=== PATIENT | female | born 1945 | race Caucasian/White ===

== ENCOUNTER → 2018-01-21 08:53 | Outpatient (CLI) | payer MEDICARE, SELFPAY ==
[2018-01-21 10:24] LABS: Hemoglobin A1c 6.3 % (4.2-6.3)
[2018-01-21 11:03] LABS: ALB/GLOB Ratio 1.1 RATIO (0.9-2.4); AST(SGOT) 18 U/L (15-37); Alanine Aminotransfer ALT/SGPT 25 U/L (13-56); Albumin, Serum 3.9 g/dL (3.2-5.0); Alkaline Phosphatase 88 U/L (45-117); Anion Gap 8 (5-15); BUN 13 mg/dL (7-18); Calcium,Total 9.2 mg/dL (8.5-10.1); Chloride 106 mmol/L (98-107); Cholesterol 186 mg/dL (200); Creatinine, Serum 0.68 mg/dL (0.55-1.02); EST Glomerular Filtration Rate 90 mL/min (>60); Est Glom Filt Rate - Afr Amer 109 mL/min (>60); Globulin 3.7 g/dL (2.2-4.2); Glucose 111 mg/dL (74-106); High Density Lipoprotein 71 mg/dL; Potassium 3.8 mmol/L (3.5-5.1); Protein, Total 7.6 g/dL (6.4-8.2); Sodium Level 139 mmol/L (136-145); Triglycerides 128 mg/dL; Very Low Density Lipoprotein 26 mg/dL (5-40)
== END ==
PROVIDERS: Family Provider Family Medicine; PCP Family Medicine; Visit Provider Family Medicine
DX: E78.2 Mixed hyperlipidemia (principal); R73.09 Other abnormal glucose
CPT/HCPCS: 36415; 80053; 80061; 83036

== ENCOUNTER → 2018-12-18 09:20 | Outpatient (CLI) | payer MEDICARE, SELFPAY ==
[2018-12-18 11:52] LABS: Hematocrit 39.6 % (37-47); Hemoglobin 12.8 g/dl (12.0-15.0); Mean Corp Hgb Conc 32.3 g/gl (32-36); Mean Corpuscular Hgb 29.6 pg (27.0-32.0); Mean Corpuscular Volume 91.5 fL (81-99); Mean Platelet Vol. 10.4 fl (6.2-12.0); Platelet Count 327 K/mm3 (150-450); RBC Distribution Width CV 14.1 % (11.6-14.6); RBC Distribution Width SD 47.5 fl (35.1-43.9); Red Blood Count 4.33 M/mm3 (4.2-5.4); Scan Indicated on CBC? Y/N NO; White Blood Count 6.2 K/mm3 (4.4-11.0)
[2018-12-18 12:55] LABS: AST(SGOT) 21 U/L (15-37); Alanine Aminotransfer ALT/SGPT 29 U/L (13-56); Albumin, Serum 3.8 g/dL (3.2-5.0); Alkaline Phosphatase 65 U/L (45-117); Anion Gap 8 (5-15); BUN 10 mg/dL (7-18); BUN/Creat Ratio 13.9 RATIO (10-20); Calcium,Total 8.9 mg/dL (8.5-10.1); Chloride 106 mmol/L (98-107); Cholesterol 157 mg/dL (200); Creatinine, Serum 0.72 mg/dL (0.55-1.02); EST Glomerular Filtration Rate 84 mL/min (>60); Est Glom Filt Rate - Afr Amer 102 mL/min (>60); Globulin 3.7 g/dL (2.2-4.2); Glucose 82 mg/dL (74-106); High Density Lipoprotein 63 mg/dL; Potassium 4.1 mmol/L (3.5-5.1); Protein, Total 7.5 g/dL (6.4-8.2); Sodium Level 140 mmol/L (136-145); Thyroid Stim Hormone (TSH) 2.06 uIU/mL (0.358-3.74); Triglycerides 110 mg/dL; Very Low Density Lipoprotein 22 mg/dL (5-40)
== END ==
PROVIDERS: Family Provider Family Medicine; PCP Family Medicine; Referring Provider Family Medicine; Visit Provider Family Medicine
DX: R73.09 Other abnormal glucose (principal); E78.2 Mixed hyperlipidemia; R53.1 Weakness; R42 Dizziness and giddiness
CPT/HCPCS: 36415; 80053; 80061; 83036; 84443; 85027

== ENCOUNTER → 2020-12-21 10:15 | Outpatient (CLI) | payer MEDICARE, SELFPAY ==
[2020-12-21 11:32] LABS: AST(SGOT) 14 U/L (15-37); Alanine Aminotransfer ALT/SGPT 23 U/L (13-56); Albumin, Serum 3.8 g/dL (3.2-5.0); Alkaline Phosphatase 78 U/L (45-117); Anion Gap 6 (5-15); BUN 15 mg/dL (7-18); Calcium,Total 9.2 mg/dL (8.5-10.1); Chloride 107 mmol/L (98-107); Creatinine, Serum 0.72 mg/dL (0.55-1.02); EST Glomerular Filtration Rate 85 mL/min (>60); Est Glom Filt Rate - Afr Amer 102 mL/min (>60); Globulin 3.8 g/dL (2.2-4.2); Glucose 122 mg/dL (74-106); Potassium 3.8 mmol/L (3.5-5.1); Protein, Total 7.6 g/dL (6.4-8.2); Sodium Level 139 mmol/L (136-145)
== END ==
PROVIDERS: PCP Family Medicine; Referring Provider Family Medicine; Visit Provider Family Medicine
DX: E78.2 Mixed hyperlipidemia (principal)
CPT/HCPCS: 36415; 80053

== ENCOUNTER 2021-10-16 23:53 | Emergency (ER) | payer MEDICARE, SELFPAY ==
[2021-10-16 23:54] VITALS: BP 201/153; PULSE 71; RESP 17; TEMP 36.6; O2SAT 97; BMI 28.8
--- NOTE | 2021-10-17 00:43 | RAD_ITS ---
STUDY: X-RAY - LUMBAR SPINE REASON FOR EXAM: Female, 76 years old. Back pain TECHNIQUE: 3-6 view(s) of the lumbar spine were obtained. COMPARISON: None FINDINGS: Mild exaggerated lordosis. No focal listhesis. There is no substantial scoliosis. No vertebral body fracture. Moderate degenerative change of the intervertebral disc spaces at L2-L3 with similar change, to a lesser degree, seen throughout remainder the lumbar spine of moderate degenerative change of the facet joints from L3 through S1. No paraspinal soft tissue density. RAD/Lumbar Spine 2 or 3 Views IMPRESSION: 1. No acute abnormality of the lumbar spine. 2. Mild to moderate multilevel degenerative disc and joint disease of the lumbar spine Electronically Signed: Sander Renae MD at 3:32 EST ,
[2021-10-17] MEDS: Ketorolac 15 MG/ML Vial IM (00:49)
[2021-10-17] MEDS: Lidocaine 5% Patch 1 PATCH TOPICAL (00:49)
--- NOTE | 2021-10-17 00:52 | ED.VIS.BACK ---
HPI History of Present Illness Chief Complaint: Back Narrative Narrative: 76-year-old female presenting with her out of concern for back pain. She states that she and her have been moving from [place] to [place] and have been lifting and carrying things. She denies any direct trauma. She states that her back has been hurting her for the last couple of days. She states she is able to ambulate. When she is cooking and cleaning and working it seems to improve, however when she tries to lay flat her back aches. She has been taking ibuprofen with some relief of this but it has not gone away. She has been using a heating pad. Patient denies any loss of bladder bowel control. She denies urinary retention. 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 She admits to one loose stool today. She is not had any other GI complaints. She is not nauseous. PFSH PFSH Home Medications aspirin [Aspir-81] 81 mg PO DAILY 10/17/21 [History Last Taken Unknown] fluoxetine 40 mg DAILY 10/17/21 [History Last Taken Unknown] lidocaine [Lidoderm] See Rx Instructions .ROUTE .COMPLEX #1 ea 10/17/21 [Rx Last Taken Unknown] loratadine [Claritin] 10 mg PO DAILY 10/17/21 [History Last Taken Unknown] multivitamin [Multi-Vitamin] 1 tab PO DAILY 10/17/21 [History Last Taken Unknown] naproxen [Naprosyn] 500 mg PO BID PRN #20 tab 10/17/21 [Rx Last Taken Unknown] Allergy/AdvReac Type Severity Reaction Status Date / Time No Known Allergies Allergy Verified 10/16/21 23:57 Social History Smoking Status: Never smoker ROS ROS ED Constitutional Constitutional ED: Denies chills or fever(s) Eyes Eyes: Denies blurry vision or diplopia ENT ENT ED: Denies rhinorrhea or sore throat Cardiovascular Cardiovascular: Denies chest pain or palpitations Respiratory/Chest Respiratory/Chest: Denies dyspnea or sputum Gastrointestinal Gastrointestinal: Reports diarrhea; Denies abdominal pain, constipation, nausea or vomiting Genitourinary Genitourinary ED: Denies dysuria or hematuria Musculoskeletal Musculoskeletal: Reports back pain Integumentary Denies rash Neurologic Neurologic: Denies headache(s) or paresthesias Psychiatric Psychiatric: Denies anxiety or depression EXAM Physical Exam Const Vital Signs: 10/16/21 23:54 Temperature 97.8 F Temperature Source Temporal Pulse Rate 71 Respiratory Rate 17 Blood Pressure 201/153 H Blood Pressure Mean 169 Pulse Ox 97 Oxygen Delivery Method Room Air Positive well nourished General Appearance ED: NAD; Negative for pallor HEENT Reports moist mucous membranes Negative for trauma Eyes PERRL and EOMs intact bilaterally Resp normal respiratory effort and clear to auscultation bilaterally Cardio regular rate and regular rhythm GI normal to inspection, nondistended, normoactive bowel sounds Back/Spine Back/Spine Narrative: Tenderness to palpation to the bilateral lumbar paraspinal musculature. There is no midline spinal deformity or step-off. Patient able to come from a lying position to sitting and standing without difficulty. Extremity normal to inspection Neuro oriented x3 and no sensory deficits noted Sensorium / Orientation: alert Psych mental status grossly normal Skin no rashes or lesions noted General Skin Exam: Negative for jaundice or pallor MDM MDM MDM Narrative Medical decision making narrative: Patient presenting with lumbar back pain. She has no direct trauma. She states it hurts across her back. She is been lifting and pulling things as she has been moving from [place]. No symptoms of cauda equina syndrome. Patient given Toradol and a Lidoderm patch. She has some improvement with this. X-ray of the lumbar spine on my interpretation shows no acute abnormality although there is some degenerative change. The radiologist agree. She will be given a prescription Naprosyn and follow-up with her primary care physician. Impression: 1. Lumbar strain Lab Data Attestation: I reviewed the patient's lab results. Radiography Diagnostic Testing: Clinical Impression(s) from Imaging Studies Lumbar Spine X-Ray 10/17/21 00:43 IMPRESSION: 1. No acute abnormality of the lumbar spine. 2. Mild to moderate multilevel degenerative disc and joint disease of the lumbar spine Electronically Signed: Sander Renae MD at 3:32 EST , Discharge Plan Triage Chief Complaint: Back ED Provider: Felice Diaz Dx/Rx/DC Orders Instructions: ED Back Sprain/Strain Prescriptions: New naproxen [Naprosyn] 500 mg tablet 500 mg PO BID PRN (Reason: pain) Qty: 20 RF: 0 lidocaine [Lidoderm] 5 % adhesive patch,medicated See Rx Instructions .ROUTE .COMPLEX Qty: 1 RF: 0 No Action fluoxetine 40 mg capsule 40 mg DAILY RF: 0 multivitamin [Multi-Vitamin] Tablet 1 tab PO DAILY RF: 0 aspirin [Aspir-81] 81 mg Tablet,Delayed Release (Dr/Ec) 81 mg PO DAILY RF: 0 loratadine [Claritin] 10 mg Tablet 10 mg PO DAILY RF: 0 Primary Care Provider: Kerwin العراقي Referrals: Kerwin العراقي MD [Primary Care Provider] - Disposition Disposition: Home, Self Care
== END 2021-10-17 03:48 | disposition home or self-care (01) ==
PROVIDERS: Emergency Provider Student in an Organized Health Care Education/Training Program; PCP Family Medicine; Visit Provider Student in an Organized Health Care Education/Training Program
DX: S39.012A Strain of muscle, fascia and tendon of lower back, initial encounter (principal); Y99.0 Civilian activity done for income or pay; X50.0XXA Overexertion from strenuous movement or load, initial encounter; Z79.82 Long term (current) use of aspirin
CPT/HCPCS: 72100; 99282

== ENCOUNTER 2021-10-31 06:50 | Emergency (ER) | payer MEDICARE, SELFPAY ==
[2021-10-31 06:53] VITALS: BP 198/58; PULSE 61; RESP 18; TEMP 36.1; O2SAT 100; BMI 32.9
--- NOTE | 2021-10-31 07:12 | ED.VIS.BACK ---
HPI History of Present Illness Chief Complaint: Back Informant: patient Onset/Context/Timing Onset: Weeks Context: Gradual Onset Timing: Waxes and wanes Quality: Aching and Throbbing Location: Lumbar Current Severity: Moderate Maximum Severity: Severe Narrative Narrative: Patient returns to the ER secondary to continued back pain. She was seen in the emergency room on the eighth after developing back pain. She is in the process of moving and has been lifting and carrying heavy boxes. Patient had an x-ray in the emergency room that showed degenerative changes only. She was treated with naproxen and Lidoderm patches. She followed up with her primary care physician who started her on tizanidine. She was seen by her PCP again yesterday for continued pain and switch to Celebrex instead of naproxen or ibuprofen. She presents back to the emergency room this morning with continued pain and unable to sleep secondary to pain. She does report some pain over the suprapubic area of her abdomen as well. She does note recently having a pessary placed. She states has been urinating without difficulty. Pain does not radiate down her legs. She states when she first stands her legs feel weak for just a few moments, but otherwise no loss of strength. She denies fever or chills. [facility] Medical History Anxiety Depression Inflammatory bowel disease Medical History no medical history Home Medications aspirin [Aspir-81] 81 mg PO DAILY 10/17/21 [History Last Taken Unknown] fluoxetine 40 mg DAILY 10/17/21 [History Last Taken Unknown] lidocaine [Lidoderm] See Rx Instructions .ROUTE .COMPLEX #1 ea 10/17/21 [Rx Last Taken Unknown] loratadine [Claritin] 10 mg PO DAILY 10/17/21 [History Last Taken Unknown] multivitamin [Multi-Vitamin] 1 tab PO DAILY 10/17/21 [History Last Taken Unknown] celecoxib 100 mg PO BID 10/31/21 [History Last Taken Unknown] hydrocodone-acetaminophen 1 tab PO Q6H PRN 3 Days #10 tab 10/31/21 [Rx Last Taken Unknown] tizanidine 4 mg PO TID 10/31/21 [History Last Taken Unknown] Allergy/AdvReac Type Severity Reaction Status Date / Time No Known Allergies Allergy Verified 10/31/21 06:57 Social History Smoking Status: Never smoker ROS ROS ED Constitutional Constitutional ED: Denies chills or fever(s) Eyes Eyes: Denies change in vision ENT ENT ED: Denies sore throat Cardiovascular Cardiovascular: Denies chest pain Respiratory/Chest Respiratory/Chest: Denies cough or dyspnea Gastrointestinal Gastrointestinal: Reports abdominal pain; Denies diarrhea, nausea or vomiting Genitourinary Genitourinary ED: Reports urinary frequency; Denies dysuria Musculoskeletal Musculoskeletal: Reports back pain Integumentary Denies rash Neurologic Neurologic: Denies headache(s), paresthesias or weakness Allergic/Immunologic Allergic/Immunologic ED: Denies urticaria EXAM Physical Exam Const Vital Signs: 10/31/21 06:53 Temperature 96.9 F L Temperature Source Temporal Pulse Rate 61 Respiratory Rate 18 Blood Pressure 198/58 H Blood Pressure Mean 104 Pulse Ox 100 Oxygen Delivery Method Room Air Positive well nourished and well developed General Appearance ED: well developed HEENT Reports moist mucous membranes Eyes PERRL and EOMs intact bilaterally Neck supple Resp normal respiratory effort and clear to auscultation bilaterally Cardio regular rate and regular rhythm GI normal to inspection, nondistended, normoactive bowel sounds and soft to palpation Palpation: tender suprapubic Back/Spine normal to inspection Back/Spine Narrative: Tenderness diffusely over the lumbar spine and lumbar paraspinals. No erythema or overlying skin changes. Extremity normal to inspection Neuro oriented x3 and no sensory deficits noted Sensorium / Orientation: alert Motor Exam: strength 5/5 throughout Skin no rashes or lesions noted MDM MDM MDM Narrative Medical decision making narrative: Patient was given a dose of [place] for pain. Urinalysis and CT flank obtained. Lab Data Attestation: I reviewed the patient's lab results. Labs: Laboratory Results - last 24 hr 10/31/21 07:25 Urine Color Yellow Urine Clarity Clear Urine pH 6.5 Ur Specific [place] 1.010 Urine Protein Negative Urine Glucose (UA) Normal Urine Ketones Negative Urine Occult Blood Negative Urine Nitrite Negative Urine Bilirubin Negative Urine Urobilinogen Normal Ur Leukocyte Esterase 500 H Urine RBC 0 SEEN Urine WBC 0-5 SEEN Ur Squamous Epith Cells 0 SEEN Urine Bacteria 0 SEEN Urine Mucus 0 SEEN Radiography Diagnostic Testing: Clinical Impression(s) from Imaging Studies Abdomen/Pelvis CT 10/31/21 07:45 IMPRESSION: 1. Mildly prominent gastric hernia in the posterior mediastinum. 2. The appendix is not visualized or at least difficult to find but no secondary changes of acute appendicitis. 3. Pronounced old anterior wedge compression fracture of the L1 vertebral body. 4. Mild cardiomegaly. 5. COPD. 6. No suspicious acute abnormality in the abdomen and pelvis. Electronically Signed: Gus Negron MD at 8:30 EDT , Treatment and Re-Evaluation Narrative: Patient has no evidence of acute UTI. CT scan abdomen pelvis reveals an old compression fracture of L1 but no acute findings noted. No evidence of aneurysm. Test results discussed with the patient. She will be started on [place] for pain control. She was made aware of the constipating side effects and will drink prune juice. Return instructions provided. Discharge Plan Triage Chief Complaint: Back ED Provider: Robyn Bose Dx/Rx/DC Orders Clinical Impression: Back pain Instructions: ED Back Pain (Acute or Chronic) Prescriptions: New hydrocodone-acetaminophen 5-325 mg tablet 1 tab PO Q6H PRN (Reason: pain) 3 Days Qty: 10 RF: 0 No Action fluoxetine 40 mg capsule 40 mg DAILY RF: 0 multivitamin [Multi-Vitamin] Tablet 1 tab PO DAILY RF: 0 aspirin [Aspir-81] 81 mg Tablet,Delayed Release (Dr/Ec) 81 mg PO DAILY RF: 0 loratadine [Claritin] 10 mg Tablet 10 mg PO DAILY RF: 0 lidocaine [Lidoderm] 5 % adhesive patch,medicated See Rx Instructions .ROUTE .COMPLEX Qty: 1 RF: 0 tizanidine 4 mg tablet 4 mg PO TID RF: 0 celecoxib 100 mg capsule 100 mg PO BID RF: 0 Primary Care Provider: Kerwin العراقي Referrals: Kerwin العراقي MD [Primary Care Provider] - 1 Week Disposition Disposition: Home, Self Care
[2021-10-31] MEDS: HYDROcodone Bitartrate/Apap 5/325 Tablet PO (07:20)
[2021-10-31 07:39] LABS: Bacteria 0 SEEN /hpf (None Seen); Mucous, Urine 0 SEEN /hpf (<or=2+); Red Blood Cells-Urine 0 SEEN /hpf (0-5); Squamous Epithelial Cells - UA 0 SEEN /hpf (5-10)
[2021-10-31 07:40] LABS: Color, Urine Yellow (Yellow); Glucose, Dipstick Normal (Normal); Ketone-Dipstick Negative (Negative); Leukocyte Esterase-Dipstick 500 /ul (Negative); Nitrite-Dipstick Negative (Negative); Occult Blood-Urine Negative /ul (Negative); Protein-Dipstick Negative (Negative); Urine Bilirubin Dipstick Negative (Negative); Urine Clarity Clear (Clear); Urine Urobilinogen Normal (Normal); Urine pH 6.5 (5.0 - 8.0)
--- NOTE | 2021-10-31 07:45 | CT_ITS ---
EXAM: CT ABDOMEN AND PELVIS WITHOUT INTRAVENOUS CONTRAST CLINICAL INDICATION: Back pain and abdominal pain. TECHNIQUE: Helically acquired images were obtained of the abdomen and pelvis without intravenous contrast. This CT exam was performed using one or more of the following dose reduction techniques: automated exposure control, adjustment of the mA and/or kV according to patient size, and/or use of iterative reconstruction technique. This report was created using [employer] report generation technology. COMPARISON: None. FINDINGS: LOWER THORAX: Mild cardiomegaly. Pulmonary hyperinflation suggestive of COPD. No significant pericardial effusion. ABDOMEN: LIVER: Unremarkable. Homogeneous. GALLBLADDER AND BILE DUCTS: Unremarkable. No calcified gallstones. No gallbladder distention or wall edema. No intra- or extrahepatic biliary ductal dilation. PANCREAS: Unremarkable. No focal cystic mass. SPLEEN: Unremarkable. Normal size without focal cystic or solid mass. ADRENALS: Unremarkable. No nodules. KIDNEYS AND URETERS: Unremarkable. Normal renal size and position. No hydronephrosis. STOMACH AND BOWEL: Unremarkable. No stomach or bowel distention. No focal inflammatory change. PELVIS: APPENDIX: The appendix is not visualized or difficult to find. There are no secondary changes of acute appendicitis. BLADDER: Unremarkable. REPRODUCTIVE: Unremarkable as visualized. No mass. ABDOMEN and PELVIS: INTRAPERITONEAL SPACE: Unremarkable. No ascites or other fluid collection. No free air. BONES/JOINTS: Pronounced old anterior wedge compression fracture of the L1 vertebral body with minimal retropulsion of the posterior superior corner. No suspicious lytic or blastic abnormality. SOFT TISSUES: Chronic prominent gastric hernia in the posterior mediastinum. VASCULATURE: Unremarkable. Abdominal aorta is non-dilated. LYMPH NODES: Unremarkable. No enlarged lymph nodes. CT/Abdomen/Pelvis without Cont IMPRESSION: 1. Mildly prominent gastric hernia in the posterior mediastinum. 2. The appendix is not visualized or at least difficult to find but no secondary changes of acute appendicitis. 3. Pronounced old anterior wedge compression fracture of the L1 vertebral body. 4. Mild cardiomegaly. 5. COPD. 6. No suspicious acute abnormality in the abdomen and pelvis. Electronically Signed: Gus Negron MD at 8:30 EDT ,
[2021-10-31 07:51] LABS: White Blood Cells 0-5 SEEN /hpf (0-5)
[2021-10-31 09:17] VITALS: RESP 16
== END 2021-10-31 09:18 | disposition home or self-care (01) ==
PROVIDERS: Emergency Provider Emergency Medicine; PCP Family Medicine; Visit Provider Emergency Medicine
DX: M54.9 Dorsalgia, unspecified (principal); R10.2 Pelvic and perineal pain
CPT/HCPCS: 74176; 81001; 99283; A4216

== ENCOUNTER 2021-11-15 15:24 | Outpatient (CLI) | payer MEDICARE, SELFPAY ==
[2021-11-15 16:17] LABS: Absolute Neutrophil Count 6.7 X10^3/uL (2.0-7.7); Basophil# 0.07 X10^3/uL; Basophil% 0.7 % (0-1); Eosinophil# 0.17 X10^3/uL; Eosinophils% 1.8 % (0-5); Hematocrit 35.4 % (37-47); Hemoglobin 11.7 g/dL (12.0-15.0); Lymphocyte % 19.6 % (19-41); Mean Corp Hgb Conc 33.1 g/dL (32-36); Mean Corpuscular Hgb 30.4 pg (27.0-32.0); Mean Corpuscular Volume 91.9 fL (81-99); Mean Platelet Vol. 10.5 fl (6.2-12.0); Monocyte# 0.85 X10^3/uL; Monocyte% 8.8 % (0-10); NRBC Flagged by Analyzer 0 % (0-5); Neutrophil # 6.65 X10^3/uL (2.7-7.7); Neutrophil % 68.8 % (47-70); Platelet Count 405 K/mm3 (150-450); RBC Distribution Width CV 13.5 % (11.6-14.6); RBC Distribution Width SD 45.7 fl (35.1-43.9); Red Blood Count 3.85 M/mm3 (4.2-5.4); White Blood Count 9.7 K/mm3 (4.4-11.0)
== END 2021-11-15 23:59 | disposition home or self-care (01) ==
LOC: LAB 15:27
PROVIDERS: PCP Family Medicine; Visit Provider Family Medicine
DX: R10.30 Lower abdominal pain, unspecified (principal); R19.5 Other fecal abnormalities; R11.2 Nausea with vomiting, unspecified; R53.83 Other fatigue
CPT/HCPCS: 36415; 85025

== ENCOUNTER 2024-02-28 03:34 | Emergency (ER) | payer MEDICARE, SELFPAY ==
[2024-02-28 03:35] VITALS: BP 207/104; PULSE 90; RESP 9; TEMP 36.4; O2SAT 98; BMI 32.1
--- NOTE | 2024-02-28 03:54 | ED.VIS.FALL ---
HPI HPI - Fall History of Present Illness Chief Complaint: Back Informant: patient and spouse/S.O. Occured/Mechanism Occurred: Days Mechanism/Context: Yes same level fall Usually ambulates: Without assistance Pain/Injury Pain Location: back and lower extremity Quality of Pain: Dull and Aching Current Severity: Mild Maximum Severity: Mild Associated Symptoms Associated Symptoms: Negative for Parasthesias, Weakness, Loss of function, Inability to ambulate, Loss of consciousness or Amnesia Narrative Narrative: 78-year-old female history of dementia and prior L1 compression fracture. Per her , he states that on Friday she fell at home he believes injuring her mid back area. And landing on her right knee. He said initially he did not think she wanted to get evaluated and they brought her up for several times but she did not want to come in. But he says she is complaining of midthoracic back pain since the fall. No bowel or bladder incontinence. No fever. No recent illness. 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 Depression Inflammatory bowel disease Anxiety Home Medications ?Medication ?Instructions ?Recorded ?Last Taken ?Type aspirin 81 mg tablet,delayed 81 mg PO DAILY 10/17/21 Unknown History release fluoxetine 40 mg capsule 40 mg PO DAILY 10/17/21 Unknown History loratadine 10 mg tablet (Claritin) 10 mg PO DAILY 10/17/21 Unknown History multivitamin 1 tab PO DAILY 10/17/21 Unknown History buspirone 10 mg tablet 10 mg PO TID 02/28/24 Unknown History donepezil 5 mg tablet 5 mg PO QHS 02/28/24 Unknown History melatonin 10 mg capsule 10 mg PO QHS 02/28/24 Unknown History memantine 10 mg tablet 10 mg PO BID 02/28/24 Unknown History naproxen 500 mg tablet 500 mg PO BID 02/28/24 Unknown History Allergy/AdvReac Type Severity Reaction Status Date / Time No Known Allergies Allergy Verified 02/28/24 03:44 Family History no significant family his Surgical History no surgical history Social History Smoking Status: Never smoker ROS ROS ED ROS Narrative They both deny recent illness. Review of Systems ROS Unobtainable: Denies due to encephalopathy Constitutional Constitutional ED: Denies chills or fever(s) ENT ENT ED: Denies ear pain, rhinorrhea or sore throat Cardiovascular Cardiovascular: Denies chest pain Respiratory/Chest Respiratory/Chest: Denies cough Gastrointestinal Gastrointestinal: Denies abdominal pain, diarrhea, nausea or vomiting Genitourinary Genitourinary ED: Denies dysuria Musculoskeletal Musculoskeletal: Reports back pain; Denies arthralgias or neck pain Integumentary Denies abscess or Abrasions Neurologic Neurologic: Denies headache(s) Psychiatric Psychiatric: Denies anxiety Endocrine Endocrinology: Denies polydipsia Hematologic/Lymphatic Hematologic/Lymphatic: Denies easy bleeding Allergic/Immunologic Allergic/Immunologic ED: Denies mouth swelling, tongue swelling or urticaria EXAM Physical Exam Narrative Exam Narrative: 78-year-old female vital signs stable afebrile. Initial blood pressure 207/104. She does not look septic or toxic in any distress. at bedside. H EENT exam pupils round react to light. No signs of trauma to her face or scalp. Nontender no hematomas or lacerations. C-spine and neck nontender. Lungs clear. Heart regular rhythm rate about 90 no murmur. Chest wall and ribs nontender. Abdomen soft nontender. Pelvic girdle intact. No shortening or rotation either hip. She has normal fresh foods clerk strength. Normal range of motion to her arms without deformity or tenderness. Hips are nontender. Right knee has bruising but she is able to flex and extend the right knee. There is minimal swelling. Dorsi and plantarflexion is intact. Left lower extremity is nontender. Neurologically she is awake. She does answer questions follow commands. She does have some dementia. Back there is some redness paraspinal soft tissue from a heating pad on her mid back. She is kyphotic. There is no significant bony tenderness. Const Vital Signs: 02/28/24 03:35 Temperature 97.6 F L Temperature Source Temporal Pulse Rate 90 Respiratory Rate 9 L Blood Pressure 207/104 H Blood Pressure Mean 138 Pulse Ox 98 Oxygen Delivery Method Room Air Positive well nourished and well developed; Negative for cachectic, contractures or unkempt General Appearance ED: well developed and NAD; Negative for unkempt, cachectic or contractures Nutritional Appearance: Negative for cachectic HEENT Reports normocephalic atraumatic; Negative for trauma, contusion, hematoma or tenderness Eyes PERRL and EOMs intact bilaterally General Eye ED: Negative for pale conjunctiva or scleral icterus Neck full ROM, no lymphadenopathy and supple General: Negative for tenderness Chest Wall inspection of chest normal and palpation of chest normal Resp normal respiratory effort, no retractions and clear to auscultation bilaterally Effort and Inspection: Negative for pain with movement Auscultation: Negative for rales, rhonchi, wheezes, diminished lung sounds or other Cardio regular rate, regular rhythm, S1 normal heart sound, S2 normal heart sound and no murmurs Rate: Negative for bradycardia or tachycardic Rhythm: Negative for abnormal rhythm Bruits: Negative for other GI non-tender, non-distended and no masses Inspection: Negative for abdominal distention Auscultation: normoactive bowel sounds Palpation: soft; Negative for guarding or rebound tenderness present Back/Spine no CVA tenderness Back/Spine Narrative: (Thoracic spinal tenderness. In the soft tissue. No bruising. General Back: Negative for CVA tenderness Cervical Spine: Negative for cervical spine tenderness Lumbar Spine / Lower Back: Negative for lumbar spinal tenderness Neuro oriented x3, moves all extremities and no focal motor deficits [place] Coma Scale: document GCS findings Spontaneous Obeys Commands Oriented 15 Sensorium / Orientation: alert, oriented to person, oriented to place and orientation impaired; Negative for oriented to time, confused, lethargic or stuporous Motor Exam: strength 5/5 throughout Psych mental status grossly normal and thought process normal Appearance: Negative for unkempt Attitude: No agitated Mood & Affect: Negative for depressed, anxious or tearful Skin Lesions: no lesions Rashes: no rashes Trauma: Negative for abrasion, laceration or puncture MDM MDM MDM Narrative Medical decision making narrative: 78-year-old female that fell has bruising around her right knee but can flex and extend it. X-ray will be obtained of the knee. And also her thoracic spine. History & Record Review Discussion w/independent historian: Patient and Family Additional record(s) reviewed:: Prior inpatient record, Prior outpatient record, Prior ED visit, Prior labs and No prior records Radiography Diagnostic Testing: Thoracic spine x-ray, interpreted by myself Right knee x-ray, 4 views, interpreted by myself shows Discharge Plan Triage Chief Complaint: Back ED Provider: Riley Warner Dx/Rx/DC Orders Prescriptions: No Action fluoxetine 40 mg capsule 40 mg PO DAILY Patient Comments: TAKE 1 CAPSULE BY MOUTH ONCE DAILY multivitamin [Multi-Vitamin] Tablet 1 tab PO DAILY aspirin [Aspir-81] 81 mg Tablet,Delayed Release (Dr/Ec) 81 mg PO DAILY loratadine [Claritin] 10 mg Tablet 10 mg PO DAILY donepezil 5 mg tablet 5 mg PO QHS buspirone 10 mg tablet 10 mg PO TID memantine 10 mg tablet 10 mg PO BID melatonin 10 mg capsule 10 mg PO QHS naproxen 500 mg tablet 500 mg PO BID Primary Care Provider: Kerwin العراقي Referrals: Kerwin العراقي MD [Primary Care Provider] - Print Language: Croatian
--- NOTE | 2024-02-28 04:15 | RAD_ITS ---
EXAM: XR THORACIC SPINE, 2 VIEWS CLINICAL INDICATION: fall and pain TECHNIQUE: Frontal and lateral views of the thoracic spine. COMPARISON: No relevant prior studies available. FINDINGS: VERTEBRAE: Mild levoscoliosis. Approximately 20% loss of height of T8 that appears old. Marked compression fracture of L1 only seen on the AP view. Also appears old. No spondylolisthesis. No significant facet arthropathy. DISC SPACES: Unremarkable. Disc spaces are maintained. RAD/Thoracic Spine 2 Views IMPRESSION: 1. Mild levoscoliosis. 2. Approximately 20% loss of height of T8 that appears old. Consider CT if clinically indicated. 3. Marked compression fracture of L1 only seen on the AP view. Also appears old. Consider CT if clinically indicated. Electronically Signed: Vivek Brand MD at 5:16 EDT ,
--- NOTE | 2024-02-28 04:15 | RAD_ITS ---
EXAM: XR RIGHT KNEE COMPLETE, 4 OR MORE VIEWS CLINICAL INDICATION: fall TECHNIQUE: Four or more views of the right knee. COMPARISON: No relevant prior studies available. FINDINGS: BONES/JOINTS: Unremarkable. No acute fracture. No subluxation. Normal alignment. Preservation of the joint space. No sclerotic or destructive changes observed. SOFT TISSUES: Unremarkable. No soft tissue swelling or gas. No radiopaque foreign body. RAD/Knee 4 or More Views IMPRESSION: Negative right knee x-rays. Electronically Signed: Vivek Brand MD at 5:13 EDT ,
[2024-02-28] MEDS: HYDROcodone Bitartrate/Apap 5/325 Tablet PO (04:32)
[2024-02-28 04:34] VITALS: BP 199/84; PULSE 74; RESP 18; O2SAT 95
[2024-02-28 05:14] VITALS: BP 164/110; PULSE 79; RESP 18; TEMP 36.6; O2SAT 95
[2024-02-28] MEDS: Electrolyte Solution/Peg's 4000 ML 2000 ML PO (05:16)
== END 2024-02-28 05:24 | disposition home or self-care (01) ==
PROVIDERS: Emergency Provider Emergency Medicine; PCP Family Medicine; Visit Provider Emergency Medicine
DX: M54.6 Pain in thoracic spine (principal); F03.90 Unspecified dementia, unspecified severity, without behavioral disturbance, psychotic disturbance, mood disturbance, and anxiety; S80.01XA Contusion of right knee, initial encounter; W19.XXXA Unspecified fall, initial encounter; Y92.009 Unspecified place in unspecified non-institutional (private) residence as the place of occurrence of the external cause
CPT/HCPCS: 72070; 73564; 99283

== ENCOUNTER 2024-03-08 05:49 | Emergency (ER) | payer MEDICARE, SELFPAY ==
[2024-03-08 05:50] VITALS: BP 134/68; PULSE 89; RESP 18; TEMP 36.5; O2SAT 97; BMI 27.1
--- NOTE | 2024-03-08 06:12 | CT_ITS ---
INDICATION: GI bleed EXAMINATION: CTA abdomen and pelvis - TECHNIQUE: Routine abdominal CT angiogram protocol was performed with IV contrast. MIP images provided. The protocol utilizes one or more of the following dose reduction techniques: automated exposure control, adjustment of mA and/or kV according to patient size,and/or use of iterative reconstruction technique. IV Contrast: IV 100mL Isovue-370 . RADIATION DOSAGE (If Supplied By Facility): CTDIvol = ( 19.10 ) mGy, DLP = ( 801.29 ) mGycm COMPARISON: CT abdomen and pelvis 10/31/2021 FINDINGS: AORTA: Normal caliber. No dissection. Atherosclerotic calcifications and at the origins of the major branches. CELIAC ARTERY: Patent. SMA: Patent. RENAL ARTERIES: Patent. MARICARMEN: Patent. ILIAC ARTERIES: Patent. RETROPERITONEUM: Unremarkable. Other vascular: No definite contrast blush or extravasation to suggest site of active GI bleeding. Detail is suboptimal due to patient motion. LOWER CHEST: Minimal dependent atelectasis in the lung bases. LIVER: Unremarkable. GALLBLADDER/BILE DUCTS: Unremarkable. PANCREAS: Unremarkable. SPLEEN: Unremarkable. ADRENAL GLANDS: Unremarkable. KIDNEYS/URETERS: Unremarkable. BOWEL/MESENTERY: Moderate-sized hiatal hernia increased size compared to prior study. Suggestion of wall thickening of the ascending through transverse colon is likely exaggerated by suboptimal distention. Scattered diverticula throughout the colon. No bowel obstruction. APPENDIX: Identified and normal. PERITONEUM: No free air. No free fluid. REPRODUCTIVE ORGANS: Unremarkable. Pessary noted. BLADDER: Unremarkable. BONES/SOFT TISSUES: No acute abnormality. Marked compression abnormality of L1 vertebral body with increased vertebral body height loss and kyphosis increased compared to the prior study, uncertain age most likely nonacute OTHER: None. CT/CTA Abd/Pelvis W/WO Contrast IMPRESSION: No definite site of active GI bleeding identified. Suggestion of wall thickening ascending through transverse colon is likely nondistention, colitis less likely. Colonic diverticulosis without evidence of acute diverticulitis. Moderate size hiatal hernia, increased compared to prior study. Marked L1 vertebral body compression fracture with increased vertebral body height loss and kyphosis compared to prior study, uncertain age. Electronically Signed: Bertha Sapp MD at 7:52 EDT ,
[2024-03-08] MEDS: 0.9% Normal Saline (1000mL) 1,000 ML 999 ML IV (06:15)
[2024-03-08 06:23] LABS: Absolute Lymphocyte Count 2.76 X10^3/uL (0.83-4.51); Absolute Neutrophil Count 10.4 X10^3/uL (2.0-7.7); Basophil# 0.08 X10^3/uL; Basophil% 0.6 % (0-1); Eosinophil# 0.11 X10^3/uL; Eosinophils% 0.8 % (0-5); Hematocrit 28.7 % (37-47); Hemoglobin 9.3 g/dL (12.0-15.0); Lymphocyte # 2.76 X10^3/ul (0.83-4.51); Mean Corp Hgb Conc 32.4 g/dL (32-36); Mean Corpuscular Volume 92.6 fL (81-99); Mean Platelet Vol. 10.3 fl (6.2-12.0); Monocyte% 7.6 % (0-10); NRBC Flagged by Analyzer 0 % (0-5); Neutrophil # 10.37 X10^3/uL (2.7-7.7); Neutrophil % 71.3 % (47-70); Platelet Count 443 K/mm3 (150-450); RBC Distribution Width CV 14.6 % (11.6-14.6); White Blood Count 14.5 K/mm3 (4.4-11.0)
--- NOTE | 2024-03-08 06:27 | EDS_ITS ---
HPI History of Present Illness Chief Complaint: Nausea/Vomiting Informant: patient, spouse/S.O., family and EMS Narrative Narrative: Patient is a 78-year-old female from home with past medical history of anxiety and depression and as well as IBS and dementia. She was seen in the ER on February 27 secondary to mechanical fall and was found to have a thoracic and lumbar compression fracture. She was placed on Percocet and discharged home with family. Family states that she was recently placed on Celebrex by the family physician secondary to persistent pain. Patient went to bed normally and then awoke this morning covered in emesis that appeared dark/coffee-ground in nature. also states he noticed some dark stools recently. Family reports that patient does appear paler in color than her baseline. 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 Depression Inflammatory bowel disease Anxiety Home Medications ?Medication ?Instructions ?Recorded ?Last Taken ?Type fluoxetine 40 mg capsule 60 mg PO DAILY 10/17/21 Unknown History multivitamin 1 tab PO DAILY 10/17/21 Unknown History buspirone 10 mg tablet 10 mg PO TID 02/28/24 Unknown History melatonin 10 mg capsule 10 mg PO QHS PRN sleep 02/28/24 Unknown History memantine 10 mg tablet 10 mg PO BID 02/28/24 Unknown History oxycodone-acetaminophen 5 mg-325 1 tab PO Q6H PRN pain 7 days #14 02/28/24 Unknown Rx mg tablet (Percocet) tabs celecoxib 100 mg capsule 100 mg PO BID PRN PRN pain 03/08/24 Unknown History polyethylene glycol 3350 17 17 g PO DAILY 03/08/24 Unknown History gram/dose oral powder (ClearLax) sennosides 8.6 mg tablet 17.2 mg PO BID 03/08/24 Unknown History (Evac-U-Gen (sennosides)) Allergy/AdvReac Type Severity Reaction Status Date / Time No Known Allergies Allergy Verified 03/08/24 05:55 Family History no significant family his Surgical History no surgical history Social History Smoking Status: Never smoker ROS ROS ED ROS Narrative Please note review of systems may be unreliable secondary to patient's history of dementia Constitutional Constitutional ED: Denies chills or fever(s) Eyes Eyes: Denies blurry vision or change in vision ENT ENT ED: Denies sore throat Cardiovascular Cardiovascular: Denies chest pain, palpitations or racing heartbeat Respiratory/Chest Respiratory/Chest: Denies cough or dyspnea Gastrointestinal Gastrointestinal: Reports nausea and vomiting; Denies abdominal pain or diarrhea Genitourinary Genitourinary ED: Denies dysuria or hematuria Musculoskeletal Musculoskeletal: Reports back pain Integumentary Denies rash Neurologic Neurologic: Denies headache(s) Hematologic/Lymphatic Hematologic/Lymphatic: Denies easy bleeding or easy bruising EXAM Physical Exam Const Vital Signs: 03/08/24 05:50 Temperature 97.7 F L Temperature Source Oral Pulse Rate 89 Respiratory Rate 18 Blood Pressure 134/68 H Blood Pressure Mean 90 Pulse Ox 97 Oxygen Delivery Method Room Air Positive well nourished and well developed General Appearance ED: well developed and pallor HEENT Reports moist mucous membranes HEENT Narrative: No tongue or lip swelling. No airway edema or compromise No secondary findings in the posterior pharynx to suggest infection No tongue or lip biting noted There is dried dark emesis on the patient's lips consistent with history of coffee-ground emesis Eyes PERRL and EOMs intact bilaterally General Eye ED: Yes pale conjunctiva; Negative for scleral icterus Neck supple Neck Narrative: No nuchal rigidity or meningeal signs Resp normal respiratory effort and clear to auscultation bilaterally Resp Narrative: No nasal flaring retractions tachypnea or accessory muscle use Cardio regular rate and regular rhythm GI normal to inspection, nondistended, normoactive bowel sounds, non-tender, non- distended and no masses GI Narrative: No voluntary guarding or rigidity or pulsatile mass Auscultation: normoactive bowel sounds Palpation: soft Narrative: Rectal tone is normal. Stool is brown in color. No obvious external hemorrhoid noted no obvious internal hemorrhoid palpated Extremity normal to inspection Neuro CN's II-XII intact bilaterally and no sensory deficits noted Neuro Narrative: Patient is at her baseline mental status without focal neurologic deficit Sensorium / Orientation: alert Psych mental status grossly normal Skin no rashes or lesions noted Skin Narrative: Skin is pale in color and capillary refill is at 3 seconds General Skin Exam: pallor; Negative for jaundice MDM MDM MDM Narrative Medical decision making narrative: Patient arrived to the ER hemodynamically stable but family reported coffee- ground emesis. She was recently placed on Celebrex which could be the cause of this. Family states that there is no remote history of alcohol abuse or gastritis. With concern for internal bleeding basic labs were obtained and her hemoglobin is low at 9.3 which is down from a few years ago at 12 but this is well above a transfusion value of 7. The patient's BUN is elevated at 55 which also correlates with upper GI bleed. Stool however is not melanotic. Secondary to concern for GI bleed patient was given IV fluids as well as a Protonix bolus and drip. She is hemodynamically stable and does not need vasopressors or airway protection but with concern for active internal bleeding a CTA will be obtained. Plan of care will be to potentially admit to the hospital for further workup after laboratory studies and CT report are resulted. CTA is still pending and therefore patient will be signed out to the day physician Dr. Jaramillo. History & Record Review Discussion w/independent historian: Patient and Family Lab Data Attestation: I reviewed the patient's lab results. Labs: Laboratory Results - last 24 hr 03/08/24 05:37 WBC 14.5 H RBC 3.10 L Hgb 9.3 L Hct 28.7 L MCV 92.6 MCH 30.0 MCHC 32.4 RDW Std Deviation 49.0 H RDW Coeff of Shon 14.6 Plt Count 443 MPV 10.3 Immature Gran % (Auto) 0.700 Neut % (Auto) 71.3 H Lymph % (Auto) 19.0 Bell % (Auto) 7.6 Eos % (Auto) 0.8 Baso % (Auto) 0.6 Absolute Neuts (auto) 10.4 H Absolute Lymphs (auto) 2.76 Nucleated RBC % 0 Sodium 140 Potassium 3.9 Chloride 109 H Carbon Dioxide 23.0 Anion Gap 8 BUN 55 H Creatinine 0.79 Estim Creat Clear Calc 58.30 Est GFR (MDRD) Af Amer 91 Est GFR (MDRD) Non-Af 75 BUN/Creatinine Ratio 69.7 H Glucose 189 H Calcium 9.0 Total Bilirubin 0.40 Direct Bilirubin 0.09 AST 13 L ALT 22 Alkaline Phosphatase 81 Total Protein 6.5 Albumin 3.1 L Globulin 3.4 Discharge Plan Triage Chief Complaint: Nausea/Vomiting ED Provider: Andes,Regino Dx/Rx/DC Orders Clinical Impression: GI (gastrointestinal bleed), Dementia, Acute blood loss anemia Prescriptions: No Action fluoxetine 40 mg capsule 60 mg PO DAILY Patient Comments: TAKE 1 CAPSULE BY MOUTH ONCE DAILY multivitamin [Multi-Vitamin] Tablet 1 tab PO DAILY buspirone 10 mg tablet 10 mg PO TID memantine 10 mg tablet 10 mg PO BID melatonin 10 mg capsule 10 mg PO QHS PRN (Reason: sleep) oxycodone-acetaminophen [Percocet] 5-325 mg tablet 1 tab PO Q6H PRN (Reason: pain) 7 Days Qty: 14 0RF sennosides [Evac-U-Gen (sennosides)] 8.6 mg tablet 17.2 mg PO BID polyethylene glycol 3350 [ClearLax] 17 gram/dose powder 17 g PO DAILY celecoxib 100 mg capsule 100 mg PO BID PRN PRN (Reason: pain) Primary Care Provider: Kerwin العراقي Referrals: Kerwin العراقي MD [Primary Care Provider] - Print Language: Armenian Disposition Disposition: Acute Care Hospital [facility]
[2024-03-08 06:47] LABS: AST(SGOT) 13 U/L (15-37); Alanine Aminotransfer ALT/SGPT 22 U/L (13-56); Albumin, Serum 3.1 g/dL (3.2-5.0); Alkaline Phosphatase 81 U/L (45-117); Anion Gap 8 (5-15); BUN 55 mg/dL (7-18); BUN/Creat Ratio 69.7 RATIO (10-20); Bilirubin, Direct 0.09 mg/dL (0.00-0.30); Chloride 109 mmol/L (98-107); Creatinine, Serum 0.79 mg/dL (0.55-1.02); EST Glomerular Filtration Rate 75 mL/min (>60); Est Glom Filt Rate - Afr Amer 91 mL/min (>60); Globulin 3.4 g/dL (2.2-4.2); Glucose 189 mg/dL (74-106); Potassium 3.9 mmol/L (3.5-5.1); Protein, Total 6.5 g/dL (6.4-8.2); Sodium Level 140 mmol/L (136-145)
[2024-03-08] MEDS: Pantoprazole Sodium 80 MG in 0.9% Normal Saline (50mL Bag) 15 ML 420 MG IV BOLUS (06:49)
[2024-03-08 06:58] LABS: Prothrombin Time (Protime)PT. 13.4 SECONDS (11.7-14.9)
[2024-03-08] MEDS: Pantoprazole Sodium 80 MG in 0.9% Normal Saline (100mL Bag) 80 ML 10 MG CONT INF (07:30)
[2024-03-08 07:48] VITALS: BP 141/72; PULSE 78; RESP 17; O2SAT 98
[2024-03-08 07:50] LABS: Partial Thromboplast Time 27.8 Seconds (24.1-36.2)
[2024-03-08 08:09] LABS: Bacteria 0 SEEN /hpf (None Seen); Mucous, Urine 0 SEEN /hpf (<or=2+); Red Blood Cells-Urine 0 SEEN /hpf (0-5); Squamous Epithelial Cells - UA 0 SEEN /hpf (5-10); White Blood Cells 0 SEEN /hpf (0-5)
[2024-03-08 08:11] LABS: Color, Urine Straw (Yellow); Glucose, Dipstick Normal (Normal); Ketone-Dipstick 15 mg/dl (Negative); Leukocyte Esterase-Dipstick Negative /ul (Negative); Nitrite-Dipstick Negative (Negative); Occult Blood-Urine Negative /ul (Negative); Protein-Dipstick Negative (Negative); Urine Bilirubin Dipstick Negative (Negative); Urine Clarity Clear (Clear); Urine Urobilinogen Normal (Normal)
[2024-03-08 09:00] VITALS: BP 125/72; PULSE 76; RESP 18; O2SAT 97
[2024-03-08 10:24] LABS: Reflex Lactate? Y
[2024-03-08 10:58] VITALS: BP 135/66; PULSE 78; RESP 18; O2SAT 97
[2024-03-08 11:06] VITALS: BP 135/66; PULSE 78; RESP 18; TEMP 36.6; O2SAT 99
== END 2024-03-08 11:19 | disposition home or self-care (01) ==
PROVIDERS: Emergency Medicine; Emergency Provider Emergency Medicine; PCP Family Medicine; Visit Provider Emergency Medicine
DX: K92.2 Gastrointestinal hemorrhage, unspecified (principal); F03.90 Unspecified dementia, unspecified severity, without behavioral disturbance, psychotic disturbance, mood disturbance, and anxiety; D62 Acute posthemorrhagic anemia; K57.90 Diverticulosis of intestine, part unspecified, without perforation or abscess without bleeding; K58.9 Irritable bowel syndrome, unspecified; I65.29 Occlusion and stenosis of unspecified carotid artery; F41.9 Anxiety disorder, unspecified; E78.5 Hyperlipidemia, unspecified; F32.A Depression, unspecified; K44.9 Diaphragmatic hernia without obstruction or gangrene; M81.0 Age-related osteoporosis without current pathological fracture; Z79.899 Other long term (current) drug therapy
CPT/HCPCS: 74174; 80048; 80076; 81001; 82274; 83605; 85025; 85610; 85730; 86850; 86900; 86901; 96360; 99285; P9612; Q9967; A4216; J3490

== ENCOUNTER 2024-12-18 19:28 | Emergency (ER) | payer MEDICARE, SELFPAY ==
[2024-12-18] VITALS (15 sets, daily range): BP systolic 103–186; BP diastolic 66–93; PULSE 64–79; RESP 16–23; TEMP 36.1–36.8; O2SAT 94–98; BMI 22.7
--- NOTE | 2024-12-18 19:31 | EKG12_ITS ---
Test Reason : STROKE Blood Pressure : */* mmHG Vent. Rate : 77 BPM Atrial Rate : 77 BPM P-R Int : 164 ms QRS Dur : 88 ms QT Int : 436 ms P-R-T Axes : 57 47 82 degrees QTcB Int : 493 ms Sinus rhythm with occasional Premature ventricular complexes Nonspecific ST and T wave abnormality Prolonged QT Abnormal ECG Confirmed by Vivek Ordoñez ([id number]), photo editor GUILLERMINA MELÉNDEZ ([id number]) on 12/20/2024 9:14:39 AM Referred By: TL Confirmed By: Vivek Ordoñez
--- NOTE | 2024-12-18 19:31 | CT_ITS ---
PROCEDURE: STROKE BRAIN/HEAD WITHOUT CONT 12/18/2024 REASON FOR EXAM: NEURO DEFICIT, ACUTE, STROKE SUSPECTED TECHNIQUE: Head CT without intravenous contrast. Coronal and Sagittal reconstruction series were provided. One or more dose reduction techniques were used (e.g., Automated exposure control, adjustment of the mA and/or kV according to patient size, use of iterative reconstruction technique. COMPARISON: None FINDINGS: No acute intracranial hemorrhage, mass, mass effect, midline shift or pathologic extra-axial fluid collection. Mild parenchymal atrophy with commensurate increase in CSF containing spaces. Patchy white matter hypodensities, patient demographics favor chronic microvascular ischemic changes. Paranasal sinuses and mastoid air cells are clear. The calvarium is grossly intact. CT/STROKE Brain/Head without Cont IMPRESSION: No acute intracranial abnormality; no acute infarct, intracranial hemorrhage or extra-axial collection. Chronic microvascular ischemia and involutional changes. Reading Location: [facility]
--- NOTE | 2024-12-18 19:32 | CT_ITS ---
PROCEDURE: STROKE CTA HEAD AND NECK W/CON 12/18/2024 REASON FOR EXAM: NEURO DEFICIT, ACUTE, STROKE SUSPECTED TECHNIQUE: CTA imaging of the head and neck from the aortic arch to the skull vertex with out contrast and with intravenous contrast. Multiplanar and multisequence images were obtained. CONTRAST: Omnipaque 350 VOLUME: 100 mL Not Provided Gauge IV One or more dose reduction techniques were used (e.g., Automated exposure control, adjustment of the mA and/or kV according to patient size, use of iterative reconstruction technique). COMPARISON: None FINDINGS: Aortic Arch: Three-vessel arch branch anatomy. Atherosclerotic calcification without hemodynamically significant stenosis Brachiocephalic and Subclavians: Mild atherosclerotic plaque without significant stenosis. RIGHT Carotid: Right CCA: Mild calcified and soft plaque. Right ICA: Mild calcified and soft plaque. Maximum stenosis (NASCET): 10 % Right ECA: Unremarkable. LEFT Carotid: Left CCA: Unremarkable. Left ICA: Unremarkable. Maximum stenosis (NASCET): 0 % Left ECA: Unremarkable. Vertebrals: Codominant. Arise from the subclavians. Both vertebrals form the basilar. RIGHT Vertebral: Unremarkable. LEFT Vertebral: Unremarkable. Anatomy: [place] anatomy is normal. Aneurysm or avm: No intracranial aneurysms or large vascular malformations are identified. Anterior cerebral arteries: Unremarkable: Middle cerebral arteries: There is abrupt cutoff of the right M1 MCA branch (series 2 image 299), with a short-segment occlusion. There is reconstitution of the distal right M1, with mild-moderate stenosis, likely secondary to noncalcified plaque. Remainder of the M2 and M3 branches appear within normal limits although slightly attenuated in caliber. The left MCA demonstrates normal caliber and perfusion. Basilar artery: Unremarkable. Posterior cerebral arteries: Unremarkable. Other major branches of the posterior circulation: Unremarkable. Major venous structures: Unremarkable. Other findings: Neck: No lymphadenopathy. Lungs: Lung apices are clear. Bones: Degenerative changes of the cervical spine. 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 Scattered atherosclerotic calcification otherwise, without hemodynamically sign ificant stenosis. Red Alert: Findings communicated with on 12/18/2024 at 9 p.m. Reading Location: [facility]
--- NOTE | 2024-12-18 19:32 | EDS_ITS ---
HPI History of Present Illness Chief Complaint: Stroke Alert Informant: spouse/S.O. and family Narrative Narrative: Brought in by EMS prehospital stroke call. On arrival symptoms noted an hour ago upon awakening by significant other. They states she has not herself noted facial droop and left arm weakness. Reported last normal when they went to take a nap at 5:30 PM 2 hours ago. She does have history of dementia denies stroke history denies any blood thinners. Daughter reports she works in a neurology department stating this is a stroke. There was a noted blood pressure medicine started which was losartan stating 6 months ago. Patient reported daughter stating she is a DNR CCA however would want TNK. Per daughter with dementia baseline to self. Does not know place or time. She does not ambulate any assistance however does shuffle her gait. 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 Depression Inflammatory bowel disease Anxiety Home Medications ?Medication ?Instructions ?Recorded ?Last Taken ?Type fluoxetine 40 mg capsule 60 mg PO DAILY 10/17/21 Unkn own History multivitamin 1 tab PO DAILY 10/17/21 Unkn own History buspirone 10 mg tablet 10 mg PO TID 02/28/24 Unknow n History melatonin 10 mg capsule 10 mg PO QHS PRN sleep 02/27 Unknown History memantine 10 mg tablet 10 mg PO BID 02/28/24 Unknow n History polyethylene glycol 3350 17 17 g PO DAILY 03/08/24 Unk nown History gram/dose oral powder (ClearLax) sennosides 8.6 mg tablet 17.2 mg PO BID 03/08/24 Unkn own History (Evac-U-Gen (sennosides)) gabapentin 100 mg capsule 100 mg PO TID PRN PRN for pa in 12/18/24 Unknown History losartan 25 mg tablet 25 mg PO DAILY 12/18/24 Unkn own History trazodone 50 mg tablet 50 mg PO QHS 12/18/24 Unknow n History Allergy/AdvReac Type Severity Reaction Status Date / Time No Known Allergies Allergy Verified 12/18/24 19:34 Social History Smoking Status: Never smoker ROS ROS ED Review of Systems ROS Unobtainable: other Details: dementia EXAM Physical Exam Const Vital Signs: 12/18/24 19:41 12/18/24 19:48 12/18/24 20:00 Temperature 98.0 F 97.6 F L Temperature Source Temporal Temporal Pulse Rate 79 71 Respiratory Rate 23 H 18 Blood Pressure 103/85 H 169/72 H Blood Pressure Mean 91 104 Blood Pressure Source Blood Pressure Position Blood Pressure Location Pulse Ox 97 94 Oxygen Delivery Method Room Air Room Air Room Air 12/18/24 20:07 12/18/24 20:08 12/18/24 20:15 Temperature 97.8 F 97.6 F L Temperature Source Oral Temporal Pulse Rate 73 71 Respiratory Rate 19 H 18 Blood Pressure 169/71 H 169/75 H 186/68 H Blood Pressure Mean 106 107 Blood Pressure Source Monitor Blood Pressure Position Supine Blood Pressure Location Left Arm Pulse Ox 95 95 Oxygen Delivery Method Room Air Room Air 12/18/24 20:15 12/18/24 20:30 12/18/24 20:42 Temperature 97.6 F L 98.0 F Temperature Source Temporal Temporal Pulse Rate 71 68 77 Respiratory Rate 18 16 20 H Blood Pressure 186/68 H 177/77 H 103/85 H Blood Pressure Mean 107 110 91 Blood Pressure Source Monitor Monitor Blood Pressure Position Supine Supine Blood Pressure Location Left Arm Left Arm Pulse Ox 95 97 97 Oxygen Delivery Method Room Air Room Air 12/18/24 20:45 12/18/24 21:00 12/18/24 21:00 Temperature 97.3 F L 97.9 F Temperature Source Temporal Temporal Pulse Rate 64 64 Respiratory Rate 16 Blood Pressure 173/66 H 183/93 H 183/93 H Blood Pressure Mean 101 123 123 Blood Pressure Source Monitor Monitor Blood Pressure Position Supine Supine Blood Pressure Location Left Arm Left Arm Pulse Ox 94 96 Oxygen Delivery Method Room Air Room Air 12/18/24 21:15 12/18/24 21:26 12/18/24 21:30 Temperature 98.3 F 97.6 F L Temperature Source Temporal Temporal Pulse Rate 65 66 67 Respiratory Rate 20 H 20 H 16 Blood Pressure 186/75 H 186/75 H 181/69 H Blood Pressure Mean 112 112 106 Blood Pressure Source Monitor Monitor Monitor Blood Pressure Position Supine Supine Supine Blood Pressure Location Left Arm Left Arm Left Arm Pulse Ox 96 98 95 Oxygen Delivery Method Room Air Room Air 12/18/24 21:30 12/18/24 21:45 12/18/24 21:45 Temperature 97.0 F L 97.0 F L Temperature Source Temporal Temporal Pulse Rate 68 72 72 Respiratory Rate 17 20 H 16 Blood Pressure 181/69 H 144/85 H Blood Pressure Mean 106 104 Blood Pressure Source Monitor Blood Pressure Position Supine Supine Supine Blood Pressure Location Left Arm Left Arm Left Arm Pulse Ox 98 96 96 Oxygen Delivery Method Room Air 12/18/24 22:00 12/18/24 22:28 Temperature 97.0 F L 97.0 F L Temperature Source Temporal Pulse Rate 76 79 Respiratory Rate 18 18 Blood Pressure 157/73 H 157/67 H Blood Pressure Mean 101 97 Blood Pressure Source Monitor Blood Pressure Position Supine Blood Pressure Location Left Arm Pulse Ox 96 98 Oxygen Delivery Method Room Air Positive well nourished HEENT Reports moist mucous membranes normocephalic and atraumatic Nose: other Other Details: left lip droop Eyes General Eye ED: Yes normal appearance of both eyes Neck full ROM Chest Wall Chest: Negative for tenderness Resp normal respiratory effort and normal air movement Effort and Inspection: symmetric chest movement; Negative for respiratory distress Cardio regular rate, regular rhythm and no murmurs Peripheral Pulses: pulses 2+ throughout GI normal to inspection, nondistended, normoactive bowel sounds and non-tender Palpation: Negative for guarding or rebound tenderness present Extremity normal to inspection General Extremety ED: Negative for edema or tenderness General Extremity: Negative for edema Neuro Neuro Narrative: left arm drop to bed Sensorium / Orientation: awake MDM MDM MDM Narrative Medical decision making narrative: Interventions / MDM: Differential diagnosis: Acute CVA, left-sided neglect, large vessel occlusion Diagnosis considered but do not suspect: Intracranial hemorrhage however CT negative. My EKG interpretation: Sinus rate of 77, no ST or T wave changes PVCs noted. Imaging independently reviewed and interpreted by myself: CT brain: No acute process. CT angiogram head and neck: Acute right M1 proximal occlusion in discussion with radiologist. External documents reviewed: N/A Test considered but not ordered:N/A ED course: Patient evaluated on the gurney coming in, left lip droop of 1, left arm with dropped to the bed where he had 3, there was some dysarthria. Left- sided neglect. She is able to tell me her age of 79. Stroke team continued. Daughter present along with spouse. He is DNR CCA however they state they would be amenable to TNK if stroke concerns. Spouse stating ex- had stroke and this is similar. 1951: CT brain interpreted per myself read by radiology no acute process. 1955: Telestroke neurologist on the monitor evaluated patient does agree with stroke symptoms. She is in the window for TNK. Daughter who is present and works in neurosurgery understands all the risk and would like TNK. Risk benefits and alternatives discussed. TNK ordered. Awaiting results of CT angiogram head and neck. 2006: TNK was given. 2099: Clinically improving she is not neglecting her left side currently left leg is moving better slight drift of left arm. Discussed with radiology CT angiogram she has an acute right M1 proximal occlusion. Secondary to this she will need transfer to tertiary center. Daughter would like her transferred to [facility]. I will request through transfer line for transport. 2124: Patient continues to improve, however blood pressure 195/73 in the room. Per protocol Cardene drip will be started. 2129: [facility] currently 1 for month. I spoke with [facility] Transfer with neuro ICU Dr. Donald. Patient accepted under service Dr. Mckeon. Will await critical care transport flight. 2199: Called back to the room, patient now having left-sided deficits again. Left lip droop there is weakness left arm left leg. She is sent back to CT to rescan her brain. 2211: Review of CT brain myself no intracranial hemorrhage. [facility] crew was here and updated them on change. Awaiting final read. Images will be pushed up to [facility]. 2214: I also did call daughter Lindsey who was in the department, she was on her way up to [facility]. Discussed patient's recurrent and no clear bleed seen on my CT. Re-evaluation: stable Disposition discussed with patient/family/significant other: Patient and family Case discussed with consulting clinician: Telestroke neurologist, neuro ICU- [facility] This note was generated with [employer] dictation software. It may contain incorrect words, spelling, and punctuation that were not noted in checking the note before signing. Lab Data Attestation: I reviewed the patient's lab results. Labs: Laboratory Results - last 24 hr 12/18/24 19:25 WBC 7.7 RBC 3.65 L Hgb 10.9 L Hct 32.6 L MCV 89.3 MCH 29.9 MCHC 33.4 RDW Std Deviation 48.8 H RDW Coeff of Shon 14.8 H Plt Count 381 MPV 10.3 Immature Gran % (Auto) 0.400 Neut % (Auto) 65.2 Lymph % (Auto) 22.9 [place] % (Auto) 10.1 H Eos % (Auto) 1.0 Baso % (Auto) 0.4 Absolute Neuts (auto) 5.0 Absolute Lymphs (auto) 1.77 Nucleated RBC % 0 PT 12.5 INR 0.9 APTT 27.1 Sodium 142 Potassium 3.6 Chloride 107 Carbon Dioxide 23.5 Anion Gap 12 BUN 19 Creatinine 0.92 Estim Creat Clear Calc 10.65 L Est GFR (MDRD) Non-Af 63 BUN/Creatinine Ratio 21.0 H Glucose 147 H Calcium 9.1 Troponin T High Sens 15 H Radiography Diagnostic Testing: Clinical Impression(s) from Imaging Studies Brain CT 12/18/24 19:31 IMPRESSION: No acute intracranial abnormality; no acute infarct, intracranial hemorrhage or extra-axial collection. Chronic microvascular ischemia and involutional changes. [facility] 12/18/24 19:32 IMPRESSION: Abrupt cutoff with resultant occlusion of a short segmental right M1 MCA branch with distal reconstitution proximal to the M2. Scattered atherosclerotic calcification otherwise, without hemodynamically significant stenosis. Red Alert: Findings communicated with on 12/18/2024 at 9 p.m. Reading [facility] Brain CT 12/18/24 22:00 IMPRESSION: No acute intracranial abnormality. Chronic microvascular ischemia and involutional changes. Reading Location[facility] Critical Care Time Critical Care Time: Yes Critical care time (excluding procedures): 30-74 minutes, Discussing w/Patient &/or Family/Attending Radiologist, Discussing w/Consultants, Arranging Admission or Transfer, Performing Direct Patient Care at Bedside and - (40 minutes) Discharge Plan Triage Chief Complaint: Stroke Alert ED Provider: Lopez Benton Dx/Rx/DC Orders Clinical Impression: Acute cerebrovascular accident (CVA), Left-sided neglect, Cerebral artery occlusion, Dementia Prescriptions: No Action fluoxetine 40 mg capsule 60 mg PO DAILY Patient Comments: TAKE 1 CAPSULE BY MOUTH ONCE DAILY multivitamin [Multi-Vitamin] Tablet 1 tab PO DAILY buspirone 10 mg tablet 10 mg PO TID memantine 10 mg tablet 10 mg PO BID melatonin 10 mg capsule 10 mg PO QHS PRN (Reason: sleep) sennosides [Evac-U-Gen (sennosides)] 8.6 mg tablet 17.2 mg PO BID polyethylene glycol 3350 [ClearLax] 17 gram/dose powder 17 g PO DAILY trazodone 50 mg tablet 50 mg PO QHS gabapentin 100 mg capsule 100 mg PO TID PRN PRN (Reason: for pain) losartan 25 mg tablet 25 mg PO DAILY Primary Care Provider: Kerwin العراقي Referrals: Kerwin العراقي MD [Primary Care Provider] - Print Language: Azeri Disposition Disposition: DC/Tx to Another Type of HCF Discharge Location: [facility] Discharge Date/Time: 12/18/24 22:10 NIHSS NIHSS 1a. Level of Consciousness: 1 - Not alert; Arousable by minor stimuli to obey, answer & respond 1b. LOC Questions: 1 - Answers ONE question correctly 1c. LOC Commands: 0 - Performs BOTH tasks correctly 2. Best Gaze: 1 - Partial gaze palsy; 3. Visual: 0 - No visual loss 4. Facial Palsy: 1 - Minor paralysis (flattened nasolabial fold, asymmetry on smiling) 5a. Left Arm: 3 - No effort against gravity; arm falls 5b. Right Arm: 0 - No drift; arm holds 90 (or 45) degrees for full 10 seconds 6a. Left Le - No effort against gravity; leg falls to bed immediately 6b. Right Le - No drift; leg holds 30-degree position for full 5 seconds 7. Limb Ataxia: 0 - Absent 10. Dysarthria: 1 = [id number] dysarthria; 11. Extinction and Inattention: 0 - No abnormality Total: 11 Stroke Questions Stroke Team Activated: Yes Reviewed Inclusion/Exclusion criteria: Yes IV Thrombolytic Administered: Yes (at 2006) No contraindications from thrombolytic administration: Yes Informed the patient and/or family of all associated risks, benefits, & alternatives to IV Thrombolytic Therapy. Patient and/or family voluntarily consent to the administration of IV Thrombolytic Therapy: Yes
[2024-12-18 19:39] LABS: Absolute Lymphocyte Count 1.77 X10^3/uL (0.83-4.51); Basophil# 0.03 X10^3/uL; Basophil% 0.4 % (0-1); Eosinophil# 0.08 X10^3/uL; Hematocrit 32.6 % (37-47); Hemoglobin 10.9 g/dL (12.0-15.0); Lymphocyte # 1.77 X10^3/ul (0.83-4.51); Lymphocyte % 22.9 % (19-41); Mean Corp Hgb Conc 33.4 g/dL (32-36); Mean Corpuscular Hgb 29.9 pg (27.0-32.0); Mean Corpuscular Volume 89.3 fL (81-99); Mean Platelet Vol. 10.3 fl (6.2-12.0); Monocyte# 0.78 X10^3/uL; Monocyte% 10.1 % (0-10); NRBC Flagged by Analyzer 0 % (0-5); Neutrophil # 5.04 X10^3/uL (2.7-7.7); Neutrophil % 65.2 % (47-70); Platelet Count 381 K/mm3 (150-450); RBC Distribution Width CV 14.8 % (11.6-14.6); RBC Distribution Width SD 48.8 fl (35.1-43.9); Red Blood Count 3.65 M/mm3 (4.2-5.4); White Blood Count 7.7 K/mm3 (4.4-11.0)
[2024-12-18 19:51] LABS: International Normalized Ratio 0.9; Prothrombin Time (Protime)PT. 12.5 SECONDS (11.7-14.9)
[2024-12-18 19:52] LABS: Partial Thromboplast Time 27.1 Seconds (24.1-36.2)
[2024-12-18 20:07] LABS: Anion Gap 12 (5-15); BUN 19 mg/dL (4-19); Calcium,Total 9.1 mg/dL (7.6-11.0); Carbon Dioxide 23.5 mmol/L (21.0-32.0); Chloride 107 mmol/L (98-108); Creatinine, Serum 0.92 mg/dL (0.70-1.20); EST Glomerular Filtration Rate 63 (>60); Estimated Creatinine Clearance 10.65 ml/min (50-250); Glucose 147 mg/dL (70-99); Potassium 3.6 mmol/L (3.3-5.1); Sodium Level 142 mmol/L (133-145); Troponin T High Sensitivity 15 ng/L (<=14)
[2024-12-18] MEDS: TENECTEPLASE 2304 MG IV (20:07)
--- NOTE | 2024-12-18 20:52 | ED.RN ---
1944 [facility] made aware of pt being back from CT Scan. daughter and at the bedside.
[2024-12-18] MEDS: 0.9% Normal Saline (1000mL) 1,000 ML 100 ML IV (21:00)
[2024-12-18] MEDS: Nicardipine HCl-0.9% Sod Chlor 20 MG/200 ML IV.SOLN 50 MG CONT INF (21:26)
--- NOTE | 2024-12-18 22:00 | CT_ITS ---
PROCEDURE: BRAIN/HEAD WITHOUT CONTRAST 12/18/2024 REASON FOR EXAM: LEFT SIDE WEAKNESS TECHNIQUE: Head CT without intravenous contrast. Coronal and Sagittal reconstruction series were provided. One or more dose reduction techniques were used (e.g., Automated exposure control, adjustment of the mA and/or kV according to patient size, use of iterative reconstruction technique. COMPARISON: CT brain 12/18/2024 FINDINGS: No acute intracranial hemorrhage, mass, mass effect, midline shift or pathologic extra-axial fluid collection. Mild parenchymal atrophy with commensurate increase in CSF containing spaces. Patchy white matter hypodensities, patient demographics favor chronic microvascular ischemic changes. Paranasal sinuses and mastoid air cells are clear. The calvarium is grossly intact. CT/Brain/Head without Contrast IMPRESSION: No acute intracranial abnormality. Chronic microvascular ischemia and involutional changes. [facility]
--- NOTE | 2024-12-18 22:18 | ED.RN ---
pt remained Npo because of possible clot removal.
--- NOTE | 2024-12-18 22:30 | ED.RN ---
2210 report given at [facility].
== END 2024-12-18 22:10 | disposition other institution (70) ==
PROVIDERS: Emergency Provider Emergency Medicine; PCP Family Medicine; Visit Provider Emergency Medicine
DX: I63.50 Cerebral infarction due to unspecified occlusion or stenosis of unspecified cerebral artery (principal); F03.90 Unspecified dementia, unspecified severity, without behavioral disturbance, psychotic disturbance, mood disturbance, and anxiety; E78.5 Hyperlipidemia, unspecified
CPT/HCPCS: 70450; 70496; 70498; 80048; 84484; 85025; 85610; 85730; 93005; 99285; J3101; Q9967; A4216

== ENCOUNTER 2025-01-24 16:01 | Emergency (ER) | payer MEDICARE, SELFPAY ==
[2025-01-24] VITALS (8 sets, daily range): BP systolic 160–188; BP diastolic 71–89; PULSE 71–128; RESP 16–18; TEMP 36.8–37; O2SAT 94–98; BMI 22.0
--- NOTE | 2025-01-24 16:03 | EKG12_ITS ---
Test Reason : STROKE TEAM Blood Pressure : */* mmHG Vent. Rate : 63 BPM Atrial Rate : 63 BPM P-R Int : 164 ms QRS Dur : 84 ms QT Int : 462 ms P-R-T Axes : 50 16 101 degrees QTcB Int : 472 ms Normal sinus rhythm Nonspecific ST and T wave abnormality Abnormal ECG Confirmed by ITALIA RICH, LI ([id number]), medical transcription editor PREETHI RINALDI ([id number]) on 01/25/2025 10:52:33 AM Referred By: Confirmed By: LI ECHAVARRIA MD
--- NOTE | 2025-01-24 16:04 | EDS_ITS ---
HPI History of Present Illness Chief Complaint: Stroke Alert Informant: patient, family and EMS Onset/Context/Timing Onset: Today Context: Sudden Onset Quality and Location: Positive for Left Facial Droop, Left Arm Weakness and Left Leg Weakness Onset: Last known well was approximately 3 PM today. Worsened by: Nothing Relieved by: Nothing Associated Symptoms Associated Symptoms: Negative for Headache, Nausea, Vomiting or Chest Pain Narrative Narrative: Patient presents with left-sided weakness that began today. Family states last known well was approximately 3 PM today. EMS reports patient was having difficulty moving her left side. Patient is confused on the year. Patient states it is 2021. Patient denies any difficulty breathing or difficulty swallowing. Patient denies any chest pain or shortness of breath. Patient denies any nausea or vomiting. Patient denies any headaches. Patient had a prior stroke in December of this year and received thrombolytic therapy at that time. Patient is supposed to be on aspirin but has not been taking it. 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 Depression Inflammatory bowel disease Anxiety Home Medications ?Medication ?Instructions ?Recorded ?Last Taken ?Type fluoxetine 40 mg capsule 60 mg PO DAILY 10/17/21 Unkn own History multivitamin 1 tab PO DAILY 10/17/21 Unkn own History buspirone 10 mg tablet 10 mg PO TID 02/28/24 Unknow n History melatonin 10 mg capsule 10 mg PO QHS PRN sleep 02/27 Unknown History memantine 10 mg tablet 10 mg PO BID 02/28/24 Unknow n History polyethylene glycol 3350 17 17 g PO DAILY 03/08/24 Unk nown History gram/dose oral powder (ClearLax) sennosides 8.6 mg tablet 17.2 mg PO BID 03/08/24 Unkn own History (Evac-U-Gen (sennosides)) gabapentin 100 mg capsule 100 mg PO TID PRN PRN for pa in 12/18/24 Unknown History losartan 25 mg tablet 25 mg PO DAILY 12/18/24 Unkn own History trazodone 50 mg tablet 50 mg PO QHS 12/18/24 Unknow n History Allergy/AdvReac Type Severity Reaction Status Date / Time No Known Allergies Allergy Verified 12/18/24 19:34 Social History household members: spouse housing: house Smoking Status: Never smoker ROS ROS ED Constitutional Constitutional ED: Denies chills or fever(s) Eyes Eyes: Denies blurry vision or change in vision Cardiovascular Cardiovascular: Denies chest pain or palpitations Respiratory/Chest Respiratory/Chest: Denies cough or dyspnea Gastrointestinal Gastrointestinal: Denies nausea or vomiting Neurologic Neurologic: Reports weakness; Denies headache(s) EXAM Physical Exam Const Vital Signs: 01/24/25 16:02 01/24/25 16:15 01/24/25 16:15 Temperature 98.3 F Temperature Source Oral Pulse Rate 74 128 H Respiratory Rate 16 16 Blood Pressure 162/80 H 170/74 H Blood Pressure Mean 107 106 Pulse Ox 94 98 98 Oxygen Delivery Method Room Air Room Air Room Air 01/24/25 17:02 01/24/25 17:12 01/24/25 17:30 Temperature 98.6 F Temperature Source Pulse Rate 80 80 77 Respiratory Rate 16 16 18 Blood Pressure 165/89 H 165/89 H 160/80 H Blood Pressure Mean 114 114 106 Pulse Ox 96 96 98 Oxygen Delivery Method 01/24/25 18:00 01/24/25 19:00 01/24/25 19:27 Temperature 98.2 F Temperature Source Pulse Rate 77 71 72 Respiratory Rate 18 18 18 Blood Pressure 184/80 H 176/73 H 188/71 H Blood Pressure Mean 114 107 110 Pulse Ox 98 95 96 Oxygen Delivery Method Room Air Positive well nourished and well developed General Appearance ED: well developed and NAD HEENT Reports moist mucous membranes Neck supple and no JVD Resp normal respiratory effort and clear to auscultation bilaterally GI soft to palpation, non-tender and non-distended Neuro oriented x3, CN's II-XII intact bilaterally and no sensory deficits noted Sondheimer Coma Scale: document GCS findings Spontaneous Obeys Commands Oriented 15 Sensorium / Orientation: alert Speech: speech normal Motor Exam: strength 5/5 throughout Psych mental status grossly normal MDM MDM MDM Narrative Medical decision making narrative: Prehospital stroke alert was called. Stroke alert order set was used. Stat CT scan of the brain will be obtained to assess for intracranial bleeding and stroke. CTA of the head and neck will be obtained to assess for large vessel occlusion and carotid stenosis. Chest x-ray will be obtained to assess for pneumonia and bronchitis. EKG will be obtained to assess for cardiac dysrhythmia and cardiac ischemia. CBC will be obtained to assess for leukocytosis and anemia. Basic metabolic profile will be obtained to assess for electrolyte abnormality and renal function. PT with INR PTT will be obtained to assess for coagulopathy. High-sensitivity troponin will be obtained cardiac ischemia. 2-hour repeat high-sensitivity troponin will be obtained to assess for ongoing cardiac ischemia. History & Record Review Additional record(s) reviewed:: Prior ED visit and Prior labs Lab Data Attestation: I reviewed the patient's lab results. Lab results narrative: CBC was reviewed. There is anemia with a hemoglobin of 9.2 and hematocrit of 28.6. This is slightly decreased from previous result. Basic metabolic profile was reviewed and was essentially within normal limits. PT with INR and PTT were reviewed and were within normal limits. Initial high-sensitivity troponin was reviewed and was normal at 11. 2-hour repeat high-sensitivity troponin was reviewed and was 16. Labs: Laboratory Results - last 24 hr 01/24/25 01/24/25 01/24/25 16:15 16:46 18:19 WBC 6.7 RBC 3.13 L Hgb 9.2 L Hct 28.6 L MCV 91.4 MCH 29.4 MCHC 32.2 RDW Std Deviation 51.6 H RDW Coeff of Shon 15.4 H Plt Count 405 MPV 9.8 Immature Gran % (Auto) 0.300 Neut % (Auto) 64.8 Lymph % (Auto) 21.6 [place] % (Auto) 8.6 Eos % (Auto) 3.6 Baso % (Auto) 1.1 H Absolute Neuts (auto) 4.3 Absolute Lymphs (auto) 1.44 Nucleated RBC % 0 PT Cancelled 13.1 INR Cancelled 1.0 APTT Cancelled 29.8 Sodium 136 Potassium 3.8 Chloride 100 Carbon Dioxide 27.4 Anion Gap 8 BUN 13 Creatinine 0.68 L Estim Creat Clear Calc 53.38 Est GFR (MDRD) Non-Af 89 BUN/Creatinine Ratio 18.6 Glucose 118 H Calcium 8.5 Troponin T High Sens 11 D Troponin T Hi Sens 2 Hr 16 H Radiography Diagnostic Testing: Clinical Impression(s) from Imaging Studies Head/Neck CTA 01/24/25 16:04 IMPRESSION: No acute arterial abnormality of the head or neck. Reading Location: [id number] Brain [address] 01/24/25 16:06 IMPRESSION: 1. No evidence of acute intracranial pathology. 2. Cerebral atrophy. 3. Other findings as noted. Reading Location: [facility] Chest X-Ray 01/24/25 16:35 IMPRESSION: No focal consolidations. Mild pulmonary vascular congestion. No pleural effusion or pneumothorax. Small hiatal hernia. Reading Location: [facility] CT scan of the brain was obtained. There is no acute intracranial abnormality. There is some cerebral atrophy. This was interpreted by the radiologist and was also independently reviewed by myself. CTA of the head and neck was obtained. There is no acute abnormality noted. There is no large vessel occlusion or carotid stenosis. This was interpreted by the radiologist and was also independently reviewed by myself. Portable 1 view chest x-ray was obtained. On my independent interpretation, lung boyer show mild pulmonary vascular congestion. There is normal cardiac silhouette. Bony thorax is normal. There is no acute process noted. Radiologist also interpreted the x-ray and agrees. EKG Initial EKG: Attestation: I personally reviewed and interpreted this EKG as follows: Interpretation: Sinus Rhythm (63) and Non-Specific ST Changes Comments: EKG was obtained. On my independent interpretation, it showed a normal sinus rhythm with a rate of 63. OH interval, QRS interval, and QTc intervals were all normal. [place] was normal. There are nonspecific ST-T wave changes. Prior EKG tracings: available for review Prior: Unchanged (12/18/2024) Management Discussion w/another healthcare provider: Hospitalist and Handmade Tile Artist Treatment and Re-Evaluation Narrative: Stroke alert was called prehospital. Upon arrival, patient had a NIH stroke scale of 2 because of confusion on the year and slight left facial weakness. However, on further evaluation, patient was noted to have dementia and this confusion is chronic. Further NIH stroke scales have been 0. Patient and family were advised that this is most likely TIA. The reports that the patient supposed to be on aspirin but he thought that the patient's prescription for aspirin ran out and she has not been taking it. I talked to the daughter on the phone who states that the patient was not started on dual antiplatelet therapy because she falls frequently. Because of the rapidly improving symptoms and low NIH stroke scale, patient is not a candidate for tenecteplase. Case was discussed with [facility] stroke neurologist. He felt the patient could stay here and have further stroke workup. He recommends starting the patient back on aspirin. This was ordered. Case was discussed with the hospitalist. Hospitalist evaluated patient. He does not feel the patient necessarily needs to be admitte d to the hospital since patient had a full stroke workup 1 month ago after the patient received tenecteplase for an acute stroke. Patient and spouse are agreeable with this. They would prefer to go home. Patient is followed for instructed to restart taking aspirin daily. Patient and spouse were instructed to follow-up with the patient's primary care physician in 3 to 5 days. Patient and spouse understood and were agreeable with the plan. All questions were answered. Discharge Plan Triage Chief Complaint: Stroke Alert ED Provider: Mir Galindo Dx/Rx/DC Orders Clinical Impression: TIA (transient ischemic attack), History of stroke, Dementia Instructions: ED TIA: Transient Ischemic Attack Prescriptions: No Action fluoxetine 40 mg capsule 60 mg PO DAILY Patient Comments: TAKE 1 CAPSULE BY MOUTH ONCE DAILY multivitamin [Multi-Vitamin] Tablet 1 tab PO DAILY buspirone 10 mg tablet 10 mg PO TID memantine 10 mg tablet 10 mg PO BID melatonin 10 mg capsule 10 mg PO QHS PRN (Reason: sleep) sennosides [Evac-U-Gen (sennosides)] 8.6 mg tablet 17.2 mg PO BID polyethylene glycol 3350 [ClearLax] 17 gram/dose powder 17 g PO DAILY trazodone 50 mg tablet 50 mg PO QHS gabapentin 100 mg capsule 100 mg PO TID PRN PRN (Reason: for pain) losartan 25 mg tablet 25 mg PO DAILY Primary Care Provider: Kerwin العراقي Referrals: Kerwin العراقي MD [Primary Care Provider] - 3-5 Days Print Language: [place] Disposition Disposition: Home, Self Care NIHSS NIHSS 1a. Level of Consciousness: 0 - Alert; keenly responsive 1b. LOC Questions: 1 - Answers ONE question correctly 2. Best Gaze: 0 - Normal 4. Facial Palsy: 1 - Minor paralysis (flattened nasolabial fold, asymmetry on smiling) 5a. Left Arm: 0 - No drift; arm holds 90 (or 45) degrees for full 10 seconds 5b. Right Arm: 0 - No drift; arm holds 90 (or 45) degrees for full 10 seconds 6a. Left Le - No drift; leg holds 30-degree position for full 5 seconds 6b. Right Le - No drift; leg holds 30-degree position for full 5 seconds 8. Sensory: 0 - Normal; no sensory loss 9. Best Language: 0 - No aphasia; normal 10. Dysarthria: 0 - Normal 11. Extinction and Inattention: 0 - No abnormality Total: 2 Stroke Questions Stroke Team Activated: Yes Reviewed Inclusion/Exclusion criteria: Yes Was Patient considered for Endovascular Intervention?: No IV Thrombolytic Administered: No
--- NOTE | 2025-01-24 16:04 | CT_ITS ---
PROCEDURE: STROKE CTA HEAD AND NECK W/CON 01/24/2025 REASON FOR EXAM: NEURO DEFICIT, ACUTE, STROKE SUSPECTED TECHNIQUE: STROKE CTA HEAD AND NECK W/CON Multiplanar Sagittal and Coronal images were obtained. CONTRAST: Isovue 370 VOLUME: 75 mL One or more dose reduction techniques were used (e.g., Automated exposure control, adjustment of the mA and/or kV according to patient size, use of iterative reconstruction technique). RADIATION DOSE SUMMARY: CTDlvol: 16.61+ 15.59 mGy DLP: 514.38 mGycm COMPARISON: 12/18/2024 CTA. FINDINGS: Atherosclerosis of the aortic arch without significant stenosis. The common carotid arteries are patent without evidence of stenosis or injury. Atherosclerosis of the bilateral proximal internal carotid arteries without hemodynamically significant stenosis. The left cervical vertebral artery is slightly dominant when compared to the right. The bilateral cervical vertebral arteries are patent without evidence of stenosis or injury. Atherosclerosis of the carotid siphons without hemodynamically significant stenosis. The anterior cerebral, anterior communicating, middle cerebral, and posterior cerebral arteries are patent without evidence of stenosis or injury. The [id number] is intact. No significant aneurysm. The vertebrobasilar system is patent. Improved circulation of the M1 segment of the right MCA. The lung apices are clear. CT/STROKE CTA Head AND Neck W/Con IMPRESSION: No acute arterial abnormality of the head or neck. Reading Location: [place] [id number]
--- NOTE | 2025-01-24 16:06 | CT_ITS ---
PROCEDURE: STROKE BRAIN/HEAD WITHOUT CONT 01/24/2025 REASON FOR EXAM: NEURO DEFICIT, ACUTE, STROKE SUSPECTED TECHNIQUE: STROKE BRAIN/HEAD WITHOUT CONT Coronal and Sagittal reconstruction series were provided. One or more dose reduction techniques were used (e.g., Automated exposure control, adjustment of the mA and/or kV according to patient size, use of iterative reconstruction technique. RADIATION DOSE SUMMARY: CTDlvol: 44.99 mGy DLP: 745.49 mGycm COMPARISON: CT head without contrast, 12/18/2024. FINDINGS: There is moderate diffuse cerebral atrophy with concomitant ventriculomegaly. There are chronic cortical infarctions in both basal ganglia and in the periventricular white matter of both frontal lobes. There is no evidence of acute intracranial hemorrhage or infarction. There are no abnormal intracranial masses or mass effects. The ventricular system and basilar cisterns are unremarkable. There is calcific vascular disease of the intracranial portion of both internal carotid arteries in the left vertebral artery. The skull base and calvarium are normal. There is right carlos eduardo bullosa with mild nasal septal deviation to the left. The paranasal sinuses and mastoid air cells are unremarkable. There are bilateral scleral lu. The intraorbital contents are otherwise unremarkable. The visualized extracranial soft tissues are normal. CT/STROKE Brain/Head without Cont IMPRESSION: 1. No evidence of acute intracranial pathology. 2. Cerebral atrophy. 3. Other findings as noted. Reading Location: [id number]
--- NOTE | 2025-01-24 16:35 | RAD_ITS ---
PROCEDURE: CHEST 1 VIEW 01/24/2025 REASON FOR EXAM: NEURO DEFICIT, ACUTE, STROKE SUSPECTED TECHNIQUE: Frontal view of the chest. COMPARISON: None FINDINGS: No focal consolidations. Mild pulmonary vascular congestion. No pleural effusion or pneumothorax. Heart is borderline enlarged in size. Calcified aortic arch. Small hiatal hernia. RAD/Chest 1 View IMPRESSION: No focal consolidations. Mild pulmonary vascular congestion. No pleural effusi on or pneumothorax. Small hiatal hernia. Reading Location: [id number]
[2025-01-24 16:48] LABS: Absolute Lymphocyte Count 1.44 X10^3/uL (0.83-4.51); Absolute Neutrophil Count 4.3 X10^3/uL (2.0-7.7); Basophil# 0.07 X10^3/uL; Basophil% 1.1 % (0-1); Eosinophil# 0.24 X10^3/uL; Eosinophils% 3.6 % (0-5); Hematocrit 28.6 % (37-47); Hemoglobin 9.2 g/dL (12.0-15.0); Lymphocyte # 1.44 X10^3/ul (0.83-4.51); Lymphocyte % 21.6 % (19-41); Mean Corp Hgb Conc 32.2 g/dL (32-36); Mean Corpuscular Hgb 29.4 pg (27.0-32.0); Mean Corpuscular Volume 91.4 fL (81-99); Mean Platelet Vol. 9.8 fl (6.2-12.0); Monocyte# 0.57 X10^3/uL; Monocyte% 8.6 % (0-10); NRBC Flagged by Analyzer 0 % (0-5); Neutrophil # 4.32 X10^3/uL (2.7-7.7); Neutrophil % 64.8 % (47-70); Platelet Count 405 K/mm3 (150-450); RBC Distribution Width CV 15.4 % (11.6-14.6); RBC Distribution Width SD 51.6 fl (35.1-43.9); Red Blood Count 3.13 M/mm3 (4.2-5.4); White Blood Count 6.7 K/mm3 (4.4-11.0)
[2025-01-24 16:55] LABS: Anion Gap 8 (5-15); BUN 13 mg/dL (4-19); BUN/Creat Ratio 18.6 RATIO (10-20); Calcium,Total 8.5 mg/dL (7.6-11.0); Carbon Dioxide 27.4 mmol/L (21.0-32.0); Chloride 100 mmol/L (98-108); Creatinine, Serum 0.68 mg/dL (0.70-1.20); EST Glomerular Filtration Rate 89 (>60); Estimated Creatinine Clearance 53.38 ml/min (50-250); Glucose 118 mg/dL (70-99); Potassium 3.8 mmol/L (3.3-5.1); Sodium Level 136 mmol/L (133-145)
[2025-01-24] MEDS: Aspirin 325 MG Tablet PO (17:04)
[2025-01-24 17:06] LABS: Troponin T High Sensitivity 11 ng/L (<=14)
[2025-01-24 17:16] LABS: Prothrombin Time (Protime)PT. 13.1 SECONDS (11.7-14.9)
[2025-01-24 17:17] LABS: Partial Thromboplast Time 29.8 Seconds (24.1-36.2)
[2025-01-24 19:12] LABS: Troponin T High Sens 2 HR 16 ng/L (<=14)
--- NOTE | 2025-01-24 20:44 | CM.ED ---
Social Work Reason for visit: Stroke Alert SW met with patients while patient was getting testing completed. Patients stated they had been through this before and he was trying not to worry too much. Emotional support provided. No further needs at this time. Tonya Booker, FELT HAT POUNCING OPERATOR HAND, DROPHAMMER OPERATOR
== END 2025-01-24 19:31 | disposition home or self-care (01) ==
PROVIDERS: Emergency Provider Emergency Medicine; PCP Family Medicine; Visit Provider Emergency Medicine
DX: G45.9 Transient cerebral ischemic attack, unspecified (principal); F03.90 Unspecified dementia, unspecified severity, without behavioral disturbance, psychotic disturbance, mood disturbance, and anxiety; R29.6 Repeated falls; Z86.73 Personal history of transient ischemic attack (TIA), and cerebral infarction without residual deficits; Z79.82 Long term (current) use of aspirin; Z79.899 Other long term (current) drug therapy
CPT/HCPCS: 70450; 70496; 70498; 71045; 80048; 84484; 85025; 85610; 85730; 93005; 99285; Q9967; A4216

== ENCOUNTER 2025-02-24 09:27 | Inpatient (IN) | payer MEDICARE, SELFPAY ==
[2025-02-24] VITALS (10 sets, daily range): BP systolic 152–197; BP diastolic 76–92; PULSE 73–85; RESP 14–22; TEMP 36.3–37; O2SAT 94–98; BMI 20.5
--- NOTE | 2025-02-24 09:45 | EX.ED.DYSGE1 ---
HPI History of Present Illness Chief Complaint: Neuro S/Sx Narrative Narrative: Patient is a 79-year-old female with past medical history of dementia, hyperlipidemia, anxiety, IBS, depression who presented to the emergency department with concern for left-sided facial droop, left arm weakness. According to the who provides history of present illness secondary to her dementia he states that few days ago he noted that she had some left-sided facial droop. He states that yesterday she had blood work obtained around 9:00 in the morning and noted that she had some weakness in her left arm as well that had progressively worsened into today therefore they had her sent here for further evaluation and management. They deny blood thinning medications denies any falls. was also inquiring about likely placement into a facility as he states that he cannot care for her anymore at home. 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 Depression Inflammatory bowel disease Anxiety Home Medications ?Medication ?Instructions ?Recorded ?Last Taken ?Type fluoxetine 40 mg capsule 60 mg PO DAILY 10/17/21 Unknown History multivitamin 1 tab PO DAILY 10/17/21 Unknown History buspirone 10 mg tablet 10 mg PO TID 02/28/24 Unknown History melatonin 10 mg capsule 10 mg PO QHS PRN sleep 02/28/24 Unknown History memantine 10 mg tablet 10 mg PO BID 02/28/24 Unknown History polyethylene glycol 3350 17 17 g PO DAILY 03/08/24 Unknown History gram/dose oral powder (ClearLax) sennosides 8.6 mg tablet 17.2 mg PO BID 03/08/24 Unknown History (Evac-U-Gen (sennosides)) gabapentin 100 mg capsule 100 mg PO TID PRN PRN for pain 12/18/24 Unknown History losartan 25 mg tablet 25 mg PO DAILY 12/18/24 Unknown History trazodone 50 mg tablet 50 mg PO QHS 12/18/24 Unknown History Allergy/AdvReac Type Severity Reaction Status Date / Time No Known Allergies Allergy Verified 02/24/25 09:29 Social History household members: spouse housing: house Smoking Status: Never smoker ROS ROS ED ROS Narrative Constitutional: Denies headache Eyes: Denies double vision blurry vision Cardiovascular: Denies chest pain Respiratory: Denies shortness of breath Abdomen: Denies nausea vomit diarrhea Neurological: Complains of left-sided facial droop left arm weakness as noted above Musculoskeletal: Denies back pain Skin: Denies any rashes or lesions EXAM Physical Exam Narrative Exam Narrative: General: Patient lying in bed rest comfortably did not appear to be in acute distress Head: Atraumatic, normocephalic Eyes: PERRL bilaterally, EOMI bilaterally, no conjunctival injection noted Neck: Soft, supple, trachea midline Cardiovascular: Regular rate and rhythm Respiratory: Clear to auscultation bilaterally Extremities: +2/5 strength noted in the left upper extremity and the left lower extremity, +4/5 strength noted in the right upper and lower extremity Neurological: Patient is following commands knew that she was at a hospital she knew that it was 2024 she was confused and thought it was spring. She was able to tell me there was a clock on the wall. Patient does have significant left arm weakness as well as left-sided facial droop. Patient has left lower extremity weakness more on the left when compared to the right although both are weak Skin: Warm, dry, intact no rashes or lesions noted Const Vital Signs: 02/24/25 09:29 02/24/25 09:44 02/24/25 09:44 Temperature 98.0 F Temperature Source Oral Pulse Rate 85 78 Respiratory Rate 22 H 21 H Blood Pressure 152/85 H 154/77 H Blood Pressure Mean 107 102 Pulse Ox 95 95 Oxygen Delivery Method Room Air Room Air Room Air 02/24/25 10:08 02/24/25 11:27 Temperature Temperature Source Pulse Rate 77 73 Respiratory Rate 16 18 Blood Pressure 165/80 H 152/92 H Blood Pressure Mean 108 112 Pulse Ox 97 98 Oxygen Delivery Method Room Air MDM MDM MDM Narrative Medical decision making narrative: Patient is a 79-year-old female who presented to the emergency department for concern for left-sided facial droop and left arm weakness. On the differential diagnosis includes but limited to intracranial hemorrhage, ischemic stroke, hypoglycemia, electrolyte abnormality. Once workup is obtained and reviewed she will be reevaluated. Patient is not a tenecteplase candidate as her symptoms started a few days ago. Patient is also not an LVO candidate as once again her symptoms started more than 24 hours ago. Patient's CBC was reviewed and showed no evidence leukocytosis white blood count 10.1, hemoglobin 1.4, plate count of 406. Patient INR normal at 1, PT of 12.8. Patient sodium was 140, potassium was noted to be normal at 3.4, creatinine 0.63. Patient's troponin was 20 EKG reviewed showed sinus rhythm with a rate of [address] changes noted in V2 and V3. When compared to EKG from January 24, 2025 this was largely unchanged. Patient's aihsb-tz-axzk glucose was 113. Patient CT head and brain without contrast showed small vessel ischemic/degenerative changes no acute intracranial hemorrhage midline shift or mass effect recommending MRI if symptoms persist. Patient CTA head and neck reviewed and showed high-grade stenosis in the proximal M1 horizontal component of the right middle cerebral measuring 0.5 cm in length. I reached out to [facility] teleneurology to discuss this given her symptoms have progressively worsened despite them starting in a few days ago to see if they would suggest intervention or not. I originally spoke with Dr. Sinclair after she was done evaluating my other patient and she is requesting I go through the transfer line so she could see the image to further evaluate. During this time Dr. Lemos called back and I had further discussion with him and he states that he would recommend transfer down to [facility] for further evaluation given that she has progressively worsened despite her symptoms starting a few days ago and unclear last known well. He was recommending aspirin loaded with Plavix as well. Dr. Sinclair also called back again and I discussed with her the case again as well and she also would recommend transfer down in case she needs emergent stenting if she still continues to progressively worsen I notified her that the family at bedside is still refusing transfer. She told me that they will not plan on seeing the patient tomorrow then unless the hospitalist put a formal consult in we will notify the hospitalist of this as well. I went back in to update the family/significant other and the daughter had arrived who is a nurse practitioner and the neurology unit and I notified them that the recommendation was transfer to [facility] and she is refusing this she states that she does not want intervention at this point in time she states that she does not want Plavix load either. She states that she wants the patient placed into a nursing facility. At this point time will discuss case with hospitalist for admission. Discussed case with hospitalist Dr. Whitfield who accept patient for admission. Patient notified as well as for members all question concerns answered. Lab Data Labs: Laboratory Results - last 24 hr 02/24/25 02/24/25 09:35 09:39 WBC 10.1 RBC 3.92 L Hgb 11.4 L Hct 34.4 L MCV 87.8 MCH 29.1 MCHC 33.1 RDW Std Deviation 46.4 H RDW Coeff of Shon 14.4 Plt Count 406 MPV 10.2 Immature Gran % (Auto) 0.300 Neut % (Auto) 77.1 H Lymph % (Auto) 14.0 L Ransom % (Auto) 7.6 Eos % (Auto) 0.4 Baso % (Auto) 0.6 Absolute Neuts (auto) 7.8 H Absolute Lymphs (auto) 1.42 Nucleated RBC % 0 PT 12.8 INR 1.0 APTT 28.7 Sodium 140 Potassium 3.4 Chloride 103 Carbon Dioxide 22.6 Anion Gap 14 BUN 9 Creatinine 0.63 L Estim Creat Clear Calc 51.76 Est GFR (MDRD) Non-Af 90 BUN/Creatinine Ratio 14.9 Glucose 116 H Calcium 9.5 Troponin T High Sens 20 H D POC Glucose 113 H Radiography Diagnostic Testing: Clinical Impression(s) from Imaging Studies Brain CT 02/24/25 10:15 IMPRESSION: 1. Small vessel ischemic/degenerative changes. 2. No acute intracranial hemorrhage, midline shift or mass effect. If symptoms persist, further evaluation with MRI is recommended. Red Alert: No acute intracranial hemorrhage. The critical information above was relayed directly by me by telephone to Jared Jaramillo on 02/24/2025 at 10:37 am with readback verification. Reading Location: [facility] Head/Neck CTA 02/24/25 10:15 IMPRESSION: There is a high-grade stenosis in the proximal M1 horizontal component of the right middle cerebral, measuring 0.5 cm in length, axial image [id number]. Critical results were discussed with Dr. Jaramillo by Dr. Reddy at the time of dictation. Reading Location: [facility] Discharge Plan Triage Chief Complaint: Neuro S/Sx ED Provider: Jared Jaramillo Dx/Rx/DC Orders Clinical Impression: Stroke, Left leg weakness, Left arm weakness, Facial droop, History of dementia Prescriptions: No Action fluoxetine 40 mg capsule 60 mg PO DAILY Patient Comments: TAKE 1 CAPSULE BY MOUTH ONCE DAILY multivitamin [Multi-Vitamin] Tablet 1 tab PO DAILY buspirone 10 mg tablet 10 mg PO TID memantine 10 mg tablet 10 mg PO BID melatonin 10 mg capsule 10 mg PO QHS PRN (Reason: sleep) sennosides [Evac-U-Gen (sennosides)] 8.6 mg tablet 17.2 mg PO BID polyethylene glycol 3350 [ClearLax] 17 gram/dose powder 17 g PO DAILY trazodone 50 mg tablet 50 mg PO QHS gabapentin 100 mg capsule 100 mg PO TID PRN PRN (Reason: for pain) losartan 25 mg tablet 25 mg PO DAILY Primary Care Provider: Kerwin العراقي Referrals: Kerwin العراقي MD [Primary Care Provider] - Print Language: Wallisian Disposition Disposition: Acute Care Hospital [facility]
--- NOTE | 2025-02-24 10:15 | CT_ITS ---
EXAM: CT Head Without Intravenous Contrast CLINICAL INDICATION: NEURO DEFICIT, ACUTE, STROKE SUSPECTED TECHNIQUE: Axial computed tomography images of the head/brain without intravenous contrast. This CT exam was performed using one or more of the following dose reduction techniques: automated exposure control, adjustment of the mA and/or kV according to patient size, and/or use of iterative reconstruction technique. 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 Areas of decreased attenuation in the deep cerebral white matter are consistent with small vessel ischemic/degenerative changes. No acute intracranial hemorrhage, midline shift or mass effect. If symptoms persist, further evaluation with MRI is recommended. BONES/JOINTS: Unremarkable. No acute fracture. SOFT TISSUES: Unremarkable. SINUSES: Unremarkable as visualized. No acute sinusitis. MASTOID AIR CELLS: Unremarkable as visualized. No mastoid effusion. CT/STROKE Brain/Head without Cont IMPRESSION: 1. Small vessel ischemic/degenerative changes. 2. No acute intracranial hemorrhage, midline shift or mass effect. If symptoms persist, further evaluation with MRI is recommended. Red Alert: No acute intracranial hemorrhage. The critical information above was relayed directly by me by telephone to Jared York on 02/24/2025 at 10:37 am with readback verification. Reading Location: [facility]
--- NOTE | 2025-02-24 10:15 | CT_ITS ---
PROCEDURE: STROKE CTA HEAD AND NECK W/CON 02/24/2025 REASON FOR EXAM: NEURO DEFICIT, ACUTE, STROKE SUSPECTED TECHNIQUE: STROKE CTA HEAD AND NECK W/CON Multiplanar Sagittal and Coronal images were obtained. CONTRAST: 100 cc Isovue 370 One or more dose reduction techniques were used (e.g., Automated exposure control, adjustment of the mA and/or kV according to patient size, use of iterative reconstruction technique). RADIATION DOSE SUMMARY: DLP: 1199 mGycm COMPARISON: None FINDINGS: Aortic Arch: Patent Brachiocephalic and Subclavians: Patent RIGHT Carotid: Right CCA: Patent, plaque is noted Right ICA: Patent Maximum stenosis (NASCET): 0 % Right ECA: Patent LEFT Carotid: Left CCA: Patent, plaque is noted Left ICA: Patent Maximum stenosis (NASCET): 0 % Left ECA: Patent Vertebrals: Patent RIGHT Vertebral: Patent LEFT Vertebral: Patent Anatomy: Patent, plaque is noted in the carotid siphons Aneurysm or avm: None Anterior cerebral arteries: Patent Middle cerebral arteries: The left middle cerebral is widely patent. There is a high-grade stenosis in the proximal M1 horizontal component of the right middle cerebral, measuring 0.5 cm in length, axial image [id number]. Basilar artery: Patent Posterior cerebral arteries: Patent Other major branches of the posterior circulation: Patent Major venous structures: Patent Other findings: Neck: Unremarkable lungs: Clear bones: There is no acute bony abnormality. CT/STROKE CTA Head AND Neck W/Con IMPRESSION: There is a high-grade stenosis in the proximal M1 horizontal component of the r ight middle cerebral, measuring 0.5 cm in length, axial image [id number]. Critical results were discussed with Dr. Jaramillo by Dr. Reddy at the time o f dictation. Reading Location: [facility]
[2025-02-24 10:19] LABS: Hematocrit 34.4 % (37-47); Hemoglobin 11.4 g/dL (12.0-15.0); Immature Granulocytes Count 0.030 X10^3/uL (0.0-0.0); Mean Corp Hgb Conc 33.1 g/dL (32-36); Mean Corpuscular Volume 87.8 fL (81-99); Mean Platelet Vol. 10.2 fl (6.2-12.0); NRBC Flagged by Analyzer 0 % (0-5); Platelet Count 406 K/mm3 (150-450); RBC Distribution Width CV 14.4 % (11.6-14.6); RBC Distribution Width SD 46.4 fl (35.1-43.9); Red Blood Count 3.92 M/mm3 (4.2-5.4); White Blood Count 10.1 K/mm3 (4.4-11.0)
[2025-02-24 10:24] LABS: Prothrombin Time (Protime)PT. 12.8 SECONDS (11.7-14.9)
[2025-02-24 10:25] LABS: Partial Thromboplast Time 28.7 Seconds (24.1-36.2)
[2025-02-24 10:30] LABS: Anion Gap 14 (5-15); BUN 9 mg/dL (4-19); BUN/Creat Ratio 14.9 RATIO (10-20); Calcium,Total 9.5 mg/dL (7.6-11.0); Carbon Dioxide 22.6 mmol/L (21.0-32.0); Chloride 103 mmol/L (98-108); Estimated Creatinine Clearance 51.76 ml/min (50-250); Glucose 116 mg/dL (70-99); Potassium 3.4 mmol/L (3.3-5.1); Troponin T High Sensitivity 20 ng/L (<=14)
[2025-02-24] MEDS: 0.9% Normal Saline (1000mL) 1,000 ML 999 ML IV (11:27)
--- NOTE | 2025-02-24 11:53 | PCA ---
CALLED [facility] AND CANCELLED THE TRANSFER
--- NOTE | 2025-02-24 12:25 | ECHOD_ITS ---
Reason For Study Reason For Study: TIA/STROKE Procedure This was a 2D Doppler, Color Flow transthoracic echocardiogram. Exam performed portable in patient room. Left Ventricle Normal LV size. Mild concentric left ventricular hypertrophy. Mild inferior hypokinesis. Septal wall motion consistent with left bundle branch block. Estimated LVEF 55%. Stage I diastolic dysfunction. Right Ventricle Normal right ventricle. Atria The left and right atria are normal. Mitral Valve Trivial mitral valve insufficiency. Tricuspid Valve Trivial tricuspid valve insufficiency. Unable to estimate RV systolic pressure due to insufficient tricuspid regurgitant envelope. Aortic Valve Trisinus/trileaflet aortic valve. Mild (1+) aortic valve insufficiency. Pulmonic Valve The pulmonic valve is not well visualized. Trivial pulmonic valve insufficiency. Great Vessels Normal sized aortic root. Pericardium/Pleural No pericardial effusion. MMode/2D Measurements & Calculations LVIDd: 3.7 cm IVSd: 1.3 cm Ao root diam: 3.2 cm LVIDs: 2.6 cm LVPWd: 1.4 cm RVDd: 3.2 cm FS: 29.6 % LAV(MOD-bp): 49.9 ml LVAd ap2: 23.3 cm2 SV(MOD-sp2): 32.2 ml LAV(MOD-bp) Indexed: 30.2 ml/m2 LVLd ap2: 8.0 cm SI(MOD-sp2): 19.5 ml/m2 LAV(MOD-sp2): 46.4 ml EDV(MOD-sp2): 56.3 ml LAV(MOD-sp4): 47.0 ml EDV(sp2-el): 57.8 ml LVAs ap2: 14.1 cm2 LVLs ap2: 7.0 cm ESV(MOD-sp2): 24.1 ml ESV(sp2-el): 23.9 ml EF(MOD-sp2): 57.2 % LA A4 area: 18.2 cm2 LA dimension(2D): 3.3 cm RA A4 area: 14.2 cm2 TAPSE: 2.3 cm Time Measurements MV dec time: 0.25 sec Doppler Measurements & Calculations MV A max marcel: 84.9 cm/sec Lat Peak E' Marcel: 7.3 cm/sec Med Peak E' Marcel: 4.8 cm/sec Ao V2 max: 138.1 cm/sec LV V1 max: 98.0 cm/sec PA V2 max: 111.6 cm/sec Ao max P.6 mmHg LV V1 max P.8 mmHg TR max marcel: 267.7 cm/sec TR max P.7 mmHg ECHO/Echo Complete Interpretation Summary Mild concentric left ventricular hypertrophy. Mild inferior hypokinesis. Septal wall motion consistent with left bundle branc h block. Estimated LVEF 55%. Stage I diastolic dysfunction. Mild (1+) aortic valve insufficiency. Ordering Physician: Kobi Whitfield Referring Physician: CITLALY BARRON Performed By: Ivana Ramos RDCS
--- NOTE | 2025-02-24 12:27 | PCM.HP.STD ---
HPI - General General Date of Admission: 02/24/25 HPI Narrative WILLEM EVANS, is a 79 F who presents left-sided weakness and facial droop. Patient has history of CVA in December 2024, did receive TNK and was transferred to a [facility]. 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 Patient's daughter had noticed patient with a slight left facial droop 2 days prior to patient's admission. This was followed by subjective weakness involving the left lower extremity the following day. She did check up on her mom and found patient to have flaccid paralysis involving the left upper extremity necessitating patient being brought to the emergency department. Imaging studies obtained demonstrated a high-grade stenosis in the proximal M1 horizontal component of the right middle cerebral, measuring 0.5 cm in length. Call was placed for patient to have been transferred to [facility]. Patient's daughter however requested further transfer not to take place. Patient family wanted patient placed placed in the facility instead. 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 Depression Inflammatory bowel disease Anxiety Home Medications ?Medication ?Instructions ?Recorded ?Last Taken ?Type fluoxetine 40 mg capsule 60 mg PO DAILY 10/17/21 Unknown History multivitamin 1 tab PO DAILY 10/17/21 Unknown History buspirone 10 mg tablet 10 mg PO TID 02/28/24 Unknown History melatonin 10 mg capsule 10 mg PO QHS PRN sleep 02/28/24 Unknown History memantine 10 mg tablet 10 mg PO BID 02/28/24 Unknown History polyethylene glycol 3350 17 17 g PO DAILY 03/08/24 Unknown History gram/dose oral powder (ClearLax) sennosides 8.6 mg tablet 17.2 mg PO BID 03/08/24 Unknown History (Evac-U-Gen (sennosides)) gabapentin 100 mg capsule 100 mg PO TID PRN PRN for pain 12/18/24 Unknown History losartan 25 mg tablet 25 mg PO DAILY 12/18/24 Unknown History trazodone 50 mg tablet 50 mg PO QHS 12/18/24 Unknown History Allergy/AdvReac Type Severity Reaction Status Date / Time No Known Allergies Allergy Verified 02/24/25 09:29 Social History household members: spouse housing: house Smoking Status: Never smoker ROS ROS Narrative Difficult to elicit with patient being dysarthric Vital Signs Vital Signs Vital Signs: 02/24/25 09:29 02/24/25 09:44 02/24/25 09:44 Temperature 98.0 F Temperature Source Oral Pulse Rate 85 78 Respiratory Rate 22 H 21 H Blood Pressure 152/85 H 154/77 H Blood Pressure Mean 107 102 Pulse Ox 95 95 Oxygen Delivery Method Room Air Room Air Room Air 02/24/25 10:08 02/24/25 11:27 Temperature Temperature Source Pulse Rate 77 73 Respiratory Rate 16 18 Blood Pressure 165/80 H 152/92 H Blood Pressure Mean 108 112 Pulse Ox 97 98 Oxygen Delivery Method Room Air Weight Weight: 57.5 kg Body Mass Index (BMI) 20.5 Physical Exam Narrative GENERAL: Dysarthric HEENT: Atraumatic; normocephalic EYES; Anicteric, Normal Conjunctiva NECK; supple, normal thyroid, RESPIRATORY: Diminished to auscultation CARDIOVASCULAR: Regular S1 S2, GI: soft, normoactive bowel sounds, : No Renal angle tenderness; EXTREMITIES: No edema, no clubbing, MUSCULOSKELETAL: no muscle wasting NEURO: Awake; left facial droop with flaccid paralysis involving the left upper extremity SKIN: No Rash PSYCH; Flat affect Results Lab / Micro Data 02/24/25 09:35 02/24/25 09:35 Labs: Laboratory Results - last 24 hr 02/24/25 09:35: WBC 10.1, RBC 3.92 L, Hgb 11.4 L, Hct 34.4 L, MCV 87.8, MCH 29.1, MCHC 33.1, RDW Std Deviation 46.4 H, RDW Coeff of Shon 14.4, Plt Count 406, MPV 10.2, Immature Gran % (Auto) 0.300, Neut % (Auto) 77.1 H, Lymph % (Auto) 14.0 L, [place] % (Auto) 7.6, Eos % (Auto) 0.4, Baso % (Auto) 0.6, Absolute Neuts (auto) 7.8 H, Absolute Lymphs (auto) 1.42, Nucleated RBC % 0, PT 12.8, INR 1.0, APTT 28.7, Sodium 140, Potassium 3.4, Chloride 103, Carbon Dioxide 22.6, Anion Gap 14, BUN 9, Creatinine 0.63 L, Estim Creat Clear Calc 51.76, Est GFR (MDRD) Non-Af 90, BUN/Creatinine Ratio 14.9, Glucose 116 H, Calcium 9.5, Troponin T High Sens 20 H D 02/24/25 09:39: POC Glucose 113 H Imaging Radiology Impression Brain CT 02/24/25 10:15 IMPRESSION: 1. Small vessel ischemic/degenerative changes. 2. No acute intracranial hemorrhage, midline shift or mass effect. If symptoms persist, further evaluation with MRI is recommended. Red Alert: No acute intracranial hemorrhage. The critical information above was relayed directly by me by telephone to Jared Jaramillo on 02/24/2025 at 10:37 am with readback verification. Reading Location: [facility] Head/Neck CTA 02/24/25 10:15 IMPRESSION: There is a high-grade stenosis in the proximal M1 horizontal component of the right middle cerebral, measuring 0.5 cm in length, axial image [id number]. Critical results were discussed with Dr. Jaramillo by Dr. Reddy at the time of dictation. Reading Location: [facility] Assessment & Plan Assessment/Plan (1) Acute right MCA stroke: PLAN: Plan Patient is a 79-year-old female presenting with left-sided weakness 1. Acute CVA ? Patient presented with left facial droop with left-sided weakness. Imaging studies obtained in the ED did show a high-grade stenosis in the proximal M1 horizontal component of the right middle cerebral, measuring 0.5 cm in length. Patient was accepted for transfer to [facility] regarding her large vessel occlusion for intervention patient family however declined for patient to be transferred. Patient admitted to a monitored bed requested for PT/OT/ST evaluation. Patient started on antiplatelet therapy with aspirin as well as atorvastatin. 2D echo and an MRI ordered as part of patient's evaluation. Consult placed to [facility] telescuro. Patient was not a candidate for TNK given the fact that her last known well is unknown #2. Previous CVA ? Patient did receive TNK and transferred to a [facility] [place] where no intervention was done regarding her high-grade stenosis in the proximal M1?right MCA 3. Essential hypertension ? Will proceed permissive hypertension protocol 4. Depression with anxiety ? Patient is on fluoxetine as well as buspirone 5. Dementia ? Patient is on memantine 10 mg twice daily will resume once home meds have been reconciled 6. Anemia ? Secondary to chronic disorder monitoring H&H and transfuse if patient becomes symptomatic or hemoglobin falls below 7 7. DVT prophylaxis ? Subcu Lovenox Time spent in the patient's overall evaluation,decision-making process, review of diagnostic data, adjustment of management, discussion with other providers, nursing nursing and ancillary staff involved in patient's care documentation, 75 Minutes Advance planning; did discuss with the patient and family (patient's daughter) regarding advanced directives as well as CODE STATUS. Did explain the various scenarios involved ( FULL CODE, DNR CCA, DNR CCA with no intubation, and DNR CC and what each meant) patient elected to be DNR CCA no intubation. Order was placed. Time spent on discussion 16 minutes. Charges/Coding Multi Select Codes Visit Charges Visit Charges: 84057 Init Hosp Hospitalists' Procedures Procedures: 69494 Advncd Care Plan 30 Min
--- NOTE | 2025-02-24 12:35 | CM.ED ---
Social Work SW met with patients daughter and . Family stated that they were no longer able to care for patient at home and they would like patient admitted to SNF for jail care. All questions answered regarding insurance authorization and jail payer options. No further needs identified at this time. Tonya Booker, SUPERVISOR [employer], [employer]
[2025-02-24 13:33] LABS: Troponin T High Sens 2 HR 16 ng/L (<=14)
[2025-02-24] MEDS: 0.9% Normal Saline (1000mL) 1,000 ML 125 ML IV ×2 (15:41→23:10)
[2025-02-24 16:36] LABS: Troponin T High Sens 4 HR 19 ng/L (<=14)
[2025-02-25] VITALS (11 sets, daily range): BP systolic 139–188; BP diastolic 68–94; PULSE 83–89; RESP 14–16; TEMP 36.1–36.8; O2SAT 93–96
[2025-02-25] MEDS: 0.9% Normal Saline (1000mL) 1,000 ML 125 ML IV ×3 (06:14→22:50)
[2025-02-25 06:50] LABS: Hematocrit 33.4 % (37-47); Hemoglobin 11.2 g/dL (12.0-15.0); Immature Granulocytes Count 0.030 X10^3/uL (0.0-0.0); Mean Corp Hgb Conc 33.5 g/dL (32-36); Mean Corpuscular Volume 86.1 fL (81-99); Mean Platelet Vol. 11.3 fl (6.2-12.0); NRBC Flagged by Analyzer 0 % (0-5); POSITIVE COUNT YES; RBC Distribution Width CV 14.4 % (11.6-14.6); RBC Distribution Width SD 45.6 fl (35.1-43.9); Red Blood Count 3.88 M/mm3 (4.2-5.4); White Blood Count 10.0 K/mm3 (4.4-11.0)
[2025-02-25 07:00] LABS: Cholesterol 142 mg/dL (<=200); Low Density Lipoprotein Calc. 66 mg/dL; Magnesium 1.8 mg/dL (1.5-2.2); Triglycerides 84 mg/dL; Very Low Density Lipoprotein 17 mg/dL (5-40); cholesterol:hdl ratio screen 2.40
[2025-02-25 07:03] LABS: Anion Gap 17 (5-15); BUN 5 mg/dL (4-19); BUN/Creat Ratio 8.7 RATIO (10-20); Calcium,Total 9.2 mg/dL (7.6-11.0); Carbon Dioxide 17.5 mmol/L (21.0-32.0); Chloride 103 mmol/L (98-108); Estimated Creatinine Clearance 50.95 ml/min (50-250); Glucose 87 mg/dL (70-99); Potassium 3.5 mmol/L (3.3-5.1)
[2025-02-25 07:43] LABS: Differential Indicated SCAN CRITERIA MET
--- NOTE | 2025-02-25 09:34 | CASEMGMT ---
Addendum entered by Cristela Becerril 02/25/25 09:36: *correction, list provided to RN MARISA. Cristela Becerril DC Planning Asst. Original Note: Discharge Planning A list of SNF providers including quality and resource use data and consistent with the patient's preferred geographic region, medical needs, and insurance network was created in [employer] Guide.? This list was provided to the . Cristela Becerril, Discharge Planning Asst.
--- NOTE | 2025-02-25 10:04 | CASEMGMT ---
Addendum entered by Thomas Rivas 02/25/25 11:04: Pt also reports that he is interested in admission to the SNF that the pt gets accepted at. Pt states that he has enough funding to cover the costs initially. PCU SW and RN MARISA updated. Original Note: RN MARISA Assessment Face to Face with patient for initial transition planning/care coordination assessment. Pt has a hx of dementia and is A&Ox1 currently. Pt's at bedside and willing to help answer this [facility] questions for assessment. Care providers, pharmacy, and demographics verified. Admitting dx: Left Facial Droop PCP: Kerwin العراقي Specialists: Declines Preferred Pharmacy: [facility] Insurance: [employer] Prescription Benefit: Yes LNOK: Kiet (H), Lindsey Bell (Daughter). Kiet states that Lindsey is an [employer]CHITECT Living Arrangements: Pt lives with her in a ground level apartment with one step to enter ADLs/IADLs: has to assist the pt and does not feel as if he can care for the pt in her current state Transportation: DME: Access to a rollator, cane, FWW, W/C, and BP Machine HHC/SNF: Denies hx Plan: Anticipate SNF at the time of DC, as this is what family is wanting. Per chart review, pt's family has declined transfer to a tertiary facility. Current 6-Click score is 17 and PT is pending. Pt's was provided with the SNF list printed by the DPA (see note). At this time, the pt's states that he prefers [facility] and wishes to continue reviewing the list for further options. Pt declines further questions at this time. Report given to [facility]AL[facility] ASSURANCE CONSULTANT CM. Jocelin Rivas RN, CM
--- NOTE | 2025-02-25 10:19 | CASEMGMT ---
Family prefers [facility] for SNF at discharge per RN CM assessment. Discharge manager planning to send referral. CM will continue to follow this patient and plan for a safe dishcarge.
--- NOTE | 2025-02-25 10:21 | PN.HOSP_ITS ---
Reason for Visit Chief Complaint: Left-sided weakness Subjective Subjective Patient is a 79-year-old female presenting with left-sided weakness. An assessment of acute CVA admitted admitted to a monitored bed where patient is currently undergoing evaluation. Patient is scheduled to undergo cookie swallow as well as MRI Objective Data Objective Data Vital Signs: Vital Signs Temp Pulse Resp BP Pulse Ox O2 Del Method 97.8 F 84 14 139/77 H 94 Room Air 02/25/25 07:28 02/25/25 07:28 02/25/25 07:28 02/25/25 07:28 02/25/25 07:32 02/25/25 07:32 Oxygen Delivery Method Room Air Weight: 56.6 kg Body Mass Index (BMI) 20.0 Intake & Output: Intake and Output for Last 24 Hours 02/23/25 02/24/25 02/25/25 23:59 23:59 23:59 Intake Total 1933.33 / 1933.33 881.25 / 881.25 Output Total 600 / 600 Balance 1333.33 / 1333.33 881.25 / 881.25 Lab / Micro Data 02/25/25 05:23 02/25/25 05:23 Labs: Laboratory Results - last 24 hr 02/24/25 09:35: PT 12.8, INR 1.0, APTT 28.7, Sodium 140, Potassium 3.4, Chloride 103, Carbon Dioxide 22.6, Anion Gap 14, BUN 9, Creatinine 0.63 L, Estim Creat Clear Calc 51.76, Est GFR (MDRD) Non-Af 90, BUN/Creatinine Ratio 14.9, Glucose 116 H, Calcium 9.5, Troponin T High Sens 20 H D 02/24/25 12:50: Troponin T Hi Sens 2 Hr 16 H 02/24/25 14:50: Troponin T Hi Sens 4Hr 19 H 02/25/25 05:23: WBC 10.0, RBC 3.88 L, Hgb 11.2 L, Hct 33.4 L, MCV 86.1, MCH 28.9, MCHC 33.5, RDW Std Deviation 45.6 H, RDW Coeff of Shon 14.4, Plt Count TNP, MPV 11.3, Immature Gran % (Auto) 0.300, Neut % (Auto) 75.8 H, Lymph % (Auto) 15.2 L, Braxton % (Auto) 7.6, Eos % (Auto) 0.6, Baso % (Auto) 0.5, Absolute Neuts (auto) 7.5, Absolute Lymphs (auto) 1.51, Nucleated RBC % 0, Platelet Estimate ADEQUATE, Sodium 137, Potassium 3.5, Chloride 103, Carbon Dioxide 17.5 L, Anion Gap 17 H, BUN 5, Creatinine 0.53 L, Estim Creat Clear Calc 50.95, Est GFR (MDRD) Non-Af 94, BUN/Creatinine Ratio 8.7 L, Glucose 87, Calcium 9.2, Phosphorus 2.8, Magnesium 1.8, Triglycerides 84, Cholesterol 142, LDL Cholesterol, Calc 66, VLDL Cholesterol 17, HDL Cholesterol 59, Cholesterol/HDL Ratio 2.40 Radiography Diagnostic Testing: Radiology Impression Brain CT 02/24/25 10:15 IMPRESSION: 1. Small vessel ischemic/degenerative changes. 2. No acute intracranial hemorrhage, midline shift or mass effect. If symptoms persist, further evaluation with MRI is recommended. Red Alert: No acute intracranial hemorrhage. The critical information above was relayed directly by me by telephone to Jared Jaramillo on 02/24/2025 at 10:37 am with readback verification. Reading Location: [facility] Head/Neck CTA 02/24/25 10:15 IMPRESSION: There is a high-grade stenosis in the proximal M1 horizontal component of the right middle cerebral, measuring 0.5 cm in length, axial image [id number]. Critical results were discussed with Dr. Jaramillo by Dr. Reddy at the time of dictation. Reading Location: [facility] Physical Exam Narrative GENERAL: Dysarthric HEENT: Atraumatic; normocephalic EYES; Anicteric, Normal Conjunctiva NECK; supple, normal thyroid, RESPIRATORY: Diminished to auscultation CARDIOVASCULAR: Regular S1 S2, GI: soft, normoactive bowel sounds, : No Renal angle tenderness; EXTREMITIES: No edema, no clubbing, MUSCULOSKELETAL: no muscle wasting NEURO: Awake; left facial droop with flaccid paralysis involving the left upper extremity SKIN: No Rash PSYCH; Flat affect Assessment & Plan Assessment/Plan (1) Acute right MCA stroke: PLAN: Plan Patient is a 79-year-old female presenting with left-sided weakness 1. Acute CVA ? Patient presented with left facial droop with left-sided weakness. Imaging studies obtained in the ED did show a high-grade stenosis in the proximal M1 horizontal component of the right middle cerebral, measuring 0.5 cm in length. Patient was accepted for transfer to [facility] regarding her large vessel occlusion for intervention patient family however declined for patient to be transferred. Patient admitted to a monitored bed requested for PT/OT/ST evaluation. Patient started on antiplatelet therapy with aspirin as well as atorvastatin. 2D echo and an MRI ordered as part of patient's evaluation. Consult placed to [facility]. Patient was not a candidate for TNK given the fact that her last known well is unknown ? 02/25/2025; patient scheduled to undergo cookie swallow and MRI #2. Previous CVA ? Patient did receive TNK and transferred to a [facility] where no intervention was done regarding her high-grade stenosis in the proximal M1?right MCA 3. Essential hypertension ? Will proceed permissive hypertension protocol 4. Depression with anxiety ? Patient is on fluoxetine as well as buspirone 5. Dementia ? Patient is on memantine 10 mg twice daily will resume once home meds have been reconciled 6. Anemia ? Secondary to chronic disorder monitoring H&H and transfuse if patient becomes symptomatic or hemoglobin falls below 7 7. DVT prophylaxis ? Subcu Lovenox Time spent in the patient's overall evaluation,decision-making process, review of diagnostic data, adjustment of management, discussion with other providers, nursing nursing and ancillary staff involved in patient's care documentation, 38 Minutes Charges/Coding Visit Charges Inpatient E&M: 19197 Subs Hosp L2 NIHSS NIHSS Nursing Documentation NIHSS Nursing Documentation: NIHSS: Ischemic Stroke/TIA Start: 02/24/25 13:56 Text: For PCU Patients: NIH and Neuro Check every 4 Status: Active hours, PRN and with change in RN caregiver. Freq: [id number] Protocol: Activity Type Activity Date Activity User E-sign Co-sign Detail Recorded Client Recorded Date Recorded By Document 02/25/25 07:33 DS [id number] 02/25/25 07:55 DS 02/25/25 07:33 NIH Stroke Scale [NIHSS] A score of 0 is normal or asymptomatic . Total possible score is 42. Inpatient: RN or Physician to activate a stroke alert for onset of new stroke symptoms or with NIHSS increase >/= 3 points. Following change in neurological status, NIHSS will be performed per physician order or more frequently PRN. -1a. Level of Consciousness 0 - Alert; keenly responsive -1b. LOC Questions 0 - Answers BOTH questions correctly -1c. LOC Commands 0 - Performs BOTH tasks correctly -2. Best Gaze 0 - Normal -3. Visual 1 - Partial hemianopia -4. Facial Palsy 2 - Partial paralysis ( total or near- total paralysis of lower face) -5a. Left Arm 1 - Drift; arm drifts downward but doesn?t hit the bed -5b. Right Arm 0 - No drift; arm holds 90 ( or 45) degrees for full 10 seconds -6a. Left Leg 0 - No drift; leg holds 30- degree position for full 5 seconds -6b. Right Leg 0 - No drift; leg holds 30- degree position for full 5 seconds -7. Limb Ataxia 1 - Present in 1 limb -8. Sensory 1 - Mild-to- moderate sensory loss; -9. Best Language 1 - Mild-to- moderate aphasia; -10. Dysarthria 1 = Mild-to- moderate dysarthria; -11. Extinction and Inattention 0 - No abnormality -Total 8 Query Text:A score of 0 is normal or asymptomatic. Total possible score is 42 . ED: Notify Physician for NIHSS increase by > / = 3 points. Inpatient: RN or Physician to activate a stroke alert for NIHSS increase of > / = 3 points. Coma Scale [Assess] -Eye Opening Spontaneous -Motor Obeys Commands -Verbal Confused [Total] -Coma Scale Total 14
[2025-02-25] MEDS: Lorazepam 2 MG/ML WCH Syringe 0.5 MG IV (10:26)
[2025-02-25] MEDS: 0.9% Saline Lock 10 ML Syringe IV (10:26)
--- NOTE | 2025-02-25 10:26 | CON.PCM.NE_ITS ---
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 IVF until able to take po - DVT prophylaxis with SCDs and heparin SQ - Vascular risk factor modification. The following are the recommended guidelines: LDL Goal < 70 Smoking Cessation Diabetes Management snf blood pressure control should achieve <130/80 mmHg. BP management should aim to achieve ad terminal makeup operator contorl in a reasonable amount of time, taking into consideration the individual patient's requirements and characteristics. Weight Management: Goal for BMI is 18.5 -24.9 kg/m2 Alcohol: No more than 2 drinks/day for men or 1 drink/day for non- women - Promote lifestyle modification: weight control, physical activity, moderation of alcohol intake, moderate sodium intake. Followup with PCP in 1-2 weeks, and in Neurology clinic in 6-12 weeks HPI Consult Data Date of Consult: 02/25/25 HPI Narrative HPI Narrative: WILLEM EVANS, is a 79 F who presents left-sided weakness and facial droop. Patient has history of CVA in December 2024, did receive TNK and was transferred to a [facility]. 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 Patient's daughter had noticed patient with a slight left facial droop 2 days prior to patient's admission. This was followed by subjective weakness involving the left lower extremity the following day. She did check up on her mom and found patient to have flaccid paralysis involving the left upper extremity necessitating patient being brought to the emergency department. Imaging studies obtained demonstrated a high-grade stenosis in the proximal M1 horizontal component of the right middle cerebral, measuring 0.5 cm in length. Call was placed for patient to have been transferred to [facility]. Patient's daughter however requested further transfer not to take place. Patient family wanted patient placed placed in the facility instead. Neurologic History Patient at baseline only is aware of person and some family members. The day before she was having progressive weakness that worsened and could no longer walk. She had weakness in December and had facial droop then. Patient did not recover completely after the December stroke. They notice most of the weakness at baseline on the L arm. Can no longer walk on her own, someone always has to walk with her from now on even though she does not use assistive devices. She has baseline dementia, did not worsen in December -? General: Laying comfortably in bed; in no acute distress. -? HENT: Normal oropharynx and mucosa. Normal external appearance of ears and nose. Exophthalmos. -? Neck: Supple, no pain or tenderness -? CV:? No peripheral edema. -? Pulmonary:? Normal respiratory effort. -? Ext: No cyanosis, edema, or deformity -? Skin: No rash. Normal palpation of skin.? -? Musculoskeletal: full range of motion; no joint tenderness. Normal digits and nails by inspection. No clubbing. -? NEURO: -? Mental Status: The patient was alert and oriented to time, place, and person. Normal recent/remote memory, concentration, and general fund of knowledge. -? Language: speech is clear.? Naming, repetition, fluency, and comprehension intact. -? Cranial Nerves: PERRL 4 mm/brisk. EOMI, visual boyer full, R facial droop facial sensation intact, hearing intact Sternocleidomastoid and trapezius were equally strong. Soft palate raises equally, no uvular deviations -? Motor: minimal movement in plane of bed with the LUE, antigravity in the RUE strongly b./l LE antigravity with no drift -? Tone: low tone in the LUE -? Sensation- difficult to assess, appears to have some extinction on the L -? Coordination: No dysmetria on [id number], finger follow finger or [id number]. -? Gait- Gait initiation was normal. Narrow base with good heel strike and stride length was observed during ambulation. Turns were in stride. Patient was able to walk normally in tandem. Romberg was normal. 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 Depression Inflammatory bowel disease Anxiety Home Medications ?Medication ?Instructions ?Recorded ?Last Taken ?Type fluoxetine 40 mg capsule 60 mg PO DAILY anxiety 10/17 Unknown History multivitamin 1 tab PO DAILY suppliment Unknown History buspirone 10 mg tablet 10 mg PO TID mood 02/28/24 U nknown History melatonin 10 mg capsule 10 mg PO QHS PRN sleep 02/27 Unknown History memantine 10 mg tablet 10 mg PO BID memory 02/28/24 Unknown History polyethylene glycol 3350 17 17 g PO DAILY PRN constipa tion 03/08/24 Unknown History gram/dose oral powder (ClearLax) sennosides 8.6 mg tablet 17.2 mg PO BID PRN constipat ion 03/08/24 Unknown History (Evac-U-Gen (sennosides)) gabapentin 100 mg capsule 100 mg PO TID PRN PRN for pa in 12/18/24 Unknown History losartan 25 mg tablet 25 mg PO DAILY bp 12/18/24 U nknown History trazodone 50 mg tablet 50 mg PO QHS sleep 12/18/24 Unknown History aspirin 81 mg chewable tablet 1 tab PO DAILY supplimen t 02/24/25 Unknown History atorvastatin 40 mg tablet 40 mg PO QHS cholesterol Unknown History fluoxetine 20 mg capsule 60 mg PO DAILY depression Unknown History primidone 50 mg tablet (Mysoline) 25 mg PO QHS sleep/t remmors 02/24/25 Unknown History Allergy/AdvReac Type Severity Reaction Status Date / Time No Known Allergies Allergy Verified 02/24/25 09:29 Social History (Updated 02/24/25 @ 14:20 by Kera Vigil)
--- NOTE | 2025-02-25 10:26 | STROKE.CONS ---
Assessment and Plan: Stroke Assessment/Plan WILLEM EVANS is a 79 F with a history of CVA in December 2024, did receive TNK, known RM1 stenosis who presents for evaluation of new L sided weakness. Concern for new RMCA stroke and MRI bRain with new watershed looking stroke. Etiology likely 2/2 ICAD - Anti-platelet medication: recommend Plavix load 300mg and then doing Plavix 75mg+ASA 81mg x 90 days for her ICAD - for next 2 weeks, keep SBP 130-160/80-90, then BP goal should be <140/80 - LDL 66, A1c 6.0 - Occupational/ Physical therapy consults - NPO until swallow evaluation. IVF until able to take po - DVT prophylaxis with SCDs and heparin SQ - Vascular risk factor modification. The following are the recommended guidelines: LDL Goal < 70 Smoking Cessation Diabetes Management supervisor intermediates blood pressure control should achieve <130/80 mmHg. BP management should aim to achieve long-term contorl in a reasonable amount of time, taking into consideration the individual patient's requirements and characteristics. Weight Management: Goal for BMI is 18.5 -24.9 kg/m2 Alcohol: No more than 2 drinks/day for men or 1 drink/day for non- women - Promote lifestyle modification: weight control, physical activity, moderation of alcohol intake, moderate sodium intake. Followup with PCP in 1-2 weeks, and in Neurology clinic in 6-12 weeks HPI Consult Data Date of Consult: 02/25/25 HPI Narrative HPI Narrative: WILLEM EVANS, is a 79 F who presents left-sided weakness and facial droop. Patient has history of CVA in December 2024, did receive TNK and was [place] [facility] 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 Patient's daughter had noticed patient with a slight left facial droop 2 days prior to patient's admission. This was followed by subjective weakness involving the left lower extremity the following day. She did check up on her mom and found patient to have flaccid paralysis involving the left upper extremity necessitating patient being brought to the emergency department. Imaging studies obtained demonstrated a high-grade stenosis in the proximal M1 horizontal component of the right middle cerebral, measuring 0.5 cm in length. Call was placed for patient to have been transferred to [facility]. Patient's daughter however requested further transfer not to take place. Patient family wanted patient placed placed in the facility instead. Neurologic History Patient at baseline only is aware of person and some family members. The day before she was having progressive weakness that worsened and could no longer walk. She had weakness in December and had facial droop then. Patient did not recover completely after the December stroke. They notice most of the weakness at baseline on the L arm. Can no longer walk on her own, someone always has to walk with her from now on even though she does not use assistive devices. She has baseline dementia, did not worsen in December -? General: Laying comfortably in bed; in no acute distress. -? HENT: Normal oropharynx and mucosa. Normal external appearance of ears and nose. Exophthalmos. -? Neck: Supple, no pain or tenderness -? CV:? No peripheral edema. -? Pulmonary:? Normal respiratory effort. -? Ext: No cyanosis, edema, or deformity -? Skin: No rash. Normal palpation of skin.? -? Musculoskeletal: full range of motion; no joint tenderness. Normal digits and nails by inspection. No clubbing. -? NEURO: -? Mental Status: The patient was alert and oriented to time, place, and person. Normal recent/remote memory, concentration, and general fund of knowledge. -? Language: speech is clear.? Naming, repetition, fluency, and comprehension intact. -? Cranial Nerves: PERRL 4 mm/brisk. EOMI, visual boyer full, R facial droop facial sensation intact, hearing intact Sternocleidomastoid and trapezius were equally strong. Soft palate raises equally, no uvular deviations -? Motor: minimal movement in plane of bed with the LUE, antigravity in the RUE strongly b./l LE antigravity with no drift -? Tone: low tone in the LUE -? Sensation- difficult to assess, appears to have some extinction on the L -? Coordination: No dysmetria on [id number], finger follow finger or [id number]. -? 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 Depression Inflammatory bowel disease Anxiety Home Medications ?Medication ?Instructions ?Recorded ?Last Taken ?Type fluoxetine 40 mg capsule 60 mg PO DAILY anxiety 10/17/21 Unknown History multivitamin 1 tab PO DAILY suppliment 10/17/21 Unknown History buspirone 10 mg tablet 10 mg PO TID mood 02/28/24 Unknown History melatonin 10 mg capsule 10 mg PO QHS PRN sleep 02/28/24 Unknown History memantine 10 mg tablet 10 mg PO BID memory 02/28/24 Unknown History polyethylene glycol 3350 17 17 g PO DAILY PRN constipation 03/08/24 Unknown History gram/dose oral powder (ClearLax) sennosides 8.6 mg tablet 17.2 mg PO BID PRN constipation 03/08/24 Unknown History (Evac-U-Gen (sennosides)) gabapentin 100 mg capsule 100 mg PO TID PRN PRN for pain 12/18/24 Unknown History losartan 25 mg tablet 25 mg PO DAILY bp 12/18/24 Unknown History trazodone 50 mg tablet 50 mg PO QHS sleep 12/18/24 Unknown History aspirin 81 mg chewable tablet 1 tab PO DAILY suppliment 02/24/25 Unknown History atorvastatin 40 mg tablet 40 mg PO QHS cholesterol 02/24/25 Unknown History fluoxetine 20 mg capsule 60 mg PO DAILY depression 02/24/25 Unknown History primidone 50 mg tablet (Mysoline) 25 mg PO QHS sleep/tremmors 02/24/25 Unknown History Allergy/AdvReac Type Severity Reaction Status Date / Time No Known Allergies Allergy Verified 02/24/25 09:29 Social History (Updated 02/24/25 @ 14:20 by Kera Vigil) household members: spouse housing: house Smoking Status: Never smoker Vital Signs Vital Signs Vital Signs: 02/24/25 11:27 02/24/25 13:00 02/24/25 13:44 Temperature 97.4 F L Temperature Source Pulse Rate 73 78 78 Respiratory Rate 18 18 16 Respiratory Effort Respiratory Depth Respiratory Pattern Blood Pressure 152/92 H 196/91 H 196/91 H Blood Pressure Mean 112 126 126 Blood Pressure Source Blood Pressure Position Blood Pressure Location Pulse Ox 98 96 94 Oxygen Delivery Method Room Air 02/24/25 13:55 02/24/25 14:00 02/24/25 14:22 Temperature 97.9 F Temperature Source Oral Pulse Rate 74 Respiratory Rate 16 Respiratory Effort Normal Non-Labored Respiratory Depth Normal Respiratory Pattern Normal Blood Pressure 197/76 H Blood Pressure Mean 116 Blood Pressure Source Monitor Blood Pressure Position Semi-Fowlers Blood Pressure Location Right Arm Pulse Ox 94 97 Oxygen Delivery Method Room Air Room Air Room Air 02/24/25 17:57 02/24/25 20:40 02/24/25 20:48 Temperature 98.6 F 97.4 F L Temperature Source Oral Temporal Pulse Rate 84 81 Respiratory Rate 14 16 Respiratory Effort Normal Non-Labored Respiratory Depth Normal Respiratory Pattern Normal Blood Pressure 164/84 H 184/77 H Blood Pressure Mean 110 112 Blood Pressure Source Monitor Monitor Blood Pressure Position Semi-Fowlers Semi-Fowlers Blood Pressure Location Right Arm Right Arm Pulse Ox 95 95 Oxygen Delivery Method Room Air Room Air Room Air 02/25/25 00:40 02/25/25 02:41 02/25/25 04:40 Temperature 97.5 F L 97.0 F L Temperature Source Temporal Temporal Pulse Rate 84 85 Respiratory Rate 15 16 Respiratory Effort Normal Non-Labored Respiratory Depth Normal Respiratory Pattern Normal Blood Pressure 177/85 H 174/82 H Blood Pressure Mean 115 112 Blood Pressure Source Monitor Monitor Blood Pressure Position Semi-Fowlers Semi-Fowlers Blood Pressure Location Right Arm Right Arm Pulse Ox 94 94 Oxygen Delivery Method Room Air Room Air Room Air 02/25/25 07:28 02/25/25 07:30 02/25/25 07:32 Temperature 97.8 F Temperature Source Oral Pulse Rate 84 Respiratory Rate 14 Respiratory Effort Normal Non-Labored Respiratory Depth Normal Respiratory Pattern Normal Blood Pressure 139/77 H Blood Pressure Mean 97 Blood Pressure Source Monitor Blood Pressure Position Semi-Fowlers Blood Pressure Location Right Arm Pulse Ox 95 94 Oxygen Delivery Method Room Air Room Air Room Air Weight Weight: 56.6 kg Body Mass Index (BMI) 20.0 EEG Results Procedure Details EEG Procedure Details: WILLEM EVANS is a 79 year old F with a past medical history of , who presents for evaluation of Electroencephalogram on DATE at TIME Lab / Micro Data 02/25/25 05:23 02/25/25 05:23 Labs: Laboratory Results - last 24 hr 02/24/25 09:35: PT 12.8, INR 1.0, APTT 28.7, Sodium 140, Potassium 3.4, Chloride 103, Carbon Dioxide 22.6, Anion Gap 14, BUN 9, Creatinine 0.63 L, Estim Creat Clear Calc 51.76, Est GFR (MDRD) Non-Af 90, BUN/Creatinine Ratio 14.9, Glucose 116 H, Calcium 9.5, Troponin T High Sens 20 H D 02/24/25 12:50: Troponin T Hi Sens 2 Hr 16 H 02/24/25 14:50: Troponin T Hi Sens 4Hr 19 H 02/25/25 05:23: WBC 10.0, RBC 3.88 L, Hgb 11.2 L, Hct 33.4 L, MCV 86.1, MCH 28.9, MCHC 33.5, RDW Std Deviation 45.6 H, RDW Coeff of Shon 14.4, Plt Count TNP, MPV 11.3, Immature Gran % (Auto) 0.300, Neut % (Auto) 75.8 H, Lymph % (Auto) 15.2 L, [place] % (Auto) 7.6, Eos % (Auto) 0.6, Baso % (Auto) 0.5, Absolute Neuts (auto) 7.5, Absolute Lymphs (auto) 1.51, Nucleated RBC % 0, Platelet Estimate ADEQUATE, Sodium 137, Potassium 3.5, Chloride 103, Carbon Dioxide 17.5 L, Anion Gap 17 H, BUN 5, Creatinine 0.53 L, Estim Creat Clear Calc 50.95, Est GFR (MDRD) Non-Af 94, BUN/Creatinine Ratio 8.7 L, Glucose 87, Calcium 9.2, Phosphorus 2.8, Magnesium 1.8, Triglycerides 84, Cholesterol 142, LDL Cholesterol, Calc 66, VLDL Cholesterol 17, HDL Cholesterol 59, Cholesterol/HDL Ratio 2.40 Imaging Radiology Impression Brain CT 02/24/25 10:15 IMPRESSION: 1. Small vessel ischemic/degenerative changes. 2. No acute intracranial hemorrhage, midline shift or mass effect. If symptoms persist, further evaluation with MRI is recommended. Red Alert: No acute intracranial hemorrhage. The critical information above was relayed directly by me by telephone to Jared Jaramillo on 02/24/2025 at 10:37 am with readback verification. Reading Location: [facility] Head/Neck CTA 02/24/25 10:15 IMPRESSION: There is a high-grade stenosis in the proximal M1 horizontal component of the right middle cerebral, measuring 0.5 cm in length, axial image 360364/[id number]. Critical results were discussed with Dr. Jaramillo by Dr. Reddy at the time of dictation. Reading Location: [facility] Active Medications Active Medications Active Medications: Current Medications Generic Name Dose Route Start Last Admin Trade Name Freq PRN Reason Stop Dose Admin Acetaminophen 650 mg 02/24/25 13:56 Acetaminophen 325 Mg Tablet PO Q6H PRN PRN Pain 1-10 Or Fever>100.7 Al Hydroxide/Mg Hydroxide 30 ml 02/24/25 13:56 Mag Hydrox/Al Hydrox/Simeth 30 Ml Udc PO Q6H PRN PRN Gastric Burning Aspirin 81 mg 02/25/25 08:00 02/25/25 10:12 Aspirin 81 Mg Tab.Chew PO 81 mg DAILYCM BAUTISTA Administration Atorvastatin Calcium 40 mg 02/24/25 22:00 02/24/25 21:35 Atorvastatin Calcium 40 Mg Tablet PO Not Given QHS BAUTISTA Buspirone HCl 10 mg 02/25/25 14:00 Buspirone 5 Mg Tablet PO TID BAUTISTA Enoxaparin Sodium 40 mg 02/25/25 10:00 02/25/25 10:12 Enoxaparin 40 Mg/0.4 Ml Syringe SC 40 mg DAILY BAUTISTA Administration Famotidine 20 mg 02/24/25 22:00 02/25/25 10:12 Famotidine 20 Mg Tablet PO 20 mg BID BAUTISTA Administration Fluoxetine HCl 60 mg 02/25/25 10:30 Fluoxetine 20 Mg Capsule PO DAILY BAUTISTA Gabapentin 100 mg 02/25/25 10:16 Gabapentin 100 Mg Capsule PO TID PRN PRN for pain Hydralazine HCl 5 mg 02/24/25 13:56 Hydralazine 20 Mg/Ml Vial IV 02/25/25 13:56 Q30M PRN maintain BP parameters with HR <60 Sodium Chloride 1,000 mls @ 125 mls/hr 02/24/25 13:56 02/25/25 06:14 IV 125 mls/hr .Q8H BAUTISTA Administration Sodium Chloride 250 mls @ 15 mls/hr 02/24/25 14:20 IV .[id number] PRN Saline Flush Sodium Chloride 250 mls @ 15 mls/hr 02/24/25 14:20 IV .[id number] PRN Additional IVPB Infusion Labetalol HCl 10 - 20 mg 02/24/25 13:56 Labetalol 20 Mg/4 Ml Vial IV 02/25/25 13:56 Q10M PRN PRN maintain BP parameters with HR >/=60 Losartan Potassium 25 mg 02/25/25 10:30 Losartan Potassium 25 Mg Tablet PO DAILY [facility] Protocol Melatonin 3 mg 02/24/25 13:56 Melatonin 3 Mg Tablet PO QHS PRN PRN INSOMNIA Memantine 10 mg 02/25/25 10:30 Memantine Hydrochloride 10 Mg Tablet PO BID [facility] Nitroglycerin 0.4 mg 02/24/25 13:56 Nitroglycerin (Inpatient Use) 0.4 Mg Tab.Subl SL Q5M PRN CARDIAC/CHEST PAIN Non-Formulary Medication 17 gm 02/25/25 10:16 Polyethylene Glycol 3350 [Clearlax] PO DAILY PRN constipation Ondansetron HCl 4 mg 02/24/25 13:56 Ondansetron 4 Mg/2 Ml Vial IV Q8H PRN PRN NAUSEA/VOMITING Primidone 25 mg 02/25/25 22:00 Primidone 50 Mg Tablet PO QHS [facility] Senna tablet 02/25/25 10:16 Senna Tablet PO BID PRN constipation Senna/Docusate Sodium 2 tablet 02/24/25 13:56 Senna/Docusate Sodium 1 Tablet PO BID PRN PRN Constipation Sodium Chloride 10 - 40 ml 02/24/25 14:20 0.9% Saline Lock 10 Ml Syringe IV UD PRN SALINE FLUSH Trazodone HCl 50 mg 02/25/25 22:00 Trazodone 50 Mg Tablet PO QHS [facility] NIHSS NIHSS Nursing Documentation NIHSS Nursing Documentation: NIHSS: Ischemic Stroke/TIA Start: 02/24/25 13:56 Text: For PCU Patients: NIH and Neuro Check every 4 Status: Active hours, PRN and with change in RN caregiver. Freq: [id number] Protocol: Activity Type Activity Date Activity User E-sign Co-sign Detail Recorded Client Recorded Date Recorded By Document 02/25/25 07:33 DS [id number] 02/25/25 07:55 DS 02/25/25 07:33 NIH Stroke Scale [NIHSS] A score of 0 is normal or asymptomatic . Total possible score is 42. Inpatient: RN or Physician to activate a stroke alert for onset of new stroke symptoms or with NIHSS increase >/= 3 points. Following change in neurological status, NIHSS will be performed per physician order or more frequently PRN. -1a. Level of Consciousness 0 - Alert; keenly responsive -1b. LOC Questions 0 - Answers BOTH questions correctly -1c. LOC Commands 0 - Performs BOTH tasks correctly -2. Best Gaze 0 - Normal -3. Visual 1 - Partial hemianopia -4. Facial Palsy 2 - Partial paralysis ( total or near- total paralysis of lower face) -5a. Left Arm 1 - Drift; arm drifts downward but doesn?t hit the bed -5b. Right Arm 0 - No drift; arm holds 90 ( or 45) degrees for full 10 seconds -6a. Left Leg 0 - No drift; leg holds 30- degree position for full 5 seconds -6b. Right Leg 0 - No drift; leg holds 30- degree position for full 5 seconds -7. Limb Ataxia 1 - Present in 1 limb -8. Sensory 1 - Mild-to- moderate sensory loss; -9. Best Language 1 - Mild-to- moderate aphasia; -10. Dysarthria 1 = Mild-to- moderate dysarthria; -11. Extinction and Inattention 0 - No abnormality -Total 8 Query Text:A score of 0 is normal or asymptomatic. Total possible score is 42 . ED: Notify Physician for NIHSS increase by > / = 3 points. Inpatient: RN or Physician to activate a stroke alert for NIHSS increase of > / = 3 points. Coma Scale [Assess] -Eye Opening Spontaneous -Motor Obeys Commands -Verbal Confused [Total] -Coma Scale Total 14 NIHSS 1a. Level of Consciousness: 0 - Alert; keenly responsive 1b. LOC Questions: 2 - Answers NEITHER question correctly 1c. LOC Commands: 0 - Performs BOTH tasks correctly 2. Best Gaze: 0 - Normal 3. Visual: 0 - No visual loss 4. Facial Palsy: 2 - Partial paralysis (total or near-total paralysis of lower face) 5a. Left Arm: 3 - No effort against gravity; arm falls 5b. Right Arm: 0 - No drift; arm holds 90 (or 45) degrees for full 10 seconds 6a. Left Le - No drift; leg holds 30-degree position for full 5 seconds 6b. Right Le - No drift; leg holds 30-degree position for full 5 seconds 7. Limb Ataxia: 0 - Absent 8. Sensory: 1 - [id number] sensory loss; 9. Best Language: 0 - No aphasia; normal 10. Dysarthria: 0 - Normal 11. Extinction and Inattention: 1 - Visual, tactile, auditory, spatial, or personal inattention; Total: 9
--- NOTE | 2025-02-25 10:51 | CASEMGMT ---
Addendum entered by Cristela Becerril 02/25/25 11:45: [facility] has rec'd. RN CM updated and asked to submit for precert when therapy eval's are available. Cristela Becerril DC Planning Asst. Original Note: Discharge Planning Referral sent to [facility]. Cristela Becerril DC Planning Asst.
--- NOTE | 2025-02-25 10:55 | MRI_ITS ---
PROCEDURE: BRAIN WITHOUT CONTRAST 02/25/2025 REASON FOR EXAM: CVA TECHNIQUE: BRAIN WITHOUT CONTRAST Multiplanar and multisequence images were obtained. COMPARISON: CT head without contrast, 02/24/2025. FINDINGS: There are multiple foci of restricted diffusion in the periventricular and subcortical white matter of the right frontal, parietal and temporal lobes, consistent with acute embolic infarctions. There are superimposed areas of chronic infarction in the right temporal lobe, posteriorly and in the periventricular white matter of the right frontal and parietal lobes. Additionally there are chronic lacunar infarctions in both basal ganglia. There are multiple punctate foci of abnormal periventricular and subcortical white matter signal, in both cerebral hemispheres and in the ambrose, consistent with chronic ischemic white matter disease. There is moderate diffuse cerebral atrophy with appropriate ventriculomegaly. There is a normal sulcal pattern and gyral configuration. There is no evidence of acute intracranial hemorrhage. The hackett-white differentiation is well preserved. The basilar cisterns are normal. There are normal flow voids demonstrated in the recognized intracranial vessels. The cerebellum and brainstem are unremarkable. The cerebellar pontine angles are normal. The craniovertebral junction is normal. The sella and suprasellar regions are normal. The orbits and retro-orbital regions are unremarkable. There is right carlos eduardo bullosa with mild nasal septal deviation to the left. The paranasal sinuses are clear. The mastoid air cells are clear. There is normal bone marrow signal in the skull base and calvarium. MRI/Brain without Contrast IMPRESSION: 1. Multiple foci of restricted diffusion in the right cerebral hemisphere cons istent with acute embolic infarctions. 2. Multiple chronic cortical and lacunar infarctions as described. 3. Cerebral atrophy. Reading Location: [place] [id number]
--- NOTE | 2025-02-25 11:24 | CASEMGMT ---
Update received by [facility] that they only have 1 Mcfp bed for a female currently. ADALBERTO CUNNINGHAM in to update . RN MARISA explained that WVM could take patient under her skilled level of care through her [facility] and then transitions her to LTC if needed and that could work with WVM to transition him as well if needed while his was receiving care and WVM could discuss options with . voiced understanding and states that [facility]VM is FOC and to proceed with skilled level of care at discharge. had ADALBERTO CUNNINGHAM speak with patient's daughter Lindsey to update regarding discharge plan, Lindsey agreeable to plan as well. and Lindsey had no further questions or concerns. ADALBERTO CUNNINGHAM updated Discharge Director Hospice Operations to update WVM that they are FOC and will have patient come under skilled LOC. CM will continue to follow this patient and plan for a safe discharge.
--- NOTE | 2025-02-25 12:57 | SP.MBSS_ITS ---
Modified Barium Swallow Patient Information Study Date: 02/25/25 Study Time: 12:30 Direct Billable Minutes: 108 Total Minutes procedure & reportin Diagnosis: Acute R MCA stroke I63.511 Referring Physician: Kobi Whitfield Reason for Referral: Assess swallow function, assess risk for aspiration, and determine recommendations for least restrictive diet textures and compensatory strategies to improve safety of swallow. 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 See EMR for full PMH. The patient presented w/ left-sided weakness and facial droop. Patient had history of CVA in December 2024, did receive TNK and was transferred to a [facility]. 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 Patient's daughter had noticed patient with a slight left facial droop 2 days prior to patient's admission. This was followed by subjective weakness involving the left lower extremity the following day. She did check up on her mom and found patient to have flaccid paralysis involving the left upper extremity necessitating patient being brought to the emergency department. Imaging studies obtained demonstrated a high-grade stenosis in the proximal M1 horizontal component of the right middle cerebral, measuring 0.5 cm in length. Call was placed for patient to have been transferred to [facility]. Patient's daughter however requested further transfer not to take place. Patient family wanted patient admitted at [facility]. ST consulted as part of CVA work up. BSE 02/25/2025 recommended NPO w/ plan for MBSS prior to diet advancement to further assess swallow function and aspiration risk. Brain MRI 02/25/2025 revealed, 1. Multiple foci of restricted diffusion in the right cerebral hemisphere consistent with acute embolic infarctions. 2. Multiple chronic cortical and lacunar infarctions as described. 3. Cerebral atrophy. Penetration-Aspiration Scale Penetration-Aspiration Scale: OBJECTIVE ASSESSMENT OF SWALLOW FUNCTION (QUANTITATIVE ? PER TRIAL): PENETRATION / ASPIRATION SCALE (EDGAR): 1 = does not enter airway 2 = enters airway/above vocal folds/ejected 3 = enters airway/above vocal folds/not ejected 4 = enters airway/contacts vocal folds/ejected 5 = enters airway/contacts vocal folds/not ejected 6 = enters airway/below vocal folds/ejected 7 = enters airway/below vocal folds/not ejected despite effort 8 = enters airway/below vocal folds/no effort VIDEOFLOROSCOPIC SCALE SCORE (EDGAR): Grade I = aspiration of material that has penetrated into the laryngeal vestibule, intact cough reflex Grade II = aspiration < 10 % of the bolus, intact cough reflex Grade III = aspiration of < 10 % of the bolus, reduced cough reflex or aspiration of > 10 % of the bolus, intact cough reflex Grade IV = aspiration of > 10 % of the bolus, reduced cough reflex Penetration-Aspiration Scale Score Thin Liquid via teaspoon: Result: 2= enter airway/above vocal folds/ejected Thin Liquid via teaspoon Trial 2: Result: 2= enter airway/above vocal folds/ejected Thin Liquid via small single sip: cup: Result: 1= does not enter airway Comment: Very small sip, <1 tsp. Thin Liquid via single sip: straw: Result: 7= enters airways/below vocal folds/not ejected despite effort Comment: Initially, pt scored PAS of 1; however, coughing occurred after fluoroscopy was turned off. Prior to next trial trace barium was in the trachea, likely aspiration of pharyngeal residues of previous trial. Thin Liquid via single sip: straw Trial 2: Result: 1= does not enter airway [place] Thick Liquid via small single sip: cup: Result: 5= enters airways/contacts vocal folds/not ejected [place] Thick Liquid via teaspoon: Result: 2= enter airway/above vocal folds/ejected [place] Thick Liquid via teaspoon Trial 2: Result: 2= enter airway/above vocal folds/ejected Pudding via teaspoon: Result: 1= does not enter airway Comment: Esophageal screen - Esophageal screen - Retention in the middle and lower esophagus. [place] Thick Liquid via teaspoon Trial 3: Result: 2= enter airway/above vocal folds/ejected Comment: Esophageal screen - Liquid wash had cleared majority of pudding from the middles esophagus. Some barium retention in the lower esophagus. Discontinued study due to poor attention to task Oral Phase Labial Seal: Escape beyond mid-chin Tongue Control During Bolus Hold: Posterior escape of greater than half of bolus Bolus Transport/Lingual Motion: Repetitive/disorganized tongue motion Oral Residue: Residue collection on oral structures Pharyngeal Phase Initiation of Pharyngeal Swallow: Bolus head in valleculae Soft Palate Elevation: Trace column of contrast/air between soft palate and pharyngeal wall Laryngeal Elevation: Partial superior movement thyroid cart/partial apprx aryt- epig petiole Anterior Hyoid Excursion: Partial anterior movement Epiglottic Movement: Partial inversion Laryngeal Vestibule Closure at Height of Swallow: Incomplete; narrow column of air/contrast in laryngeal vestibule Pharyngeal Stripping Wave: Present - diminished Pharyngoesophageal Segment Opening: Complete distension and complete duration; no obstruction of flow Tongue Base Retraction: Narrow column of contrast between tongue base & post. pharyngeal wall Pharyngeal Residue: Collection of residue within or on pharyngeal structures Esophageal Phase Esophageal Clearance: Esophageal retention Diagnosis/Impression Diagnosis: Moderate oropharyngeal dysphagia R13.12; Esophageal dysphagia R13.14 Impression: The oral phase is primarily marked by... -Unilaterally weak labial seal w/ anterior loss of liquids. -Lingual pumping for A-P transport. -Pt's attention to task worsened as the evaluation progressed, so MOTOR VEHICLE LICENCE EXAMINER held solid trials. At bedside earlier today, pt consumed ~1/4 cookie w/ MOTOR VEHICLE LICENCE EXAMINER present w/ verbal cues required to attend to the trial and verbal cues required to chew and swallow. Pt had anterior loss of portion of cookie at bedside, as well. Of note, during the MBSS, the MOTOR VEHICLE LICENCE EXAMINER provided the patient a foam pad to hold in attempt to reduce fidgeting; however, pt attempted to bite into foam pad. MOTOR VEHICLE LICENCE EXAMINER removed the pad from the pt's mouth w/o pt biting a piece off. The pharyngeal phase is primarily marked by... -Decreased pharyngeal motility w/ decreased TB retraction and pharyngeal stripping wave w/ resulting mild pharyngeal residues. -Decreased airway closure due to decrease anterior hyoid excursion, laryngeal elevation, and inconsistent epiglottic inversion. -Aspiration of thin liquids after the swallow w/ reflexive coughing that did not fully expel aspirated contrast. Deep laryngeal penetration of mildly/nectar thick liquids by cup to the vocal folds w/o complete ejection. The esophageal phase is primarily marked by... -Retention of pudding in the middle and lower esophagus. Liquid wash mostly cleared barium from the middle esophagus. Continued retention of barium in the lower esophagus. Recommendations Diet: Puree Textures and Mildly Thick Liquids Compensatory Strategies: Small Bites, Liquid by Teaspoon Only, Slow Rate, Alternate bites/solids and sips/liquids and Sitting upright (During and 60min after po intake) Recommend Repeat Modified Barium Swallow: Yes (Repeat MBSS in 1-3 weeks to re- assess swallow function and aspiration risk to consider diet advancement.) Need for Skilled Speech Therapy Services: Yes Comment: -Train staff and family in use of strategies to decrease risk for aspiration and reflux aspiration. -Ongoing assessment of diet tolerance of recommended textures. Ok to trial minced and moist (IDDSI Level 5) or soft and bite size (IDDSI Level 6) solids w/ MOTOR VEHICLE LICENCE EXAMINER in upcoming sessions to consider diet advancement, especially if improved attention to task. -If pt is able to follow commands, train the patient in oropharyngeal exercise program (effortful swallow, lingual resistance, Chanel). Recommended Referrals: GI Consult (No immediate GI consult required as liquid wash appeared to clear much of the pudding retention in the esophagus; however, would consider the patient for OP GI consult) Education Completed: 1. Described result of evaluation., 4. Family/caregivers understand evaluation & agree w/ goals & tx plan. and 7. Pt requires further education on strategies & risks. Status Active ST Patient: Active Contact Information [facility] Speech Therapy:: Promise Craft M.A. CCC-MOTOR VEHICLE LICENCE EXAMINER? Speech-Language Pathologist?? [facility] [address] [place] [address]? [email or web address]?? [phone]
--- NOTE | 2025-02-25 13:15 | CASEMGMT ---
Social Work Pt positive for stroke, however, due to dementia and A&Ox1, PHQ9 not completed. KECIA Phan
--- NOTE | 2025-02-25 14:11 | CASEMGMT ---
Addendum entered by Missy Mckeon 02/25/25 15:54: ADALBERTO CUNNINGHAM updated hospitalist regarding auth for [facility], discharge planned for tomorrow. ADALBERTO CUNNINGHAM udpated WVM, GREEN SHEET ON CHART. ADALBERTO CUNNINGHAM updated regarding acceptanc and auth to [facility]. voiced appreciation and had no further questions or concerns. Addendum entered by Missy Mckeon 02/25/25 14:58: ADALBERTO CUNNINGHAM received call back from Gloria at [facility] with auth for Precert to [facility]. Auth#[id number], valid 02/25-02/27/25. ADALBERTO CUNNINGHAM updated WVM and hospitalist. Original Note: ADALBERTO CUNNINGHAM called and faxed [facility] requesting precert for SNF [facility] at discharge. ADALBERTO CUNNINGHAM spoke with Cris and requested precert be expedited as patient is medically ready for discharge. ADALBERTO CUNNINGHAM provided called back information. CM jelena continue to follow this patient and plan for a safe discharge.
[2025-02-25] MEDS: Memantine Hydrochloride 10 MG Tablet PO ×2 (14:25→22:49)
--- NOTE | 2025-02-25 16:34 | CASEMGMT ---
Social Work PASRR completed in [facility] for SNF placement. KECIA Fowler
[2025-02-26] VITALS (14 sets, daily range): BP systolic 154–195; BP diastolic 61–87; PULSE 75–97; RESP 15–18; TEMP 36.3–37.1; O2SAT 95–98
[2025-02-26] MEDS: 0.9% Saline Lock 10 ML Syringe IV (00:23)
[2025-02-26] MEDS: 0.9% Normal Saline (1000mL) 1,000 ML 125 ML IV ×2 (05:18→13:23)
[2025-02-26 05:36] LABS: Hematocrit 31.1 % (37-47); Hemoglobin 10.5 g/dL (12.0-15.0); Immature Granulocytes Count 0.060 X10^3/uL (0.0-0.0); Mean Corp Hgb Conc 33.8 g/dL (32-36); Mean Corpuscular Volume 86.1 fL (81-99); Mean Platelet Vol. 10.4 fl (6.2-12.0); NRBC Flagged by Analyzer 0 % (0-5); Platelet Count 375 K/mm3 (150-450); RBC Distribution Width CV 14.3 % (11.6-14.6); RBC Distribution Width SD 45.4 fl (35.1-43.9); Red Blood Count 3.61 M/mm3 (4.2-5.4); White Blood Count 15.0 K/mm3 (4.4-11.0)
[2025-02-26 06:26] LABS: Anion Gap 15 (5-15); BUN 4 mg/dL (4-19); BUN/Creat Ratio 9.0 RATIO (10-20); Calcium,Total 8.9 mg/dL (7.6-11.0); Carbon Dioxide 18.5 mmol/L (21.0-32.0); Chloride 101 mmol/L (98-108); Estimated Creatinine Clearance 50.95 ml/min (50-250); Glucose 120 mg/dL (70-99); Potassium 2.8 mmol/L (3.3-5.1)
--- NOTE | 2025-02-26 07:38 | CASEMGMT ---
Social Work PHQ-9 not completed on this date as pt is not alert and oriented at this time. JADE Rose
[2025-02-26] MEDS: Potassium Chloride Oral Soln 20 MEQ/15 ML UDC 40 MEQ PO (09:58)
[2025-02-26] MEDS: Memantine Hydrochloride 10 MG Tablet PO (09:58)
[2025-02-26] MEDS: Potassium Chloride 10mEq/100mL 10 MEQ/100 ML IV.SOLN. 100 MEQ IV BOLUS ×4 (10:06→13:22)
--- NOTE | 2025-02-26 10:45 | DS.PCM_ITS ---
Providers Date of Admission: 02/24/25 Primary Care Physician: Dr. Citlaly Barron MD Consultations 02/24/25 13:56 Consult: Tele-Neurology Routine Consulting Provider: [facility] Reason for Consult: Acute Ischemic Stroke/TIA EMERGENT Consult: No MD Notified: Yes Date Notified: 02/24/25 Time Notified: 14:14 Method of Notification: Answering Service Nursing Unit Staff Notify [facility] of Tele-Neurology Consult: Yes Reason For Visit: LEFT FACIAL DROOP Diagnosis Discharge Diagnosis (1) Acute right MCA stroke: Status: Acute Code(s): I63.511 - Cerebral infarction due to unspecified occlusion or stenosis of right middle cerebral artery Plan Patient is a 79-year-old female presenting with left-sided weakness 1. Acute CVA ? Patient presented with left facial droop with left-sided weakness. Imaging studies obtained in the ED did show a high-grade stenosis in the proximal M1 horizontal component of the right middle cerebral, measuring 0.5 cm in length. Patient was accepted for transfer to [facility] regarding her large vessel occlusion for intervention patient family however declined for patient to be transferred. Patient admitted to a monitored bed requested for PT/OT/ST evaluation. Patient started on antiplatelet therapy with aspirin as well as atorvastatin. 2D echo and an MRI ordered as part of patient's evaluation. Consult placed to [facility]. Patient was not a candidate for TNK given the fact that her last known well is unknown ? 02/25/2025; patient scheduled to undergo cookie swallow and MRI 02/26/2025; MRI 1. Multiple foci of restricted diffusion in the right cerebral hemisphere consistent with acute embolic infarctions. 2. Multiple chronic cortical and lacunar infarctions as described. 3. Cerebral atrophy. [facility] for patient to be discharged on high-dose statin therapy aspirin as well as Plavix (patient daughter initially was against her mom receiving Plavix however patient's did agree for Plavix to be given after discussion with [facility]) 2D echo ?Mild concentric left ventricular hypertrophy. Mild inferior hypokinesis. Septal wall motion consistent with left bundle branch block. Estimated LVEF 55%. Stage I diastolic dysfunction. Mild (1+) aortic valve insufficiency. #2. Previous CVA ? Patient did receive TNK and transferred to [facility] where no intervention was done regarding her high-grade stenosis in the proximal M1?right MCA 3. Essential hypertension ? Will proceed permissive hypertension protocol 4. Depression with anxiety ? Patient is on fluoxetine as well as buspirone 5. Dementia ? Patient is on memantine 10 mg twice daily will resume once home meds have been reconciled 6. Anemia ? Secondary to chronic disorder monitoring H&H and transfuse if patient becomes symptomatic or hemoglobin falls below 7 7. DVT prophylaxis ? Subcu Lovenox Time spent in the patient's overall evaluation,decision-making process, review of diagnostic data, adjustment of management, discussion with other providers, nursing nursing and ancillary staff involved in patient's care documentation, 38 Minutes Medications at Discharge Home Medications fluoxetine 40 mg capsule 60 mg PO DAILY anxiety 10/17/21 multivitamin 1 tab PO DAILY suppliment 10/17/21 buspirone 10 mg tablet 10 mg PO TID mood 02/28/24 melatonin 10 mg capsule 10 mg PO QHS PRN sleep 02/28/24 memantine 10 mg tablet 10 mg PO BID memory 02/28/24 polyethylene glycol 3350 17 gram/dose oral powder (ClearLax) 17 g PO DAILY PRN constipation 03/08/24 sennosides 8.6 mg tablet (Evac-U-Gen (sennosides)) 17.2 mg PO BID PRN constipation 03/08/24 gabapentin 100 mg capsule 100 mg PO TID PRN PRN for pain 12/18/24 losartan 25 mg tablet 25 mg PO DAILY bp 12/18/24 trazodone 50 mg tablet 50 mg PO QHS sleep 12/18/24 aspirin 81 mg chewable tablet 1 tab PO DAILY suppliment 02/24/25 atorvastatin 40 mg tablet 40 mg PO QHS cholesterol 02/24/25 fluoxetine 20 mg capsule 60 mg PO DAILY depression 02/24/25 primidone 50 mg tablet (Mysoline) 25 mg PO QHS sleep/tremmors 02/24/25 clopidogrel 75 mg tablet (Plavix) 75 mg PO DAILY #90 tabs 02/26/25 potassium chloride 20 mEq tablet,extended release(part/cryst) 20 meq PO DAILY #30 tabs 02/26/25 Hospital Course Summary of Care Provided Minutes Spent on Discharge: 35 Physical Exam Narrative GENERAL: Dysarthric HEENT: Atraumatic; normocephalic EYES; Anicteric, Normal Conjunctiva NECK; supple, normal thyroid, RESPIRATORY: Diminished to auscultation CARDIOVASCULAR: Regular S1 S2, GI: soft, normoactive bowel sounds, : No Renal angle tenderness; EXTREMITIES: No edema, no clubbing, MUSCULOSKELETAL: no muscle wasting NEURO: Awake; left facial droop with flaccid paralysis involving the left upper extremity SKIN: No Rash PSYCH; Flat affect Weight / BMI Weight Weight: 56.6 kg Body Mass Index (BMI) 20.0 ABG / Lab / Microbiology Data 02/26/25 04:51 02/26/25 04:51 Laboratory: Laboratory Results - last 24 hr 02/26/25 04:51: WBC 15.0 H, RBC 3.61 L, Hgb 10.5 L, Hct 31.1 L, MCV 86.1, MCH 29.1, MCHC 33.8, RDW Std Deviation 45.4 H, RDW Coeff of Shon 14.3, Plt Count 375, MPV 10.4, Immature Gran % (Auto) 0.400, Neut % (Auto) 80.5 H, Lymph % (Auto) 10.1 L, [place] % (Auto) 8.5, Eos % (Auto) 0.1, Baso % (Auto) 0.4, Absolute Neuts (auto) 12.1 H, Absolute Lymphs (auto) 1.52, Nucleated RBC % 0, Sodium 135, P otassium 2.8 L, Chloride 101, Carbon Dioxide 18.5 L, Anion Gap 15, BUN 4, C reatinine 0.50 L, Estim Creat Clear Calc 50.95, Est GFR (MDRD) Non-Af 96, B UN/Creatinine Ratio 9.0 L, Glucose 120 H, Calcium 8.9 Radiography Diagnostic Testing: Radiology Impression Echocardiogram 02/24/25 12:25 Interpretation Summary Mild concentric left ventricular hypertrophy. Mild inferior hypokinesis. Septal wall motion consistent with left bundle branch block. Estimated LVEF 55%. Stage I diastolic dysfunction. Mild (1+) aortic valve insufficiency. Ordering Physician: Kobi Whitfield Referring Physician: CITLALY BARRON Performed By: Ivana Ramos RDCS Brain MRI 02/25/25 10:55 IMPRESSION: 1. Multiple foci of restricted diffusion in the right cerebral hemisphere consistent with acute embolic infarctions. 2. Multiple chronic cortical and lacunar infarctions as described. 3. Cerebral atrophy. Reading Location: [place] [address] D/C Instructions DC O2, CPAP, BIPAP Needs Home O2 Discharge instructions: No Meaningful Use Info Meaningful Use Meaningful Use Diagnoses (Choose all that apply): Ischemic CVA CVA Therapy Assessed for PT,OT and/or ST?: Yes Ischemic Stroke Antithrombotic order at d/c?: Yes Dx of Atrial fib/flutter?: No Statins at discharge?: Yes Primary Dx Acute Ischemic CVA?: Yes IV thrombolytic ordered during stay?: No Reason IV thrombolytic not ordered: Treatment not Indicated Discharge Plan Admission Admit Date/Time: 02/24/25 12:15 Attending Provider: Kobi Whitfield Primary Care Provider: Citlaly Barron Consulting Providers: Fabrice Trevizo; Le Noble; Sandy Eugene; Marva Mattson; Salud Sinclair; Richard Lemos; Mary Kay Patel; Zac Mares; Derrell Bahena; Donny Cowan; Teresa Marcelino; Krzysztof Mauro; Marga Lam; Nathanael Walker; Steff Peñaloza; Damon Andres; Lesia Montague; Billy Alexander; Anila Tejada; Ramon Doyle Discharge Orders/Prescriptions Prescriptions: New potassium chloride 20 mEq tablet,ER particles/crystals 20 meq PO DAILY Qty: 30 0RF clopidogrel [Plavix] 75 mg tablet 75 mg PO DAILY Qty: 90 0RF Continued fluoxetine 40 mg capsule 60 mg PO DAILY Patient Comments: TAKE 1 CAPSULE BY MOUTH ONCE DAILY multivitamin Tablet 1 tab PO DAILY aspirin 81 mg tablet,chewable 1 tab PO DAILY atorvastatin 40 mg tablet 40 mg PO QHS fluoxetine 20 mg capsule 60 mg PO DAILY primidone [Mysoline] 50 mg tablet 25 mg PO QHS buspirone 10 mg tablet 10 mg PO TID memantine 10 mg tablet 10 mg PO BID melatonin 10 mg capsule 10 mg PO QHS PRN (Reason: sleep) sennosides [Evac-U-Gen (sennosides)] 8.6 mg tablet 17.2 mg PO BID PRN (Reason: constipation) polyethylene glycol 3350 [ClearLax] 17 gram/dose powder 17 g PO DAILY PRN (Reason: constipation) trazodone 50 mg tablet 50 mg PO QHS gabapentin 100 mg capsule 100 mg PO TID PRN PRN (Reason: for pain) losartan 25 mg tablet 25 mg PO DAILY Referrals / Follow Up: Citlaly Barron MD [Primary Care Provider] - Disposition Disposition (needs filled in before D/C Order can be placed): [facility] Charges/Coding Visit Charges Inpatient E&M: 84536 Disch Hosp >30min
--- NOTE | 2025-02-26 10:58 | TREXTCAR_ITS ---
Diet Diet Order/Speech Therapy: INPATIENT Hospital Diet / Speech Therapy Order(s) 02/25/25 13:17 Diet: Regular - General Food consistency:: Pureed Liquid Consistency:: [place]/Mildly Thick Speech Therapy Comments: TOTAL FEED, Liquid by tsp only, Meds crushed in DC O2, CPAP, BIPAP needs Home O2 Discharge instructions: No Problem/Diagnosis (1) Acute right MCA stroke: Status: Acute Code(s): I63.511 - Cerebral infarction due to unspecified occlusion or stenosis of right middle cerebral artery Plan Patient is a 79-year-old female presenting with left-sided weakness 1. Acute CVA ? Patient presented with left facial droop with left-sided weakness. Imaging studies obtained in the ED did show a high-grade stenosis in the proximal M1 horizontal component of the right middle cerebral, measuring 0.5 cm in length. Patient was accepted for transfer to [facility] regarding her large vessel occlusion for intervention patient family however declined for patient to be transferred. Patient admitted to a monitored bed requested for PT/OT/ST evaluation. Patient started on antiplatelet therapy with aspirin as well as atorvastatin. 2D echo and an MRI ordered as part of patient's evaluation. Consult placed to [facility]. Patient was not a candidate for TNK given the fact that her last known well is unknown ? 02/25/2025; patient scheduled to undergo cookie swallow and MRI 02/26/2025; MRI 1. Multiple foci of restricted diffusion in the right cerebral hemisphere co nsistent with acute embolic infarctions. 2. Multiple chronic cortical and lacunar infarctions as described. 3. Cerebral atrophy. [facility] for patient to be discharged on high-dose statin therapy aspirin as well as Plavix (patient daughter initially was against her mom receiving Plavix however patient's did agree for Plavix to be given after discussion with [facility]) 2D echo ?Mild concentric left ventricular hypertrophy. Mild inferior hypokinesis. Septal wall motion consistent with left bundle branch block. Estimated LVEF 55%. Stage I diastolic dysfunction. Mild (1+) aortic valve insufficiency. #2. Previous CVA ? Patient did receive TNK and transferred to [facility] where no intervention was done regarding her high-grade stenosis in the proximal M1?right MCA 3. Essential hypertension ? Will proceed permissive hypertension protocol 4. Depression with anxiety ? Patient is on fluoxetine as well as buspirone 5. Dementia ? Patient is on memantine 10 mg twice daily will resume once home meds have been reconciled 6. Anemia ? Secondary to chronic disorder monitoring H&H and transfuse if patient becomes symptomatic or hemoglobin falls below 7 7. DVT prophylaxis ? Subcu Lovenox Time spent in the patient's overall evaluation,decision-making process, review of diagnostic data, adjustment of management, discussion with other providers, nursing nursing and ancillary staff involved in patient's care documentation, 38 Minutes Allergies/Procedures Done in Hospital Allergies No Known Allergies Allergy (Verified 02/24/25 09:29) Type of Care/Length of Stay Estimated LOS: Convalescent Care Less Than 30 days Type of Care Needed: Skilled Rehab Potential: Good Prognosis: Good Additional Orders/Day of Discharge Day of Discharge: 02/26/25 Dietary and Speech Recommendations Dietitian Recommendations/Changes: Recommend advanced diet as tolerate to cardiac per PRECISION ASSEMBLY INSPECTOR recommendations. PO needs to be established. Will monitor weight trends. Discharge Plan Admission Admit Date/Time: 02/24/25 12:15 Attending Provider: Kobi Whitfield Primary Care Provider: Kerwin العراقي Consulting Providers: Fabrice Trevizo; Le Noble; Sandy Eugene; Marva Mattson; Salud Sinclair; Richard Lemos; Mary Kay Patel; Zac Mares; Derrell Bahena; Donny Cowan; Teresa Marcelino; Krzysztof Mauro; Marga Lam; Nathanael Walker; Steff Peñaloza; Damon Andres; Lesia Montague; Blily Alexander; Anila Tejada; Ramon Doyle Discharge Orders/Prescriptions Prescriptions: New potassium chloride 20 mEq tablet,ER particles/crystals 20 meq PO DAILY Qty: 30 0RF clopidogrel [Plavix] 75 mg tablet 75 mg PO DAILY Qty: 90 0RF Continued fluoxetine 40 mg capsule 60 mg PO DAILY Patient Comments: TAKE 1 CAPSULE BY MOUTH ONCE DAILY multivitamin Tablet 1 tab PO DAILY aspirin 81 mg tablet,chewable 1 tab PO DAILY atorvastatin 40 mg tablet 40 mg PO QHS fluoxetine 20 mg capsule 60 mg PO DAILY primidone [Mysoline] 50 mg tablet 25 mg PO QHS buspirone 10 mg tablet 10 mg PO TID memantine 10 mg tablet 10 mg PO BID melatonin 10 mg capsule 10 mg PO QHS PRN (Reason: sleep) sennosides [Evac-U-Gen (sennosides)] 8.6 mg tablet 17.2 mg PO BID PRN (Reason: constipation) polyethylene glycol 3350 [ClearLax] 17 gram/dose powder 17 g PO DAILY PRN (Reason: constipation) trazodone 50 mg tablet 50 mg PO QHS gabapentin 100 mg capsule 100 mg PO TID PRN PRN (Reason: for pain) losartan 25 mg tablet 25 mg PO DAILY Referrals / Follow Up: Kerwin العراقي MD [Primary Care Provider] - Disposition Disposition (needs filled in before D/C Order can be placed): [facility]
--- NOTE | 2025-02-26 16:56 | NURSING ---
Report given to Aristeo Sylvester nurse, all questions and concerns answered
== END 2025-02-26 18:28 | disposition skilled nursing facility (03) | DRG 65 ==
LOC: ED 12:24 → PCU 12:30
PROVIDERS: Admitting Provider Internal Medicine; Emergency Provider Emergency Medicine; PCP Family Medicine; Visit Provider Internal Medicine
DX: I63.511 Cerebral infarction due to unspecified occlusion or stenosis of right middle cerebral artery (principal); G81.04 Flaccid hemiplegia affecting left nondominant side; Z66 Do not resuscitate; F03.90 Unspecified dementia, unspecified severity, without behavioral disturbance, psychotic disturbance, mood disturbance, and anxiety; I10 Essential (primary) hypertension; F32.A Depression, unspecified; D63.8 Anemia in other chronic diseases classified elsewhere; E78.5 Hyperlipidemia, unspecified; F41.9 Anxiety disorder, unspecified; R29.810 Facial weakness; R29.708 NIHSS score 8; R29.709 NIHSS score 9; Z79.02 Long term (current) use of antithrombotics/antiplatelets; Z79.82 Long term (current) use of aspirin; Z79.899 Other long term (current) drug therapy; Z86.73 Personal history of transient ischemic attack (TIA), and cerebral infarction without residual deficits
CPT/HCPCS: 36415; 70450; 70496; 70498; 70551; 74230; 80048; 80061; 82962; 83735; 84100; 84484; 85025; 85610; 85730; 90471; 92507; 92610; 92611; 93005; 93306; 94762; 97162; 97166; 97530; 97535; 99285; Q9967; A4216

== ENCOUNTER 2025-05-29 20:44 | Emergency (ER) | payer MEDICARE, SELFPAY ==
[2025-05-29 20:48] VITALS: BP 131/79; PULSE 80; RESP 15; TEMP 36.8; O2SAT 97; BMI 18.8
--- OUTSIDE RECORDS SUMMARY | 2025-05-29 21:22 | XMS RPT_ITS | CCD ---
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 Citlaly العراقي MD Primary Care Provider [phone] Dr. Lopez Alejandra DO Emergency Provider Provider Tejas RICH Unavailable Unavailable ANALI RICKS Referring Unavailable CITLALY العراقي Primary Care Unavailable CITLALY العراقي Primary Care Unavailable SAJI RIVERA Attending Unavailable LOPEZ ALEJANDRA Referring Unavailable ANJALI MCKEON Admitting Unavailable Dr. Lopez Alejandra DO Attending Provider Dr. Mir Galindo DO Emergency Provider [phone] Dr. Mir Galindo DO Attending Provider Dr. Jared James DO Emergency Provider Dr. Tabitha Whitfield MD Admit Provider Unavailable Dr. Tabitha Whitfield MD Attending Provider UnavailDr. Tabitha Lofton MD Other Provider Unavailable Fabrice Trevizo MD Other Provider Unavailable Dr. Le Noble MD Other Provider [phone] Sandy Eugene MD Other Provider Unavailable Dr. Marva Mattson DO Other Provider Dr. Salud Sinclair MD Other Provider [phone] Richard Lemos MD Other Provider Jorge RICH, Dr. Muñiz Other Provider Suzan RICH, Dr. Frank Other Provider [phone] Josef RICH, Dr. Dove Other Provider Chapo RICH, Dr. Hines Other Provider Ryland RICH, Teresa Other Provider Nj RICH, Dr. Blankenship Other Provider Genaro RICH, Dr. Gresham Other Provider [phone] Aaron RICH, Dr. Huffman Other Provider [phone] Jh RICH, Dr. Steff Callahan Other Provider [phone] Dmirty RICH, Dr. Jose Other Provider Eddi RICH, Dr. rGaf Other Provider [phone] Catherine RICH, Dr. Cervantes Other Provider [phone] Terrell RICH, Dr. High Other Provider Unavailable Yanira RICH, Ramon Other Provider Unavailable Markie RICH, Dr. Gorman Attending Provider JARED JAMES Referring Unavailable LOPEZ ALEJANDRA Referring Unavailable YUN JACKSON Attending Unavailabl e ELDERBROCK, CITLALY D Primary Care Unavailable NEYBRITTANYT HERMAN RICHARDS Attending Unavail able ELDERBROCK, CITLALY D Primary Care Unavailable ROSEMARIE SPEARS Attending Unavailable ELDERBROCK, CITLALY D Referring Unavailable ELDERBROCK, CITLALY D Primary Care Unavailable ELDERBROCK, CITLALY D Attending Unavailable ELDERBROCK, CITLALY D Primary Care Unavailable ELDERBROCK, CITLALY D Attending Unavailable ELDERBROCK, CITLALY D Primary Care Unavailable ELDERBROCK, CITLALY D Referring Unavailable ELDERBROCK, CITLALY D Primary Care Unavailable NEYHART RICHARDSHERMAN DUMAS Attending Unavail able ELDERBROCK, CITLALY D Primary Care Unavailable ELDERBROCK, CITLALY D Attending Unavailable ELDERBROCK, CITLALY D Primary Care Unavailable ELDERBROCK, CITLALY D Referring Unavailable ELDERBROCK, CITLALY D Primary Care Unavailable ELDERBROCK, CITLALY D Attending Unavailable ELDERBROCK, CITLALY D Primary Care Unavailable NEYHART RICHARDS, HERMAN Attending Unavail able CITLALY العراقي Primary Care Unavailable ROSEMARIE SPEARS Attending Unavailable CITLALY العراقي Primary Care Unavailable Dionicio Fong MD Attending Provider Unavaildago Fong MD, Dionicio Referring Provider UnavailDr. Citlaly Aguirre MD Referring Provider [phone] Yobany WHEELAGE CLERK-C, Cathy Attending Provider [phone] Bibi WHEELAGE CLERK-CJulia Attending Provider Hetal RICH, Dr. Greenberg Attending Provider Fabrice Trevizo Consulting Unavailable Tabitha Whitfield Attending Unavailable Malcom, Citlaly Primary Care Unavailable Tabitha Whitfield Admitting Unavailable Adeli, Amir Consulting Unavailable Hinduja, Sandy Consulting Unavailable Srinivasan, Marva Consulting Unavailable Zha, Salud Consulting Unavailable Aminta, Richard Consulting Unavailable Jorge, Mary Kay Consulting Unavailable Zac Mares Consulting Unavailable Derrell Bahena Consulting Unavailable Donny Cowan Consulting Unavailable Teresa Marcelino Consulting Unavailable Krzysztof Mauro Consulting Unavailable Marga Lam Consulting Unavailable RidNathanael wood Consulting Unavailable Jh, Mhd [place] Consulting UnavailDamon Neal Consulting Unavailable Lesia Montague Consulting Unavailable Billy Alexander Consulting Unavailable Anila Tejada Consulting Unavailable Ramon Doyle Consulting Unavailable Tabitha Whitfield Consulting Unavailable Cathy Haywood Attending Unavailable Citlaly العراقي Referring Unavailable Elderbro[place], Citlaly Primary Care Unavailable Elderleandra, Citlaly Primary Care Unavailable Mir Galindo Attending Unavailable Oleghe OLS, Efewongbe Attending Unavailabl e Elderbrock, Citlaly Primary Care Unavailable Oleghe OLS, Efewongbe Attending Unavailabl e Elder[place], Citlaly Primary Care Unavailable Olejelanie OLS Efgoldongbe Attending Unavailabl e Oleghe OLS Efewongbe Referring Unavailabl e [place], Citlaly Primary Care Unavailable Oleghe OLS Efparrisbe Attending Unavailabl e [place], Citlaly Primary Care Unavailable Oleghe OLS Efparrisbe Attending Unavailabl e [place], Citlaly Primary Care Unavailable Julia Mtz NP Attending Unavailable Elderbropedro, Citlaly Primary Care Unavailable [place], Citlaly Primary Care Unavailable Vita Aden Attending Unavailable Bibi WHEELAGE CLERK, Julia Attending Unavailable [facility], Citlaly Primary Care Unavailable [place]oston WHEELAGE CLERK, Julia Attending Unavailable [facility], Citlaly Primary Care Unavailable [facility], Citlaly Primary Care Unavailable Oleghe, Efewongbe Attending Unavailable [place] WHEELAGE CLERK, Julia Attending Unavailable [place], Citlaly Primary Care Unavailable Oleghe, Efewongbe Attending Unavailable [facility], [facility]aly Primary Care Unavailable [place], Citlaly Primary Care Unavailable [place] WHEELAGE CLERK, Julia Attending Unavailable Oleghe OLS, Efewongbe Attending Unavailabl e [place], Citlaly Primary Care Unavailable Oleghe OLS, Efewongbe Attending Unavailabl e Oleghe OLS, Efewongbe Referring Unavailabl e [place], Citlaly Primary Care Unavailable Oleghe OLS, Efewongbe Attending Unavailabl e [place], Citlaly Primary Care Unavailable [place], Citlaly Primary Care Unavailable Oleghe OLS, Efewongbe Attending Unavailabl e [place], Citlaly Primary Care Unavailable Lopez Alejandra Attending Unavailable Tabitha Whitfield Attending Unavailable Tabitha Whitfield Admitting Unavailable [facility], Citlaly Primary Care Unavailable Fabrice Trevizo Consulting Unavailable Adeli, Amir Consulting Unavailable Hinduja, Sandy Consulting Unavailable Srinivasan, Marva Consulting Unavailable Zha, Salud Consulting Unavailable AmintaRichard burton Consulting Unavailable JorgeMary Kay cerda Consulting Unavailable Zac Mares Consulting Unavailable Derrell Bahena Consulting Unavailable Donny Cowan Consulting Unavailable Teresa Marcelino Consulting Unavailable Krzysztof Mauro Consulting Unavailable Marga Lam Consulting Unavailable Nathanael Walker Consulting Unavailable Jh, Steff Callahan Consulting UnavailDamon Neal Consulting Unavailable Lesia Montague Consulting Unavailable Billy Alexander Consulting Unavailable Anila Tejada Consulting Unavailable Ramon Doyle Consulting Unavailable Bibi WHEELAGE CLERK, Julia Attending Unavailable [facility], [place] [facility] Unavailable Medications Current Medications Medication Drug Class(es) Dates Sig (Normalized) Sig (Original) acetaminophen 500 mg oral tablet (20 sources) Start: 12-24-2021 take 2 tablets by mouth every six hours as needed for pain acetaminophen (TYLENOL EXTRA STRENGTH) 500 mg tablet Indications: Acute midline low back pain without sciatica Take 2 tablets by mouth every 6 hours as needed for pain. 12/24/2021 Active End: 11-15-2021 acetaminophen (TYLENOL) 325 mg cap Take by mouth. 11/15/2021 Discontinued Comment on above: Take by mouth. Take 2 tablets by [facility] every 6 hours as needed for pain. aspirin 81 mg chewable tablet (20 sources) Platelet Aggregation Inhibitor, Nonsteroidal Anti-inflammatory Drug Start: 02-24-2025 Aspirin 81 mg tablet,chewable Active 1 {tbl} PO DAILY February 24, 2025 12:00am suppliment Start: 12-22-2024 End: 01-21-2025 take 1 tablet by mouth once daily aspirin 81 mg chewable tablet 1 tablet by ORAL/FEEDING TUBE route once daily. 30 tablet 12/22/2024 Active Start: 10-17-2021 End: 03-08-2024 take 1 tablet by mouth once daily Aspirin (Aspir-81) 81 mg Tablet,Delayed Release (Dr/Ec) Discontinued 81 mg PO DAILY October 17, 2021 1:00am March 08, 2024 5:57am Start: 09-01-2006 End: 02-09-2024 ASPIRIN 81 MG TAB Take one(1 ) tablet daily. 0 09/01/2006 02/09/2024 Discontinued (Course of therapy completed) Comment on above: Take one(1) tablet d aily. atorvastatin 40 mg oral tablet (17 sources) HMG-CoA Reductase Inhibitor Start: take 1 tablet by mouth at bedtime Atorvastatin 40 mg tablet Active 40 mg PO AT BEDTIME February 24, 2025 12:00am cholesterol Start: 12-21-2024 End: 01-20-2025 take 1 tablet by mouth once daily at bedtime atorvastatin (LIPITOR) 40 mg tablet 1 tablet by ORAL/FEEDING TUBE route daily at bedtime. 30 tablet 12/21/2024 Active busPIRone hydrochloride 10 mg oral tablet (20 sources) Start: 10-31-2023 End: 06-08-2025 take 1 tablet by mouth three times daily Buspirone 10 mg tablet Active 10 mg PO THREE TIMES A DAY February 28, 2024 12:00am mood Start: 08-01-2023 End: 10-31-2023 take 1 tablet by mouth twice daily busPIRone (BUSPAR) 10 mg tablet Indications: Major depressive disorder, recurrent, in full remission (HCC) , Generalized anxiety disorder Take 1 tablet by mouth two times a day. 60 tablet 5 08/01/2023 10/31/2023 Discontinued Start: 12-30-2022 take 1 tablet by raisa th twice daily busPIRone (BUSPAR) 10 mg tablet Indications: Major depressive disorder, recurrent, in full remission (HCC) , Generalized anxiety disorder Take 1 tablet by mouth twice daily. 60 tablet 5 12/30/2022 Active Comment on above: Take 1 tablet by raisa th twice daily. Take 1 tablet by raisa th two times a day. Take 1 tablet by raisa th three times a day. cephalexin 500 mg oral capsule (3 sources) Cephalosporin Antibacterial Start: 06-25-20 End: 07-02-20 take 1 capsule by mouth twice daily cephALEXin (KEFLEX) 500 mg capsule Indications: Acute cystitis with hematuria Take 1 capsule by mouth two times a day for 7 days. 14 capsule 0 06/25/2023 07/02/2023 Active Comment on above: Take [address] [facility] two times a day for 7 days. clopidogrel 75 mg oral tablet (7 sources) P2Y12 Platelet Inhibitor Start: 02-27-20 take 1 tablet by mouth once daily Clopidogrel (Plavix) 75 mg tablet Active 75 mg PO DAILY 90 0 February 26, 2025 12:00am DAILY MULTIVITAMIN TAB (20 sources) Start: 09-01-19 DAILY MULTIVITAMIN TAB Take one(1) tablet daily. 0 09/01/2006 Suspended Start: 09-01-2006 DAILY MULTIVIT JUÁREZ TAB Take one(1) tablet daily. 0 09/01/2006 Active Comment on above: Take one(1) tablet d aily. estrogens, conjugated (assisted) 0.625 mg/ml vaginal cream (20 sources) Estrogen Start: 01-21-2022 End: 03-01-2024 conjugated estrogens (PREMARIN) vaginal cream Indications: Cystocele with prolapse Use 1 g vaginally two times a week. 42.5 g 1 07/22/2023 Active Start: 12-20-2020 End: 11-15-2021 conjugated estrogens (PREMAR IN) vaginal cream Indications: Cystocele with prolapse Use 1 g vaginally two times a week. 42.5 g 1 08/30/2021 11/15/2021 Discontinued Comment on above: Use 1 g vaginally tw o times a week. USE 1 GRAM VAGINALLY TWICE WEEKLY. FLUoxetine 20 mg oral capsule (20 sources) Serotonin Reuptake Inhibitor Start: 02-24-2025 take 3 capsules by mouth once daily Fluoxetine 20 mg capsule Active 60 mg PO DAILY February 24, 2025 12:00am depression Start: 08-01-2023 End: 06-04-2024 take 1 capsule by mouth once daily FLUoxetine (PROZAC) 20 mg capsule Indications: Major depressive disorder, recurrent, in full remission Take 1 capsule by mouth once daily. Take along with 40 mg pill for a total of 60 mg daily 90 capsule 3 06/04/2024 Active Start: 08-01-2023 End: 06-04-2024 take 1 capsule by mouth once daily FLUoxetine (PROZAC) 40 mg capsule Indications: Generalized anxiety disorder Take 1 capsule by mouth once daily. 90 capsule 3 06/04/2024 Active Start: 11-13-2021 End: 06-28-2022 take 1 capsule by mouth once daily FLUoxetine (PROZAC) 20 mg capsule Indications: Major depressive disorder, recurrent, in full remission (HCC) Take 1 capsule by mouth once daily. Take along with 40 mg pill for a total of 60 mg daily 90 capsule 3 06/28/2022 Active Start: 10-17-2021 Fluoxetine 40 mg capsule Active 60 mg PO DAILY October 17, 2021 1:00am anxiety Start: 10-25-2020 End: 06-22-2021 take 1 capsule by mouth once daily FLUoxetine (PROZAC) 20 mg capsule Indications: Major depressive disorder, recurrent, in full remission (HCC) Take 1 capsule by mouth once daily. Take along with 40 mg pill for a total of 60 mg daily 30 capsule 5 10/25/2020 06/22/2021 Discontinued Start: 10-11-2020 End: 06-28-2022 take 1 capsule by mouth once daily FLUoxetine (PROZAC) 40 mg capsule Indications: Generalized anxiety disorder Take 1 capsule by mouth once daily. 90 capsule 3 06/28/2022 Active Comment on above: Take 1 capsule by mo uth once daily. Take 1 capsule by mo uth once daily. Take along with 40 mg pill for a total of 60 mg daily gabapentin 100 mg oral capsule (20 sources) Anti-epileptic Agent Start: 08-12-2024 End: 04-04-2025 take 1 capsule by mouth three times daily as needed for pain Gabapentin 100 mg capsule Active 100 mg PO 3 TIMES DAILY NEEDED as needed for for pain December 18, 2024 12:00am lidocaine 0.05 mg/mg medicated patch (11 sources) Antiarrhythmic, Amide Local Anesthetic Start: 10-17-2021 Lidocaine (Lidoderm) 5 % adhesive patch,medicated Active 0 TOPICAL .COMPLEX 1 October 17, 2021 4:27am leave on most painful area for up to 12 hrs Start: 10-17-2021 End: 02-28-2024 Lidocaine (Lidoderm) 5 % adh esive patch,medicated Discontinued 0 TOPICAL .COMPLEX 1 0 October 17, 2021 1:00am February 28, 2024 3:45am leave on most painful area for up to 12 hrs losartan potassium 25 mg oral tablet (20 sources) Angiotensin 2 Receptor Jace Start: 07-16-2024 take 1 tablet by mouth once daily Losartan 25 mg tablet Active 25 mg PO DAILY December 18, 2024 12:00am bp melatonin 10 mg oral capsule (20 sources) Start: 02-28-2024 take 1 capsule by mouth at bedtime as needed for sleep Melatonin 10 mg capsule Active 10 mg PO AT BEDTIME as needed for sleep February 28, 2024 12:00am take 6 mg by mouth once daily at bedtime MELATONIN ORAL Take 6 mg by mouth daily at bedtime. Suspended take 6 mg by mouth once daily at bedtime MELATONIN ORAL Take 6 mg by mouth daily at bedtime. Active take 6 mg by mouth once daily at bedtime MELATONIN ORAL Take 6 mg by mouth daily at bedtime. 0 Active Comment on above: Take 6 mg by mouth d aily at bedtime. meloxicam 15 mg oral tablet (5 sources) Nonsteroidal Anti-inflammatory Drug Start: 2 End: 2 take 1 tablet by mouth once daily at mealtime meloxicam (MOBIC) 15 mg tablet Indications: Acute midline low back pain without sciatica Take 1 tablet by mouth once daily. With food. 30 tablet 2 12/24/2021 03/24/2022 Active Comment on above: Take 1 tablet by raisa th once daily. With food. memantine hydrochloride 10 mg oral tablet (20 sources) O-kufqmx-J-aspartate Receptor Antagonist Start: 4 End: 5 take 1 tablet by mouth twice daily Memantine 10 mg tablet Active 10 mg PO TWICE A DAY February 28, 2024 12:00am memory Start: 12-10-2023 End: 12-10-2023 take 1 tablet by mouth once daily memantine (NAMENDA) 10 mg tablet Take 1 tablet by mouth once daily. 60 tablet 2 12/10/2023 12/10/2023 Discontinued Start: 11-19-2023 End: 12-10-2023 memantine (NAMENDA) 5 mg tab let 1 tablet twice daily 180 tablet 1 11/19/2023 12/10/2023 Discontinued Start: 08-19-2023 End: 11-19-2023 memantine (NAMENDA) 5 mg tab let Take 1 tablet daily x1 week, then increase to 1 tablet twice daily 60 tablet 2 08/19/2023 11/19/2023 Discontinued Comment on above: Take 1 tablet daily x1 week, then increase to 1 tablet twice daily 1 tablet twice daily methocarbamol 500 mg oral tablet (18 sources) Muscle Relaxant Start: 5 take 1 tablet by mouth three times daily as needed methocarbamol (ROBAXIN) 500 mg tablet Indications: Chronic midline low back pain without sciatica Take 1 tablet by mouth three times a day as needed. 60 tablet 1 08/12/2024 Active Multivitamin (Multi-Vitamin) Tablet (4 sources) Start: 2 take 1 tablet by mouth once daily Multivitamin (Multi-Vitamin) Tablet Active 1 TABLET PO DAILY October 17, 2021 1:02am Start: 10-17-2021 Multivitamin ( Multi-Vitamin) Tablet Active 1 {tbl} PO DAILY October 17, 2021 1:00am multivitamin (MULTIPLE VITAM INS) tablet (20 sources) Start: 10-17-2021 multivitamin ( MULTIPLE VITAMINS) tablet Take by mouth. 10/17/2021 Suspended Start: 10-17-2021 multivitamin ( MULTIPLE VITAMINS) tablet Take by mouth. 10/17/2021 Active Start: 10-17-2021 End: 03-01-2024 multivitamin (MULTIPLE VITAM INS) tablet DAILY 0 10/17/2021 03/01/2024 Discontinued Start: 10-17-2021 multivitamin ( MULTIPLE VITAMINS) tablet Take by mouth. 0 10/17/2021 Active Start: 10-17-2021 multivitamin ( MULTIPLE VITAMINS) tablet DAILY 0 10/17/2021 Active Comment on above: Take by mouth. DAILY Multivitamin Tablet (7 sources) Start: 2 Multivitamin Tablet Active 1 {tbl} PO DAILY October 17, 2021 1:00am suppliment nirmatrelvir tablet 300 mg (150 mg x 2) and ritonavir tablet 100 mg in a dose pack (PAXLOVID) (2 sources) Start: 3 End: 3 nirmatrelvir tablet 300 mg (150 mg x 2) and ritonavir tablet 100 mg in a dose pack (PAXLOVID) Administer TWO pink nirmatrelvir 150 mg tablets and ONE white ritonavir 100 mg tablet for a total of three tablets twice daily. 30 tablet 0 06/26/2023 07/01/2023 Active Comment on above: Administer TWO pink nirmatrelvir 150 mg tablets and ONE white ritonavir 100 mg tablet for a total of three tablets twice daily. ondansetron 4 mg oral tablet (20 sources) Serotonin-3 Receptor Antagonist Start: 5 take 1 tablet by mouth every eight hours Ondansetron Hcl 4 mg tablet Active 4 mg PO Q8H March 21, 2025 12:00am Start: 03-11-2024 take 1 tablet by raisa th every eight hours as needed ondansetron (ZOFRAN) 4 mg tablet Take 4 mg by mouth every 8 hours as needed for nausea/vomiting. 03/11/2024 Active pantoprazole 40 mg delayed release oral tablet (20 sources) Proton Pump Inhibitor Start: 03-21-2025 take 1 tablet by mouth once daily Pantoprazole 40 mg tablet,delayed release (DR/EC) Active 40 mg PO daily March 21, 2025 12:00am Start: 03-08-2024 take 1 tablet by raisa th every twelve hours [address]op[address] (PROTONIX) 40 mg tablet Take 40 mg by mouth every 12 hours. 03/08/2024 Active polyethylene glycol 3350 15988 mg powder for oral solution (10 sources) Osmotic Laxative Start: 03-08-2024 Polyethylene Glycol 3350 (Clearlax) 17 gram/dose powder Active 17 g PO DAILY as needed for constipation March 08, 2024 12:00am microencapsulated potassium chloride 20 meq extended release oral tablet (7 sources) Start: 02-26-2025 take 1 tablet by mouth once daily Potassium Chloride 20 mEq tablet,ER particles/crystals Active 20 meq PO DAILY 30 0 February 26, 2025 12:00am primidone 50 mg oral tablet (17 sources) Anti-epileptic Agent Start: 02-24-2025 take 1 tablet by mouth at bedtime Primidone (Mysoline) 50 mg tablet Active 25 mg PO AT BEDTIME February 24, 2025 12:00am sleep/tremmors Start: 12-21-2024 End: 01-20-2025 take 0.5 tablet by mouth once daily at bedtime primidone (MYSOLINE) 50 mg tablet 0.5 tablets by ORAL/FEEDING TUBE route daily at bedtime. 15 tablet 12/21/2024 Active Sennosides (Evac-U-Gen (Sennosides)) 8.6 mg tablet (10 sources) Start: 03-08-2024 Sennosides (Ev ac-U-Gen (Sennosides)) 8.6 mg tablet Active 17.2 mg PO TWICE A DAY as needed for constipation March 08, 2024 12:00am Start: 03-08-2024 Sennosides (Ev ac-U-Gen (Sennosides)) 8.6 mg tablet Active 17.2 mg PO TWICE A DAY March 08, 2024 12:00am traMADol hydrochloride 50 mg oral tablet (12 sources) Opioid Agonist Start: 02-03-2025 End: 02-18-2025 take 1 tablet by mouth four times daily as needed for pain traMADol (ULTRAM) 50 mg tablet Indications: Chronic midline low back pain without sciatica Take 1 tablet by mouth four times a day as needed for pain for up to 15 days. 30 tablet 1 02/03/2025 02/18/2025 Active Start: 12-10-2024 End: 12-25-2024 take 1 tablet by mouth four times daily as needed for pain traMADol (ULTRAM) 50 mg tablet Indications: Chronic midline low back pain without sciatica Take 1 tablet by mouth four times a day as needed for pain for up to 15 days. 30 tablet 1 12/10/2024 12/25/2024 Active Start: 08-12-2024 End: 08-27-2024 take 1 tablet by mouth four times daily as needed for pain traMADol (ULTRAM) 50 mg tablet Indications: Chronic midline low back pain without sciatica Take 1 tablet by mouth four times a day as needed for pain for up to 15 days. 30 tablet 1 08/12/2024 08/27/2024 Active Start: 07-27-2024 End: 07-30-2024 take 1 tablet by mouth four times daily as needed for pain traMADol (ULTRAM) 50 mg tablet Indications: Fall, initial encounter Take 1 tablet by mouth four times a day as needed for pain for up to 3 days. 12 tablet 07/27/2024 07/30/2024 Active Start: 03-12-2024 End: 03-17-2024 take 1 tablet by mouth every six hours as needed for pain traMADol (ULTRAM) 50 mg tablet Indications: Compression fracture of L1 vertebra with routine healing, subsequent encounter Take 1 tablet by mouth every 6 hours as needed for pain for up to 5 days. 20 tablet 0 03/12/2024 03/17/2024 Active traZODone hydrochloride 50 mg oral tablet (20 sources) Serotonin Reuptake Inhibitor Start: 12-18-2024 take 1 tablet by mouth at bedtime Trazodone 50 mg tablet Active 50 mg PO AT BEDTIME December 18, 2024 12:00am sleep Start: 03-12-2024 End: 08-12-2024 take 1 tablet by mouth once daily at bedtime traZODone (DESYREL) 50 mg tablet Indications: Chronic insomnia Take 1 tablet by mouth daily at bedtime. 30 tablet 5 08/12/2024 Active Completed/Discontinued Medications Medication Drug Class(es) Dates Sig (Normalized) Sig (Original) acetaminophen 325 mg / HYDROcodone bitartrate 5 mg oral tablet (11 sources) Opioid Agonist Start: 10-31-2021 End: 02-28-2024 Hydrocodone-Acetami nophen 5-325 mg tablet Discontinued 1 {tbl} PO EVERY 6 HOURS as needed for pain 10 3 October 31, 2021February 28, 2024 3:45am Back pain Dorsalgia, unspecified Start: 10-31-2021 take 1 tablet by raisa th every six hours Hydrocodone-Acetaminophen Active 1 TABLE T PO EVERY 6 HOURS 10 3 March 23rd, 2022 8:50am acetaminophen 325 mg / oxyCODONE hydrochloride 5 mg oral tablet (10 sources) Opioid Agonist Start: 02-28-2024 End: 12-18-2024 Oxycodone-Acetaminophen (Percocet) 5-325 mg tablet Discontinued 1 {tbl} PO EVERY 6 HOURS as needed for pain 14 7 0 February 28, 2024 December 18, 2024 9:07pm Closed compression fracture of thoracic vertebra black cohosh extract 20 mg oral tablet (20 sources) Start: 07-08-2014 End: 12-30-2022 Black Cohosh 20 mg tab Take 1 tablet by mouth. 0 07/08/2014 12/30/2022 Discontinued Start: 07-08-2014 Black Cohosh 2 0 mg tab Take 1 tablet by mouth. 0 07/08/2014 Active Comment on above: Take 1 tablet by raisa . celecoxib 100 mg oral capsule (20 sources) Nonsteroidal Anti-inflammatory Drug Start: 4 End: take 1 capsule by mouth twice daily as needed for pain Celecoxib 100 mg capsule Discontinued 100 mg PO TWICE DAILY NEEDED as needed for pain March 08, 2024 12:00am December 18, 2024 9:06pm Start: 10-30-2021 End: 02-28-2024 take 1 capsule by mouth twice daily Celecoxib 100 mg capsule Discontinued 100 mg PO TWICE A DAY October 31, 2021 12:00am February 28, 2024 3:45am Comment on above: Take [address] [facility] twice daily. cetirizine hydrochloride 10 mg oral tablet (14 sources) Histamine-1 Receptor Antagonist Start: 2 End: 3 take 1 tablet by mouth once daily cetirizine (ZYRTEC) 10 mg tablet Take 1 tablet by mouth once daily. 0 12/24/2021 12/30/2022 Discontinued Comment on above: Take 1 tablet by raisa once daily. donepezil hydrochloride 5 mg oral tablet (20 sources) Start: 4 End: 4 take 1 tablet by mouth at bedtime Donepezil 5 mg tablet Discontinued 5 mg PO AT BEDTIME February 28, 2024 12:00am March 08, 2024 5:58am Start: 08-01-2023 End: 02-09-2024 take 1 tablet by mouth once daily at bedtime donepezil (ARICEPT) 5 mg tablet Take 1 tablet by mouth daily at bedtime. 30 tablet 5 08/01/2023 02/09/2024 Discontinued (Course of therapy completed) Start: 06-17-2023 take 1 tablet by raisa th once daily at bedtime donepezil (ARICEPT) 5 mg tablet Take 1 tablet by mouth daily at bedtime. 30 tablet 2 06/17/2023 Active Comment on above: Take 1 tablet by raisa th daily at bedtime. loratadine 10 mg oral tablet (20 sources) Start: 10-18-19 End: 03-08-20 take 1 tablet by mouth once daily Loratadine (Claritin) 10 mg Tablet Discontinued 10 mg PO DAILY October 17, 2021 1:00am March 08, 2024 5:58am Comment on above: Take by mouth. LORazepam 0.5 mg oral tablet (6 sources) Benzodiazepine Start: 02-18-20 End: 03-19-20 take 1 tablet by mouth every 30 days at bedtime as needed for anxiety LORazepam (ATIVAN) 0.5 mg Indications: Agitation , Dementia without behavioral disturbance (HCC) Take 1 tablet by mouth at bedtime as needed (Anxiety) for up to 30 days. 30 tablet 0 02/18/2024 03/12/2024 Discontinued (Discontinued by Patient) Start: 02-09-2024 End: 02-19-2024 take 1 tablet by mouth at bedtime as needed for anxiety LORazepam (ATIVAN) 0.5 mg Indications: Agitation Take 1 tablet by mouth at bedtime as needed (Anxiety) for up to 10 days. 10 tablet 0 02/09/2024 02/18/2024 Discontinued naproxen 500 mg oral tablet (20 sources) Nonsteroidal Anti-inflammatory Drug Start: 10-17-2021 End: 03-08-2024 take 1 tablet by mouth twice daily Naproxen 500 mg tablet Discontinued 500 mg PO TWICE A DAY February 28, 2024 12:00am March 08, 2024 5:59am Comment on above: TWICE A DAY omeprazole 20 mg delayed release oral capsule (18 sources) Proton Pump Inhibitor Start: 11-15-2021 End: 12-30-2022 take 1 capsule by mouth once daily before breakfast omeprazole (PRILOSEC) 20 mg capsule Indications: Lower abdominal pain , Nausea and vomiting, unspecified vomiting type Take 1 capsule by mouth daily before breakfast. 1/2 hr before meal. 30 capsule 1 11/15/2021 12/30/2022 Discontinued Comment on above: Take 1 capsule by mouth daily before [place] akfast. 1/2 hr before meal. tiZANidine 4 mg oral tablet (20 sources) Central alpha-2 Adrenergic Agonist Start: 10-23-2021 End: 02-28-2024 take 1 tablet by mouth three times daily Tizanidine 4 mg tablet Discontinued 4 mg PO THREE TIMES A DAY October 31, 2021 12:00am February 28, 2024 3:46am Comment on above: Take 1 tablet by mouth three times daily as needed (muscle spasms). Problems Active Problems Problem Classification Problem Date Documented Da te Episodic/Chronic Abdominal pain (1 source) Lower abdominal pain; Translations: [Lower abdominal pain, unspecified] Episodic Acute cerebrovascular disease (20 sources) Lacunar infarction; Translations: [Other cerebral infarction due to occlusion or stenosis of small artery] Onset: 4 06-17-2023 Chronic Acute posthemorrhagic anemia (10 sources) Acute posthemorrhagic anemia; Translations: [Acute posthemorrhagic anemia] 03-16-2024 Episodic Anxiety disorders (20 sources) Generalized anxiety disorder; Translations: [Generalized anxiety disorder] Onset: 7 09-01-2006 Chronic Complication of device; implant or graft (2 sources) Vaginitis; Translations: [Infection and inflammatory reaction due to other prosthetic device, implant and graft in genital tract, initial encounter] Episodic Delirium, dementia, and amnestic and other cognitive disorders (20 sources) Dementia; Translations: [Unspecified dementia without behavioral disturbance] Onset: 4 06-17-2023 Chronic Disorders of lipid metabolism (20 sources) Mixed hyperlipidemia; Translations: [Mixed hyperlipidemia] Onset: 8 10-05-2007 Chronic E Codes: Fall (12 sources) Fall; Translations: [Unspecified fall, initial encounter] 07-27-2024 Episodic Essential hypertension (3 sources) Hypertensive disorder; Translations: [Essential (primary) hypertension] Onset: 5 07-16-2024 Chronic Fluid and electrolyte disorders (12 sources) Hypokalemia; Translations: [Hypokalemia] Onset: 5 12-20-2024 Episodic Gastrointestinal hemorrhage (13 sources) Gastrointestinal hemorrhage; Translations: [Gastrointestinal hemorrhage, unspecified] Onset: 4 03-12-2024 Episodic Genitourinary symptoms and ill-defined conditions (3 sources) Vaginal pessary in situ; Translations: [Presence of urogenital implants] Onset: 5 10-27-2023 Chronic Late effects of cerebrovascular disease (6 sources) 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; Translations: [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] 03-21-2025 Chronic Malaise and fatigue (2 sources) Fatigue; Translations: [Other fatigue] Episodic Menopausal disorders (2 sources) Postmenopausal bleeding; Translations: [Postmenopausal bleeding] 04-18-2023 Chronic Miscellaneous mental health disorders (5 sources) Chronic insomnia; Translations: [Psychophysiologic insomnia] Onset: 4 03-12-2024 Chronic Mood disorders (20 sources) Recurrent major depression in full remission; Translations: [Major depressive disorder, recurrent, in full remission] Onset: 7 08-23-2015 Chronic Nausea and vomiting (14 sources) Nausea and vomiting; Translations: [Nausea with vomiting, unspecified] Onset: 5 Episodic Noninfectious gastroenteritis (11 sources) Inflammatory bowel disease; Translations: [Noninfective gastroenteritis and colitis, unspecified] 10-31-2021 Episodic Occlusion or stenosis of precerebral arteries (20 sources) Carotid artery occlusion; Translations: [Occlusion and stenosis of unspecified carotid artery] Onset: 9 11-29-2008 Chronic Osteoporosis (20 sources) Osteoporosis; Translations: [Age-related osteoporosis without current pathological fracture] Onset: 7 09-01-2006 Chronic Other aftercare (1 source) Post-discharge follow-up; Translations: [Encounter for follow-up examination after completed treatment for conditions other than malignant neoplasm] 01-04-2025 Episodic Other aftercare (1 source) Encounter for follow-up examination after completed treatment for conditions other than malignant neoplasm; Translations: [Hospital discharge follow-up] Onset: 05-27-202 5 Episodic Other circulatory disease (1 source) Elevated blood-pressure reading without diagnosis of hypertension; Translations: [Elevated blood-pressure reading, without diagnosis of hypertension] 04-14-2024 Episodic Other circulatory disease (9 sources) History of cerebrovascular accident; Translations: [Personal history of transient ischemic attack (TIA), and cerebral infarction without residual deficits] 01-24-2025 Episodic Other connective tissue disease (1 source) Pain in right heel; Translations: [Pain in right foot] 05-21-2021 Episodic Other connective tissue disease (16 sources) Monoparesis - leg; Translations: [Other symptoms and signs involving the musculoskeletal system] 02-24-2025 Episodic Other connective tissue disease (16 sources) Weakness of face muscles; Translations: [Facial weakness] 02-24-2025 Episodic Other connective tissue disease (16 sources) Muscle weakness of upper limb; Translations: [Other symptoms and signs involving the musculoskeletal system] 02-24-2025 Episodic Other ear and sense organ disorders (1 source) Hearing loss; Translations: [Unspecified hearing loss, unspecified ear] 04-22-2023 Chronic Other fractures (1 source) Compression fracture of lumbar spine; Translations: [Wedge compression fracture of first lumbar vertebra, subsequent encounter for fracture with routine healing] 03-12-2024 Episodic Other fractures (10 sources) Compression fracture of thoracic spine; Translations: [Wedge compression fracture of unspecified thoracic vertebra, initial encounter for closed fracture] 03-07-2024 Episodic Other gastrointestinal disorders (20 sources) Irritable bowel syndrome; Translations: [Irritable bowel syndrome without diarrhea] 09-01-2006 Chronic Other gastrointestinal disorders (1 source) Loose stool; Translations: [Other fecal abnormalities] Episodic Other hereditary and degenerative nervous system conditions (2 sources) Impaired cognition; Translations: [Mild cognitive impairment, so stated] Chronic Other hereditary and degenerative nervous system conditions (20 sources) Essential tremor; Translations: [Essential tremor] Onset: 5 12-20-2024 Chronic Other hereditary and degenerative nervous system conditions (1 source) Essential tremor; Translations: [Essential tremor] Onset: Chronic Other liver diseases (12 sources) Alkaline phosphatase raised; Translations: [Abnormal levels of other serum enzymes] 03-21-2025 Episodic Other liver diseases (1 source) Abnormal levels of other serum enzymes; Translations: [Abnormal levels of other serum enzymes] Onset: 5 Episodic Other nervous system disorders (10 sources) Cerebral edema; Translations: [Cerebral edema] Onset: 5 12-20-2024 Chronic Other nervous system disorders (1 source) Other chronic pain; Translations: [Chronic midline low back pain without sciatica] Onset: 5 Chronic Other nervous system disorders (10 sources) Neglect of left side of body; Translations: [Neurologic neglect syndrome] 12-18-2024 Episodic Other nutritional; endocrine; and metabolic disorders (20 sources) Obesity; Translations: [Obesity, unspecified] Onset: 8 10-05-2007 Chronic Other nutritional; endocrine; and metabolic disorders (1 source) Decrease in appetite; Translations: [Anorexia] Episodic Other nutritional; endocrine; and metabolic disorders (1 source) Weight loss; Translations: [Abnormal weight loss] Episodic Other upper respiratory disease (20 sources) Allergic rhinitis; Translations: [Allergic rhinitis, unspecified] 09-01-2006 Chronic Prolapse of female genital organs (20 sources) Cystocele; Translations: [Uterovaginal prolapse, unspecified] Onset: 5 Chronic Rehabilitation care; fitting of prostheses; and adjustment of devices (13 sources) Patient encounter status; Translations: [Encounter for fitting and adjustment of other specified devices] Chronic Residual codes; unclassified (3 sources) Restlessness and agitation; Translations: [Restlessness and agitation] 02-09-2024 Chronic Residual codes; unclassified (1 source) Restlessness and agitation; Translations: [Agitation] Onset: 4 Chronic Residual codes; unclassified (5 sources) Memory impairment; Translations: [Other amnesia] Episodic Residual codes; unclassified (4 sources) Amnesia; Translations: [Other amnesia] 04-22-2023 Episodic Residual codes; unclassified (1 source) Chill; Translations: [Chills (without fever)] 06-25-2023 Episodic Screening and history of mental health and substance abuse codes (20 sources) H/O: dementia; Translations: [Personal history of other mental and behavioral disorders] Onset: 5 12-20-2024 Episodic Spondylosis; intervertebral disc disorders; other back problems (20 sources) Acute low back pain; Translations: [Acute midline low back pain without sciatica] Onset: 2 Resolved: 2 Episodic Superficial injury; contusion (10 sources) Contusion of right knee; Translations: [Contusion of right knee, initial encounter] 03-07-2024 Episodic Transient cerebral ischemia (9 sources) Transient cerebral ischemia; Translations: [Transient cerebral ischemic attack, unspecified] 01-24-2025 Chronic Unclassified (1 source) Chronic midline low back pain without sciatica; Translations: [Chronic midline low back pain without sciatica] Onset: 5 Urinary tract infections (1 source) Acute cystitis; Translations: [Acute cystitis with hematuria] 06-25-2023 Episodic Past or Other Problems Problem Classification Problem Date Documented Da te Episodic/Chronic Diabetes mellitus without complication (4 sources) Prediabetes; Translations: [Prediabetes] Onset: 04-14-2024 10-31-2023 Episodic Immunizations and screening for infectious disease (3 sources) Needs influenza immunization; Translations: [Encounter for immunization] Onset: 04-14-2024 Episodic Other circulatory disease (1 source) Elevated blood-pressure reading, without diagnosis of hypertension; Translations: [Elevated blood pressure reading without diagnosis of hypertension] Onset: 04-14-2024 Episodic Other connective tissue disease (1 source) Facial weakness; Translations: [Facial weakness] Onset: 01-29-2025 Episodic Other non-traumatic joint disorders (20 sources) Shoulder joint pain; Translations: [Pain in unspecified shoulder] Onset: 09-01-2006 09-01-2006 Episodic Residual codes; unclassified (2 sources) Other amnesia; Translations: [Memory loss] Onset: 04-14-2024 Episodic Results Test Name Value Interpretation Reference Range Facility Absolute lymphocyte countOrd ered By: Dionicio Fong on 04-05-2025 Lymphocytes Auto (Unsp spec) [#/Vol] 1.22 10*3/uL 0.83-4.51 [facility] Absolute neutrophil countOrd ered By: Dionicio Fong on 04-05-2025 Neutrophils (Bld) [#/Vol] 5.1 10*3/uL 2.0-7.7 [facility] Anion gap in Serum or Plasma Ordered By: Dionicio Fong on 04-05-2025 Anion gap [Moles/Vol] 9 mmol/L 5-15 [facility] Automated lymphocyte count a s percentage of total leukocytesOrdered By: Dionicio Fong on 04-05-2025 Lymphocytes/100 WBC Auto (Unsp spec) 16.6 % Low 19-41 [facility] BUN/creatinine ratioOrdered By: Nataleeauroraamerica Fong on 04-05-2025 Urea nitrogen/Creatinine [Mass ratio] 16.5 mg/mg 10-20 [facility] Basophil percentageOrdered B y: Dionicio Fong on 04-05-2025 Basophils/100 WBC (Bld) 1.0 % 0-1 [facility] Carbon dioxide, total [Moles /volume] in Central venous bloodOrdered By: Dionicio Fong on 04-05-2025 CO2 [Moles/Vol] 25.3 mmol/L 21.0-32.0 [facility] Chloride assayOrdered By: Gunjan goldbaldemar Fong on 04-05-2025 Chloride [Moles/Vol] 106 mmol/L 98-108 [facility] Eosinophil percentageOrdered By: goldauroraamerica Fong on 04-05-2025 Eosinophils/100 WBC (Bld) 4.0 % 0-5 [facility] Erythrocyte distribution wid th ratioOrdered By: Dionicio Fong on 04-05-2025 Erythrocyte distribution width (RBC) [Ratio] 15.1 % High 11.6-14.6 [facility] Erythrocyte distribution wid th standard deviationOrdered By: dania Fong on 04-05-2025 Erythrocyte distribution width (RBC) [Ratio] 48.3 fl High 35.1-43.9 [facility] Glomerular filtration rate ( GFR) estimation/1.73 sq m using serum, plasma, or whole bOrdered By: Dionicio Fong on 04-05-2025 GFR/1.73 sq M.predicted among non-blacks MDRD (S/P/Bld) [Vol rate/Area] 89 mL/min/{1.73_m2} >60 [facility] Comment on above: mL/min/1.73m2 CKD-EP I Creatinine Equation (2020) Hematocrit Auto (Bld) [Volum e fraction]Ordered By: Dionicio Fong on 04-05-2025 Hematocrit (Bld) [Volume fraction] 32.1 % Low 37-47 [facility] Hemoglobin measurementOrdere d By: Dionicio Fong on 04-05-2025 Hemoglobin (Bld) [Mass/Vol] 10.3 g/dL Low 12.0-15.0 [facility] Immature granulocytes/100 WB C Auto (Bld)Ordered By: Dionicio Fong on 04-05-2025 Immature granulocytes/100 WBC (Bld) 0.400 % 0.0-0.9 [facility] Comment on above: IG% - Immature Granu locytes (promyelocytes, myelocytes and metamyelocytes) > 1% indicates that a LEFT SHIFT is Present. MCV (mean corpuscular volume ) determinationOrdered By: Dionicio Fong on 04-05-2025 MCV (RBC) [Entitic vol] 87.5 fL 81-99 [facility] Mean corpuscular hemoglobin (MCH) determinationOrdered By: goldauroraamerica Fong on 04-05-2025 MCH (RBC) [Entitic mass] 28.1 pg 27.0-32.0 [facility] Mean corpuscular hemoglobin concentration (MCHC) determinationOrdered By: Dionicio Fong on 04-05-2025 MCHC (RBC) [Mass/Vol] 32.1 g/dL 32-36 [facility] Mean platelet volume determi nationOrdered By: Dionicio Fong on 04-05-2025 Platelet mean volume (Bld) [Entitic vol] 11.3 fL 6.2-12.0 [facility] Monocyte percentageOrdered B y: Dionicio Fong on 04-05-2025 Monocytes/100 WBC (Bld) 9.1 % 0-10 [facility] Neutrophil percentageOrdered By: Dionicio Fong on 04-05-2025 Neutrophils/100 WBC (Bld) 68.9 % 47-70 [facility] Nucleated red blood cell per centageOrdered By: Dionicio Fong on 04-05-2025 Nucleated RBC/100 WBC (Bld) [Ratio] 0 % 0-5 [facility] Platelet countOrdered By: Gunjan dania Fong on 04-05-2025 Platelets (Bld) [#/Vol] 359 10*3/uL 150-450 [facility] Potassium measurement (mass/ volume)Ordered By: Dionicio Nahidzahida on 04-05-2025 Potassium (Unsp spec) [Mass/Vol] 4.2 mmol/L 3.3-5.1 [facility] RBC Auto (Bld) [#/Vol]Ordere d By: Dionicio Nahidzahida on 04-05-2025 RBC (Bld) [#/Vol] 3.67 10*6/uL Low 4.2-5.4 [facility] Serum creatinine measurement (mass/volume)Ordered By: Dionicio Nahidzahida on 04-05-2025 Creatinine [Mass/Vol] 0.68 mg/dL Low 0.70-1.20 [facility] Serum glucose measurement (m ass/volume)Ordered By: Gunjangoldakhilamerica Whitfieldjelaniche on 04-05-2025 Glucose [Mass/Vol] 100 mg/dL High 70-99 [facility] Serum or plasma calcium maycol urement (mass/volume)Ordered By: Dionicio Nahidzahida on 04-05-2025 Calcium [Mass/Vol] 9.1 mg/dL 7.6-11.0 [facility] Serum or plasma urea nitroge n measurement (mass/volume)Ordered By: Lucaamerica Whitfieldjelaniche on 04-05-2025 Urea nitrogen [Mass/Vol] 11 mg/dL 4-19 [facility] Sodium levelOrdered By: Natalee Fong on 04-05-2025 Sodium [Moles/Vol] 140 mmol/L 133-145 [facility] White blood cell (WBC) count Ordered By: Gunjangoldbaldemar Nahidzahida on 04-05-2025 WBC (Bld) [#/Vol] 7.3 10*3/uL 4.4-11.0 [facility] Absolute lymphocyte countOrd ered By: Dionicio Nahidjelaniche on 03-28-2025 Lymphocytes Auto (Unsp spec) [#/Vol] 1.72 10*3/uL 0.83-4.51 [facility] Absolute neutrophil countOrd ered By: Dionicio Fong on 03-28-2025 Neutrophils (Bld) [#/Vol] 5.7 10*3/uL 2.0-7.7 [facility] Anion gap in Serum or Plasma Ordered By: Dionicio Fong on 03-28-2025 Anion gap [Moles/Vol] 10 mmol/L 5-15 [facility] Automated lymphocyte count a s percentage of total leukocytesOrdered By: Dionicio Fong on 03-28-2025 Lymphocytes/100 WBC Auto (Unsp spec) 20.3 % 19-41 [facility] BUN/creatinine ratioOrdered By: Nataleeauroraamerica Fong on 03-28-2025 Urea nitrogen/Creatinine [Mass ratio] 19.4 mg/mg 10-20 [facility] Basophil percentageOrdered B y: Dionicio Fong on 03-28-2025 Basophils/100 WBC (Bld) 0.7 % 0-1 [facility] Carbon dioxide, total [Moles /volume] in Central venous bloodOrdered By: dania Fong on 03-28-2025 CO2 [Moles/Vol] 26.0 mmol/L 21.0-32.0 [facility] Chloride assayOrdered By: Gunjan Fong on 03-28-2025 Chloride [Moles/Vol] 106 mmol/L 98-108 [facility] Eosinophil percentageOrdered By: Dionicio Fong on 03-28-2025 Eosinophils/100 WBC (Bld) 3.3 % 0-5 [facility] Erythrocyte distribution wid th ratioOrdered By: dania Fong on 03-28-2025 Erythrocyte distribution width (RBC) [Ratio] 14.6 % 11.6-14.6 [facility] Erythrocyte distribution wid th standard deviationOrdered By: dania Fong on 03-28-2025 Erythrocyte distribution width (RBC) [Ratio] 46.9 fl High 35.1-43.9 [facility] Glomerular filtration rate ( GFR) estimation/1.73 sq m using serum, plasma, or whole bOrdered By: Dionicio Fong on 03-28-2025 GFR/1.73 sq M.predicted among non-blacks MDRD (S/P/Bld) [Vol rate/Area] 84 mL/min/{1.73_m2} >60 [facility] Comment on above: mL/min/1.73m2 CKD-EP I Creatinine Equation (2020) Hematocrit Auto (Bld) [Volum e fraction]Ordered By: Dionicio Whitfieldjelaniche on 03-28-2025 Hematocrit (Bld) [Volume fraction] 30.3 % Low 37-47 [facility] Hemoglobin measurementOrdere d By: parrisamerica Whitfieldjelaniche on 03-28-2025 Hemoglobin (Bld) [Mass/Vol] 9.6 g/dL Low 12.0-15.0 [facility] Immature granulocytes/100 WB C Auto (Bld)Ordered By: dania Whitfieldjelaniche on 03-28-2025 Immature granulocytes/100 WBC (Bld) 0.400 % 0.0-0.9 [facility] Comment on above: IG% - Immature Granu locytes (promyelocytes, myelocytes and metamyelocytes) > 1% indicates that a LEFT SHIFT is Present. MCV (mean corpuscular volume ) determinationOrdered By: Dionicio Fong on 03-28-2025 MCV (RBC) [Entitic vol] 87.6 fL 81-99 [facility] Mean corpuscular hemoglobin (MCH) determinationOrdered By: Dionicio Fong on 03-28-2025 MCH (RBC) [Entitic mass] 27.7 pg 27.0-32.0 [facility] Mean corpuscular hemoglobin concentration (MCHC) determinationOrdered By: Gunjandania Whitfieldjleaniche on 03-28-2025 MCHC (RBC) [Mass/Vol] 31.7 g/dL Low 32-36 [facility] Mean platelet volume determi nationOrdered By: Gunjangoldakhilamerica Whitfieldjelaniche on 03-28-2025 Platelet mean volume (Bld) [Entitic vol] 11.3 fL 6.2-12.0 [facility] Monocyte percentageOrdered B y: Dionicio Whitfieldjelaniche on 03-28-2025 Monocytes/100 WBC (Bld) 8.0 % 0-10 [facility] Neutrophil percentageOrdered By: Dionicio Fong on 03-28-2025 Neutrophils/100 WBC (Bld) 67.3 % 47-70 [facility] Nucleated red blood cell per centageOrdered By: Dionicio Fong on 03-28-2025 Nucleated RBC/100 WBC (Bld) [Ratio] 0 % 0-5 [facility] Platelet countOrdered By: Gunjan Fong on 03-28-2025 Platelets (Bld) [#/Vol] 335 10*3/uL 150-450 [facility] Potassium measurement (mass/ volume)Ordered By: Dionicio Fong on 03-28-2025 Potassium (Unsp spec) [Mass/Vol] 3.9 mmol/L 3.3-5.1 [facility] RBC Auto (Bld) [#/Vol]Ordere d By: Dionicio Fong on 03-28-2025 RBC (Bld) [#/Vol] 3.46 10*6/uL Low 4.2-5.4 [facility] Serum creatinine measurement (mass/volume)Ordered By: Dionicio Fong on 03-28-2025 Creatinine [Mass/Vol] 0.73 mg/dL 0.70-1.20 [facility] Serum glucose measurement (m ass/volume)Ordered By: Dionicio Fong on 03-28-2025 Glucose [Mass/Vol] 80 mg/dL 70-99 [facility] Serum or plasma calcium maycol urement (mass/volume)Ordered By: Dionicio Fong on 03-28-2025 Calcium [Mass/Vol] 9.2 mg/dL 7.6-11.0 [facility] Serum or plasma urea nitroge n measurement (mass/volume)Ordered By: Dionicio Fong on 03-28-2025 Urea nitrogen [Mass/Vol] 14 mg/dL 4-19 [facility] Sodium levelOrdered By: Natalee Fong on 03-28-2025 Sodium [Moles/Vol] 142 mmol/L 133-145 [facility] White blood cell (WBC) count Ordered By: Dionicio Fong on 03-28-2025 WBC (Bld) [#/Vol] 8.5 10*3/uL 4.4-11.0 [facility] Absolute lymphocyte countOrd ered By: Dionicio Fong on 03-22-2025 Lymphocytes Auto (Unsp spec) [#/Vol] 1.28 10*3/uL 0.83-4.51 [facility] Absolute neutrophil countOrd ered By: Dionicio Fong on 03-22-2025 Neutrophils (Bld) [#/Vol] 6.1 10*3/uL 2.0-7.7 [facility] Anion gap in Serum or Plasma Ordered By: Nataleeakhilamerica Whitfieldzahida on 03-22-2025 Anion gap [Moles/Vol] 11 mmol/L 5-15 [facility] Automated lymphocyte count a s percentage of total leukocytesOrdered By: Gunjangoldbaldemar Fong on 03-22-2025 Lymphocytes/100 WBC Auto (Unsp spec) 14.5 % Low 19-41 [facility] BUN/creatinine ratioOrdered By: Dionicio Fong on 03-22-2025 Urea nitrogen/Creatinine [Mass ratio] 19.9 mg/mg 10-20 [facility] Basophil percentageOrdered B y: Dionicio Fong on 03-22-2025 Basophils/100 WBC (Bld) 0.9 % 0-1 [facility] Bilirubin, totalOrdered By: Dionicio Fong on 03-22-2025 Bilirubin [Mass/Vol] 0.42 mg/dL 0.00-1.30 [facility] Carbon dioxide, total [Moles /volume] in Central venous bloodOrdered By: Dionicio Briscoeche on 03-22-2025 CO2 [Moles/Vol] 24.0 mmol/L 21.0-32.0 [facility] Chloride assayOrdered By: Ef dania Briscoeche on 03-22-2025 Chloride [Moles/Vol] 104 mmol/L 98-108 [facility] Eosinophil percentageOrdered By: Dionicio Fong on 03-22-2025 Eosinophils/100 WBC (Bld) 4.3 % 0-5 [facility] Erythrocyte distribution wid th ratioOrdered By: Dionicio Fong on 03-22-2025 Erythrocyte distribution width (RBC) [Ratio] 14.4 % 11.6-14.6 [facility] Erythrocyte distribution wid th standard deviationOrdered By: Dionicio Fong on 03-22-2025 Erythrocyte distribution width (RBC) [Ratio] 46.5 fl High 35.1-43.9 [facility] Glomerular filtration rate ( GFR) estimation/1.73 sq m using serum, plasma, or whole bOrdered By: Dionicio Fong on 03-22-2025 GFR/1.73 sq M.predicted among non-blacks MDRD (S/P/Bld) [Vol rate/Area] 72 mL/min/{1.73_m2} >60 [facility] Comment on above: mL/min/1.73m2 CKD-EP I Creatinine Equation (2020) Hematocrit Auto (Bld) [Volum e fraction]Ordered By: Dionicio Fong on 03-22-2025 Hematocrit (Bld) [Volume fraction] 31.4 % Low 37-47 [facility] Hemoglobin measurementOrdere d By: Dionicio Fong on 03-22-2025 Hemoglobin (Bld) [Mass/Vol] 9.9 g/dL Low 12.0-15.0 [facility] Immature granulocytes/100 WB C Auto (Bld)Ordered By: Dionicio Fong 03-22-2025 Immature granulocytes/100 WBC (Bld) 0.600 % 0.0-0.9 [facility] Comment on above: IG% - Immature Granu locytes (promyelocytes, myelocytes and metamyelocytes) > 1% indicates that a LEFT SHIFT is Present. Laboratory - Chemistry and C hemistry - challengeOrdered By: Dionicio Fong on 03-22-2025 AST [Catalytic activity/Vol] 71 U/L High <32 [facility] MCV (mean corpuscular volume ) determinationOrdered By: Dionicio Fong 03-22-2025 MCV (RBC) [Entitic vol] 88.5 fL 81-99 [facility] Mean corpuscular hemoglobin (MCH) determinationOrdered By: Dionicio Fong on 03-22-2025 MCH (RBC) [Entitic mass] 27.9 pg 27.0-32.0 [facility] Mean corpuscular hemoglobin concentration (MCHC) determinationOrdered By: Gunjandania Whitfieldjelaniche on 03-22-2025 MCHC (RBC) [Mass/Vol] 31.5 g/dL Low 32-36 [facility] Mean platelet volume determi nationOrdered By: Gunjandania Whitfieldjelaniche on 03-22-2025 Platelet mean volume (Bld) [Entitic vol] 11.7 fL 6.2-12.0 [facility] Monocyte percentageOrdered B y: Lucaamerica Whitfieldjelaniche on 03-22-2025 Monocytes/100 WBC (Bld) 10.2 % High 0-10 [facility] Neutrophil percentageOrdered By: Dionicio Whitfieldjelaniche on 03-22-2025 Neutrophils/100 WBC (Bld) 69.5 % 47-70 [facility] Nucleated red blood cell per centageOrdered By: Dionicio Whitfieldjelaniche on 03-22-2025 Nucleated RBC/100 WBC (Bld) [Ratio] 0 % 0-5 [facility] Platelet countOrdered By: Gunjan dania Nahidjelaniche on 03-22-2025 Platelets (Bld) [#/Vol] 332 10*3/uL 150-450 [facility] Potassium measurement (mass/ volume)Ordered By: Dionicio Fong on 03-22-2025 Potassium (Unsp spec) [Mass/Vol] 4.1 mmol/L 3.3-5.1 [facility] RBC Auto (Bld) [#/Vol]Ordere d By: Dionicio Whitfieldjelaniche on 03-22-2025 RBC (Bld) [#/Vol] 3.55 10*6/uL Low 4.2-5.4 [facility] Serum creatinine measurement (mass/volume)Ordered By: Dionicio Fong on 03-22-2025 Creatinine [Mass/Vol] 0.83 mg/dL 0.70-1.20 [facility] Serum globulin measurementOr dered By: Dionicio Fong on 03-22-2025 Globulin (S) [Mass/Vol] 2.9 g/dL 2.2-4.2 [facility] Serum glucose measurement (m ass/volume)Ordered By: Dionicio Fong on 03-22-2025 Glucose [Mass/Vol] 82 mg/dL 70-99 [facility] Serum or plasma alanine juárez otransferase (ALT) measurementOrdered By: Dionicio Fong on 03-22-2025 ALT [Catalytic activity/Vol] 82 U/L High <35 [facility] Serum or plasma albumin maycol urement (mass/volume)Ordered By: Dionicio Fong on 03-22-2025 Albumin [Mass/Vol] 3.4 g/dL 3.4-4.8 [facility] Serum or plasma albumin/glob ulin mass ratioOrdered By: Dionicio Fong 03-22-2025 Albumin/Globulin [Mass ratio] 1.1 {ratio} 0.9-2.4 [facility] Serum or plasma alkaline michael sphatase measurementOrdered By: Dionicio Fong 03-22-2025 ALP [Catalytic activity/Vol] 112 U/L High 35-104 [facility] Serum or plasma calcium maycol urement (mass/volume)Ordered By: Dionicio Fong 03-22-2025 Calcium [Mass/Vol] 9.5 mg/dL 7.6-11.0 [facility] Serum or plasma urea nitroge n measurement (mass/volume)Ordered By: Dionicio Fong 03-22-2025 Urea nitrogen [Mass/Vol] 17 mg/dL 4-19 [facility] Sodium levelOrdered By: Natalee uribeche Hetal on 03-22-2025 Sodium [Moles/Vol] 139 mmol/L 133-145 [facility] Total proteinOrdered By: Sidney Fong 03-22-2025 Protein [Mass/Vol] 6.3 g/dL 5.9-8.4 [facility] White blood cell (WBC) count Ordered By: Dionicio Fong 03-22-2025 WBC (Bld) [#/Vol] 8.8 10*3/uL 4.4-11.0 [facility] Gastroenterology Visit Repor ton 03-21-2025 Gastroenterology Visit Report [facility]enter[facility] [address] [place] [address] OFFICE VISIT Date of Service: 03/21/25 MR#: [id number] Acct: [id number] Name: WILLEM EVANS Rep #: [id number] : 1945 Provider: MACK martinez Age/Sex: 79/F [place] [facility] [place]: [place] Intake Vital Signs 02/24/25 15:26 03/16/25 12:13 Height 5 ft 6.14 in 5 ft 6.14 in Intake Visit Reasons: VOMITING NAUSEA Allergies No Known Allergies Allergy (Verified 02/24/25 09:29) Medications ???Medication ???Instructions ???Recorded ???Confirmed ???Type fluoxetine 40 mg capsule 60 mg PO DAILY anxiety 10/17/21 History multivitamin 1 tab PO DAILY suppliment 10/17/21 03/21/25 History buspirone 10 mg tablet 10 mg PO TID mood 02/28/24 5 History melatonin 10 mg capsule 10 mg PO QHS PRN sleep 02/28/24 History memantine 10 mg tablet 10 mg PO BID memory 02/28/2403/21 History polyethylene glycol 3350 17 17 g PO DAILY PRN constipation 03/21/25 History gram/dose oral powder (ClearLax) sennosides 8.6 mg tablet 17.2 mg PO BID PRN constipation 03/21/25 History (Evac-U-Gen (sennosides)) gabapentin 100 mg capsule 100 mg PO TID PRN PRN for pain 06/0403/21/25 History losartan 25 mg tablet 25 mg PO DAILY bp 12/18/24 5 History trazodone 50 mg tablet 50 mg PO QHS sleep 12/18/24 History aspirin 81 mg chewable tablet 1 tab PO DAILY suppliment 02/24/25 03/21/25 History atorvastatin 40 mg tablet 40 mg PO QHS cholesterol 02/24/25 02/24/25 History fluoxetine 20 mg capsule 60 mg PO DAILY depression 02/24/25 03/21/25 History primidone 50 mg tablet (Mysoline) 25 mg PO QHS sleep/tremmors 02/2403/21/25 History clopidogrel 75 mg tablet (Plavix) 75 mg PO DAILY #90 tabs 02/26/25 03/21/25 Rx potassium chloride 20 mEq 20 meq PO DAILY #30 tabs 02/26/25 03/21/25 Rx tablet,extended release(part/cryst) ondansetron HCl 4 mg tablet 4 mg PO Q8H 03/21/25 03/21/25 Hist ory pantoprazole 40 mg tablet,delayed 40 mg PO QDAY 03/21/25 03/21/25 H istory release Have you fallen in the past year?: No PFSH Medical History Dementia Hyperlipidemia Osteoporosis 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 She presents with her , due to her history of strokes and selective communication, he is communicating concerns on her behalf. He states that after every meal, sometimes even before finishing the meal, she will spit up her food. He states that it's not vomiting as there is no heaving. She had a recent [facility] admission for an acute right MCA stroke, 7.-19.. She is currently on pantoprazole 40 mg daily. Her expresses specific concerns regarding a problem with her gallbladder because I spit up a lot when I had my problems.She does not complain of any abdominal discomfort, does not exhibit any guarding. He states that he cannot remember if she has ever had an upper endoscopy or dilation of her esophagus. 7.18.25 MBS Moderate oropharyngeal dysphagia; Esophageal dysphagia. Recommended pureed texture and nectar liquids with repeat testing prior to advancement of diet. Notable retention of pudding in the middle and lower esophagus. Liquid wash mostly cleared barium from the middle esophagus. Continued retention of barium in the lower esophagus. ROS Const Constitutional: No fatigue, fever(s) or weight change ENT ENT: Positive for difficulty swallowing Gastro GI: Positive for difficulty swallowing and nausea/dyspepsia; No abdominal pain, belching, bloating, change in bowel habits, change in stool character, coffee ground emesis, constipation, cramping, diarrhea, heartburn, feeling full early, excessive flatus, incontinent of stools, Vomiting blood/hematemesis, Blood in stool, loose stools, Black,tarry stools, pain with swallowing, vomiting or other Musc Musculoskeletal: No joint pain Skin Skin: No yellowing of the eye or itchy eyes Psych Psychiatric: No anxiety and No depression Endo Endocrine: No fatigue or weight change Aller/Imm Allergy/Immunologic: No itchy eyes Rupert/Lymp Hematologic/Lymphatic : No easy bleeding or easy bruising Exam Const General: cooperative, healthy appearing, comfortable and no acute distress Nutritional Appearance: average body habitus Orientation: alert HENMT Head: normal to inspection Ears: hearing grossly normal bilaterally Eyes (more content not included)... Normal [facility] Absolute lymphocyte countOrd ered By: Dionicio Fong on 03-14-2025 Lymphocytes Auto (Unsp spec) [#/Vol] 1.06 10*3/uL 0.83-4.51 [facility] Absolute neutrophil countOrd ered By: Dionicio Fong on 03-14-2025 Neutrophils (Bld) [#/Vol] 6.0 10*3/uL 2.0-7.7 [facility] Anion gap in Serum or Plasma Ordered By: Dionicio Fong on 03-14-2025 Anion gap [Moles/Vol] 12 mmol/L 5-15 [facility] Automated lymphocyte count a s percentage of total leukocytesOrdered By: Dionicio Fong on 03-14-2025 Lymphocytes/100 WBC Auto (Unsp spec) 12.5 % Low 19-41 [facility] BUN/creatinine ratioOrdered By: Dionicio Fong on 03-14-2025 Urea nitrogen/Creatinine [Mass ratio] 22.3 mg/mg High 10-20 [facility] Basophil percentageOrdered B y: Dionicio Fong on 03-14-2025 Basophils/100 WBC (Bld) 1.2 % High 0-1 [facility] Bilirubin Test strip Ql (U)O rdered By: Dionicio Fong on 03-14-2025 Bilirubin Ql (U) 1 mg/dL High Negative [facility] Comment on above: COLOR OF URINE MAY A FFECT DIPSTICK RESULTS. Carbon dioxide, total [Moles /volume] in Central venous bloodOrdered By: Dionicio Fong on 03-14-2025 CO2 [Moles/Vol] 24.7 mmol/L 21.0-32.0 [facility] Chloride assayOrdered By: Gunjan Fong on 03-14-2025 Chloride [Moles/Vol] 104 mmol/L 98-108 [facility] Eosinophil percentageOrdered By: Dionicio Fong on 03-14-2025 Eosinophils/100 WBC (Bld) 4.7 % 0-5 [facility] Erythrocyte distribution wid th ratioOrdered By: dania Fong on 03-14-2025 Erythrocyte distribution width (RBC) [Ratio] 14.6 % 11.6-14.6 [facility] Erythrocyte distribution wid th standard deviationOrdered By: Dionicio Fong on 03-14-2025 Erythrocyte distribution width (RBC) [Ratio] 47.2 fl High 35.1-43.9 [facility] Glomerular filtration rate ( GFR) estimation/1.73 sq m using serum, plasma, or whole bOrdered By: Dionicio Fong on 03-14-2025 GFR/1.73 sq M.predicted among non-blacks MDRD (S/P/Bld) [Vol rate/Area] 57 mL/min/{1.73_m2} Low >60 [facility] Comment on above: mL/min/1.73m2 CKD-EP I Creatinine Equation (2020) Hematocrit Auto (Bld) [Volum e fraction]Ordered By: Dionicio Fong on 03-14-2025 Hematocrit (Bld) [Volume fraction] 36.4 % Low 37-47 [facility] Hemoglobin measurementOrdere d By: Dionicio Fong on 03-14-2025 Hemoglobin (Bld) [Mass/Vol] 11.5 g/dL Low 12.0-15.0 [facility] Immature granulocytes/100 WB C Auto (Bld)Ordered By: Dionicio oFng on 03-14-2025 Immature granulocytes/100 WBC (Bld) 0.600 % 0.0-0.9 [facility] Comment on above: IG% - Immature Granu locytes (promyelocytes, myelocytes and metamyelocytes) > 1% indicates that a LEFT SHIFT is Present. Ketones Test strip Ql (U)Ord ered By: Dionicio Fong on 03-14-2025 Ketones Ql (U) 5 mg/dl High Negative [facility] MCV (mean corpuscular volume ) determinationOrdered By: Dionicio Fong on 03-14-2025 MCV (RBC) [Entitic vol] 89.0 fL 81-99 [facility] Mean corpuscular hemoglobin (MCH) determinationOrdered By: Dionicio Fong on 03-14-2025 MCH (RBC) [Entitic mass] 28.1 pg 27.0-32.0 [facility] Mean corpuscular hemoglobin concentration (MCHC) determinationOrdered By: Dionicio Fong on 03-14-2025 MCHC (RBC) [Mass/Vol] 31.6 g/dL Low 32-36 [facility] Mean platelet volume determi nationOrdered By: Dionicio Fong on 03-14-2025 Platelet mean volume (Bld) [Entitic vol] 11.0 fL 6.2-12.0 [facility] Monocyte percentageOrdered B y: Dionicio Fong on 03-14-2025 Monocytes/100 WBC (Bld) 10.0 % 0-10 [facility] Neutrophil percentageOrdered By: Dionicio Fong on 03-14-2025 Neutrophils/100 WBC (Bld) 71.0 % High 47-70 [facility] Nitrite Test strip Ql (U)Ord ered By: Dionicio Fong on 03-14-2025 Nitrite Ql (U) Negative Negative [facility] Nucleated red blood cell per centageOrdered By: Dionicio Fong on 03-14-2025 Nucleated RBC/100 WBC (Bld) [Ratio] 0 % 0-5 [facility] Platelet countOrdered By: Gunjan Fong on 03-14-2025 Platelets (Bld) [#/Vol] 423 10*3/uL 150-450 [facility] Potassium measurement (mass/ volume)Ordered By: Dionicio Fong on 03-14-2025 Potassium (Unsp spec) [Mass/Vol] 4.9 mmol/L 3.3-5.1 [facility] Comment on above: Hemolysis present, R esults could be affected. Protein Test strip Ql (U)Ord ered By: Dionicio Fong on 03-14-2025 Protein Ql (U) 30 mg/dl High Negative [facility] RBC Auto (Bld) [#/Vol]Ordere d By: Dionicio Fong on 03-14-2025 RBC (Bld) [#/Vol] 4.09 10*6/uL Low 4.2-5.4 [facility] Serum creatinine measurement (mass/volume)Ordered By: Dionicio Fong on 03-14-2025 Creatinine [Mass/Vol] 1.00 mg/dL 0.70-1.20 [facility] Serum glucose measurement (m ass/volume)Ordered By: Dionicio Fong on 03-14-2025 Glucose [Mass/Vol] 102 mg/dL High 70-99 [facility] Serum or plasma calcium maycol urement (mass/volume)Ordered By: Dionicio Fong on 03-14-2025 Calcium [Mass/Vol] 10.0 mg/dL 7.6-11.0 [facility] Serum or plasma urea nitroge n measurement (mass/volume)Ordered By: Dionicio Fong on 03-14-2025 Urea nitrogen [Mass/Vol] 22 mg/dL High 4-19 [facility] Sodium levelOrdered By: Natalee Fong on 03-14-2025 Sodium [Moles/Vol] 140 mmol/L 133-145 [facility] Urine clarityOrdered By: Sidney Fong on 03-14-2025 Clarity (U) Cloudy Clear [facility] Urine color determinationOrd ered By: Dionicio Fong on 03-14-2025 Color (U) Yellow Yellow [facility] Urine cultureOrdered By: Sidney Fong on 03-14-2025 Bacteria identified Cx Nom (U) Mixed Gram Pos & Gram Neg Org Abnormal [facility] Urine glucose detectionOrder ed By: Dionicio Fong on 03-14-2025 Glucose Ql (U) Normal mg/dl Normal [facility] Urine leukocyte esterase det ection by dipstickOrdered By: Dionicio Fong on 03-14-2025 Leukocyte esterase Test strip Ql (U) 500 /ul High Negative [facility] Urine pHOrdered By: Trista Fong on 03-14-2025 pH (U) 5.0 [pH] 5.0 - 8.0 [facility] Urine specific gravity measu rementOrdered By: Dionicio Fong on 03-14-2025 Specific gravity (U) [Rel density] 1.025 1.002-1.030 [facility] Urine urobilinogen measureme ntOrdered By: Dionicio Fong on 03-14-2025 Urobilinogen Ql (U) Normal mg/dl Normal [facility] White blood cell (WBC) count Ordered By: Dionicio Fong on 03-14-2025 WBC (Bld) [#/Vol] 8.5 10*3/uL 4.4-11.0 [facility] Absolute lymphocyte countOrd ered By: Dionicio Fong on 03-07-2025 Lymphocytes Auto (Unsp spec) [#/Vol] 1.74 10*3/uL 0.83-4.51 [facility] Absolute neutrophil countOrd ered By: Dionicio Fong on 03-07-2025 Neutrophils (Bld) [#/Vol] 4.7 10*3/uL 2.0-7.7 [facility] Anion gap in Serum or Plasma Ordered By: Dionicio Fong on 03-07-2025 Anion gap [Moles/Vol] 12 mmol/L 5-15 [facility] Automated lymphocyte count a s percentage of total leukocytesOrdered By: Dionicio Fong on 03-07-2025 Lymphocytes/100 WBC Auto (Unsp spec) 23.4 % 19-41 [facility] BUN/creatinine ratioOrdered By: Dionicio Fong on 03-07-2025 Urea nitrogen/Creatinine [Mass ratio] 11.2 mg/mg 10-20 [facility] Basophil percentageOrdered B y: Dionicio Fong on 03-07-2025 Basophils/100 WBC (Bld) 1.1 % High 0-1 [facility] Bilirubin directOrdered By: Dionicio Fong on 03-07-2025 Bilirubin.direct [Mass/Vol] 0.20 mg/dL 0.00-0.30 [facility] Bilirubin, totalOrdered By: Dionicio Fong on 03-07-2025 Bilirubin [Mass/Vol] 0.38 mg/dL 0.00-1.30 [facility] Carbon dioxide, total [Moles /volume] in Central venous bloodOrdered By: Dionicio Fong on 03-07-2025 CO2 [Moles/Vol] 25.9 mmol/L 21.0-32.0 [facility] Chloride assayOrdered By: Gunjan Fong on 03-07-2025 Chloride [Moles/Vol] 100 mmol/L 98-108 [facility] Eosinophil percentageOrdered By: Dionicio Fong on 03-07-2025 Eosinophils/100 WBC (Bld) 1.6 % 0-5 [facility] Erythrocyte distribution wid th ratioOrdered By: Dionicio Fong on 03-07-2025 Erythrocyte distribution width (RBC) [Ratio] 14.2 % 11.6-14.6 [facility] Erythrocyte distribution wid th standard deviationOrdered By: Dionicio Fong on 03-07-2025 Erythrocyte distribution width (RBC) [Ratio] 46.6 fl High 35.1-43.9 [facility] Glomerular filtration rate ( GFR) estimation/1.73 sq m using serum, plasma, or whole bOrdered By: Dionicio Fong on 03-07-2025 GFR/1.73 sq M.predicted among non-blacks MDRD (S/P/Bld) [Vol rate/Area] 85 mL/min/{1.73_m2} >60 [facility] Comment on above: mL/min/1.73m2 CKD-EP I Creatinine Equation (2020) Hematocrit Auto (Bld) [Volum e fraction]Ordered By: Dionicio Fong on 03-07-2025 Hematocrit (Bld) [Volume fraction] 33.4 % Low 37-47 [facility] Hemoglobin measurementOrdere d By: Dionicio Fong on 03-07-2025 Hemoglobin (Bld) [Mass/Vol] 10.7 g/dL Low 12.0-15.0 [facility] Immature granulocytes/100 WB C Auto (Bld)Ordered By: Dionicio Fong on 03-07-2025 Immature granulocytes/100 WBC (Bld) 0.500 % 0.0-0.9 [facility] Comment on above: IG% - Immature Granu locytes (promyelocytes, myelocytes and metamyelocytes) > 1% indicates that a LEFT SHIFT is Present. Laboratory - Chemistry and C hemistry - challengeOrdered By: Dionicio Fong on 03-07-2025 AST [Catalytic activity/Vol] 56 U/L High <32 [facility] MCV (mean corpuscular volume ) determinationOrdered By: Dionicio Fong on 03-07-2025 MCV (RBC) [Entitic vol] 88.6 fL 81-99 [facility] Mean corpuscular hemoglobin (MCH) determinationOrdered By: Dionicio Fong on 03-07-2025 MCH (RBC) [Entitic mass] 28.4 pg 27.0-32.0 [facility] Mean corpuscular hemoglobin concentration (MCHC) determinationOrdered By: Dionicio Fong on 03-07-2025 MCHC (RBC) [Mass/Vol] 32.0 g/dL 32-36 [facility] Mean platelet volume determi nationOrdered By: Dionicio Fong on 03-07-2025 Platelet mean volume (Bld) [Entitic vol] 10.5 fL 6.2-12.0 [facility] Monocyte percentageOrdered B y: Dionicio Fong on 03-07-2025 Monocytes/100 WBC (Bld) 10.7 % High 0-10 [facility] Neutrophil percentageOrdered By: Dionicio Fong on 03-07-2025 Neutrophils/100 WBC (Bld) 62.7 % 47-70 [facility] Nucleated red blood cell per centageOrdered By: Dionicio Fong on 03-07-2025 Nucleated RBC/100 WBC (Bld) [Ratio] 0 % 0-5 [facility] Platelet countOrdered By: Gunjan Fong on 03-07-2025 Platelets (Bld) [#/Vol] 530 10*3/uL High 150-450 [facility] Potassium measurement (mass/ volume)Ordered By: Dionicio Fong on 03-07-2025 Potassium (Unsp spec) [Mass/Vol] 4.1 mmol/L 3.3-5.1 [facility] RBC Auto (Bld) [#/Vol]Ordere d By: Dionicio Fong on 03-07-2025 RBC (Bld) [#/Vol] 3.77 10*6/uL Low 4.2-5.4 [facility] Serum creatinine measurement (mass/volume)Ordered By: Dionicio Fong on 03-07-2025 Creatinine [Mass/Vol] 0.72 mg/dL 0.70-1.20 [facility] Serum globulin measurementOr dered By: Dionicio Fong on 03-07-2025 Globulin (S) [Mass/Vol] 3.1 g/dL 2.2-4.2 [facility] Serum glucose measurement (m ass/volume)Ordered By: Dionicio Fong on 03-07-2025 Glucose [Mass/Vol] 91 mg/dL 70-99 [facility] Serum or plasma alanine juárez otransferase (ALT) measurementOrdered By: Dionicio Fong 03-07-2025 ALT [Catalytic activity/Vol] 64 U/L High <35 [facility] Serum or plasma albumin maycol urement (mass/volume)Ordered By: Dionicio Fong on 03-07-2025 Albumin [Mass/Vol] 3.7 g/dL 3.4-4.8 [facility] Serum or plasma alkaline michael sphatase measurementOrdered By: Dionicio Fong on 03-07-2025 ALP [Catalytic activity/Vol] 158 U/L High 35-104 [facility] Serum or plasma calcium maycol urement (mass/volume)Ordered By: Dionicio Fong on 03-07-2025 Calcium [Mass/Vol] 9.7 mg/dL 7.6-11.0 [facility] Serum or plasma urea nitroge n measurement (mass/volume)Ordered By: Dionicio Fong on 03-07-2025 Urea nitrogen [Mass/Vol] 8 mg/dL 4-19 [facility] Sodium levelOrdered By: Natalee Fong on 03-07-2025 Sodium [Moles/Vol] 139 mmol/L 133-145 [facility] Total proteinOrdered By: Sidney Fong on 03-07-2025 Protein [Mass/Vol] 6.7 g/dL 5.9-8.4 [facility] White blood cell (WBC) count Ordered By: Dionicio Fong on 03-07-2025 WBC (Bld) [#/Vol] 7.5 10*3/uL 4.4-11.0 [facility] Potassium measurement (mass/ volume)Ordered By: Dionicio Fong on 03-02-2025 Potassium (Unsp spec) [Mass/Vol] 3.4 mmol/L 3.3-5.1 [facility] Comment on above: Hemolysis present, R esults could be affected. Absolute lymphocyte countOrd ered By: Dionicio Fong on 02-28-2025 Lymphocytes Auto (Unsp spec) [#/Vol] 0.56 10*3/uL Low 0.83-4.51 [facility] Absolute neutrophil countOrd ered By: Dionicio Fong on 02-28-2025 Neutrophils (Bld) [#/Vol] 8.4 10*3/uL High 2.0-7.7 [facility] Anion gap in Serum or Plasma Ordered By: Dionicio Fong on 02-28-2025 Anion gap [Moles/Vol] 13 mmol/L 5-15 [facility] Automated lymphocyte count a s percentage of total leukocytesOrdered By: Dionicio Fong on 02-28-2025 Lymphocytes/100 WBC Auto (Unsp spec) 5.5 % Low 19-41 [facility] BUN/creatinine ratioOrdered By: Dionicio Fong on 02-28-2025 Urea nitrogen/Creatinine [Mass ratio] 15.7 mg/mg 10-20 [facility] Basic Metabolic Profile (BMP )on 02-28-2025 BUN Normal 4-19 [facility] Comment on above: Result Comment: Canc elled via OM: Order cancelled - Patient discharged Performed By: #### L 501.4021, L300.3900, L100.0100, L500.2500, L300.4310 #### [facility] [address] [place], [address] BUN/CRE Normal 10-20 [facility] Comment on above: Result Comment: Canc elled via OM: Order cancelled - Patient discharged Performed By: #### L 501.4021, L300.3900, L100.0100, L500.2500, L300.4310 #### [facility] [address] [place], [address] Calcium Normal 7.6-11.0 [facility] Comment on above: Result Comment: Canc elled via OM: Order cancelled - Patient discharged Performed By: #### L 501.4021, L300.3900, L100.0100, L500.2500, L300.4310 #### [facility] [address] [place], [address] CL Normal 98-108 [facility] Comment on above: Result Comment: Canc elled via OM: Order cancelled - Patient discharged Performed By: #### L 501.4021, L300.3900, L100.0100, L500.2500, L300.4310 #### [facility] [address] [place], [address] CO2 Normal 21.0-32.0 [facility] Comment on above: Result Comment: Canc elled via OM: Order cancelled - Patient discharged Performed By: #### L 501.4021, L300.3900, L100.0100, L500.2500, L300.4310 #### [facility] [address] [place], [address] CREAT,SERUM Normal 0.70-1.20 [facility] Comment on above: Result Comment: Canc elled via OM: Order cancelled - Patient discharged Performed By: #### L 501.4021, L300.3900, L100.0100, L500.2500, L300.4310 #### [facility] [address] [place], [address] eGFR Normal >60 [facility] Comment on above: Result Comment: Canc elled via OM: Order cancelled - Patient discharged Performed By: #### L 501.4021, L300.3900, L100.0100, L500.2500, L300.4310 #### [facility] [address] [place], [address] GAP Normal 5-15 [facility] Comment on above: Result Comment: Canc elled via OM: Order cancelled - Patient discharged Performed By: #### L 501.4021, L300.3900, L100.0100, L500.2500, L300.4310 #### [facility] [address] [place], [address] GLU Normal 70-99 [facility] Comment on above: Result Comment: Canc elled via OM: Order cancelled - Patient discharged Performed By: #### L 501.4021, L300.3900, L100.0100, L500.2500, L300.4310 #### [facility] [address] [place], [address] Potassium Normal 3.3-5.1 [facility] Comment on above: Result Comment: Canc elled via OM: Order cancelled - Patient discharged Performed By: #### L 501.4021, L300.3900, L100.0100, L500.2500, L300.4310 #### [facility] [address] [place], [place], [id number] Basic Metabolic Profile (BMP) Normal 133-145 [facility] Comment on above: Result Comment: Canc elled via OM: Order cancelled - Patient discharged Performed By: #### L 501.4021, L300.3900, L100.0100, L500.2500, L300.4310 #### [facility] [address] [place], [place], [address] Basophil percentageOrdered B y: Dionicio Fong on 02-28-2025 Basophils/100 WBC (Bld) 0.6 % 0-1 [facility] Bilirubin, totalOrdered By: Dionicio Fong on 02-28-2025 Bilirubin [Mass/Vol] 0.68 mg/dL 0.00-1.30 [facility] CBC W/Diff, Automatedon 02-09 Absolute Neut Normal 2.0-7.7 [facility] Comment on above: Result Comment: Canc elled via OM: Order cancelled - Patient discharged Performed By: #### L 501.4021, L300.3900, L100.0100, L500.2500, L300.4310 #### [facility] [address] [place], [place], [id number] HCT Normal 37-47 [facility] Comment on above: Result Comment: Canc elled via OM: Order cancelled - Patient discharged Performed By: #### L 501.4021, L300.3900, L100.0100, L500.2500, L300.4310 #### [facility] [address] [place], [address] HGB Normal 12.0-15.0 [facility] Comment on above: Result Comment: Canc elled via OM: Order cancelled - Patient discharged Performed By: #### L 501.4021, L300.3900, L100.0100, L500.2500, L300.4310 #### [facility] [address] [place], [address] MCH Normal 27.0-32.0 [facility] Comment on above: Result Comment: Canc elled via OM: Order cancelled - Patient discharged Performed By: #### L 501.4021, L300.3900, L100.0100, L500.2500, L300.4310 #### [facility] [address] [place], [address] MCHC Normal 32-36 [facility] Comment on above: Result Comment: Canc elled via OM: Order cancelled - Patient discharged Performed By: #### L 501.4021, L300.3900, L100.0100, L500.2500, L300.4310 #### [facility] [address] [place], [address] MCV Normal 81-99 [facility] Comment on above: Result Comment: Canc elled via OM: Order cancelled - Patient discharged Performed By: #### L 501.4021, L300.3900, L100.0100, L500.2500, L300.4310 #### [facility] [address] [place], [address] NEUT% Normal 47-70 [facility] Comment on above: Result Comment: Canc elled via OM: Order cancelled - Patient discharged Performed By: #### L 501.4021, L300.3900, L100.0100, L500.2500, L300.4310 #### [facility] [address] [place], [address] PLT Normal 150-450 [facility] Comment on above: Result Comment: Canc elled via OM: Order cancelled - Patient discharged Performed By: #### L 501.4021, L300.3900, L100.0100, L500.2500, L300.4310 #### [facility] [address] [place], [address] RBC Normal 4.2-5.4 [facility] Comment on above: Result Comment: Canc elled via OM: Order cancelled - Patient discharged Performed By: #### L 501.4021, L300.3900, L100.0100, L500.2500, L300.4310 #### [facility] [address] [place], [address] RDW CV Normal 11.6-14.6 [facility] Comment on above: Result Comment: Canc elled via OM: Order cancelled - Patient discharged Performed By: #### L 501.4021, L300.3900, L100.0100, L500.2500, L300.4310 #### [facility] [address] [place], [address] RDW SD Normal 35.1-43.9 [facility] Comment on above: Result Comment: Canc elled via OM: Order cancelled - Patient discharged Performed By: #### L 501.4021, L300.3900, L100.0100, L500.2500, L300.4310 #### [facility] [address] [place], [address] WBC Normal 4.4-11.0 [facility] Comment on above: Result Comment: Canc elled via OM: Order cancelled - Patient discharged Performed By: #### L 501.4021, L300.3900, L100.0100, L500.2500, L300.4310 #### [facility] [address] [place], [address] CNPNon [facility]20[facility] WILLEM EVANS ([id number]) 1945 F Date Time Provider Department 02/28/25 CITLALY العراقي During your visit today, we recorded the following information about you: Guillermina Montiel RN 02/28/2025 9:50 AM Signed Julia Mtz NP [facility] called in and reports Pt was in [facility] for a stroke, and now she is with them for therapy. She called in asking if the Pt ever had elevated LFTs. I told her I didn't see LFTs, Hep panel, or a liver US done on the Pt. I let her know the Pt just had labs done on 02/23/25 and her AST was 26 and ALT was 19. She states that is much different than what they are now. I faxed over the lab work from 02/23/25 to fax # [phone]. Guillermina Montiel RN Allergies As of Date: 02/28/2025 (No Known Allergies) Date Reviewed: 01/04/2025 Reviewed by: Ani Núñez MA - Fully Assessed Reason for Visit: Patient Question [6307] Prescriptions as of 02/28/2025 - losartan (COZAAR) 25 mg tablet Take 1 tablet by mouth once daily. - gabapentin (NEURONTIN) 100 mg capsule Take 1 capsule by mouth three times a day as needed for up to 90 days. - aspirin 81 mg chewable tablet 1 tablet by ORAL/FEEDING TUBE route once daily. - atorvastatin (LIPITOR) 40 mg tablet 1 tablet by ORAL/FEEDING TUBE route daily at bedtime. - primidone (MYSOLINE) 50 mg tablet 0.5 tablets by ORAL/FEEDING TUBE route daily at bedtime. - busPIRone (BUSPAR) 10 mg tablet Take 1 tablet by mouth three times a day. - memantine (NAMENDA) 10 mg tablet Take 1 tablet by mouth two times a day. - traZODone (DESYREL) 50 mg tablet Take 1 tablet by mouth daily at bedtime. - methocarbamol (ROBAXIN) 500 mg tablet Take 1 tablet by mouth three times a day as needed. - FLUoxetine (PROZAC) 40 mg capsule Take 1 capsule by mouth once daily. - FLUoxetine (PROZAC) 20 mg capsule Take 1 capsule by mouth once daily. Take along with 40 mg pill for a total of 60 mg daily - ondansetron (ZOFRAN) 4 mg tablet Take 4 mg by mouth every 8 hours as needed for nausea/vomiting. - pantoprazole DR (PROTONIX) 40 mg tablet Take 40 mg by mouth every 12 hours. - conjugated estrogens (PREMARIN) vaginal cream Use 1 g vaginally two times a week. - multivitamin (MULTIPLE VITAMINS) tablet Take by mouth. - loratadine (CLARITIN) 10 mg tablet Take by mouth. - acetaminophen (TYLENOL EXTRA STRENGTH) 500 mg tablet Take 2 tablets by mouth every 6 hours as needed for pain. - MELATONIN ORAL Take 6 mg by mouth daily at bedtime. - DAILY MULTIVITAMIN TAB Take one(1) tablet daily. 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] 11/29/2008 Acute midline low back pain without sciatica [M*11/07/2021 03/14/2022 Dementia without behavioral disturbance (HCC) [*10/31/2023 Acute ischemic cerebrovascular accident (CVA) i*12/18/2024 Essential tremor [G25.0] 12/20/2024 Hypokalemia [E87.6] 12/20/2024 Cerebral edema (HCC) [G93.6] 12/20/2024 Benign essential tremor [G25.0] 12/20/2024 History of dementia [Z86.59] 12/20/2024 Cerebral infarction (HCC) [I63.9] 12/21/2024 Encounter Status:Closed by GUILLERMINA MONTIEL on 02/28/25 Normal [facility] Carbon dioxide, total [Moles /volume] in Central venous bloodOrdered By: Dionicio Fong on 02-28-2025 CO2 [Moles/Vol] 22.9 mmol/L 21.0-32.0 [facility] Chloride assayOrdered By: Gunjan Fong on 02-28-2025 Chloride [Moles/Vol] 104 mmol/L 98-108 [facility] Eosinophil percentageOrdered By: Dionicio Fong on 02-28-2025 Eosinophils/100 WBC (Bld) 3.5 % 0-5 [facility] Erythrocyte distribution wid th ratioOrdered By: Dionicio Fong on 02-28-2025 Erythrocyte distribution width (RBC) [Ratio] 14.6 % 11.6-14.6 [facility] Erythrocyte distribution wid th standard deviationOrdered By: Dionicio Fong on 02-28-2025 Erythrocyte distribution width (RBC) [Ratio] 48.7 fl High 35.1-43.9 [facility] Glomerular filtration rate ( GFR) estimation/1.73 sq m using serum, plasma, or whole bOrdered By: Dionicio Fong on 02-28-2025 GFR/1.73 sq M.predicted among non-blacks MDRD (S/P/Bld) [Vol rate/Area] 92 mL/min/{1.73_m2} >60 [facility] Comment on above: mL/min/1.73m2 CKD-EP I Creatinine Equation (2020) Hematocrit Auto (Bld) [Volum e fraction]Ordered By: Dionicio Fong on 02-28-2025 Hematocrit (Bld) [Volume fraction] 30.8 % Low 37-47 [facility] Hemoglobin measurementOrdere d By: Dionicio Fong on 02-28-2025 Hemoglobin (Bld) [Mass/Vol] 9.8 g/dL Low 12.0-15.0 [facility] Immature granulocytes/100 WB C Auto (Bld)Ordered By: Dionicio Fong on 02-28-2025 Immature granulocytes/100 WBC (Bld) 0.500 % 0.0-0.9 [facility] Comment on above: IG% - Immature Granu locytes (promyelocytes, myelocytes and metamyelocytes) > 1% indicates that a LEFT SHIFT is Present. Laboratory - Chemistry and C hemistry - challengeOrdered By: Dionicio Fong on 02-28-2025 AST [Catalytic activity/Vol] 81 U/L High <32 [facility] MCV (mean corpuscular volume ) determinationOrdered By: Dionicio Fong on 02-28-2025 MCV (RBC) [Entitic vol] 90.6 fL 81-99 [facility] Comment on above: Delta: 86.1 on 02/26 Mean corpuscular hemoglobin (MCH) determinationOrdered By: Dionicio Fong on 02-28-2025 MCH (RBC) [Entitic mass] 28.8 pg 27.0-32.0 [facility] Mean corpuscular hemoglobin concentration (MCHC) determinationOrdered By: Dionicio Fong on 02-28-2025 MCHC (RBC) [Mass/Vol] 31.8 g/dL Low 32-36 [facility] Comment on above: Delta: 33.8 on 02/26 Mean platelet volume determi nationOrdered By: Dionicio Fong on 02-28-2025 Platelet mean volume (Bld) [Entitic vol] 11.3 fL 6.2-12.0 [facility] Monocyte percentageOrdered B y: Dionicio Fong on 02-28-2025 Monocytes/100 WBC (Bld) 7.3 % 0-10 [facility] Neutrophil percentageOrdered By: Dionicio Fong on 02-28-2025 Neutrophils/100 WBC (Bld) 82.6 % High 47-70 [facility] Nucleated red blood cell per centageOrdered By: Dionicio Fong on 02-28-2025 Nucleated RBC/100 WBC (Bld) [Ratio] 0 % 0-5 [facility] Platelet countOrdered By: Gunjan Fong on 02-28-2025 Platelets (Bld) [#/Vol] 367 10*3/uL 150-450 [facility] Potassium measurement (mass/ volume)Ordered By: Dionicio Fong on 02-28-2025 Potassium (Unsp spec) [Mass/Vol] 3.1 mmol/L Low 3.3-5.1 [facility] RBC Auto (Bld) [#/Vol]Ordere d By: Dionicio Fong on 02-28-2025 RBC (Bld) [#/Vol] 3.40 10*6/uL Low 4.2-5.4 [facility] Serum creatinine measurement (mass/volume)Ordered By: Dionicio Fong on 02-28-2025 Creatinine [Mass/Vol] 0.58 mg/dL Low 0.70-1.20 [facility] Serum globulin measurementOr dered By: Dionicio Fong on 02-28-2025 Globulin (S) [Mass/Vol] 3.0 g/dL 2.2-4.2 [facility] Serum glucose measurement (m ass/volume)Ordered By: Dionicio Fong on 02-28-2025 Glucose [Mass/Vol] 108 mg/dL High 70-99 [facility] Serum or plasma alanine juárez otransferase (ALT) measurementOrdered By: Dionicio Fong on 02-28-2025 ALT [Catalytic activity/Vol] 52 U/L High <35 [facility] Serum or plasma albumin maycol urement (mass/volume)Ordered By: Dionicio Fong on 02-28-2025 Albumin [Mass/Vol] 3.7 g/dL 3.4-4.8 [facility] Serum or plasma albumin/glob ulin mass ratioOrdered By: Dionicio Fong on 02-28-2025 Albumin/Globulin [Mass ratio] 1.2 {ratio} 0.9-2.4 [facility] Serum or plasma alkaline michael sphatase measurementOrdered By: Dionicio Fong 02-28-2025 ALP [Catalytic activity/Vol] 127 U/L High 35-104 [facility] Serum or plasma calcium maycol urement (mass/volume)Ordered By: Dionicio Fong on 02-28-2025 Calcium [Mass/Vol] 9.6 mg/dL 7.6-11.0 [facility] Serum or plasma urea nitroge n measurement (mass/volume)Ordered By: Dionicio Fong on 02-28-2025 Urea nitrogen [Mass/Vol] 9 mg/dL 11-27 [facility] Sodium levelOrdered By: Natalee Fong on 02-28-2025 Sodium [Moles/Vol] 140 mmol/L 133-145 [facility] Total proteinOrdered By: Sidney Fong on 02-28-2025 Protein [Mass/Vol] 6.7 g/dL 5.9-8.4 [facility] White blood cell (WBC) count Ordered By: Dionicio Fong on 02-28-2025 WBC (Bld) [#/Vol] 10.1 10*3/uL 4.4-11.0 [facility] Basic Metabolic Profile (BMP )on 02-27-2025 BUN Normal 11-27 [facility] Comment on above: Result Comment: Canc elled via OM: Order cancelled - Patient discharged Performed By: #### L 499.0043 #### [facility] [address] [place], [address] BUN/CRE Normal - [facility] Comment on above: Result Comment: Canc elled via OM: Order cancelled - Patient discharged Performed By: #### L 499.0043 #### [facility] [address] [place], [address] Calcium Normal 7.6-11.0 [facility] Comment on above: Result Comment: Canc elled via OM: Order cancelled - Patient discharged Performed By: #### L 499.0043 #### [facility] [address] [place], [address] CL Normal 98-108 [facility] Comment on above: Result Comment: Canc elled via OM: Order cancelled - Patient discharged Performed By: #### L 499.0043 #### [facility] [address] [place], [address] CO2 Normal 21.0-32.0 [facility] Comment on above: Result Comment: Canc elled via OM: Order cancelled - Patient discharged Performed By: #### L 499.0043 #### [facility] [address] [place], [address] CREAT,SERUM Normal 0.70-1.20 [facility] Comment on above: Result Comment: Canc elled via OM: Order cancelled - Patient discharged Performed By: #### L 499.0043 #### [facility] [address] [place], [address] eGFR Normal >60 [facility] Comment on above: Result Comment: Canc elled via OM: Order cancelled - Patient discharged Performed By: #### L 499.0043 #### [facility] [address] [place], [address] GAP Normal 5-15 [facility] Comment on above: Result Comment: Canc elled via OM: Order cancelled - Patient discharged Performed By: #### L 499.0043 #### [facility] [address] [place], [address] GLU Normal 70-99 [facility] Comment on above: Result Comment: Canc elled via OM: Order cancelled - Patient discharged Performed By: #### L 499.0043 #### [facility] [address] [place], [address] Potassium Normal 3.3-5.1 [facility] Comment on above: Result Comment: Canc elled via OM: Order cancelled - Patient discharged Performed By: #### L 499.0043 #### [facility] [address] [place], [address] Basic Metabolic Profile (BMP) Normal 133-145 [facility] Comment on above: Result Comment: Canc elled via OM: Order cancelled - Patient discharged Performed By: #### L 499.0043 #### [facility] [address] [place], [address] CBC W/Diff, Automatedon 07-2 0-2024 Absolute Neut Normal 2.0-7.7 [facility] Comment on above: Result Comment: Canc elled via OM: Order cancelled - Patient discharged Performed By: #### L 499.0043 #### [facility] [address] [place], [address] HCT Normal 37-47 [facility] Comment on above: Result Comment: Canc elled via OM: Order cancelled - Patient discharged Performed By: #### L 499.0043 #### [facility] [address] [place], [address] HGB Normal 12.0-15.0 [facility] Comment on above: Result Comment: Canc elled via OM: Order cancelled - Patient discharged Performed By: #### L 499.0043 #### [facility] [address] [place], [address] MCH Normal 27.0-32.0 [facility] Comment on above: Result Comment: Canc elled via OM: Order cancelled - Patient discharged Performed By: #### L 499.0043 #### [facility] [address] [place], [address] MCHC Normal 32-36 [facility] Comment on above: Result Comment: Canc elled via OM: Order cancelled - Patient discharged Performed By: #### L 499.0043 #### [facility] [address] [place], [address] MCV Normal 81-99 [facility] Comment on above: Result Comment: Canc elled via OM: Order cancelled - Patient discharged Performed By: #### L 499.0043 #### [facility] [address] [place], [address] NEUT% Normal 47-70 [facility] Comment on above: Result Comment: Canc elled via OM: Order cancelled - Patient discharged Performed By: #### L 499.0043 #### [facility] [address] [place], [address] PLT Normal 150-450 [facility] Comment on above: Result Comment: Canc elled via OM: Order cancelled - Patient discharged Performed By: #### L 499.0043 #### [facility] [address] [place], [address] RBC Normal 4.2-5.4 [facility] Comment on above: Result Comment: Canc elled via OM: Order cancelled - Patient discharged Performed By: #### L 499.0043 #### [facility] [address] [place], [address] RDW CV Normal 11.6-14.6 [facility] Comment on above: Result Comment: Canc elled via OM: Order cancelled - Patient discharged Performed By: #### L 499.0043 #### [facility] [address] [place], [address] RDW SD Normal 35.1-43.9 [facility] Comment on above: Result Comment: Canc elled via OM: Order cancelled - Patient discharged Performed By: #### L 499.0043 #### [facility] [address] [place], [address] WBC Normal 4.4-11.0 [facility] Comment on above: Result Comment: Canc elled via OM: Order cancelled - Patient discharged Performed By: #### L 499.0043 #### [facility] [address] [place], [address] Absolute lymphocyte countOrd ered By: Tabitha Whitfield on 02-26-2025 Lymphocytes Auto (Unsp spec) [#/Vol] 1.52 10*3/uL 0.83-4.51 [facility] Absolute neutrophil countOrd ered By: Tabitha Whitfield on 02-26-2025 Neutrophils (Bld) [#/Vol] 12.1 10*3/uL High 2.0-7.7 [facility] Anion gap in Serum or Plasma Ordered By: Tabitha Whitfield on 02-26-2025 Anion gap [Moles/Vol] 15 mmol/L 5- [facility] Automated lymphocyte count a s percentage of total leukocytesOrdered By: Tabitha Whitfield on 02-26-2025 Lymphocytes/100 WBC Auto (Unsp spec) 10.1 % Low [facility] BUN/creatinine ratioOrdered By: Tabitha Whitfield on 02-26-2025 Urea nitrogen/Creatinine [Mass ratio] 9.0 mg/mg Low 05-30 [facility] Basic Metabolic Profile (BMP )on 02-26-2025 BUN/CRE 9.0 RATIO Low 05-30 [facility] Comment on above: Performed By: #### L 501.4021, L300.3900, L100.0100, L500.2500, L300.4310 #### [facility] [address] [place], [address] Calcium [Mass/Vol] 8.9 mg/dL Normal 7.6-11.0 [facility] Comment on above: Performed By: #### L 501.4021, L300.3900, L100.0100, L500.2500, L300.4310 #### [facility] [address] [place], [address] Chloride [Moles/Vol] 101 mmol/L Normal 98-108 [facility] Comment on above: Performed By: #### L 501.4021, L300.3900, L100.0100, L500.2500, L300.4310 #### [facility] [address] [place], [address] CO2 [Moles/Vol] 18.5 mmol/L Low 21.0-32.0 [facility] Comment on above: Performed By: #### L 501.4021, L300.3900, L100.0100, L500.2500, L300.4310 #### [facility] [address] [place], [address] Creatinine [Mass/Vol] 0.50 mg/dL Low 0.70-1.20 [facility] Comment on above: Performed By: #### L 501.4021, L300.3900, L100.0100, L500.2500, L300.4310 #### [facility] [address] [place], [address] ECRCL 50.95 ml/min Normal 50-250 [facility] Comment on above: Performed By: #### L 501.4021, L300.3900, L100.0100, L500.2500, L300.4310 #### [facility] [address] [place], [address] GAP 15 Normal 5-15 [facility] Comment on above: Performed By: #### L 501.4021, L300.3900, L100.0100, L500.2500, L300.4310 #### [facility] [address] [place], [address] GFR/1.73 sq M.predicted among non-blacks MDRD (S/P/Bld) [Vol rate/Area] 96 mL/min/{1.73_m2} Normal >60 [facility] Comment on above: Result Comment: mL/m in/1.73m2 CKD-EPI Creatinine Equation (2020) Performed By: #### L 501.4021, L300.3900, L100.0100, L500.2500, L300.4310 #### [facility] [address] [place], [address] Glucose [Mass/Vol] 120 mg/dL High 70-99 [facility] Comment on above: Performed By: #### L 501.4021, L300.3900, L100.0100, L500.2500, L300.4310 #### [facility] [address] [place], [address] Potassium [Moles/Vol] 2.8 mmol/L Low 3.3-5.1 [facility] Comment on above: Performed By: #### L 501.4021, L300.3900, L100.0100, L500.2500, L300.4310 #### [facility] [address] [place], [address] Sodium [Moles/Vol] 135 mmol/L Normal 133-145 [facility] Comment on above: Performed By: #### L 501.4021, L300.3900, L100.0100, L500.2500, L300.4310 #### [facility] [address] [place], [address] Urea nitrogen [Mass/Vol] 4 mg/dL Normal 4-19 [facility] [facility] Comment on above: Performed By: #### L 501.4021, L300.3900, L100.0100, L500.2500, L300.4310 #### [facility] [address] [place], [address] Basophil percentageOrdered B y: Tabitha Changmary on 02-26-2025 Basophils/100 WBC (Bld) 0.4 % 0-1 [facility] CBC W/Diff, Automatedon 02-08 Absolute Lymph 1.52 X10 3/uL Normal 0.83-4.51 [facility] Comment on above: Performed By: #### L 501.4021, L300.3900, L100.0100, L500.2500, L300.4310 #### [facility] [address] [place], [address] Absolute Neut 12.1 X10 3/uL High 2.0-7.7 [facility] Comment on above: Performed By: #### L 501.4021, L300.3900, L100.0100, L500.2500, L300.4310 #### [facility] [address] [place], [address] Basophils/100 WBC (Bld) 0.4 % Normal 0-1 [facility] Comment on above: Performed By: #### L 501.4021, L300.3900, L100.0100, L500.2500, L300.4310 #### [facility] [address] [place], [address] Eosinophils/100 WBC (Bld) 0.1 % Normal 0-5 [facility] Comment on above: Performed By: #### L 501.4021, L300.3900, L100.0100, L500.2500, L300.4310 #### [facility] [address] [place], [address] Erythrocyte distribution width (RBC) [Ratio] 14.3 % Normal 11.6-14.6 [facility] Comment on above: Performed By: #### L 501.4021, L300.3900, L100.0100, L500.2500, L300.4310 #### [facility] [address] [place], [address] Hematocrit (Bld) [Volume fraction] 31.1 % Low 37-47 [facility] Comment on above: Performed By: #### L 501.4021, L300.3900, L100.0100, L500.2500, L300.4310 #### [facility] [address] [place], [address] Hemoglobin (Bld) [Mass/Vol] 10.5 g/dL Low 12.0-15.0 [facility] Comment on above: Performed By: #### L 501.4021, L300.3900, L100.0100, L500.2500, L300.4310 #### [facility] [address] [place], [address] IG% 0.400 Normal 0.0-0.9 [facility] Comment on above: Result Comment: IG% - Immature Granulocytes (promyelocytes, myelocytes and metamyelocytes) > 1% indicates that a LEFT SHIFT is Present. Performed By: #### L 501.4021, L300.3900, L100.0100, L500.2500, L300.4310 #### [facility] [address] [place], [address] Lymphocytes/100 WBC (Bld) 10.1 % Low 19-41 [facility] Comment on above: Performed By: #### L 501.4021, L300.3900, L100.0100, L500.2500, L300.4310 #### [facility] [address] [place], [address] MCH (RBC) [Entitic mass] 29.1 pg Normal 27.0-32.0 [facility] Comment on above: Performed By: #### L 501.4021, L300.3900, L100.0100, L500.2500, L300.4310 #### [facility] [address] [place], [address] MCHC (RBC) [Mass/Vol] 33.8 g/dL Normal 32-36 [facility] Comment on above: Performed By: #### L 501.4021, L300.3900, L100.0100, L500.2500, L300.4310 #### [facility] [address] [place], [address] MCV (RBC) [Entitic vol] 86.1 fL Normal 81-99 [facility] Comment on above: Performed By: #### L 501.4021, L300.3900, L100.0100, L500.2500, L300.4310 #### [facility] [address] [place], [address] Monocytes/100 WBC (Bld) 8.5 % Normal 0-10 [facility] Comment on above: Performed By: #### L 501.4021, L300.3900, L100.0100, L500.2500, L300.4310 #### [facility] [address] [place], [address] Neutrophils/100 WBC (Bld) 80.5 % High 47-70 [facility] Comment on above: Performed By: #### L 501.4021, L300.3900, L100.0100, L500.2500, L300.4310 #### [facility] [address] [place], [address] Nucleated RBC (Bld) [#/Vol] 0 10*3/uL Normal 0-5 [facility] Comment on above: Performed By: #### L 501.4021, L300.3900, L100.0100, L500.2500, L300.4310 #### [facility] [address] [place], [address] Platelet mean volume (Bld) [Entitic vol] 10.4 fL Normal 6.2-12.0 [facility] Comment on above: Performed By: #### L 501.4021, L300.3900, L100.0100, L500.2500, L300.4310 #### [facility] [address] [place], [address] Platelets (Bld) [#/Vol] 375 10*3/uL Normal 150-450 [facility] Comment on above: Performed By: #### L 501.4021, L300.3900, L100.0100, L500.2500, L300.4310 #### [facility] [address] [place], [address] RBC (Bld) [#/Vol] 3.61 10*6/uL Low 4.2-5.4 [facility] Comment on above: Performed By: #### L 501.4021, L300.3900, L100.0100, L500.2500, L300.4310 #### [facility] [address] [place], [address] RDW SD 45.4 fl High 35.1-43.9 [facility] Comment on above: Performed By: #### L 501.4021, L300.3900, L100.0100, L500.2500, L300.4310 #### [facility] [address] [place], [address] WBC (Bld) [#/Vol] 15.0 10*3/uL High 4.4-11.0 [facility] Comment on above: Performed By: #### L 501.4021, L300.3900, L100.0100, L500.2500, L300.4310 #### [facility] [address] [place], [address] Carbon dioxide, total [Moles /volume] in Central venous bloodOrdered By: Tabitha Whitfield on 02-26-2025 CO2 [Moles/Vol] 18.5 mmol/L Low 21.0-32.0 [facility] Chloride assayOrdered By: Aleksander Whitfield on 02-26-2025 Chloride [Moles/Vol] 101 mmol/L 98-108 [facility] Eosinophil percentageOrdered By: Tabitha Whitfield on 02-26-2025 Eosinophils/100 WBC (Bld) 0.1 % 0-5 [facility] Erythrocyte distribution wid th ratioOrdered By: Tabitha Whitfield on 02-26-2025 Erythrocyte distribution width (RBC) [Ratio] 14.3 % 11.6-14.6 [facility] Erythrocyte distribution wid th standard deviationOrdered By: Tabitha Whitfield on 02-26-2025 Erythrocyte distribution width (RBC) [Ratio] 45.4 fl High 35.1-43.9 [facility] Glomerular filtration rate ( GFR) estimation/1.73 sq m using serum, plasma, or whole bOrdered By: Tabitha Whitfield on 02-26-2025 GFR/1.73 sq M.predicted among non-blacks MDRD (S/P/Bld) [Vol rate/Area] 96 mL/min/{1.73_m2} >60 [facility] Comment on above: mL/min/1.73m2 CKD-EP I Creatinine Equation (2020) Hematocrit Auto (Bld) [Volum e fraction]Ordered By: Tabitha Whitfield on 02-26-2025 Hematocrit (Bld) [Volume fraction] 31.1 % Low 37-47 [facility] Hemoglobin measurementOrdere d By: Tabitha Whitfield on 02-26-2025 Hemoglobin (Bld) [Mass/Vol] 10.5 g/dL Low 12.0-15.0 [facility] Immature granulocytes/100 WB C Auto (Bld)Ordered By: Tabitha Whitfield on 02-26-2025 Immature granulocytes/100 WBC (Bld) 0.400 % 0.0-0.9 [facility] Comment on above: IG% - Immature Granu locytes (promyelocytes, myelocytes and metamyelocytes) > 1% indicates that a LEFT SHIFT is Present. MCV (mean corpuscular volume ) determinationOrdered By: Tabitha Whitfield on 02-26-2025 MCV (RBC) [Entitic vol] 86.1 fL 81-99 [facility] Mean corpuscular hemoglobin (MCH) determinationOrdered By: Tabitha Whitfield on 02-26-2025 MCH (RBC) [Entitic mass] 29.1 pg 27.0-32.0 [facility] Mean corpuscular hemoglobin concentration (MCHC) determinationOrdered By: Tabitha Whitfield on 02-26-2025 MCHC (RBC) [Mass/Vol] 33.8 g/dL 32-36 [facility] Mean platelet volume determi nationOrdered By: Tabitha Whitfield on 02-26-2025 Platelet mean volume (Bld) [Entitic vol] 10.4 fL 6.2-12.0 [facility] Monocyte percentageOrdered B y: Tabitha Whitfield on 02-26-2025 Monocytes/100 WBC (Bld) 8.5 % 0-10 [facility] Neutrophil percentageOrdered By: Tabitha Whitfield on 02-26-2025 Neutrophils/100 WBC (Bld) 80.5 % High 47-70 [facility] Nucleated red blood cell per centageOrdered By: Tabitha Whitfield on 02-26-2025 Nucleated RBC/100 WBC (Bld) [Ratio] 0 % 0-5 [facility] Platelet countOrdered By: Aleksander Whitfield on 02-26-2025 Platelets (Bld) [#/Vol] 375 10*3/uL 150-450 [facility] Potassium measurement (mass/ volume)Ordered By: Tabitha Whitfield on 02-26-2025 Potassium (Unsp spec) [Mass/Vol] 2.8 mmol/L Low 3.3-5.1 [facility] RBC Auto (Bld) [#/Vol]Ordere d By: Tabitha Whitfield on 02-26-2025 RBC (Bld) [#/Vol] 3.61 10*6/uL Low 4.2-5.4 [facility] Serum creatinine measurement (mass/volume)Ordered By: Tabitha Whitfield on 02-26-2025 Creatinine [Mass/Vol] 0.50 mg/dL Low 0.70-1.20 [facility] Serum glucose measurement (m ass/volume)Ordered By: Tabitha Whitfield on 02-26-2025 Glucose [Mass/Vol] 120 mg/dL High 70-99 [facility] Serum or plasma calcium maycol urement (mass/volume)Ordered By: Tabitha Whitfield on 02-26-2025 Calcium [Mass/Vol] 8.9 mg/dL 7.6-11.0 [facility] Serum or plasma urea nitroge n measurement (mass/volume)Ordered By: Tabitha Whitfield on 02-26-2025 Urea nitrogen [Mass/Vol] 4 mg/dL 4-19 [facility] Sodium levelOrdered By: Girish Whitfield on 02-26-2025 Sodium [Moles/Vol] 135 mmol/L 133-145 [facility] White blood cell (WBC) count Ordered By: Tabitha Whitfield on 02-26-2025 WBC (Bld) [#/Vol] 15.0 10*3/uL High 4.4-11.0 [facility] Basic Metabolic Profile (BMP )on 02-25-2025 BUN/CRE 8.7 RATIO Low 10-20 [facility] Comment on above: Order Comment: Comme nts: NPO at [place] prior to lipid panel Performed By: #### L 501.4021, L300.3900, L100.0100, L500.2500, L300.4310 #### [facility] [address] [place], [address] Calcium [Mass/Vol] 9.2 mg/dL Normal 7.6-11.0 [facility] Comment on above: Order Comment: Comme nts: NPO at [place] prior to lipid panel Performed By: #### L 501.4021, L300.3900, L100.0100, L500.2500, L300.4310 #### [facility] [address] [place], [address] Chloride [Moles/Vol] 103 mmol/L Normal 98-108 [facility] Comment on above: Order Comment: Comme nts: NPO at [place] prior to lipid panel Performed By: #### L 501.4021, L300.3900, L100.0100, L500.2500, L300.4310 #### [facility] [address] [place], [address] CO2 [Moles/Vol] 17.5 mmol/L Low 21.0-32.0 [facility] Comment on above: Order Comment: Comme nts: NPO at [place] prior to lipid panel Performed By: #### L 501.4021, L300.3900, L100.0100, L500.2500, L300.4310 #### [facility] [address] [place], [address] Creatinine [Mass/Vol] 0.53 mg/dL Low 0.70-1.20 [facility] Comment on above: Order Comment: Comme nts: NPO at [place] prior to lipid panel Performed By: #### L 501.4021, L300.3900, L100.0100, L500.2500, L300.4310 #### [facility] [address] [place], [address] ECRCL 50.95 ml/min Normal 50-250 [facility] Comment on above: Order Comment: Comme nts: NPO at [place] prior to lipid panel Performed By: #### L 501.4021, L300.3900, L100.0100, L500.2500, L300.4310 #### [facility] [address] [place], [address] GAP 17 High 5-15 [facility] Comment on above: Order Comment: Comme nts: NPO at [place] prior to lipid panel Performed By: #### L 501.4021, L300.3900, L100.0100, L500.2500, L300.4310 #### [facility] [address] [place], [address] GFR/1.73 sq M.predicted among non-blacks MDRD (S/P/Bld) [Vol rate/Area] 94 mL/min/{1.73_m2} Normal >60 [facility] Comment on above: Order Comment: Comme nts: NPO at [place] prior to lipid panel Result Comment: mL/m in/1.73m2 CKD-EPI Creatinine Equation (2020) Performed By: #### L 501.4021, L300.3900, L100.0100, L500.2500, L300.4310 #### [facility] [address] [place], [address] Glucose [Mass/Vol] 87 mg/dL Normal 70-99 [facility] Comment on above: Order Comment: Comme nts: NPO at [place] prior to lipid panel Performed By: #### L 501.4021, L300.3900, L100.0100, L500.2500, L300.4310 #### [facility] [address] [place], [address] Potassium [Moles/Vol] 3.5 mmol/L Normal 3.3-5.1 [facility] Comment on above: Order Comment: Comme nts: NPO at [place] prior to lipid panel Result Comment: Hemo lysis present, Results??could be affected. ?? Performed By: #### L 501.4021, L300.3900, L100.0100, L500.2500, L300.4310 #### [facility] [address] [place], [address] Sodium [Moles/Vol] 137 mmol/L Normal 133-145 [facility] Comment on above: Order Comment: Comme nts: NPO at [place] prior to lipid panel Performed By: #### L 501.4021, L300.3900, L100.0100, L500.2500, L300.4310 #### [facility] [address] [place], [address] Urea nitrogen [Mass/Vol] 5 mg/dL Normal 4-19 [facility] Comment on above: Order Comment: Comme nts: NPO at [place] prior to lipid panel Performed By: #### L 501.4021, L300.3900, L100.0100, L500.2500, L300.4310 #### [facility] [address] [place], [address] Brain without Contraston Brain without Contrast [facility] Imaging Services [address] [place] [address] Brain without Contrast MR#: [id number] Acct: [id number] Name: WILLEM EVANS Rep #: [id number] : 1945 F 79 From: Lauro Harman MD PCP: Dr. Citlaly العراقي MD Status: ADM IN Study: Brain without Contrast Date of Exam: 02/25/25 Exam# [id number] Ordering Dr: Tabitha Whitfield MD PROCEDURE: BRAIN WITHOUT CONTRAST 02/25/2025 REASON FOR EXAM: CVA TECHNIQUE: BRAIN WITHOUT CONTRAST Multiplanar and multisequence images were obtained. COMPARISON: CT head without contrast, 02/24/2025. FINDINGS: There are multiple foci of restricted diffusion in the periventricular and subcortical white matter of the right frontal, parietal and temporal lobes, consistent with acute embolic infarctions. There are superimposed areas of chronic infarction in the right temporal lobe, posteriorly and in the periventricular white matter of the right frontal and parietal lobes. Additionally there are chronic lacunar infarctions in both basal ganglia. There are multiple punctate foci of abnormal periventricular and subcortical white matter signal, in both cerebral hemispheres and in the ambrose, consistent with chronic ischemic white matter disease. There is moderate diffuse cerebral atrophy with appropriate ventriculomegaly. There is a normal sulcal pattern and gyral configuration. There is no evidence of acute intracranial hemorrhage. The hackett-white differentiation is well preserved. The basilar cisterns are normal. There are normal flow voids demonstrated in the recognized intracranial vessels. The cerebellum and brainstem are unremarkable. The cerebellar pontine angles are normal. The craniovertebral junction is normal. The sella and suprasellar regions are normal. The orbits and retro-orbital regions are unremarkable. There is right carlos eduardo bullosa with mild nasal septal deviation to the left. The paranasal sinuses are clear. The mastoid air cells are clear. There is normal bone marrow signal in the skull base and calvarium. MRI/Brain without Contrast IMPRESSION: 1. Multiple foci of restricted diffusion in the right cerebral hemisphere consistent with acute embolic infarctions. 2. Multiple chronic cortical and lacunar infarctions as described. 3. Cerebral atrophy. Reading Location: [place] [address] CC: Dr. Tabitha Whitfield MD; Dr. Citlaly العراقي MD Nut Tapper: Signed Normal [facility] CBC W/Diff, Automatedon 02-08 PLT EST ADEQUATE Normal ADEQ [facility] Comment on above: Performed By: #### L 499.0043 #### [facility] [address] [place], [address] Calculated very low density lipoprotein (VLDL) cholesterol measurementOrdered By: Tabitha Whitfield on 02-25-2025 Calculated very low density lipoprotein (VLDL) cholesterol measurement 17 mg/dL 5-40 [facility] Echocardiogram study reportO rdered By: Vita Aden on 02-25-2025 Study report [facility] [place] [address] Echo Complete 02/25/25925 MR#: [id number] Acct: [id number] Name: WILLEM EVANS Rep #:[id number] : 1945 79 From: Vita Aden MD Attending Dr: Dr. Tabitha Whitfield MD Status: ADM IN Ordering Dr: Tabitha Whitfield MD Date: Location: [facility] Sex: F C Admitted: 02/24/25 Reason For Study Reason For Study: TIA/STROKE Procedure This was a 2D Doppler, Color Flow transthoracic echocardiogram. Exam performed portable in patient room. Left Ventricle Normal LV size. Mild concentric left ventricular hypertrophy. Mild inferior hypokinesis. Septal wall motion consistent with left bundle branch block. Estimated LVEF 55%. Stage I diastolic dysfunction. Right Ventricle Normal right ventricle. Atria The left and right atria are normal. Mitral Valve Trivial mitral valve insufficiency. Tricuspid Valve Trivial tricuspid valve insufficiency. Unable to estimate RV systolic pressure due to insufficient tricuspid regurgitant envelope. Aortic Valve Trisinus/trileaflet aortic valve. Mild (1+) aortic valve insufficiency. Pulmonic Valve The pulmonic valve is not well visualized. Trivial pulmonic valve insufficiency. Great Vessels Normal sized aortic root. Pericardium/Pleural No pericardial effusion. MMode/2D Measurements & Calculations LVIDd: 3.7 cm IVSd: 1.3 cm Ao root diam: 3.2 cm LVIDs: 2.6 cm LVPWd: 1.4 cm RVDd: 3.2 cm FS: 29.6 % LAV(MOD-bp): 49.9 ml LVAd ap2: 23.3 cm2 SV(MOD-sp2): 32.2 ml LAV(MOD-bp) Indexed: 30.2 ml/m2 LVLd ap2: 8.0 cm SI(MOD-sp2): 19.5 ml/m2 LAV(MOD-sp2): 46.4 ml EDV(MOD-sp2): 56.3 ml LAV(MOD-sp4): 47.0 ml EDV(sp2-el): 57.8 ml LVAs ap2: 14.1 cm2 LVLs ap2: 7.0 cm ESV(MOD-sp2): 24.1 ml ESV(sp2-el): 23.9 ml EF(MOD-sp2): 57.2 % LA A4 area: 18.2 cm2 LA dimension(2D): 3.3 cm RA A4 area: 14.2 cm2 TAPSE: 2.3 cm Time Measurements MV dec time: 0.25 sec Doppler Measurements & Calculations MV A max vanesa: 84.9 cm/sec Lat Peak E' Vanesa: 7.3 cm/sec Med Peak E' Vanesa: 4.8 cm/sec Ao V2 max: 138.1 cm/sec LV V1 max: 98.0 cm/sec PA V2 max: 111.6 cm/sec Ao max P.6 mmHg LV V1 max P.8 mmHg TR max vanesa: 267.7 cm/sec TR max P.7 mmHg ECHO/Echo Complete Interpretation Summary Mild concentric left ventricular hypertrophy. Mild inferior hypokinesis. Septal wall motion consistent with left bundle branchblock. Estimated LVEF 55%. Stage I diastolic dysfunction. Mild (1+) aortic valve insufficiency. Ordering Physician: Tabitha Whitfield Referring Physician: CITLALY العراقي Performed By: Ivana Ramos RDCS 02/25/251317 Date _ Vita Aden MD CC: Dr. Tabitha Whitfield MD; Dr. Citlaly العراقي MD ~ Date Dictated: 02/25/25925 Date Transcribed: 02/25/251317 Nut Tapper: Signed [facility] Work Phone: LDL calc ser/plasOrdered By: Tabitha Whitfield on 02-25-2025 Cholesterol in LDL [Mass/Vol] 66 mg/dL Normal [facility] Comment on above: Vkizsqgsqk=521-959 m g/dL & Higher Tsoj=224 mg/dL or greater Order Comment: Comme nts: NPO at [place] prior to lipid panel Result Comment: Bord tlwrnk=699-292 mg/dL Higher Jadz=985 mg/dL or greater Performed By: #### L 501.4021, L300.3900, L100.0100, L500.2500, L300.4310 #### [facility] [address] [place], [address] Lipid Profileon 02-25-2025 CHOL:HDL 2.40 Normal [facility] Comment on above: Order Comment: Comme nts: NPO at [place] prior to lipid panel Performed By: #### L 501.4021, L300.3900, L100.0100, L500.2500, L300.4310 #### [facility] [address] [place], [address] Cholesterol in VLDL [Mass/Vol] 17 mg/dL Normal 5-40 [facility] Comment on above: Order Comment: Comme nts: NPO at [place] prior to lipid panel Performed By: #### L 501.4021, L300.3900, L100.0100, L500.2500, L300.4310 #### [facility] [address] [place], [address] MR/CON.PCM.NEon 02-25-2025 MR/CON.PCM.NE [facility] Medical Records Department [address] [place] [address] Consultation - Neurology 02/25/25 1026 MR#: [id number] Acct: [id number] Name: WILLEM EVANS Rep #: [id number] : 1945 79 From: Salud Sinclair MD PCP: Dr. Citlaly العراقي MD Status:ADM IN Location: [place] [address] Assessment and Plan: Stroke Assessment/Plan WILLEM EVANS is a 79 F with a history of CVA in December 2024, did receive TNK, known RM1 stenosis who presents for evaluation of new L sided weakness. Concern for new RMCA stroke and MRI bRain with new watershed looking stroke. Etiology likely 2/2 ICAD - Anti-platelet medication: recommend Plavix load 300mg and then doing Plavix 75mg+ASA 81mg x 90 days for her ICAD - for next 2 weeks, keep SBP 130-160/80-90, then BP goal should be <140/80 - LDL 66, A1c 6.0 - Occupational/ Physical therapy consults - NPO until swallow evaluation. IVF until able to take po - DVT prophylaxis with SCDs and heparin SQ - Vascular risk factor modification. The following are the recommended guidelines: LDL Goal < 70 Smoking Cessation Diabetes Management group home blood pressure control should achieve <130/80 mmHg. BP management should aim to achieve skilled nursing contorl in a reasonable amount of time, taking into consideration the individual patient's requirements and characteristics. Weight Management: Goal for BMI is 18.5 -24.9 kg/m2 Alcohol: No more than 2 drinks/day for men or 1 drink/day for non- women - Promote lifestyle modification: weight control, physical activity, moderation of alcohol intake, moderate sodium intake. Followup with PCP in 1-2 weeks, and in Neurology clinic in 6-12 weeks HPI Consult Data Date of Consult: 02/25/25 HPI Narrative HPI Narrative: WILLEM EVANS, is a 79 F who presents left-sided weakness and facial droop. Patient has history of CVA in December 2024, did receive TNK and was transferred to a [facility]. 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 Patient's daughter had noticed patient with a slight left facial droop 2 days prior to patient's admission. This was followed by subjective weakness involving the left lower extremity the following day. She did check up on her mom and found patient to have flaccid paralysis involving the left upper extremity necessitating patient being brought to the emergency department. Imaging studies obtained demonstrated a high-grade stenosis in the proximal M1 horizontal component of the right middle cerebral, measuring 0.5 cm in length. Call was placed for patient to have been transferred to [facility]. Patient's daughter however requested further transfer not to take place. Patient family wanted patient placed placed in the facility instead. Neurologic History Patient at baseline only is aware of person and some family members. The day before she was having progressive weakness that worsened and could no longer walk. She had weakness in December and had facial droop then. Patient did not recover completely after the December stroke. They notice most of the weakness at baseline on the L arm. Can no longer walk on her own, someone always has to walk with her from now on even though she does not use assistive devices. She has baseline dementia, did not worsen in December -? General: Laying comfortably in bed; in no acute distress. -? HENT: Normal oropharynx and mucosa. Normal external appearance of ears and nose. Exophthalmos. -? Neck: Supple, no pain or tenderness -? CV:??? No peripheral edema. -? Pulmonary:??? Normal respiratory effort. -? Ext: No cyanosis, edema, or deformity -? Skin: No rash. Normal palpation of skin.??? -? Musculoskeletal: full range of motion; no joint tenderness. Normal digits and nails by inspection. No clubbing. -? NEURO: -? Mental Status: The patient was alert and oriented to time, place, and person. Normal recent/remote memory, concentration, and general fund of knowledge. -? Language: speech is clear.??? Naming, repetition, fluency, and comprehension intact. -? Cranial Nerves: PERRL 4 mm/brisk. EOMI, visual ho full, R facial droop facial sensation intact, hearing intact Sternocleidomastoid and trapezius were equally strong. Soft palate raises equally, no uvular deviations -? Motor: minimal movement in plane of bed with the LUE, antigravity in the RUE strongly b./l LE antigravity with no drift -? Tone: low tone in the LUE -? Sensation- (more content not included)... Normal [facility] Magnesiumon 02-25-2025 Magnesium [Mass/Vol] 1.8 mg/dL Normal 1.5-2.2 [facility] Comment on above: Order Comment: Comme nts: NPO at [place] prior to lipid panel Performed By: #### L 501.4021, L300.3900, L100.0100, L500.2500, L300.4310 #### [facility] [address] [place], [address] Magnesium measurement (mass/ volume)Ordered By: Tabitha Whitfield on 02-25-2025 Magnesium (Unsp spec) [Mass/Vol] 1.8 mg/dL 1.5-2.2 [facility] Magnetic resonance imaging r eportOrdered By: Lauro Harman on 02-25-2025 Study report [facility] Imaging Services [address] [place] [address] Brain without Contrast MR#: [id number] Acct: [id number] Name: WILLEM EVANS Rep #: [id number] : 1945 F 79 From: Zenon Harman MD PCP: Dr. Citlaly العراقي MD Status: AD M IN Study:Brain without Contrast Date of Exam: 02/25/25 Exam# [id number] Ordering Dr: Annabel Whitfield MD PROCEDURE: BRAIN WITHOUT CONTRAST 02/25/2025 REASON FOR EXAM: CVA TECHNIQUE: BRAIN WITHOUT CONTRAST Multiplanar and multisequence images were obtained. COMPARISON: CT head without contrast, 02/24/2025. FINDINGS: There are multiple foci of restricted diffusion in the periventricular and subcortical white matter of the right frontal, parietal and temporal lobes, consistent with acute embolic infarctions. There are superimposed areas of chronic infarction in the right temporal lobe, posteriorly and in the periventricular white matter of the right frontal and parietal lobes. Additionally there are chronic lacunar infarctions in both basal ganglia. Thereare multiple punctate foci of abnormal periventricular and subcortical white matter signal, in both cerebral hemispheres and in the ambrose, consistent with chronic ischemic white matter disease. There is moderate diffuse cerebral atrophy with appropriate ventriculomegaly. There is a normal sulcal pattern and gyral configuration. There is no evidence of acute intracranial hemorrhage. The hackett-white differentiation is well preserved. The basilar cisterns are normal. There are normal flow voids demonstrated in the recognized intracranial vessels. The cerebellum and brainstem are unremarkable. The cerebellar pontine angles arenormal. The craniovertebral junction is normal. The sella and suprasellar regions are normal. The orbits and retro-orbital regions are unremarkable. There is right carlos eduardo bullosa with mild nasal septal deviation to the left. The paranasal sinuses are clear. The mastoid air cells are clear. Thereis normal bone marrow signal in the skull base and calvarium. MRI/Brain without Contrast IMPRESSION: 1. Multiple foci of restricted diffusion in the right cerebral hemisphere consistent with acute embolic infarctions. 2. Multiple chronic cortical and lacunar infarctions as described. 3. Cerebral atrophy. Reading Location: [place] [address] CC: Dr. Tabitha Whitfield MD; Dr. Citlaly العراقي MD ~ Nut Tapper: Signed [facility] Work Phone: Modified Barium Swallow Stud [email or web address] 02-25-2025 Modified Barium Swallow Study [facility] Speech Pathology [address] [place] [address] Modified Barium Swallow Study MR#: [id number] Acct: [id number] Name: WILLEM EVANS Rep #: [id number] : 1945 79 From: Promise Craft M.A., [facility] Modified Barium Swallow Patient Information Study Date: 02/25/25 Study Time: 12:30 Direct Billable Minutes: 108 Total Minutes procedure reportin Diagnosis: Acute R MCA stroke I63.511 Referring Physician: Tabitha Whitfield Reason for Referral: Assess swallow function, assess risk for aspiration, and determine recommendations for least restrictive diet textures and compensatory strategies to improve safety of swallow. 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 See EMR for full PMH. The patient presented w/ left-sided weakness and facial droop. Patient had history of CVA in December 2024, did receive TNK and was transferred to a [facility]. 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 Patient's daughter had noticed patient with a slight left facial droop 2 days prior to patient's admission. This was followed by subjective weakness involving the left lower extremity the following day. She did check up on her mom and found patient to have flaccid paralysis involving the left upper extremity necessitating patient being brought to the emergency department. Imaging studies obtained demonstrated a high-grade stenosis in the proximal M1 horizontal component of the right middle cerebral, measuring 0.5 cm in length. Call was placed for patient to have been transferred to [facility]. Patient's daughter however requested further transfer not to take place. Patient family wanted patient admitted at [facility]. ST consulted as part of CVA work up. BSE 02/25/2025 recommended NPO w/ plan for MBSS prior to diet advancement to further assess swallow function and aspiration risk. Brain MRI 02/25/2025 revealed, 1. Multiple foci of restricted diffusion in the right cerebral hemisphere consistent with acute embolic infarctions. 2. Multiple chronic cortical and lacunar infarctions as described. 3. Cerebral atrophy. Penetration-Aspiratio n Scale Penetration-Aspiratio n Scale: OBJECTIVE ASSESSMENT OF SWALLOW FUNCTION (QUANTITATIVE ??? PER TRIAL): PENETRATION / ASPIRATION SCALE (EDGAR): 1 = does not enter airway 2 = enters airway/above vocal folds/ejected 3 = enters airway/above vocal folds/not ejected 4 = enters airway/contacts vocal folds/ejected 5 = enters airway/contacts vocal folds/not ejected 6 = enters airway/below vocal folds/ejected 7 = enters airway/below vocal folds/not ejected despite effort 8 = enters airway/below vocal folds/no effort VIDEOFLOROSCOPIC SCALE SCORE (EDGAR): Grade I = aspiration of material that has penetrated into the laryngeal vestibule, intact cough reflex Grade II = aspiration < 10 % of the bolus, intact cough reflex Grade III = aspiration of < 10 % of the bolus, reduced cough reflex or aspiration of > 10 % of the bolus, intact cough reflex Grade IV = aspiration of > 10 % of the bolus, reduced cough reflex Penetration-Aspiratio n Scale Score Thin Liquid via teaspoon: Result: 2= enter airway/above vocal folds/ejected Thin Liquid via teaspoon Trial 2: Result: 2= enter airway/above vocal folds/ejected Thin Liquid via small single sip: cup: Result: 1= does not enter airway Comment: Very small sip, <1 tsp. Thin Liquid via single sip: straw: Result: 7= enters airways/below vocal folds/not ejected despite effort Comment: Initially, pt scored PAS of 1; however, coughing occurred after fluoroscopy was turned off. Prior to next trial trace barium was in the trachea, likely aspiration of pharyngeal residues of previous trial. Thin Liquid via single sip: straw Trial 2: Result: 1= does not enter airway [place] Thick Liquid via small single sip: cup: Result: 5= enters airways/contacts vocal folds/not ejected [place] Thick Liquid via teaspoon: Result: 2= enter airway/above vocal folds/ejected [place] Thick Liquid via teaspoon Trial 2: Result: 2= enter airway/above vocal folds/ejected Pudding via teaspoon: Result: 1= does not enter airway Comment: Esophageal screen - Esophageal screen - Retention in the middle and lower esophagus. [place] Thick Liquid via teaspoon Trial 3: Result: 2= enter airway/above vocal folds/ejected Comment: Esophageal screen - Liquid wash had cleared majority of pudding from the middles esophagus. Some barium retention in the lower esophagus. Discontinued study due to poor attention to task Oral Phase Labial Seal: Escape beyond mid-chin Tongue Control During Bolus Hold: Posterior escape of greater than half of bolus Bolus Transport/Lingual Motion: Repetitive/disorganiz ed tongue motion Oral Residue: Residue collecti (more content not included)... Normal [facility] Phosphoruson 02-25-2025 Phosphate [Mass/Vol] 2.8 mg/dL Normal 2.7-4.5 [facility] Comment on above: Performed By: #### L 499.0043 #### [facility] [address] [place], [place], [id number] Platelet estimateOrdered By: Tabitha Whitfield on 02-25-2025 Platelets LM Ql (Bld) ADEQUATE ADEQ [facility] Screening total cholesterol/ high density lipoprotein (HDL) cholesterol ratioOrdered By: Tabitha Whitfield on 02-25-2025 Cholesterol.total/Choles terol in HDL [Mass ratio] 2.40 {ratio} [facility] Serum or plasma cholesterol in HDL measurement (mass/volume)Ordered By: Tabitha Whitfield on 02-25-2025 Cholesterol in HDL [Mass/Vol] 59 mg/dL Normal [facility] Comment on above: National Cholesterol Education Program (NCEP) guidelines:<40 mg/dL: Low HDL-cholesterol (major risk factor for CHD)>= 60 mg/dL: High HDL-cholesterol (negative risk factor for CHD)HDL-cholesterol is affected by a number of factors, e.g. smoking, exercise, hormones, sex and age. Order Comment: Comme nts: NPO at [place] prior to lipid panel Result Comment: Malini onal Cholesterol Education Program (NCEP) guidelines: <40 mg/dL: Low HDL-cholesterol (major risk factor for CHD) >= 60 mg/dL: High HDL-cholesterol (negative risk factor for CHD) HDL-cholesterol is affected by a number of factors, e.g. smoking, exercise, hormones, sex and age. Performed By: #### L 501.4021, L300.3900, L100.0100, L500.2500, L300.4310 #### [facility] [address] [place], [address] Serum or plasma cholesterol measurement (mass/volume)Ordered By: Tabitha Whitfield on 02-25-2025 Cholesterol [Mass/Vol] 142 mg/dL Normal <=200 [facility] Comment on above: Cholesterol level, D esirable <200 mg/dLBorderline high cholesterol 200-239 mg/dLHigh cholesterol >=240 mg/dLRecommendations of the NCEP Adult Treatment Panel for the following risk-cutoff thresholds for the [place] population. Order Comment: Comme nts: NPO at [place] prior to lipid panel Result Comment: Chol esterol level, Desirable <200 mg/dL Borderline high cholesterol 200-239 mg/dL High cholesterol >=240 mg/dL Recommendations of the NCEP Adult Treatment Panel for the following risk-cutoff thresholds for the [place] population. Performed By: #### L 501.4021, L300.3900, L100.0100, L500.2500, L300.4310 #### [facility] [address] [place], [address] Triglycerides measurementOrd ered By: Tabitha Whitfield on 02-25-2025 Triglyceride [Mass/Vol] 84 mg/dL Normal [facility] Comment on above: The drugs N-Acetylcy steine and Metamizole may falsely depress this assay. Normal range: <150 mg/dLBorderline High: 150-199 mg/dLHigh: 200-499 mg/dLVery High: >500 mg/dL Order Comment: Comme nts: NPO at [place] prior to lipid panel Result Comment: The drugs N-Acetylcysteine and Metamizole may falsely depress this assay. Normal range: <150 mg/dL Borderline High: 150-199 mg/dL High: 200-499 mg/dL Very High: >500 mg/dL Performed By: #### L 501.4021, L300.3900, L100.0100, L500.2500, L300.4310 #### [facility] [address] [place], [address] Absolute lymphocyte countOrd ered By: Jared James on 02-24-2025 Lymphocytes Auto (Unsp spec) [#/Vol] 1.42 10*3/uL 0.83-4.51 [facility] Absolute neutrophil countOrd ered By: Jared James on 02-24-2025 Neutrophils (Bld) [#/Vol] 7.8 10*3/uL High 2.0-7.7 [facility] Activated partial thrombopla stin time (aPTT) in platelet poor plasma by coagulation aOrdered By: Jared James on 02-24-2025 aPTT Coag (PPP) [Time] 28.7 s 24.1-36.2 [facility] Anion gap in Serum or Plasma Ordered By: Jared James on 02-24-2025 Anion gap [Moles/Vol] 14 mmol/L 5-15 [facility] Automated lymphocyte count a s percentage of total leukocytesOrdered By: Jared James on 02-24-2025 Lymphocytes/100 WBC Auto (Unsp spec) 14.0 % Low 19-41 [facility] BUN/creatinine ratioOrdered By: Jared James on 02-24-2025 Urea nitrogen/Creatinine [Mass ratio] 14.9 mg/mg 10-20 [facility] Basic Metabolic Profile (BMP )on 02-24-2025 BUN/CRE 14.9 RATIO Normal 10-20 [facility] Comment on above: Performed By: #### L 501.4021, L300.3900, L100.0100, L500.2500, L300.4310 #### [facility] [address] [place], [address] Calcium [Mass/Vol] 9.5 mg/dL Normal 7.6-11.0 [facility] Comment on above: Performed By: #### L 501.4021, L300.3900, L100.0100, L500.2500, L300.4310 #### [facility] [address] [place], [address] Chloride [Moles/Vol] 103 mmol/L Normal 98-108 [facility] Comment on above: Performed By: #### L 501.4021, L300.3900, L100.0100, L500.2500, L300.4310 #### [facility] [address] [place], [address] CO2 [Moles/Vol] 22.6 mmol/L Normal 21.0-32.0 [facility] Comment on above: Performed By: #### L 501.4021, L300.3900, L100.0100, L500.2500, L300.4310 #### [facility] [address] [place], [address] Creatinine [Mass/Vol] 0.63 mg/dL Low 0.70-1.20 [facility] Comment on above: Performed By: #### L 501.4021, L300.3900, L100.0100, L500.2500, L300.4310 #### [facility] [address] [place], [address] ECRCL 51.76 ml/min Normal 50-250 [facility] Comment on above: Performed By: #### L 501.4021, L300.3900, L100.0100, L500.2500, L300.4310 #### [facility] [address] [place], [address] GAP 14 Normal 5-15 [facility] Comment on above: Performed By: #### L 501.4021, L300.3900, L100.0100, L500.2500, L300.4310 #### [facility] [address] [place], [address] GFR/1.73 sq M.predicted among non-blacks MDRD (S/P/Bld) [Vol rate/Area] 90 mL/min/{1.73_m2} Normal >60 [facility] Comment on above: Result Comment: mL/m in/1.73m2 CKD-EPI Creatinine Equation (2020) Performed By: #### L 501.4021, L300.3900, L100.0100, L500.2500, L300.4310 #### [facility] [address] [place], [address] Glucose [Mass/Vol] 116 mg/dL High 70-99 [facility] Comment on above: Performed By: #### L 501.4021, L300.3900, L100.0100, L500.2500, L300.4310 #### [facility] [address] [place], [address] Potassium [Moles/Vol] 3.4 mmol/L Normal 3.3-5.1 [facility] Comment on above: Performed By: #### L 501.4021, L300.3900, L100.0100, L500.2500, L300.4310 #### [facility] [address] [place], [address] Sodium [Moles/Vol] 140 mmol/L Normal 133-145 [facility] Comment on above: Performed By: #### L 501.4021, L300.3900, L100.0100, L500.2500, L300.4310 #### [facility] [address] [place], [address] Urea nitrogen [Mass/Vol] 9 mg/dL Normal 4-19 [facility] Comment on above: Performed By: #### L 501.4021, L300.3900, L100.0100, L500.2500, L300.4310 #### [facility] [address] [place], [address] Basophil percentageOrdered B y: Jared James on 02-24-2025 Basophils/100 WBC (Bld) 0.6 % 0-1 [facility] Bedside Glucoseon 02-24-2025 FINGERSTICK GLU 113 mg/dL High 74-106 [facility] Comment on above: Result Comment: JOCELYN BUSTOS OF PATIENT CARE PER NURSING PROTOCOL Performed By: #### L 501.4021, L300.3900, L100.0100, L500.2500, L300.4310 #### [facility] [address] [place], [address] CBC W/Diff, Automatedon 02-08 Absolute Lymph 1.42 X10 3/uL Normal 0.83-4.51 [facility] Comment on above: Performed By: #### L 501.4021, L300.3900, L100.0100, L500.2500, L300.4310 #### [facility] [address] [place], [address] Absolute Neut 7.8 X10 3/uL High 2.0-7.7 [facility] Comment on above: Performed By: #### L 501.4021, L300.3900, L100.0100, L500.2500, L300.4310 #### [facility] [address] [place], [address] Basophils/100 WBC (Bld) 0.6 % Normal 0-1 [facility] Comment on above: Performed By: #### L 501.4021, L300.3900, L100.0100, L500.2500, L300.4310 #### [facility] [address] [place], [address] Eosinophils/100 WBC (Bld) 0.4 % Normal 0-5 [facility] Comment on above: Performed By: #### L 501.4021, L300.3900, L100.0100, L500.2500, L300.4310 #### [facility] [address] [place], [address] Erythrocyte distribution width (RBC) [Ratio] 14.4 % Normal 11.6-14.6 [facility] Comment on above: Performed By: #### L 501.4021, L300.3900, L100.0100, L500.2500, L300.4310 #### [facility] [address] [place], [address] Hematocrit (Bld) [Volume fraction] 34.4 % Low 37-47 [facility] Comment on above: Performed By: #### L 501.4021, L300.3900, L100.0100, L500.2500, L300.4310 #### [facility] [address] [place], [address] Hemoglobin (Bld) [Mass/Vol] 11.4 g/dL Low 12.0-15.0 [facility] Comment on above: Performed By: #### L 501.4021, L300.3900, L100.0100, L500.2500, L300.4310 #### [facility] [address] [place], [address] IG% 0.300 Normal 0.0-0.9 [facility] Comment on above: Result Comment: IG% - Immature Granulocytes (promyelocytes, myelocytes and metamyelocytes) > 1% indicates that a LEFT SHIFT is Present. Performed By: #### L 501.4021, L300.3900, L100.0100, L500.2500, L300.4310 #### [facility] [address] [place], [address] Lymphocytes/100 WBC (Bld) 14.0 % Low 19-41 [facility] Comment on above: Performed By: #### L 501.4021, L300.3900, L100.0100, L500.2500, L300.4310 #### [facility] [address] [place], [address] MCH (RBC) [Entitic mass] 29.1 pg Normal 27.0-32.0 [facility] Comment on above: Performed By: #### L 501.4021, L300.3900, L100.0100, L500.2500, L300.4310 #### [facility] [address] [place], [address] MCHC (RBC) [Mass/Vol] 33.1 g/dL Normal 32-36 [facility] Comment on above: Performed By: #### L 501.4021, L300.3900, L100.0100, L500.2500, L300.4310 #### [facility] [address] [place], [address] MCV (RBC) [Entitic vol] 87.8 fL Normal 81-99 [facility] Comment on above: Performed By: #### L 501.4021, L300.3900, L100.0100, L500.2500, L300.4310 #### [facility] [address] [place], [address] Monocytes/100 WBC (Bld) 7.6 % Normal 0-10 [facility] Comment on above: Performed By: #### L 501.4021, L300.3900, L100.0100, L500.2500, L300.4310 #### [facility] [address] [place], [address] Neutrophils/100 WBC (Bld) 77.1 % High 47-70 [facility] Comment on above: Performed By: #### L 501.4021, L300.3900, L100.0100, L500.2500, L300.4310 #### [facility] [address] [place], [address] Nucleated RBC (Bld) [#/Vol] 0 10*3/uL Normal 0-5 [facility] Comment on above: Performed By: #### L 501.4021, L300.3900, L100.0100, L500.2500, L300.4310 #### [facility] [address] [place], [address] Platelet mean volume (Bld) [Entitic vol] 10.2 fL Normal 6.2-12.0 [facility] Comment on above: Performed By: #### L 501.4021, L300.3900, L100.0100, L500.2500, L300.4310 #### [facility] [address] [place], [address] Platelets (Bld) [#/Vol] 406 10*3/uL Normal 150-450 [facility] Comment on above: Performed By: #### L 501.4021, L300.3900, L100.0100, L500.2500, L300.4310 #### [facility] [address] [place], [address] RBC (Bld) [#/Vol] 3.92 10*6/uL Low 4.2-5.4 [facility] Comment on above: Performed By: #### L 501.4021, L300.3900, L100.0100, L500.2500, L300.4310 #### [facility] [address] [place], [address] RDW SD 46.4 fl High 35.1-43.9 [facility] Comment on above: Performed By: #### L 501.4021, L300.3900, L100.0100, L500.2500, L300.4310 #### [facility] [address] [place], [address] WBC (Bld) [#/Vol] 10.1 10*3/uL Normal 4.4-11.0 [facility] Comment on above: Performed By: #### L 501.4021, L300.3900, L100.0100, L500.2500, L300.4310 #### [facility] [address] [place], [address] Carbon dioxide, total [Moles /volume] in Central venous bloodOrdered By: Jared James on 02-24-2025 CO2 [Moles/Vol] 22.6 mmol/L 21.0-32.0 [facility] Chloride assayOrdered By: Florin James on 02-24-2025 Chloride [Moles/Vol] 103 mmol/L 98-108 [facility] Echo Completeon 02-24-2025 Echo Complete [facility] [address] [place] [address] Echo Complete 02/25/25 0926 MR#: [id number] Acct: [id number] Name: WILLEM EVANS Rep #: [id number] : 1945 79 From: Vita Aden MD Attending Dr: Dr. Tabitha Whitfield MD Status: ADM IN Ordering Dr: Tabitha Whitfield MD Date: 02/24/25 Location: [facility] Sex: F C Admitted: 02/24/25 Reason For Study Reason For Study: TIA/STROKE Procedure This was a 2D Doppler, Color Flow transthoracic echocardiogram. Exam performed portable in patient room. Left Ventricle Normal LV size. Mild concentric left ventricular hypertrophy. Mild inferior hypokinesis. Septal wall motion consistent with left bundle branch block. Estimated LVEF 55%. Stage I diastolic dysfunction. Right Ventricle Normal right ventricle. Atria The left and right atria are normal. Mitral Valve Trivial mitral valve insufficiency. Tricuspid Valve Trivial tricuspid valve insufficiency. Unable to estimate RV systolic pressure due to insufficient tricuspid regurgitant envelope. Aortic Valve Trisinus/trileaflet aortic valve. Mild (1+) aortic valve insufficiency. Pulmonic Valve The pulmonic valve is not well visualized. Trivial pulmonic valve insufficiency. Great Vessels Normal sized aortic root. Pericardium/Pleural No pericardial effusion. MMode/2D Measurements Calculations LVIDd: 3.7 cm IVSd: 1.3 cm Ao root diam: 3.2 cm LVIDs: 2.6 cm LVPWd: 1.4 cm RVDd: 3.2 cm FS: 29.6 % LAV(MOD-bp): 49.9 ml LVAd ap2: 23.3 cm2 SV(MOD-sp2): 32.2 ml LAV(MOD-bp) Indexed: 30.2 ml/m2 LVLd ap2: 8.0 cm SI(MOD-sp2): 19.5 ml/m2 LAV(MOD-sp2): 46.4 ml EDV(MOD-sp2): 56.3 ml LAV(MOD-sp4): 47.0 ml EDV(sp2-el): 57.8 ml LVAs ap2: 14.1 cm2 LVLs ap2: 7.0 cm ESV(MOD-sp2): 24.1 ml ESV(sp2-el): 23.9 ml EF(MOD-sp2): 57.2 % LA A4 area: 18.2 cm2 LA dimension(2D): 3.3 cm RA A4 area: 14.2 cm2 TAPSE: 2.3 cm Time Measurements MV dec time: 0.25 sec Doppler Measurements Calculations MV A max vanesa: 84.9 cm/sec Lat Peak E' Vanesa: 7.3 cm/sec Med Peak E' Vanesa: 4.8 cm/sec Ao V2 max: 138.1 cm/sec LV V1 max: 98.0 cm/sec PA V2 max: 111.6 cm/sec Ao max P.6 mmHg LV V1 max P.8 mmHg TR max vanesa: 267.7 cm/sec TR max P.7 mmHg ECHO/Echo Complete Interpretation Summary Mild concentric left ventricular hypertrophy. Mild inferior hypokinesis. Septal wall motion consistent with left bundle branch block. Estimated LVEF 55%. Stage I diastolic dysfunction. Mild (1+) aortic valve insufficiency. Ordering Physician: Tabitha Whitfield Referring Physician: CITLALY العراقي Performed By: Ivana Ramos RDCS 02/25/25 1318 Date Vita Aden MD CC: Dr. Tabitha Whitfield MD; Dr. Citlaly العراقي MD Date Dictated: 02/25/25925 Date Transcribed: 02/25/25 1318 Nut Tapper: Signed Normal [facility] Emergency Department Summary on 02-24-2025 Emergency Department Summary [facility] Medical Records Department [address] [place] [address] Emergency Department Summary 02/24/25 MR#: [id number] Acct: [id number] Name: WILLEM EVANS Rep #: [id number] : 1945 79 From: Jared James DO PCP: Dr. Citlaly العراقي MD Status:REG ER Location: ED HPI History of Present Illness Chief Complaint: Neuro S/Sx Narrative Narrative: Patient is a 79-year-old female with past medical history of dementia, hyperlipidemia, anxiety, IBS, depression who presented to the emergency department with concern for left-sided facial droop, left arm weakness. According to the who provides history of present illness secondary to her dementia he states that few days ago he noted that she had some left-sided facial droop. He states that yesterday she had blood work obtained around 9:00 in the morning and noted that she had some weakness in her left arm as well that had progressively worsened into today therefore they had her sent here for further evaluation and management. They deny blood thinning medications denies any falls. was also inquiring about likely placement into a facility as he states that he cannot care for her anymore at home. 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 Depression Inflammatory bowel disease Anxiety Home Medications ???Medication ???Instructions ???Recorded ???Last Taken ???Type fluoxetine 40 mg capsule 60 mg PO DAILY 10/17/21 Unknown Hi story multivitamin 1 tab PO DAILY 10/17/21 Unknown Hi story buspirone 10 mg tablet 10 mg PO TID 02/28/24 Unknown Hist ory melatonin 10 mg capsule 10 mg PO QHS PRN sleep 02/28/24 Un known History memantine 10 mg tablet 10 mg PO BID 02/28/24 Unknown Hist ory polyethylene glycol 3350 17 17 g PO DAILY 03/08/24 Unknown His tory gram/dose oral powder (ClearLax) sennosides 8.6 mg tablet 17.2 mg PO BID 03/08/24 Unknown Hi story (Evac-U-Gen (sennosides)) gabapentin 100 mg capsule 100 mg PO TID PRN PRN for pain 06/04 Unknown History losartan 25 mg tablet 25 mg PO DAILY 12/18/24 Unknown Hi story trazodone 50 mg tablet 50 mg PO QHS 12/18/24 Unknown Hist ory Allergy/AdvReac Type Severity Reaction Status Date / Time No Known Allergies Allergy Verified 02/24/25 09:29 Social History household members: spouse housing: house Smoking Status: Never smoker ROS ROS ED ROS Narrative Constitutional: Denies headache Eyes: Denies double vision blurry vision Cardiovascular: Denies chest pain Respiratory: Denies shortness of breath Abdomen: Denies nausea vomit diarrhea Neurological: Complains of left-sided facial droop left arm weakness as noted above Musculoskeletal: Denies back pain Skin: Denies any rashes or lesions EXAM Physical Exam Narrative Exam Narrative: General: Patient lying in bed rest comfortably did not appear to be in acute distress Head: Atraumatic, normocephalic Eyes: PERRL bilaterally, EOMI bilaterally, no conjunctival injection noted Neck: Soft, supple, trachea midline Cardiovascular: Regular rate and rhythm Respiratory: Clear to auscultation bilaterally Extremities: +2/5 strength noted in the left upper extremity and the left lower extremity, +4/5 strength noted in the right upper and lower extremity Neurological: Patient is following commands knew that she was at a hospital she knew that it was 2024 she was confused and thought it was spring. She was able to tell me there was a clock on the wall. Patient does have significant left arm weakness as well as left-sided facial droop. Patient has left lower extremity weakness more on the left when compared to the right although both are weak Skin: Warm, dry, intact no rashes or lesions noted Const Vital Signs: 02/24/25 09:29 02/24/25 09:44 02/24/25 09:44 Temperature 98.0 F Temperature Source Oral Pulse Rate 85 78 Respiratory Rate 22 H 21 H Blood Pressure 152/85 H 154/77 H Blood Pressure Mean 107 102 Pulse Ox 95 95 Oxygen Delivery Method Room Air Room Air Room Air 02/24/25 10:08 02/24/25 11:27 Temperature Temperature Source Pulse Rate 77 73 Respiratory Rate 16 18 Blood Pressure 165/80 H 152/92 H Blood Pressure Mean 108 112 Pulse Ox 97 98 Oxygen Delivery Method Room Air MDM MDM MDM Narrative Medical decision making narrative: Patient is a 79-year-old female who presented to the emergency department for concern for left-sided facial droop and left arm weakness. On the differential diagnosis includes but limited to intracranial hemorrhage, ischemic stroke, hypoglycemia, electrolyte abnormality. Once workup is obtained and reviewed (more content not included)... Normal [facility] Eosinophil percentageOrdered By: Jared James on 02-24-2025 Eosinophils/100 WBC (Bld) 0.4 % 0-5 [facility] Erythrocyte distribution wid th ratioOrdered By: Jared James on 02-24-2025 Erythrocyte distribution width (RBC) [Ratio] 14.4 % 11.6-14.6 [facility] Erythrocyte distribution wid th standard deviationOrdered By: Jared James on 02-24-2025 Erythrocyte distribution width (RBC) [Ratio] 46.4 fl High 35.1-43.9 [facility] Glomerular filtration rate ( GFR) estimation/1.73 sq m using serum, plasma, or whole bOrdered By: Jared James on 02-24-2025 GFR/1.73 sq M.predicted among non-blacks MDRD (S/P/Bld) [Vol rate/Area] 90 mL/min/{1.73_m2} >60 [facility] Comment on above: mL/min/1.73m2 CKD-EP I Creatinine Equation (2020) [facility] deOrdered By: Jared James on 02-24-2025 Glucose [Mass/Vol] 113 mg/dL High 74-106 [facility] Comment on above: MANAGEMENT OF PATIEN T CARE PER NURSING PROTOCOL H AND P Exam - Hospitaliston 02-24-2025 H&P Exam - Hospitalist [facility] Medical Records Department [address] [place] [address] H P Exam - Hospitalist 02/24/25 1227 MR#: [id number] Acct: [id number] Name: WILLEM EVANS Rep #: [id number] : 1945 79 From: Tabitha Whitfield MD PCP: Dr. Citlaly العراقي MD Status:ADM IN Location: [facility] [id number] HPI - General General Date of Admission: 02/24/25 HPI Narrative WILLEM EVANS, is a 79 F who presents left-sided weakness and facial droop. Patient has history of CVA in December 2024, did receive TNK and was transferred to a [facility]. 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 Patient's daughter had noticed patient with a slight left facial droop 2 days prior to patient's admission. This was followed by subjective weakness involving the left lower extremity the following day. She did check up on her mom and found patient to have flaccid paralysis involving the left upper extremity necessitating patient being brought to the emergency department. Imaging studies obtained demonstrated a high-grade stenosis in the proximal M1 horizontal component of the right middle cerebral, measuring 0.5 cm in length. Call was placed for patient to have been transferred to [facility]. Patient's daughter however requested further transfer not to take place. Patient family wanted patient placed placed in the facility instead. 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 Depression Inflammatory bowel disease Anxiety Home Medications ???Medication ???Instructions ???Recorded ???Last Taken ???Type fluoxetine 40 mg capsule 60 mg PO DAILY 10/17/21 Unknown Hi story multivitamin 1 tab PO DAILY 10/17/21 Unknown Hi story buspirone 10 mg tablet 10 mg PO TID 02/28/24 Unknown Hist ory melatonin 10 mg capsule 10 mg PO QHS PRN sleep 02/28/24 Un known History memantine 10 mg tablet 10 mg PO BID 02/28/24 Unknown Hist ory polyethylene glycol 3350 17 17 g PO DAILY 03/08/24 Unknown His tory gram/dose oral powder (ClearLax) sennosides 8.6 mg tablet 17.2 mg PO BID 03/08/24 Unknown Hi story (Evac-U-Gen (sennosides)) gabapentin 100 mg capsule 100 mg PO TID PRN PRN for pain 06/04 Unknown History losartan 25 mg tablet 25 mg PO DAILY 12/18/24 Unknown Hi story trazodone 50 mg tablet 50 mg PO QHS 12/18/24 Unknown Hist ory Allergy/AdvReac Type Severity Reaction Status Date / Time No Known Allergies Allergy Verified 02/24/25 09:29 Social History household members: spouse housing: house Smoking Status: Never smoker ROS ROS Narrative Difficult to elicit with patient being dysarthric Vital Signs Vital Signs Vital Signs: 02/24/25 09:29 02/24/25 09:44 02/24/25 09:44 Temperature 98.0 F Temperature Source Oral Pulse Rate 85 78 Respiratory Rate 22 H 21 H Blood Pressure 152/85 H 154/77 H Blood Pressure Mean 107 102 Pulse Ox 95 95 Oxygen Delivery Method Room Air Room Air Room Air 02/24/25 10:08 02/24/25 11:27 Temperature Temperature Source Pulse Rate 77 73 Respiratory Rate 16 18 Blood Pressure 165/80 H 152/92 H Blood Pressure Mean 108 112 Pulse Ox 97 98 Oxygen Delivery Method Room Air Weight Weight: 57.5 kg Body Mass Index (BMI) 20.5 Physical Exam Narrative GENERAL: Dysarthric HEENT: Atraumatic; normocephalic EYES; Anicteric, Normal Conjunctiva NECK; supple, normal thyroid, RESPIRATORY: Diminished to auscultation CARDIOVASCULAR: Regular S1 S2, GI: soft, normoactive bowel sounds, : No Renal angle tenderness; EXTREMITIES: No edema, no clubbing, MUSCULOSKELETAL: no muscle wasting NEURO: Awake; left facial droop with flaccid paralysis involving the left upper extremity SKIN: No Rash PSYCH; Flat affect Results Lab / Micro Data 02/24/25 09:35 02/24/25 09:35 Labs: Laboratory Results - last 24 hr 02/24/25 09:35: WBC 10.1, RBC 3.92 L, Hgb 11.4 L, Hct 34.4 L, MCV 87.8, MCH 29.1, MCHC 33.1, RDW Std Deviation 46.4 H, RDW Coeff of Shon 14.4, Plt Count 406, MPV 10.2, Immature Gran % (Auto) 0.300, Neut % (Auto) 77.1 H, Lymph % (Auto) 14.0 L, Wilcox % (Auto) 7.6, Eos % (Auto) 0.4, Baso % (Auto) 0.6, A bsolute Neuts (auto) 7.8 H, Absolute Lymphs (auto) 1.42, Nucleated RBC % 0, PT 12.8, INR 1.0, APTT 28.7, Sodium 140, Potassium 3.4, Chloride 103, Carbon Dioxide 22.6, Anion Gap 14, BUN 9, Creatinine 0.63 L, Estim Creat Clear Calc 51.76, Est GFR (MDRD) Non-Af 90, BUN/Creatinine Ratio 14.9, Glucose 116 H, Calcium 9.5, Troponin T High Sens 20 H D 02/24/25 09:39: POC Glucose 113 H Imaging Radiology Impression Brain CT 02/24/25 10: (more content not included)... Normal [facility] Hematocrit Auto (Bld) [Volum e fraction]Ordered By: Jared James on 02-24-2025 Hematocrit (Bld) [Volume fraction] 34.4 % Low 37-47 [facility] Hemoglobin measurementOrdere d By: Jared James on 02-24-2025 Hemoglobin (Bld) [Mass/Vol] 11.4 g/dL Low 12.0-15.0 [facility] Immature granulocytes/100 WB C Auto (Bld)Ordered By: Jared James on 02-24-2025 Immature granulocytes/100 WBC (Bld) 0.300 % 0.0-0.9 [facility] Comment on above: IG% - Immature Granu locytes (promyelocytes, myelocytes and metamyelocytes) > 1% indicates that a LEFT SHIFT is Present. International normalized rat io (INR) calculationOrdered By: Jared James on 02-24-2025 INR Coag (Bld) [Relative time] 1.0 {INR} [facility] L499.0042on 02-24-2025 Trop T High Sen 16 ng/L High <=14 [facility] Comment on above: Result Comment: Hemo lysis present, Results??could be affected. ?? Performed By: #### L 501.4021, L300.3900, L100.0100, L500.2500, L300.4310 #### [facility] [address] [place], [address] L499.0043on 02-24-2025 Trop T High Sen 19 ng/L High <=14 [facility] Comment on above: Performed By: #### L 501.4021, L300.3900, L100.0100, L500.2500, L300.4310 #### [facility] [address] [place], [place], [id number] (299) L501.4021on 02-24-2025 Trop T High Sen 20 ng/L High <=14 [facility] Comment on above: Performed By: #### L 501.4021, L300.3900, L100.0100, L500.2500, L300.4310 #### [facility] [address] [place], [place], [id number] MCV (mean corpuscular volume ) determinationOrdered By: Jared James on 02-24-2025 MCV (RBC) [Entitic vol] 87.8 fL 81-99 [facility] Mean corpuscular hemoglobin (MCH) determinationOrdered By: Jared James on 02-24-2025 MCH (RBC) [Entitic mass] 29.1 pg 27.0-32.0 [facility] Mean corpuscular hemoglobin concentration (MCHC) determinationOrdered By: Jared James on 02-24-2025 MCHC (RBC) [Mass/Vol] 33.1 g/dL 32-36 [facility] Mean platelet volume determi nationOrdered By: Jared James on 02-24-2025 Platelet mean volume (Bld) [Entitic vol] 10.2 fL 6.2-12.0 [facility] Monocyte percentageOrdered B y: Jared James on 02-24-2025 Monocytes/100 WBC (Bld) 7.6 % 0-10 [facility] Neutrophil percentageOrdered By: Jared James on 02-24-2025 Neutrophils/100 WBC (Bld) 77.1 % High 47-70 [facility] Nucleated red blood cell per centageOrdered By: Jared James on 02-24-2025 Nucleated RBC/100 WBC (Bld) [Ratio] 0 % 0-5 [facility] Partial Thromboplast Timeon 02-24-2025 aPTT Coag (Bld) [Time] 28.7 s Normal 24.1-36.2 [facility] Comment on above: Performed By: #### L 501.4021, L300.3900, L100.0100, L500.2500, L300.4310 #### [facility] [address] [place], [address] Platelet countOrdered By: Florin James on 02-24-2025 Platelets (Bld) [#/Vol] 406 10*3/uL 150-450 [facility] Potassium measurement (mass/ volume)Ordered By: Jared James on 02-24-2025 Potassium (Unsp spec) [Mass/Vol] 3.4 mmol/L 3.3-5.1 [facility] Prothrombin Time w/INRon INR Coag (PPP) [Relative time] 1.0 {INR} Normal [facility] Comment on above: Performed By: #### L 501.4021, L300.3900, L100.0100, L500.2500, L300.4310 #### [facility] [address] [place], [address] PT Coag (PPP) [Time] 12.8 s Normal 11.7-14.9 [facility] Comment on above: Performed By: #### L 501.4021, L300.3900, L100.0100, L500.2500, L300.4310 #### [facility] [address] [place], [address] Prothrombin timeOrdered By: Jared James on 02-24-2025 PT Coag (PPP) [Time] 12.8 s 11.7-14.9 [facility] RBC Auto (Bld) [#/Vol]Ordere d By: Jared James on 02-24-2025 RBC (Bld) [#/Vol] 3.92 10*6/uL Low 4.2-5.4 [facility] STROKE Brain/Head without Co nton 02-24-2025 STROKE Brain/Head without Cont [facility] Imaging Services [address] [place], [place] [address] STROKE Brain/Head without Cont MR#: [id number] Acct: [id number] Name: WILLEM EVANS Rep #: [id number] : 1945 F 79 From: Citlaly Alejandra MD PCP: Dr. Citlaly العراقي MD Status: REG ER Study: STROKE Brain/Head without Cont Date of Exam: 0 02/24/25 Exam# [id number] Ordering Dr: Jared James DO EXAM: CT Head Without Intravenous Contrast CLINICAL INDICATION: NEURO DEFICIT, ACUTE, STROKE SUSPECTED TECHNIQUE: Axial computed tomography images of the head/brain without intravenous contrast. This CT exam was performed using one or more of the following dose reduction techniques: automated exposure control, adjustment of the mA and/or kV according to patient size, and/or use of iterative reconstruction technique. 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 Areas of decreased attenuation in the deep cerebral white matter are consistent with small vessel ischemic/degenerative changes. No acute intracranial hemorrhage, midline shift or mass effect. If symptoms persist, further evaluation with MRI is recommended. BONES/JOINTS: Unremarkable. No acute fracture. SOFT TISSUES: Unremarkable. SINUSES: Unremarkable as visualized. No acute sinusitis. MASTOID AIR CELLS: Unremarkable as visualized. No mastoid effusion. CT/STROKE Brain/Head without Cont IMPRESSION: 1. Small vessel ischemic/degenerative changes. 2. No acute intracranial hemorrhage, midline shift or mass effect. If symptoms persist, further evaluation with MRI is recommended. Red Alert: No acute intracranial hemorrhage. The critical information above was relayed directly by me by telephone to Jared James on 02/24/2025 at 10:37 am with readback verification. Reading Location: [facility] CC: Dr. Citlaly العراقي MD; Dr. Jared James DO Nut Tapper: Signed Normal [facility] STROKE CTA Head AND Neck W/C onon 02-24-2025 STROKE CTA Head AND Neck W/Con [facility] Imaging Services [address] [place], [place] [address] STROKE CTA Head AND Neck W/Con MR#: [id number] Acct: [id number] Name: WILLEM EVANS Rep #: [id number] : 1945 F 79 From: Daniel Reddy MD PCP: Dr. Citlaly العراقي MD Status: REG ER Study: STROKE CTA Head AND Neck W/Con Date of Exam: 0 02/24/25 Exam# [id number] Ordering Dr: Jared James DO PROCEDURE: STROKE CTA HEAD AND NECK W/CON 02/24/2025 REASON FOR EXAM: NEURO DEFICIT, ACUTE, STROKE SUSPECTED TECHNIQUE: STROKE CTA HEAD AND NECK W/CON Multiplanar Sagittal and Coronal images were obtained. CONTRAST: 100 cc Isovue 370 One or more dose reduction techniques were used (e.g., Automated exposure control, adjustment of the mA and/or kV according to patient size, use of iterative reconstruction technique). RADIATION DOSE SUMMARY: DLP: 1199 mGycm COMPARISON: None FINDINGS: Aortic Arch: Patent Brachiocephalic and Subclavians: Patent RIGHT Carotid: Right CCA: Patent, plaque is noted Right ICA: Patent Maximum stenosis (NASCET): 0 % Right ECA: Patent LEFT Carotid: Left CCA: Patent, plaque is noted Left ICA: Patent Maximum stenosis (NASCET): 0 % Left ECA: Patent Vertebrals: Patent RIGHT Vertebral: Patent LEFT Vertebral: Patent Anatomy: Patent, plaque is noted in the carotid siphons Aneurysm or avm: None Anterior cerebral arteries: Patent Middle cerebral arteries: The left middle cerebral is widely patent. There is a high-grade stenosis in the proximal M1 horizontal component of the right middle cerebral, measuring 0.5 cm in length, axial image 360- 364/522. Basilar artery: Patent Posterior cerebral arteries: Patent Other major branches of the posterior circulation: Patent Major venous structures: Patent Other findings: Neck: Unremarkable lungs: Clear bones: There is no acute bony abnormality. CT/STROKE CTA Head AND Neck W/Con IMPRESSION: There is a high-grade stenosis in the proximal M1 horizontal component of the right middle cerebral, measuring 0.5 cm in length, axial image 360-246/906. Critical results were discussed with Dr. James by Dr. Reddy at the time of dictation. Reading Location: [facility] CC: Dr. Citlaly العراقي MD; Dr. Jared James DO Nut Tapper: Signed Normal [facility] Serum creatinine measurement (mass/volume)Ordered By: Jared James on 02-24-2025 Creatinine [Mass/Vol] 0.63 mg/dL Low 0.70-1.20 [facility] Serum glucose measurement (m ass/volume)Ordered By: Jared James on 02-24-2025 Glucose [Mass/Vol] 116 mg/dL High 70-99 [facility] Serum or plasma calcium maycol urement (mass/volume)Ordered By: Jared James on 02-24-2025 Calcium [Mass/Vol] 9.5 mg/dL 7.6-11.0 [facility] Serum or plasma urea nitroge n measurement (mass/volume)Ordered By: Jared James on 02-24-2025 Urea nitrogen [Mass/Vol] 9 mg/dL 4-19 [facility] Sodium levelOrdered By: Prisca James on 02-24-2025 Sodium [Moles/Vol] 140 mmol/L 133-145 [facility] Troponin T.cardiac [Mass/vol ume] in Serum or Plasma by High sensitivity methodOrdered By: Jared James on 02-24-2025 Troponin T.cardiac High sensitivity method [Mass/Vol] 19 ng/L High <14 [facility] Troponin T.cardiac High sensitivity method [Mass/Vol] 16 ng/L High <14 [facility] Comment on above: Hemolysis present, R esults could be affected. Troponin T.cardiac High sensitivity method [Mass/Vol] 20 ng/L High <14 [facility] Comment on above: Delta: 11 on 5-1615 White blood cell (WBC) count Ordered By: Jared James on 02-24-2025 WBC (Bld) [#/Vol] 10.1 10*3/uL 4.4-11.0 [facility] CBC W Auto Differential pane l (Bld)on 02-23-2025 Basophils (Bld) [#/Vol] 0.08 10*3/uL Normal <0.11 [facility] Comment on above: Order Comment: Speci men Type: BLOOD SPECIMEN Ordering Facility: [facility] Address: [address] [place] [address] Performed By: #### 5 7021-8 #### [facility] CLIA [id number] [address] [place] [address] [place] Basophils/100 WBC (Bld) 1.1 % Normal [facility] Comment on above: Order Comment: Speci men Type: BLOOD SPECIMEN Ordering Facility: [facility] Address: [address] [place] [address] Performed By: #### 5 7021-8 #### [facility] CLIA [id number] [address] [place] [address] [place] Differential cell count method Nom (Bld) Auto Normal [facility] Comment on above: Order Comment: Speci men Type: BLOOD SPECIMEN Ordering Facility: [facility] Address: [address] [place] [address] Performed By: #### 5 7021-8 #### [facility] CLIA [id number] [address] [place] [address] [place] Eosinophils (Bld) [#/Vol] 0.05 10*3/uL Normal <0.46 [facility] Comment on above: Order Comment: Speci men Type: BLOOD SPECIMEN Ordering Facility: [facility] Address: [address] [place] [address] Performed By: #### 5 7021-8 #### [facility] CLIA [id number] [address] [place] [address] [place] Eosinophils/100 WBC (Bld) 0.7 % Normal [facility] Comment on above: Order Comment: Speci men Type: BLOOD SPECIMEN Ordering Facility: [facility] Address: [address] [place] [address] Performed By: #### 5 7021-8 #### [facility] CLIA [id number] [address] [place] [address] [place] Erythrocyte distribution width (RBC) [Ratio] 14.4 % Normal 11.5-15.0 [facility] Comment on above: Order Comment: Speci men Type: BLOOD SPECIMEN Ordering Facility: [facility] Address: [address] [place] [address] Performed By: #### 5 7021-8 #### [facility] CLIA [id number] [address] [place] [address] [place] Hematocrit (Bld) [Volume fraction] 35.8 % Low 36.0-46.0 [facility] Comment on above: Order Comment: Speci men Type: BLOOD SPECIMEN Ordering Facility: [facility] Address: [address] [place] [address] Performed By: #### 5 7021-8 #### [facility] CLIA [id number] [address] [place] [address] [place] Hemoglobin (Bld) [Mass/Vol] 11.5 g/dL Normal 11.5-15.5 [facility] Comment on above: Order Comment: Speci men Type: BLOOD SPECIMEN Ordering Facility: [facility] Address: [address] [place] [address] Performed By: #### 5 7021-8 #### [facility] CLIA [id number] [address] [place] [address] [place] Immature granulocytes (Bld) [#/Vol] 10*3/uL Normal <0.10 [facility] Comment on above: Order Comment: Speci men Type: BLOOD SPECIMEN Ordering Facility: [facility] Address: [address] [place] [address] Performed By: #### 5 7021-8 #### [facility] CLIA [id number] [address] [place] [address] [place] Immature granulocytes/100 WBC (Bld) 0.3 % Normal [facility] Comment on above: Order Comment: Speci men Type: BLOOD SPECIMEN Ordering Facility: [facility] Address: [address] [place] [address] Performed By: #### 5 7021-8 #### [facility] CLIA [id number] [address] [place] [address] [place] Lymphocytes (Bld) [#/Vol] 1.40 10*3/uL Normal 1.00-4.00 [facility] Comment on above: Order Comment: Speci men Type: BLOOD SPECIMEN Ordering Facility: [facility] Address: [address] [place] [address] Performed By: #### 5 7021-8 #### [facility] CLIA [id number] [address] [place] [address] [place] Lymphocytes/100 WBC (Bld) 18.5 % Normal [facility] Comment on above: Order Comment: Speci men Type: BLOOD SPECIMEN Ordering Facility: [facility] Address: [address] [place] [address] Performed By: #### 5 7021-8 #### [facility] CLIA [id number] [address] [place] [address] [place] MCH (RBC) [Entitic mass] 28.8 pg Normal 26.0-34.0 [facility] Comment on above: Order Comment: Speci men Type: BLOOD SPECIMEN Ordering Facility: [facility] Address: [address] [place] [address] Performed By: #### 5 7021-8 #### [facility] CLIA [id number] [address] [place] [address] [place] MCHC (RBC) [Mass/Vol] 32.1 g/dL Normal 30.5-36.0 [facility] Comment on above: Order Comment: Speci men Type: BLOOD SPECIMEN Ordering Facility: [facility] Address: [address] [place] [address] Performed By: #### 5 7021-8 #### [facility] CLIA [id number] [address] [place] [address] [place] MCV (RBC) [Entitic vol] 89.5 fL Normal 80.0-100.0 [facility] Comment on above: Order Comment: Speci men Type: BLOOD SPECIMEN Ordering Facility: [facility] Address: [address] [place] [address] Performed By: #### 5 7021-8 #### [facility] CLIA [id number] [address] [place] [address] [place] Monocytes (Bld) [#/Vol] 0.65 10*3/uL Normal <0.87 [facility] Comment on above: Order Comment: Speci men Type: BLOOD SPECIMEN Ordering Facility: [facility] Address: [address] [place] [address] Performed By: #### 5 7021-8 #### [facility] CLIA [id number] [address] [place] [address] [place] Monocytes/100 WBC (Bld) 8.6 % Normal [facility] Comment on above: Order Comment: Speci men Type: BLOOD SPECIMEN Ordering Facility: [facility] Address: [address] [place] [address] Performed By: #### 5 7021-8 #### [facility] CLIA [id number] [address] [place] [address] [place] Neutrophils (Bld) [#/Vol] 5.38 10*3/uL Normal 1.45-7.50 [facility] Comment on above: Order Comment: Speci men Type: BLOOD SPECIMEN Ordering Facility: [facility] Address: [address] [place] [address] Performed By: #### 5 7021-8 #### [facility] CLIA [id number] [address] [place] [address] [place] Neutrophils/100 WBC (Bld) 70.8 % Normal [facility] Comment on above: Order Comment: Speci men Type: BLOOD SPECIMEN Ordering Facility: [facility] Address: [address] [place] [address] Performed By: #### 5 7021-8 #### [facility] CLIA [id number] [address] [place] [address] [place] Nucleated RBC (Bld) [#/Vol] 10*3/uL Normal <0.01 [facility] Comment on above: Order Comment: Speci men Type: BLOOD SPECIMEN Ordering Facility: [facility] Address: [address] [place] [address] Performed By: #### 5 7021-8 #### [facility] CLIA [id number] [address] [place] [address] [place] Nucleated RBC/100 WBC (Bld) [Ratio] 0.0 /100 WBC Normal [facility] Comment on above: Order Comment: Speci men Type: BLOOD SPECIMEN Ordering Facility: [facility] Address: [address] [place] [address] Performed By: #### 5 7021-8 #### [facility] CLIA [id number] [address] [place] [address] [place] Platelet mean volume (Bld) [Entitic vol] 10.4 fL Normal 9.0-12.7 [facility] Comment on above: Order Comment: Speci men Type: BLOOD SPECIMEN Ordering Facility: [facility] Address: [address] [place] [address] Performed By: #### 5 7021-8 #### [facility] CLIA [id number] [address] [place] [address] [place] Platelets (Bld) [#/Vol] 447 10*3/uL High 150-400 [facility] Comment on above: Order Comment: Speci men Type: BLOOD SPECIMEN Ordering Facility: [facility] Address: [address] [place] [address] Performed By: #### 5 7021-8 #### [facility] CLIA [id number] [address] [place] [address] [place] RBC (Bld) [#/Vol] 4.00 10*6/uL Normal 3.90-5.20 [facility] Comment on above: Order Comment: Speci men Type: BLOOD SPECIMEN Ordering Facility: [facility] Address: [address] [place] [address] Performed By: #### 5 7021-8 #### [facility] CLIA [id number] [address] [place] [address] [place] WBC (Bld) [#/Vol] 7.58 10*3/uL Normal 3.70-11.00 [facility] Comment on above: Order Comment: Speci men Type: BLOOD SPECIMEN Ordering Facility: [facility] Address: [address] [place] [address] Performed By: #### 5 7021-8 #### [facility] CLIA [id number] [address] [place] [address] [place] Comprehensive metabolic 2000 panelon 02-23-2025 Albumin [Mass/Vol] 4.1 g/dL Normal 3.9-4.9 [facility] Comment on above: Order Comment: Speci men Type: BLOOD SPECIMENOrdering Facility: [facility] Address: [address] [place] [address] Performed By: #### 2 4323-8, 14629-1 ####[facility] [id number] [place] [address] [place] ALP [Catalytic activity/Vol] 114 U/L Normal 34-123 [facility] Comment on above: Order Comment: Speci men Type: BLOOD SPECIMENOrdering Facility: [facility] Address: [address] [id number] Performed By: #### 2 4323-8, 43404-4 ####[facility] [id number] [address] [address] [place] ALT [Catalytic activity/Vol] 19 U/L Normal 7-38 [facility] Comment on above: Order Comment: Speci men Type: BLOOD SPECIMENOrdering Facility: [facility] Address: [address] [place], [place] [address] Performed By: #### 2 4323-8, 27223-3 ####[facility] [id number] [place] [id number] [place] Anion gap [Moles/Vol] 14 mmol/L Normal 8-15 [facility] Comment on above: Order Comment: Speci men Type: BLOOD SPECIMENOrdering Facility: [facility] Address: [address] [place] [address] Performed By: #### 2 4323-8, 65328-8 ####[facility] [id number] [place] [id number] [place] AST [Catalytic activity/Vol] 26 U/L Normal 13-35 [facility] Comment on above: Order Comment: Speci men Type: BLOOD SPECIMENOrdering Facility: [facility] Address: [address] [place], [place] [address] Performed By: #### 2 4323-8, 38276-2 ####[facility] [id number] [address] [address] [place] Bilirubin [Mass/Vol] 0.4 mg/dL Normal 0.2-1.3 [facility] Comment on above: Order Comment: Speci men Type: BLOOD SPECIMENOrdering Facility: [facility] Address: [address] [place], [place] [address] Performed By: #### 2 4323-8, 16880-5 ####[facility] [id number] [address] [place] [address] [place] Calcium [Mass/Vol] 9.6 mg/dL Normal 8.5-10.2 [facility] Comment on above: Order Comment: Speci men Type: BLOOD SPECIMENOrdering Facility: [facility] Address: [address] [place] [address] Performed By: #### 2 4323-8, 00787-8 ####[facility] [id number] [address] [place] [address] [place] Chloride [Moles/Vol] 103 mmol/L Normal 98-107 [facility] Comment on above: Order Comment: Speci men Type: BLOOD SPECIMENOrdering Facility: [facility] Address: [address] [place] [address] Performed By: #### 2 4323-8, 70566-5 ####[facility] [id number] [address], [facility] [place] CO2 [Moles/Vol] 23 mmol/L Normal 22-30 [facility] Comment on above: Order Comment: Speci men Type: BLOOD SPECIMENOrdering Facility: [facility] Address: [address] [place] [address] Performed By: #### 2 4323-8, 46125-6 ####[facility] [id number] [place] [id number] [place] Creatinine [Mass/Vol] 0.72 mg/dL Normal 0.58-0.96 [facility] Comment on above: Order Comment: Speci men Type: BLOOD SPECIMENOrdering Facility: [facility] Address: [address] [place], [place] [address] Performed By: #### 2 4323-8, 76928-5 ####[facility] [id number] [address] [address] [place] eGFRcr SerPlBld CKD-EPI 2020 85 mL/min/1.73m??? Normal >=60 [facility] Comment on above: Order Comment: Marlene castañeda Type: BLOOD SPECIMENOrdering Facility: [facility] Address: [address] [place] [address] Result Comment: Hoda mated Glomerular Filtration Rate (eGFR) is calculated using the 2020 CKD-EPI creatinine equation. This equation utilizes serum creatinine, sex, and age as parameters. The creatinine assay has traceable calibration to isotope dilution-mass spectrometry. Refer to KDIGO guidelines for clinical interpretation. In patients with unstable renal function, e.g. those with acute kidney injury, the eGFR may not accurately reflect actual GFR. Performed By: #### 2 4323-8, 95822-2 ####[facility] [id number] [place] [address] [place] Glucose [Mass/Vol] 102 mg/dL High 74-99 [facility] Comment on above: Order Comment: Marlene castañeda Type: BLOOD SPECIMENOrdering Facility: [facility] Address: [address] [place] [address] Result Comment: The [place] Diabetes Association (ADA) provides guidance for cutoff values for fasting glucose and random glucose. The ADA defines fasting as no caloric intake for at least 8 hours. Fasting plasma glucose results between 100 to 125 mg/dL indicate increased risk for diabetes (prediabetes). Fasting plasma glucose results greater than or equal to 126 mg/dL meet the criteria for diagnosis of diabetes. In the absence of unequivocal hyperglycemia, results should be confirmed by repeat testing. In a patient with classic symptoms of hyperglycemia or hyperglycemic crisis, random plasma glucose results greater than or equal to 200 mg/dL meet the criteria for diagnosis of diabetes. Reference: Standards of Medical Care in Diabetes 2016, [place] [employer] Association. Diabetes Care. 2016.39(Suppl 1). Performed By: #### 2 4323-8, 96097-5 ####[facility] [id number] [place] [id number] [place] Potassium [Moles/Vol] 3.8 mmol/L Normal 3.7-5.1 [facility] Comment on above: Order Comment: Speci men Type: BLOOD SPECIMENOrdering Facility: [facility] Address: [address] [id number] Performed By: #### 2 4323-8, 56695-2 ####[facility] [id number] [address] [address] [place] Protein [Mass/Vol] 7.2 g/dL Normal 6.3-8.0 [facility] Comment on above: Order Comment: Speci men Type: BLOOD SPECIMENOrdering Facility: [facility] Address: [address] [place] [address] Performed By: #### 2 4323-8, 81914-5 ####[facility] [id number] [place] [id number] [place] Sodium [Moles/Vol] 140 mmol/L Normal 136-144 [facility] Comment on above: Order Comment: Speci men Type: BLOOD SPECIMENOrdering Facility: [facility] Address: [address] [place] [address] Performed By: #### 2 4323-8, 03494-4 ####[facility] [id number] [place] [address] [place] Urea nitrogen [Mass/Vol] 11 mg/dL Normal 7-21 [facility] Comment on above: Order Comment: Speci men Type: BLOOD SPECIMENOrdering Facility: [facility] Address: [address] [place], [place] [address] Performed By: #### 2 4323-8, 33370-3 ####[facility] [id number] [place] [id number] [place] Lipid 1996 panelon 5 Cholesterol [Mass/Vol] 155 mg/dL Normal <200 [facility] Comment on above: Order Comment: Speci men Type: BLOOD SPECIMENOrdering Facility: [facility] Address: [address] [place], [place] [address] Result Comment: <200 mg/dL, Desirable 200-239 mg/dL, Borderline high >239 mg/dL, High Performed By: #### 2 4323-8, 32898-8 ####[facility] [id number] [address] [address] [place] Cholesterol in HDL [Mass/Vol] 55 mg/dL Normal >39 [facility] Comment on above: Order Comment: Speci men Type: BLOOD SPECIMENOrdering Facility: [facility] Address: [address] [place] [address] Result Comment: 40-5 9 mg/dL, Acceptable >59 mg/dL, High: Negative risk factor for coronary heart disease <40 mg/dL, Low: Positive risk factor for coronary heart disease Performed By: #### 2 4323-8, ####[facility] [id number] [address] [place] Cholesterol in LDL [Mass/Vol] 82 mg/dL Normal <100 [facility] Comment on above: Order Comment: Marlene men Type: BLOOD SPECIMENOrdering Facility: [facility] Address: [address] [place] [address] Result Comment: <100 mg/dL, Optimal 100-129 mg/dL, Near optimal/above optimal 130-159 mg/dL, Borderline high 160-189 mg/dL, High >189 mg/dL, Very high Secondary prevention optimal LDL Cholesterol levels are recommended to be <70 mg/dL LDL cholesterol is calculated using the Castro-NIH equation. Performed By: #### 2 4323-8, ####[facility] [id number] [address] [address] [place] Cholesterol in LDL/Cholesterol in HDL [Mass ratio] 1.49 {ratio} Normal <2.54 [facility] Comment on above: Order Comment: Michellei men Type: BLOOD SPECIMENOrdering Facility: [facility] Address: [address] [place] [address] Result Comment: Refche baez: 1. National Cholesterol Education Program ATP III Guideline At-A-Glance Quick Desk Reference: National Heart, Lung, and Blood Baxter. National Institutes of Health. 2001: NIH Publication No. 01-3305. 2. An International Atherosclerosis Society position paper: global recommendations for the management of dyslipidemia: executive summary, Atherosclerosis. 2014: 232(2):410-413. Performed By: #### 2 4323-8, 86076-7 ####[facility] [id number] [address] [address] [place] Cholesterol in VLDL [Mass/Vol] 15 mg/dL Normal <30 [facility] Comment on above: Order Comment: Speci men Type: BLOOD SPECIMENOrdering Facility: [facility] Address: [address] [place] [address] Performed By: #### 2 4328, ####[facility] [id number] [place] [address] [place] Cholesterol non HDL [Mass/Vol] 100 mg/dL Normal <130 [facility] Comment on above: Order Comment: Marlene castañeda Type: BLOOD SPECIMENOrdering Facility: [facility] Address: [address] [place] [address] Result Comment: <130 mg/dL, Optimal 130-159 mg/dL, Near optimal/above optimal 160-189 mg/dL, Borderline high 190-219 mg/dL, High >219 mg/dL, Very high Secondary prevention optimal non HDL Cholesterol levels are recommended to be <100 mg/dL Performed By: #### 2 4328, 67950-7 ####[facility] [id number] [address] [address] [place] Cholesterol.total/Choles terol in HDL [Mass ratio] 2.82 {ratio} Normal <5.10 [facility] Comment on above: Order Comment: Speci men Type: BLOOD SPECIMENOrdering Facility: [facility] Address: [address] [place] [address] Performed By: #### 2 432-8, 24846-8 ####[facility] [id number] [place] [address] [place] FASTING TIME 12 hrs Normal [facility] Comment on above: Order Comment: Speci men Type: BLOOD SPECIMENOrdering Facility: [facility] Address: [address] [place] [address] Performed By: #### 2 4323-8, 10349-1 ####[facility] [id number] [place] [address] [place] Triglyceride [Mass/Vol] 95 mg/dL Normal <150 [facility] Comment on above: Order Comment: Speci men Type: BLOOD SPECIMENOrdering Facility: [facility] Address: [address] [place] [address] Result Comment: <150 mg/dL, Normal 150-199 mg/dL, Borderline high 200-499 mg/dL, High >499 mg/dL, Very high Performed By: #### 2 4323-8, 49079-3 ####[facility] [id number] [place] [address] [place] 12 Lead EKGon 01-24-2025 12 Lead EKG [facility] [address] [place] [address] 12 Lead EKG 01/24/25 1644 MR#: [id number] Acct: [id number] Name: WILLEM EVANS Rep #: [id number] : 1945 79 From: Everardo Gomez MD Attending Dr: Status: DEP ER Ordering Dr: Mir Galindo DO Date: 01/24/25 Location: ED Sex: F C Admitted: Test Reason : STROKE TEAM Blood Pressure : */* mmHG Vent. Rate : 63 BPM Atrial Rate : 63 BPM P-R Int : 164 ms QRS Dur : 84 ms QT Int : 462 ms P-R-T Axes : 50 16 101 degrees QTcB Int : 472 ms Normal sinus rhythm Nonspecific ST and T wave abnormality Abnormal ECG Confirmed by ITALIA RICH, EVERARDO ([id number]), technical writer and editor PREETHI RINALDI ([id number]) on 01/25/2025 10:52:33 AM Referred By: Confirmed By: EVERARDO GOMEZ MD 01/25/25 1052 Date Everardo Gomez MD CC: Dr. Mir Galindo, DO; Dr. Citlaly العراقي MD Signed Normal [facility] Absolute lymphocyte countOrd ered By: Mir Galindo on 01-24-2025 Lymphocytes Auto (Unsp spec) [#/Vol] 1.44 10*3/uL 0.83-4.51 [facility] Absolute neutrophil countOrd ered By: Mir Galindo on 01-24-2025 Neutrophils (Bld) [#/Vol] 4.3 10*3/uL 2.0-7.7 [facility] Activated partial thrombopla stin time (aPTT) in platelet poor plasma by coagulation aOrdered By: Mir Galindo on 01-24-2025 aPTT Coag (PPP) [Time] 29.8 s 24.1-36.2 [facility] Anion gap in Serum or Plasma Ordered By: Mir Galindo on 01-24-2025 Anion gap [Moles/Vol] 8 mmol/L 5-15 [facility] Automated lymphocyte count a s percentage of total leukocytesOrdered By: Mir Galindo on 01-24-2025 Lymphocytes/100 WBC Auto (Unsp spec) 21.6 % 19-41 [facility] BUN/creatinine ratioOrdered By: Mir Galindo on 01-24-2025 Urea nitrogen/Creatinine [Mass ratio] 18.6 mg/mg 10- [facility] Basic Metabolic Profile (BMP )on 01-24-2025 BUN/CRE 18.6 RATIO Normal - [facility] Comment on above: Order Comment: This specimen has been REJECTED due to Laboratory criteria:Quanity Not Sufficient.ASHLIE GUAMAN has been notified of need of recollection.01/24/25 1644 Promise Thorne Performed By: #### L 501.4021, L300.3900, L100.0100, L500.2500, L300.4310 #### [facility] [address] [place], [address] Calcium [Mass/Vol] 8.5 mg/dL Normal 7.6-11.0 [facility] Comment on above: Order Comment: This specimen has been REJECTED due to Laboratory criteria:Quanity Not Sufficient.ASHLIE GUAMAN has been notified of need of recollection.01/24/25 1644 Promise Lollo Performed By: #### L 501.4021, L300.3900, L100.0100, L500.2500, L300.4310 #### [facility] [address] [place], [address] Chloride [Moles/Vol] 100 mmol/L Normal 98-108 [facility] Comment on above: Order Comment: This specimen has been REJECTED due to Laboratory criteria:Quanity Not Sufficient.ASHLIE GUAMAN has been notified of need of recollection.01/24/25 1644 Promise Lollo Performed By: #### L 501.4021, L300.3900, L100.0100, L500.2500, L300.4310 #### [facility] [address] [place], [address] CO2 [Moles/Vol] 27.4 mmol/L Normal 21.0-32.0 [facility] Comment on above: Order Comment: This specimen has been REJECTED due to Laboratory criteria:Quanity Not Sufficient.ASHLIE GUAMAN has been notified of need of recollection.01/24/25 1644 Promise Lollo Performed By: #### L 501.4021, L300.3900, L100.0100, L500.2500, L300.4310 #### [facility] [address] [place], [address] Creatinine [Mass/Vol] 0.68 mg/dL Low 0.70-1.20 [facility] Comment on above: Order Comment: This specimen has been REJECTED due to Laboratory criteria:Quanity Not Sufficient.ASHLIE GUAMAN has been notified of need of recollection.01/24/25 1644 Promise Lollo Performed By: #### L 501.4021, L300.3900, L100.0100, L500.2500, L300.4310 #### [facility] [address] [place], [address] ECRCL 53.38 ml/min Normal 50-250 [facility] Comment on above: Order Comment: This specimen has been REJECTED due to Laboratory criteria:Quanity Not Sufficient.ASHLIE GUAMAN has been notified of need of recollection.01/24/25 1644 Promise Lollo Performed By: #### L 501.4021, L300.3900, L100.0100, L500.2500, L300.4310 #### [facility] [address] [place], [address] GAP 8 Normal 5-15 [facility] Comment on above: Order Comment: This specimen has been REJECTED due to Laboratory criteria:Quanity Not Sufficient.ASHLIE GUAMAN has been notified of need of recollection.01/24/254 Promise Lollo Performed By: #### L 501.4021, L300.3900, L100.0100, L500.2500, L300.4310 #### [facility] [address] [place], [address] GFR/1.73 sq M.predicted among non-blacks MDRD (S/P/Bld) [Vol rate/Area] 89 mL/min/{1.73_m2} Normal >60 [facility] Comment on above: Order Comment: This specimen has been REJECTED due to Laboratory criteria:Quanity Not Sufficient.ASHLIE GUAMAN has been notified of need of recollection.01/24/25 1644 Promise Lollo Result Comment: mL/m in/1.73m2 CKD-EPI Creatinine Equation (2020) Performed By: #### L 501.4021, L300.3900, L100.0100, L500.2500, L300.4310 #### [facility] [address] [place], [address] Glucose [Mass/Vol] 118 mg/dL High 70-99 [facility] Comment on above: Order Comment: This specimen has been REJECTED due to Laboratory criteria:Quanity Not Sufficient.ASHLIE GUAMAN has been notified of need of recollection.01/24/25 1644 Promise Lollo Performed By: #### L 501.4021, L300.3900, L100.0100, L500.2500, L300.4310 #### [facility] [address] [place], [address] Potassium [Moles/Vol] 3.8 mmol/L Normal 3.3-5.1 [facility] Comment on above: Order Comment: This specimen has been REJECTED due to Laboratory criteria:Quanity Not Sufficient.ASHLIE GUAMAN has been notified of need of recollection.01/24/25 1644 Promise Lollo Performed By: #### L 501.4021, L300.3900, L100.0100, L500.2500, L300.4310 #### [facility] [address] [place], [address] Sodium [Moles/Vol] 136 mmol/L Normal 133-145 [facility] [facility] Comment on above: Order Comment: This specimen has been REJECTED due to Laboratory criteria:Quanity Not Sufficient.ASHLIE GUAMAN has been notified of need of recollection.01/24/25 1644 Promise Lollo Performed By: #### L 501.4021, L300.3900, L100.0100, L500.2500, L300.4310 #### [facility] [address] [place], [address] Urea nitrogen [Mass/Vol] 13 mg/dL Normal 4-19 [facility] Comment on above: Order Comment: This specimen has been REJECTED due to Laboratory criteria:Quanity Not Sufficient.ASHLIE GUAMAN has been notified of need of recollection.01/24/25 1644 Promise Lollo Performed By: #### L 501.4021, L300.3900, L100.0100, L500.2500, L300.4310 #### [facility] [address] [place], [address] Basophil percentageOrdered B y: Mir Galindo on 01-24-2025 Basophils/100 WBC (Bld) 1.1 % High 0-1 [facility] CBC W/Diff, Automatedon 01-09 Absolute Lymph 1.44 X10 3/uL Normal 0.83-4.51 [facility] Comment on above: Performed By: #### L 501.4021, L300.3900, L100.0100, L500.2500, L300.4310 #### [facility] [address] [place], [address] Absolute Neut 4.3 X10 3/uL Normal 2.0-7.7 [facility] Comment on above: Performed By: #### L 501.4021, L300.3900, L100.0100, L500.2500, L300.4310 #### [facility] [address] [place], [address] Basophils/100 WBC (Bld) 1.1 % High 0-1 [facility] Comment on above: Performed By: #### L 501.4021, L300.3900, L100.0100, L500.2500, L300.4310 #### [facility] [address] [place], [address] Eosinophils/100 WBC (Bld) 3.6 % Normal 0-5 [facility] Comment on above: Performed By: #### L 501.4021, L300.3900, L100.0100, L500.2500, L300.4310 #### [facility] [address] [place], [address] Erythrocyte distribution width (RBC) [Ratio] 15.4 % High 11.6-14.6 [facility] Comment on above: Performed By: #### L 501.4021, L300.3900, L100.0100, L500.2500, L300.4310 #### [facility] [address] [place], [address] Hematocrit (Bld) [Volume fraction] 28.6 % Low 37-47 [facility] Comment on above: Performed By: #### L 501.4021, L300.3900, L100.0100, L500.2500, L300.4310 #### [facility] [address] [place], [address] Hemoglobin (Bld) [Mass/Vol] 9.2 g/dL Low 12.0-15.0 [facility] Comment on above: Performed By: #### L 501.4021, L300.3900, L100.0100, L500.2500, L300.4310 #### [facility] [address] [place], [address] IG% 0.300 Normal 0.0-0.9 [facility] Comment on above: Result Comment: IG% - Immature Granulocytes (promyelocytes, myelocytes and metamyelocytes) > 1% indicates that a LEFT SHIFT is Present. Performed By: #### L 501.4021, L300.3900, L100.0100, L500.2500, L300.4310 #### [facility] [address] [place], [address] Lymphocytes/100 WBC (Bld) 21.6 % Normal 19-41 [facility] Comment on above: Performed By: #### L 501.4021, L300.3900, L100.0100, L500.2500, L300.4310 #### [facility] [address] [place], [address] MCH (RBC) [Entitic mass] 29.4 pg Normal 27.0-32.0 [facility] Comment on above: Performed By: #### L 501.4021, L300.3900, L100.0100, L500.2500, L300.4310 #### [facility] [address] [place], [address] MCHC (RBC) [Mass/Vol] 32.2 g/dL Normal 32-36 [facility] Comment on above: Performed By: #### L 501.4021, L300.3900, L100.0100, L500.2500, L300.4310 #### [facility] [address] [place], [address] MCV (RBC) [Entitic vol] 91.4 fL Normal 81-99 [facility] Comment on above: Performed By: #### L 501.4021, L300.3900, L100.0100, L500.2500, L300.4310 #### [facility] [address] [place], [address] Monocytes/100 WBC (Bld) 8.6 % Normal 0-10 [facility] Comment on above: Performed By: #### L 501.4021, L300.3900, L100.0100, L500.2500, L300.4310 #### [facility] [address] [place], [address] Neutrophils/100 WBC (Bld) 64.8 % Normal 47-70 [facility] Comment on above: Performed By: #### L 501.4021, L300.3900, L100.0100, L500.2500, L300.4310 #### [facility] [address] [place], [address] Nucleated RBC (Bld) [#/Vol] 0 10*3/uL Normal 0-5 [facility] Comment on above: Performed By: #### L 501.4021, L300.3900, L100.0100, L500.2500, L300.4310 #### [facility] [address] [place], [address] Platelet mean volume (Bld) [Entitic vol] 9.8 fL Normal 6.2-12.0 [facility] Comment on above: Performed By: #### L 501.4021, L300.3900, L100.0100, L500.2500, L300.4310 #### [facility] [address] [place], [address] Platelets (Bld) [#/Vol] 405 10*3/uL Normal 150-450 [facility] Comment on above: Performed By: #### L 501.4021, L300.3900, L100.0100, L500.2500, L300.4310 #### [facility] [address] [place], [address] RBC (Bld) [#/Vol] 3.13 10*6/uL Low 4.2-5.4 [facility] Comment on above: Performed By: #### L 501.4021, L300.3900, L100.0100, L500.2500, L300.4310 #### [facility] [address] [place], [address] RDW SD 51.6 fl High 35.1-43.9 [facility] Comment on above: Performed By: #### L 501.4021, L300.3900, L100.0100, L500.2500, L300.4310 #### [facility] [address] [place], [address] WBC (Bld) [#/Vol] 6.7 10*3/uL Normal 4.4-11.0 [facility] Comment on above: Performed By: #### L 501.4021, L300.3900, L100.0100, L500.2500, L300.4310 #### [facility] [address] [place], [address] Carbon dioxide, total [Moles /volume] in Central venous bloodOrdered By: Mir Galindo on 01-24-2025 CO2 [Moles/Vol] 27.4 mmol/L 21.0-32.0 [facility] Chest 1 Viewon 01-24-2025 Chest 1 View [facility] Imaging Services [address] [place] [address] Chest 1 View MR#: [id number] Acct: [id number] Name: WILLEM EVANS Rep #: [id number] : 1945 F 79 From: Wm Jin PCP: Dr. Citlaly العراقي MD Status: [facility] ER Study: Chest 1 View Date of Exam: 01/24/25 Exam# [id number] Ordering Dr: Mir Galindo DO PROCEDURE: CHEST 1 VIEW 01/24/2025 REASON FOR EXAM: NEURO DEFICIT, ACUTE, STROKE SUSPECTED TECHNIQUE: Frontal view of the chest. COMPARISON: None FINDINGS: No focal consolidations. Mild pulmonary vascular congestion. No pleural effusion or pneumothorax. Heart is borderline enlarged in size. Calcified aortic arch. Small hiatal hernia. RAD/Chest 1 View IMPRESSION: No focal consolidations. Mild pulmonary vascular congestion. No pleural effusion or pneumothorax. Small hiatal hernia. Reading Location: [facility] CC: Dr. Mir Galindo DO; Dr. Citlaly العراقي MD Nut Tapper: Signed Normal [facility] Chloride assayOrdered By: Mark Galindo on 01-24-2025 Chloride [Moles/Vol] 100 mmol/L 98-108 [facility] Emergency Department Summary on 01-24-2025 Emergency Department Summary [facility] Medical Records Department [address] [place] [address] Emergency Department Summary 01/24/25 MR#: [id number] Acct: [id number] Name: WILLEM EVANS Rep #: [id number] : 1945 79 From: Mir Galindo DO PCP: Dr. Citlaly العراقي MD Status:DEP ER Location: ED HPI History of Present Illness Chief Complaint: Stroke Alert Informant: patient, family and EMS Onset/Context/Timing Onset: Today Context: Sudden Onset Quality and Location: Positive for Left Facial Droop, Left Arm Weakness and Left Leg Weakness Onset: Last known well was approximately 3 PM today. Worsened by: Nothing Relieved by: Nothing Associated Symptoms Associated Symptoms: Negative for Headache, Nausea, Vomiting or Chest Pain Narrative Narrative: Patient presents with left-sided weakness that began today. Family states last known well was approximately 3 PM today. EMS reports patient was having difficulty moving her left side. Patient is confused on the year. Patient states it is 2021. Patient denies any difficulty breathing or difficulty swallowing. Patient denies any chest pain or shortness of breath. Patient denies any nausea or vomiting. Patient denies any headaches. Patient had a prior stroke in December of this year and received thrombolytic therapy at that time. Patient is supposed to be on aspirin but has not been taking it. 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 Depression Inflammatory bowel disease Anxiety Home Medications ???Medication ???Instructions ???Recorded ???Last Taken ???Type fluoxetine 40 mg capsule 60 mg PO DAILY 10/17/21 Unknown Hi story multivitamin 1 tab PO DAILY 10/17/21 Unknown Hi story buspirone 10 mg tablet 10 mg PO TID 02/28/24 Unknown Hist ory melatonin 10 mg capsule 10 mg PO QHS PRN sleep 02/28/24 Un known History memantine 10 mg tablet 10 mg PO BID 02/28/24 Unknown Hist ory polyethylene glycol 3350 17 17 g PO DAILY 03/08/24 Unknown His tory gram/dose oral powder (ClearLax) sennosides 8.6 mg tablet 17.2 mg PO BID 03/08/24 Unknown Hi story (Evac-U-Gen (sennosides)) gabapentin 100 mg capsule 100 mg PO TID PRN PRN for pain 06/04 Unknown History losartan 25 mg tablet 25 mg PO DAILY 12/18/24 Unknown Hi story trazodone 50 mg tablet 50 mg PO QHS 12/18/24 Unknown Hist ory Allergy/AdvReac Type Severity Reaction Status Date / Time No Known Allergies Allergy Verified 12/18/24 19:34 Social History household members: spouse housing: house Smoking Status: Never smoker ROS ROS ED Constitutional Constitutional ED: Denies chills or fever(s) Eyes Eyes: Denies blurry vision or change in vision Cardiovascular Cardiovascular: Denies chest pain or palpitations Respiratory/Chest Respiratory/Chest: Denies cough or dyspnea Gastrointestinal Gastrointestinal: Denies nausea or vomiting Neurologic Neurologic: Reports weakness; Denies headache(s) EXAM Physical Exam Const Vital Signs: 01/24/25 16:02 01/24/25 16:15 01/24/25 16:15 Temperature 98.3 F Temperature Source Oral Pulse Rate 74 128 H Respiratory Rate 16 16 Blood Pressure 162/80 H 170/74 H Blood Pressure Mean 107 106 Pulse Ox 94 98 98 Oxygen Delivery Method Room Air Room Air Room Air 01/24/25 17:02 01/24/25 17:12 01/24/25 17:30 Temperature 98.6 F Temperature Source Pulse Rate 80 80 77 Respiratory Rate 16 16 18 Blood Pressure 165/89 H 165/89 H 160/80 H Blood Pressure Mean 114 114 106 Pulse Ox 96 96 98 Oxygen Delivery Method 01/24/25 18:00 01/24/25 19:00 01/24/25 19:27 Temperature 98.2 F Temperature Source Pulse Rate 77 71 72 Respiratory Rate 18 18 18 Blood Pressure 184/80 H 176/73 H 188/71 H Blood Pressure Mean 114 107 110 Pulse Ox 98 95 96 Oxygen Delivery Method Room Air Positive well nourished and well developed General Appearance ED: well developed and NAD HEENT Reports moist mucous membranes Neck supple and no JVD Resp normal respiratory effort and clear to auscultation bilaterally GI soft to palpation, non-tender and non-distended Neuro oriented x3, CN's II-XII intact bilaterally and no sensory deficits noted Jai Coma Scale: document GCS findings Spontaneous Obeys Commands Oriented 15 Sensorium / Orientation: alert Speech: speech normal Motor Exam: strength 5/5 throughout Psych mental status grossly normal MDM MDM MDM Narrative Medical decision making narrative: Prehospital stroke alert was called. Stroke alert order set was used. Stat CT scan of the brain will be obtained to assess for intracranial bleeding and stroke. CTA of (more content not included)... Normal [facility] Eosinophil percentageOrdered By: Mir Galindo on 01-24-2025 Eosinophils/100 WBC (Bld) 3.6 % 0-5 [facility] Erythrocyte distribution wid th ratioOrdered By: Mir Galindo on 01-24-2025 Erythrocyte distribution width (RBC) [Ratio] 15.4 % High 11.6-14.6 [facility] Erythrocyte distribution wid th standard deviationOrdered By: Mir Galindo on 01-24-2025 Erythrocyte distribution width (RBC) [Ratio] 51.6 fl High 35.1-43.9 [facility] Glomerular filtration rate ( GFR) estimation/1.73 sq m using serum, plasma, or whole bOrdered By: Mir Galindo on 01-24-2025 GFR/1.73 sq M.predicted among non-blacks MDRD (S/P/Bld) [Vol rate/Area] 89 mL/min/{1.73_m2} >60 [facility] Comment on above: mL/min/1.73m2 CKD-EP I Creatinine Equation (2020) Hematocrit Auto (Bld) [Volum e fraction]Ordered By: Mir Galindo on 01-24-2025 Hematocrit (Bld) [Volume fraction] 28.6 % Low 37-47 [facility] Hemoglobin measurementOrdere d By: Mir Galindo on 01-24-2025 Hemoglobin (Bld) [Mass/Vol] 9.2 g/dL Low 12.0-15.0 [facility] Immature granulocytes/100 WB C Auto (Bld)Ordered By: Mir Galindo on 01-24-2025 Immature granulocytes/100 WBC (Bld) 0.300 % 0.0-0.9 [facility] Comment on above: IG% - Immature Granu locytes (promyelocytes, myelocytes and metamyelocytes) > 1% indicates that a LEFT SHIFT is Present. International normalized rat io (INR) calculationOrdered By: Mir Galindo on 01-24-2025 INR Coag (Bld) [Relative time] 1.0 {INR} [facility] L499.0042on 01-24-2025 Trop T High Sen 16 ng/L High <=14 [facility] Comment on above: Performed By: #### L 501.4021, L300.3900, L100.0100, L500.2500, L300.4310 #### [facility] [address] [place], [address] L499.0043on 01-24-2025 Trop T High Sen Normal <=14 [facility] Comment on above: Result Comment: Canc elled via OM: Order cancelled - Patient discharged Performed By: #### L 499.0043 #### [facility] [address] [place], [address] L501.4021on 01-24-2025 Trop T High Sen 11 ng/L Normal <=14 [facility] Comment on above: Order Comment: This specimen has been REJECTED due to Laboratory criteria:Quanity Not Sufficient.ASHLIE GUAMAN has been notified of need of recollection.01/24/25 1644 Promise Lollo Performed By: #### L 501.4021, L300.3900, L100.0100, L500.2500, L300.4310 #### [facility] [address] [place], [address] MCV (mean corpuscular volume ) determinationOrdered By: Mir Galindo on 01-24-2025 MCV (RBC) [Entitic vol] 91.4 fL 81-99 [facility] Mean corpuscular hemoglobin (MCH) determinationOrdered By: Mir Galindo on 01-24-2025 MCH (RBC) [Entitic mass] 29.4 pg 27.0-32.0 [facility] Mean corpuscular hemoglobin concentration (MCHC) determinationOrdered By: Mir Galindo on 01-24-2025 MCHC (RBC) [Mass/Vol] 32.2 g/dL 32-36 [facility] Mean platelet volume determi nationOrdered By: Mir Galindo on 01-24-2025 Platelet mean volume (Bld) [Entitic vol] 9.8 fL 6.2-12.0 [facility] Monocyte percentageOrdered B y: Mir Galindo on 01-24-2025 Monocytes/100 WBC (Bld) 8.6 % 0-10 [facility] Neutrophil percentageOrdered By: Mir Galindo on 01-24-2025 Neutrophils/100 WBC (Bld) 64.8 % 47-70 [facility] Nucleated red blood cell per centageOrdered By: Mir Galindo on 01-24-2025 Nucleated RBC/100 WBC (Bld) [Ratio] 0 % 0-5 [facility] Partial Thromboplast Timeon 01-24-2025 aPTT Coag (Bld) [Time] 29.8 s Normal 24.1-36.2 [facility] Comment on above: Performed By: #### L 501.4021, L300.3900, L100.0100, L500.2500, L300.4310 #### [facility] [address] [place], [address] Platelet countOrdered By: Mark Galindo on 01-24-2025 Platelets (Bld) [#/Vol] 405 10*3/uL 150-450 [facility] Potassium measurement (mass/ volume)Ordered By: Mir Galindo on 01-24-2025 Potassium (Unsp spec) [Mass/Vol] 3.8 mmol/L 3.3-5.1 [facility] Prothrombin Time w/INRon INR Coag (PPP) [Relative time] 1.0 {INR} Normal [facility] Comment on above: Performed By: #### L 501.4021, L300.3900, L100.0100, L500.2500, L300.4310 #### [facility] [address] [place], [address] PT Coag (PPP) [Time] 13.1 s Normal 11.7-14.9 [facility] Comment on above: Performed By: #### L 501.4021, L300.3900, L100.0100, L500.2500, L300.4310 #### [facility] [address] [place], [address] INR Normal [facility] Comment on above: Result Comment: This specimen has been REJECTED due to Laboratory criteria: Quanity Not Sufficient. ASHLIE GUAMAN has been notified of need of recollection. 01/24/255 Promise Lollo Performed By: #### L 501.4021, L300.3900, L100.0100, L500.2500, L300.4310 #### [facility] [address] [place], [address] PROTIME Normal 11.7-14.9 [facility] Comment on above: Result Comment: This specimen has been REJECTED due to Laboratory criteria: Quanity Not Sufficient. ASHLIE GUAMAN has been notified of need of recollection. 01/24/25 1645 Promise Lollo Performed By: #### L 501.4021, L300.3900, L100.0100, L500.2500, L300.4310 #### [facility] [address] [place], [address] Prothrombin timeOrdered By: Mir Galindo on 01-24-2025 PT Coag (PPP) [Time] 13.1 s 11.7-14.9 [facility] RBC Auto (Bld) [#/Vol]Ordere d By: Mir Galindo on 01-24-2025 RBC (Bld) [#/Vol] 3.13 10*6/uL Low 4.2-5.4 [facility] STROKE Brain/Head without Co nton 01-24-2025 STROKE Brain/Head without Cont [facility] Imaging Services [address] [place] [address] STROKE Brain/Head without Cont MR#: [id number] Acct: [id number] Name: WILLEM EVANS Rep #: [id number] : 1945 F 79 From: Lauro Harman MD PCP: Dr. Citlaly العراقي MD Status: REG ER Study: STROKE Brain/Head without Cont Date of Exam: 0 01/24/25 Exam# [id number] Ordering Dr: Mir Galindo DO PROCEDURE: STROKE BRAIN/HEAD WITHOUT CONT 01/24/2025 REASON FOR EXAM: NEURO DEFICIT, ACUTE, STROKE SUSPECTED TECHNIQUE: STROKE BRAIN/HEAD WITHOUT CONT Coronal and Sagittal reconstruction series were provided. One or more dose reduction techniques were used (e.g., Automated exposure control, adjustment of the mA and/or kV according to patient size, use of iterative reconstruction technique. RADIATION DOSE SUMMARY: CTDlvol: 44.99 mGy DLP: 745.49 mGycm COMPARISON: CT head without contrast, 12/18/2024. FINDINGS: There is moderate diffuse cerebral atrophy with concomitant ventriculomegaly. There are chronic cortical infarctions in both basal ganglia and in the periventricular white matter of both frontal lobes. There is no evidence of acute intracranial hemorrhage or infarction. There are no abnormal intracranial masses or mass effects. The ventricular system and basilar cisterns are unremarkable. There is calcific vascular disease of the intracranial portion of both internal carotid arteries in the left vertebral artery. The skull base and calvarium are normal. There is right carlos eduardo bullosa with mild nasal septal deviation to the left. The paranasal sinuses and mastoid air cells are unremarkable. There are bilateral scleral lu. The intraorbital contents are otherwise unremarkable. The visualized extracranial soft tissues are normal. CT/STROKE Brain/Head without Cont IMPRESSION: 1. No evidence of acute intracranial pathology. 2. Cerebral atrophy. 3. Other findings as noted. Reading Location: [facility] CC: Dr. Mir Galindo DO; Dr. Citlaly العراقي MD Nut Tapper: Signed Normal [facility] STROKE CTA Head AND Neck W/C onon 01-24-2025 STROKE CTA Head AND Neck W/Con [facility] Imaging Services [address] [place] [address] STROKE CTA Head AND Neck W/Con MR#: [id number] Acct: [id number] Name: WILLEM EVANS Rep #: [id number] : 1945 F 79 From: Krzysztof Brower MD PCP: Dr. Citlaly العراقي MD Status: [facility] ER Study: STROKE CTA Head AND Neck W/Con Date of Exam: 0 01/24/25 Exam# [id number] Ordering Dr: Mir Galindo DO PROCEDURE: STROKE CTA HEAD AND NECK W/CON 01/24/2025 REASON FOR EXAM: NEURO DEFICIT, ACUTE, STROKE SUSPECTED TECHNIQUE: STROKE CTA HEAD AND NECK W/CON Multiplanar Sagittal and Coronal images were obtained. CONTRAST: Isovue 370 VOLUME: 75 mL One or more dose reduction techniques were used (e.g., Automated exposure control, adjustment of the mA and/or kV according to patient size, use of iterative reconstruction technique). RADIATION DOSE SUMMARY: CTDlvol: 16.61+ 15.59 mGy DLP: 514.38 mGycm COMPARISON: 12/18/2024 CTA. FINDINGS: Atherosclerosis of the aortic arch without significant stenosis. The common carotid arteries are patent without evidence of stenosis or injury. Atherosclerosis of the bilateral proximal internal carotid arteries without hemodynamically significant stenosis. The left cervical vertebral artery is slightly dominant when compared to the right. The bilateral cervical vertebral arteries are patent without evidence of stenosis or injury. Atherosclerosis of the carotid siphons without hemodynamically significant stenosis. The anterior cerebral, anterior communicating, middle cerebral, and posterior cerebral arteries are patent without evidence of stenosis or injury. The [id number] is intact. No significant aneurysm. The vertebrobasilar system is patent. Improved circulation of the M1 segment of the right MCA. The lung apices are clear. CT/STROKE CTA Head AND Neck W/Con IMPRESSION: No acute arterial abnormality of the head or neck. Reading Location: [place] [address] CC: Dr. Mir Galindo DO; Dr. Citlaly العراقي MD Nut Tapper: Signed Normal [facility] Serum creatinine measurement (mass/volume)Ordered By: Mir Galindo on 01-24-2025 Creatinine [Mass/Vol] 0.68 mg/dL Low 0.70-1.20 [facility] Serum glucose measurement (m ass/volume)Ordered By: Mir Galindo on 01-24-2025 Glucose [Mass/Vol] 118 mg/dL High 70-99 [facility] Serum or plasma calcium maycol urement (mass/volume)Ordered By: Mir Galindo on 01-24-2025 Calcium [Mass/Vol] 8.5 mg/dL 7.6-11.0 [facility] Serum or plasma urea nitroge n measurement (mass/volume)Ordered By: Mir Galindo on 01-24-2025 Urea nitrogen [Mass/Vol] 13 mg/dL 4-19 [facility] Sodium levelOrdered By: Mir Galindo on 01-24-2025 Sodium [Moles/Vol] 136 mmol/L 133-145 [facility] Troponin T.cardiac [Mass/vol ume] in Serum or Plasma by High sensitivity methodOrdered By: Mir Galindo on 01-24-2025 Troponin T.cardiac High sensitivity method [Mass/Vol] 16 ng/L High <14 [facility] Troponin T.cardiac High sensitivity method [Mass/Vol] 11 ng/L <14 [facility] Comment on above: Delta: 15 on White blood cell (WBC) count Ordered By: Mir Galindo on 01-24-2025 WBC (Bld) [#/Vol] 6.7 10*3/uL 4.4-11.0 [facility] 01-07-2025 CNPN Telephone (PODCCP) WILLEM EVANS ([id number]) 1945 F Date Time Provider Department 01/07/25 CITLALY العراقي PODCCP During your visit today, we recorded the following information about you: Ofelia Linda 01/07/2025 11:01 AM Signed Transitional Care Management (TCM) [facility] Provider Action / FYI: N/A SUMMARY: Outreach type: INITIAL OUTREACH Discharge Network Status: In-Network Discharge Source of Patient: [facility] TCM Discharge Report Patient discharged from [place] on 12/21/24. 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 Contact made with patient: No - 2nd unsuccessful attempt - end outreach and close encounter. Ofelia Linda January 07, 2025 11:01 AM Allergies As of Date: 01/07/2025 (No Known Allergies) Date Reviewed: 01/04/2025 Reviewed by: Ani Núñez MA - Fully Assessed Reason for Visit: Transition Of Care [4074] Prescriptions as of 01/07/2025 - losartan (COZAAR) 25 mg tablet Take 1 tablet by mouth once daily. - gabapentin (NEURONTIN) 100 mg capsule Take 1 capsule by mouth three times a day as needed for up to 90 days. - aspirin 81 mg chewable tablet 1 tablet by ORAL/FEEDING TUBE route once daily. - atorvastatin (LIPITOR) 40 mg tablet 1 tablet by ORAL/FEEDING TUBE route daily at bedtime. - primidone (MYSOLINE) 50 mg tablet 0.5 tablets by ORAL/FEEDING TUBE route daily at bedtime. - busPIRone (BUSPAR) 10 mg tablet Take 1 tablet by mouth three times a day. - memantine (NAMENDA) 10 mg tablet Take 1 tablet by mouth two times a day. - traZODone (DESYREL) 50 mg tablet Take 1 tablet by mouth daily at bedtime. - methocarbamol (ROBAXIN) 500 mg tablet Take 1 tablet by mouth three times a day as needed. - FLUoxetine (PROZAC) 40 mg capsule Take 1 capsule by mouth once daily. - FLUoxetine (PROZAC) 20 mg capsule Take 1 capsule by mouth once daily. Take along with 40 mg pill for a total of 60 mg daily - ondansetron (ZOFRAN) 4 mg tablet Take 4 mg by mouth every 8 hours as needed for nausea/vomiting. - pantoprazole DR (PROTONIX) 40 mg tablet Take 40 mg by mouth every 12 hours. - conjugated estrogens (PREMARIN) vaginal cream Use 1 g vaginally two times a week. - multivitamin (MULTIPLE VITAMINS) tablet Take by mouth. - loratadine (CLARITIN) 10 mg tablet Take by mouth. - acetaminophen (TYLENOL EXTRA STRENGTH) 500 mg tablet Take 2 tablets by mouth every 6 hours as needed for pain. - MELATONIN ORAL Take 6 mg by mouth daily at bedtime. - DAILY MULTIVITAMIN TAB Take one(1) tablet daily. Meds Comments as of 06/22/2019: 3 mg Melatonin at bedtime Imodium prn Problem List As Of Date 01/07/2025 Noted Resolved Major depressive disorder, recurrent, in full r*09/01/2006 OSTEOPOROSIS NOS [M81.0] 09/01/2006 GENERALIZED ANXIETY DIS [F41.1] 09/01/2006 JOINT PAIN-SHLDER [M25.519] 09/01/2006 IRRITABLE COLON [K58.9] ALLERGIC RHINITIS NOS [J30.9] Mixed hyperlipidemia [E78.2] 10/05/2007 OBESITY NOS [E66.9] 10/05/2007 CAROTID ART OCCL-NO INFARCT [I65.29] 11/29/2008 Acute midline low back pain without sciatica [M*11/07/2021 03/14/2022 Dementia without behavioral disturbance (HCC) [*10/31/2023 Acute ischemic cerebrovascular accident (CVA) i*12/18/2024 Essential tremor [G25.0] 12/20/2024 Hypokalemia [E87.6] 12/20/2024 Cerebral edema (HCC) [G93.6] 12/20/2024 Benign essential tremor [G25.0] 12/20/2024 History of dementia [Z86.59] 12/20/2024 Cerebral infarction (HCC) [I63.9] 12/21/2024 Encounter Status:Closed by OFELIA LINDA on 01/07/25 [facility] CNOVon 01-04-2025 CNOV Office Visit (FAMPWS ) WILLEM EVANS ([id number]) 1945 F Date Time Provider Department 01/04/25 2:20 PM CITLALY العراقي FAMPWS During your visit today, we recorded the following information about you: Pulse Respiration Blood pressure Weight 66/minute 16/minute 142/80 60.6 kg Citlaly العراقي MD 01/04/2025 3:01 PM Signed Transitional Care Management TCM Eligibility Documentation The following information was gathered during patient outreach 12/23/2024 Date of Outreach: Outreach Attempt 1: Contact Made Date of Discharge 12/21/2024 Provider Documentation Willem Evans is a 79 year old female here today for a follow up from recent hospitalization. I have reviewed the patient's hospital course including discharge summary, discharge medications , and follow up needs with the patient and any family members present at today's visit. HPI Here with daughter, Lindsey who works in Neuro ICU. Here with her daughter and , pt has been urinating and having normal BM fine. She is following with Neuro Rosemarie Spears for tremors and dementia. Was started on Mysoline 50 mg half pill at bedtime due to her tremors. states that the dementia is not improving, has sundowners. Is taking Namenda 10 mg BID. She is able to dress herself, just needs prompting when she is in the shower. Daughter comes over on her days off to help. helps her a lot. They were scheduled to follow up with a Neurosurgeon but cancelled as it was too far for her to travel, don't feel they are going to proceed with that. Suggested to take both Plavix and ASA but due to risk of bleeding with her falling they didn't want to add the Plavix. They opted to just take the ASA for 3 months. She is walking well, did use wheelchair to get back to the office today. Is walking about 100 ft. Left side was affected but she has improvement and full use. No chest pains,dizziness, or SOB. BP checked occ at home when they can get the wrist cuff to work. She is taking Losartan 25 mg daily. Hospital d/c this when she was discharged home but pt has been taking it. BP when she was admitted was up to 170 systolic. She has sundowners so at night it was going up to 180 systolic. She does take Trazodone 50 mg at bedtime. Continues to have back pain. Was on gabapentin 100 mg 1 pill TID prn but had not been giving it to her. She has been complaining of back pain again. felt it works well for her. HOSPITAL COURSE: Per ICU transfer note 12/20 79 F with advanced dementia, HTN (more so in last 6 months) admitted with acute L weakness to [place] ED. iNIHSS 12 for which she received IV TNK, CTH neg, CTA w/ RM1 occlusion, transferred to [facility] for further management and potential EVT. Symptomatically improved after arrival without need for thrombectomy. Patient remains confused (baseline AOX1), but able to move L side this morning. MRI + RMCA stroke. Pt has improved during hospital stay and now planning home vs home health. Daughter is nurse in neurology. Recommendation is DAPT but family prefers monotherapy. Echo and dvt study obtained benign. Plan for zio patch x 30 days. Follow up pcp 1 week and neuro as outpatient. Started on primidone for essential tremor- will continue Visit notes: This is a 79yo f, pmh of dementia and HTN, brought in by EMS to [place] ED for LFD and left sided weakness. Per report, patient's LKW was approximately 1730, prior to arriving to ED. iNIHSS 12 LFD, left sided weakness, left neglect, and slurred speech. Telestroke was consulted and recommend TNK. TNK was given at 2006. Symptoms improved to NIHSS 1 for mild left facial droop. She was briefly started on cardene infusion for SBP 190s. NIL at [facility] was consulted and recommends transferring patient to NSICU for closer neurological monitoring and possible emergent mechanical thrombectomy ASSESSMENT 79 year old female w/ PMHx significant for HTN and dementia who presented 12/18 with concern for left-sided weakness and slurred speech. TNK given at 2006. Post-TNK improved to NIH of 1, therefore thrombectomy was deferred. MRA completed yesterday noted persistent R M1 occlusion vs high-grade stenosis. No indication for neuroendovascular intervention at this time given low NIH score. Recommend continued close neuro monitoring for any exam worsening. Persistent R M1 occlusion versus high-grade stenosis noted on MRA, as well as stenoses of the bilateral psychiatric arnp, is suggestive of ICAD. Recommend DAPT for 3 months, however patient's daughter is hesitant due to somewhat frequent falls putting patient at higher risk of bleeding, may prefer single agent antiplatelet. Discussed reasoning for our recommendation with daughter who verbalized understanding. RECOMMENDATIONS - No neuroendovascular intervention indicated given low NIH - Recommend DAPT with Aspirin 81mg (more content not included)... [facility] Aaron 12-27-2024 NAEL Telephone (PODCCP) EVANSWILLEM ([id number]) 1945 F Date Time Provider Department 12/27/24 CITLALY العراقي During your visit today, we recorded the following information about you: Charo Price 12/27/2024 11:32 AM Signed Transitional Care Management (TCM) [facility] Monitoring [facility] Provider Action / FYI: N/a SUMMARY: Outreach type: INITIAL OUTREACH Discharge Network Status: In-Network Discharge Source of Patient: [facility] TCM Discharge Report Patient discharged from [place] on 12/21/2024. 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 Contact made with patient: No, for Follow-up - end outreach and close encounter. Charo Price December 27, 2024 11:32 AM Allergies As of Date: 12/27/2024 (No Known Allergies) Date Reviewed: 12/21/2024 Reviewed by: Jaun Estrada RN - Fully Assessed Reason for Visit: Transition Of Care [4074] Prescriptions as of 12/27/2024 - aspirin 81 mg chewable tablet 1 tablet by ORAL/FEEDING TUBE route once daily. - atorvastatin (LIPITOR) 40 mg tablet 1 tablet by ORAL/FEEDING TUBE route daily at bedtime. - primidone (MYSOLINE) 50 mg tablet 0.5 tablets by ORAL/FEEDING TUBE route daily at bedtime. - busPIRone (BUSPAR) 10 mg tablet Take 1 tablet by mouth three times a day. - memantine (NAMENDA) 10 mg tablet Take 1 tablet by mouth two times a day. - traZODone (DESYREL) 50 mg tablet Take 1 tablet by mouth daily at bedtime. - methocarbamol (ROBAXIN) 500 mg tablet Take 1 tablet by mouth three times a day as needed. - gabapentin (NEURONTIN) 100 mg capsule Take 1 capsule by mouth three times a day as needed for up to 90 days. - FLUoxetine (PROZAC) 40 mg capsule Take 1 capsule by mouth once daily. - FLUoxetine (PROZAC) 20 mg capsule Take 1 capsule by mouth once daily. Take along with 40 mg pill for a total of 60 mg daily - ondansetron (ZOFRAN) 4 mg tablet Take 4 mg by mouth every 8 hours as needed for nausea/vomiting. - pantoprazole DR (PROTONIX) 40 mg tablet Take 40 mg by mouth every 12 hours. - conjugated estrogens (PREMARIN) vaginal cream Use 1 g vaginally two times a week. - multivitamin (MULTIPLE VITAMINS) tablet Take by mouth. - loratadine (CLARITIN) 10 mg tablet Take by mouth. - acetaminophen (TYLENOL EXTRA STRENGTH) 500 mg tablet Take 2 tablets by mouth every 6 hours as needed for pain. - MELATONIN ORAL Take 6 mg by mouth daily at bedtime. - DAILY MULTIVITAMIN TAB Take one(1) tablet daily. Meds Comments as of 06/22/2019: 3 mg Melatonin at bedtime Imodium prn Problem List As Of Date 12/27/2024 Noted Resolved Major depressive disorder, recurrent, in full r*09/01/2006 OSTEOPOROSIS NOS [M81.0] 09/01/2006 GENERALIZED ANXIETY DIS [F41.1] 09/01/2006 JOINT PAIN-SHLDER [M25.519] 09/01/2006 IRRITABLE COLON [K58.9] ALLERGIC RHINITIS NOS [J30.9] Mixed hyperlipidemia [E78.2] 10/05/2007 OBESITY NOS [E66.9] 10/05/2007 CAROTID ART OCCL-NO INFARCT [I65.29] 11/29/2008 Acute midline low back pain without sciatica [M*11/07/2021 03/14/2022 Dementia without behavioral disturbance (HCC) [*10/31/2023 Acute ischemic cerebrovascular accident (CVA) i*12/18/2024 Essential tremor [G25.0] 12/20/2024 Hypokalemia [E87.6] 12/20/2024 Cerebral edema (HCC) [G93.6] 12/20/2024 Benign essential tremor [G25.0] 12/20/2024 History of dementia [Z86.59] 12/20/2024 Cerebral infarction (HCC) [I63.9] 12/21/2024 Encounter Status:Closed by CHARO PRICE on 12/27/24 [facility] CNDSon 12-21-2024 CNDS HNO ID: [id number] Author: SAJI RIVERA DO Service: Hospital Medicine Author Type: Physician Type: Discharge Summary Filed: 12/21/2024 12:28 Note Text: DISCHARGE SUMMARY PATIENT NAME: Willem Evans ADMISSION DATE: 12/18/2024 DISCHARGE DATE: 12/21/2024 ATTENDING PHYSICIAN: Saji Rivera DO Code Status: DNR-CCA, DNI Highest Readmission Risk Score: 9 The 30 day readmissions risk score is derived from an internally validated risk model which evaluates patient level characteristics, utilization history, medication orders and lab results up until the day of discharge. Patients with a score of 39 or above are considered highest risk for readmission. Specific patient level drivers will be listed at the bottom of the summary. CONSULTING TEAMS DURING HOSPITALIZATION: Hospital Medicine: [facility] Neurology: Dr Colindres Treatment Team: Attending Provider: Saji Rivera DO Primary Service: DEIDRE PICKETT REASON FOR HOSPITALIZATION: stroke FINAL DIAGNOSIS: R MCA Stroke Active Hospital Problems Diagnosis POA Acute ischemic stroke (HCC) Yes Essential tremor Yes Hypokalemia Yes Cerebral edema (HCC) Yes Benign essential tremor Yes History of dementia Yes Mixed hyperlipidemia Yes Resolved Hospital Problems No resolved problems to display. OPERATIONS DURING HOSPITALIZATION: None PROCEDURES DURING HOSPITALIZATION: MRI HOSPITAL COURSE: Per ICU transfer note 12/20 79 F with advanced dementia, HTN (more so in last 6 months) admitted with acute L weakness to [place] ED. iNIHSS 12 for which she received IV TNK, CTH neg, CTA w/ RM1 occlusion, transferred to [facility] for further management and potential EVT. Symptomatically improved after arrival without need for thrombectomy. Patient remains confused (baseline AOX1), but able to move L side this morning. MRI + RMCA stroke. Pt has improved during hospital stay and now planning home vs home health. Daughter is nurse in neurology. Recommendation is DAPT but family prefers monotherapy. Echo and dvt study obtained benign. Plan for zio patch x 30 days. Follow up pcp 1 week and neuro as outpatient. Started on primidone for essential tremor- will continue This is a 79yo f, pmh of dementia and HTN, brought in by EMS to [place] ED for LFD and left sided weakness. Per report, patient's LKW was approximately 1730, prior to arriving to ED. iNIHSS 12 LFD, left sided weakness, left neglect, and slurred speech. Telestroke was consulted and recommend TNK. TNK was given at 2006. Symptoms improved to NIHSS 1 for mild left facial droop. She was briefly started on cardene infusion for SBP 190s. NIL at [facility] was consulted and recommends transferring patient to NSICU for closer neurological monitoring and possible emergent mechanical thrombectomy. Neurology Essential tremor- (present on admission) Primidone 25mg HS started - Monitor for drowsiness Acute ischemic stroke (HCC)- (present on admission) P/W LFD, left sided weakness and drift, neglect and slurred speech. CTH showed no acute process. CTA noted R M1 occlusion. TNK given at 2006 on 12/18 MRI/MRA Brain, Neck (12/19) - Patchy areas of restricted diffusion in the right MCA territory consistent with acute infarct. - High-grade stenosis or occlusion of the proximal right M1 segment, with attenuated flow in the distal right M1 and M2 branches. This appears similar to the CTA performed 12/18/2024. - Probable proximal right P2 stenosis and mild to moderate left P2 narrowing. - No evidence of carotid or vertebral artery stenosis. Plan: - Q4h neuros - tele -stroke care path place -stroke education -SBP<180 -PRN Labetalol - ASA 81mg monotherapy Per request of family, no DAPT d/t falls -Echo with bubble study -24hr Post TNK CTH - stable -PT/OT/GEOLOGICAL DRAFTER -DVT ppx: SCDs, SQ Lovenox -Lipitor 40mg -Senna for bowel regimen Cardiovascular Mixed hyperlipidemia- (present on admission) LDL 64, goal <70 Lipitor 40mg HS Medication and Non-Pharmacologic VTE Prophylaxis/Anticoagu lants Anticoagulant AND Antiplatelet Medications (From admission, onward) Start Dose Route Frequency Last Action Ordered Stop 12/20/24 1200 enoxaparin 40 mg injection (LOVENOX) (enoxaparin injection (LOVENOX)) 40 mg SUBCUTANEOUS EVERY 24 HOURS Ordered 12/20/24 1046 -- 12/20/24 0900 aspirin 81 mg chewable tab(s) 81 mg PO/FT DAILY Given, 12/20 0857 12/19/24 2240 -- 12/19/24 0600 activity - mobilize patient (nh,ri) VTE Prophylaxis: VTE prophylaxis appropriate Plan of care discussed with: Provider, RN, Patient SIGNATURE: Rima Barragan APRN.KARLEE PATIENT NAME: Willem Evans DATE: December 20, 2024 TIME: 10:52 AM 1005 Part of my note may have been copied from previous documentation. It has been reviewed and is accurate. ASSESSMENT 79 year old female w/ PMHx significant for HTN and dementia who presented 12/18 with concern for left-sided weakness and slurred speech. TNK given at 20 (more content not included)... [facility] CONSULT PROGon 12-21-2024 CONSULT PROG HNO ID: [id number] Author: JOAQUIM MARTINEZ APRN.KARLEE Service: Neurology General Author Type: Nurse Practitioner Type: Consult Progress Note Filed: 12/21/2024 12:34 Note Text: NEURO STROKE CONSULT PROGRESS NOTE SERVICE DATE: 12/21/2024 SERVICE TIME: 909 Subjective INTERVAL HISTORY: Willem is doing well and is accompanied by her family. Updated family on plan of care and imaging results, all questions answered to their satisfaction. MEDICATIONS Current Facility-Administered Medications Medication Dose Route Frequency traMADol 50 mg tab(s) (ULTRAM) 50 mg ORAL QID PRN busPIRone 10 mg tab(s) (BUSPAR) 10 mg ORAL/FEEDING TUBE TID memantine 10 mg tab(s) (NAMENDA) 10 mg ORAL/FEEDING TUBE BID methocarbamol 500 mg tab(s) (ROBAXIN) 500 mg ORAL/FEEDING TUBE TID PRN NaCl 0.9% iv flush bag 20 mL INTRAVENOUS PRN atorvastatin 40 mg tab(s) (LIPITOR) 40 mg ORAL/FEEDING TUBE AT BEDTIME acetaminophen 650 mg tab(s) (TYLENOL) 650 mg ORAL/FEEDING TUBE q 4 H PRN senna-docusate 8.6-50 mg 1 tablet (SENNA-S) 1 tablet ORAL/FEEDING TUBE BID ondansetron (PF) 4 mg injection (ZOFRAN) 4 mg INTRAVENOUS q 6 H PRN sodium chloride 0.9 % (flush) 2-10 mL (BD POSIFLUSH) 2-10 mL INTRAVENOUS DIRECTED PRN And perflutren lipid microspheres 1.1 mg/mL 1.3 mL injection (DEFINITY) 1.3 mL INTRAVENOUS DIRECTED PRN traZODone 50 mg tab(s) (DESYREL) 50 mg ORAL/FEEDING TUBE AT BEDTIME gabapentin 100 mg cap(s) (NEURONTIN) 100 mg ORAL/FEEDING TUBE TID aspirin 81 mg chewable tab(s) 81 mg ORAL/FEEDING TUBE DAILY FLUoxetine 60 mg cap(s) (PROzac) 60 mg ORAL/FEEDING TUBE DAILY primidone 25 mg tab(s) (MYSOLINE) 25 mg ORAL/FEEDING TUBE AT BEDTIME enoxaparin 40 mg injection (LOVENOX) 40 mg SUBCUTANEOUS q 24 HR Objective PHYSICAL EXAM Vital Signs: BP 128/61 Pulse 77 Temp 37.2 ?C (99 ?F) (Oral) Resp 16 Wt 66.2 kg (145 lb 15.1 oz) SpO2 95% NEUROLOGICAL: AAOx2 (baseline disoriented to time per family) Face symmetric Gaze midline with EOMI Visual ho seemingly intact BUE 4/5 BLE 4/5 Intact sensation to light touch LOC: 0 - alert and responsive 0 LOC Questions: 1 - one correct 1 LOC Commands: 0 - both correct 0 Best Gaze: 0 - normal gaze 0 Visual Ho: 0 - no visual loss 0 Facial Palsy: 0 - normal 0 Motor Left Arm: 0 - no drift 0 Motor Right Arm: 0 - no drift 0 Motor Left Le - no drift 0 Motor Right Le - no drift 0 Limb Ataxia: 0 - no ataxia (or aphasic, hemiplegic) 0 Sensory: 0 - normal 0 Best Language: 0 - normal 0 Dysarthria: 0 - normal 0 Extinction and Inattention: 0 - normal, none detected (or visual loss alone) 0 Daily NIHSS Score: 1 (12/21/24 1227 : Joaquim Martinez APRN.ANALYST COMP[employer]ITIVE INTELLIGENCE) 1 DATA: Diagnostic tests reviewed for today's visit: Lipids, HbA1c, Recent Labs 12/19/24 0511 CHOL 141 HDL 60 LDL 64 TG 88 HBA1C 5.5 Most recent labs and imaging results. Most recent labs Most recent imaging MEDICAL EVENTS: No medical events have been recorded. STROKE 9 CARE AND PREVENTION CHECKLIST 1. Is the patient currently on an ANTITHROMBOTIC medication (Antiplatelet or Anticoagulant): Aspirin 2. Does the patient have known AFIB/FLUTTER: No 3. Is the patient on a STATIN: Atorvastatin 40 mg 4. Is the patient on VTE prophylaxis: Mechanical prophylaxis, Pharmacological prophylaxis Pharmacological intervention type: Heparin SQ Mechanical intervention type: Intermittent compression stocking(s) 5. GLYCEMIC Control Medications: BG well controlled 6. Stroke BP Goals: Post-IV tPA <180/105 Stroke BP Control: BP well controlled 7. Stroke IVF/Nutrition: Diet 8. TEMPERATURE Control: Normothermic 9. Does the patient need THERAPY: Yes Therapy Service Involvement: PT, OT, ST Stroke Care and Prevention (personally reviewed by Joaquim Martinez APRN.ANALYST COMP[employer]IVE INTELLIGENCE): Daily Rounding Date: 12/21/24 Daily Rounding Time: 1228 PROBLEM LIST: Principal Problem: Acute ischemic stroke (HCC) (POA: Yes) Active Problems: Mixed hyperlipidemia (POA: Yes) Essential tremor (POA: Yes) Hypokalemia (POA: Yes) Cerebral edema (HCC) (POA: Yes) Benign essential tremor (POA: Yes) History of dementia (POA: Yes) Resolved Problems: * No resolved hospital problems. * Impression/Recommenda tions IMPRESSION Willem Evans is a 79 F with advanced dementia, HTN (more so in last 6 months) admitted with acute L weakness to [place] ED. iNIHSS 12 for which she received IV TNK, CTH neg, CTA w/ RM1 occlusion, transferred to [facility] for further management and potential EVT. Symptomatically improved after arrival without need for thrombectomy. Patient remains confused (baseline AOX1), but able to move L side this morning. CT Brain 12/19: Expected evolution of areas of infarct at the right MCA territory. No hemorrhagic conversion. MRI Brain 12/19: Patchy areas of restricted diffusion in the right MCA territory consistent with acute infarct. MRA Brain/ Neck 12/19: High-grade stenosis or occlusion of t (more content not included)... [facility] NURSING PROGon 12-21-2024 NURSING PROG HNO ID: [id number] Author: ZOE COLLAZO RN Service: Nursing Author Type: Registered Nurse Type: Nursing Progress Note Filed: 12/21/2024 05:30 Note Text: Attempted to draw labs from line, no blood return from either line, per family since previous lab values were stable they did not want pt to be stuck for lab draw [facility] THERAPY NTon 12-21-2024 THERAPY NT HNO ID: [id number] Author: ELLIOT PENNY, PT Service: Physical Therapy Author Type: Physical Therapist Type: Therapy (PT/OT/Speech/Resp) Filed: 12/21/2024 16:27 Note Text: Physical Therapy Evaluation Summary SERVICE DATE: 12/21/2024 SERVICE TIME: 919 to 944 ROOM: [id number] PT 6 Clicks Score: 18 DISCHARGE RECOMMENDATIONS Home PT Recommended Discharge Disposition Comments: Patient to home due to the patient's current function, support at home, and has needed equipment. May do better in familiar home environment with familiar caregivers given hx dementia. Anticipated Discharge Needs: Physical Assist at Home Physical Assist at Home for: Ambulation, Cleaning, Laundry, Meals, Shopping, Transportation, Medication Management ASSESSMENT Response to Therapy Interventions: Requires Additional Time to Complete Activities, Multiple Ongoing Medical Issues Patient presented slightly below functional baseline. Patient was able to complete sit to stand, stand to sit, and mobility training with [place]. Patient tolerated PT session; however, needed a good amount of cueing due to patient hearing and cognitive impairments. Patient requires ongoing skilled PT to address functional deficits and to improve to baseline. PRECAUTIONS Fall Risk CURRENT HOSPITAL COURSE Patient presented to the emergency room in [place] for stroke-like symptoms. Patient was flighted and then driven to . Patient presented with left facial droop, left sided weakness, left sided sensory deficits, and left neglect. At , the patient was given TNK and this helped improved symptoms. Patient had negative DVT imaging bilaterally and imaging showed right MCA area infarct. Relevant Past Medical History: OA, HTN, Dementia, and Anxiety HOME LIVING Patient Lives With: Spouse Assistance Available: 24-Hour Entry To Home: No Stairs Number Of Stairs To Bed/Bath: 0 Stairs to Bed/Bath with: No Rail Tub/Shower Type: has to step into Laundry: Patient does not complete. Equipment Owned: Cane, Grab Bars- Shower, Rollator, Walker- Wheeled PRIOR FUNCTIONAL LEVEL Required Assistance Assistance Required With: Ambulation, Cleaning, Laundry, Meals, Shopping, Transportation Patient was independent with self-care tasks but needed assistance for IADLs. SUBJECTIVE Patient reports feeling tired but ready to-do exercise. Patient states she is comfortable in the chair. THERAPY DIAGNOSIS Reduced mobility-other, Muscle Weakness (generalized) TREATMENT INTERVENTIONS Evaluation, Gait Training (92632) $ Evaluation-Moderate (19044) Billed Units: 1 unit Gait Training (08034) Treatment Minutes: 9 $ Gait Training (93161) Billed Units: 1 unit Gait Training: Patient was educated on the importance of safety during gait training, and was cued to stay in the walker, pick-up feet, and increase step length during gait. Timed Code Treatment (minutes): 9 Skilled Treatment Time (minutes): 25 TRAINING AND EDUCATION PROVIDED Role of Physical Therapy, Gait Pattern, Reduction of Deviations, Falls Prevention, Discharge Planning, Assistive Device Use THERAPEUTIC SKILLS USED Cuing Tactile, Cuing Verbal, Cues for Sequencing/Proper Technique for Activity, Movement Facilitation, Physical Assist FUNCTIONAL STATUS Bed Mobility Transfers Sit To Stand: Minimal Assistance Stand To Sit: Minimal Assistance Bed to Chair Gait Minimal Assistance Patient needed cued to stay in the walker for saftey during mobility, cued to increase step length, and needed cued to pick feet up off the ground. Gait Device: Wheeled Walker General Deviations/Observatio ns: Antalgic gait, Wendy decreased, Flexed trunk posture, Step length decreased Gait Distance (feet): 40x2 and 100x2 Stairs RANGE OF MOTION ROM Limitation Comments ROM Limitation Comments: Decreased left knee extension AROM to 75% of the right. STRENGTH Right Hip Flexion Strength: 4-/5 Right Knee Flexion Strength: 4-/5 Right Knee Extension Strength: 4-/5 Right Ankle Dorsiflexion Strength: 4/5 Left Hip Flexion Strength: 3+/5 Left Knee Flexion Strength: 3+/5 Left Knee Extension Strength: 3+/5 Left Ankle Dorsiflexion Strength: 4-/5 BALANCE Static Sitting Balance: Good Dynamic Sitting Balance: Fair Static Standing Balance: Fair Dynamic Standing Balance: Fair GOALS Transfer Sit to/from Stand with: Stand By Assistance Ambulate with: Contact Guard Assistance Distance: 100 ft Device: Wheeled Walker ROM: Patient will improve left knee extension ROM to 90% of right knee from 75%. Rehab Potential: Fair Fair Rehab Potential Due To: Multiple co- morbidities, Learning impairments/ poor understanding of deficits, Advanced age, Memory deficits PLAN PT Frequency: 3 Times Per Week (1-3) Treatment Interventions: Education, Self Care / Home Management, Joint Mobility, Strengthening, Functional Mobility Training, Balance Training SIGNATURE: Brian Sommers, SPT PATIENT (more content not included)... Normal [facility] Basic metabolic 2000 panelon 12-20-2024 Anion gap [Moles/Vol] 12 mmol/L Normal 8-15 [facility] Comment on above: Order Comment: Speci men Type: BLOOD SPECIMEN Ordering Facility: [facility] Address: [address] [place], [place] [address] Performed By: #### 2 4321-2, 2776-, #### [facility] CLIA [id number] 1 [place] [address] [place] Calcium [Mass/Vol] 9.1 mg/dL Normal 8.5-10.2 [facility] Comment on above: Order Comment: Speci men Type: BLOOD SPECIMEN Ordering Facility: [facility] Address: [address] [place] [address] Performed By: #### 2 4321-2, 2776-08, #### [facility] CLIA [id number] 1 [place] [address] [place] Chloride [Moles/Vol] 106 mmol/L Normal 98-107 [facility] Comment on above: Order Comment: Speci men Type: BLOOD SPECIMEN Ordering Facility: [facility] Address: [address] [place] [address] Performed By: #### 2 4321-2, 2776-08, #### [facility] CLIA [id number] 1 [place] [address] [place] CO2 [Moles/Vol] 23 mmol/L Normal 22-30 [facility] Comment on above: Order Comment: Speci men Type: BLOOD SPECIMEN Ordering Facility: [facility] Address: [address] [place] [address] Performed By: #### 2 4321-2, 2776-08, #### [facility] CLIA [id number] 1 [place] [address] [place] Creatinine [Mass/Vol] 0.54 mg/dL Low 0.58-0.96 [facility] Comment on above: Order Comment: Speci men Type: BLOOD SPECIMEN Ordering Facility: [facility] Address: [address] [place] [address] Performed By: #### 2 4321-2, 2776-08, #### [facility] CLIA [id number] [address] [place] Creatinine and Glomerular filtration rate.predicted panel (S/P/Bld) 94 mL/min/1.73m??? Normal >=60 [facility] Comment on above: Order Comment: Marlene castañeda Type: BLOOD SPECIMEN Ordering Facility: [facility] Address: [address] [place] [address] Result Comment: Hoda mated Glomerular Filtration Rate (eGFR) is calculated using the 2020 CKD-EPI creatinine equation. This equation utilizes serum creatinine, sex, and age as parameters. The creatinine assay has traceable calibration to isotope dilution-mass spectrometry. Refer to KDIGO guidelines for clinical interpretation. In patients with unstable renal function, e.g. those with acute kidney injury, the eGFR may not accurately reflect actual GFR. Performed By: #### 2 4321-2, 2777-, #### [facility] CLIA [id number] 1 [place] [address] [place] Glucose [Mass/Vol] 95 mg/dL Normal 74-99 [facility] Comment on above: Order Comment: Marlene castañeda Type: BLOOD SPECIMEN Ordering Facility: [facility] Address: [address] [place] [address] Result Comment: The [place] [employer] (ADA) provides guidance for cutoff values for fasting glucose and random glucose. The ADA defines fasting as no caloric intake for at least 8 hours. Fasting plasma glucose results between 100 to 125 mg/dL indicate increased risk for diabetes (prediabetes). Fasting plasma glucose results greater than or equal to 126 mg/dL meet the criteria for diagnosis of diabetes. In the absence of unequivocal hyperglycemia, results should be confirmed by repeat testing. In a patient with classic symptoms of hyperglycemia or hyperglycemic crisis, random plasma glucose results greater than or equal to 200 mg/dL meet the criteria for diagnosis of diabetes. Reference: Standards of Medical Care in Diabetes 2016, [place] [employer] Association. Diabetes Care. 2016.39(Suppl 1). Performed By: #### 2 4321-2, 2777-, #### [facility] CLIA [id number] 1 [place] [address] [place] Potassium [Moles/Vol] 3.9 mmol/L Normal 3.7-5.1 [facility] Comment on above: Order Comment: Speci men Type: BLOOD SPECIMEN Ordering Facility: [facility] Address: [address] [place] [address] Performed By: #### 2 4321-2, 2776-08, #### [facility] CLIA [id number] [address] STATES OF [facility] Sodium [Moles/Vol] 141 mmol/L Normal 136-144 [facility] Comment on above: Order Comment: Speci men Type: BLOOD SPECIMEN Ordering Facility: [facility] Address: [address] [place] [address] Performed By: #### 2 4321-2, 2776-08, #### [facility] CLIA [id number] [address] [place] Urea nitrogen [Mass/Vol] 8 mg/dL Normal 7-21 [facility] Comment on above: Order Comment: Speci men Type: BLOOD SPECIMEN Ordering Facility: [facility] Address: [address] [place] [address] Performed By: #### 2 4321-2, 2776-08, #### [facility] CLIA [id number] [address] [place] CBC panel Auto (Bld)on 12-20 Erythrocyte distribution width (RBC) [Ratio] 15.2 % High 11.5-15.0 [facility] Comment on above: Order Comment: Speci men Type: BLOOD SPECIMEN Ordering Facility: [facility] Address: [address] [place] [address] Performed By: #### 2 4321-2, 2776-08, #### [facility] CLIA [id number] [address] [place] Hematocrit (Bld) [Volume fraction] 32.5 % Low 36.0-46.0 [facility] Comment on above: Order Comment: Speci men Type: BLOOD SPECIMEN Ordering Facility: [facility] Address: [address] [place] [address] Performed By: #### 2 4321-2, 27702-08, #### [facility] CLIA [id number] [address] OF [facility] Hemoglobin (Bld) [Mass/Vol] 10.5 g/dL Low 11.5-15.5 [facility] Comment on above: Order Comment: Speci men Type: BLOOD SPECIMEN Ordering Facility: [facility] Address: [address] [place] [address] Performed By: #### 2 4321-2, 2776-08, #### [facility] CLIA [id number] [address] MCH (RBC) [Entitic mass] 29.7 pg Normal 26.0-34.0 [facility] Comment on above: Order Comment: Speci men Type: BLOOD SPECIMEN Ordering Facility: [facility] Address: [address] [place] [address] Performed By: #### 2 4321-2, 2776-08, #### [facility] CLIA [id number] [address] OF [facility] MCHC (RBC) [Mass/Vol] 32.3 g/dL Normal 30.5-36.0 [facility] Comment on above: Order Comment: Speci men Type: BLOOD SPECIMEN Ordering Facility: [facility] Address: [address] [place] [address] Performed By: #### 2 4321-2, 2776-08, #### [facility] CLIA [id number] [address] [place] MCV (RBC) [Entitic vol] 92.1 fL Normal 80.0-100.0 [facility] Comment on above: Order Comment: Speci men Type: BLOOD SPECIMEN Ordering Facility: [facility] Address: [address] [place] [address] Performed By: #### 2 4321-2, 27702-08, #### [facility] CLIA [id number] [address] [place] Nucleated RBC (Bld) [#/Vol] 10*3/uL Normal <0.01 [facility] Comment on above: Order Comment: Speci men Type: BLOOD SPECIMEN Ordering Facility: [facility] Address: [address] [place] [address] Performed By: #### 2 4321-2, 2777-1, #### [facility] CLIA [id number] [address] [place] Platelet mean volume (Bld) [Entitic vol] 10.5 fL Normal 9.0-12.7 [facility] Comment on above: Order Comment: Speci men Type: BLOOD SPECIMEN Ordering Facility: [facility] Address: [address] [place] [address] Performed By: #### 2 4321-2, 277-, #### [facility] CLIA [id number] [address] Platelets (Bld) [#/Vol] 367 10*3/uL Normal 150-400 [facility] Comment on above: Order Comment: Speci men Type: BLOOD SPECIMEN Ordering Facility: [facility] Address: [address] [place] [address] Performed By: #### 2 4321-2, 2776-1, #### [facility] CLIA [id number] [address] [place] RBC (Bld) [#/Vol] 3.53 10*6/uL Low 3.90-5.20 [facility] Comment on above: Order Comment: Speci men Type: BLOOD SPECIMEN Ordering Facility: [facility] Address: [address] [place] [address] Performed By: #### 2 4321-2, 277-1, #### [facility] CLIA [id number] [address] [place] WBC (Bld) [#/Vol] 10.12 10*3/uL Normal 3.70-11.00 [facility] Comment on above: Order Comment: Speci men Type: BLOOD SPECIMEN Ordering Facility: [facility] Address: [facility] [place] [address] Performed By: #### 2 4321-2, 2777-1, 16287-6 #### [facility] CLIA [id number] [address] [place] CONSULTon 12-20-2024 CONSULT HNO ID: [id number] Author: JUANY GUERRERO PA-C Service: Neuroendovascular Intervention Author Type: Physician Engineer/Conductor Type: Consults Filed: 12/20/2024 09:52 Note Text: NEUROENDOVASCULAR CONSULT Patient Name: Willem Evans CONSULTED BY: Neurology CONSULTED FOR: R M1 occlusion vs stenosis CHIEF COMPLAINT: Stroke HPI: Willem Evans is a 79 year old female w/ PMHx significant for HTN and dementia who presented 12/18 with concern for left-sided weakness and slurred speech. TNK given at 2006. Post-TNK improved to NIH of 1, therefore thrombectomy was deferred. MRA completed yesterday noted persistent R M1 occlusion vs high-grade stenosis. Recent use of any anti-plts or anti-coagulants: No PAST MEDICAL HISTORY: PAST MEDICAL HISTORY Diagnosis Date Allergic rhinitis, cause unspecified Generalized anxiety disorder with social component Irritable bowel syndrome mainly constipation Osteoporosis, unspecified per prior DEXA times 2 Overweight(278.02) PAST SURGICAL HISTORY: PAST SURGICAL HISTORY Procedure Laterality Date COLONOSCOPY [address] [facility], NORMAL LIG/TRNSXJ FLP TUBE ABDL/VAG APPR UNI/BI Tubal ligation she was 36 years old FAMILY HISTORY: FAMILY HISTORY Problem Relation Age of Onset Stroke Father at 85, healthy til then Breast Cancer Maternal Aunt roughly 40 Colon Cancer Other none Coronary Artery Disease Other none Diabetes Other none SOCIAL HISTORY: Social History Tobacco Use Smoking status: Never Smokeless tobacco: Never Tobacco comments: Goes by Willem Vaping Use Vaping status: Never Used Substance Use Topics Alcohol use: No Drug use: No MEDICATIONS: traMADol (ULTRAM) 50 mg tabletTake 1 tablet by mouth four times a day as needed for pain for up to 15 days.Disp: 30 tabletRfl: 1 busPIRone (BUSPAR) 10 mg tabletTake 1 tablet by mouth three times a day.Disp: 90 tabletRfl: 5 memantine (NAMENDA) 10 mg tabletTake 1 tablet by mouth two times a day.Disp: 180 tabletRfl: 1 traZODone (DESYREL) 50 mg tabletTake 1 tablet by mouth daily at bedtime.Disp: 30 tabletRfl: 5 methocarbamol (ROBAXIN) 500 mg tabletTake 1 tablet by mouth three times a day as needed.Disp: 60 tabletRfl: 1 gabapentin (NEURONTIN) 100 mg capsuleTake 1 capsule by mouth three times a day as needed for up to 90 days.Disp: 90 capsuleRfl: 2 losartan (COZAAR) 25 mg tabletTake 1 tablet by mouth once daily.Disp: 30 tabletRfl: 5 FLUoxetine (PROZAC) 40 mg capsuleTake 1 capsule by mouth once daily.Disp: 90 capsuleRfl: 3 FLUoxetine (PROZAC) 20 mg capsuleTake 1 capsule by mouth once daily. Take along with 40 mg pill for a total of 60 mg dailyDisp: 90 capsuleRfl: 3 ondansetron (ZOFRAN) 4 mg tabletTake 4 mg by mouth every 8 hours as needed for nausea/vomiting.Disp: Rfl: pantoprazole DR (PROTONIX) 40 mg tabletTake 40 mg by mouth every 12 hours.Disp: Rfl: (Patient not taking: Reported on 10/25/2024) conjugated estrogens (PREMARIN) vaginal creamUse 1 g vaginally two times a week.Disp: 42.5 gRfl: 1 multivitamin (MULTIPLE VITAMINS) tabletTake by mouth.Disp: Rfl: loratadine (CLARITIN) 10 mg tabletTake by mouth.Disp: Rfl: acetaminophen (TYLENOL EXTRA STRENGTH) 500 mg tabletTake 2 tablets by mouth every 6 hours as needed for pain.Disp: Rfl: MELATONIN ORALTake 6 mg by mouth daily at bedtime.Disp: Rfl: DAILY MULTIVITAMIN TABTake one(1) tablet daily.Disp: Rfl: 0 Current Facility-Administered Medications Medication Dose Route Frequency traMADol 50 mg tab(s) (ULTRAM) 50 mg ORAL QID PRN busPIRone 10 mg tab(s) (BUSPAR) 10 mg ORAL/FEEDING TUBE TID FLUoxetine 20 mg cap(s) (PROzac) 20 mg ORAL/FEEDING TUBE DAILY FLUoxetine 40 mg cap(s) (PROzac) 40 mg ORAL/FEEDING TUBE DAILY memantine 10 mg tab(s) (NAMENDA) 10 mg ORAL/FEEDING TUBE BID methocarbamol 500 mg tab(s) (ROBAXIN) 500 mg ORAL/FEEDING TUBE TID PRN NaCl 0.9% iv flush bag 20 mL INTRAVENOUS PRN atorvastatin 40 mg tab(s) (LIPITOR) 40 mg ORAL/FEEDING TUBE AT BEDTIME labetalol 10 mg injection syringe (NORMODYNE) 10 mg INTRAVENOUS q 10 MIN PRN acetaminophen 650 mg tab(s) (TYLENOL) 650 mg ORAL/FEEDING TUBE q 4 H PRN senna-docusate 8.6-50 mg 1 tablet (SENNA-S) 1 tablet ORAL/FEEDING TUBE BID ondansetron (PF) 4 mg injection (ZOFRAN) 4 mg INTRAVENOUS q 6 H PRN sodium chloride 0.9 % (flush) 2-10 mL (BD POSIFLUSH) 2-10 mL INTRAVENOUS DIRECTED PRN And perflutren lipid microspheres 1.1 mg/mL 1.3 mL injection (DEFINITY) 1.3 mL INTRAVENOUS DIRECTED PRN traZODone 50 mg tab(s) (DESYREL) 50 mg ORAL/FEEDING TUBE AT BEDTIME gabapentin 100 mg cap(s) (NEURONTIN) 100 mg ORAL/FEEDING TUBE TID potassium chloride ER 20-40 mEq tab(s) (KLOR-CON) 20-40 mEq ORAL/FEEDING TUBE PRN Or potassium chloride iv piggyback 20 mEq/100 mL 20 mEq INTRAVENOUS PRN magnesium sulfate iv piggyback in sterile water 2 g 50 mL 2 g INTRAVENOUS PRN phosphorus 500 mg tab(s) (K PHOS NEUTRAL) 500 mg ORAL/FEEDING TUBE PRN(NO DISPENSE) (more content not included)... Normal [facility] Calcium.ionized [Moles/Vol]o n 12-20-2024 Calcium.ionized (BldV) [Mass/Vol] 1.20 mmol/L Normal 1.08-1.30 [facility] Comment on above: Order Comment: Speci men Type: BLOOD SPECIMEN Ordering Facility: [facility] Address: [address] [place], [place] [address] Performed By: #### 1 995-0 #### [facility] CLIA [id number] [address] [place] Calcium.ionized adjusted to pH 7.4 (Bld) [Moles/Vol] 1.24 mmol/L Normal 1.08-1.30 [facility] Comment on above: Order Comment: Speci men Type: BLOOD SPECIMEN Ordering Facility: [facility] Address: [address] [place] [address] Performed By: #### 1 995-0 #### [facility] CLIA [id number] [address] STATES OF [facility] ECHO WITH AGITATED SALINE CO NTRASTon 12-20-2024 ECHO WITH AGITATED SALINE CONTRAST Echocardiography Report: Transthoracic Echo [facility] Date of service: 12/20/2024 1:52[facility] Ordering physician: TABITHA CHAUHAN Indication: Stroke Technologist: Sander Kent [facility] Interpreting physician: Jay Rapp MD PATIENT: Name: MRS. WILLEM EVANS : 1945 Age: 79 years Gender: F History of hypertension. Primary rhythm: sinus. Height: 162.60 cm BSA: 1.68 m Weight: 62.60 kg BMI: 23.7 kg/m Heart rate 77 bpm Blood pressure 110/87 mmHg Technically difficult exam due to suboptimal positioning. Color Doppler was utilized to interrogate the cardiac valves assessed and spectral Doppler was utilized to determine the flow velocities and pressure gradients reported in this exam. MEASUREMENTS: Value Indexed Normal Max aortic dimension 3.3 cm Ao < 3.8 LV ID (diastole) 3.6 cm (2D) 2.15 cm/m LV ID (systole) 2.5 cm (2D) 1.49 cm/m IVS, leaflet tips 1.2 cm (2D) Posterior wall thickness 1.3 cm (2D) Left ventricular mass 155 g (2D) 92 g/m LV end diastolic volume 66 ml (2D 4-ch.) 39.2 ml/m 29<=EDVi<62 Ejection Fraction 55 % (visual est.) EF > 54 FINDINGS: LEFT VENTRICLE The left ventricle is normal in size. There is mild concentric left ventricular hypertrophy. Left ventricular systolic function is normal regionally. Normal left ventricular diastolic function. Mitral annular lateral E/e': 11.6. Mitral annular septal E/e': 18.4. Wall Motion: The basal inferior segment and basal inferoseptal segment are mildly hypokinetic. All remaining scored segments are normal. RIGHT VENTRICLE The right ventricle is unseen or not interrogated. Estimated right atrial pressure is not included as the IVC was not seen. LEFT ATRIUM The left atrium is unseen or not interrogated. RIGHT ATRIUM The right atrium is unseen or not interrogated. MITRAL VALVE There is trace mitral valve regurgitation. There is mild thickening. The pressure half time is 76 msec. The peak mitral E/A ratio is 0.83. The mitral flow deceleration time is 261 msec. TRICUSPID VALVE The tricuspid valve leaflets are structurally normal. There is trace tricuspid valve regurgitation. AORTIC VALVE The aortic valve cusps are structurally normal. There is no aortic valve stenosis. There is trace aortic valve regurgitation. Tricuspid aortic valve. PULMONIC VALVE The pulmonic valve cusps are grossly normal. Doppler assessment not performed. AORTA The visualized aorta is normal in size. Measurements - Mid ascending aorta 3.3 cm. PULMONARY ARTERIES The pulmonary arteries are unseen or not interrogated. PERICARDIUM There is no pericardial effusion. CONCLUSIONS: - Technically difficult exam due to suboptimal positioning. - Exam indication: Stroke - The left ventricle is normal in size. There is mild concentric left ventricular hypertrophy. Left ventricular systolic function is normal. EF = 55 5% (visual est.) Normal left ventricular diastolic function. - The right ventricle is not well visualized. - No gross valve abnormality noted on limited evaluation. - Agitate saline contrast study not performed due to patient's advanced age. - The patient has not had a prior CC echocardiographic exam for comparison. * * * Final * * * [facility] : [id number] amicsSISUID Normal [facility] Magnesium SerPl-mCncon 12-20 Magnesium [Mass/Vol] 2.0 mg/dL Normal 1.7-2.3 [facility] Comment on above: Order Comment: Speci men Type: BLOOD SPECIMEN Ordering Facility: [facility] Address: [address] [place] [address] Performed By: #### 2 4321-2, 2777-1, #### [facility] CLIA [id number] [address] [place] Phosphate SerPl-mCncon 12-20 Phosphate [Mass/Vol] 3.0 mg/dL Normal 2.7-4.8 [facility] Comment on above: Order Comment: Speci men Type: BLOOD SPECIMEN Ordering Facility: [facility] Address: [address] [place] [address] Performed By: #### 2 4321-2, 2777-1, #### [facility] CLIA [id number] [address] THERAPY NTon 12-20-2024 THERAPY NT HNO ID: [id number] Author: ARTIE MOORE CCC-GEOLOGICAL DRAFTER Service: Speech/Swallow Author Type: Speech Language Pathologist Type: Therapy (PT/OT/Speech/Resp) Filed: 12/20/2024 15:53 Note Text: Speech Therapy Speech Evaluation SERVICE DATE: 12/20/2024 SERVICE TIME: 1310 to 1330 ROOM: [place] [id number] ([facility]) IMPRESSION Communication deficits identified: Expressive aphasia, Receptive aphasia, Cognitive-Linguistic deficits Speech Rehab Potential: Good RECOMMENDATIONS Diet Recommendations Swallow Strategy Recommendations Nursing Recommendations Simplify commands to 1 step, Offer patient Yes/No questions as able, Reinforce use of taught communication strategies, Re-orienting frequently throughout the day, Reinforce use of cognitive strategies Instrumental Swallow Study Recommendations Recommended Consults Response to Therapy Interventions: Good participation in activities, Confusion interferes with education Rehabilitation Precautions: Cognitive Linguistics Deficits DISCHARGE RECOMMENDATIONS Recommended Discharge Disposition: Continued Skilled Speech Therapy CURRENT HOSPITAL COURSE Admitted 12/18/24 with acute ischemic stroke. 12/19 Brain MRI: 1. Patchy areas of restricted diffusion in the right MCA territory consistent with acute infarct. 2. No evidence of intracranial hemorrhage. 3. Chronic microvascular ischemic changes and volume loss, most pronounced in the mesial temporal region. Reason for Speech Therapy Consult: Concerns for cognitive-linguistic skill changes Relevant Past Medical History: Dementia, HTN HOME ENVIRONMENT / PRIOR FUNCTIONAL LEVEL Prior Functional Level: Required Assistance Patient Lives With: Spouse Assistance Available: multimedia designer Prior Swallowing Function/Diet Textures: Regular Consistency, Thin Liquids IDDSI Level 0 SUBJECTIVE Patient agreeable to evaluation. THERAPY DIAGNOSIS Cognitive-Communicati on Deficits TREATMENT INTERVENTIONS Speech Language Jose Luis ([id number]) Skilled Treatment Time (minutes): 20 TRAINING AND EDUCATION PROVIDED IN Cognitive Linguistic Strategies, Memory Recall Techniques THERAPEUTIC SKILLS USED Education on role of discipline / importance of activity OBJECTIVE Current Status Oral Hygiene: Clear, moist oral cavity Dentition: Retains Natural Dentition Current Feeding Method: Oral Current Diet Textures: Regular Consistency, Thin Liquids IDDSI Level 0 Current Level Of Communication: Verbal Current Management Of Secretions: Able to self-manage Oral Motor Exam: Within Functional Limits COGNITION Cognitive Status: Within Functional Limits For Current Session Except Cognitive Deficits: Orientation Deficits, Responsiveness, Attention Deficit, Memory Deficits, Executive Function Deficit Orientation Deficits: Place, Time, Situation, Confused Responsiveness: Alert Attention Deficit: Selective, Sustained Memory Deficits: Functional, Short Term, Immediate, Domestic Housekeeper Executive Function Deficits: Problem Solving, Sequencing, Safety Awareness, Reasoning/Inferences, Organization, Convergent Naming, Divergent Naming The Cognitive Log (Cog-Log) is designed to be a quick quantitative measure of cognition status for use at the bedside with rehabilitation inpatients. It is intended for individuals who have achieved consistent accurate orientation, such as measured by the Orientation Log (O-Log). The Cog-Log can be used to document cognitive progress on a daily basis. All items are scored from 0 to 3 for a total possible score of 30. 3 = correct spontaneous response 2 = correct upon logical cueing (e.g., That was yesterday, so today must be...) 1 = correct upon multiple choice or phonemic cueing 0 = incorrect despite cueing, inappropriate response, or unable to respond Stimulus Response/Score Date 08/13 Time 0 Name of [facility] 0 Repeat Address 09/13 20-1 3 Months Reversed 0 30 Seconds 10/11 [facility] 08/13 Go/No-Go 08/13 Address Recall 08/13 Total 08/09 SPEECH/VOICE/LANGUAGE Speech Production: Within Functional Limits Voice Assessment: No Vocal Quality: Reduced Vocal Intensity Expressive and Receptive Language: Within Functional Limits Except Auditory Comprehension Deficits: 1-Step Commands, 2-Step Commands, Personal Yes/No Questions, Simple Yes/No Questions, Complex Yes/No Questions, Understanding 'Wh' Questions 1-Step Commands - (%): 80 1-Step Commands Cues Provided: Without Cues 2-Step Commands - (%): 33 2-Step Commands Cues Provided: Without Cues Personal Yes/No Questions - (%): 75 Personal Yes/No Questions Cues Provided: Without Cues Simple Yes/No Questions - (%): 70 Simple Yes/No Questions Cues Provided: Without Cues Complex Yes/No Questions - (%): 0 Complex Yes/No Questions Cues Provided: Without Cues Understanding 'Wh' Questions - (%): 50 % Understanding 'Wh' Questions Cues Provided: Without Cues Verbal Expression Deficits: Convergent Naming, Div (more content not included)... Normal [facility] THERAPY NT HNO ID: [id number] Author: LOS ST PT Service: Physical Therapy Author Type: Physical Therapist Type: Therapy (PT/OT/Speech/Resp) Filed: 12/20/2024 14:18 Note Text: PHYSICAL THERAPY MISSED VISIT SERVICE DATE: 12/20/2024 SERVICE TIME: 0903 ROOM: [place] [address] (RADIO MRI [facility]) Patient not seen due to Clinical Appropriateness (venous duplex pending). Will follow as appropriate. SIGNATURE: Los St PT PATIENT NAME: Willem Evans DATE: December 20, 2024 TIME: 2:18 PM [facility] THERAPY NT HNO ID: [id number] Author: ANI RAUSCH OTR/L Service: Occupational Therapy Author Type: Occupational Therapist Type: Therapy (PT/OT/Speech/Resp) Filed: 12/20/2024 11:18 Note Text: OCCUPATIONAL THERAPY MISSED VISIT SERVICE DATE: 12/20/2024 SERVICE TIME: 1117 ROOM: [place] [address] (RADIO MRI [place] [facility]) Patient not seen due to Clinical Appropriateness (bilateral lower extremity venous duplex results pending). SIGNATURE: BRENDA Nieves/Ned PATIENT NAME: Willem Evans DATE: December 20, 2024 TIME: 11:18 AM [facility] ALLIED HEALTH 12-19-2024 ALLIED HEALTH HNO ID: [id number] Author: MARINA SUAZO RT(R) Service: Radiology Author Type: Technologist Type: Allied Health Filed: 12/21/2024 07:29 Note Text: Radiology Service Progress Note PATIENT NAME: Willem Evans DATE OF SERVICE: December 19, 2024 TIME: 6:17 PM PATIENT IDENTITY VERIFICATION COMPLETED USING TWO (2) IDENTIFIERS: Name and Date of confirmed by identification band. FALL SCREENING: Has the patient had 2 falls in the last year or 1 fall with injury or currently using an Ambulatory Assistive Device (Walker, Cane, Wheelchair, Crutches, etc.)? Inpatient: Screened on floor PATIENT GENDER DATA: Assigned female at . status: : No status: NO. RADIOLOGY DEPARTMENT: Ultrasound PERIPHERAL IV DATA: Inpatient: see LDA documentation SIGNED BY: RT Yuliya(R) [facility] RVT December 19, 2024 6:17 PM Normal [facility] ALLIED HEALTH HNO ID: [id number] Author: ANDREWS ANDRE RT(Veronica) Service: Radiology Author Type: Technologist Type: Allied Health Filed: 12/19/2024 16:54 Note Text: Radiology Service Progress Note PATIENT NAME: Willem Evans DATE OF SERVICE: December 19, 2024 TIME: 4:53 PM PATIENT IDENTITY VERIFICATION COMPLETED USING TWO (2) IDENTIFIERS: Name and Date of confirmed by patient verbally and Name and Date of confirmed by identification band. FALL SCREENING: Has the patient had 2 falls in the last year or 1 fall with injury or currently using an Ambulatory Assistive Device (Walker, Cane, Wheelchair, Crutches, etc.)? Inpatient: Screened on floor PATIENT GENDER DATA: Assigned female at . status: : No status: NO. PATIENT RELEVANT IMPLANT DATA REVIEWED: Yes PATIENT PRESENTS WITH AN IMPLANTABLE OR ATTACHED OB GYN: No RADIOLOGY DEPARTMENT: MR; Exam(s) Completed: Head: Routine Brain Freeman of [place] MRA Neck: Carotids MRA, bilateral. Lavender Administered: No PERIPHERAL IV DATA: Not applicable SIGNED BY: RT Anh(R) December 19, 2024 4:53 PM Normal [facility] Basic metabolic 2000 panelon 12-19-2024 Anion gap [Moles/Vol] 12 mmol/L Normal 8-15 [facility] Comment on above: Order Comment: Speci men Type: BLOOD SPECIMEN Ordering Facility: [facility] Address: [address] [place] [address] Performed By: #### 2 4331-1, 86514-2, , 2776-08 #### [facility] CLIA [id number] 1 [place] [address] [place] Calcium [Mass/Vol] 8.8 mg/dL Normal 8.5-10.2 [facility] Comment on above: Order Comment: Speci men Type: BLOOD SPECIMEN Ordering Facility: [facility] Address: [address] [place] [address] Performed By: #### 2 4331-1, 06033-4, , 2776-08 #### [facility] CLIA [id number] 1 [place] [address] [place] Chloride [Moles/Vol] 106 mmol/L Normal 98-107 [facility] Comment on above: Order Comment: Speci men Type: BLOOD SPECIMEN Ordering Facility: [facility] Address: [address] [place] [address] Performed By: #### 2 4331-1, 00564-9, , 2776-08 #### [facility] CLIA [id number] [address] [place] [address] [place] CO2 [Moles/Vol] 22 mmol/L Normal 22-30 [facility] Comment on above: Order Comment: Speci men Type: BLOOD SPECIMEN Ordering Facility: [facility] Address: [address] [place] [address] Performed By: #### 2 4331-1, 61989-1, , 2776-08 #### [facility] CLIA [id number] [address] [place] [address] [place] Creatinine [Mass/Vol] 0.58 mg/dL Normal 0.58-0.96 [facility] Comment on above: Order Comment: Speci men Type: BLOOD SPECIMEN Ordering Facility: [facility] Address: [address] [place] [address] Performed By: #### 2 4331-1, 16329-1, , 2776-08 #### [facility] CLIA [id number] [address] [place] Creatinine and Glomerular filtration rate.predicted panel (S/P/Bld) 92 mL/min/1.73m??? Normal >=60 [facility] Comment on above: Order Comment: Marlene castañeda Type: BLOOD SPECIMEN Ordering Facility: [facility] Address: [address] [place] [address] Result Comment: Hoda mated Glomerular Filtration Rate (eGFR) is calculated using the 2020 CKD-EPI creatinine equation. This equation utilizes serum creatinine, sex, and age as parameters. The creatinine assay has traceable calibration to isotope dilution-mass spectrometry. Refer to KDIGO guidelines for clinical interpretation. In patients with unstable renal function, e.g. those with acute kidney injury, the eGFR may not accurately reflect actual GFR. Performed By: #### 2 4331-1, 93201-8, , 2776-08 #### [facility] CLIA [id number] [address] [place] [address] [place] Glucose [Mass/Vol] 111 mg/dL High 74-99 [facility] Comment on above: Order Comment: Marlene castañeda Type: BLOOD SPECIMEN Ordering Facility: [facility] Address: [address] [place] [address] Result Comment: The [place] Diabetes [employer] (ADA) provides guidance for cutoff values for fasting glucose and random glucose. The ADA defines fasting as no caloric intake for at least 8 hours. Fasting plasma glucose results between 100 to 125 mg/dL indicate increased risk for diabetes (prediabetes). Fasting plasma glucose results greater than or equal to 126 mg/dL meet the criteria for diagnosis of diabetes. In the absence of unequivocal hyperglycemia, results should be confirmed by repeat testing. In a patient with classic symptoms of hyperglycemia or hyperglycemic crisis, random plasma glucose results greater than or equal to 200 mg/dL meet the criteria for diagnosis of diabetes. Reference: Standards of Medical Care in Diabetes 2016, [place] [employer] Association. Diabetes Care. 2016.39(Suppl 1). Performed By: #### 2 4331-1, 75719-7, , 2776-08 #### [facility] CLIA [id number] [address] [place] [address] [place] Potassium [Moles/Vol] 3.1 mmol/L Low 3.7-5.1 [facility] Comment on above: Order Comment: Speci men Type: BLOOD SPECIMEN Ordering Facility: [facility] Address: [address] [place] [address] Performed By: #### 2 4331-1, 04726-9, 50331-8, 2776-1 #### [facility] CLIA [id number] [address] [place] Sodium [Moles/Vol] 140 mmol/L Normal 136-144 [facility] Comment on above: Order Comment: Speci men Type: BLOOD SPECIMEN Ordering Facility: [facility] Address: [address] [place] [address] Performed By: #### 2 4331-1, 87056-4, , 2776- #### [facility] CLIA [id number] [address] Urea nitrogen [Mass/Vol] 10 mg/dL Normal 7-21 [facility] Comment on above: Order Comment: Speci men Type: BLOOD SPECIMEN Ordering Facility: [facility] Address: [address] [place] [address] Performed By: #### 2 4331-1, 09666-6, 22787-7, 2776-1 #### [facility] CLIA [id number] [address] [place] CBC panel Auto (Bld)on 12-19 Erythrocyte distribution width (RBC) [Ratio] 15.1 % High 11.5-15.0 [facility] Comment on above: Order Comment: Speci men Type: BLOOD SPECIMEN Ordering Facility: [facility] Address: [address] [place] [address] Performed By: #### 2 4321-2, 2777-1, 58282-5 #### [facility] CLIA [id number] [address] [place] [address] [place] Hematocrit (Bld) [Volume fraction] 31.3 % Low 36.0-46.0 [facility] Comment on above: Order Comment: Speci men Type: BLOOD SPECIMEN Ordering Facility: [facility] Address: [address] [place] [address] Performed By: #### 2 4321-2, 2776-08, #### [facility] CLIA [id number] [address] [place] Hemoglobin (Bld) [Mass/Vol] 10.1 g/dL Low 11.5-15.5 [facility] Comment on above: Order Comment: Speci men Type: BLOOD SPECIMEN Ordering Facility: [facility] Address: [address] [place] [address] Performed By: #### 2 4321-2, 2776-08, #### [facility] CLIA [id number] [address] [place] [address] MCH (RBC) [Entitic mass] 29.3 pg Normal 26.0-34.0 [facility] Comment on above: Order Comment: Speci men Type: BLOOD SPECIMEN Ordering Facility: [facility] Address: [address] [place] [address] Performed By: #### 2 4321-2, 2776-08, #### [facility] CLIA [id number] [address] [place] [address] [place] [facility] MCHC (RBC) [Mass/Vol] 32.3 g/dL Normal 30.5-36.0 [facility] Comment on above: Order Comment: Speci men Type: BLOOD SPECIMEN Ordering Facility: [facility] Address: [address] [place] [address] Performed By: #### 2 4321-2, 2776-08, #### [facility] CLIA [id number] [address] OF [facility] MCV (RBC) [Entitic vol] 90.7 fL Normal 80.0-100.0 [facility] Comment on above: Order Comment: Speci men Type: BLOOD SPECIMEN Ordering Facility: [facility] Address: [address] [place] [address] Performed By: #### 2 4321-2, 2776-08, #### [facility] CLIA [id number] [address] [place] [address] [place] Nucleated RBC (Bld) [#/Vol] 10*3/uL Normal <0.01 [facility] Comment on above: Order Comment: Speci men Type: BLOOD SPECIMEN Ordering Facility: [facility] Address: [address] [place] [address] Performed By: #### 2 4321-2, 2776-08, #### [facility] CLIA [id number] [address] [place] [address] [place] Platelet mean volume (Bld) [Entitic vol] 10.1 fL Normal 9.0-12.7 [facility] Comment on above: Order Comment: Speci men Type: BLOOD SPECIMEN Ordering Facility: [facility] Address: [address] [place] [address] Performed By: #### 2 4321-2, 2776-08, #### [facility] CLIA [id number] [address] [place] Platelets (Bld) [#/Vol] 327 10*3/uL Normal 150-400 [facility] Comment on above: Order Comment: Speci men Type: BLOOD SPECIMEN Ordering Facility: [facility] Address: [address] [place] [address] Performed By: #### 2 4321-2, 2776-08, #### [facility] CLIA [id number] [address] [place] [address] [place] RBC (Bld) [#/Vol] 3.45 10*6/uL Low 3.90-5.20 [facility] Comment on above: Order Comment: Speci men Type: BLOOD SPECIMEN Ordering Facility: [facility] Address: [address] [place] [address] Performed By: #### 2 4321-2, 2777-1, #### [facility] CLIA [id number] 1 [place] [address] [place] WBC (Bld) [#/Vol] 10.51 10*3/uL Normal 3.70-11.00 [facility] Comment on above: Order Comment: Speci men Type: BLOOD SPECIMEN Ordering Facility: [facility] Address: [facility] [place] [address] Performed By: #### 2 4321-2, 2777-1, #### [facility] CLIA [id number] [address] [place] [id number] [facility] CONSULTon 12-19-2024 CONSULT HNO ID: [id number] Author: DENNIS COLINDRES MD Service: Neurology General Author Type: Physician Type: Consults Filed: 12/19/2024 14:16 Note Text: NEURO STROKE INITIAL CONSULT SERVICE DATE: 12/19/2024 SERVICE TIME: 1130 REQUESTING PHYSICIAN: Dr Mckeon PCP: Citlaly العراقي MD 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 iNIHSS 12 for which she received IV TNK, CTH neg, CTA w/ RM1 occlusion, transferred to [facility] for further management and potential EVT. Symptomatically improved after arrival without need for thrombectomy. Patient remains confused (baseline AOX1), but able to move L side this morning. Pre-admission Was patient on antithrombotic agent prior to admission: No Was patient on lipid lowering agent prior to admission: No Pre-morbid mRS: Premorbid Modified [place] Score: 4 - Moderately severe disability - unable to walk without assistance and unable to attend to own bodily needs without assistance PAST MEDICAL HISTORY Diagnosis Date Allergic rhinitis, cause unspecified Generalized anxiety disorder with social component Irritable bowel syndrome mainly constipation Osteoporosis, unspecified per prior DEXA times 2 Overweight(278.02) PAST SURGICAL HISTORY Procedure Laterality Date COLONOSCOPY [address] ABEL [facility], NORMAL LIG/TRNSXJ FLP TUBE ABDL/VAG APPR UNI/BI Tubal ligation she was 36 years old Social History Tobacco Use Smoking status: Never Smokeless tobacco: Never Tobacco comments: Goes by Willem Vaping Use Vaping status: Never Used Substance Use Topics Alcohol use: No Drug use: No FAMILY HISTORY Problem Relation Age of Onset Stroke Father at 85, healthy til then Breast Cancer Maternal Aunt roughly 40 Colon Cancer Other none Coronary Artery Disease Other none Diabetes Other none ALLERGIES No Known Allergies MEDICATION Pre-admission traMADol (ULTRAM) 50 mg tablet, Take 1 tablet by mouth four times a day as needed for pain for up to 15 days., Disp: 30 tablet, Rfl: 1 busPIRone (BUSPAR) 10 mg tablet, Take 1 tablet by mouth three times a day., Disp: 90 tablet, Rfl: 5 memantine (NAMENDA) 10 mg tablet, Take 1 tablet by mouth two times a day., Disp: 180 tablet, Rfl: 1 traZODone (DESYREL) 50 mg tablet, Take 1 tablet by mouth daily at bedtime., Disp: 30 tablet, Rfl: 5 methocarbamol (ROBAXIN) 500 mg tablet, Take 1 tablet by mouth three times a day as needed., Disp: 60 tablet, Rfl: 1 gabapentin (NEURONTIN) 100 mg capsule, Take 1 capsule by mouth three times a day as needed for up to 90 days., Disp: 90 capsule, Rfl: 2 losartan (COZAAR) 25 mg tablet, Take 1 tablet by mouth once daily., Disp: 30 tablet, Rfl: 5 FLUoxetine (PROZAC) 40 mg capsule, Take 1 capsule by mouth once daily., Disp: 90 capsule, Rfl: 3 FLUoxetine (PROZAC) 20 mg capsule, Take 1 capsule by mouth once daily. Take along with 40 mg pill for a total of 60 mg daily, Disp: 90 capsule, Rfl: 3 ondansetron (ZOFRAN) 4 mg tablet, Take 4 mg by mouth every 8 hours as needed for nausea/vomiting., Disp: , Rfl: pantoprazole DR (PROTONIX) 40 mg tablet, Take 40 mg by mouth every 12 hours. (Patient not taking: Reported on 10/25/2024), Disp: , Rfl: conjugated estrogens (PREMARIN) vaginal cream, Use 1 g vaginally two times a week., Disp: 42.5 g, Rfl: 1 multivitamin (MULTIPLE VITAMINS) tablet, Take by mouth., Disp: , Rfl: loratadine (CLARITIN) 10 mg tablet, Take by mouth., Disp: , Rfl: acetaminophen (TYLENOL EXTRA STRENGTH) 500 mg tablet, Take 2 tablets by mouth every 6 hours as needed for pain., Disp: , Rfl: MELATONIN ORAL, Take 6 mg by mouth daily at bedtime., Disp: , Rfl: DAILY MULTIVITAMIN TAB, Take one(1) tablet daily., Disp: , Rfl: 0 Current traMADol (ULTRAM) 50 mg tabletTake 1 tablet by mouth four times a day as needed for pain for up to 15 days.Disp: 30 tabletRfl: 1 busPIRone (BUSPAR) 10 mg tabletTake 1 tablet by mouth three times a day.Disp: 90 tabletRfl: 5 memantine (NAMENDA) 10 mg tabletTake 1 tablet by mouth two times a day.Disp: 180 tabletRfl: 1 traZODone (DESYREL) 50 mg tabletTake 1 tablet by mouth daily at bedtime.Disp: 30 tabletRfl: 5 methocarbamol (ROBAXIN) 500 mg tabletTake 1 tablet by mouth three times a day as needed.Disp: 60 tabletRfl: 1 gabapentin (NEURONTIN) 100 mg capsuleTake 1 capsule by mouth three times a day as needed for up to 90 days.Disp: 90 capsuleRfl: 2 losartan (COZAAR) 25 mg tabletTake 1 tablet by mouth once daily.Disp: 30 tabletRfl: 5 FLUoxetine (PROZAC) 40 mg capsuleTake 1 capsule by mouth once daily.Disp: 90 capsuleRfl: 3 FLUoxetine (PROZAC) 20 mg capsuleTake 1 capsule by mouth once daily. Take along with 40 mg pill for a total of 60 mg dailyDisp: 90 capsuleRfl: 3 ondansetron (ZOFRAN) 4 mg tabletTake 4 mg by mouth every 8 hours as needed for nausea/vomiting.Disp: Rfl: pantopra (more content not included)... Normal [facility] CT BRAIN WO IVCONon 12-20-19 CT BRAIN WO IVCON * * *Final Report* * * DATE OF EXAM: Dec 19 2024 9:13PM [facility] 0504 - CT BRAIN WO IVCON / PROCEDURE REASON: Stroke, follow up * * * * Physician Interpretation * * * * EXAMINATION: CT BRAIN WO IVCON CLINICAL HISTORY: Stroke, follow-up. TECHNIQUE: Serial axial images without IV contrast were obtained from the vertex to the foramen magnum. MQ: CTBWO_3 CT Radiation dose: Integrated Dose-Length Product (DLP) for this visit = 1447 mGy*cm CT Dose Reduction Employed: Automated exposure control(AEC) and iterative recon COMPARISON: MRI brain 12/19/2024. RESULT: Localizer images: No significant findings. Post-operative change: None. Acute change: Expected evolution of areas of infarct at the right MCA territory. Hemorrhage: No evidence of acute intracranial hemorrhage. ECASS hemorrhagic transformation score: Not Applicable Mass Lesion / Mass Effect: There is no evidence of an intracranial mass or extraaxial fluid collection. No significant mass effect. Chronic change: Scattered patchy foci of low attenuation are present within the supratentorial white matter, a nonspecific finding that most commonly represents mild small vessel disease. Parenchyma: There is mild generalized volume loss. The brain parenchyma is otherwise within normal limits for age. Ventricles: Ventricular enlargement concordant with the degree of parenchymal volume loss. Paranasal sinuses and skull base: Small volume aerated fluid within the left maxillary sinus. The skull base and imaged soft tissues are unremarkable. IMPRESSION: Expected evolution of areas of infarct at the right MCA territory. No hemorrhagic conversion. Nut Tapper: PSCB Transcribe Date/Time: Dec 19 2024 10:17P Dictated by : KEATON ARELLANO MD This examination was interpreted and the report reviewed and electronically signed by: KEATON ARELLANO MD on Dec 19 2024 10:21PM EST [id number] Normal [facility] Calcium.ionized [Moles/Vol]o n 12-19-2024 Calcium.ionized (BldV) [Mass/Vol] 1.21 mmol/L Normal 1.08-1.30 [facility] Comment on above: Order Comment: Speci men Type: BLOOD SPECIMEN Ordering Facility: [facility] Address: [address] [place] [address] Performed By: #### 2 4321-2, 2777-1, 97059-2 #### [facility] CLIA [id number] [address] [place] [address] [place] Calcium.ionized adjusted to pH 7.4 (Bld) [Moles/Vol] 1.22 mmol/L Normal 1.08-1.30 [facility] Comment on above: Order Comment: Marlene men Type: BLOOD SPECIMEN Ordering Facility: [facility] Address: [address], [place] [address] Performed By: #### 2 4321-2, 2777-1, 51166-5 #### [facility] CLIA [id number] [address] [place] [address] [place] HISTORY PHYSICALon HISTORY PHYSICAL HNO ID: [id number] Author: ANJALI MCKEON MD Service: Neurology ICU Author Type: Nurse Practitioner Type: H&P Filed: 12/19/2024 10:23 Note Text: Attestation signed by Anjali Mckeon MD at 12/19/2024 10:23 AM Reviewed and agree with. Duplex ECHO Follow exam Updated family SERVICE DATE: 12/19/2024 SERVICE TIME: 12:10 AM NEUROLOGICAL INTENSIVE CARE UNIT HISTORY AND PHYSICAL REASON FOR ADMISSION: R M1 occlusion s/p TNK Subjective HPI: This is a 79yo f, pmh of dementia and HTN, brought in by EMS to [place] ED for LFD and left sided weakness. Per report, patient's LKW was approximately 1730, prior to arriving to ED. iNIHSS 12 LFD, left sided weakness, left neglect, and slurred speech. Telestroke was consulted and recommend TNK. TNK was given at 2006. Symptoms improved to NIHSS 1 for mild left facial droop. She was briefly started on cardene infusion for SBP 190s. NIL at [facility] was consulted and recommends transferring patient to NSICU for closer neurological monitoring and possible emergent mechanical thrombectomy. PAST MEDICAL HISTORY Diagnosis Date Allergic rhinitis, cause unspecified Generalized anxiety disorder with social component Irritable bowel syndrome mainly constipation Osteoporosis, unspecified per prior DEXA times 2 Overweight(278.02) PAST SURGICAL HISTORY Procedure Laterality Date COLONOSCOPY [address] ABEL [facility], NORMAL LIG/TRNSXJ FLP TUBE ABDL/VAG APPR UNI/BI Tubal ligation she was 36 years old FAMILY HISTORY Problem Relation Age of Onset Stroke Father at 85, healthy til then Breast Cancer Maternal Aunt roughly 40 Colon Cancer Other none Coronary Artery Disease Other none Diabetes Other none ALLERGIES No Known Allergies PRIOR TO ADMISSION MEDICATIONS: traMADol (ULTRAM) 50 mg tablet, Take 1 tablet by mouth four times a day as needed for pain for up to 15 days., Disp: 30 tablet, Rfl: 1 busPIRone (BUSPAR) 10 mg tablet, Take 1 tablet by mouth three times a day., Disp: 90 tablet, Rfl: 5 memantine (NAMENDA) 10 mg tablet, Take 1 tablet by mouth two times a day., Disp: 180 tablet, Rfl: 1 traZODone (DESYREL) 50 mg tablet, Take 1 tablet by mouth daily at bedtime., Disp: 30 tablet, Rfl: 5 methocarbamol (ROBAXIN) 500 mg tablet, Take 1 tablet by mouth three times a day as needed., Disp: 60 tablet, Rfl: 1 gabapentin (NEURONTIN) 100 mg capsule, Take 1 capsule by mouth three times a day as needed for up to 90 days., Disp: 90 capsule, Rfl: 2 losartan (COZAAR) 25 mg tablet, Take 1 tablet by mouth once daily., Disp: 30 tablet, Rfl: 5 FLUoxetine (PROZAC) 40 mg capsule, Take 1 capsule by mouth once daily., Disp: 90 capsule, Rfl: 3 FLUoxetine (PROZAC) 20 mg capsule, Take 1 capsule by mouth once daily. Take along with 40 mg pill for a total of 60 mg daily, Disp: 90 capsule, Rfl: 3 ondansetron (ZOFRAN) 4 mg tablet, Take 4 mg by mouth every 8 hours as needed for nausea/vomiting., Disp: , Rfl: pantoprazole DR (PROTONIX) 40 mg tablet, Take 40 mg by mouth every 12 hours. (Patient not taking: Reported on 10/25/2024), Disp: , Rfl: conjugated estrogens (PREMARIN) vaginal cream, Use 1 g vaginally two times a week., Disp: 42.5 g, Rfl: 1 multivitamin (MULTIPLE VITAMINS) tablet, Take by mouth., Disp: , Rfl: loratadine (CLARITIN) 10 mg tablet, Take by mouth., Disp: , Rfl: acetaminophen (TYLENOL EXTRA STRENGTH) 500 mg tablet, Take 2 tablets by mouth every 6 hours as needed for pain., Disp: , Rfl: MELATONIN ORAL, Take 6 mg by mouth daily at bedtime., Disp: , Rfl: DAILY MULTIVITAMIN TAB, Take one(1) tablet daily., Disp: , Rfl: 0 Social History Tobacco Use Smoking status: Never Smokeless tobacco: Never Tobacco comments: Goes by [employer] Use Vaping status: Never Used Substance Use Topics Alcohol use: No Drug use: No Employer And Job Title: None on file Years Of Education Completed: Not specified Marital Status: REVIEW OF SYSTEMS: The following systems were reviewed with the patient, and are unremarkable other than as described below. SYSTEMIC: No fever, chills, or change in weight or appetite HEENT: No recent change in vision or hearing. GI: No recent nausea, vomiting or diarrhea. : No recent hematuria or dysuria. SKIN: No recent itching or eruption. PSYCH: No recent active anxiety or depression. HEMATOLOGY/ONCOLOGY: No recent diagnosis of bleeding or cancer. ENDOCRINE: No recent diagnosis of DM or thyroid disease. RHEUMATOLOGY: No recent active connective tissue disease. Objective Vital Signs (Last 24hrs min/max): BP 174/70 Pulse 76 Resp 21 SpO2 96% PHYSICAL EXAM: NEUROLOGICAL: Awake and oriented to self and place, follow commands, LFD, PERRL, EOMI, 5mm brisk, NASH x4, no drift, 5/5 strength GCS: Eyes: 4. Spontaneous (more content not included)... Normal [facility] HbA1c (Bld)on 12-19-2024 Average glucose Estimated from glycated hemoglobin (Bld) [Mass/Vol] 111 mg/dL Normal [facility] Comment on above: Order Comment: Speci men Type: BLOOD SPECIMEN Ordering Facility: [facility] Address: [address] [place] [id number] Result Comment: eAG: (Estimated average glucose) is a calculated value from HgbA1c and is patient support representative of the average blood glucose level in the last 2-3 month period. Performed By: #### 2 4321-2, 2776-08, #### [facility] CLIA [id number] [address] STATES OF [facility] HbA1c (Bld) [Mass fraction] 5.5 % Normal 4.3-5.6 [facility] Comment on above: Order Comment: Marlene castañeda Type: BLOOD SPECIMEN Ordering Facility: [facility] Address: [address] [place] [address] Result Comment: Amer ican Diabetes Association guidelines indicate that patients with HgbA1c in the range 5.7-6.4% are at increased risk for development of diabetes, and intervention by lifestyle modification may be beneficial. HgbA1c greater or equal to 6.5% is considered diagnostic of diabetes. Performed By: #### 2 4321-2, 2776-08, #### [facility] CLIA [id number] [address] OF [facility] Lipid 1996 panelon 5 Cholesterol [Mass/Vol] 141 mg/dL Normal <200 [facility] Comment on above: Order Comment: Marlene castañeda Type: BLOOD SPECIMEN Ordering Facility: [facility] Address: [address] [place] [address] Result Comment: <200 mg/dL, Desirable 200-239 mg/dL, Borderline high >239 mg/dL, High Performed By: #### 2 4331-1, 38223-8, , 2776-08 #### [facility] CLIA [id number] [address] STATES OF [place] Cholesterol in HDL [Mass/Vol] 60 mg/dL Normal >39 [facility] Comment on above: Order Comment: Marlene castañeda Type: BLOOD SPECIMEN Ordering Facility: [facility] Address: [address] [place] [address] Result Comment: 40-5 9 mg/dL, Acceptable >59 mg/dL, High: Negative risk factor for coronary heart disease <40 mg/dL, Low: Positive risk factor for coronary heart disease Performed By: #### 2 4331-1, 15743-3, , 2776-08 #### [facility] CLIA [id number] [address] Cholesterol in LDL [Mass/Vol] 64 mg/dL Normal <100 [facility] Comment on above: Order Comment: Marlene maddy Type: BLOOD SPECIMEN Ordering Facility: [facility] Address: [address] [place] [address] Result Comment: <100 mg/dL, Optimal 100-129 mg/dL, Near optimal/above optimal 130-159 mg/dL, Borderline high 160-189 mg/dL, High >189 mg/dL, Very high Secondary prevention optimal LDL Cholesterol levels are recommended to be <70 mg/dL LDL cholesterol is calculated using the Castro-NIH equation. Performed By: #### 2 4331-1, 35760-1, , 2776-08 #### [facility] CLIA [id number] [address] Cholesterol in LDL/Cholesterol in HDL [Mass ratio] 1.07 {ratio} Normal <2.54 [facility] Comment on above: Order Comment: Marlene maddy Type: BLOOD SPECIMEN Ordering Facility: [facility] Address: [address] [place] [address] Result Comment: Refe rence: 1. National Cholesterol Education Program ATP III Guideline At-A-Glance Quick Desk Reference: National Heart, Lung, and Blood Baxter. National Institutes of Health. 2001: NIH Publication No. 01-3305. 2. An International Atherosclerosis Society position paper: global recommendations for the management of dyslipidemia: executive summary, Atherosclerosis. 2014: 232(2):410-413. Performed By: #### 2 4331-1, 27069-8, , 2776-08 #### [facility] CLIA [id number] [address] OF [facility] Cholesterol in VLDL [Mass/Vol] 13 mg/dL Normal <30 [facility] Comment on above: Order Comment: Marlene castañeda Type: BLOOD SPECIMEN Ordering Facility: [facility] Address: [facility] [place] [address] Performed By: #### 2 4331-1, 18130-6, , 2776-08 #### [facility] CLIA [id number] [address] OF [place] Cholesterol non HDL [Mass/Vol] 81 mg/dL Normal <130 [facility] Comment on above: Order Comment: Speci men Type: BLOOD SPECIMEN Ordering Facility: [facility] Address: [address] [place] [address] Result Comment: <130 mg/dL, Optimal 130-159 mg/dL, Near optimal/above optimal 160-189 mg/dL, Borderline high 190-219 mg/dL, High >219 mg/dL, Very high Secondary prevention optimal non HDL Cholesterol levels are recommended to be <100 mg/dL Performed By: #### 2 4331-1, 16868-1, , 2776-08 #### [facility] CLIA [id number] [address] Cholesterol.total/Choles terol in HDL [Mass ratio] 2.35 {ratio} Normal <5.10 [facility] Comment on above: Order Comment: Speci men Type: BLOOD SPECIMEN Ordering Facility: [facility] Address: [address] [place] [address] Performed By: #### 2 4331-1, 10587-8, , 2776-08 #### [facility] CLIA [id number] [address] STATES OF [facility] FASTING TIME 10 hrs Normal [facility] Comment on above: Order Comment: Speci men Type: BLOOD SPECIMEN Ordering Facility: [facility] Address: [address] [place] [address] Performed By: #### 2 4331-1, 00856-9, , 2776-08 #### [facility] CLIA [id number] [address] OF [place] Triglyceride [Mass/Vol] 88 mg/dL Normal <150 [facility] Comment on above: Order Comment: Speci men Type: BLOOD SPECIMEN Ordering Facility: [facility] Address: [address], [place] [address] Result Comment: <150 mg/dL, Normal 150-199 mg/dL, Borderline high 200-499 mg/dL, High >499 mg/dL, Very high Performed By: #### 2 4331-1, 87813-5, 92660-3, 2777-1 #### [facility] CLIA [id number] 1 [place] [address] [facility] OF [facility] MRA BRAIN WO IVCONon 025 MRA BRAIN WO IVCON * * *Final Report* * * DATE OF EXAM: Dec 19 2024 5:16PM [facility] 0272 - MRA BRAIN WO IVCON / PROCEDURE REASON: Stroke, follow up * * * * Physician Interpretation * * * * EXAMINATION: MRI BRAIN WO IVCON, MRA CAROTID WO IVCON, MRA BRAIN WO IVCON CLINICAL HISTORY: Stroke follow-up TECHNIQUE: Routine noncontrast MRI protocol including diffusion and gradient echo images. Intracranial and extracranial 3D [id number] MRA with post-processing performed at the modality and 2D multiplanar and 3D maximum intensity projections were created, reviewed and archived. MQ: MRBBWO_3 COMPARISON: CT performed 12/18/2024 and MRI performed 05/22/2023 RESULT: BRAIN: Acute Change: There is patchy restricted diffusion in the right MCA territory involving the subinsular region and basal ganglia, as well as the posterior right temporal and occipital lobe, with patchy areas in the frontal and parietal lobe, consistent with acute infarct. Hemorrhage: No evidence of focal parenchymal hematoma. Several punctate foci of susceptibility artifact noted in the right basal ganglia and deep white matter of the left parietal lobe, unchanged. Mass Lesion/ Mass Effect: No evidence of an intracranial mass or extra-axial fluid collection. No significant mass effect. Chronic Change: Scattered patchy and confluent areas of increased T2 and FLAIR signal are present in the supratentorial white matter which is nonspecific but likely represents chronic microvascular ischemia. Chronic lacunar infarct in the left putamen. Parenchyma: Moderate generalized brain parenchymal volume loss with fairly severe volume loss in the mesial temporal lobes bilaterally. The brain parenchyma is otherwise within normal limits of signal intensity and morphology. Ventricles: Ventriculomegaly corresponds to the degree of parenchymal volume loss. Skull Base: Hypothalamic and pituitary region are grossly normal. Craniocervical junction is normal. No significant marrow replacement process. Vasculature: Attenuation of the right MCA flow void. Other: There is mild mucosal thickening in the left maxillary sinus. INTRACRANIAL MRA: The study is somewhat limited by motion artifact. The internal carotid arteries are patent. Again noted is high-grade stenosis or occlusion of the proximal right M1 segment, with attenuated flow in the distal right M1 and M2 branches. The left MCA appears patent, with vessel detail limited more distally due to motion artifact. Both anterior cerebral arteries are patent. Both vertebral arteries and the basilar artery are patent. The proximal posterior cerebral arteries appear patent, with some limited evaluation due to motion. Probable proximal right P2 stenosis and mild to moderate left P2 narrowing. EXTRACRANIAL MRA: Carotid Stenosis: Right Common: No significant stenosis. Right Internal Plaque: No significant plaque formation. Right Internal Carotid Stenosis (% by NASCET Criteria): 0 Left Common: No significant stenosis. Left Internal Carotid Plaque: No significant plaque formation. Left Internal Carotid Stenosis (% by NASCET Criteria): 0 Cervical Vertebral Arteries: Patency: Bilateral Dominance: Left IMPRESSION: MRI BRAIN: 1. Patchy areas of restricted diffusion in the right MCA territory consistent with acute infarct. 2. No evidence of intracranial hemorrhage. 3. Chronic microvascular ischemic changes and volume loss, most pronounced in the mesial temporal region. MRA BRAIN: 1. High-grade stenosis or occlusion of the proximal right M1 segment, with attenuated flow in the distal right M1 and M2 branches. This appears similar to the CTA performed 12/18/2024. 2. Probable proximal right P2 stenosis and mild to moderate left P2 narrowing. MRA NECK: No evidence of carotid or vertebral artery stenosis. Nut Tapper: FORTINO Transcribe Date/Time: Dec 19 2024 5:31P Dictated by : LAURYN JONES MD This examination was interpreted and the report reviewed and electronically signed by: LAURYN JONES MD on Dec 19 2024 5:45PM EST [id number] N Normal [facility] MRA CAROTID WO IVCONon 12-19 MRA CAROTID WO IVCON * * *Final Report* * * DATE OF EXAM: Dec 19 2024 5:16PM [facility] 0275 - MRA CAROTID WO IVCON / PROCEDURE REASON: Stroke, follow up * * * * Physician Interpretation * * * * EXAMINATION: MRI BRAIN WO IVCON, MRA CAROTID WO IVCON, MRA BRAIN WO IVCON CLINICAL HISTORY: Stroke follow-up TECHNIQUE: Routine noncontrast MRI protocol including diffusion and gradient echo images. Intracranial and extracranial 3D [id number]-dk-hbbsye MRA with post-processing performed at the modality and 2D multiplanar and 3D maximum intensity projections were created, reviewed and archived. MQ: MRBBWO_3 COMPARISON: CT performed 12/18/2024 and MRI performed 05/22/2023 RESULT: BRAIN: Acute Change: There is patchy restricted diffusion in the right MCA territory involving the subinsular region and basal ganglia, as well as the posterior right temporal and occipital lobe, with patchy areas in the frontal and parietal lobe, consistent with acute infarct. Hemorrhage: No evidence of focal parenchymal hematoma. Several punctate foci of susceptibility artifact noted in the right basal ganglia and deep white matter of the left parietal lobe, unchanged. Mass Lesion/ Mass Effect: No evidence of an intracranial mass or extra-axial fluid collection. No significant mass effect. Chronic Change: Scattered patchy and confluent areas of increased T2 and FLAIR signal are present in the supratentorial white matter which is nonspecific but likely represents chronic microvascular ischemia. Chronic lacunar infarct in the left putamen. Parenchyma: Moderate generalized brain parenchymal volume loss with fairly severe volume loss in the mesial temporal lobes bilaterally. The brain parenchyma is otherwise within normal limits of signal intensity and morphology. Ventricles: Ventriculomegaly corresponds to the degree of parenchymal volume loss. Skull Base: Hypothalamic and pituitary region are grossly normal. Craniocervical junction is normal. No significant marrow replacement process. Vasculature: Attenuation of the right MCA flow void. Other: There is mild mucosal thickening in the left maxillary sinus. INTRACRANIAL MRA: The study is somewhat limited by motion artifact. The internal carotid arteries are patent. Again noted is high-grade stenosis or occlusion of the proximal right M1 segment, with attenuated flow in the distal right M1 and M2 branches. The left MCA appears patent, with vessel detail limited more distally due to motion artifact. Both anterior cerebral arteries are patent. Both vertebral arteries and the basilar artery are patent. The proximal posterior cerebral arteries appear patent, with some limited evaluation due to motion. Probable proximal right P2 stenosis and mild to moderate left P2 narrowing. EXTRACRANIAL MRA: Carotid Stenosis: Right Common: No significant stenosis. Right Internal Plaque: No significant plaque formation. Right Internal Carotid Stenosis (% by NASCET Criteria): 0 Left Common: No significant stenosis. Left Internal Carotid Plaque: No significant plaque formation. Left Internal Carotid Stenosis (% by NASCET Criteria): 0 Cervical Vertebral Arteries: Patency: Bilateral Dominance: Left IMPRESSION: MRI BRAIN: 1. Patchy areas of restricted diffusion in the right MCA territory consistent with acute infarct. 2. No evidence of intracranial hemorrhage. 3. Chronic microvascular ischemic changes and volume loss, most pronounced in the mesial temporal region. MRA BRAIN: 1. High-grade stenosis or occlusion of the proximal right M1 segment, with attenuated flow in the distal right M1 and M2 branches. This appears similar to the CTA performed 12/18/2024. 2. Probable proximal right P2 stenosis and mild to moderate left P2 narrowing. MRA NECK: No evidence of carotid or vertebral artery stenosis. Nut Tapper: FORTINO Transcribe Date/Time: Dec 19 2024 5:31P Dictated by : LAURYN JONES MD This examination was interpreted and the report reviewed and electronically signed by: LAURYN JONES MD on Dec 19 2024 5:45PM EST [id number] Normal [facility] MRI BRAIN WO IVCONon 025 MRI BRAIN WO IVCON * * *Final Report* * * DATE OF EXAM: Dec 19 2024 5:16PM [facility] 0294 - MRI BRAIN WO IVCON / PROCEDURE REASON: Stroke, follow up * * * * Physician Interpretation * * * * EXAMINATION: MRI BRAIN WO IVCON, MRA CAROTID WO IVCON, MRA BRAIN WO IVCON CLINICAL HISTORY: Stroke follow-up TECHNIQUE: Routine noncontrast MRI protocol including diffusion and gradient echo images. Intracranial and extracranial 3D cilp-ks-fdpjyy MRA with post-processing performed at the modality and 2D multiplanar and 3D maximum intensity projections were created, reviewed and archived. MQ: MRBBWO_3 COMPARISON: CT performed 12/18/2024 and MRI performed 05/22/2023 RESULT: BRAIN: Acute Change: There is patchy restricted diffusion in the right MCA territory involving the subinsular region and basal ganglia, as well as the posterior right temporal and occipital lobe, with patchy areas in the frontal and parietal lobe, consistent with acute infarct. Hemorrhage: No evidence of focal parenchymal hematoma. Several punctate foci of susceptibility artifact noted in the right basal ganglia and deep white matter of the left parietal lobe, unchanged. Mass Lesion/ Mass Effect: No evidence of an intracranial mass or extra-axial fluid collection. No significant mass effect. Chronic Change: Scattered patchy and confluent areas of increased T2 and FLAIR signal are present in the supratentorial white matter which is nonspecific but likely represents chronic microvascular ischemia. Chronic lacunar infarct in the left putamen. Parenchyma: Moderate generalized brain parenchymal volume loss with fairly severe volume loss in the mesial temporal lobes bilaterally. The brain parenchyma is otherwise within normal limits of signal intensity and morphology. Ventricles: Ventriculomegaly corresponds to the degree of parenchymal volume loss. Skull Base: Hypothalamic and pituitary region are grossly normal. Craniocervical junction is normal. No significant marrow replacement process. Vasculature: Attenuation of the right MCA flow void. Other: There is mild mucosal thickening in the left maxillary sinus. INTRACRANIAL MRA: The study is somewhat limited by motion artifact. The internal carotid arteries are patent. Again noted is high-grade stenosis or occlusion of the proximal right M1 segment, with attenuated flow in the distal right M1 and M2 branches. The left MCA appears patent, with vessel detail limited more distally due to motion artifact. Both anterior cerebral arteries are patent. Both vertebral arteries and the basilar artery are patent. The proximal posterior cerebral arteries appear patent, with some limited evaluation due to motion. Probable proximal right P2 stenosis and mild to moderate left P2 narrowing. EXTRACRANIAL MRA: Carotid Stenosis: Right Common: No significant stenosis. Right Internal Plaque: No significant plaque formation. Right Internal Carotid Stenosis (% by NASCET Criteria): 0 Left Common: No significant stenosis. Left Internal Carotid Plaque: No significant plaque formation. Left Internal Carotid Stenosis (% by NASCET Criteria): 0 Cervical Vertebral Arteries: Patency: Bilateral Dominance: Left IMPRESSION: MRI BRAIN: 1. Patchy areas of restricted diffusion in the right MCA territory consistent with acute infarct. 2. No evidence of intracranial hemorrhage. 3. Chronic microvascular ischemic changes and volume loss, most pronounced in the mesial temporal region. MRA BRAIN: 1. High-grade stenosis or occlusion of the proximal right M1 segment, with attenuated flow in the distal right M1 and M2 branches. This appears similar to the CTA performed 12/18/2024. 2. Probable proximal right P2 stenosis and mild to moderate left P2 narrowing. MRA NECK: No evidence of carotid or vertebral artery stenosis. Nut Tapper: FORTINO Transcribe Date/Time: Dec 19 2024 5:31P Dictated by : LAURYN JONES MD This examination was interpreted and the report reviewed and electronically signed by: LAURYN JONES MD on Dec 19 2024 5:45PM EST [id number] N Normal [facility] Magnesium SerPl-mCncon 12-19 Magnesium [Mass/Vol] 1.8 mg/dL Normal 1.7-2.3 [facility] Comment on above: Order Comment: Speci men Type: BLOOD SPECIMEN Ordering Facility: [facility] Address: [address] [place] [address] Performed By: #### 2 4331-1, 25827-7, 21939-4, 2776- #### [facility] CLIA [id number] [address] OF [facility] Phosphate SerPl-mCncon 12-19 Phosphate [Mass/Vol] 2.7 mg/dL Normal 2.7-4.8 [facility] Comment on above: Order Comment: Speci men Type: BLOOD SPECIMEN Ordering Facility: [facility] Address: [address] [place] [address] Performed By: #### 2 4331-1, 27453-5, , 2776-08 #### [facility] CLIA [id number] [address] [place] STAPHYLOCOCCUS AUREUS AND MR SA SCREEN, PCR, NASALon 12-19-2024 S. aureus and MRSA panel EMILIANA+probe (Nose) Not detected Normal Not Detected [facility] Comment on above: Order Comment: Speci men Type: SWABOrdering Facility: [facility] Address: [address] [place] [address] Performed By: #### S APCR ####[facility] [id number] [place] [address] [place] US DVT LOWER BILon US DVT LOWER NAIMA * * *Final Report* * * DATE OF EXAM: Dec 19 2024 6:26PM [facility] 100 - DVT LOWER NAIMA / PROCEDURE REASON: Leg deep vein thrombosis (DVT), new symptoms * * * * Physician Interpretation * * * * EXAMINATION: RIGHT AND LEFT LOWER EXTREMITY DEEP VENOUS ULTRASOUND WITH DOPPLER IMAGING CLINICAL HISTORY: Immobilization / High risk for DVT TECHNIQUE: Grayscale with compression maneuvers, color Doppler and spectral Doppler imaging of the right and left proximal deep veins was performed. Grayscale with compression maneuvers of the right and left peroneal and posterior tibial veins was performed. The right and left great and small saphenous veins were evaluated at their insertion to the deep system. Images were obtained and stored in a permanent archive. MQ: USLEB_1 COMPARISON: None RESULT: RIGHT LOWER EXTREMITY PROXIMAL DEEP VEINS Distal External Iliac, Common Femoral and Proximal Profunda Veins: Compression: Normal Doppler: Normal, spontaneous respirophasic flow. Normal response to augmentation. Femoral vein: Compression: Normal Doppler: Normal, spontaneous respirophasic flow. Normal response to augmentation. Popliteal vein: Compression: Normal Doppler: Normal, spontaneous respirophasic flow. Normal response to augmentation. CALF DEEP VEINS Peroneal veins: Normal compression. Posterior tibial veins: Normal compression. Gastrocnemius and Soleal veins: Not imaged. SUPERFICIAL VEINS Great saphenous: Patent and compressible at insertion into common femoral vein; not otherwise assessed. Small Saphenous: Patent and compressible in the proximal calf, not otherwise assessed. LEFT LOWER EXTREMITY PROXIMAL DEEP VEINS Distal External Iliac, Common Femoral and Proximal Profunda Veins: Compression: Normal Doppler: Normal, spontaneous respirophasic flow. Normal response to augmentation. Femoral vein: Compression: Normal Doppler: Normal, spontaneous respirophasic flow. Normal response to augmentation. Popliteal vein: Compression: Normal Doppler: Normal, spontaneous respirophasic flow. Normal response to augmentation. CALF DEEP VEINS Peroneal veins: Normal compression. Posterior tibial veins: Normal compression. Gastrocnemius and Soleal veins: Not imaged. SUPERFICIAL VEINS Great saphenous: Patent and compressible at insertion into common femoral vein; not otherwise assessed. Small Saphenous: Patent and compressible in the proximal calf, not otherwise assessed. IMPRESSION: Negative study for proximal DVT in the left and right lower extremities. Negative study for calf DVT in the left and right lower extremities. Negative study for superficial thrombophlebitis in the imaged segments of the left and right lower extremities. Nut Tapper: FORTINO Transcribe Date/Time: Dec 21 2024 8:47A Dictated by : MILLIE ULLOA MD This examination was interpreted and the report reviewed and electronically signed by: MILLIE ULLOA MD on Dec 21 2024 8:49AM EST [id number] N Normal [facility] Urinalysis complete panel (U )on 12-19-2024 Bilirubin Ql (U) Negative Normal Negative [facility] Comment on above: Order Comment: Speci men Type: BLOOD SPECIMEN Ordering Facility: [facility] Address: [address] [place] [address] Performed By: #### 2 4321-2, 2776-08, #### [facility] CLIA [id number] [address] Clarity (Unsp spec) Clear Normal Clear [facility] Comment on above: Order Comment: Speci men Type: BLOOD SPECIMEN Ordering Facility: [facility] Address: [address] [place] [address] Performed By: #### 2 4321-2, 2776-08, #### [facility] CLIA [id number] [address] [place] Color (U) Light Yellow Normal yellow [facility] Comment on above: Order Comment: Speci men Type: BLOOD SPECIMEN Ordering Facility: [facility] Address: [address] [place] [address] Performed By: #### 2 4321-2, 2776-08, #### [facility] CLIA [id number] [address] [place] Glucose Test strip (U) [Mass/Vol] Negative Normal Trace, Negative [facility] Comment on above: Order Comment: Speci men Type: BLOOD SPECIMEN Ordering Facility: [facility] Address: [address] [place] [address] Performed By: #### 2 4321-2, 2776-08, #### [facility] CLIA [id number] [address] [place] Hemoglobin Ql (U) 1+ Abnormal Negative, Trace [facility] Comment on above: Order Comment: Speci men Type: BLOOD SPECIMEN Ordering Facility: [facility] Address: [address] [place] [address] Performed By: #### 2 4321-2, 2776-08, #### [facility] CLIA [id number] [address] Ketones Ql (U) Negative Normal Negative, Trace [facility] Comment on above: Order Comment: Speci men Type: BLOOD SPECIMEN Ordering Facility: [facility] Address: [address] [place] [address] Performed By: #### 2 4321-2, 2776-08, #### [facility] CLIA [id number] [address] Leukocyte esterase Test strip Ql (U) 250 Espinoza/uL Abnormal Negative, 25 Espinoza/uL [facility] Comment on above: Order Comment: Speci men Type: BLOOD SPECIMEN Ordering Facility: [facility] Address: [address] [place] [address] Performed By: #### 2 1-2, 2776-08, #### [facility] CLIA [id number] [address] STATES OF [facility] Nitrite Ql (U) Negative Normal Negative [facility] Comment on above: Order Comment: Speci men Type: BLOOD SPECIMEN Ordering Facility: [facility] Address: [address] [place] [address] Performed By: #### 2 4321-2, 2776-08, #### [facility] CLIA [id number] [address] [place] pH (U) 6.0 [pH] Normal 5.0-8.0 [facility] Comment on above: Order Comment: Speci men Type: BLOOD SPECIMEN Ordering Facility: [facility] Address: [address] [place] [address] Performed By: #### 2 4321-2, 2776-08, #### [facility] CLIA [id number] [address] [place] Protein (U) [Mass/Vol] Trace Normal Trace , Negative [facility] Comment on above: Order Comment: Speci men Type: BLOOD SPECIMEN Ordering Facility: [facility] Address: [address] [place] [address] Performed By: #### 2 4321-2, 2776-, #### [facility] CLIA [id number] [address] RBC LM.HPF (Urine sed) [#/Area] /[HPF] Abnormal 0-3 /HPF [facility] Comment on above: Order Comment: Speci men Type: BLOOD SPECIMEN Ordering Facility: [facility] Address: [address] [place] [address] Performed By: #### 2 4321-2, 2776-08, #### [facility] CLIA [id number] [address] [place] [address] Specific gravity (U) [Rel density] 1.026 Normal 1.005-1.030 [facility] Comment on above: Order Comment: Speci men Type: BLOOD SPECIMEN Ordering Facility: [facility] Address: [address] [place] [address] Performed By: #### 2 4321-2, 2776-08, #### [facility] CLIA [id number] [address] Urobilinogen Ql (U) Normal Normal Normal [facility] Comment on above: Order Comment: Speci men Type: BLOOD SPECIMEN Ordering Facility: [facility] Address: [address] [place] [address] Performed By: #### 2 4321-2, 2776-08, #### [facility] CLIA [id number] [address] [place] WBC LM.HPF (Urine sed) [#/Area] 0-5 /HPF Normal 0-5 /HPF [facility] Comment on above: Order Comment: Speci men Type: BLOOD SPECIMEN Ordering Facility: [facility] Address: [facility] [place] [address] Performed By: #### 2 4321-2, 2777-1, 24314-7 #### [facility] CLIA [id number] [address] [place] [facility] 12 Lead EKGon 12-18-2024 12 Lead EKG [facility] Cardiovascular Services [address] [place] [address] 12 Lead EKG 12/18/241946 MR#: [id number] Acct: [id number] Name: WILLEM EVANS Rep #: [id number] : 1945 79 From: Howie Ordoñez MD Attending Dr: Status: DEP ER Ordering Dr: Lopez Alejandra DO Date: 12/18/24 Location: ED Sex: F C Admitted: Test Reason : STROKE Blood Pressure : */* mmHG Vent. Rate : 77 BPM Atrial Rate : 77 BPM P-R Int : 164 ms QRS Dur : 88 ms QT Int : 436 ms P-R-T Axes : 57 47 82 degrees QTcB Int : 493 ms Sinus rhythm with occasional Premature ventricular complexes Nonspecific ST and T wave abnormality Prolonged QT Abnormal ECG Confirmed by Howie Ordoñez ([id number]), technical writer and editor GUILLERMINA MELÉNDEZ ([id number]) on 12/20/2024 9:14:39 AM Referred By: TL Confirmed By: Howie Ordoñez 12/20/24 0914 Date Howie Ordoñez MD CC: Dr. Citlaly العراقي MD; Dr. Lopez Alejandra DO Signed Normal [facility] Absolute lymphocyte countOrd ered By: Lopez Alejandra on 12-18-2024 Lymphocytes Auto (Unsp spec) [#/Vol] 1.77 10*3/uL 0.83-4.51 [facility] Absolute neutrophil countOrd ered By: Lopez Alejandra on 12-18-2024 Neutrophils (Bld) [#/Vol] 5.0 10*3/uL 2.0-7.7 [facility] Activated partial thrombopla stin time (aPTT) in platelet poor plasma by coagulation aOrdered By: Lopez Alejandra on 12-18-2024 aPTT Coag (PPP) [Time] 27.1 s 24.1-36.2 [facility] Anion gap in Serum or Plasma Ordered By: Lopez Alejandra on 12-18-2024 Anion gap [Moles/Vol] 12 mmol/L 5-15 [facility] Automated lymphocyte count a s percentage of total leukocytesOrdered By: Lopez Alejandra on 12-18-2024 Lymphocytes/100 WBC Auto (Unsp spec) 22.9 % - [facility] BUN/creatinine ratioOrdered By: Lopez Alejandra on 12-18-2024 Urea nitrogen/Creatinine [Mass ratio] 21.0 mg/mg High 05-30 [facility] Basic Metabolic Profile (BMP )on 12-18-2024 BUN/CRE 21.0 RATIO High 05-30 [facility] Comment on above: Performed By: #### L 300.4310, L300.3900, L501.4021, L500.2500, L100.0100 #### [facility] [address] [place], [address] Calcium [Mass/Vol] 9.1 mg/dL Normal 7.6-11.0 [facility] Comment on above: Performed By: #### L 300.4310, L300.3900, L501.4021, L500.2500, L100.0100 #### [facility] [address] [place], [address] Chloride [Moles/Vol] 107 mmol/L Normal 98-108 [facility] Comment on above: Performed By: #### L 300.4310, L300.3900, L501.4021, L500.2500, L100.0100 #### [facility] [address] [place], [address] CO2 [Moles/Vol] 23.5 mmol/L Normal 21.0-32.0 [facility] Comment on above: Performed By: #### L 300.4310, L300.3900, L501.4021, L500.2500, L100.0100 #### [facility] [address] [place], [address] Creatinine [Mass/Vol] 0.92 mg/dL Normal 0.70-1.20 [facility] Comment on above: Performed By: #### L 300.4310, L300.3900, L501.4021, L500.2500, L100.0100 #### [facility] [address] [place], [address] ECRCL 10.65 ml/min Low 50-250 [facility] Comment on above: Performed By: #### L 300.4310, L300.3900, L501.4021, L500.2500, L100.0100 #### [facility] [address] [place], [place], [facility] GAP 12 Normal 5-15 [facility] Comment on above: Performed By: #### L 300.4310, L300.3900, L501.4021, L500.2500, L100.0100 #### [facility] [address] [place], [address] GFR/1.73 sq M.predicted among non-blacks MDRD (S/P/Bld) [Vol rate/Area] 63 mL/min/{1.73_m2} Normal >60 [facility] Comment on above: Result Comment: mL/m in/1.73m2 CKD-EPI Creatinine Equation (2020) Performed By: #### L 300.4310, L300.3900, L501.4021, L500.2500, L100.0100 #### [facility] [address] [place], [address] Glucose [Mass/Vol] 147 mg/dL High 70-99 [facility] Comment on above: Performed By: #### L 300.4310, L300.3900, L501.4021, L500.2500, L100.0100 #### [facility] [address] [place], [address] Potassium [Moles/Vol] 3.6 mmol/L Normal 3.3-5.1 [facility] Comment on above: Performed By: #### L 300.4310, L300.3900, L501.4021, L500.2500, L100.0100 #### [facility] [address] [place], [address] Sodium [Moles/Vol] 142 mmol/L Normal 133-145 [facility] Comment on above: Performed By: #### L 300.4310, L300.3900, L501.4021, L500.2500, L100.0100 #### [facility] [address] [place], [address] Urea nitrogen [Mass/Vol] 19 mg/dL Normal 4-19 [facility] Comment on above: Performed By: #### L 300.4310, L300.3900, L501.4021, L500.2500, L100.0100 #### [facility] [address] [place], [address] Basophil percentageOrdered B y: Lopez Alejandra on 12-18-2024 Basophils/100 WBC (Bld) 0.4 % 0-1 [facility] Brain/Head without Contrasto n 12-18-2024 Brain/Head without Contrast [facility] Imaging Services [address] [place] [address] Brain/Head without Contrast MR#: [id number] Acct: [id number] Name: WILLEM EVANS Rep #: [id number] : 1945 F 79 From: Jerry bolton MD PCP: Dr. Citlaly العراقي MD Status: REG ER Study: Brain/Head without Contrast Date of Exam: 12/09 Exam# [id number] Ordering Dr: Lopez Alejandra DO PROCEDURE: BRAIN/HEAD WITHOUT CONTRAST 12/18/2024 REASON FOR EXAM: LEFT SIDE WEAKNESS TECHNIQUE: Head CT without intravenous contrast. Coronal and Sagittal reconstruction series were provided. One or more dose reduction techniques were used (e.g., Automated exposure control, adjustment of the mA and/or kV according to patient size, use of iterative reconstruction technique. COMPARISON: CT brain 12/18/2024 FINDINGS: No acute intracranial hemorrhage, mass, mass effect, midline shift or pathologic extra-axial fluid collection. Mild parenchymal atrophy with commensurate increase in CSF containing spaces. Patchy white matter hypodensities, patient demographics favor chronic microvascular ischemic changes. Paranasal sinuses and mastoid air cells are clear. The calvarium is grossly intact. CT/Brain/Head without Contrast IMPRESSION: No acute intracranial abnormality. Chronic microvascular ischemia and involutional changes. Reading Location: [facility] CC: Dr. Citlaly العراقي MD; Dr. Lopez Alejandra DO Nut Tapper: Signed Normal [facility] CBC W/Diff, Automatedon 05 Absolute Lymph 1.77 X10 3/uL Normal 0.83-4.51 [facility] Comment on above: Performed By: #### L 300.4310, L300.3900, L501.4021, L500.2500, L100.0100 #### [facility] [address] [place], [address] Absolute Neut 5.0 X10 3/uL Normal 2.0-7.7 [facility] Comment on above: Performed By: #### L 300.4310, L300.3900, L501.4021, L500.2500, L100.0100 #### [facility] [address] [place], [address] Basophils/100 WBC (Bld) 0.4 % Normal 0-1 [facility] Comment on above: Performed By: #### L 300.4310, L300.3900, L501.4021, L500.2500, L100.0100 #### [facility] [address] [place], [address] Eosinophils/100 WBC (Bld) 1.0 % Normal 0-5 [facility] Comment on above: Performed By: #### L 300.4310, L300.3900, L501.4021, L500.2500, L100.0100 #### [facility] [address] [place], [address] Erythrocyte distribution width (RBC) [Ratio] 14.8 % High 11.6-14.6 [facility] Comment on above: Performed By: #### L 300.4310, L300.3900, L501.4021, L500.2500, L100.0100 #### [facility] [address] [place], [address] Hematocrit (Bld) [Volume fraction] 32.6 % Low 37-47 [facility] Comment on above: Performed By: #### L 300.4310, L300.3900, L501.4021, L500.2500, L100.0100 #### [facility] [address] [place], [address] Hemoglobin (Bld) [Mass/Vol] 10.9 g/dL Low 12.0-15.0 [facility] Comment on above: Performed By: #### L 300.4310, L300.3900, L501.4021, L500.2500, L100.0100 #### [facility] [address] [place], [address] IG% 0.400 Normal 0.0-0.9 [facility] Comment on above: Result Comment: IG% - Immature Granulocytes (promyelocytes, myelocytes and metamyelocytes) > 1% indicates that a LEFT SHIFT is Present. Performed By: #### L 300.4310, L300.3900, L501.4021, L500.2500, L100.0100 #### [facility] [address] [place], [address] Lymphocytes/100 WBC (Bld) 22.9 % Normal 19-41 [facility] Comment on above: Performed By: #### L 300.4310, L300.3900, L501.4021, L500.2500, L100.0100 #### [facility] [address] [place], [address] MCH (RBC) [Entitic mass] 29.9 pg Normal 27.0-32.0 [facility] Comment on above: Performed By: #### L 300.4310, L300.3900, L501.4021, L500.2500, L100.0100 #### [facility] [address] [place], [address] MCHC (RBC) [Mass/Vol] 33.4 g/dL Normal 32-36 [facility] Comment on above: Performed By: #### L 300.4310, L300.3900, L501.4021, L500.2500, L100.0100 #### [facility] [address] [place], [address] MCV (RBC) [Entitic vol] 89.3 fL Normal 81-99 [facility] Comment on above: Performed By: #### L 300.4310, L300.3900, L501.4021, L500.2500, L100.0100 #### [facility] [address] [place], [address] Monocytes/100 WBC (Bld) 10.1 % High 0-10 [facility] Comment on above: Performed By: #### L 300.4310, L300.3900, L501.4021, L500.2500, L100.0100 #### [facility] [address] [place], [address] Neutrophils/100 WBC (Bld) 65.2 % Normal 47-70 [facility] Comment on above: Performed By: #### L 300.4310, L300.3900, L501.4021, L500.2500, L100.0100 #### [facility] [address] [place], [address] Nucleated RBC (Bld) [#/Vol] 0 10*3/uL Normal 0-5 [facility] Comment on above: Performed By: #### L 300.4310, L300.3900, L501.4021, L500.2500, L100.0100 #### [facility] [address] [place], [address] Platelet mean volume (Bld) [Entitic vol] 10.3 fL Normal 6.2-12.0 [facility] Comment on above: Performed By: #### L 300.4310, L300.3900, L501.4021, L500.2500, L100.0100 #### [facility] [address] [place], [address] Platelets (Bld) [#/Vol] 381 10*3/uL Normal 150-450 [facility] Comment on above: Performed By: #### L 300.4310, L300.3900, L501.4021, L500.2500, L100.0100 #### [facility] [address] [place], [address] RBC (Bld) [#/Vol] 3.65 10*6/uL Low 4.2-5.4 [facility] Comment on above: Performed By: #### L 300.4310, L300.3900, L501.4021, L500.2500, L100.0100 #### [facility] [address] [place], [address] RDW SD 48.8 fl High 35.1-43.9 [facility] Comment on above: Performed By: #### L 300.4310, L300.3900, L501.4021, L500.2500, L100.0100 #### [facility] [address] [place], [address] WBC (Bld) [#/Vol] 7.7 10*3/uL Normal 4.4-11.0 [facility] Comment on above: Performed By: #### L 300.4310, L300.3900, L501.4021, L500.2500, L100.0100 #### [facility] [address] [place], [address] [facility]ATCSanje[facility] WILLEM EVANS ([id number]) 1945 F Date Time Provider Department 12/18/24 HOWIE LEONARDO During your visit today, we recorded the following information about you: Howie Leonardo APRN.CNP 12/19/2024 1:16 AM Signed Critical Care Transport Note Patient Name: Willem Evans Service Date: 12/18/24 Referring Facility: [facility] ED [place] [facility] [facility] SUBJECTIVE/CHIEF COMPLAINT: Stroke REASON FOR TRANSPORT: LVO requiring interventional neurology services not available at the referring facility History of Present Illness: The following history is what was known to CCT team at time of given care and summarized through: review of available medical records, referring provider report, and referring nursing report Willem Evans is a 79 year old female with a past medical history significant for dementia (baseline to self), OA and anxiety. She presented to [facility] this evening for evaluation of acute neurological deficits. Patient was noted to be LKW @ 1730 prior to taking a nap. Patient was than noted to develop acute onset of L facial droop and L arm weakness. Patient was brought to the ER where he was noted to have L neglect, L sided weakness and facial droop. Initial NIHSS score of 12. Patient was taken for CT of the brain which revealed no acute abnormalities. Brain CTA noted acute LVO of R M1 MCA. At that time it was decided to administer TNK 16mg. Patient's SBP increased to 190s and was treated with labetalol and Cardene IV gtt. At 2200, pt was assessed to have significant improvement in symptoms with NIHSS 1 for continued L facial droop. Shortly after that she again had an NIHSS of 12 with similar symptoms to presentation necessitating a repeat Head CT. At this time, the physician managing the patient requested transfer to [facility] for tertiary and/or quaternary services unavailable at the referring facility. Patient condition at time of exam was: Acutely ill. Due to the unique circumstances of the patient, it was determined that this was the closest, most appropriate facility by referring physician. The physician managing the patient requested the [facility] Critical Care Transport Team transport and treat the patient for the purpose of tertiary care, evaluation, and management of her acute neurological condition(s). Air medical transport was requested to reduce the [id number] time, 20 minutes by air vs. approximately 55 minutes by ground, with the potential for increased ground transport time secondary to: facility or provider reports delayed or no ground transport available, distance between facilities and the patient's condition requiring an emergent procedure or evaluation not available at the referring facility, and distance between facilities and ground round transport time would be excessive and detrimental to patient given current clinical status. ROS: Could not obtain due to patient's mental status/critical illness PAST MEDICAL HISTORY: PAST MEDICAL HISTORY Diagnosis Date Allergic rhinitis, cause unspecified Generalized anxiety disorder with social component Irritable bowel syndrome mainly constipation Osteoporosis, unspecified per prior DEXA times 2 Overweight(278.02) PAST SURGICAL HISTORY: PAST SURGICAL HISTORY Procedure Laterality Date COLONOSCOPY [address] ABEL [facility], NORMAL LIG/TRNSXJ FLP TUBE ABDL/VAG APPR UNI/BI Tubal ligation she was 36 years old ALLERGIES: ALLERGIES No Known Allergies SOCIAL HISTORY: Social History Tobacco Use Smoking status: Never Smokeless tobacco: Never Tobacco comments: Goes by Willem Vaping Use Vaping status: Never Used Substance Use Topics Alcohol use: No Drug use: No FAMILY HISTORY: FAMILY HISTORY Problem Relation Age of Onset Stroke Father at 85, healthy til then Breast Cancer Maternal Aunt roughly 40 Colon Cancer Other none Coronary Artery Disease Other none Diabetes Other none HOME MEDICATIONS: Current Outpatient Medications Medication Instructions acetaminophen (TYLENOL EXTRA STRENGTH) 1,000 mg, ORAL, EVERY 6 HOURS NEEDED busPIRone (BUSPAR) 10 mg, ORAL, 3 TIMES DAILY conjugated estrogens (PREMARIN) vaginal cream 0.5 applicators, VAGINAL, 2 TIMES WEEKLY DAILY MULTIVITAMIN TAB Take one(1) tablet daily. FLUoxetine (PROZAC) 40 mg, ORAL, DAILY FLUoxetine (PROZAC) 20 mg, ORAL, DAILY, Take along with 40 mg pill for a total of 60 mg daily gabapentin (NEURONTIN) 100 mg, ORAL, 3 TIMES DAILY NEEDED loratadine (CLARITIN) 10 mg tablet Take by mouth. losartan (COZAAR) 25 mg, ORAL, DAILY MELATONIN ORAL 6 mg, AT BEDTIME memantine (NAMENDA) 10 mg, ORAL, 2 TIMES DAILY methocarbamol (ROBAXIN) 500 mg, ORAL, 3 TIMES DAILY NEEDED mul (more content not included)... Normal [facility] Carbon dioxide, total [Moles /volume] in Central venous bloodOrdered By: Lopez Alejandra on 12-18-2024 CO2 [Moles/Vol] 23.5 mmol/L 21.0-32.0 [facility] Chloride assayOrdered By: Sterling Alejandra on 12-18-2024 Chloride [Moles/Vol] 107 mmol/L 98-108 [facility] Emergency Department Summary on 12-18-2024 Emergency Department Summary [facility] Medical Records Department [address] [place] [address] Emergency Department Summary 12/18/24 MR#: [id number] Acct: [id number] Name: WILLEM EVANS Rep #: [id number] : 1945 79 From: Lopez Staples PCP: Dr. Citlaly العراقي MD Status:DEP ER Location: ED HPI History of Present Illness Chief Complaint: Stroke Alert Informant: spouse/S.O. and family Narrative Narrative: Brought in by EMS prehospital stroke call. On arrival symptoms noted an hour ago upon awakening by significant other. They states she has not herself noted facial droop and left arm weakness. Reported last normal when they went to take a nap at 5:30 PM 2 hours ago. She does have history of dementia denies stroke history denies any blood thinners. Daughter reports she works in a neurology department stating this is a stroke. There was a noted blood pressure medicine started which was losartan stating 6 months ago. Patient reported daughter stating she is a DNR CCA however would want TNK. Per daughter with dementia baseline to self. Does not know place or time. She does not ambulate any assistance however does shuffle her gait. 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 Depression Inflammatory bowel disease Anxiety Home Medications ???Medication ???Instructions ???Recorded ???Last Taken ???Type fluoxetine 40 mg capsule 60 mg PO DAILY 10/17/21 Unknown Hi story multivitamin 1 tab PO DAILY 10/17/21 Unknown Hi story buspirone 10 mg tablet 10 mg PO TID 02/28/24 Unknown Hist ory melatonin 10 mg capsule 10 mg PO QHS PRN sleep 02/28/24 Un known History memantine 10 mg tablet 10 mg PO BID 02/28/24 Unknown Hist ory polyethylene glycol 3350 17 17 g PO DAILY 03/08/24 Unknown His tory gram/dose oral powder (ClearLax) sennosides 8.6 mg tablet 17.2 mg PO BID 03/08/24 Unknown Hi story (Evac-U-Gen (sennosides)) gabapentin 100 mg capsule 100 mg PO TID PRN PRN for pain 06/04 Unknown History losartan 25 mg tablet 25 mg PO DAILY 12/18/24 Unknown Hi story trazodone 50 mg tablet 50 mg PO QHS 12/18/24 Unknown Hist ory Allergy/AdvReac Type Severity Reaction Status Date / Time No Known Allergies Allergy Verified 12/18/24 19:34 Social History Smoking Status: Never smoker ROS ROS ED Review of Systems ROS Unobtainable: other Details: dementia EXAM Physical Exam Const Vital Signs: 12/18/24 19:41 12/18/24 19:48 12/18/24 20:00 Temperature 98.0 F 97.6 F L Temperature Source Temporal Temporal Pulse Rate 79 71 Respiratory Rate 23 H 18 Blood Pressure 103/85 H 169/72 H Blood Pressure Mean 91 104 Blood Pressure Source Blood Pressure Position Blood Pressure Location Pulse Ox 97 94 Oxygen Delivery Method Room Air Room Air Room Air 12/18/24 20:07 12/18/24 20:08 12/18/24 20:15 Temperature 97.8 F 97.6 F L Temperature Source Oral Temporal Pulse Rate 73 71 Respiratory Rate 19 H 18 Blood Pressure 169/71 H 169/75 H 186/68 H Blood Pressure Mean 106 107 Blood Pressure Source Monitor Blood Pressure Position Supine Blood Pressure Location Left Arm Pulse Ox 95 95 Oxygen Delivery Method Room Air Room Air 12/18/24 20:15 12/18/24 20:30 12/18/24 20:42 Temperature 97.6 F L 98.0 F Temperature Source Temporal Temporal Pulse Rate 71 68 77 Respiratory Rate 18 16 20 H Blood Pressure 186/68 H 177/77 H 103/85 H Blood Pressure Mean 107 110 91 Blood Pressure Source Monitor Monitor Blood Pressure Position Supine Supine Blood Pressure Location Left Arm Left Arm Pulse Ox 95 97 97 Oxygen Delivery Method Room Air Room Air 12/18/24 20:45 12/18/24 21:00 12/18/24 21:00 Temperature 97.3 F L 97.9 F Temperature Source Temporal Temporal Pulse Rate 64 64 Respiratory Rate 16 Blood Pressure 173/66 H 183/93 H 183/93 H Blood Pressure Mean 101 123 123 Blood Pressure Source Monitor Monitor Blood Pressure Position Supine Supine Blood Pressure Location Left Arm Left Arm Pulse Ox 94 96 Oxygen Delivery Method Room Air Room Air 12/18/24 21:15 12/18/24 21:26 12/18/24 21:30 Temperature 98.3 F 97.6 F L Temperature Source Temporal Temporal Pulse Rate 65 66 67 Respiratory Rate 20 H 20 H 16 Blood Pressure 186/75 H 186/75 H 181/69 H Blood Pressure Mean 112 112 106 Blood Pressure Source Monitor Monitor Monitor Blood Pressure Position Supine Supine Supine Blood Pressure Location Left Arm Left Arm Left Arm Pulse Ox 96 98 95 Oxygen Delivery Method Room Air Room Air 12/18/24 21:30 12/18/24 21:45 12/18/24 (more content not included)... Normal [facility] Eosinophil percentageOrdered By: Lopez Alejandra on 12-18-2024 Eosinophils/100 WBC (Bld) 1.0 % 0-5 [facility] Erythrocyte distribution wid th ratioOrdered By: Lopez Alejandra on 12-18-2024 Erythrocyte distribution width (RBC) [Ratio] 14.8 % High 11.6-14.6 [facility] Erythrocyte distribution wid th standard deviationOrdered By: Lopez Alejandra on 12-18-2024 Erythrocyte distribution width (RBC) [Ratio] 48.8 fl High 35.1-43.9 [facility] Glomerular filtration rate ( GFR) estimation/1.73 sq m using serum, plasma, or whole bOrdered By: Lopez Alejandra on 12-18-2024 GFR/1.73 sq M.predicted among non-blacks MDRD (S/P/Bld) [Vol rate/Area] 63 mL/min/{1.73_m2} >60 [facility] Comment on above: mL/min/1.73m2 CKD-EP I Creatinine Equation (2020) Hematocrit Auto (Bld) [Volum e fraction]Ordered By: Lopez Alejandra on 12-18-2024 Hematocrit (Bld) [Volume fraction] 32.6 % Low 37-47 [facility] Hemoglobin measurementOrdere d By: Lopez Alejandra on 12-18-2024 Hemoglobin (Bld) [Mass/Vol] 10.9 g/dL Low 12.0-15.0 [facility] Immature granulocytes/100 WB C Auto (Bld)Ordered By: Lopez Alejandra on 12-18-2024 Immature granulocytes/100 WBC (Bld) 0.400 % 0.0-0.9 [facility] Comment on above: IG% - Immature Granu locytes (promyelocytes, myelocytes and metamyelocytes) > 1% indicates that a LEFT SHIFT is Present. International normalized rat io (INR) calculationOrdered By: Lopez Alejandra on 12-18-2024 INR Coag (Bld) [Relative time] 0.9 {INR} [facility] L499.0042on 12-18-2024 Trop T High Sen Normal <=14 [facility] Comment on above: Result Comment: NO S PECIMEN COLLECTED. PATIENT LIFE FLIGHTED OUT Performed By: #### L 501.4021, L300.3900, L100.0100, L500.2500, L300.4310 #### [facility] [address] [place], [address] L499.0043on 12-18-2024 Trop T High Sen Normal <=14 [facility] Comment on above: Result Comment: Canc elled via OM: Order cancelled - Patient discharged Performed By: #### L 501.4021, L300.3900, L100.0100, L500.2500, L300.4310 #### [facility] [address] [place], [address] L501.4021on 12-18-2024 Trop T High Sen 15 ng/L High <=14 [facility] Comment on above: Performed By: #### L 501.4021, L300.3900, L100.0100, L500.2500, L300.4310 #### [facility] [address] [place], [place], [id number] MCV (mean corpuscular volume ) determinationOrdered By: Lopez Alejandra on 12-18-2024 MCV (RBC) [Entitic vol] 89.3 fL 81-99 [facility] Mean corpuscular hemoglobin (MCH) determinationOrdered By: Lopez Alejandra on 12-18-2024 MCH (RBC) [Entitic mass] 29.9 pg 27.0-32.0 [facility] Mean corpuscular hemoglobin concentration (MCHC) determinationOrdered By: Lopez Alejandra on 12-18-2024 MCHC (RBC) [Mass/Vol] 33.4 g/dL 32-36 [facility] Mean platelet volume determi nationOrdered By: Lopez Alejandra on 12-18-2024 Platelet mean volume (Bld) [Entitic vol] 10.3 fL 6.2-12.0 [facility] Monocyte percentageOrdered B y: Lopez Alejandra on 12-18-2024 Monocytes/100 WBC (Bld) 10.1 % High 0-10 [facility] Neutrophil percentageOrdered By: Lopez Alejandra on 12-18-2024 Neutrophils/100 WBC (Bld) 65.2 % 47-70 [facility] Nucleated red blood cell per centageOrdered By: Lopez Alejandra on 12-18-2024 Nucleated RBC/100 WBC (Bld) [Ratio] 0 % 0-5 [facility] Partial Thromboplast Timeon 12-18-2024 aPTT Coag (Bld) [Time] 27.1 s Normal 24.1-36.2 [facility] Comment on above: Performed By: #### L 300.4310, L300.3900, L501.4021, L500.2500, L100.0100 #### [facility] [address] [place], [address] Platelet countOrdered By: Sterling Alejandra on 12-18-2024 Platelets (Bld) [#/Vol] 381 10*3/uL 150-450 [facility] Potassium measurement (mass/ volume)Ordered By: Lopez Le on 12-18-2024 Potassium (Unsp spec) [Mass/Vol] 3.6 mmol/L 3.3-5.1 [facility] Prothrombin Time w/INRon INR Coag (PPP) [Relative time] 0.9 {INR} Normal [facility] Comment on above: Performed By: #### L 300.4310, L300.3900, L501.4021, L500.2500, L100.0100 #### [facility] [address] [place], [address] PT Coag (PPP) [Time] 12.5 s Normal 11.7-14.9 [facility] Comment on above: Performed By: #### L 300.4310, L300.3900, L501.4021, L500.2500, L100.0100 #### [facility] [address] [place], [address] Prothrombin timeOrdered By: Lopez Alejandra on 12-18-2024 PT Coag (PPP) [Time] 12.5 s 11.7-14.9 [facility] RBC Auto (Bld) [#/Vol]Ordere d By: Lopez Alejandra on 12-18-2024 RBC (Bld) [#/Vol] 3.65 10*6/uL Low 4.2-5.4 [facility]Head without Co nton 12-18-2024 STROKE Brain/Head without Cont [facility] Services [address] [place] [address] STROKE Brain/Head without Cont MR#: [id number] Acct: [id number] Name: WILLEM EVANS Rep #: [id number] : 1945 F 79 From: Jerry bolton MD PCP: Dr. Citlaly العراقي MD Status: REG ER Study: STROKE Brain/Head without Cont Date of Exam: 0 12/18/24 Exam# [id number] Ordering Dr: Lopez Alejandra DO PROCEDURE: STROKE BRAIN/HEAD WITHOUT CONT 12/18/2024 REASON FOR EXAM: NEURO DEFICIT, ACUTE, STROKE SUSPECTED TECHNIQUE: Head CT without intravenous contrast. Coronal and Sagittal reconstruction series were provided. One or more dose reduction techniques were used (e.g., Automated exposure control, adjustment of the mA and/or kV according to patient size, use of iterative reconstruction technique. COMPARISON: None FINDINGS: No acute intracranial hemorrhage, mass, mass effect, midline shift or pathologic extra-axial fluid collection. Mild parenchymal atrophy with commensurate increase in CSF containing spaces. Patchy white matter hypodensities, patient demographics favor chronic microvascular ischemic changes. Paranasal sinuses and mastoid air cells are clear. The calvarium is grossly intact. CT/STROKE Brain/Head without Cont IMPRESSION: No acute intracranial abnormality; no acute infarct, intracranial hemorrhage or extra-axial collection. Chronic microvascular ischemia and involutional changes. Reading Location: [facility] CC: Dr. Citlaly العراقي MD; Dr. Lopez Alejandra DO Nut Tapper: Signed Normal [facility] STROKE CTA Head AND Neck W/C onon 12-18-2024 STROKE CTA Head AND Neck W/Con [facility] Imaging Services [address] [place] [id number] STROKE CTA Head AND Neck W/Con MR#: [id number] Acct: [id number] Name: WILLEM EVANS Rep #: [id number] : 1945 F 79 From: Jerry bolton MD PCP: Dr. Citlaly العراقي MD Status: REG ER Study: STROKE CTA Head AND Neck W/Con Date of Exam: 0 12/18/24 Exam# [id number] Ordering Dr: Lopez Alejandra DO PROCEDURE: STROKE CTA HEAD AND NECK W/CON 12/18/2024 REASON FOR EXAM: NEURO DEFICIT, ACUTE, STROKE SUSPECTED TECHNIQUE: CTA imaging of the head and neck from the aortic arch to the skull vertex with out contrast and with intravenous contrast. Multiplanar and multisequence images were obtained. CONTRAST: Omnipaque 350 VOLUME: 100 mL Not Provided Gauge IV One or more dose reduction techniques were used (e.g., Automated exposure control, adjustment of the mA and/or kV according to patient size, use of iterative reconstruction technique). COMPARISON: None FINDINGS: Aortic Arch: Three-vessel arch branch anatomy. Atherosclerotic calcification without hemodynamically significant stenosis Brachiocephalic and Subclavians: Mild atherosclerotic plaque without significant stenosis. RIGHT Carotid: Right CCA: Mild calcified and soft plaque. Right ICA: Mild calcified and soft plaque. Maximum stenosis (NASCET): 10 % Right ECA: Unremarkable. LEFT Carotid: Left CCA: Unremarkable. Left ICA: Unremarkable. Maximum stenosis (NASCET): 0 % Left ECA: Unremarkable. Vertebrals: Codominant. Arise from the subclavians. Both vertebrals form the basilar. RIGHT Vertebral: Unremarkable. LEFT Vertebral: Unremarkable. Anatomy: [place] of [place] anatomy is normal. Aneurysm or avm: No intracranial aneurysms or large vascular malformations are identified. Anterior cerebral arteries: Unremarkable: Middle cerebral arteries: There is abrupt cutoff of the right M1 MCA branch (series 2 image 299), with a short-segment occlusion. There is reconstitution of the distal right M1, with mild-moderate stenosis, likely secondary to noncalcified plaque. Remainder of the M2 and M3 branches appear within normal limits although slightly attenuated in caliber. The left MCA demonstrates normal caliber and perfusion. Basilar artery: Unremarkable. Posterior cerebral arteries: Unremarkable. Other major branches of the posterior circulation: Unremarkable. Major venous structures: Unremarkable. Other findings: Neck: No lymphadenopathy. Lungs: Lung apices are clear. Bones: Degenerative changes of the cervical spine. 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 Scattered atherosclerotic calcification otherwise, without hemodynamically significant stenosis. Red Alert: Findings communicated with on 12/18/2024 at 9 p.m. Reading [facility] CC: Dr. Citlaly العراقي MD; Dr. Lopez Alejandra, Nut Tapper: Signed Normal [facility] Serum creatinine measurement (mass/volume)Ordered By: Lopez Alejandra on 12-18-2024 Creatinine [Mass/Vol] 0.92 mg/dL 0.70-1.20 [facility] Serum glucose measurement (m ass/volume)Ordered By: Lopez Alejandra on 12-18-2024 Glucose [Mass/Vol] 147 mg/dL High 70-99 [facility] Serum or plasma calcium maycol urement (mass/volume)Ordered By: Lopez Alejandra on 12-18-2024 Calcium [Mass/Vol] 9.1 mg/dL 7.6-11.0 [facility] Serum or plasma urea nitroge n measurement (mass/volume)Ordered By: Lopez Alejandra on 12-18-2024 Urea nitrogen [Mass/Vol] 19 mg/dL 4-19 [facility] Sodium levelOrdered By: Lopez Alejandra on 12-18-2024 Sodium [Moles/Vol] 142 mmol/L 133-145 [facility] Troponin T.cardiac [Mass/vol ume] in Serum or Plasma by High sensitivity methodOrdered By: Lopez Alejandra on 12-18-2024 Troponin T.cardiac High sensitivity method [Mass/Vol] 15 ng/L High <14 [facility] White blood cell (WBC) count Ordered By: Lopez Alejandra on 12-18-2024 WBC (Bld) [#/Vol] 7.7 10*3/uL 4.4-11.0 [facility] CNOVon 10-25-2024 CNOV Office Visit (OBGYWM ) WILLEM EVANS ([id number]) 1945 F Date Time Provider Department 10/25/24 3:20 PM HERMAN PALUMBO OBGYWM During your visit today, we recorded the following information about you: Blood pressure Weight 158/90 62.6 kg Herman Palumbo MD 10/25/2024 3:56 PM Signed Acid Wash Operator offered: Patient declines. Willem Evans is a 79 year old female who presents for pessary maintenance. Patient is suffering from memory loss. Patient's states that patient did fall multiple times and with one of her falls the pessary fell out. Patient since that time has not had any issues with urinating. Patient reports has not had any pelvic pressure or any issues with prolapse. patient offers no other complaints at this time. OB History No obstetric history on file. [place] History LMP: Postmenopausal Age at Menarche: Age at First : Age at Menopause: [place] Roofer History Comments: Sexual Activity: Yes; Male; 1983, monogamous since; no history of STDs Contraception: No contraception data on record PAST MEDICAL HISTORY Diagnosis Date Allergic rhinitis, cause unspecified Generalized anxiety disorder with social component Irritable bowel syndrome mainly constipation Osteoporosis, unspecified per prior DEXA times 2 Overweight(278.02) PAST SURGICAL HISTORY Procedure Laterality Date COLONOSCOPY [address] [facility], NORMAL LIG/TRNSXJ FLP TUBE ABDL/VAG APPR UNI/BI Tubal ligation she was 36 years old FAMILY HISTORY Problem Relation Age of Onset Stroke Father at 85, healthy til then Breast Cancer Maternal Aunt roughly 40 Colon Cancer Other none Coronary Artery Disease Other none Diabetes Other none Social History Tobacco Use Smoking status: Never Smokeless tobacco: Never Tobacco comments: Goes by Willem Vaping Use Vaping status: Never Used Substance Use Topics Alcohol use: No Drug use: No Current Outpatient Medications Medication Sig traZODone (DESYREL) 50 mg tablet Take 1 tablet by mouth daily at bedtime. methocarbamol (ROBAXIN) 500 mg tablet Take 1 tablet by mouth three times a day as needed. gabapentin (NEURONTIN) 100 mg capsule Take 1 capsule by mouth three times a day as needed for up to 90 days. losartan (COZAAR) 25 mg tablet Take 1 tablet by mouth once daily. memantine (NAMENDA) 10 mg tablet Take 1 tablet by mouth two times a day. FLUoxetine (PROZAC) 40 mg capsule Take 1 capsule by mouth once daily. FLUoxetine (PROZAC) 20 mg capsule Take 1 capsule by mouth once daily. Take along with 40 mg pill for a total of 60 mg daily busPIRone (BUSPAR) 10 mg tablet Take 1 tablet by mouth three times a day. ondansetron (ZOFRAN) 4 mg tablet Take 4 mg by mouth every 8 hours as needed for nausea/vomiting. pantoprazole DR (PROTONIX) 40 mg tablet Take 40 mg by mouth every 12 hours. (Patient not taking: Reported on 10/25/2024) conjugated estrogens (PREMARIN) vaginal cream Use 1 g vaginally two times a week. multivitamin (MULTIPLE VITAMINS) tablet Take by mouth. loratadine (CLARITIN) 10 mg tablet Take by mouth. acetaminophen (TYLENOL EXTRA STRENGTH) 500 mg tablet Take 2 tablets by mouth every 6 hours as needed for pain. MELATONIN ORAL Take 6 mg by mouth daily at bedtime. DAILY MULTIVITAMIN TAB Take one(1) tablet daily. No current facility-administered medications for this visit. Allergies As of Date: 10/25/2024 (No Known Allergies) Fully Assessed 10/25/2024 REVIEW OF SYSTEMS SENSITIVE EXAM: The sensitive examination was discussed with the Patient or Patient's Authorized Liaison Inspection Laboratory Assistant. As applicable, any other physician, advance practice provider, medical student, or other health professional student that will be observing or involved in the sensitive examination for educational or training purposes was discussed with the Patient or Authorized Liaison Inspection Laboratory Assistant. The Patient or Authorized Liaison Inspection Laboratory Assistant has agreed to proceed with the sensitive examination. (Sensitive examination includes inspection and/or palpation of the breasts, pelvis, prostate and anorectal regions). EXAM: BP 158/90 Wt 138 lb (62.6kg) GENERAL: pleasant, female in no apparent distress HEENT: Normocephalic and atraumatic ABDOMEN: soft, non-tender, and no masses PELVIC: external genitalia normal, normal Bartholin's glands, urethra, [place]'s glands, no vulvar lesions, no cervical lesions, physiologic discharge present, normal appearing perineal body and perianal region, cystocele grade 1 BIMANUAL: uterus normal size, shape and consistency, no adnexal masses, and non-tender EXTREMITIES: normal ASSESSMENT AND PLAN: Assessment AND Plan Cystocele with prolapse Discussed with the patient if she is asymptomatic able to urinate not having any pelvic pressure can leave the pessary out at this time. If she experiences any of the sympto (more content not included)... Normal [facility] CNPNon 09-30-2024 CNPN Telephone (OBGYWM) CRISTINAYOVANY ([id number]) 1945 F Date Time Provider Department 09/30/24 HERMAN PALUMBO OBGYWM During your visit today, we recorded the following information about you: Robyn Phipps RN 09/30/2024 11:09 AM Signed Patient's called to r/s her pessary f/u appointment today. Today is not a good day with her dementia, he said. She fell 3 times in a day several weeks ago on a Friday and by that her pessary came out. Patient is voiding without issue. R/S for 10/25 per 's request. Advised to call if would like seen sooner. FYI only Robyn Phipps RN Allergies As of Date: 09/30/2024 (No Known Allergies) Date Reviewed: 08/12/2024 Reviewed by: Ani Núñez MA - Fully Assessed Reason for Visit: Patient Update [1234] Prescriptions as of 10/04/2024 - traZODone (DESYREL) 50 mg tablet Take 1 tablet by mouth daily at bedtime. - methocarbamol (ROBAXIN) 500 mg tablet Take 1 tablet by mouth three times a day as needed. - gabapentin (NEURONTIN) 100 mg capsule Take 1 capsule by mouth three times a day as needed for up to 90 days. - losartan (COZAAR) 25 mg tablet Take 1 tablet by mouth once daily. - memantine (NAMENDA) 10 mg tablet Take 1 tablet by mouth two times a day. - FLUoxetine (PROZAC) 40 mg capsule Take 1 capsule by mouth once daily. - FLUoxetine (PROZAC) 20 mg capsule Take 1 capsule by mouth once daily. Take along with 40 mg pill for a total of 60 mg daily - busPIRone (BUSPAR) 10 mg tablet Take 1 tablet by mouth three times a day. - ondansetron (ZOFRAN) 4 mg tablet Take 4 mg by mouth every 8 hours as needed for nausea/vomiting. - pantoprazole DR (PROTONIX) 40 mg tablet Take 40 mg by mouth every 12 hours. - conjugated estrogens (PREMARIN) vaginal cream Use 1 g vaginally two times a week. - multivitamin (MULTIPLE VITAMINS) tablet Take by mouth. - loratadine (CLARITIN) 10 mg tablet Take by mouth. - acetaminophen (TYLENOL EXTRA STRENGTH) 500 mg tablet Take 2 tablets by mouth every 6 hours as needed for pain. - MELATONIN ORAL Take 6 mg by mouth daily at bedtime. - DAILY MULTIVITAMIN TAB Take one(1) tablet daily. Meds Comments as of 06/22/2019: 3 mg Melatonin at bedtime Imodium prn Problem List As Of Date 09/30/2024 Noted Resolved Major depressive disorder, recurrent, in full r*09/01/2006 OSTEOPOROSIS NOS [M81.0] 09/01/2006 GENERALIZED ANXIETY DIS [F41.1] 09/01/2006 JOINT PAIN-SHLDER [M25.519] 09/01/2006 IRRITABLE COLON [K58.9] ALLERGIC RHINITIS NOS [J30.9] MIXED HYPERLIPIDEMIA [E78.2] 10/05/2007 OBESITY NOS [E66.9] 10/05/2007 CAROTID ART OCCL-NO INFARCT [I65.29] 11/29/2008 Acute midline low back pain without sciatica [M*11/07/2021 03/14/2022 Dementia without behavioral disturbance (HCC) [*10/31/2023 Encounter Status:Closed by ROBYN PHIPPS on 10/04/24 Normal [facility]20[facility] WILLEM EVANS ([id number]) 1945 F Date Time Provider Department 08/17/24 CITLALY العراقي FAMPWS During your visit today, we recorded the following information about you: Citlaly العراقي MD 08/17/2024 4:50 PM Signed Please notify patient that her urine looks OK; does not look like infection MD Rigo Chisholm Rilee, MA 08/17/2024 4:58 PM Signed Call to pt's spouse, [place]. Notified him of results below, verbalized understanding. Gustavo Marin MA Allergies As of Date: 08/17/2024 (No Known Allergies) Date Reviewed: 08/12/2024 Reviewed by: Ani Núñez MA - Fully Assessed Reason for Visit: Results [95] Prescriptions as of 08/17/2024 - traZODone (DESYREL) 50 mg tablet Take 1 tablet by mouth daily at bedtime. - methocarbamol (ROBAXIN) 500 mg tablet Take 1 tablet by mouth three times a day as needed. - traMADol (ULTRAM) 50 mg tablet Take 1 tablet by mouth four times a day as needed for pain for up to 15 days. - gabapentin (NEURONTIN) 100 mg capsule Take 1 capsule by mouth three times a day as needed for up to 90 days. - losartan (COZAAR) 25 mg tablet Take 1 tablet by mouth once daily. - memantine (NAMENDA) 10 mg tablet Take 1 tablet by mouth two times a day. - FLUoxetine (PROZAC) 40 mg capsule Take 1 capsule by mouth once daily. - FLUoxetine (PROZAC) 20 mg capsule Take 1 capsule by mouth once daily. Take along with 40 mg pill for a total of 60 mg daily - busPIRone (BUSPAR) 10 mg tablet Take 1 tablet by mouth three times a day. - ondansetron (ZOFRAN) 4 mg tablet Take 4 mg by mouth every 8 hours as needed for nausea/vomiting. - pantoprazole DR (PROTONIX) 40 mg tablet Take 40 mg by mouth every 12 hours. - conjugated estrogens (PREMARIN) vaginal cream Use 1 g vaginally two times a week. - multivitamin (MULTIPLE VITAMINS) tablet Take by mouth. - loratadine (CLARITIN) 10 mg tablet Take by mouth. - acetaminophen (TYLENOL EXTRA STRENGTH) 500 mg tablet Take 2 tablets by mouth every 6 hours as needed for pain. - MELATONIN ORAL Take 6 mg by mouth daily at bedtime. - DAILY MULTIVITAMIN TAB Take one(1) tablet daily. Meds Comments as of 06/22/2019: 3 mg Melatonin at bedtime Imodium prn Problem List As Of Date 08/17/2024 Noted Resolved Major depressive disorder, recurrent, in full r*09/01/2006 OSTEOPOROSIS NOS [M81.0] 09/01/2006 GENERALIZED ANXIETY DIS [F41.1] 09/01/2006 JOINT PAIN-SHLDER [M25.519] 09/01/2006 IRRITABLE COLON [K58.9] ALLERGIC RHINITIS NOS [J30.9] MIXED HYPERLIPIDEMIA [E78.2] 10/05/2007 OBESITY NOS [E66.9] 10/05/2007 CAROTID ART OCCL-NO INFARCT [I65.29] 11/29/2008 Acute midline low back pain without sciatica [M*11/07/2021 03/14/2022 Dementia without behavioral disturbance (HCC) [*10/31/2023 Encounter Status:Closed by GUSTAVO MARIN on 08/17/24 Normal [facility] Urinalysis complete panel (U )on 08-13-2024 Bacteria LM.HPF (Urine sed) [#/Area] Negative Normal Negative [facility] Comment on above: Order Comment: Speci men Type: URINE SPECIMEN Ordering Facility: [facility] Address: [address] [place] [address] Performed By: #### 2 4356-8 #### [facility] CLIA [id number] [address] [place] [address] [place] Bilirubin Ql (U) Negative Normal Negative [facility] Comment on above: Order Comment: Speci men Type: URINE SPECIMEN Ordering Facility: [facility] Address: [address] [place] [address] Performed By: #### 2 4356-8 #### [facility] CLIA [id number] [address] [place] [address] [place] CALCIUM OXALATE CRYSTALS (UA) Few Abnormal None Seen [facility] Comment on above: Order Comment: Speci men Type: URINE SPECIMEN Ordering Facility: [facility] Address: [address] [place] [address] Performed By: #### 2 4356-8 #### [facility] CLIA [id number] [address] [place] [address] [place] Clarity (Unsp spec) Clear Normal Clear [facility] Comment on above: Order Comment: Speci men Type: URINE SPECIMEN Ordering Facility: [facility] Address: [address] [place] [address] Performed By: #### 2 4356-8 #### [facility] CLIA [id number] [address] [place] [address] [place] Color (U) Yellow Normal Yellow [facility] Comment on above: Order Comment: Speci men Type: URINE SPECIMEN Ordering Facility: [facility] Address: [address] [place] [address] Performed By: #### 2 4356-8 #### [facility] CLIA [id number] [address] [place] [address] [place] Epithelial cells LM.HPF (Urine sed) [#/Area] Few Normal [facility] Comment on above: Order Comment: Speci men Type: URINE SPECIMEN Ordering Facility: [facility] Address: [address] [place], [place] [id number] Performed By: #### 2 4356-8 #### [facility] CLIA [id number] [address] [place] [address] [place] Glucose Test strip (U) [Mass/Vol] Negative Normal Negative [facility] Comment on above: Order Comment: Speci men Type: URINE SPECIMEN Ordering Facility: [facility] Address: [address] [place] [address] Performed By: #### 2 4356-8 #### [facility] CLIA [id number] [address] [place] [address] [place] Hemoglobin Ql (U) Negative Normal Negative [facility] Comment on above: Order Comment: Speci men Type: URINE SPECIMEN Ordering Facility: [facility] Address: [address] [place] [address] Performed By: #### 2 4356-8 #### [facility] CLIA [id number] [address] [place] [address] [place] Hyaline casts (Urine sed) [#/Area] 0 /[LPF] Normal 0 /LPF [facility] Comment on above: Order Comment: Speci men Type: URINE SPECIMEN Ordering Facility: [facility] Address: [address] [place] [address] Performed By: #### 2 4356-8 #### [facility] CLIA [id number] [address] [place] [address] [place] Ketones Ql (U) Trace Abnormal Negative [facility] Comment on above: Order Comment: Speci men Type: URINE SPECIMEN Ordering Facility: [facility] Address: [address] [place] [address] Performed By: #### 2 4356-8 #### [facility] CLIA [id number] [address] [place] [address] [place] Leukocyte esterase Test strip Ql (U) Trace Abnormal Negative [facility] Comment on above: Order Comment: Speci men Type: URINE SPECIMEN Ordering Facility: [facility] Address: [address] [place] [address] Performed By: #### 2 4356-8 #### [facility] CLIA [id number] [address] [place] [address] [place] Nitrite Ql (U) Negative Normal Negative [facility] Comment on above: Order Comment: Speci men Type: URINE SPECIMEN Ordering Facility: [facility] Address: [address] [place] [address] Performed By: #### 2 4356-8 #### [facility] CLIA [id number] [address] [place] [address] [place] pH (U) 6.0 [pH] Normal <8.5 [facility] Comment on above: Order Comment: Speci men Type: URINE SPECIMEN Ordering Facility: [facility] Address: [address] [place] [address] Performed By: #### 2 4356-8 #### [facility] CLIA [id number] [address] [place] [address] [place] Protein (U) [Mass/Vol] Trace Abnormal Negative [facility] Comment on above: Order Comment: Speci men Type: URINE SPECIMEN Ordering Facility: [facility] Address: [address] [place] [address] Performed By: #### 2 4356-8 #### [facility] CLIA [id number] [address] [place] [address] [place] RBC LM.HPF (Urine sed) [#/Area] 0-2 /HPF Normal 0-2 /HPF [facility] Comment on above: Order Comment: Speci men Type: URINE SPECIMEN Ordering Facility: [facility] Address: [address] [place] [address] Performed By: #### 2 4356-8 #### [facility] CLIA [id number] [address] [place] [address] [place] Specific gravity (U) [Rel density] 1.027 Normal 1.005-1.030 [facility] Comment on above: Order Comment: Speci men Type: URINE SPECIMEN Ordering Facility: [facility] Address: [address] [place] [address] Performed By: #### 2 4356-8 #### [facility] CLIA [id number] [address] [place] [address] [place] Urobilinogen Ql (U) 0.2 EU/dL Normal 0.2-1.0 EU/dL Cl [facility] Comment on above: Order Comment: Speci men Type: URINE SPECIMEN Ordering Facility: [facility] Address: [address] [place] [address] Performed By: #### 2 4356-8 #### [facility] CLIA [id number] [address] [place] [address] [place] WBC LM.HPF (Urine sed) [#/Area] 0-5 /HPF Normal 0-5 /HPF [facility] Comment on above: Order Comment: Speci men Type: URINE SPECIMEN Ordering Facility: [facility] Address: [address] [place] [address] Performed By: #### 2 4356-8 #### [facility] CLIA [id number] [address] [place] [address] [place] CNOVon 08-12-2024 CNOV Office Visit (FAMPWS ) WILLEM EVANS ([id number]) 1945 F Date Time Provider Department 08/12/24 4:20 PM CITLALY العراقي FAMPWS During your visit today, we recorded the following information about you: Pulse Respiration Blood pressure Weight 64/minute 16/minute 122/74 68.5 kg Citlaly العراقي MD 08/12/2024 4:52 PM Signed Chief Complaint Patient presents with: Follow Up Back Pain HPI Willem Evans is a 78 year old female who presents here today for a 4 month follow up. Daughter here with patient and pt . Daughter states that they are considering moving both pt and pt into an assisted living facility. Pt here today with her spouse for a 4 month follow up. Was originally scheduled with Yun Jackson CNP on 08/25/23. Is supposed to have blood work completed, labs placed for her appt. Fall risk. Has a hard time maneuvering around, getting up and down. She uses a walker at home. Has a shuffle gait. Hx of IBS. Takes Protonix 40 mg but pt has not been taking it, seems to be doing ok without it. Has chronic constipation issues, doesn't use the miralax or Senna regularly. She has been having urinary incontinence.pt has never had any urinary incontinence before. No urinary pain, no increased confusion. Has seen GI. HTN: Seen in office on 07/16/24 for elevated BP and started on Losartan 25 mg once daily at that visit. Pt over the past several months and visits has had several elevated BP readings. Pt denies any chest pain, sob or dizziness. Has wrist monitor at home, but doesn't really work well on patient. YEIMI/Depression/Insomn ia: Chronic but stable on current regimen of Prozac 40 mg + 20 mg once daily and Buspar 10 mg 1 tab po TID. Takes Trazodone 50 mg 1 tab at bedtime for sleep. Dementia: Follows with Neurology for dementia. Overall stable at present time, but does have occasional bad days which has 2-3 day segments of increased agitation and worsened memory. Does a lot of cognitive activities at home such as puzzles and word searches. Pt on current regimen of Namenda 10 mg twice daily. Pain: Chronic ongoing back pain. Has had intermittent issues with her back, requiring courses of opiate medication. Was seen in March for a compression fx. Pt has had several falls over the past year. Recently Spouse contacted the office on 07/27/24, updating office that pt fell 2 days prior and has since had back pain. Was requesting something to help the ease the pain. Pt was given Tramadol. Nothing seems to help much with the pain. She uses Flexeril today but that hasn't helped. Has a lot of pain on palpation so no massaging. She denies any pain going into the legs. This episode has worsened in the last few weeks. She has had 3 falls in the last few weeks. Has never been evaluated by pain management. Rated pain 10/10, ache when sitting, sharp pains with movement, she gets some spasms and muscle tightness. Percocet really caused her constipation to worsen. Pre-DM: Monitoring A1c through routine labs. Pt currently on no medication at this time. Past medical history, appointments, medications, allergies reviewed. Previous Medical History PAST MEDICAL HISTORY Diagnosis Date Allergic rhinitis, cause unspecified Generalized anxiety disorder with social component Irritable bowel syndrome mainly constipation Osteoporosis, unspecified per prior DEXA times 2 Overweight(278.02) Previous Surgical History PAST SURGICAL HISTORY Procedure Laterality Date COLONOSCOPY [address] ABEL [facility], NORMAL LIG/TRNSXJ FLP TUBE ABDL/VAG APPR UNI/BI Tubal ligation she was 36 years old Family History FAMILY HISTORY Problem Relation Age of Onset Stroke Father at 85, healthy til then Breast Cancer Maternal Aunt roughly 40 Colon Cancer Other none Coronary Artery Disease Other none Diabetes Other none Patient Allergies ALLERGIES No Known Allergies Current Medications Current Outpatient Medications on File Prior to Visit Medication Sig losartan (COZAAR) 25 mg tablet Take 1 tablet by mouth once daily. memantine (NAMENDA) 10 mg tablet Take 1 tablet by mouth two times a day. FLUoxetine (PROZAC) 40 mg capsule Take 1 capsule by mouth once daily. FLUoxetine (PROZAC) 20 mg capsule Take 1 capsule by mouth once daily. Take along with 40 mg pill for a total of 60 mg daily busPIRone (BUSPAR) 10 mg tablet Take 1 tablet by mouth three times a day. traZODone (DESYREL) 50 mg tablet Take 1 tablet by mouth daily at bedtime. ondansetron (ZOFRAN) 4 mg tablet Take 4 mg by mouth every 8 hours as needed for nausea/vomiting. pantoprazole DR (PROTONIX) 40 mg tablet Take 40 mg by mouth every 12 hours. conjugated estrogens (PREMARIN) vaginal cream Use 1 g vaginally two times a week. multivitamin (MULTIPLE VITAMINS) tablet Take by mouth. loratadine (CLARITIN) 10 mg tablet Take by mouth (more content not included)... Normal [facility] Aaron 07-27-2024 NAEL Telephone (FAMPTW) WILLEM EVANS ([id number]) 1945 F Date Time Provider Department 07/27/24 CITLALY العراقي During your visit today, we recorded the following information about you: Nathalie YefriSarah 07/27/2024 8:49 AM Signed Willem has her spouse Virginia is calling Citlaly العراقي MD today with concern regarding patient took a fall this past Friday evening 07/25/[address] to bed. Patient fell on the right side and bruised up her right arm. At this time the middle of the back is hurting and sore from that fall, also bruised her chin. Spouse is requesting Tramadol if provider agrees. The [facility] Please call spouse Virginia to discuss at [phone] Patient has been identified by name and birthdate. Duration of symptoms: 3 days Person calling: spouse: [place] Call patient spouse at: [phone] Was an appointment scheduled: No Closing statement: Symptom Call: Thank you for calling [facility], your call is very important. A nurse will call in approximately 2-4 hours during business hours. If this is an emergency, please contact 911. Sarah Zelaya [facility] Citlaly العراقي MD 07/27/2024 11:26 AM Signed Ok for a few tramadol as ordered MD Rigo Chisholm Rilee, MA 07/27/2024 12:42 PM Signed Call to pt's spouse, Virginia and notified him that Rx has been sent in as requested. Virginia verbalized understanding. Gustavo Marin MA Allergies As of Date: 07/27/2024 (No Known Allergies) Date Reviewed: 07/16/2024 Reviewed by: Gustavo Marin MA - Fully Assessed Reason for Visit: Fall [218] Primary Visit Diagnosis:Fall, initial encounter [W19.XXXA] Order(s):traMADol (ULTRAM) 50 mg tabletTake 1 tablet by mouth four times a day as needed for pain for up to 3 days.Disp: 12 tabletRfl: 0 Prescriptions as of 07/27/2024 - traMADol (ULTRAM) 50 mg tablet Take 1 tablet by mouth four times a day as needed for pain for up to 3 days. - losartan (COZAAR) 25 mg tablet Take 1 tablet by mouth once daily. - memantine (NAMENDA) 10 mg tablet Take 1 tablet by mouth two times a day. - FLUoxetine (PROZAC) 40 mg capsule Take 1 capsule by mouth once daily. - FLUoxetine (PROZAC) 20 mg capsule Take 1 capsule by mouth once daily. Take along with 40 mg pill for a total of 60 mg daily - busPIRone (BUSPAR) 10 mg tablet Take 1 tablet by mouth three times a day. - traZODone (DESYREL) 50 mg tablet Take 1 tablet by mouth daily at bedtime. - ondansetron (ZOFRAN) 4 mg tablet Take 4 mg by mouth every 8 hours as needed for nausea/vomiting. - pantoprazole DR (PROTONIX) 40 mg tablet Take 40 mg by mouth every 12 hours. - conjugated estrogens (PREMARIN) vaginal cream Use 1 g vaginally two times a week. - multivitamin (MULTIPLE VITAMINS) tablet Take by mouth. - loratadine (CLARITIN) 10 mg tablet Take by mouth. - acetaminophen (TYLENOL EXTRA STRENGTH) 500 mg tablet Take 2 tablets by mouth every 6 hours as needed for pain. - MELATONIN ORAL Take 6 mg by mouth daily at bedtime. - DAILY MULTIVITAMIN TAB Take one(1) tablet daily. 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 Encounter Status:Closed by GUSTAVO MARIN on 07/27/24 [facility] CNOVon 07-16-2024 CNOV Office Visit (FAMPWS ) WILLEM EVANS ([id number]) 1945 F Date Time Provider Department 07/16/24 2:00 PM [facility] During your visit today, we recorded the following information about you: Pulse Respiration Blood pressure Weight 82/minute 18/minute 148/72 68.8 kg Citlaly العراقي MD 07/16/2024 2:21 PM Signed Chief Complaint Patient presents with: Follow Up: BP HPI Willem Evans is a 78 year old female who presents here today for blood pressure follow up. Here today with spouse, Virginia. Pt saw Yun Jackson in Apr for elevated BP. She was not started on any medications at that time. Blood pressure at that visit was 142/78. Today patient denies any chest pains, dizziness, or shortness of breath. They do have a wrist cuff at home, but doesn't seem to work well on patient, so have not been able to really check. Spouse notes that she's had several elevated readings over her last few visits. Currently on no blood pressure medications. Spouse asking if she needs to take a low dose Aspirin. Following with neuro for dementia. At this time she has stablized. Was recently seen by Neuro on 07/14/24 and pt's BP was 176/90 during OV. They recommended pt follow up with Primary Care and scheduled visit today. Spouse states that patient has suffered from 3 falls, which has taken time to recover from over the past two years. Has suffered ongoing back issues causing weakness. At this time, she's overall recovered per patient spouse. Past medical history, appointments, medications, allergies reviewed. Previous Medical History PAST MEDICAL HISTORY Diagnosis Date Allergic rhinitis, cause unspecified Generalized anxiety disorder with social component Irritable bowel syndrome mainly constipation Osteoporosis, unspecified per prior DEXA times 2 Overweight(278.02) Previous Surgical History PAST SURGICAL HISTORY Procedure Laterality Date COLONOSCOPY [address] ABEL [facility], NORMAL LIG/TRNSXJ FLP TUBE ABDL/VAG APPR UNI/BI Tubal ligation she was 36 years old Family History FAMILY HISTORY Problem Relation Age of Onset Stroke Father at 85, healthy til then Breast Cancer Maternal Aunt roughly 40 Colon Cancer Other none Coronary Artery Disease Other none Diabetes Other none Patient Allergies ALLERGIES No Known Allergies Current Medications Current Outpatient Medications on File Prior to Visit Medication Sig memantine (NAMENDA) 10 mg tablet Take 1 tablet by mouth two times a day. FLUoxetine (PROZAC) 40 mg capsule Take 1 capsule by mouth once daily. FLUoxetine (PROZAC) 20 mg capsule Take 1 capsule by mouth once daily. Take along with 40 mg pill for a total of 60 mg daily busPIRone (BUSPAR) 10 mg tablet Take 1 tablet by mouth three times a day. traZODone (DESYREL) 50 mg tablet Take 1 tablet by mouth daily at bedtime. ondansetron (ZOFRAN) 4 mg tablet Take 4 mg by mouth every 8 hours as needed for nausea/vomiting. pantoprazole DR (PROTONIX) 40 mg tablet Take 40 mg by mouth every 12 hours. conjugated estrogens (PREMARIN) vaginal cream Use 1 g vaginally two times a week. multivitamin (MULTIPLE VITAMINS) tablet Take by mouth. loratadine (CLARITIN) 10 mg tablet Take by mouth. acetaminophen (TYLENOL EXTRA STRENGTH) 500 mg tablet Take 2 tablets by mouth every 6 hours as needed for pain. MELATONIN ORAL Take 6 mg by mouth daily at bedtime. DAILY MULTIVITAMIN TAB Take one(1) tablet daily. No current facility-administered medications on file prior to visit. Social History Social History Tobacco Use Smoking status: Never Smokeless tobacco: Never Tobacco comments: Goes by Willem [employer] Use Vaping status: Never Used Substance Use Topics Alcohol use: No Drug use: No EXAM: BP 148/72 Pulse 82 Resp 18 Wt 68.8 kg (151 lb 10.8 oz) General Appearance: Well appearing, alert, in no acute distress, well-hydrated, well nourished.. Lungs: Lungs clear to auscultation. No wheezing, rhonchi, rales.. Heart: RRR without murmur, gallop, or rubs. No ectopy. Health Maintenance List Bone Density Screening due on 11/24/2010 Covid-19 Vaccine( - 2023- season) due on 04/11/2024 DTaP,Tdap,Td Vaccine(1 - Tdap) due on 10/30/2024 RSV Vaccine(1 - 1-dose 75+ series) due on 10/30/2024 Shingrix Vaccine(1 of 2) due on 10/30/2024 Diabetes Screening due on 02/01/2027 Influenza Vaccine Completed Advance Directive Discussion Completed Hepatitis C Screening Completed Pneumococcal Vaccine: 65+ Completed Mammogram Screening Discontinued Colorectal Cancer Screening Discontinued Data reviewed None ASSESSMENT/PLAN: 1. Hypertension, unspecified type - ICD9: 401.9, ICD10: I10 - Newly dx. - Elevated in office today - Start Losartan 25 mg once daily - Recommend home blood pressure monitoring, to bring results to next visit - Encouraged sodium restriction, (more content not included)... Normal [facility] CNOVon 07-14-2024 CNOV Office Visit (NEMOWS ) CRISTINAWILLEM Bolton ([id number]) 1945 F Date Time Provider Department 07/14/24 1:30 PM ROSEMARIE SPEARS During your visit today, we recorded the following information about you: Pulse Respiration Blood pressure Weight 74/minute 14/minute 176/90 68 kg Rosemarie Spears PA-C 07/14/2024 2:10 PM Signed [facility] Name: Willem Evans Age: [age] year old Gender: female Primary Care Provider: Citlaly العراقي MD 07/14/2024 - General Neurology, Rosemarie Spears PA-C ASSESSMENT ASSESSMENT/PLAN: 1. Dementia without behavioral disturbance, psychotic disturbance, mood disturbance, or anxiety, unspecified dementia severity, unspecified dementia type (HCC) - ICD9: 294.20, ICD10: F03.90 (primary diagnosis) 2. Memory change - ICD9: 780.93, ICD10: R41.3 Patient presents with her today for memory loss, dementia follow-up. Previous MRI with hippocampal volumes in 1st percentile, noted gradual memory loss likely concerning for neurodegenerative process like Alzheimer's disease. Did try Aricept in the past but noted bradycardia with this. Is currently on Namenda 10 mg twice daily and doing well, no side effects. is primary history provider and notes her memory has been stable, she does have occasional bad days which usually occur in 2 to 3 days segments, but then she will have many good days. During these times she is bit more agitated and has worsened memory, no etiology for when these days occur. Otherwise, no behavioral changes, no wandering, sleep has been stable, appetite and weight are stable. Patient did have 1 slip and fall in the bathroom, states that she was able to slowly bring herself down by holding onto the door with no injuries. got rid of the rug in the bathroom. Patient is not very physically active, discussed this with patient and family about increasing physical activity around the house. Patient does do a lot of cognitive activities at home including puzzles and word searches. No new symptoms today that would warrant additional workup at this time. Will continue with Namenda 10 mg twice daily and encouraged conservative therapy noted above. Patient has been agreeable to treatment plan of care at this time, questions were answered. Patient to follow-up in 5 to 6 months. Rosemarie Spears PA-C This is a 78 year old female followed for dementia Current medication treatment: Namenda 10 mg twice daily Indication for repeat cognitive testing: No Encounter Diagnosis ICD-10-CM 1. Dementia without behavioral disturbance, psychotic disturbance, mood disturbance, or anxiety, unspecified dementia severity, unspecified dementia type (HCC) F03.90 2. Memory change R41.3 Return in about 5 months (around 12/12/2024). Chart, labs,and relevant images reviewed. Chief Complaint:Patient presents with: Recheck: 3 months dementia Chart Review: Last Filed Values Date of Most Recent Assessment and Plan 04/14/24 Specialty General Neurology Assessment ASSESSMENT/PLAN: 1. Dementia without behavioral disturbance, psychotic disturbance, mood disturbance, or anxiety, unspecified dementia severity, unspecified dementia type (HCC) - ICD9: 294.20, ICD10: F03.90 (primary diagnosis) 2. Lacunar infarction (HCC) - ICD9: 434.91, ICD10: I63.81 3. Memory loss - ICD9: 780.93, ICD10: R41.3 4. Memory change - ICD9: 780.93, ICD10: R41.3 Patient with worsening memory since last visit, history primarily provided by . Notes she has been having good and bad days, today is a bad day. Angelina was , previous was . However, original moca ws . Patient with significant hippocampal atrophy on MRI brain concerning for neurodegenerative process, however, also has depression which may be contributing. No new concerns today, she did have a mechanical fall in February sustaining two compression fractures in her back, recovered well from this but notes she was agitated and confused during recovery, attributing this to pain meds. Has since improved. No further falls, walking around the house but not often, very cognitively active. Will continue with namenda 10mg bid and encouraged conservative therapy. Discussed help at home as patient lives solely with her , he notes no signs of burnout, doing well and deferred social work consult. No new symptoms that would warrant additional work up at this time, patient to follow up in 3 months for repeat moca. Patient and agreeable to treatment and plan. Rosemarie Spears PA-C HPI: Last seen on 04/14/24 for dementia. Some worsening memory, concerning for alzheimers. Had mechanical fall, on namenda 10mg bid. Deferred social work. Patient presents with her for follow-up appointment. Has been provides majority of information and history. Notes that patient did have 1 fa (more content not included)... Normal [facility] CNOVon 07-07-2024 CNOV Office Visit (OBGYWM ) WILLEM EVANS ([id number]) 1945 F Date Time Provider Department 07/07/24 11:40 AM HERMAN PALUMBO OBGYWM During your visit today, we recorded the following information about you: Blood pressure Weight 152/82 68.9 kg Herman Palumbo MD 07/07/2024 12:07 PM Signed Acid Wash Operator offered: Patient declines. Willem Evans is a 78 year old No obstetric history on file. who presents today for pessary insertion/cleaning. She wears a size 2 short stem Gellhorn pessary. She returns today with no complaints. She has not had problems with the pessary. She has not had vaginal discharge. She has not had vaginal bleeding. EXAM: pleasant, well developed, well nourished, in no apparent distress Pelvic: Bartholin's, urethra and [place]'s glands were normal. The Gellhorn pessary was removed. Vaginal exam indicated no erythema, no ulcerations, and no vaginal discharge. The pessary was cleaned a size 2 Gellhorn was inserted without difficulty The pessary was inserted, patient tolerated the procedure well and the device is comfortable. (N81.4) Cystocele with prolapse (primary encounter diagnosis) (Z46.89) Pessary maintenance Pessary check in 3 months I spent a total of 20 minutes on the date of the service which included preparing to see the patient, [id number] patient care, completing clinical documentation, obtaining and/or reviewing separately obtained history, performing a medically appropriate examination, and counseling and educating the patient/family/[facility] hellen. Herman Almanzar MD Allergies As of Date: 07/07/2024 (No Known Allergies) Date Reviewed: 07/07/2024 Reviewed by: Jolie Harrell MA - Fully Assessed Primary Visit Diagnosis:Cystocele with prolapse [N81.4] Other Visit Diagnosis:Pessary maintenance [Z46.89] Prescriptions as of 07/07/2024 - FLUoxetine (PROZAC) 40 mg capsule Take 1 capsule by mouth once daily. - FLUoxetine (PROZAC) 20 mg capsule Take 1 capsule by mouth once daily. Take along with 40 mg pill for a total of 60 mg daily - busPIRone (BUSPAR) 10 mg tablet Take 1 tablet by mouth three times a day. - memantine (NAMENDA) 10 mg tablet Take 1 tablet by mouth two times a day. - traZODone (DESYREL) 50 mg tablet Take 1 tablet by mouth daily at bedtime. - ondansetron (ZOFRAN) 4 mg tablet Take 4 mg by mouth every 8 hours as needed for nausea/vomiting. - pantoprazole DR (PROTONIX) 40 mg tablet Take 40 mg by mouth every 12 hours. - conjugated estrogens (PREMARIN) vaginal cream Use 1 g vaginally two times a week. - multivitamin (MULTIPLE VITAMINS) tablet Take by mouth. - loratadine (CLARITIN) 10 mg tablet Take by mouth. - acetaminophen (TYLENOL EXTRA STRENGTH) 500 mg tablet Take 2 tablets by mouth every 6 hours as needed for pain. - MELATONIN ORAL Take 6 mg by mouth daily at bedtime. - DAILY MULTIVITAMIN TAB Take one(1) tablet daily. 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 Follow-up and Disposition History for Encounter Date Provider Department Center 07/07/2024 [id number] MCINTOSH,BRITTNEY Salguero Encounter Status:Closed by HERMAN RICHARDS on 07/07/24 [facility] CNOVon 04-14-2024 CNOV Office Visit (FAMPWS ) WILLEM EVANS ([id number]) 1945 F Date Time Provider Department 04/14/24 2:20 PM YUN JACKSON [facility] During your visit today, we recorded the following information about you: Pulse Respiration Blood pressure Weight 73/minute 16/minute 142/78 69.3 kg Yun Jackson APRN.[employer] 04/14/2024 3:23 PM Signed This is a 78 year old female who presents today with: Patient presents with: Follow Up: 3 month follow up HISTORY OF PRESENT ILLNESS: Willem Evans is a 78 year old female. Patient presents with: Follow Up: 3 month follow up Prediabetes: A1C went from 6.1 to 5.9, refers that they have been watching diet. No hypoglycemic episodes. Denies increased thirst or urination. No difficulty with vision. Repeat labs due in August. Anxiety/depression: Taking Prozac 40 mg plus an additional 20 mg. Taking BuSpar 10 mg three times daily. refers that some days she seems more anxious, usually in the evening after dinner. Sleeping well. No Si/Hi. Using Trazodone 50 mg at bedtime which has been very helpful. Memory: Some worsening symptoms in the evening. Following with Neurology, Seen today prior to todays appt. Taking Namenda. Still some agitation at night time, seems to come and go. Refers she feels well. Gi Bleed: Taking protonix 40 mg BID. No abdominal pain, nausea, or vomiting. Vaccines: Would like flu vaccine today. PAST MEDICAL HISTORY: PAST MEDICAL HISTORY No date: Allergic rhinitis, cause unspecified No date: Generalized anxiety disorder Comment: with social component No date: Irritable bowel syndrome Comment: mainly constipation No date: Osteoporosis, unspecified Comment: per prior DEXA times 2 No date: Overweight(278.02) PAST SURGICAL HISTORY 2001 +/-: COLONOSCOPY Comment: DR. ABEL, [facility], NORMAL No date: LIG/TRNSXJ FLP TUBE ABDL/VAG APPR UNI/BI Comment: Tubal ligation she was 36 years old ALLERGIES Patient has no known allergies. MEDICATIONS Current Outpatient Medications Medication Sig ondansetron (ZOFRAN) 4 mg tablet Take 4 mg by mouth every 8 hours as needed for nausea/vomiting. pantoprazole DR (PROTONIX) 40 mg tablet Take 40 mg by mouth every 12 hours. traZODone (DESYREL) 50 mg tablet Take 1 tablet by mouth daily at bedtime. memantine (NAMENDA) 10 mg tablet Take 1 tablet by mouth two times a day. busPIRone (BUSPAR) 10 mg tablet Take 1 tablet by mouth three times a day. FLUoxetine (PROZAC) 20 mg capsule Take 1 capsule by mouth once daily. Take along with 40 mg pill for a total of 60 mg daily FLUoxetine (PROZAC) 40 mg capsule Take 1 capsule by mouth once daily. conjugated estrogens (PREMARIN) vaginal cream Use 1 g vaginally two times a week. multivitamin (MULTIPLE VITAMINS) tablet Take by mouth. loratadine (CLARITIN) 10 mg tablet Take by mouth. acetaminophen (TYLENOL EXTRA STRENGTH) 500 mg tablet Take 2 tablets by mouth every 6 hours as needed for pain. MELATONIN ORAL Take 6 mg by mouth daily at bedtime. DAILY MULTIVITAMIN TAB Take one(1) tablet daily. No current facility-administered medications for this visit. FAMILY HISTORY Problem Relation Age of Onset Stroke Father at 85, healthy til then Breast Cancer Maternal Aunt roughly 40 Colon Cancer Other none Coronary Artery Disease Other none Diabetes Other none Social History Tobacco Use Smoking status: Never Smokeless tobacco: Never Tobacco comments: Goes by Willem [employer] Use Vaping status: Never Used Substance Use Topics Alcohol use: No Drug use: No REVIEW OF SYSTEMS GENERAL: No weight loss, malaise or fevers/chills HEENT: Negative for frequent or significant headaches, No changes in hearing or vision. NECK: Negative for lumps, goiter, pain and significant neck swelling RESPIRATORY: Negative for cough, hemoptysis, wheezing, dyspnea or shortness of breath CARDIOVASCULAR: Negative for chest pain, leg swelling, orthopnea, or palpitations GI: No nausea, vomiting, or diarrhea/constipation . No hematochezia/melena. No heartburn or reflux symptoms. : No history of dysuria, frequency or incontinence MUSCULOSKELETAL: Negative for joint pain or swelling. SKIN: Negative for lesions, rash, and itching ENDOCRINE: Negative for cold or heat intolerance, polyuria, polydipsia and goiter NEURO: No history of headaches, syncope, paralysis, seizures or tremors MOOD: Negative for depression, anxiety, or suicidal ideation. EXAM: BP 142/78 Pulse 73 Resp 16 Wt 69.3 kg (152 lb 12.5 oz) SpO2 98% PHYSICAL EXAM: General Appearance: Well appearing, alert, in no acute distress, well-hydrated, well nourished. Skin: Skin color, texture, turgor normal, no suspicious rashes or lesions. Head: Normocephalic, no masses, lesions, tenderness or abnormalities. Eyes: Anicteric sclera. Extraocular movements are intact. Lungs: Lungs clear to auscultation. No wh (more content not included)... Normal [facility] CN Office Visit (NEMVANE ) WILLEM EVANS ([id number]) 1945 F Date Time Provider Department 04/14/24 1:30 PM ROSEMARIE SPEARS During your visit today, we recorded the following information about you: Pulse Respiration Blood pressure Weight 66/minute 16/minute 174/76 69.2 kg Rosemarie Spears PA-C 04/14/2024 2:39 PM Signed [facility] Name: Willem Evans Age: [age] year old Gender: female Primary Care Provider: Citlaly العراقي MD 04/14/2024 - General Neurology, Rosemarie Spears PA-C ASSESSMENT ASSESSMENT/PLAN: 1. Dementia without behavioral disturbance, psychotic disturbance, mood disturbance, or anxiety, unspecified dementia severity, unspecified dementia type (HCC) - ICD9: 294.20, ICD10: F03.90 (primary diagnosis) 2. Lacunar infarction (HCC) - ICD9: 434.91, ICD10: I63.81 3. Memory loss - ICD9: 780.93, ICD10: R41.3 4. Memory change - ICD9: 780.93, ICD10: R41.3 Patient with worsening memory since last visit, history primarily provided by . Notes she has been having good and bad days, today is a bad day. Angelina was , previous was . However, original moca ws . Patient with significant hippocampal atrophy on MRI brain concerning for neurodegenerative process, however, also has depression which may be contributing. No new concerns today, she did have a mechanical fall in February sustaining two compression fractures in her back, recovered well from this but notes she was agitated and confused during recovery, attributing this to pain meds. Has since improved. No further falls, walking around the house but not often, very cognitively active. Will continue with namenda 10mg bid and encouraged conservative therapy. Discussed help at home as patient lives solely with her , he notes no signs of burnout, doing well and deferred social work consult. No new symptoms that would warrant additional work up at this time, patient to follow up in 3 months for repeat moca. Patient and agreeable to treatment and plan. Rosemarie Spears PA-C This is a 78 year old female followed for memory loss. Current medication treatment: Namenda 10mg bid Indication for repeat cognitive testing: No Encounter Diagnosis ICD-10-CM 1. Dementia without behavioral disturbance, psychotic disturbance, mood disturbance, or anxiety, unspecified dementia severity, unspecified dementia type (HCC) F03.90 2. Lacunar infarction (HCC) I63.81 3. Memory loss R41.3 4. Memory change R41.3 Return in about 3 months (around 07/14/2024). Chart, labs,and relevant images reviewed. Chief Complaint:Patient presents with: Follow Up Chart Review: 12/10/23 ASSESSMENT/PLAN: 1. Dementia without behavioral disturbance, psychotic disturbance, mood disturbance, or anxiety, unspecified dementia severity, unspecified dementia type (HCC) - ICD9: 294.20, ICD10: F03.90 (primary diagnosis) Patient with significant improvement in her MoCA today, previous was and today was . Did significant treatment in her mood as well, patient does suffer from depression and is on Prozac and BuSpar, likely impacting her memory. However, MRI of the brain was hippocampus in the 1st percentile, neuro psychological testing concerning for dementia process like Alzheimer's disease as well as 0/5 on MoCA for delayed recall concerning for neurodegenerative process like Alzheimer's disease. Discussed this at length with patient and her and they understand. Previously did not tolerate Aricept due to bradycardia so this was stopped. She started Namenda at last appointment and had some benefit with this, no side effects. Would like to increase if tolerated. Will increase Namenda to 10 mg twice daily, discussed common side effects and patient is amenable. Weight is stable, patient is not driving, able to perform ADLs at home where she lives with her . Encouraged conservative therapy as well including increasing physical activity, cognitive activity. 2. Lacunar infarction (HCC) - ICD9: 434.91, ICD10: I63.81 No new neurologic symptoms, patient compliant with aspirin daily. Encouraged monitoring and maintaining risk factors with primary care. Patient has been agreeable to treatment plan of care at this time, questions were answered. Patient to follow-up in 3 months or sooner should any symptoms change or worsen. Rosemarie Spears PA-C HPI: Last seen on 12/10/23 for memory loss, neuropsych testing supports dementia. Reports being stable on aricpet 10mg, moca , increased namenda to 10mg bid. Patient presents with her for follow up. Notes she had a fall in February after she was bending over to put clothes in the washer. Sustained two compression fractures, has been doing well. Was very confused for a while due to the trauma as well as the pain medication but since she has (more content not included)... Normal [facility] CNOVon 04-07-2024 CNOV Office Visit (OBGYWM ) WILLEM EVANS ([id number]) 1945 F Date Time Provider Department 04/07/24 11:40 AM HERMAN PALUMBO OBGYWM During your visit today, we recorded the following information about you: Blood pressure Weight 142/70 69.4 kg Herman Palumbo MD 04/07/2024 12:11 PM Signed Acid Wash Operator offered: Patient declines. Willem Evans is a 78 year old No obstetric history on file. who presents today for pessary insertion She wears a size 2 short-stem Gellhorn pessary. She returns today with no complaints. The Pessary fell out a few days ago- otherwise before that no problems- like bleeding or discharge, no pain. EXAM: BP 142/70 Wt 69.4 kg (153 lb) pleasant, well developed, well nourished, in no apparent distress Pelvic: Bartholin's, urethra and [place]'s glands were normal. no erythema, no ulcerations, and no vaginal discharge. The pessary was cleaned a new size 2 short-stem Gellhorn was inserted without difficulty The pessary was inserted, patient tolerated the procedure well and the device is comfortable. (N81.2) Cervical prolapse (primary encounter diagnosis) (N81.4) Cystocele with prolapse (Z46.89) Pessary maintenance RTO 3 mo for pessary maintenance I spent a total of 20 minutes on the date of the service which included preparing to see the patient, [id number] patient care, completing clinical documentation, obtaining and/or reviewing separately obtained history, performing a medically appropriate examination, and counseling and educating the patient/family/caregi hellen Herman Almanzar MD . Allergies As of Date: 04/07/2024 (No Known Allergies) Date Reviewed: 04/07/2024 Reviewed by: Jolie Harrell MA - Fully Assessed Reason for Visit: Pessary [345] Primary Visit Diagnosis:Cervical prolapse [N81.2] Other Visit Diagnoses:Cystocele with prolapse [N81.4] Pessary maintenance [Z46.89] Prescriptions as of 04/07/2024 - ondansetron (ZOFRAN) 4 mg tablet Take 4 mg by mouth every 8 hours as needed for nausea/vomiting. - pantoprazole DR (PROTONIX) 40 mg tablet Take 40 mg by mouth every 12 hours. - traZODone (DESYREL) 50 mg tablet Take 1 tablet by mouth daily at bedtime. - memantine (NAMENDA) 10 mg tablet Take 1 tablet by mouth two times a day. - busPIRone (BUSPAR) 10 mg tablet Take 1 tablet by mouth three times a day. - FLUoxetine (PROZAC) 20 mg capsule Take 1 capsule by mouth once daily. Take along with 40 mg pill for a total of 60 mg daily - FLUoxetine (PROZAC) 40 mg capsule Take 1 capsule by mouth once daily. - conjugated estrogens (PREMARIN) vaginal cream Use 1 g vaginally two times a week. - multivitamin (MULTIPLE VITAMINS) tablet Take by mouth. - loratadine (CLARITIN) 10 mg tablet Take by mouth. - acetaminophen (TYLENOL EXTRA STRENGTH) 500 mg tablet Take 2 tablets by mouth every 6 hours as needed for pain. - MELATONIN ORAL Take 6 mg by mouth daily at bedtime. - DAILY MULTIVITAMIN TAB Take one(1) tablet daily. 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 Follow-up and Disposition History for Encounter Date Provider Department Center 04/07/2024 [id number] RICHARDS*KEYON Salguero Encounter Status:Closed by HERMAN RICHARDS on 04/07/24 [facility] 04-02-2024 NAEL Telephone (KEYON) WILLEM EVANS ([id number]) 1945 F Date Time Provider Department 04/02/24 ROBYN ABRAHAM During your visit today, we recorded the following information about you: Julita Bermudez RN 04/02/2024 12:34 PM Signed Pt's calls stating her pessary has fallen out and he wants to know what he should do. States he is able to bring her in the office today if possible. He states she is having memory problems and asks that we call his cell phone [phone]. Please advise.ADALBERTO Morgan Jennifer, MD 04/02/2024 12:37 PM Signed Is she having any problems with emptying her bladder? Otherwise she does need to be seen today. A routine appointment can be made. Ashlie Lovett APRN.KARLEE 04/02/2024 12:42 PM Signed If memory problems are new/acute, needs to be evaluated in ER. Ashlie Lovett APRN.Julita Sales RN 04/02/2024 1:04 PM Signed Pt's states Pt does not have any issues with emptying her bladder. Appt made for 04/07 with DM for pessary placement. Memory issues are not new-Has been seeing neurology since 08/19/23. Julita Bermudez RN Allergies As of Date: 04/02/2024 (No Known Allergies) Date Reviewed: 03/12/2024 Reviewed by: Gustavo Marin MA - Fully Assessed Reason for Visit: Pessary fell out [Other] Primary Visit Diagnosis:Encounter for fitting and adjustment of pessary [Z46.89] Other Visit Diagnoses:Cervical prolapse [N81.2] Vaginal atrophy [N95.2] Prescriptions as of 04/02/2024 - ondansetron (ZOFRAN) 4 mg tablet Take 4 mg by mouth every 8 hours as needed for nausea/vomiting. - pantoprazole DR (PROTONIX) 40 mg tablet Take 40 mg by mouth every 12 hours. - traZODone (DESYREL) 50 mg tablet Take 1 tablet by mouth daily at bedtime. - memantine (NAMENDA) 10 mg tablet Take 1 tablet by mouth two times a day. - busPIRone (BUSPAR) 10 mg tablet Take 1 tablet by mouth three times a day. - FLUoxetine (PROZAC) 20 mg capsule Take 1 capsule by mouth once daily. Take along with 40 mg pill for a total of 60 mg daily - FLUoxetine (PROZAC) 40 mg capsule Take 1 capsule by mouth once daily. - conjugated estrogens (PREMARIN) vaginal cream Use 1 g vaginally two times a week. - multivitamin (MULTIPLE VITAMINS) tablet Take by mouth. - loratadine (CLARITIN) 10 mg tablet Take by mouth. - acetaminophen (TYLENOL EXTRA STRENGTH) 500 mg tablet Take 2 tablets by mouth every 6 hours as needed for pain. - MELATONIN ORAL Take 6 mg by mouth daily at bedtime. - DAILY MULTIVITAMIN TAB Take one(1) tablet daily. 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] 11/29/2008 Acute midline low back pain without sciatica [M*11/07/2021 03/14/2022 Dementia without behavioral disturbance (HCC) [*10/31/2023 Encounter Status:Closed by JULITA BERMUDEZ on 04/02/24 [facility] CNOVon 03-12-2024 CNOV Office Visit (FAMPWS ) WILLEM EVANS ([id number]) 1945 F Date Time Provider Department 03/12/24 2:20 PM CITLALY العراقي During your visit today, we recorded the following information about you: Citlaly العراقي MD 03/12/2024 4:29 PM Signed Chief Complaint Patient presents with: Hospital Follow Up HPI Willem Evans is a 78 year old female who presents here today for a Hospital follow up. Pt here today with her spouse for an ED visit. Pt seen in [facility] ED on 02/28/24 and 03/08/24. Initially diagnosed with compression fracture spine, then had GI bleeding after taking Celebrex. Spouse is inquiring about a sleeping pill to help her sleep through the night. Pt is very uncomfortable and not sleeping well. Does have hx of dementia. Pt is still in a lot of pain and needs something done now for the pain. Using Tylenol, but this is not effective. She was given oxycodone in ER but paul caused constipation. Spouse is not sure what route they need to go. Still having dark black stool, pale in color and feeling very unwell. No vomiting of blood any longer. Pt reports she has chronic back issues and has gone through issues with her back in the past. Asking if she needs to have upper GI and Colonoscopy done. She is currently taking Protonix 40 mg bid and Zofran 4 mg prn. Not able to keep much down. Has been off her routine medications for several days which is very concerning for him. [facility] ED visit from 03/08/24: Narrative: Patient is a 78-year-old female from home with past medical history of anxiety and depression and as well as IBS and dementia. She was seen in the ER on February 27 secondary to mechanical fall and was found to have a thoracic and lumbar compression fracture. She was placed on Percocet and discharged home with family. Family states that she was recently placed on Celebrex by the family physician secondary to persistent pain. Patient went to bed normally and then awoke this morning covered in emesis that appeared dark/coffee-ground in nature. also states he noticed some dark stools recently. Family reports that patient does appear paler in color than her baseline. With concern for internal bleeding she was brought in for evaluation. Medical decision making narrative: Patient arrived to the ER hemodynamically stable but family reported coffee-ground emesis. She was recently placed on Celebrex which could be the cause of this. Family states that there is no remote history of alcohol abuse or gastritis. With concern for internal bleeding basic labs were obtained and her hemoglobin is low at 9.3 which is down from a few years ago at 12 but this is well above a transfusion value of 7. The patient's BUN is elevated at 55 which also correlates with upper GI bleed. Stool however is not melanotic. Secondaryto concern for GI bleed patient was given IV fluids as well as a Protonix bolus and drip. She is hemodynamically stable and does not need vasopressors or airway protection but with concern for active internal bleeding a CTA will be obtained. Plan of care will be to potentially admit to the hospital for furtherworkup after laboratory studies and CT report are resulted. CTA is still pending and therefore patient will be signed out to the day physician Dr. James ADDENDUM by Dr. Jared James DO on 03/08/24 at 0925 Patient's case was signed out to me by previous provider to follow-up on her CTA abdomen pelvis. Patient CBC was significant for leukocytosis of 14,000, hemoglobin is noted to be 9.3 which was down from a previous blood draw but does appear to be stable, platelet count noted to be normal at 443. Patient INR normal at 1, PT normal at13.4. Patient's sodium normal 140, potassium normal 3.9, creatinine normal at 0.79 her BUN is elevated when compared to previous blood draws at 55. Patient'sglucose was 189., Lactic acid normal at 2, AST and ALT were 1322 respectively. Patient's urinalysis did not reveal any evidence of infection. Patient CTA abdomen pelvis with contrast was reviewed and showed no definitive site of active GI bleeding. Suggestion of wall thickening ascending through the transverse colon likely nondistention colitis likely likely. Colonic diverticulosis without evidence of diverticulitis. There is a moderate size hiatal hernia which is increased from prior study. Patient has a marked L1 vertebral body compression fracture with increased vertebral body height loss and kyphosis compared to prior study uncertain age. Did discuss the results with the family members at bedside and daughter works with neurosurgery at [facility] they would like to take the patient home. Patient has remained hemodynamically stable during her observation period here and has not had any more episodes of coffee-ground emesis. Daughter states thatshe will have her follow-up with [facility] (more content not included)... Normal [facility] UA DIP, URINE (POC)on 2022 BILIRUBIN UA (POCT) Negative Negative [facility] CLARITY UA (POCT) [facility] COLOR UA (POCT) Other [facility] GLUCOSE UA (POCT) Negative Negative mg/dL [facility] Hemoglobin Ql (U) Small Abnormal [facility] KETONE UA (POCT) Trace Negative mg/dL [facility] LEUKOCYTES UA (POCT) Trace Abnormal Negative [facility] NITRITE UA (POCT) Negative Negative [facility] PH UA (POCT) 6.0 4.5 - 8.0 [facility] Protein Ql (U) Negative Negative mg/dL [facility] SPECIFIC GRAVITY UA (POCT) <=1.005 Abnormal 1.005 - 1.030 [facility] UROBILINOGEN UA (POCT) 0.2 E.U./dL Cyn l E.U./dL [facility] ECG COMPLETEon 06-18-2023 Atrial Rate 77 BPM [facility] Calculated P [facility] 48 degrees [facility] Calculated R [facility] 26 degrees [facility] Calculated T [facility] 51 degrees [facility] P-R Interval 158 ms [facility] QRS Duration 84 ms [facility] QT Interval 408 ms [facility] QTC Calculation (Bazett) 461 ms [facility] Ventricular Rate 77 BPM [facility] No Panel Informationon 05-22 [facility] MRI BRAIN WO IVCONon 022 [facility] Absolute lymphocyte counton 11-15-2021 Lymphocytes Auto (Unsp spec) [#/Vol] 1.90 10*3/uL 0.83-4.51 [facility] Work Phone: Basophil percentageon 2021 Basophils/100 WBC (Bld) 0.7 % 0-1 [facility] Work Phone: Eosinophils/100 WBC (Bld) 1.8 % 0-5 [facility] Work Phone: Neutrophils (Bld) [#/Vol] 6.7 10*3/uL 2.0-7.7 [facility] Work Phone: Neutrophils/100 WBC (Bld) 68.8 % 47-70 [facility] Work Phone: WBC (Bld) [#/Vol] 9.7 10*3/uL 4.4-11.0 [facility]: Blood erythrocytes count (nu mber/volume)on 11-15-2021 RBC (Bld) [#/Vol] 3.85 10*6/uL 4.2-5.4 [facility] Work Phone: Blood hemoglobin measurement (mass/volume)on 11-15-2021 Hemoglobin (Bld) [Mass/Vol] 11.7 g/dL 12.0-15.0 [facility] Work Phone: Blood lymphocytes/100 leukoc yteson 11-15-2021 Lymphocytes/100 WBC (Bld) 19.6 % 19-41 [facility] Work Phone: Blood monocytes/100 leukocyt eson 11-15-2021 Monocytes/100 WBC (Bld) 8.8 % 0-10 [facility] Work Phone: Blood platelet mean volumeon 11-15-2021 Platelet mean volume (Bld) [Entitic vol] 10.5 fL 6.2-12.0 [facility] Work Phone: Determination of erythrocyte mean corpuscular volume (MCV)on 11-15-2021 MCV (RBC) [Entitic vol] 91.9 fL 81-99 [facility] Work Phone: Hematocrit Auto (Bld) [Volum e fraction]on 11-15-2021 Hematocrit (Bld) [Volume fraction] 35.4 % 37-47 [facility] Work Phone: Laboratory - Hematology and Cell countson 11-15-2021 Erythrocyte distribution width (RBC) [Entitic vol] 45.7 fL 35.1-43.9 [facility] Work Phone: Erythrocyte distribution width (RBC) [Ratio] 13.5 % 11.6-14.6 [facility] Work Phone: Immature granulocytes/100 WBC (Bld) 0.300 % 0.0-0.9 [facility] Work Phone: Comment on above: IG% - Immature Granu locytes (promyelocytes, myelocytes and metamyelocytes) > 1% indicates that a LEFT SHIFT is Present. MCH (RBC) [Entitic mass] 30.4 pg 27.0-32.0 [facility] Work Phone: Nucleated RBC/100 WBC (Bld) [Ratio] 0 % 0-5 [facility] Work Phone: MCHC Auto (RBC) [Mass/Vol]on 11-15-2021 MCHC (RBC) [Mass/Vol] 33.1 g/dL 32-36 [facility] Work Phone: Platelets bldon 11-15-2021 Platelets (Bld) [#/Vol] 405 10*3/uL 150-450 [facility] Work Phone: Basophil percentageon 2021 Basophil percentage 0-5 SEEN /hpf [facility] Work Phone: Bilirubin Test strip Ql (U)o n 10-31-2021 Bilirubin Ql (U) Negative Negative [facility] Work Phone: Ketones Test strip Ql (U)on 10-31-2021 Ketones Ql (U) Negative Negative [facility] Work Phone: Mucus LM Ql (Urine sed)on Mucus Ql (Urine sed) 0 SEEN /hpf [facility] Work Phone: Nitrite Test strip Ql (U)on 10-31-2021 Nitrite Ql (U) Negative Negative [facility] Work Phone: Protein Test strip Ql (U)on 10-31-2021 Protein Ql (U) Negative Negative [facility] Work Phone: Squamous epithelial cells de tection in urine sediment by light microscopyon 10-31-2021 Epithelial cells.squamous LM Ql (Urine sed) 0 SEEN /hpf [facility] Work Phone: Urine blood detectionon 10-10 RBC Ql (U) Negative Negative [facility] Work Phone: RBC Ql (U) 0 SEEN /hpf [facility] Work Phone: Urine clarityon 10-31-2021 Clarity (U) Clear Clear [facility] Work Phone: Urine color determinationon 10-31-2021 Color (U) Yellow Yellow [facility] Work Phone: Urine glucose detectionon Glucose Ql (U) Normal mg/dl Normal [facility] Work Phone: Urine leukocyte esterase det ection by dipstickon 10-31-2021 Leukocyte esterase Test strip Ql (U) 500 /ul Negative [facility] Work Phone: Urine pHon 10-31-2021 pH (U) 6.5 [pH] [facility] Work Phone: Urine sediment bacteria coun t by microscopy (number/high power field)on 10-31-2021 Bacteria LM.HPF (Urine sed) [#/Area] 0 /[HPF] None Seen [facility] Work Phone: Urine specific gravity measu rementon 10-31-2021 Specific gravity (U) [Rel density] 1.010 [facility] Work Phone: Urobilinogen Auto test strip Ql (U)on 10-31-2021 Urobilinogen Ql (U) Normal mg/dl Normal [facility] Work Phone: XR Calcaneus - right 2 Views on 05-21-2021 * * *Final Report* * * DATE OF EXAM: May 21 2021 12:19PM WOX [id number] - XR CALCANEUS 2V AXIAL/LAT RT / PROCEDURE REASON: Pain of right heel * * * * Physician Interpretation * * * * Indication: Right heel pain Comparison: None Axial and lateral x-rays of the right calcaneus are obtained. There is no acute fracture or dislocation. There is calcaneocuboid joint space narrowing. There is a small plantar calcaneal spur. There is a soft tissue calcification along the plantar aspect of the right calcaneus. Impression: 1. No acute fracture or dislocation. Nut Tapper: [facility] Transcribe Date/Time: May 21 2021 12:25P Dictated by : CATHY PERLA MD This examination was interpreted and the report reviewed and electronically signed by: CATHY PERLA MD on May 21 2021 12:25PM [facility] OF RADIOLOGY Provider, [facility] - 05/21/2021 * * *Final Report* * * DATE OF EXAM: May 21 2021 12:19PM WOX [id number] - XR CALCANEUS 2V AXIAL/LAT RT / PROCEDURE REASON: Pain of right heel * * * * Physician Interpretation * * * * Indication: Right heel pain Comparison: None Axial and lateral x-rays of the right calcaneus are obtained. There is no acute fracture or dislocation. There is calcaneocuboid joint space narrowing. There is a small plantar calcaneal spur. There is a soft tissue calcification along the plantar aspect of the right calcaneus. Impression: 1. No acute fracture or dislocation. Nut Tapper: [facility] Transcribe Date/Time: May 21 2021 12:25P Dictated by : CATHY PERLA MD This examination was interpreted and the report reviewed and electronically signed by: CATHY PERLA MD on May 21 2021 12:25PM EST [facility] Radiology Study observation (narrative) Dominga Mcmahon XR Calcaneus - right 2 Views Ordered By: Cc Provider on 05-21-2021 [facility] Vital Signs Date Time Vital Sign Value Performing Clinician Facility 03-16-2025 12:13-0400 Body height [address] Citlaly العراقي MD Work Phone: [facility] 02-26-2025 18:24-0400 Diastolic blood pressure 68 mm[Hg] Dr. Citlaly العراقي MD Work Phone: 2(988)161-990300 [address] 02-26-2025 18:24-0400 Systolic blood pressure 158 mm[Hg] Dr. Citlaly العراقي MD Work Phone: 4(589)925-899516 [place] [address] 02-26-2025 18:19-0400 Heart rate 87 /min Dr. Citlaly العراقي MD Work Phone: 0(315)391-645416 [place] [address] 02-26-2025 16:33-0400 Body mass index (BMI) [Ratio] 20 kg/m2 Dr. Citlaly العراقي MD Work Phone: 5(407)390-714816 [place] [address] 02-26-2025 16:00-0400 Body temperature 97.6 [degF] Dr. Citlaly العراقي MD Work Phone: 9(395)450-412216 [place] [address] 02-26-2025 16:00-0400 Respiratory rate 16 /min Dr. Citlaly العراقي MD Work Phone: 4(734)036-905816 [place] [address] 02-26-2025 16:00-0400 SaO2% (BldA) [Mass fraction] 97 % Dr. Citlaly العراقي MD Work Phone: 2(082)112-933316 [place] [address] 02-24-2025 15:26-0400 Body height [address] Citlaly العراقي MD Work Phone: 1(593)165-535416 [place] [address] 02-24-2025 15:26-0400 Body weight 56.[address] Citlaly العراقي MD Work Phone: 9(348)477-334016 [place] [address] 02-24-2025 13:44-0400 Body temperature 97.4 [degF] Dr. Citlaly العراقي MD Work Phone: 8(146)080-699316 [place] [address] 02-24-2025 13:44-0400 Diastolic blood pressure 91 mm[Hg] Dr. Citlaly العراقي MD Work Phone: 1(691)342-399116 [place] [address] 02-24-2025 13:44-0400 Heart rate 78 /min Dr. Citlaly العراقي MD Work Phone: 5(716)735-078216 [place] [address] 02-24-2025 13:44-0400 Respiratory rate 16 /min Dr. Citlaly العراقي MD Work Phone: 5(945)647-293216 [place] [address] 02-24-2025 13:44-0400 SaO2% (BldA) [Mass fraction] 94 % Dr. Citlaly العراقي MD Work Phone: 6(023)896-135216 [place] [address] 02-24-2025 13:44-0400 Systolic blood pressure 196 mm[Hg] Dr. Citlaly العراقي MD Work Phone: 0(852)748-997216 [place] [address] 02-24-2025 09:44-0400 Body mass index (BMI) [Ratio] 20.5 kg/m2 Dr. Citlaly العراقي MD Work Phone: 3(015)054-685316 [place] [address] 02-24-2025 09:32-0400 Body height 167.[address] Citlaly العراقي MD Work Phone: 7(770)515-442016 [place] [address] 02-24-2025 09:32-0400 Body weight 57.[address] Citlaly العراقي MD Work Phone: 2(976)008-681716 [place] [address] 01-24-2025 19:27-0400 Body temperature 98.2 [degF] Dr. Citlaly العراقي MD Work Phone: 1(807)911-054516 [place] [address] 01-24-2025 19:27-0400 Diastolic blood pressure 71 mm[Hg] Dr. Citlaly العراقي MD Work Phone: 7(621)448-677116 [place] [address] 01-24-2025 19:27-0400 Heart rate 72 /min Dr. Citlaly العراقي MD Work Phone: 9(814)183-336216 [place] [address] 01-24-2025 19:27-0400 Respiratory rate 18 /min Dr. Citlaly العراقي MD Work Phone: 8(138)226-171916 [place] [address] 01-24-2025 19:27-0400 SaO2% (BldA) [Mass fraction] 96 % Dr. Citlaly العراقي MD Work Phone: 3(606)986-032516 [place] [address] 01-24-2025 19:27-0400 Systolic blood pressure 188 mm[Hg] Dr. Citlaly العراقي MD Work Phone: 0(663)003-114116 [place] [address] 01-24-2025 16:15-0400 Body height 167.[address] Citlaly العراقي MD Work Phone: [facility] 01-24-2025 16:15-0400 Body mass index (BMI) [Ratio] 22 kg/m2 Dr. Citlaly العراقي MD Work Phone: [facility] 01-24-2025 16:15-0400 Body weight [address] Citlaly العراقي MD Work Phone: 4(161)401-131916 [place] [address] 01-04-2025 14:13-0400 Body weight 60.6 kg Citlaly العراقي MD Work Phone: [facility] 01-04-2025 14:13-0400 Diastolic blood pressure 80 mm[Hg] Citlaly العراقي MD Work Phone: [facility] 01-04-2025 14:13-0400 Heart rate 66 /min Citlaly العراقي MD Work Phone: [facility] 01-04-2025 14:13-0400 Respiratory rate 16 /min Citlaly العراقي MD Work Phone: [facility] 01-04-2025 14:13-0400 Systolic blood pressure 142 mm[Hg] Citlaly العراقي MD Work Phone: [facility] 12-18-2024 22:29-0400 Body height 167.[address] Citlaly العراقي MD Work Phone: [facility] 12-18-2024 22:29-0400 Body mass index (BMI) [Ratio] 22.7 kg/m2 Dr. Citlaly العراقي MD Work Phone: 2(704)459-201383 [place] [address] 12-18-2024 22:29-0400 Body weight [address] Citlaly العراقي MD Work Phone: 4(352)597-989383 [place] [address] 12-18-2024 22:28-0400 Body temperature 97 [degF] Dr. Citlaly العراقي MD Work Phone: 4(300)034-629283 [place] [address] 12-18-2024 22:28-0400 Diastolic blood pressure 67 mm[Hg] Dr. Citlaly العراقي MD Work Phone: 1(521)068-217583 [place] [address] 12-18-2024 22:28-0400 Heart rate 79 /min Dr. Citlaly العراقي MD Work Phone: [facility] 12-18-2024 22:28-0400 Respiratory rate 18 /min Dr. Citlaly العراقي MD Work Phone: [facility] 12-18-2024 22:28-0400 SaO2% (BldA) [Mass fraction] 98 % Dr. Citlaly العراقي MD Work Phone: [facility] 12-18-2024 22:28-0400 Systolic blood pressure 157 mm[Hg] Dr. Citlaly العراقي MD Work Phone: [facility] 10-25-2024 15:11-0400 Body weight 62.6 kg Herman Richards MD Work Phone: [facility] 10-25-2024 15:11-0400 Diastolic blood pressure 90 mm[Hg] Herman Richards MD Work Phone: [facility] 10-25-2024 15:11-0400 Systolic blood pressure 158 mm[Hg] Herman Richards MD Work Phone: [facility] 08-12-2024 16:21-0500 Body weight 68.49 kg Citlaly العراقي MD Work Phone: [facility] 08-12-2024 16:21-0500 Diastolic blood pressure 74 mm[Hg] Citlaly العراقي MD Work Phone: [facility] 08-12-2024 16:21-0500 Heart rate 64 /min Citlaly العراقي MD Work Phone: [facility] 08-12-2024 16:21-0500 Respiratory rate 16 /min Citlaly العراقي MD Work Phone: [facility] 08-12-2024 16:21-0500 Systolic blood pressure 122 mm[Hg] Citlaly العراقي MD Work Phone: [facility] 07-16-2024 14:08-0500 Diastolic blood pressure 72 mm[Hg] Citlaly العراقي MD Work Phone: [facility] 07-16-2024 14:08-0500 Systolic blood pressure 148 mm[Hg] Citlaly العراقي MD Work Phone: [facility] 07-16-2024 14:04-0500 Body weight 68.8 kg Citlaly العراقي MD Work Phone: [facility] 07-16-2024 14:04-0500 Heart rate 82 /min Citlaly العراقي MD Work Phone: [facility] 07-16-2024 14:04-0500 Respiratory rate 18 /min Citlaly العراقي MD Work Phone: [facility] 07-14-2024 13:57-0500 Diastolic blood pressure 90 mm[Hg] Rosemarie Queener PA-C Work Phone: [facility] Comment on above: manual BP cuff 07-14-2024 13:57-0500 Systolic blood pressure 176 mm[Hg] Rosemarie Queener PA-C Work Phone: [facility] Comment on above: manual BP cuff 07-14-2024 13:14-0500 Body weight 68.04 kg Rosemarie Queener PA-C Work Phone: [facility] 07-14-2024 13:14-0500 Heart rate 74 /min Rosemarie Queener PA-C Work Phone: [facility] 07-14-2024 13:14-0500 Respiratory rate 14 /min Rosemarie Queener PA-C Work Phone: [facility] 07-14-2024 13:14-0500 SaO2% (BldA) [Mass fraction] 97 % Rosemarie Queener PA-C Work Phone: [facility] 07-07-2024 11:45-0500 Body weight 68.95 kg Herman Richards MD Work Phone: [facility] 07-07-2024 11:45-0500 Diastolic blood pressure 82 mm[Hg] Herman Richards MD Work Phone: [facility] 07-07-2024 11:45-0500 Systolic blood pressure 152 mm[Hg] Herman Richards MD Work Phone: [facility] 04-14-2024 14:17-0400 Body weight 69.3 kg Yun Tannhof [employer] Work Phone: [facility] 04-14-2024 14:17-0400 Diastolic blood pressure 78 mm[Hg] Yun Tannhof [employer] Work Phone: [facility] 04-14-2024 14:17-0400 Heart rate 73 /min Yun Tannhof [employer] Work Phone: [facility] 04-14-2024 14:17-0400 Respiratory rate 16 /min Yun Tannhof [employer] Work Phone: [facility] 04-14-2024 14:17-0400 SaO2% (BldA) [Mass fraction] 98 % Yun Tannhof [employer] Work Phone: [facility] 04-14-2024 14:17-0400 Systolic blood pressure 142 mm[Hg] Yun Tannhof [employer] Work Phone: [facility] 04-14-2024 13:28-0400 Body weight 69.22 kg Rosemarie Queener PA-C Work Phone: [facility] 04-14-2024 13:28-0400 Diastolic blood pressure 76 mm[Hg] Rosemarie Queener PA-C Work Phone: [facility] 04-14-2024 13:28-0400 Heart rate 66 /min Rosemarie Queener PA-C Work Phone: [facility] 04-14-2024 13:28-0400 Respiratory rate 16 /min Rosemarie Queener PA-C Work Phone: [facility] 04-14-2024 13:28-0400 Systolic blood pressure 174 mm[Hg] Rosemarie Queener PA-C Work Phone: [facility] 04-07-2024 11:44-0400 Body weight 69.4 kg Herman Richards MD Work Phone: [facility] 04-07-2024 11:44-0400 Diastolic blood pressure 70 mm[Hg] Herman Richards MD Work Phone: [facility] 04-07-2024 11:44-0400 Systolic blood pressure 142 mm[Hg] Herman Richards MD Work Phone: [facility] 02-09-2024 13:04-0400 Body weight 73.48 kg Yunjuan Hernandezhof [employer] Work Phone: [facility] 02-09-2024 13:04-0400 Diastolic blood pressure 58 mm[Hg] Yun Tannhof [employer] Work Phone: [facility] 02-09-2024 13:04-0400 Heart rate 84 /min Yun Tannhof [employer] Work Phone: [facility] 02-09-2024 13:04-0400 Respiratory rate 16 /min Yun Tannhof [employer] Work Phone: [facility] 02-09-2024 13:04-0400 SaO2% (BldA) [Mass fraction] 96 % Yun Tannhof [employer] Work Phone: [facility] 02-09-2024 13:04-0400 Systolic blood pressure 120 mm[Hg] Yun Tannhof [employer] Work Phone: [facility] 01-22-2024 15:17-0400 Body weight 73.94 kg Herman Richards MD Work Phone: [facility] 01-22-2024 15:17-0400 Diastolic blood pressure 72 mm[Hg] Herman Richards MD Work Phone: [facility] 01-22-2024 15:17-0400 Systolic blood pressure 132 mm[Hg] Herman Richards MD Work Phone: [facility] 12-10-2023 11:18-0400 Body weight 72.94 kg Rosemarie Hensleyer PA-C Work Phone: [facility] 12-10-2023 11:18-0400 Diastolic blood pressure 79 mm[Hg] Rosemraie Hensleyer PA-C Work Phone: [facility] 12-10-2023 11:18-0400 Heart rate 65 /min Rosemarie Hensleyer PA-C Work Phone: [facility] 12-10-2023 11:18-0400 Respiratory rate 18 /min Rosemarie Hensleyer PA-C Work Phone: [facility] 12-10-2023 11:18-0400 SaO2% (BldA) [Mass fraction] 99 % Rosemarie Hensleyer PA-C Work Phone: [facility] 12-10-2023 11:18-0400 Systolic blood pressure 155 mm[Hg] Rosemarie Hensleyer PA-C Work Phone: [facility] 10-31-2023 09:55-0400 Body weight 72.58 kg Yun Hernandezhof [employer] Work Phone: [facility] 10-31-2023 09:55-0400 Diastolic blood pressure 78 mm[Hg] Yun Tannhof [employer] Work Phone: [facility] 10-31-2023 09:55-0400 Heart rate 87 /min Yun Tannhof [employer] Work Phone: [facility] 10-31-2023 09:55-0400 Respiratory rate 16 /min Yun Tannhof [employer] Work Phone: [facility] 10-31-2023 09:55-0400 SaO2% (BldA) [Mass fraction] 97 % Yun Tannhof [employer] Work Phone: [facility] 10-31-2023 09:55-0400 Systolic blood pressure 118 mm[Hg] Yun Tannhof [employer] Work Phone: [facility] 10-27-2023 13:01-0400 Body weight 72.76 kg Tamie Akanksha [employer] Work Phone: [facility] 10-27-2023 13:01-0400 Diastolic blood pressure 80 mm[Hg] Tamie Akanksha [employer] Work Phone: [facility] 10-27-2023 13:01-0400 Systolic blood pressure 150 mm[Hg] Tamie [place] [employer] Work Phone: [facility] 10-21-2023 13:28-0400 Body weight 72.12 kg Herman Richards MD Work Phone: [facility] 10-21-2023 13:28-0400 Diastolic blood pressure 72 mm[Hg] Herman Richards MD Work Phone: [facility] 10-21-2023 13:28-0400 Systolic blood pressure 150 mm[Hg] Herman Richards MD Work Phone: [facility] 07-22-2023 13:18-0500 Body weight 71.22 kg Herman Richards MD Work Phone: [facility] 07-22-2023 13:18-0500 Diastolic blood pressure 62 mm[Hg] Herman Richards MD Work Phone: [facility] 07-22-2023 13:18-0500 Systolic blood pressure 120 mm[Hg] Herman Richards MD Work Phone: [facility] 06-25-2023 09:22-0500 Body temperature 97.2 [degF] Madison Stovall [employer] Work Phone: [facility] [facility] 06-25-2023 09:22-0500 Body weight 73.03 kg Madison Stovall [employer].ANALYST COMP[employer]ITIVE INTELLIGENCE Work Phone: [facility] 06-25-2023 09:22-0500 Diastolic blood pressure 75 mm[Hg] Madison Praisler-Wood [employer].ANALYST COMPETITIVE INTELLIGENCE Work Phone: [facility] 06-25-2023 09:22-0500 Heart rate 80 /min Madison Praisler-Wood [employer].ANALYST COMPETITIVE INTELLIGENCE Work Phone: [facility] 06-25-2023 09:22-0500 Respiratory rate 18 /min Madison Praisler-Wood [employer].ANALYST COMPETITIVE INTELLIGENCE Work Phone: [facility] 06-25-2023 09:22-0500 SaO2% (BldA) [Mass fraction] 95 % Madison Praisler-Wood [employer].ANALYST COMPETITIVE INTELLIGENCE Work Phone: [facility] 06-25-2023 09:22-0500 Systolic blood pressure 134 mm[Hg] Madison Praisler-Wood [employer].ANALYST COMPETITIVE INTELLIGENCE Work Phone: [facility] 06-17-2023 13:46-0500 Body weight 73.75 kg Rosemarie Queener PA-C Work Phone: [facility] 06-17-2023 13:46-0500 Diastolic blood pressure 75 mm[Hg] Rosemarie Queener PA-C Work Phone: [facility] 06-17-2023 13:46-0500 Heart rate 77 /min Rosemarie Queener PA-C Work Phone: [facility] 06-17-2023 13:46-0500 Respiratory rate 16 /min Rosemarie Queener PA-C Work Phone: [facility] 06-17-2023 13:46-0500 SaO2% (BldA) [Mass fraction] 96 % Rosemarie Queener PA-C Work Phone: [facility] 06-17-2023 13:46-0500 Systolic blood pressure 156 mm[Hg] Rosemarie Queener PA-C Work Phone: [facility] 05-20-2023 11:13-0400 Body weight 74.39 kg Herman Richards MD Work Phone: [facility] 05-20-2023 11:13-0400 Diastolic blood pressure 82 mm[Hg] Herman Richards MD Work Phone: [facility] 05-20-2023 11:13-0400 Systolic blood pressure 144 mm[Hg] Hreman Richards MD Work Phone: [facility] 04-22-2023 13:35-0400 Body weight 72.39 kg Rosemarie Queener PA-C Work Phone: [facility] 04-22-2023 13:35-0400 Diastolic blood pressure 75 mm[Hg] Rosemarie Queener PA-C Work Phone: [facility] 04-22-2023 13:35-0400 Heart rate 70 /min Rosemarie Queener PA-C Work Phone: [facility] 04-22-2023 13:35-0400 Respiratory rate 16 /min Rosemarie Queener PA-C Work Phone: [facility] 04-22-2023 13:35-0400 SaO2% (BldA) [Mass fraction] 96 % Rosemarie Queener PA-C Work Phone: [facility] 04-22-2023 13:35-0400 Systolic blood pressure 157 mm[Hg] Rosemarie Queener PA-C Work Phone: [facility] 04-18-2023 09:06-0400 Body weight 72.58 kg Herman Richards MD Work Phone: [facility] 04-18-2023 09:06-0400 Diastolic blood pressure 60 mm[Hg] Herman Richards MD Work Phone: [facility] 04-18-2023 09:06-0400 Systolic blood pressure 110 mm[Hg] Herman Richards MD Work Phone: [facility] 02-13-2023 13:36-0400 Body weight 71.22 kg Herman Richards MD Work Phone: [facility] 02-13-2023 13:36-0400 Diastolic blood pressure 72 mm[Hg] Herman Richards MD Work Phone: [facility] 02-13-2023 13:36-0400 Systolic blood pressure 142 mm[Hg] Herman Richards MD Work Phone: [facility] 11-05-2022 13:28-0400 Body weight 70.72 kg Herman Richards MD Work Phone: [facility] 11-05-2022 13:28-0400 Diastolic blood pressure 78 mm[Hg] Herman Richards MD Work Phone: [facility] 11-05-2022 13:28-0400 Systolic blood pressure 120 mm[Hg] Herman Richards MD Work Phone: [facility] 08-07-2022 10:52-0500 Body weight 70.31 kg Herman Richards MD Work Phone: [facility] 08-07-2022 10:52-0500 Diastolic blood pressure 80 mm[Hg] Herman Richards MD Work Phone: [facility] 08-07-2022 10:52-0500 Systolic blood pressure 148 mm[Hg] Herman Richards MD Work Phone: [facility] 06-28-2022 10:47-0500 Body weight 71.31 kg Citlaly العراقي MD Work Phone: [facility] 06-28-2022 10:47-0500 Diastolic blood pressure 68 mm[Hg] Citlaly العراقي MD Work Phone: [facility] 06-28-2022 10:47-0500 Heart rate 78 /min Citlaly العراقي MD Work Phone: [facility] 06-28-2022 10:47-0500 Respiratory rate 16 /min Citlaly العراقي MD Work Phone: [facility] 06-28-2022 10:47-0500 SaO2% (BldA) [Mass fraction] 95 % Citlaly العراقي MD Work Phone: [facility] 06-28-2022 10:47-0500 Systolic blood pressure 126 mm[Hg] Citlaly العراقي MD Work Phone: [facility] 05-07-2022 10:51-0400 Body weight 70.31 kg Herman Richards MD Work Phone: [facility] 05-07-2022 10:51-0400 Diastolic blood pressure 70 mm[Hg] Herman Richards MD Work Phone: [facility] 05-07-2022 10:51-0400 Systolic blood pressure 154 mm[Hg] Herman Richards MD Work Phone: [facility] 02-04-2022 10:54-0400 Body weight 70.31 kg Herman Richards MD Work Phone: [facility] 02-04-2022 10:54-0400 Diastolic blood pressure 70 mm[Hg] Herman Richards MD Work Phone: [facility] 02-04-2022 10:54-0400 Systolic blood pressure 152 mm[Hg] Herman Richards MD Work Phone: [facility] 12-24-2021 15:39-0400 Body weight 73.26 kg Citlaly العراقي MD Work Phone: [facility] 12-24-2021 15:39-0400 Diastolic blood pressure 80 mm[Hg] Citlaly العراقي MD Work Phone: [facility] 12-24-2021 15:39-0400 Heart rate 72 /min Citlaly العراقي MD Work Phone: [facility] 12-24-2021 15:39-0400 Respiratory rate 14 /min Citlaly العراقي MD Work Phone: [facility] 12-24-2021 15:39-0400 Systolic blood pressure 160 mm[Hg] Citlaly العراقي MD Work Phone: [facility] 11-15-2021 14:24-0400 Diastolic blood pressure 80 mm[Hg] Citlaly العراقي MD Work Phone: [facility] 11-15-2021 14:24-0400 Systolic blood pressure 154 mm[Hg] Citlaly العراقي MD Work Phone: [facility] 11-15-2021 14:21-0400 Body weight 72.94 kg Citlaly العراقي MD Work Phone: [facility] 11-15-2021 14:21-0400 Heart rate 78 /min Citlaly العراقي MD Work Phone: [facility] 11-15-2021 14:21-0400 Respiratory rate 16 /min Citlaly العراقي MD Work Phone: [facility] 11-15-2021 14:21-0400 SaO2% (BldA) [Mass fraction] 96 % Citlaly العراقي MD Work Phone: [facility] 10-31-2021 09:17-0400 Respiratory rate 16 /min [facility] Work Phone: 10-31-2021 06:53-0400 Body height 152.4 cm [facility] Work Phone: 10-31-2021 06:53-0400 Body mass index (BMI) [Ratio] 32.9 kg/m2 [facility] Work Phone: 10-31-2021 06:53-0400 Body temperature 96.9 [degF] [facility] Work Phone: 10-31-2021 06:53-0400 Body weight 76.5 kg [facility] Work Phone: 10-31-2021 06:53-0400 Diastolic blood pressure 58 mm[Hg] [facility] Work Phone: 10-31-2021 06:53-0400 Heart rate 61 /min [facility] Work Phone: 10-31-2021 06:53-0400 SaO2% (BldA) [Mass fraction] 100 % [facility] Work Phone: 10-31-2021 06:53-0400 Systolic blood pressure 198 mm[Hg] [facility] Work Phone: 10-16-2021 22:54-0500 Body mass index (BMI) [Ratio] 28.8 kg/m2 [facility] Work Phone: 10-16-2021 22:54-0500 Body temperature 97.8 [degF] [facility] Work Phone: 10-16-2021 22:54-0500 Body weight 76.2 kg [facility] Work Phone: 10-16-2021 22:54-0500 Diastolic blood pressure 153 mm[Hg] [facility] Work Phone: 10-16-2021 22:54-0500 Heart rate 71 /min [facility] Work Phone: 10-16-2021 22:54-0500 Respiratory rate 17 /min [facility] Work Phone: 10-16-2021 22:54-0500 SaO2% (BldA) [Mass fraction] 97 % [facility] Work Phone: 10-16-2021 22:54-0500 Systolic blood pressure 201 mm[Hg] [facility] Work Phone: Encounters Encounter Date Encounter Type Care Provider Facility Start: 04-19-2025 End: 04-19-2025 ambulatory Dionicio Fong Facility:[facility] Start: 04-18-2025 End: 04-18-2025 ambulatory Citlaly العراقي Facility:[facility] Start: 04-13-2025 End: 04-13-2025 ambulatory Julia Mtz NP Facility:[facility] Start: 04-05-2025 ambulatory Dionicio torrez OLS Facility:[facility] Start: 04-05-2025 Registered Referred Dionicio Gilbert Start: 03-28-2025 ambulatory Dionicio torrez OLS Facility:[facility] Start: 03-28-2025 Registered Referred Dionicio Gilbert Start: 03-22-2025 ambulatory Citlaly Cuevas y:[facility] Start: 03-22-2025 Registered Referred Dionicio Gilbert Start: 03-21-2025 End: 03-21-2025 Patient encounter procedure Cathy GIRON -[facility] Work Phone: Start: 03-21-2025 End: 03-21-[address] Citlaly العراقي MD Work Phone: [facility] Start: 03-16-2025 End: 03-16-[address] Citlaly العراقي MD Work Phone: [facility] Start: 03-16-2025 End: 03-16-2025 Patient encounter procedure Julia Mtz NP- -[facility] Work Phone: Start: 03-14-2025 ambulatory Gunjandania torrez OLS Facility:[facility] Start: 03-14-2025 Registered Referred Dionicio Gilbert Start: 03-10-2025 End: 03-10-[address] Citlaly العراقي MD Work Phone: [facility] Start: 03-10-2025 End: 03-10-2025 Patient encounter procedure Julia Mtz NP- -[facility] Work Phone: Start: 03-07-2025 End: 03-07-2025 Patient encounter procedure Julia Mtz NP- -[facility] Work Phone: Start: 03-07-2025 End: 03-07-[address] Citlaly العراقي MD Work Phone: [facility] Start: 03-07-2025 Registered Referred Dionicio Gilbert Start: 03-02-2025 ambulatory Dionicio HANKS Facility:[facility] Start: 03-02-2025 Registered Referred Dionicio Gilbert Start: 03-01-2025 End: 03-01-[address] Citlaly العراقي MD Work Phone: [facility] Start: 03-01-2025 End: 03-01-[address] Dionicio Fong MD -[facility] Work Phone: Start: 02-28-2025 End: 02-28-2025 Patient encounter procedure Julia Mtz WHEELAGE CLERK-C -[facility] Work Phone: Start: 02-28-2025 End: 02-28-2025 Telephone encounter Citlaly العراقي MD Work Phone: [facility] Comment on above: Patient Question Start: 02-28-2025 End: 02-28-[address] Citlaly العراقي MD Work Phone: [facility] Start: 02-28-2025 Registered Referred Dionicio [employer] [facility] Start: 02-26-2025 Non-patient / Non-visit Dr. Vimal RICH -[facility] Work Phone: Start: 02-25-2025 ambulatory Citlaly Cuevas y:[facility] Start: 02-25-2025 Non-patient / Non-visit Dr. Vimal RICH -[facility] Work Phone: Start: 02-24-2025 Non-patient / Non-visit Dr. Vimal RICH -[facility] Work Phone: Start: 02-24-2025 ambulatory Fabrice Trevizo Facility:[facility] Start: 02-24-2025 End: 02-26-2025 Evaluation and management of inpatient Dr. Tabitha Whitfield MD -Progressive Care Unit Work Phone: Start: 02-24-2025 Emergency department patient visit JARED JAMES Facility:[facility] Start: 02-23-2025 End: 02-23-2025 ambulatory CITLALY العراقي Facility:[facility] Start: 02-03-2025 End: 02-03-2025 Refill Citlaly العراقي MD Work Phone: [facility] [place] Comment on above: Refill Request Start: 01-24-2025 End: 01-24-2025 Emergency department patient visit Dr. Citlaly العراقي MD Work Phone: -Emergency Department Work Phone: Start: 01-10-2025 End: 03-12-2025 Follow-up encounter Citlaly العراقي MD Work Phone: [facility] Start: 01-07-2025 End: 01-07-2025 Telephone encounter Citlaly العراقي MD Work Phone: [facility] Comment on above: Transition Of Care Start: 01-04-2025 End: 01-04-2025 Transitional care manage srvc 14 day discharge Citlaly العراقي MD Work Phone: [facility] [place] Comment on above: Hospital discharge f ollow-up (Primary Dx); Hypertension, unspecified type; Cerebral infarction, unspecified mechanism (HCC); Hypokalemia; Essential tremor; Dementia without behavioral disturbance (HCC); Chronic midline low back pain without sciatica Start: 01-04-2025 End: 01-04-2025 ambulatory CITLALY العراقي Facility:[facility] Start: 12-27-2024 End: 12-27-2024 Telephone encounter Citlaly العراقي MD Work Phone: [facility] Comment on above: Transition Of Care Start: 12-23-2024 End: 12-24-2024 ambulatory Citlaly العراقي MD Work Phone: [facility] Comment on above: New meds post stroke Transition Of Care Updated appt Start: 12-21-2024 ambulatory ANALI RICKS Facility:[facility] Start: 12-21-2024 End: 12-21-2024 Subsequent hospital visit by physician Ekg/Holter/Event Monitor [facility] Comment on above: Arrived Start: 12-18-2024 End: 12-21-2024 Evaluation and management of inpatient CITLALY العراقي Facility:[facility] Start: 12-18-2024 End: 12-18-2024 Emergency department patient visit Dr. Citlaly العراقي MD Work Phone: -Emergency Department Work Phone: Start: 12-18-2024 End: 12-19-2024 ambulatory Howie Leonardo APRN.ANALYST COMPETITIVE INTELLIGENCE Work Phone: Critical Care Start: 12-18-2024 Emergency department patient visit [place] Facility:[facility] Start: 12-10-2024 End: 12-10-2024 Refill Rosemarie Spears PA-C Work Phone: Neurology Comment on above: Refill Request Start: 10-25-2024 End: 10-25-2024 Patient encounter procedure Herman Richards MD Work Phone: OB/Gynecology Comment on above: Cystocele with prola pse (Primary Dx) Start: 10-25-2024 End: 10-25-2024 ambulatory HERMAN RICHARDS Facility:[facility] Start: 09-30-2024 End: 10-04-2024 Telephone encounter Herman Richards MD Work Phone: OB/Gynecology Comment on above: Patient Update Start: 08-17-2024 End: 08-17-2024 Telephone encounter Citlaly العراقي MD Work Phone: [facility] [place] Comment on above: Results Start: 08-13-2024 End: 08-13-2024 Patient encounter procedure No Pcp [employer] [facility] Start: 08-13-2024 End: 08-13-2024 ambulatory No Pcp [employer] [facility] Start: 08-12-2024 End: 08-12-2024 ambulatory CITLALY العراقي Facility:[facility] Start: 08-12-2024 End: 08-12-2024 Patient encounter procedure Citlaly العراقي MD Work Phone: [facility] Comment on above: Chronic midline low back pain without sciatica (Primary Dx); Chronic insomnia; Stress incontinence of urine; Major depressive disorder, recurrent, in full remission (HCC); Mixed hyperlipidemia; Irritable bowel syndrome, unspecified type; Generalized anxiety disorder; Dementia without behavioral disturbance (HCC); Fall, initial encounter Start: 08-06-2024 End: 08-06-2024 Refill Citlaly العراقي MD Work Phone: [facility] [place] Comment on above: Refill Request Start: 07-27-2024 End: 07-27-2024 Telephone encounter Citlaly العراقي MD Work Phone: [facility] Comment on above: Fall Start: 07-16-2024 End: 07-16-2024 ambulatory CITLALY العراقي Facility:[facility] Start: 07-16-2024 End: 07-16-2024 Patient encounter procedure Citlaly العراقي MD Work Phone: [facility] [place] Comment on above: Hypertension, unspec ified type (Primary Dx); Major depressive disorder, recurrent, in full remission (HCC); Dementia without behavioral disturbance (HCC) Start: 07-14-2024 End: 07-14-2024 ambulatory ROSEMARIE SPEARS Facility:[facility] Start: 07-14-2024 End: 07-14-2024 Patient encounter procedure Rosemarie Spears PA-C Work Phone: Neurology Comment on above: Dementia without beh avioral disturbance, psychotic disturbance, mood disturbance, or anxiety, unspecified dementia severity, unspecified dementia type (HCC) (Primary Dx); Memory change Start: 07-07-2024 End: 07-07-2024 ambulatory HERMAN RICHARDS Facility:[facility] Start: 07-07-2024 End: 07-07-2024 Patient encounter procedure Herman Richards MD Work Phone: OB/Gynecology Comment on above: Cystocele with prola pse (Primary Dx); Pessary maintenance Start: 06-04-2024 End: 06-04-2024 Refill Citlaly العراقي MD Work Phone: [facility] Comment on above: Refill Request Start: 05-28-2024 End: 05-28-2024 Refill Citlaly العراقي MD Work Phone: [facility] Comment on above: Refill Request Start: 04-14-2024 End: 04-14-2024 ambulatory YUN KATELYNN [facility] Facility:[facility] Start: 04-14-2024 End: 04-14-2024 Patient encounter procedure Rosemarie Spears PA-C Work Phone: Neurology Comment on above: Dementia without beh avioral disturbance, psychotic disturbance, mood disturbance, or anxiety, unspecified dementia severity, unspecified dementia type (HCC) (Primary Dx); Lacunar infarction (HCC); Memory loss; Memory change Elevated blood press ure reading without diagnosis of hypertension (Primary Dx); Dementia without behavioral disturbance (HCC); Generalized anxiety disorder; Major depressive disorder, recurrent, in full remission (HCC); Agitation; Gastrointestinal hemorrhage, unspecified gastrointestinal hemorrhage type; Chronic insomnia; Prediabetes; Mixed hyperlipidemia; Encounter for immunization Start: 04-14-2024 End: 04-14-2024 ambulatory ROSEMARIE SPEARS Facility:[facility] Start: 04-07-2024 End: 04-07-2024 ambulatory HERMAN RICHARDS Facility:[facility] Start: 04-07-2024 End: 04-07-2024 Patient encounter procedure Herman Richards MD Work Phone: OB/Gynecology Comment on above: Cervical prolapse (P rimary Dx); Cystocele with prolapse; Pessary maintenance Start: 04-02-2024 End: 04-02-2024 Telephone encounter Robyn Abraham MD Work Phone: OB/Gynecology Comment on above: Pessary fell out Start: 03-12-2024 End: 03-12-2024 ambulatory CITLALY العراقي Facility:[facility] Start: 03-12-2024 End: 03-12-2024 Patient encounter procedure Citlaly العراقي MD Work Phone: [facility] [place] Comment on above: Compression fracture of L1 vertebra with routine healing, subsequent encounter (Primary Dx); Dementia without behavioral disturbance (HCC); Generalized anxiety disorder; Gastrointestinal hemorrhage, unspecified gastrointestinal hemorrhage type; Chronic insomnia Start: 03-03-2024 Refill Rosemarie pedroza PA-C Work Phone: Neurology Comment on above: Refill Request Start: 03-01-2024 Telephone encounter Citlaly pierce MD Work Phone: [facility] Comment on above: Patient Question Start: 02-18-2024 Telephone encounter Yun lyn [employer]ST [employer]IVE [employer]TELLIGENCE Work Phone: [facility] [place] Comment on above: Patient Update Start: 02-09-2024 End: 02-09-2024 Patient encounter procedure Yun Jackson [employer].ANALYST [employer]IVE INTELLIGENCE Work Phone: [facility] Comment on above: Prediabetes (Primary Dx); Agitation; Generalized anxiety disorder; Major depressive disorder, recurrent, in full remission (HCC); Dementia without behavioral disturbance (HCC); Mixed hyperlipidemia Start: 02-06-2024 Refill Herman Richards MD Work Phone: OB/Gynecology Comment on above: Refill Request Start: 01-22-2024 End: 01-22-2024 Patient encounter procedure Herman Richards MD Work Phone: OB/Gynecology Comment on above: Cystocele with prola pse (Primary Dx); Pessary maintenance Start: 12-10-2023 End: 12-10-2023 Patient encounter procedure Rosemarie Spears PA-C Work Phone: Neurology Comment on above: Dementia without beh avioral disturbance, psychotic disturbance, mood disturbance, or anxiety, unspecified dementia severity, unspecified dementia type (HCC) (Primary Dx); Lacunar infarction (HCC) Start: 11-19-2023 Refill Rosemarie pedroza PA-C Work Phone: Neurology Comment on above: Refill Request Start: 10-31-2023 End: 10-31-2023 Patient encounter procedure Yun Jackson APRN.ANALYST COMP[employer]IVE INTELLIGENCE Work Phone: [facility] Comment on above: Prediabetes (Primary Dx); Generalized anxiety disorder; Major depressive disorder, recurrent, in full remission (HCC); Dementia without behavioral disturbance (HCC); Mixed hyperlipidemia Start: 10-27-2023 End: 10-27-2023 Patient encounter procedure Tamie Vale APRN.ANALYST COMP[employer]IVE [employer]TELLIGENCE Work Phone: OB/Gynecology Comment on above: Presence of pessary (Primary Dx) Start: 10-21-2023 End: 10-21-2023 Patient encounter procedure Herman Richards MD Work Phone: OB/Gynecology Comment on above: Female genital prola pse, unspecified type (Primary Dx); Cystocele with prolapse; Pessary maintenance Start: 07-22-2023 End: 07-22-2023 Patient encounter procedure Herman Richards MD Work Phone: OB/Gynecology Comment on above: Cystocele with prola pse (Primary Dx); Pessary maintenance Start: 06-26-2023 Telephone encounter Madison Stovall APRN.ANALYST COMP[employer]IVE INTELLIGENCE Work Phone: [facility] Comment on above: Results Start: 06-25-2023 End: 06-25-2023 Patient encounter procedure Madison Stovall APRN.ANALYST COMP[employer]IVE [employer]TELLIGENCE Work Phone: [facility] Comment on above: Generalized weakness (Primary Dx); Chills; Acute cystitis with hematuria Start: 06-17-2023 End: 06-17-2023 Patient encounter procedure Rosemarie Spears PA-C Work Phone: Neurology Comment on above: Memory loss (Primary Dx); Dementia without behavioral disturbance, psychotic disturbance, mood disturbance, or anxiety, unspecified dementia severity, unspecified dementia type (HCC); Lacunar infarction (HCC) Start: 05-23-2023 Telephone encounter Rosemarie wen PA-C Work Phone: Neurology Comment on above: Results Start: 05-22-2023 End: 05-22-2023 Subsequent hospital visit by physician [employer] [facility] (I-Stat/1.5t) Work Phone: Radiology Comment on above: Memory change [R41.3 ] Start: 05-20-2023 End: 05-20-2023 Patient encounter procedure Herman Richards MD Work Phone: OB/Gynecology Comment on above: Cystocele with prola pse (Primary Dx); Pessary maintenance Start: 05-05-2023 Refill Tamie Vale [employer].ANALYST [employer]IVE [employer]TELLIGENCE Work Phone: OB/Gynecology Comment on above: Refill Request Start: 04-22-2023 End: 04-22-2023 Patient encounter procedure Rosemarie Spears PA-C Work Phone: Neurology Comment on above: Memory loss (Primary Dx); Memory change; Hearing loss, unspecified hearing loss type, unspecified laterality Start: 04-18-2023 End: 04-18-2023 Patient encounter procedure Herman Richards MD Work Phone: OB/Gynecology Comment on above: PMB (postmenopausal bleeding) (Primary Dx); Vaginal inflammation from pessary, initial encounter (HCC); Pessary maintenance; Female genital prolapse, unspecified type Start: 04-11-2023 Telephone encounter Herman Richards MD Work Phone: OB/Gynecology Comment on above: AUB Start: 04-10-2023 Telephone encounter Yun lyn [employer].ANALYST [employer]ITIVE [employer]TELLIGENCE Work Phone: [facility] Comment on above: Results (Labs ) Start: 02-13-2023 End: 02-13-2023 Patient encounter procedure Herman Richards MD Work Phone: OB/Gynecology Comment on above: Cystocele with prola pse (Primary Dx); Female genital prolapse, unspecified type; Vaginal inflammation from pessary, initial encounter (HCC); Pessary maintenance Start: 11-14-2022 Refill Herman Richards MD Work Phone: OB/Gynecology Comment on above: Refill Request Start: 11-05-2022 Telephone encounter Herman Richards ([facility]) Work Phone: OB/Gynecology Comment on above: Appointment (Patient declined to have consult with 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 ) Start: 11-05-2022 End: 11-05-2022 Patient encounter procedure Herman Richards MD Work Phone: OB/Gynecology Comment on above: Female genital prola pse, unspecified type (Primary Dx); Pessary maintenance Start: 08-07-2022 End: 08-07-2022 Patient encounter procedure Herman Richards MD Work Phone: OB/Gynecology Comment on above: Female genital prola pse, unspecified type (Primary Dx); Pessary maintenance Start: 07-31-2022 Telephone encounter Citlaly pierce MD Work Phone: Family [facility] Comment on above: Results - Mri Start: 07-25-2022 End: 07-25-2022 Subsequent hospital visit by physician Mri [facility] (I-Stat/1.5t) Work Phone: Radiology Comment on above: Cognitive impairment , mild, so stated [G31.84] Start: 07-01-2022 Telephone encounter Citlaly pierce MD Work Phone: [facility] Comment on above: Results Start: 06-28-2022 End: 06-28-2022 Patient encounter procedure Citlaly العراقي MD Work Phone: [facility] Comment on above: GENERALIZED ANXIETY DIS (Primary Dx); Mixed hyperlipidemia; Irritable bowel syndrome, unspecified type; Major depressive disorder, recurrent, in full remission (HCC); Generalized anxiety disorder; Osteoporosis, unspecified; Need for influenza vaccination; Memory change; Cognitive impairment, mild, so stated Start: 05-07-2022 End: 05-07-2022 Patient encounter procedure Herman Richards MD Work Phone: OB/Gynecology Comment on above: Female genital prola pse, unspecified type (Primary Dx); Pessary maintenance Start: 02-04-2022 End: 02-04-2022 Patient encounter procedure Herman Richards MD Work Phone: OB/Gynecology Comment on above: Pessary maintenance (Primary Dx); Female genital prolapse, unspecified type Start: 01-21-2022 Refill Herman Richards MD Work Phone: OB/Gynecology Comment on above: Refill Request Start: 01-09-2022 End: 01-09-2022 ambulatory Annabel Moore PT Work Phone: [facility] Comment on above: Acute midline low ba ck pain without sciatica (Primary Dx) Start: 01-02-2022 End: 01-02-2022 ambulatory Annabel Moore PT Work Phone: [facility] Comment on above: Acute midline low ba ck pain without sciatica (Primary Dx) Start: 12-24-2021 End: 12-24-2021 Patient encounter procedure Citlaly العراقي MD Work Phone: [facility] Comment on above: Mixed hyperlipidemia (Primary Dx); Acute midline low back pain without sciatica; Major depressive disorder, recurrent, in full remission (HCC); Generalized anxiety disorder Start: 12-04-2021 End: 12-04-2021 ambulatory Annabel Moore PT Work Phone: [facility] Comment on above: Acute midline low ba ck pain without sciatica (Primary Dx) Start: 11-20-2021 Telephone encounter Citlaly pierce MD Work Phone: [facility] Comment on above: Results Start: 11-20-2021 End: 11-20-2021 ambulatory Annabel Moore PT Work Phone: [facility] Comment on above: Acute midline low ba ck pain without sciatica (Primary Dx) Start: 11-15-2021 End: 11-15-2021 Patient encounter procedure [facility] Start: 11-15-2021 End: 11-15-2021 Patient encounter procedure Citlaly العراقي MD Work Phone: [facility] Comment on above: Lower abdominal pain (Primary Dx); Loose stools; Nausea and vomiting, unspecified vomiting type; Fatigue, unspecified type; Decreased appetite; Weight loss Start: 11-07-2021 End: 11-07-2021 ambulatory Annabel Moore PT Work Phone: [facility] Comment on above: Acute midline low ba ck pain without sciatica Start: 10-31-2021 End: 10-31-2021 Emergency department patient visit [facility] Start: 10-16-2021 End: 10-17-2021 Emergency department patient visit [facility] Start: 05-21-2021 End: 05-21-2021 Subsequent hospital visit by physician Xr [facility] Work Phone: Radiology Comment on above: Pain of right heel [ M79.671] Procedures Date Procedure Procedure Detail Performing Clinician Start: 03-14-2025 Urnls dip stick/tabl et reagent auto microscopy Dr. Citlaly العراقي MD Work Phone: Start: 03-14-[address] Citlaly العراقي MD Work Phone: Start: 02-26-[address] Citlaly العراقي MD Work Phone: Start: 02-25-[address] Citlaly machado MD Work Phone: Start: 02-25-2025 MRI of brain without contrast Dr. Citlaly العراقي MD Work Phone: Start: 02-25-2025 Serum inorganic phos phate measurement Dr. Citlaly العراقي MD Work Phone: Start: 02-24-2025 CT angiography of he ad and neck Dr. Citlaly العراقي MD Work Phone: Start: 02-24-2025 CT of head without contrast Dr. Citlaly العراقي MD Work Phone: Start: 02-24-[address] Citlaly العراقي MD Work Phone: Start: 01-24-2025 Plain chest X-ray Dr. Trent العراقي MD Work Phone: Start: 01-24-[address] Citlaly العراقي MD Work Phone: Start: 01-24-2025 CT of head without contrast Dr. Citlaly العراقي MD Work Phone: Start: 01-24-2025 CT angiography of he ad and neck Dr. Citlaly العراقي MD Work Phone: Start: 12-18-2024 CT angiography of he ad and neck Dr. Citlaly العراقي MD Work Phone: Start: 12-18-2024 End: 12-18-2024 CT of head without contrast Dr. Citlaly العراقي MD Work Phone: Start: 12-18-[address] Citlaly العراقي MD Work Phone: Start: 06-25-2023 Urnls dip stick/tabl et rgnt auto w/o microscopy Madison Stovall APRN.[employer] Work Phone: Start: 06-17-2023 Ecg routine ecg w/le ast 12 lds i&r only [facility] Provider Start: 05-22-2023 Mri brain brain stem w/o contrast material Rosemarie Spears PA-C Work Phone: Start: 05-22-2023 3d rendering w/interp&postproc diff work station Rosemarie Spears PA-C Work Phone: Start: 07-25-2022 Mri brain brain stem w/o contrast material Citlaly العراقي MD Work Phone: Start: 06-28-2022 INFLUENZA SEASONAL QUADRIVALENT HIGH DOSE AGE 65+ Citlaly العراقي MD Work Phone: Start: 10-31-2021 CT of abdomen and pe lvis without contrast Start: 10-17-2021 X-ray of lumbar spin e, two or three views Start: 05-21-2021 Radex calcaneus mini mum 2 views Leighton López MD Work Phone: Plan of Treatment Date Care Activity Detail Author Start: 02-24-2028 Diabetes Screening Diabetes Screening [facility] Start: 12-21-2027 Diabetes Screening Diabetes Screening [facility] Start: 02-01-2027 Diabetes Screening Diabetes Screening [facility] Start: 08-27-2026 Diabetes Screening Diabetes Screening [facility] Start: 04-07-2026 DIABETES SCREEN DIABETES SCREEN [facility] Start: 04-07-2026 Diabetes Screening Diabetes Screening [facility] Start: 01-04-2026 Annual PCP Team Chronic Disease Visit Annual PCP Team Chronic Disease Visit [facility] Start: 06-13-2025 DIABETES SCREEN DIABETES SCREEN [facility] Start: 04-20-2025 End: 04-20-2025 Patient encounter procedure 04/20/2025 3:00 PM EDT Office Visit Neurology [address] [place] [address] Rosemarie Spears PA-C [address] [place] [address] Dementia 5mo f/u- BARNEY 07/14/25 no changes Neurology Comment on above: Dementia 5mo f/u- BARNEY 07/14/25 no changes Start: 04-11-2025 Influenza vaccination Influenza Vaccine (#1) [facility] Start: 03-06-2025 End: 06-05-2025 CBC W Auto Differential panel - Blood COMPLETE BLOOD COUNT AND DIFFERENTIAL Lab Routine Hypertension, unspecified type Cerebral infarction, unspecified mechanism (HCC) Expected: 03/06/2025 (Approximate), Expires: 06/05/2025 [facility] Comment on above: Expected: 03/06/2025 (Approximate), Expi res: 06/05/2025 Start: 03-06-2025 End: 06-05-2025 Comprehensive metabolic 2000 panel - Serum or Plasma COMPREHENSIVE METABOLIC PANEL Lab Routine Hypertension, unspecified type Cerebral infarction, unspecified mechanism (HCC) Hypokalemia Expected: 03/06/2025 (Approximate), Expires: 06/05/2025 [facility] Comment on above: Expected: 03/06/2025 (Approximate), Expi res: 06/05/2025 Start: 03-06-2025 End: 06-05-2025 Lipid 1996 panel - Serum or Plasma LIPID PANEL, FASTING Lab Routine Hypertension, unspecified type Cerebral infarction, unspecified mechanism (HCC) Expected: 03/06/2025 (Approximate), Expires: 06/05/2025 [facility] Work Phone: Comment on above: Expected: 03/06/2025 (Approximate), Expi res: 06/05/2025 Start: 03-01-2025 End: 03-01-2025 Patient encounter procedure 03/01/2025 3:40 PM EDT Office Visit [facility] [place] [address] [facility] [place] [address] Citlaly العراقي MD [address] [place] [address] 6 month follow up [facility] Comment on above: 6 month follow up Start: 02-26-2025 Patient discharge [facility] Start: 02-25-2025 Implementation of planned interventions [facility] Start: 02-25-2025 Notification of physician [facility] Start: 02-25-2025 Speech therapy assessment [facility] Start: 02-25-2025 Serum inorganic phosphate measurement [facility] Start: 02-24-2025 Following clinical pathway protocol [facility] Start: 02-24-2025 Ambulation without limitation [facility] Start: 02-24-2025 Aspiration precautions [facility] Start: 02-24-2025 Assessment of risk of venous thromboembolism [facility] Start: 02-24-2025 Cardiac monitoring [facility] Start: 02-24-2025 Catheterization of vein [facility] Start: 02-24-2025 Consultation [facility] Start: 02-24-2025 Continuous pulse oximetry [facility] Start: 02-24-2025 Elevation of head of bed [facility] Start: 02-24-2025 Exercises [facility] Start: 02-24-2025 Insertion of catheter into peripheral vein [facility] Start: 02-24-2025 Measuring intake and output [facility] Start: 02-24-2025 Notification of physician [facility] Start: 02-24-2025 Oxygen therapy [facility] Start: 02-24-2025 Patient referral to dietitian [facility] Start: 02-24-2025 Providing care according to standard [facility] Start: 02-24-2025 Provision of activity privileges [facility] Start: 02-24-2025 Referral to occupational therapist [facility] Start: 02-24-2025 Referral to service [facility] Start: 02-24-2025 Speech therapy assessment [facility] Start: 02-24-2025 Telemedicine consultation with patient [facility] Start: 02-24-2025 Tobacco use cessation education [facility] Start: 02-24-2025 End: 02-24-2025 [facility] Start: 02-24-2025 Vital signs measurements [facility] Start: 02-24-2025 Verification routine [facility] Start: 02-24-2025 MRI of brain without contrast Brain without Contrast [facility] Start: 02-24-2025 Admission procedure [facility] Start: 02-24-2025 [facility] Start: 02-24-2025 Patient referral to dietitian [facility] Start: 01-24-2025 [facility] Start: 01-24-2025 Oxygen therapy [facility] Start: 01-24-2025 [facility] Start: 01-04-2025 End: 01-04-2025 Patient encounter procedure 01/04/2025 2:20 PM EDT Office Visit [facility] [place] [address] [place] [address] Citlaly العراقي MD [address] [place] [address] Hospital f/u medications [facility] Comment on above: Hospital f/u medications Start: 12-29-2024 End: 12-29-2024 Patient encounter procedure 12/29/2024 3:00 PM EDT Office Visit Cerebrovascular [address] [place] [address] Joshua Leong MD [address] [place] [address] hospital discharge Cerebrovascular Comment on above: hospital discharge Start: 12-28-2024 End: 12-28-2024 Patient encounter procedure 12/28/2024 3:00 PM EDT Office Visit Cerebrovascular Center [address] [place] [address] Jessy Ya APRN.[employer] [address] [place] [address] Hospital discharge follow up 0-2 weeks [facility] Comment on above: Hospital discharge follow up 0-2 weeks Start: 12-18-2024 End: 12-18-2024 [facility] Start: 12-18-2024 Bleeding precautions [facility] Start: 12-18-2024 Consultation [facility] Start: 12-18-2024 End: 12-18-2024 Oxygen therapy [facility] Start: 12-18-2024 End: 12-18-2024 [facility] Start: 12-15-2024 End: 12-15-2024 Patient encounter procedure Neurology Comment on above: follow up 5 moths dementia Dementia 5mo f/u- LO V 07/14/25 no changes Start: 10-30-2024 Covid-19 Vaccine () Covid-19 Vaccine () [facility] Comment on above: Postponed from 04/11/2023 (Declined at t his time) Start: 10-30-2024 RSV Vaccine (1 - 1-dose 60+ series) RSV Vaccine (1 - 1-dose 60+ series) [facility] Comment on above: Postponed from 2005 (Declined at t his time) Start: 10-30-2024 RSV Vaccine (1 - 1-dose 75+ series) RSV Vaccine (1 - 1-dose 75+ series) [facility] Comment on above: Postponed from 2020 (Declined at t his time) Start: 10-30-2024 Shingrix Vaccine (1 of 2) Shingrix Vaccine (1 of 2) [facility] Comment on above: Postponed from 1995 (Declined at t his time) Start: 10-30-2024 Urine microalbumin profile DTaP,Tdap,Td Vaccine (1 - Tdap) [facility] Comment on above: Postponed from 04/15/2007 (Declined at t his time) Start: 10-25-2024 End: 10-25-2024 Patient encounter procedure 10/25/2024 3:20 PM EDT Office Visit OB/Gynecology [address] [place] [address] Herman Palumbo MD [address] [place] [address] 3 MO OV Pessary check OB/Gynecology Comment on above: 3 MO OV Pessary check Start: 09-30-2024 End: 09-30-2024 Patient encounter procedure 09/30/2024 1:40 PM EST Office Visit OB/Gynecology [address] [place] [address] Herman Palumbo MD [address] [place] [address] 3 MO OV Pessary check OB/Gynecology Comment on above: 3 MO OV Pessary check Start: 2024 End: 2024 Patient encounter procedure 2024 2:00 PM EST Office Visit [facility] [place] [address] [place] [address] Yun Jackson APRN.[employer] [address] [place] [address] 4 month follow up and labs [facility] Comment on above: 4 month follow up and labs Start: 08-12-2024 End: 11-11-2024 Urinalysis complete panel - Urine URINALYSIS WITH MICROSCOPIC, REFLEX CULTURE Lab Routine Stress incontinence of urine Expected: 08/12/2024, Expires: 11/11/2024 [facility] Comment on above: Expected: 08/12/2024, Expires: Start: 08-11-2024 Advance Directive Discussion Advance Directive Discussion [facility] Start: 08-11-2024 End: 11-10-2024 Comprehensive metabolic 2000 panel - Serum or Plasma COMPREHENSIVE METABOLIC PANEL Lab Routine Mixed hyperlipidemia Expected: 08/11/2024, Expires: 11/10/2024 [facility] Work Phone: Comment on above: Expected: 08/11/2024, Expires: Start: 08-11-2024 End: 11-10-2024 Hemoglobin A1c in Blood HEMOGLOBIN A1C Lab Routine Prediabetes Expected: 08/11/2024, Expires: 11/10/2024 [facility] Comment on above: Expected: 08/11/2024, Expires: Start: 08-11-2024 End: 11-10-2024 Lipid 1996 panel - Serum or Plasma LIPID PANEL BASIC Lab Routine Mixed hyperlipidemia Expected: 08/11/2024, Expires: 11/10/2024 [facility] Comment on above: Expected: 08/11/2024, Expires: Start: 08-11-2024 Medicare Advantage Annual Wellness Visit Medicare Advantage Annual Wellness Visit [facility] Start: 07-16-2024 End: 07-16-2024 Patient encounter procedure 07/16/2024 2:00 PM EST Office Visit Family Medicine [place] [address] [place] [address] Citlaly العراقي MD [address] [place] [address] blood pressure HTN [facility] [place] Comment on above: blood pressure HTN Start: 07-14-2024 End: 07-14-2024 Patient encounter procedure 07/14/2024 1:30 PM EST Office Visit Neurology [address] [place] [address] Rosemarie Spears PA-C [address] [place] [address] 3 month follow up Neurology Comment on above: 3 month follow up Start: 07-07-2024 End: 07-07-2024 Patient encounter procedure 07/07/2024 11:40 AM EST Routine Office Visit OB/Gynecology [address] [place] [address] Herman Palumbo MD [address] [place] [address] Pessary check OB/Gynecology Comment on above: Pessary check Start: 04-23-2024 End: 04-23-2024 Patient encounter procedure 04/23/2024 1:40 PM EDT Office Visit OB/Gynecology [address] [place] [address] Herman Palumbo MD [address] [place] [address] Pessary maintnenace . OB/Gynecology Comment on above: Pessary maintnenace . Start: 04-14-2024 End: 04-14-2024 Patient encounter procedure [facility] [place] Comment on above: 3 month follow up Start: 04-13-2024 End: 04-13-2024 Patient encounter procedure 04/13/2024 11:30 AM EDT Office Visit Neurology [address] [place] [address] Rosemarie Spears PA-C [address] [place] [address] 3 month follow up Neurology Comment on above: 3 month follow up Start: 04-11-2024 Covid-19 Vaccine ( season) Covid-19 Vaccine ( season) [facility] Start: 04-11-2024 Covid-19 Vaccine ( season) Covid-19 Vaccine ( season) [facility] Start: 04-11-2024 Influenza vaccination Influenza Vaccine (#1) [facility] Start: 04-07-2024 End: 04-07-2024 Patient encounter procedure 04/07/2024 11:40 AM EDT Office Visit OB/Gynecology [address] [place] [address] Herman Palumbo MD [address] [place] [address] Pessary insertion OB/Gynecology Comment on above: Pessary insertion Start: 03-12-2024 End: 03-12-2024 Patient encounter procedure 03/12/2024 2:20 PM EDT Office Visit Family [facility] [place] [address] [facility] [place] [address] Citlaly العراقي MD [address] [place] [address] ER follow up, [facility] 02/28/24 fall Family [facility] [place] Comment on above: ER follow up, [facility] 02/28/24 fall Start: 02-09-2024 End: 02-09-2024 Patient encounter procedure 02/09/2024 1:40 PM EDT Office Visit [facility] [place] [address] [place] [address] Yun Jackson APRN.[employer] [address] [place] [address] 3 month follow up and labs [facility] Comment on above: 3 month follow up and labs Start: 01-31-2024 End: 05-01-2024 Comprehensive metabolic 2000 panel - Serum or Plasma COMP METABOLIC PANEL Lab Routine Prediabetes Expected: 01/31/2024, Expires: 05/01/2024 [facility] Work Phone: Comment on above: Expected: 01/31/2024, Expires: 4 Start: 01-31-2024 End: 05-01-2024 Hemoglobin A1c in Blood HGB A1C Lab Routine Prediabetes Expected: 01/31/2024, Expires: 05/01/2024 [facility] Work Phone: Comment on above: Expected: 01/31/2024, Expires: 4 Start: 01-22-2024 End: 01-22-2024 Patient encounter procedure 01/22/2024 3:20 PM EDT Office Visit OB/Gynecology [address] [place] [address] Herman Palumbo MD [address] [place] [address] Pessary Maintenanced-new pessary in DM area OB/Gynecology Comment on above: Pessary Maintenanced-new pessary in DM a renae Start: 12-22-2023 DIABETES SCREEN DIABETES SCREEN [facility] Start: 08-11-2023 Advance Directive Discussion Advance Directive Discussion [facility] Start: 04-11-2023 Covid-19 Vaccine () Covid-19 Vaccine () [facility] Start: 04-11-2023 Influenza vaccination [facility] Start: 08-11-2022 ADVANCE DIRECTIVE DISCUSSION ADVANCE DIRECTIVE DISCUSSION [facility] Start: 06-28-2022 End: 08-28-2022 CBC W Auto Differential panel - Blood [facility] Work Phone: Comment on above: Expected: 06/28/2022, Expires: 3 Start: 06-28-2022 End: 08-28-2022 Cobalamin (Vitamin B12) [Mass/volume] in Serum or Plasma [facility] Work Phone: Comment on above: Expected: 06/28/2022, Expires: 3 Start: 06-28-2022 End: 08-28-2022 Thyrotropin [Units/volume] in Serum or Plasma [facility] Work Phone: Comment on above: Expected: 06/28/2022, Expires: 3 Start: 04-11-2022 Influenza vaccination INFLUENZA (#1) [facility] Start: 11-15-2021 End: 01-15-2022 CBC W Auto Differential panel - Blood CBC + DIFF Lab Routine Lower abdominal pain Loose stools Nausea and vomiting, unspecified vomiting type Fatigue, unspecified type Expected: 11/15/2021, Expires: 01/15/2022 [facility] Work Phone: Comment on above: Expected: 11/15/2021, Expires: 2 Start: 11-15-2021 End: 01-15-2022 Comprehensive metabolic 2000 panel - Serum or Plasma COMP METABOLIC PANEL Lab Routine Lower abdominal pain Fatigue, unspecified type Expected: 11/15/2021, Expires: 01/15/2022 [facility] Work Phone: Comment on above: Expected: 11/15/2021, Expires: 2 Start: 10-24-2021 COVID-19 VACCINE (4 - Booster for Moderna series) COVID-19 VACCINE (4 - Booster for Moderna series) [facility] Start: 08-21-2021 COVID-19 VACCINE (4 - Booster for Moderna series) COVID-19 VACCINE (4 - Booster for Moderna series) [facility] Start: 08-21-2021 COVID-19 VACCINE (4 - Moderna series) COVID-19 VACCINE (4 - Moderna series) [facility] Start: 08-11-2021 ADVANCE DIRECTIVE DISCUSSION ADVANCE DIRECTIVE DISCUSSION [facility] Start: 2020 RSV Vaccine (1 - 1-dose 75+ series) RSV Vaccine (1 - 1-dose 75+ series) [facility] Start: 11-24-2010 Screening for osteoporosis Bone Density Screening [facility] Start: 04-15-2007 Urine microalbumin profile [facility] Start: 2005 RSV Vaccine (1 - 1-dose 60+ series) RSV Vaccine (1 - 1-dose 60+ series) [facility] Start: 1995 SHINGRIX VACCINE (1 of 2) SHINGRIX VACCINE (1 of 2) [facility] Start: 1963 BP Controlled (<130/80) BP Controlled (<130/80) [facility] inic Anion gap in Serum o r Plasma [facility] Anion gap in Serum o r Plasma [facility] Anion gap in Serum o r Plasma [facility] Anion gap in Serum o r Plasma [facility] Bacteria identified in Urine by Culture URINE CULTURE Microbiology Routine Acute cystitis with hematuria Ordered: 06/25/2023 [facility] Work Phone: Comment on above: Ordered: 06/25/2023 BUN/Creatinine ratio [facility] BUN/Creatinine ratio [facility] BUN/Creatinine ratio [facility] BUN/Creatinine ratio [facility] Calcium [Mass/volume ] in Serum or Plasma [facility] Calcium [Mass/volume ] in Serum or Plasma [facility] Calcium [Mass/volume ] in Serum or Plasma [facility] Calcium [Mass/volume ] in Serum or Plasma [facility] Carbon dioxide, tota l [Moles/volume] in Central venous blood [facility] Carbon dioxide, tota l [Moles/volume] in Central venous blood [facility] Carbon dioxide, tota l [Moles/volume] in Central venous blood [facility] Carbon dioxide, tota l [Moles/volume] in Central venous blood [facility] Cholesterol [Mass/volume] in Serum or Plasma [facility] Cholesterol in HDL [Mass/volume] in Serum or Plasma [facility] Comprehensive metabo lic 2000 panel - Serum or Plasma [facility] Creatinine [Mass/volume] in Serum or Plasma [facility] Creatinine [Mass/volume] in Serum or Plasma [facility] Creatinine [Mass/volume] in Serum or Plasma [facility] Creatinine [Mass/volume] in Serum or Plasma [facility] ECG COMPLETE ECG COMPLETE ECG Routine Memory loss Dementia without behavioral disturbance, psychotic disturbance, mood disturbance, or anxiety, unspecified dementia severity, unspecified dementia type (HCC) Ordered: 06/17/2023 [facility] [facility] Comment on above: Ordered: 06/17/2023 Endometrial bx w/wo endocervix bx w/o dilat spx ENDOMETRIAL BIOPSY Procedures Routine PMB (postmenopausal bleeding) Ordered: 04/18/2023 [facility] Work Phone: Comment on above: Ordered: 04/18/2023 Erythrocyte mean corpuscular volume determination [facility] Erythrocyte mean corpuscular volume determination [facility] Erythrocyte mean corpuscular volume determination [facility] Erythrocyte mean corpuscular volume determination [facility] Glucose [Mass/volume ] in Serum or Plasma [facility] Glucose [Mass/volume ] in Serum or Plasma [facility] Glucose [Mass/volume ] in Serum or Plasma [facility] Glucose [Mass/volume ] in Serum or Plasma [facility] Hematocrit [Volume Fraction] of Blood [facility] Hematocrit [Volume Fraction] of Blood [facility] Hematocrit [Volume Fraction] of Blood [facility] Hematocrit [Volume Fraction] of Blood [facility] Hemoglobin [Mass/volume] in Blood [facility] Hemoglobin [Mass/volume] in Blood [facility] Hemoglobin [Mass/volume] in Blood [facility] Hemoglobin [Mass/volume] in Blood [facility] Influenza virus A an d B RNA and SARS-CoV-2 (COVID-19) N gene panel - Respiratory specimen by EMILIANA with probe detection COVID & INFLUENZA A/B NAAT, ROUTINE Microbiology Routine Chills 06/25/2023 10:21 AM EST [facility] Work Phone: Leukocytes [#/volume ] in Blood [facility] Leukocytes [#/volume ] in Blood [facility] Leukocytes [#/volume ] in Blood [facility] Leukocytes [#/volume ] in Blood [facility] Low density lipoprot ein cholesterol measurement [facility] Magnesium measurement [facility] Mean corpuscular hemoglobin concentration determination [facility] Mean corpuscular hemoglobin concentration determination [facility] Mean corpuscular hemoglobin concentration determination [facility] Mean corpuscular hemoglobin concentration determination [facility] Mean corpuscular hemoglobin determination [facility] Mean corpuscular hemoglobin determination [facility] Mean corpuscular hemoglobin determination [facility] Mean corpuscular hemoglobin determination [facility] Measurement of renal function [facility] Measurement of renal function [facility] Measurement of renal function [facility] Measurement of renal function [facility] End: 07-28-2023 Mri brain brain stem w/o contrast material [facility] Routine Cognitive impairment, mild, so stated 1 Occurrences starting 06/28/2022 until 07/28/2023 [facility] Work Phone: Comment on above: 1 Occurrences starting 06/28/2022 until 07/28/2023 End: 05-21-2024 Mri brain brain stem w/o contrast material MRI BRAIN WO [facility] Radiology Routine Memory change Memory loss 1 Occurrences starting 04/22/2023 until 05/21/2024 [facility] Work Phone: Comment on above: 1 Occurrences starting 04/22/2023 until 05/21/2024 Neutrophil count [facility] Neutrophil count [facility] Neutrophil count [facility] Neutrophil count [facility] Neutrophil percent differential count [facility] Neutrophil percent differential count [facility] Neutrophil percent differential count [facility] Neutrophil percent differential count [facility] Patient Education [facility] Work Phone: Patient referral [facility] Work Phone: Platelets [#/volume] in Blood [facility] Platelets [#/volume] in Blood [facility] Platelets [#/volume] in Blood [facility] Platelets [#/volume] in Blood [facility] Potassium measurement [facility] Potassium measurement [facility] Potassium measurement [facility] Potassium measurement [facility] PT PLAN OF CARE CERTIFICATION PT PLAN OF CARE CERTIFICATION Procedures Routine Acute midline low back pain without sciatica Ordered: 11/08/2021 [facility] Work Phone: Comment on above: Ordered: 11/08/2021 PT PLAN OF CARE CERTIFICATION PT PLAN OF CARE CERTIFICATION Procedures Routine Acute midline low back pain without sciatica Ordered: 01/03/2022 [facility] Work Phone: Comment on above: Ordered: 01/03/2022 Red blood cell count [facility] Red blood cell count [facility] Red blood cell count [facility] Red blood cell count [facility] Red cell distributio n width determination [facility] Red cell distributio n width determination [facility] Red cell distributio n width determination [facility] Red cell distributio n width determination [facility] Serum chloride measurement [facility] Serum chloride measurement [facility] Serum chloride measurement [facility] Serum chloride measurement [facility] Sodium measurement [facility] Sodium measurement [facility] Sodium measurement [facility] Sodium measurement [facility] SURGICAL PATHOLOGY SURGICAL PATH OLOGY Lab Routine PMB (postmenopausal bleeding) 04/18/2023 9:56 AM EDT [facility] Work Phone: Total cholesterol:HD L ratio measurement [facility] Triglycerides measurement [facility] Troponin T.cardiac [Mass/volume] in Serum or Plasma by High sensitivity method [facility] Troponin T.cardiac [Mass/volume] in Serum or Plasma by High sensitivity method [facility] UA DIP, URINE (POC) UA DIP, URIN E (POC) Lab Routine Stress incontinence of urine Ordered: 08/12/2024 [facility] Work Phone: Comment on above: Ordered: 08/12/2024 Urea nitrogen [Mass/volume] in Serum or Plasma [facility] Urea nitrogen [Mass/volume] in Serum or Plasma [facility] Urea nitrogen [Mass/volume] in Serum or Plasma [facility] Urea nitrogen [Mass/volume] in Serum or Plasma [facility] US Abdomen limited [facility] US Abdomen limited [facility] VLDL cholesterol measurement [facility] Immunizations Immunization Date Immunization Notes Care Provider [facility] 04-14-2024 influenza, high dose seasonal, preservative-free Rosemarie Spears PA-C Work Phone: [facility] 04-14-2024 influenza virus vacc ine, unspecified formulation Citlaly العراقي MD Work Phone: [facility] 08-01-2023 influenza (HD-IIV4) vaccine, age 65+ yr, high dose, quadrivalent, PF (FLUZONE HIGH-DOSE) Herman Richards MD Work Phone: [facility] 08-01-2023 influenza virus vacc ine, unspecified formulation Yun Jackson APRN.CNP Work Phone: [facility] 06-28-2022 influenza, high-dose , quadrivalent vaccine (FLUZONE HIGH DOSE QUADRIVALENT) Citlaly العراقي MD Work Phone: [facility] 06-28-2022 influenza virus vacc ine, unspecified formulation Rosemarie Spears PA-C Work Phone: [facility] 06-26-2021 COVID-19 original vaccine, full dose, monovalent (MODERNA) Herman Richards MD Work Phone: [facility] 06-22-2021 influenza, high-dose , quadrivalent vaccine (FLUZONE HIGH DOSE QUADRIVALENT) Annabel Moore PT Work Phone: [facility] 10-04-2020 COVID-19 vaccine, fu ll dose (MODERNA) Annabel Moore PT Work Phone: [facility] 09-06-2020 COVID-19 vaccine, fu ll dose (MODERNA) Annabel Moore PT Work Phone: [facility] 06-22-2020 influenza, high-dose , quadrivalent vaccine (FLUZONE HIGH DOSE QUADRIVALENT) Annabel Moore PT Work Phone: [facility] 05-10-2019 influenza, high dose seasonal, preservative-free Annabel Moore PT Work Phone: [facility] 06-15-2018 influenza, high dose seasonal, preservative-free Annabel Moore PT Work Phone: [facility] 04-24-2017 influenza, high dose seasonal, preservative-free Annabel Moore PT Work Phone: [facility] 08-23-2016 influenza, high dose seasonal, preservative-free Annabel Moore PT Work Phone: [facility] 07-19-2015 influenza, high dose seasonal, preservative-free Annabel Moore PT Work Phone: [facility] 02-20-2015 pneumococcal conjuga te vaccine, 13 valent Annabel Moore PT Work Phone: [facility] Work Phone: 06-06-2014 influenza, seasonal, injectable Annabel Moore PT Work Phone: [facility] Work Phone: 06-14-2013 influenza virus vacc ine, unspecified formulation Annabel Moore PT Work Phone: [facility] 08-20-2012 influenza virus vacc ine, unspecified formulation Annabel Moore PT Work Phone: [facility] 08-30-2011 pneumococcal polysaccharide vaccine, 23 valent Annabel Moore PT Work Phone: [facility] Work Phone: 05-21-2011 influenza virus vacc ine, unspecified formulation Annabel Moore PT Work Phone: [facility] Work Phone: 06-23-2007 influenza virus vacc ine, whole virus Herman Richards MD Work Phone: [facility] 04-14-2007 tetanus and diphther ia toxoids, adsorbed, preservative free, for adult use (2 Lf of tetanus toxoid and 2 Lf of diphtheria toxoid) Annabel Moore PT Work Phone: [facility] Work Phone: 06-09-2006 influenza virus vacc ine, unspecified formulation Annabel Moore PT Work Phone: [facility] Work Phone: Payers Date Payer Category Payer Self-pay [id number] 2015 Medicare (Managed Care) PRIMETIM E [id number] 2015 Unknown PRIMETIME PRIMET VIC HMO POS [id number] 2015-Present [phone] [place] [address] HMO [id number] 2015 Unknown PRIMETIME PRIMET VIC HMO POS [id number] 2015-Present [phone] [address] [place] [address] HMO [id number] 2015 Unknown [id number] 1945 Unknown [id number] 2.16.840.1.851142.3.579.2.5 94 1945 Unknown [id number] 2.16.840.1.636920.3.579.2.5 94 Unknown [id number] 2.16.840.1.820130.3.579.2.4 62 Unknown [id number] 2.16.840.1.025652.3.579.2.4 62 Unknown [id number] 2.16.840.1.246169.3.579.2.4 62 Unknown [id number] 2.16.840.1.775444.3.579.2.4 62 Unknown [id number] 2.16.840.1.809567.3.579.2.4 62 Unknown [id number] 2.16.840.1.641134.3.579.2.4 62 Unknown [id number] 2.16.840.1.012077.3.579.2.4 62 Unknown [id number] 2.16.840.1.687957.3.579.2.4 62 Unknown [id number] 2.16.840.1.998743.3.579.2.4 62 Unknown [id number] 2.16.840.1.009280.3.579.2.4 62 Unknown [id number] 2.16.840.1.046463.3.579.2.4 62 Unknown [id number] 2.16.840.1.803554.3.579.2.4 62 Unknown [id number] 2.16.840.1.624210.3.579.2.4 62 Unknown [id number] 2.16.840.1.615082.3.579.2.4 62 Unknown [id number] 2.16.840.1.731034.3.579.2.4 62 Unknown [id number] 2.16.840.1.373524.3.579.2.4 62 Unknown [id number] 2.16.840.1.288783.3.579.2.4 62 Unknown [id number] 2.16.840.1.838943.3.579.2.4 62 Unknown [id number] 2.16.840.1.469866.3.579.2.4 62 Unknown [id number] 2.16.840.1.136924.3.579.2.4 62 Unknown [id number] 2.16.840.1.718273.3.579.2.4 62 Unknown [id number] 2.16.840.1.054194.3.579.2.4 62 Unknown [id number] 2.16.840.1.704193.3.579.2.4 62 Unknown [id number] 2.16.840.1.890225.3.579.2.4 62 Unknown [id number] 2.16.840.1.849009.3.579.2.4 62 Social History Date Type Detail Facility Start: 05-07-2022 End: 03-21-2025 Tobacco smoking status MIIS Never smoked tobacco [facility] Start: 11-01-2021 End: 01-04-2025 Alcohol intake Current non-drinker of alcohol (finding) [facility] Start: 1945 Sex Assigned At Not on file [facility] Start: 04-21-2021 End: 06-28-2022 Exposure to SARS-CoV-2 (event) Not sure [facility] Start: 10-31-2021 Tobacco smoking stat us MIIS Unknown if ever smoked [facility] Work Phone: Start: 12-21-2020 [facility] Start: 1945 Sex Assigned At Female [facility] Start: 07-24-2017 End: 05-07-2022 Tobacco use and exposure Smokeless tobacco non-user [facility] Start: 05-07-2022 Tobacco Comment Goes by Willem Bauer [facility] Start: 12-30-2022 End: 04-07-2023 History of Social function [facility] Start: 12-30-2022 End: 04-07-2023 Tobacco use panel [facility] Adult Depression Screening Assessment 5 [facility] Has the [employer], [employer], oil, or water company threatened to shut off services in your home in past 12Mo No [facility] (I/We) worried donny er (my/our) food would run out before (I/we) got money to buy more. Never true [facility] Start: 02-24-2025 Tobacco Use Tobacco Use [facility] Start: 02-26-2025 Tobacco Use Tobacco Use [facility] Goals Date Patient Goal Desired Activity /State Functional Status Date Assessment Result Facility 02-26-2025 Functional status Chair [facility] Work Phone: 12-21-2024 Are you deaf, or do you have serious difficulty hearing No 12/21/2024 1:07 PM Jaun Ames RN No [facility] 12-21-2024 Are you blind, or do you have serious difficulty seeing, even when wearing glasses No 12/21/2024 1:07 PM Jaun Ames RN No [facility] 12-21-2024 Do you have serious difficulty walking or climbing stairs Yes 12/21/2024 1:07 PM Jaun Ames RN Yes [facility] 12-21-2024 Do you have difficul ty dressing or bathing Yes 12/21/2024 1:07 PM Jaun Ames RN Yes [facility] 12-21-2024 Because of a physica l, mental, or emotional condition, do you have difficulty doing errands alone such as visiting a physician's office or shopping Yes 12/21/2024 1:07 PM Jaun Ames RN Yes [facility] 02-20-2015 Are you deaf, or do you have serious difficulty hearing Yes 02/20/2015 1:40 PM Flaca Garcia LPN Yes [facility] 02-20-2015 Are you blind, or do you have serious difficulty seeing, even when wearing glasses No 02/20/2015 1:40 PM Flaca Garcia LPN No [facility] 02-20-2015 Do you have serious difficulty walking or climbing stairs No 02/20/2015 1:40 PM Flaca Garcia LPN No [facility] 02-20-2015 Do you have difficul ty dressing or bathing No 02/20/2015 1:40 PM Flaca Garcia LPN No [facility] 02-20-2015 Because of a physica l, mental, or emotional condition, do you have difficulty doing errands alone such as visiting a physician's office or shopping No 02/20/2015 1:40 PM Flaca Garcia LPN No [facility] Mental Status Date Assessment Result Facility 02-26-2025 Cognitive function Voice/Name;To uch/Shaking ;Light Pain;Deep Pain [facility] Work Phone: 02-24-2025 Cognitive function Voice/Name [facility] Work Phone: 01-24-2025 Cognitive function Awake;Alert;A ppropriate; Follows Commands [facility] Work Phone: 12-21-2024 Because of a physica l, mental, or emotional condition, do you have serious difficulty concentrating, remembering, or making decisions Yes 12/21/2024 1:07 PM Jaun Ames RN Yes [facility] 12-18-2024 Cognitive function Awake;Alert;Appropriat e [facility] Work Phone: 02-20-2015 Because of a physica l, mental, or emotional condition, do you have serious difficulty concentrating, remembering, or making decisions No 02/20/2015 1:40 PM EDT Flaca Henderson LPN No [facility] Clinical Notes 05-21-2021 to 02-28-2025 Telephone Encounter - Guillermina Montiel RN - 02/28/2025 9:45 AM EDTTelephone Encounter - Guillermina Montiel RN - 02/28/2025 9:45 AM EDT Note Date & Type Note Facility 02-28-2025 Telephone encounter Note Form atting of this note might be different from the original. Julia Mtz NP [facility] called in and reports Pt was in [facility] for a stroke, and now she is with them for therapy. She called in asking if the Pt ever had elevated LFTs. I told her I didn't see LFTs, Hep panel, or a liver US done on the Pt. I let her know the Pt just had labs done on 02/23/25 and her AST was 26 and ALT was 19. She states that is much different than what they are now. I faxed over the lab work from 02/23/25 to fax # [phone]. Guillermina Montiel RN [facility] 02-28-2025 Miscellaneous Notes Formattin g of this note might be different from the original. Julia Mtz NP [facility] called in and reports Pt was in [facility] for a stroke, and now she is with them for therapy. She called in asking if the Pt ever had elevated LFTs. I told her I didn't see LFTs, Hep panel, or a liver US done on the Pt. I let her know the Pt just had labs done on 02/23/25 and her AST was 26 and ALT was 19. She states that is much different than what they are now. I faxed over the lab work from 02/23/25 to fax # [phone]. Guillermina Montiel RN documented in this encounter [facility] 02-26-2025 Discharge summary [facility] 02-26-2025 Discharge summary Note Date/Time February 26, 2025 10:57am [facility] Medical Records Department [address] [place] [address] Discharge Summary 02/26/25 1045 MR#: [id number] Acct: [id number] Name: WILLEM EVANS Rep #:[id number] : 1945 79 From: Tabitha Whitfield MD PCP: Dr. Citlaly العراقي MD Status:AD M IN Location: [place] [address]- Providers Date of Admission: 02/24/25 Primary Care Physician: Dr. Citlaly العراقي MD Consultations 02/24/25 13:56 Consult: Tele-Neurology Routine Consulting Provider: [facility] Reason for Consult: Acute Ischemic Stroke/TIA EMERGENT Consult: No MD Notified: Yes Date Notified: 02/24/25 Time Notified: 14:14 Method of Notification: Answering Service Nursing Unit Staff Notify [facility] of Tele-Neurology Consult: Yes Reason For Visit: LEFT FACIAL DROOP Diagnosis Discharge Diagnosis (1) Acute right MCA stroke: Status: Acute Code(s): I63.511 - Cerebral infarction due to unspecified occlusion or stenosis of right middle cerebral artery Plan Patient is a 79-year-old female presenting with left-sided weakness 1. Acute CVA ? Patient presented with left facial droop with left-sided weakness. Imaging studies obtained in the ED did show a high-grade stenosis in the proximal M1 horizontal component of the right middle cerebral, measuring 0.5 cm in length. Patient was accepted for transfer to [facility] regarding her large vessel occlusion for intervention patient family however declined for patient johanny transferred. Patient admitted to a monitored bed requested for PT/OT/ST evaluation. Patient started on antiplatelet therapy with aspirin as well as atorvastatin. 2D echo and an MRI ordered as part of patient's evaluation. Consult placed to [facility]. Patient was not a candidate for TNK given the fact that her last known well is unknown ? 02/25/2025; patient scheduled to undergo cookie swallow and MRI 02/26/2025; MRI 1. Multiple foci of restricted diffusion in the right cerebral hemisphere consistent with acute embolic infarctions. 2. Multiple chronic cortical and lacunar infarctions as described. 3. Cerebral atrophy. [facility] to be discharged on high-dose statin therapy aspirin as well as Plavix (patient daughter initially was against her mom receiving Plavix however patient's did agree for Plavix to be given after discussion with [facility] teleneuro) 2D echo ?Mild concentric left ventricular hypertrophy. Mild inferior hypokinesis. Septal wall motion consistent with left bundle branchblock. Estimated LVEF 55%. Stage I diastolic dysfunction. Mild (1+) aortic valve insufficiency. #2. Previous CVA ? Patient did receive TNK and transferred to [facility] where no intervention was doneregarding her high-grade stenosis in the proximal M1?right MCA 3. Essential hypertension ? Will proceed permissive hypertension protocol 4. Depression with anxiety ? Patient is on fluoxetine as well as buspirone 5. Dementia ? Patient is on memantine 10 mg twice daily will resume once home meds have beenreconciled 6. Anemia ? Secondary to chronic disorder monitoring H&H and transfuse if patient becomes symptomatic or hemoglobin falls below 7 7. DVT prophylaxis ? Subcu Lovenox Time spent in the patient's overall evaluation,decision-making process, review of diagnostic data, adjustment of management, discussion with other providers, nursing nursing and ancillary staff involved in patient's care documentation, 38 Minutes Medications at Discharge Home Medications fluoxetine 40 mg capsule 60 mg PO DAILY anxiety 10/17/21 multivitamin 1 tab PO DAILY suppliment 10/17/21 buspirone 10 mg tablet 10 mg PO TID mood 02/28/24 melatonin 10 mg capsule 10 mg PO QHS PRN sleep 02/28/24 memantine 10 mg tablet 10 mg PO BID memory 02/28/24 polyethylene glycol 3350 17 gram/dose oral powder (ClearLax) 17 g PO DAILY PRN constipation 03/08/24 sennosides 8.6 mg tablet (Evac-U-Gen (sennosides)) 17.2 mg PO BID PRN constipation 03/08/24 gabapentin 100 mg capsule 100 mg PO TID PRN PRN for pain 12/18/24 losartan 25 mg tablet 25 mg PO DAILY bp 12/18/24 trazodone 50 mg tablet 50 mg PO QHS sleep 12/18/24 aspirin 81 mg chewable tablet 1 tab PO DAILY suppliment 02/24/25 atorvastatin 40 mg tablet 40 mg PO QHS cholesterol 02/24/25 fluoxetine 20 mg capsule 60 mg PO DAILY depression 02/24/25 primidone 50 mg tablet (Mysoline) 25 mg PO QHS sleep/tremmors 02/24/25 clopidogrel 75 mg tablet (Plavix) 75 mg PO DAILY #90 tabs 02/26/25 potassium chloride 20 mEq tablet,extended release(part/cryst) 20 meq PO DAILY #30 tabs 02/26/25 Hospital Course Summary of Care Provided Minutes Spent on Discharge: 35 Physical Exam Narrative GENERAL: Dysarthric HEENT: Atraumatic; normocephalic EYES; Anicteric, Normal Conjunctiva NECK; supple, normal thyroid, RESPIRATORY: Diminished to auscultation CARDIOVASCULAR: Regular S1 S2, GI: soft, normoactive bowel sounds, : No Renal angle tenderness; EXTREMITIES: No edema, no clubbing, MUSCULOSKELETAL: no muscle wasting NEURO: Awake; left facial droop with flaccid paralysis involving the left upperextremity SKIN: No Rash PSYCH; Flat affect Weight / BMI Weight Weight: 56.6 kg Body Mass Index (BMI) 20.0 ABG / Lab / Microbiology Data 02/26/25 04:51 02/26/25 04:51 Laboratory: Laboratory Results - last 24 hr 02/26/25 04:51: WBC 15.0 H, RBC 3.61 L, Hgb 10.5 L, Hct 31.1 L, MCV 86.1, MCH 29.1, MCHC 33.8, RDW Std Deviation 45.4 H, RDW Coeff of Shon 14.3, Plt Count 375,MPV 10.4, Immature Gran % (Auto) 0.400, Neut % (Auto) 80.5 H, Lymph % (Auto) 10.1 L, Wilcox % (Auto) 8.5, Eos % (Auto) 0.1, Baso % (Auto) 0.4, Absolute Neuts (auto) 12.1 H, Absolute Lymphs (auto) 1.52, Nucleated RBC % 0, Sodium 135, Potassium 2.8 L, Chloride 101, Carbon Dioxide 18.5 L, Anion Gap 15, BUN 4, Creatinine 0.50 L, Estim Creat Clear Calc 50.95, Est GFR (MDRD) Non-Af 96, BUN/Creatinine Ratio 9.0 L, Glucose 120 H, Calcium 8.9 Radiography Diagnostic Testing: Radiology Impression Echocardiogram 02/24/25 12:25 Interpretation Summary Mild concentric left ventricular hypertrophy. Mild inferior hypokinesis. Septal wall motion consistent with left bundle branchblock. Estimated LVEF 55%. Stage I diastolic dysfunction. Mild (1+) aortic valve insufficiency. Ordering Physician: Tabitha Whitfield Referring Physician: CITLALY العراقي Performed By: Ivana Ramos [facility]CS Brain MRI 02/25/25 10:55 IMPRESSION: 1. Multiple foci of restricted diffusion in the right cerebral hemisphere consistent with acute embolic infarctions. 2. Multiple chronic cortical and lacunar infarctions as described. 3. Cerebral atrophy. Reading Location: [place] [address] D/C Instructions DC O2, CPAP, BIPAP Needs Home O2 Discharge instructions: No Meaningful Use Info Meaningful Use Meaningful Use Diagnoses (Choose all that apply): Ischemic CVA CVA Therapy Assessed for PT,OT and/or ST?: Yes Ischemic Stroke Antithrombotic order at d/c?: Yes Dx of Atrial fib/flutter?: No Statins at discharge?: Yes Primary Dx Acute Ischemic CVA?: Yes IV thrombolytic ordered during stay?: No Reason IV thrombolytic not ordered: Treatment not Indicated Discharge Plan Admission Admit Date/Time: 02/24/25 12:15 Attending Provider: Tabitha Whitfield Primary Care Provider: Citlaly العراقي Consulting Providers: Fabrice Trevizo; Le Noble; Sandy Eugene; Marva Mattson; Salud Sinclair; Richard Lemos; Mary Kay Patel; Zac Mares; Derrell Bahena; Donny Cowan; Teresa Marcelino; Krzysztof Mauro; Marga Lam; Nathanael Walker; Steff Peñaloza; Damon Andres; Lesia Montague; Billy Alexander; Anila Tejada; Ramon Doyle Discharge Orders/Prescriptions Prescriptions: New potassium chloride 20 mEq tablet,ER particles/crystals 20 meq PO DAILY Qty: 30 0RF clopidogrel [Plavix] 75 mg tablet 75 mg PO DAILY Qty: 90 0RF Continued fluoxetine 40 mg capsule 60 mg PO DAILY Patient Comments: TAKE 1 CAPSULE BY MOUTH ONCE DAILY multivitamin Tablet 1 tab PO DAILY aspirin 81 mg tablet,chewable 1 tab PO DAILY atorvastatin 40 mg tablet 40 mg PO QHS fluoxetine 20 mg capsule 60 mg PO DAILY primidone [Mysoline] 50 mg tablet 25 mg PO QHS buspirone 10 mg tablet 10 mg PO TID memantine 10 mg tablet 10 mg PO BID melatonin 10 mg capsule 10 mg PO QHS PRN (Reason: sleep) sennosides [Evac-U-Gen (sennosides)] 8.6 mg tablet 17.2 mg PO BID PRN (Reason: constipation) polyethylene glycol 3350 [ClearLax] 17 gram/dose powder 17 g PO DAILY PRN (Reason: constipation) trazodone 50 mg tablet 50 mg PO QHS gabapentin 100 mg capsule 100 mg PO TID PRN PRN (Reason: for pain) losartan 25 mg tablet 25 mg PO DAILY Referrals / Follow Up: Citlaly العراقي MD [Primary Care Provider] - Disposition Disposition (needs filled in before D/C Order can be placed): Halfway Facility Charges/Coding Visit Charges Inpatient E&M: 17694 Disch Hosp >30min 02/26/25 1057 <Electronically signed by Tabitha Whitfield MD> Cosigner Signature (if applicable): CC: Dr. Tabitha Whitfield MD; Dr. Citlaly العراقي MD~ Signed [facility] Work Phone: [phone] 812-712307-19-2025 Discharge summary [facility] Medical Records Department [address] [place] [address] Discharge Summary 02/26/25 1045 MR#: [id number] Acct: [id number] Name: WILLEM EVANS E Rep #:[id number] : 1945 79 From: Tabitha Whitfield MD PCP: Dr. Citlaly العراقي MD Status:AD M IN Location: [facility] [id number] Providers Date of Admission: 02/24/25 Primary Care Physician: Dr. Citlaly العراقي MD Consultations 02/24/25 13:56 Consult: Tele-Neurology Routine Consulting Provider: [facility] Reason for Consult: Acute Ischemic Stroke/TIA EMERGENT Consult: No MD Notified: Yes Date Notified: 02/24/25 Time Notified: 14:14 Method of Notification: Answering Service Nursing Unit Staff Notify [facility] of Tele-Neurology Consult: Yes Reason For Visit: LEFT FACIAL DROOP Diagnosis Discharge Diagnosis (1) Acute right MCA stroke: Status: Acute Code(s): I63.511 - Cerebral infarction due to unspecified occlusion or stenosis of right middle cerebral artery Plan Patient is a 79-year-old female presenting with left-sided weakness 1. Acute CVA ? Patient presented with left facial droop with left-sided weakness. Imaging studies obtained in the ED did show a high-grade stenosis in the proximal M1 horizontal component of the right middle cerebral, measuring 0.5 cm in length. Patient was accepted for transfer to [facility] regarding her large vessel occlusion for intervention patient family however declined for patient johanny transferred. Patient admitted to a monitored bed requested for PT/OT/ST evaluation. Patient started on antiplatelet therapy with aspirin as well as atorvastatin. 2D echo and an MRI ordered as part of patient's evaluation. [facility] Patient was not a candidate for TNK given the fact that her last known well is unknown ? 02/25/2025; patient scheduled to undergo cookie swallow and MRI 02/26/2025; MRI 1. Multiple foci of restricted diffusion in the right cerebral hemisphere consistent with acute embolic infarctions. 2. Multiple chronic cortical and lacunar infarctions as described. 3. Cerebral atrophy. [facility] patient to be discharged on high-dose statin therapy aspirin as well as Plavix (patient daughter initially was against hermom receiving Plavix however patient's did agree for Plavix to be given after discussion with [facility]) 2D echo ?Mild concentric left ventricular hypertrophy. Mild inferior hypokinesis. Septal wall motion consistent with left bundle branchblock. Estimated LVEF 55%. Stage I diastolic dysfunction. Mild (1+) aortic valve insufficiency. #2. Previous CVA ? Patient did receive TNK and transferred to [facility] where no intervention was doneregarding her high-grade stenosis in the proximal M1?right MCA 3. Essential hypertension ? Will proceed permissive hypertension protocol 4. Depression with anxiety ? Patient is on fluoxetine as well as buspirone 5. Dementia ? Patient is on memantine 10 mg twice daily will resume once home meds have beenreconciled 6. Anemia ? Secondary to chronic disorder monitoring H&H and transfuse if patient becomes symptomatic or hemoglobin falls below 7 7. DVT prophylaxis ? Subcu Lovenox Time spent in the patient's overall evaluation,decision-making process, review of diagnostic data, adjustment of management, discussion with other providers, nursing nursing and ancillary staff involved in patient's care documentation, 38 Minutes Medications at Discharge Home Medications fluoxetine 40 mg capsule 60 mg PO DAILY anxiety 10/17/21 multivitamin 1 tab PO DAILY suppliment 10/17/21 buspirone 10 mg tablet 10 mg PO TID mood 02/28/24 melatonin 10 mg capsule 10 mg PO QHS PRN sleep 02/28/24 memantine 10 mg tablet 10 mg PO BID memory 02/28/24 polyethylene glycol 3350 17 gram/dose oral powder (ClearLax) 17 g PO DAILY PRN constipation 03/08/24 sennosides 8.6 mg tablet (Evac-U-Gen (sennosides)) 17.2 mg PO BID PRN constipation 03/08/24 gabapentin 100 mg capsule 100 mg PO TID PRN PRN for pain 12/18/24 losartan 25 mg tablet 25 mg PO DAILY bp 12/18/24 trazodone 50 mg tablet 50 mg PO QHS sleep 12/18/24 aspirin 81 mg chewable tablet 1 tab PO DAILY suppliment 02/24/25 atorvastatin 40 mg tablet 40 mg PO QHS cholesterol 02/24/25 fluoxetine 20 mg capsule 60 mg PO DAILY depression 02/24/25 primidone 50 mg tablet (Mysoline) 25 mg PO QHS sleep/tremmors 02/24/25 clopidogrel 75 mg tablet (Plavix) 75 mg PO DAILY #90 tabs 02/26/25 potassium chloride 20 mEq tablet,extended release(part/cryst) 20 meq PO DAILY #30 tabs 02/26/25 Hospital Course Summary of Care Provided Minutes Spent on Discharge: 35 Physical Exam Narrative GENERAL: Dysarthric HEENT: Atraumatic; normocephalic EYES; Anicteric, Normal Conjunctiva NECK; supple, normal thyroid, RESPIRATORY: Diminished to auscultation CARDIOVASCULAR: Regular S1 S2, GI: soft, normoactive bowel sounds, : No Renal angle tenderness; EXTREMITIES: No edema, no clubbing, MUSCULOSKELETAL: no muscle wasting NEURO: Awake; left facial droop with flaccid paralysis involving the left upperextremity SKIN: No Rash PSYCH; Flat affect Weight / BMI Weight Weight: 56.6 kg Body Mass Index (BMI) 20.0 ABG / Lab / Microbiology Data 02/26/25 04:51 02/26/25 04:51 Laboratory: Laboratory Results - last 24 hr 02/26/25 04:51: WBC 15.0 H, RBC 3.61 L, Hgb 10.5 L, Hct 31.1 L, MCV 86.1, MCH 29.1, MCHC 33.8, RDW Std Deviation 45.4 H, RDW Coeff of Shon 14.3, Plt Count 375,MPV 10.4, Immature Gran % (Auto) 0.400, Neut % (Auto) 80.5 H, Lymph % (Auto) 10.1 L, Wilcox % (Auto) 8.5, Eos % (Auto) 0.1, Baso % (Auto) 0.4, Absolute Neuts (auto) 12.1 H, Absolute Lymphs (auto) 1.52, Nucleated RBC % 0, Sodium 135, Potassium 2.8 L, Chloride 101, Carbon Dioxide 18.5 L, Anion Gap 15, BUN 4, Creatinine 0.50 L, Estim Creat Clear Calc 50.95, Est GFR (MDRD) Non-Af 96, BUN/Creatinine Ratio 9.0 L, Glucose 120 H, Calcium 8.9 Radiography Diagnostic Testing: Radiology Impression Echocardiogram 02/24/25 12:25 Interpretation Summary Mild concentric left ventricular hypertrophy. Mild inferior hypokinesis. Septal wall motion consistent with left bundle branchblock. Estimated LVEF 55%. Stage I diastolic dysfunction. Mild (1+) aortic valve insufficiency. Ordering Physician: Tabitha Whitfield Referring Physician: CITLALY العراقي Performed By: Ivana Ramos RDCS Brain MRI 02/25/25 10:55 IMPRESSION: 1. Multiple foci of restricted diffusion in the right cerebral hemisphere consistent with acute embolic infarctions. 2. Multiple chronic cortical and lacunar infarctions as described. 3. Cerebral atrophy. Reading Location: [place] [address] D/C Instructions DC O2, CPAP, BIPAP Needs Home O2 Discharge instructions: No Meaningful Use Info Meaningful Use Meaningful Use Diagnoses (Choose all that apply): Ischemic CVA CVA Therapy Assessed for PT,OT and/or ST?: Yes Ischemic Stroke Antithrombotic order at d/c?: Yes Dx of Atrial fib/flutter?: No Statins at discharge?: Yes Primary Dx Acute Ischemic CVA?: Yes IV thrombolytic ordered during stay?: No Reason IV thrombolytic not ordered: Treatment not Indicated Discharge Plan Admission Admit Date/Time: 02/24/25 12:15 Attending Provider: Tabitha Whitfield Primary Care Provider: Citlaly العراقي Consulting Providers: Fabrice Trevizo; Le Noble; Sandy Eugene; Marva Mattson; Salud Sinclair; Richard Lemos; Mary Kay Patel; Zac Mares; Derrell Bahena; Donny Cowan; Teresa Marcelino; Krzysztof Mauro; Marga Lam; Nathanael Walker; Steff Peñaloza; Damon Andres; Lesia Montague; Billy Alexander; Anila Tejada; Ramon Doyle Discharge Orders/Prescriptions Prescriptions: New potassium chloride 20 mEq tablet,ER particles/crystals 20 meq PO DAILY Qty: 30 0RF clopidogrel [Plavix] 75 mg tablet 75 mg PO DAILY Qty: 90 0RF Continued fluoxetine 40 mg capsule 60 mg PO DAILY Patient Comments: TAKE 1 CAPSULE BY MOUTH ONCE DAILY multivitamin Tablet 1 tab PO DAILY aspirin 81 mg tablet,chewable 1 tab PO DAILY atorvastatin 40 mg tablet 40 mg PO QHS fluoxetine 20 mg capsule 60 mg PO DAILY primidone [Mysoline] 50 mg tablet 25 mg PO QHS buspirone 10 mg tablet 10 mg PO TID memantine 10 mg tablet 10 mg PO BID melatonin 10 mg capsule 10 mg PO QHS PRN (Reason: sleep) sennosides [Evac-U-Gen (sennosides)] 8.6 mg tablet 17.2 mg PO BID PRN (Reason: constipation) polyethylene glycol 3350 [ClearLax] 17 gram/dose powder 17 g PO DAILY PRN (Reason: constipation) trazodone 50 mg tablet 50 mg PO QHS gabapentin 100 mg capsule 100 mg PO TID PRN PRN (Reason: for pain) losartan 25 mg tablet 25 mg PO DAILY Referrals / Follow Up: Citlaly العراقي MD [Primary Care Provider] - Disposition Disposition (needs filled in before D/C Order can be placed): Halfway Facility Charges/Coding Visit Charges Inpatient E&M: 94354 Disch Hosp >30min 02/26/25 1057 Cosigner Signature (if applicable): CC: Dr. Tabitha Whitfield MD; Dr. Citlaly العراقي MD~ Signed [facility]07-19-2025 [facility] Medical Records Department [address] [place] [id number] Discharge Summary 02/26/25 1045 MR#: [id number] Acct: [id number] Name: WILLEM EVANS Rep #: [id number] : 1945 79 From: Tabitha Whitfield MD PCP: Dr. Citlaly العراقي MD Status:ADM IN Location: [place] [address]-1 Providers Date of Admission: 02/24/25 Primary Care Physician: Dr. Citlaly العراقي MD Consultations 02/24/25 13:56 Consult: Tele-Neurology Routine Consulting Provider: [facility] Reason for Consult: Acute Ischemic Stroke/TIA EMERGENT Consult: No MD Notified: Yes Date Notified: 02/24/25 Time Notified: 14:14 Method of Notification: Answering Service Nursing Unit Staff Notify [facility] of Tele-Neurology Consult: Yes Reason For Visit: LEFT FACIAL DROOP Diagnosis Discharge Diagnosis (1) Acute right MCA stroke: Status: Acute Code(s): I63.511 - Cerebral infarction due to unspecified occlusion or stenosis of right middle cerebral artery Plan Patient is a 79-year-old female presenting with left-sided weakness 1. Acute CVA ??? Patient presented with left facial droop with left-sided weakness. Imaging studies obtained in the ED did show a high-grade stenosis in the proximal M1 horizontal component of the right middle cerebral, measuring 0.5 cm in length. Patient was accepted for transfer to [facility] regarding her large vessel occlusion for intervention patient family however declined for patient to be transferred. Patient admitted to a monitored bed requested for PT/OT/ST evaluation. Patient started on antiplatelet therapy with aspirin as well as atorvastatin. 2D echo and an MRI ordered as part of patient's evaluation. Consult placed to [facility]. Patient was not a candidate for TNK given the fact that her last known well is unknown ??? 02/25/2025; patient scheduled to undergo cookie swallow and MRI 02/26/2025; MRI 1. Multiple foci of restricted diffusion in the right cerebral hemisphere consistent with acute embolic infarctions. 2. Multiple chronic cortical and lacunar infarctions as described. 3. Cerebral atrophy. [facility] for patient to be discharged on high-dose statin therapy aspirin as well as Plavix (patient daughter initially was against her mom receiving Plavix however patient's did agree for Plavix to be given after discussion with [facility]) 2D echo ???Mild concentric left ventricular hypertrophy. Mild inferior hypokinesis. Septal wall motion consistent with left bundle branch block. Estimated LVEF 55%. Stage I diastolic dysfunction. Mild (1+) aortic valve insufficiency. #2. Previous CVA ??? Patient did receive TNK and transferred to [facility] where no intervention was done regarding her high- grade stenosis in the proximal M1???right MCA 3. Essential hypertension ??? Will proceed permissive hypertension protocol 4. Depression with anxiety ??? Patient is on fluoxetine as well as buspirone 5. Dementia ??? Patient is on memantine 10 mg twice daily will resume once home meds have been reconciled 6. Anemia ??? Secondary to chronic disorder monitoring H H and transfuse if patient becomes symptomatic or hemoglobin falls below 7 7. DVT prophylaxis ??? Subcu Lovenox Time spent in the patient's overall evaluation,decision-making process, review of diagnostic data, adjustment of management, discussion with other providers, nursing nursing and ancillary staff involved in patient's care documentation, 38 Minutes Medications at Discharge Home Medications fluoxetine 40 mg capsule 60 mg PO DAILY anxiety 10/17/21 multivitamin 1 tab PO DAILY suppliment 10/17/21 buspirone 10 mg tablet 10 mg PO TID mood 02/28/24 melatonin 10 mg capsule 10 mg PO QHS PRN sleep 02/28/24 memantine 10 mg tablet 10 mg PO BID memory 02/28/24 polyethylene glycol 3350 17 gram/dose oral powder (ClearLax) 17 g PO DAILY PRN constipation 03/08/24 sennosides 8.6 mg tablet (Evac-U-Gen (sennosides)) 17.2 mg PO BID PRN constipation 03/08/24 gabapentin 100 mg capsule 100 mg PO TID PRN PRN for pain 12/18/24 losartan 25 mg tablet 25 mg PO DAILY bp 12/18/24 trazodone 50 mg tablet 50 mg PO QHS sleep 12/18/24 aspirin 81 mg chewable tablet 1 tab PO DAILY suppliment 02/24/25 atorvastatin 40 mg tablet 40 mg PO QHS cholesterol 02/24/25 fluoxetine 20 mg capsule 60 mg PO DAILY depression 02/24/25 primidone 50 mg tablet (Mysoline) 25 mg PO QHS sleep/tremmors 02/24/25 clopidogrel 75 mg tablet (Plavix) 75 mg PO DAILY #90 tabs 02/26/25 potassium chloride 20 mEq tablet,extended release(part/cryst) 20 meq PO DAILY #30 tabs 02/26/25 Hospital Course Summary of Care Provided Minutes Spent on Discharge: 35 Physical Exam Narrative GENERAL: Dysarthric HEENT: Atraumatic; normocephalic EYES; Anicteric, Normal Con (more content not included)...[facility]07-18-2025 Consult note Author Salud Sinclair [facility] Note Date/Time February 25, 2025 1:23 pm [facility] Medical Records Department [address] [place] [address] Consultation - Neurology 02/25/25 1026 MR#: [id number] Acct: [id number] Name: WILLEM EVANS Rep #:[id number] : 1945 79 From: Salud Sinclair MD PCP: Dr. Citlaly العراقي MD Status:AD M IN Location: [address] 1 Assessment and Plan: Stroke Assessment/Plan WILLEM EVANS is a 79 F with a history of CVA in December 2024, did receive TNK, knownRM1 stenosis who presents for evaluation of new L sided weakness. Concern for new RMCA stroke and MRI bRain with new watershed looking stroke. Etiology likely2/2 ICAD - Anti-platelet medication: recommend Plavix load 300mg and then doing Plavix 75mg+ASA 81mg x 90 days for her ICAD - for next 2 weeks, keep SBP 130-160/80-90, then BP goal should be <140/80 - LDL 66, A1c 6.0 - Occupational/ Physical therapy consults - NPO until swallow evaluation. IVF until able to take po - DVT prophylaxis with SCDs and heparin SQ - Vascular risk factor modification. The following are the recommended guidelines: LDL Goal < 70 Smoking Cessation Diabetes Management group home blood pressure control should achieve <130/80 mmHg. BP managementshould aim to achieve skilled nursing contorl in a reasonable amount of time, taking into consideration the individual patient's requirements and characteristics. Weight Management: Goal for BMI is 18.5 -24.9 kg/m2 Alcohol: No more than 2 drinks/day for men or 1 drink/day for non- women - Promote lifestyle modification: weight control, physical activity, moderation of alcohol intake, moderate sodium intake. Followup with PCP in 1-2 weeks, and in Neurology clinic in 6-12 weeks HPI Consult Data Date of Consult: 02/25/25 HPI Narrative HPI Narrative: WILLEM EVANS, is a 79 F who presents left-sided weakness and facial droop. Patient has history of CVA in December 2024, did receive TNK and was transferred to [facility]. 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 Patient's daughter had noticed patient with a slight left facial droop 2 days prior to patient's admission. This was followed by subjective weakness involving the left lower extremity the following day. She did check up on her mom and found patient to have flaccid paralysis involving the left upper extremity necessitating patient being brought to the emergency department. Imaging studies obtained demonstrated a high-grade stenosis in the proximal M1 horizontal component of the right middle cerebral, measuring 0.5 cm in length. Call was placed for patient to have been transferred to [facility]. Patient's daughter however requested further transfer not to take place. Patient family wanted patient placed placed in the facility instead. Neurologic History Patient at baseline only is aware of person and some family members. The day before she was having progressive weakness that worsened and could no longer walk. She had weakness in December and had facial droop then. Patient did not recovercompletely after the December stroke. They notice most of the weakness at baseline onthe L arm. Can no longer walk on her own, someone always has to walk with her from now on even though she does not use assistive devices. She has baseline dementia, did not worsen in December -? General: Laying comfortably in bed; in no acute distress. -? HENT: Normal oropharynx and mucosa. Normal external appearance of ears and nose. Exophthalmos. -? Neck: Supple, no pain or tenderness -? CV:? No peripheral edema. -? Pulmonary:? Normal respiratory effort. -? Ext: No cyanosis, edema, or deformity -? Skin: No rash. Normal palpation of skin.? -? Musculoskeletal: full range of motion; no joint tenderness. Normal digits and nails by inspection. No clubbing. -? NEURO: -? Mental Status: The patient was alert and oriented to time, place, andperson. Normal recent/remote memory, concentration, and general fund of knowledge. -? Language: speech is clear.? Naming, repetition, fluency, and comprehension intact. -? Cranial Nerves: PERRL 4 mm/brisk. EOMI, visual ho full, R facial droop facial sensation intact, hearing intact Sternocleidomastoid and trapezius were equally strong. Soft palate raisesequally, no uvular deviations -? Motor: minimal movement in plane of bed with the LUE, antigravity in the RUE strongly b./l LE antigravity with no drift -? Tone: low tone in the LUE -? Sensation- difficult to assess, appears to have some extinction on the L -? Coordination: No dysmetria on [id number], finger follow finger or sikh-efki-whge. -? 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 Depression Inflammatory bowel disease Anxiety Home Medications ?Medication ?Instructions ?Recorded ?Last Taken ?Type fluoxetine 40 mg capsule 60 mg PO DAILY anxiety 10/17 Unknown History multivitamin 1 tab PO DAILY suppliment Unknown History buspirone 10 mg tablet 10 mg PO TID mood 02/28/24 U nknown History melatonin 10 mg capsule 10 mg PO QHS PRN sleep 02/27 Unknown History memantine 10 mg tablet 10 mg PO BID memory 02/28/24 Unknown History polyethylene glycol 3350 17 17 g PO DAILY PRN constipa tion 03/08/24 Unknown History gram/dose oral powder (ClearLax) sennosides 8.6 mg tablet 17.2 mg PO BID PRN constipat ion 03/08/24 Unknown History (Evac-U-Gen (sennosides)) gabapentin 100 mg capsule 100 mg PO TID PRN PRN for pa in 12/18/24 Unknown History losartan 25 mg tablet 25 mg PO DAILY bp 12/18/24 U nknown History trazodone 50 mg tablet 50 mg PO QHS sleep 12/18/24 Unknown History aspirin 81 mg chewable tablet 1 tab PO DAILY supplimen t 02/24/25 Unknown History atorvastatin 40 mg tablet 40 mg PO QHS cholesterol Unknown History fluoxetine 20 mg capsule 60 mg PO DAILY depression Unknown History primidone 50 mg tablet (Mysoline) 25 mg PO QHS sleep/t remmors 02/24/25 Unknown History Allergy/AdvReac Type Severity Reaction Status Date / Time No Known Allergies Allergy Verified 02/24/25 09:29 Social History (Updated 02/24/25 @ 14:20 by Kera Vigil) household members: spouse housing: house Smoking Status: Never smoker Vital Signs Vital Signs Vital Signs: 02/24/25 11:27 02/24/25 13:00 02/24/25 13:44 Temperature 97.4 F L Temperature Source Pulse Rate 73 78 78 Respiratory Rate 18 18 16 Respiratory Effort Respiratory Depth Respiratory Pattern Blood Pressure 152/92 H 196/91 H 196/91 H Blood Pressure Mean 112 126 126 Blood Pressure Source Blood Pressure Position Blood Pressure Location Pulse Ox 98 96 94 Oxygen Delivery Method Room Air 02/24/25 13:55 02/24/25 14:00 02/24/25 14:22 Temperature 97.9 F Temperature Source Oral Pulse Rate 74 Respiratory Rate 16 Respiratory Effort Normal Non-Labored Respiratory Depth Normal Respiratory Pattern Normal Blood Pressure 197/76 H Blood Pressure Mean 116 Blood Pressure Source Monitor Blood Pressure Position Semi-Fowlers Blood Pressure Location Right Arm Pulse Ox 94 97 Oxygen Delivery Method Room Air Room Air Room Air 02/24/25 17:57 02/24/25 20:40 02/24/25 20:48 Temperature 98.6 F 97.4 F L Temperature Source Oral Temporal Pulse Rate 84 81 Respiratory Rate 14 16 Respiratory Effort Normal Non-Labored Respiratory Depth Normal Respiratory Pattern Normal Blood Pressure 164/84 H 184/77 H Blood Pressure Mean 110 112 Blood Pressure Source Monitor Monitor Blood Pressure Position Semi-Fowlers Semi-Fowlers Blood Pressure Location Right Arm Right Arm Pulse Ox 95 95 Oxygen Delivery Method Room Air Room Air Room Air 02/25/25 00:40 02/25/25 02:41 02/25/25 04:40 Temperature 97.5 F L 97.0 F L Temperature Source Temporal Temporal Pulse Rate 84 85 Respiratory Rate 15 16 Respiratory Effort Normal Non-Labored Respiratory Depth Normal Respiratory Pattern Normal Blood Pressure 177/85 H 174/82 H Blood Pressure Mean 115 112 Blood Pressure Source Monitor Monitor Blood Pressure Position Semi-Fowlers Semi-Fowlers Blood Pressure Location Right Arm Right Arm Pulse Ox 94 94 Oxygen Delivery Method Room Air Room Air Room Air 02/25/25 07:28 02/25/25 07:30 02/25/25 07:32 Temperature 97.8 F Temperature Source Oral Pulse Rate 84 Respiratory Rate 14 Respiratory Effort Normal Non-Labored Respiratory Depth Normal Respiratory Pattern Normal Blood Pressure 139/77 H Blood Pressure Mean 97 Blood Pressure Source Monitor Blood Pressure Position Semi-Fowlers Blood Pressure Location Right Arm Pulse Ox 95 94 Oxygen Delivery Method Room Air Room Air Room Air Weight Weight: 56.6 kg Body Mass Index (BMI) 20.0 EEG Results Procedure Details EEG Procedure Details: WILLEM EVANS is a 79 year old F with a past medical history of , who presentsfor evaluation of Electroencephalogram on DATE at TIME Lab / Micro Data 02/25/25 05:23 02/25/25 05:23 Labs: Laboratory Results - last 24 hr 02/24/25 09:35: PT 12.8, INR 1.0, APTT 28.7, Sodium 140, Potassium 3.4, [id number], Carbon Dioxide 22.6, Anion Gap 14, BUN 9, Creatinine 0.63 L, Estim Creat Clear Calc 51.76, Est GFR (MDRD) Non-Af 90, BUN/Creatinine Ratio 14.9, Glucose 116 H, Calcium 9.5, Troponin T High Sens 20 H D 02/24/25 12:50: Troponin T Hi Sens 2 Hr 16 H 02/24/25 14:50: Troponin T Hi Sens 4Hr 19 H 02/25/25 05:23: WBC 10.0, RBC 3.88 L, Hgb 11.2 L, Hct 33.4 L, MCV 86.1, MCH 28.9, MCHC 33.5, RDW Std Deviation 45.6 H, RDW Coeff of Shon 14.4, Plt Count TNP,MPV 11.3, Immature Gran % (Auto) 0.300, Neut % (Auto) 75.8 H, Lymph % (Auto) 15.2 L, Wilcox % (Auto) 7.6, Eos % (Auto) 0.6, Baso % (Auto) 0.5, Absolute Neuts (auto) 7.5, Absolute Lymphs (auto) 1.51, Nucleated RBC % 0, Platelet Estimate ADEQUATE, Sodium 137, Potassium 3.5, Chloride 103, Carbon Dioxide 17.5 L, Anion Gap 17 H, BUN 5, Creatinine 0.53 L, Estim Creat Clear Calc 50.95, Est GFR (MDRD)Non-Af 94, BUN/Creatinine Ratio 8.7 L, Glucose 87, Calcium 9.2, Phosphorus 2.8, Magnesium 1.8, Triglycerides 84, Cholesterol 142, LDL Cholesterol, Calc 66, VLDLCholesterol 17, HDL Cholesterol 59, Cholesterol/HDL Ratio 2.40 Imaging Radiology Impression Brain CT 02/24/25 10:15 IMPRESSION: 1. Small vessel ischemic/degenerative changes. 2. No acute intracranial hemorrhage, midline shift or mass effect. If symptoms persist, further evaluation with MRI is recommended. Red Alert: No acute intracranial hemorrhage. The critical information above was relayed directly by me by telephone to Jared James on 02/24/2025 at 10:37 am with readback verification. Reading Location: [facility] Head/Neck CTA 02/24/25 10:15 IMPRESSION: There is a high-grade stenosis in the proximal M1 horizontal component of the right middle cerebral, measuring 0.5 cm in length, axial image [id number]. Critical results were discussed with Dr. James by Dr. Reddy at the time ofdictation. Reading Location: [facility] Active Medications Active Medications Active Medications: Current Medications Generic Name Dose Route Start Last Admin Trade Name Freq PRN Reason Stop Dose Admin Acetaminophen 650 mg 02/24/25 13:56 Acetaminophen 325 Mg Tablet PO Q6H PRN PRN Pain 1-10 Or Fever>100.7 Al Hydroxide/Mg Hydroxide 30 ml 02/24/25 13:56 Mag Hydrox/Al Hydrox/Simeth 30 Ml Udc PO Q6H PRN PRN Gastric Burning Aspirin 81 mg 02/25/25 08:00 02/25/25 10:12 Aspirin 81 Mg Tab.Chew PO 81 mg DAILYCM BAUTISTA Administration Atorvastatin Calcium 40 mg 02/24/25 22:00 02/24/25 21:35 Atorvastatin Calcium 40 Mg Tablet PO Not Given QHS BAUTISTA Buspirone HCl 10 mg 02/25/25 14:00 Buspirone 5 Mg Tablet PO TID BAUTISTA Enoxaparin Sodium 40 mg 02/25/25 10:00 02/25/25 10:12 Enoxaparin 40 Mg/0.4 Ml Syringe SC 40 mg DAILY BAUTISTA Administration Famotidine 20 mg 02/24/25 22:00 02/25/25 10:12 Famotidine 20 Mg Tablet PO 20 mg BID BAUTISTA Administration Fluoxetine HCl 60 mg 02/25/25 10:30 Fluoxetine 20 Mg Capsule PO DAILY BAUTISTA Gabapentin 100 mg 02/25/25 10:16 Gabapentin 100 Mg Capsule PO TID PRN PRN for pain Hydralazine HCl 5 mg 02/24/25 13:56 Hydralazine 20 Mg/Ml Vial IV 02/25/25 13:56 Q30M PRN maintain BP parameters with HR <60 Sodium Chloride 1,000 mls @ 125 mls/hr 02/24/25 13:56 02/25/25 06:14 IV 125 mls/hr .Q8H BAUTISTA Administration Sodium Chloride 250 mls @ 15 mls/hr 02/24/25 14:20 IV .[id number] PRN Saline Flush Sodium Chloride 250 mls @ 15 mls/hr 02/24/25 14:20 IV .[id number] PRN Additional IVPB Infusion Labetalol HCl 10 - 20 mg 02/24/25 13:56 Labetalol 20 Mg/4 Ml Vial IV 02/25/25 13:56 Q10M PRN PRN maintain BP parameters with HR >/=60 Losartan Potassium 25 mg 02/25/25 10:30 Losartan Potassium 25 Mg Tablet PO DAILY [facility] Protocol Melatonin 3 mg 02/24/25 13:56 Melatonin 3 Mg Tablet PO QHS PRN PRN INSOMNIA Memantine 10 mg 02/25/25 10:30 Memantine Hydrochloride 10 Mg Tablet PO BID [facility] Nitroglycerin 0.4 mg 02/24/25 13:56 Nitroglycerin (Inpatient Use) 0.4 Mg Tab.Subl SL Q5M PRN CARDIAC/CHEST PAIN Non-Formulary Medication 17 gm 02/25/25 10:16 Polyethylene Glycol 3350 [Clearlax] PO DAILY PRN constipation Ondansetron HCl 4 mg 02/24/25 13:56 Ondansetron 4 Mg/2 Ml Vial IV Q8H PRN PRN NAUSEA/VOMITING Primidone 25 mg 02/25/25 22:00 Primidone 50 Mg Tablet PO QHS [facility] Senna tablet 02/25/25 10:16 Senna Tablet PO BID PRN constipation Senna/Docusate Sodium 2 tablet 02/24/25 13:56 Senna/Docusate Sodium 1 Tablet PO BID PRN PRN Constipation Sodium Chloride 10 - 40 ml 02/24/25 14:20 0.9% Saline Lock 10 Ml Syringe IV UD PRN SALINE FLUSH Trazodone HCl 50 mg 02/25/25 22:00 Trazodone 50 Mg Tablet PO QHS [facility] NIHSS NIHSS Nursing Documentation NIHSS Nursing Documentation: NIHSS: Ischemic Stroke/TIA Start: 02/24/25 13:56 Text: For PCU Patients: NIH and Neuro Check every 4 Status: Active hours, PRN and with change in RN caregiver. Freq: [id number] Protocol: Activity Type Activity Date Activity User E-sign Co-sign Detail Recorded Client Recorded Date Recorded By Document 02/25/25 07:33 DS [id number] 02/25/25 07:55 DS 02/25/25 07:33 NIH Stroke Scale [NIHSS] A score of 0 is normal or asymptomatic . Total possible score is 42. Inpatient: RN or Physician to activate a stroke alert for onset of new stroke symptoms or with NIHSS increase >/= 3 points. Following change in neurological status, NIHSS will be performed per physician order or more frequently PRN. -1a. Level of Consciousness 0 - Alert; keenly responsive -1b. LOC Questions 0 - Answers BOTH questions correctly -1c. LOC Commands 0 - Performs BOTH tasks correctly -2. Best Gaze 0 - Normal -3. Visual 1 - Partial hemianopia -4. Facial Palsy 2 - Partial paralysis ( total or near- total paralysis of lower face) -5a. Left Arm 1 - Drift; arm drifts downward but doesn?t hit the bed -5b. Right Arm 0 - No drift; arm holds 90 ( or 45) degrees for full 10 seconds -6a. Left Leg 0 - No drift; leg holds 30- degree position for full 5 seconds -6b. Right Leg 0 - No drift; leg holds 30- degree position for full 5 seconds -7. Limb Ataxia 1 - Present in 1 limb -8. Sensory 1 - Mild-to- moderate sensory loss; -9. Best Language 1 - Mild-to- moderate aphasia; -10. Dysarthria 1 = Mild-to- moderate dysarthria; -11. Extinction and Inattention 0 - No abnormality -Total 8 Query Text:A score of 0 is normal or asymptomatic. Total possible score is 42 . ED: Notify Physician for NIHSS increase by > / = 3 points. Inpatient: RN or Physician to activate a stroke alert for NIHSS increase of > / = 3 points. Coma Scale [Assess] -Eye Opening Spontaneous -Motor Obeys Commands -Verbal Confused [Total] -Coma Scale Total 14 NIHSS 1a. Level of Consciousness: 0 - Alert; keenly responsive 1b. LOC Questions: 2 - Answers NEITHER question correctly 1c. LOC Commands: 0 - Performs BOTH tasks correctly 2. Best Gaze: 0 - Normal 3. Visual: 0 - No visual loss 4. Facial Palsy: 2 - Partial paralysis (total or near-total paralysis of lower face) 5a. Left Arm: 3 - No effort against gravity; arm falls 5b. Right Arm: 0 - No drift; arm holds 90 (or 45) degrees for full 10 seconds 6a. Left Le - No drift; leg holds 30-degree position for full 5 seconds 6b. Right Le - No drift; leg holds 30-degree position for full 5 seconds 7. Limb Ataxia: 0 - Absent 8. Sensory: 1 - [id number] sensory loss; 9. Best Language: 0 - No aphasia; normal 10. Dysarthria: 0 - Normal 11. Extinction and Inattention: 1 - Visual, tactile, auditory, spatial, or personal inattention; Total: 9 02/25/25 1323 <Electronically signed by Salud Sinclair MD> Cosigner Signature (if applicable): CC: Dr. Citlaly العراقي MD~ Signed [facility] Work Phone: [phone] Procedure note [facility] Speech Pathology [address] [place] [address] Modified Barium Swallow Study MR#: [id number] Acct: [id number] Name: WILLEM EVANS Rep #:[id number] : 1945 79 From: Promise Bowden [facility]-GEOLOGICAL DRAFTER Modified Barium Swallow Patient Information Study Date: 02/25/25 Study Time: 12:30 Direct Billable Minutes: 108 Total Minutes procedure & reportin Diagnosis: Acute R MCA stroke I63.511 Referring Physician: Tabitha Whitfield Reason for Referral: Assess swallow function, assess risk for aspiration, and determine recommendations for least restrictive diet textures and compensatory strategies to improve safety of swallow. 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 See EMR for full PMH. The patient presented w/ left-sided weakness and facial droop. Patient had history of CVA in December 2024, did receive TNK and was transferred to a [facility]. 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 Adele ent's daughter had noticed patient with a slight left facial droop 2 days prior to patient's admission. This was followed by subjective weakness involvingthe left lower extremity the following day. She did check up on her mom and found patient to have flaccid paralysis involving the left upper extremity necessitating patient being brought to the emergency department. Imaging studiesobtained demonstrated a high-grade stenosis in the proximal M1 horizontal component of the right middle cerebral, measuring 0.5 cm in length. Call was placed for patient to have been transferred to [facility]. Patient's daughter however requested further transfer not to take place. Patient family wanted patient admitted at [facility]. ST consulted as part of CVA work up. BSE 02/25/2025 recommended NPO w/ plan for MBSS prior to diet advancement to further assess swallow function and aspiration risk. Brain MRI 02/25/2025 revealed, 1. Multiple foci of restricted diffusion in the right cerebral hemisphere consistent with acute embolic infarctions. 2. Multiple chronic cortical and lacunar infarctions as described. 3. Cerebral atrophy. Penetration-Aspiration Scale Penetration-Aspiration Scale: OBJECTIVE ASSESSMENT OF SWALLOW FUNCTION (QUANTITATIVE ? PER TRIAL): PENETRATION / ASPIRATION SCALE (EDGAR): 1 = does not enter airway 2 = enters airway/above vocal folds/ejected 3 = enters airway/above vocal folds/not ejected 4 = enters airway/contacts vocal folds/ejected 5 = enters airway/contacts vocal folds/not ejected 6 = enters airway/below vocal folds/ejected 7 = enters airway/below vocal folds/not ejected despite effort 8 = enters airway/below vocal folds/no effort VIDEOFLOROSCOPIC SCALE SCORE (EDGAR): Grade I = aspiration of material that has penetrated into the laryngeal vestibule, intact cough reflex Grade II = aspiration < 10 % of the bolus, intact cough reflex Grade III = aspiration of < 10 % of the bolus, reduced cough reflex or aspiration of > 10 % of the bolus, intact cough reflex Grade IV = aspiration of > 10 % of the bolus, reduced cough reflex Penetration-Aspiration Scale Score Thin Liquid via teaspoon: Result: 2= enter airway/above vocal folds/ejected Thin Liquid via teaspoon Trial 2: Result: 2= enter airway/above vocal folds/ejected Thin Liquid via small single sip: cup: Result: 1= does not enter airway Comment: Very small sip, <1 tsp. Thin Liquid via single sip: straw: Result: 7= enters airways/below vocal folds/not ejected despite effort Comment: Initially, pt scored PAS of 1; however, coughing occurred after fluoroscopy was turned off. Prior to next trial trace barium was in the trachea, likely aspiration of pharyngeal residues of previous trial. Thin Liquid via single sip: straw Trial 2: Result: 1= does not enter airway [place] Thick Liquid via small single sip: cup: Result: 5= enters airways/contacts vocal folds/not ejected [place] Thick Liquid via teaspoon: Result: 2= enter airway/above vocal folds/ejected [place] Thick Liquid via teaspoon Trial 2: Result: 2= enter airway/above vocal folds/ejected Pudding via teaspoon: Result: 1= does not enter airway Comment: Esophageal screen - Esophageal screen - Retention in the middle and lower esophagus. [place] Thick Liquid via teaspoon Trial 3: Result: 2= enter airway/above vocal folds/ejected Comment: Esophageal screen - Liquid wash had cleared majority of pudding from the middlesesophagus. Some barium retention in the lower esophagus. Discontinued study due to poor attention to task Oral Phase Labial Seal: Escape beyond mid-chin Tongue Control During Bolus Hold: Posterior escape of greater than half of bolus Bolus Transport/Lingual Motion: Repetitive/disorganized tongue motion Oral Residue: Residue collection on oral structures Pharyngeal Phase Initiation of Pharyngeal Swallow: Bolus head in valleculae Soft Palate Elevation: Trace column of contrast/air between soft palate and pharyngeal wall Laryngeal Elevation: Partial superior movement thyroid cart/partial apprx aryt- epig petiole Anterior Hyoid Excursion: Partial anterior movement Epiglottic Movement: Partial inversion Laryngeal Vestibule Closure at Height of Swallow: Incomplete; narrow column of air/contrast in laryngeal vestibule Pharyngeal Stripping Wave: Present - diminished Pharyngoesophageal Segment Opening: Complete distension and complete duration; no obstruction of flow Tongue Base Retraction: Narrow column of contrast between tongue base & post. pharyngeal wall Pharyngeal Residue: Collection of residue within or on pharyngeal structures Esophageal Phase Esophageal Clearance: Esophageal retention Diagnosis/Impression Diagnosis: Moderate oropharyngeal dysphagia R13.12; Esophageal dysphagia R13.14 Impression: The oral phase is primarily marked by... -Unilaterally weak labial seal w/ anterior loss of liquids. -Lingual pumping for A-P transport. -Pt's attention to task worsened as the evaluation progressed, so GEOLOGICAL DRAFTER held solidtrials. At bedside earlier today, pt consumed ~1/4 cookie w/ GEOLOGICAL DRAFTER present w/ verbal cues required to attend to the trialand verbal cues required to chew andswallow. Pt had anterior loss of portion of cookie at bedside, as well. Of note,during the MBSS, the GEOLOGICAL DRAFTER provided the patient a foam pad to hold in attempt to reduce fidgeting; however, pt attempted to bite into foam pad. GEOLOGICAL DRAFTER removed the pad from the pt's mouth w/o pt biting a piece off. The pharyngeal phase is primarily marked by... -Decreased pharyngeal motility w/ decreased TB retraction and pharyngeal stripping wave w/ resulting mild pharyngeal residues. -Decreased airway closure due to decrease anterior hyoid excursion, laryngeal elevation, and inconsistent epiglottic inversion. -Aspiration of thin liquids after the swallow w/ reflexive coughing that did notfully expel aspirated contrast. Deep laryngeal penetration of mildly/nectar thick liquids by cup to the vocal folds w/ocomplete ejection. The esophageal phase is primarily marked by... -Retention of pudding in the middle and lower esophagus. Liquid wash mostly cleared barium from themiddle esophagus. Continued retention of barium in the lower esophagus. Recommendations Diet: Puree Textures and Mildly Thick Liquids Compensatory Strategies: Small Bites, Liquid by Teaspoon Only, Slow Rate, Alternate bites/solids and sips/liquids and Sitting upright (During and 60min after po intake) Recommend Repeat Modified Barium Swallow: Yes (Repeat MBSS in 1-3 weeks to re- assess swallow function and aspiration risk to consider diet advancement.) Need for Skilled Speech Therapy Services: Yes Comment: -Train staff and family in use of strategies to decrease risk for aspiration andreflux aspiration. -Ongoing assessment of diet tolerance of recommended textures. Ok to trial minced and moist (IDDSI Level 5) or soft and bite size (IDDSI Level 6) solids w/GEOLOGICAL DRAFTER in upcoming sessions to consider diet advancement, especially if improved attention to task. -If pt is able to follow commands, train the patient in oropharyngeal exercise program (effortful swallow, lingual resistance, Chanel). Recommended Referrals: GI Consult (No immediate GI consult required as liquid wash appeared to clear much of the pudding retention in the esophagus; however, would consider the patient for OP GI consult) Education Completed: 1. Described result of evaluation., 4. Family/caregivers understand evaluation& agree w/ goals & tx plan. and 7. Pt requires further education on strategies & risks. Status Active ST Patient: Active Contact Information [facility] Speech Therapy:: Promise Craft M.A. CCC-GEOLOGICAL DRAFTER? Speech-Language Pathologist?? [facility] [address] [place] [address]? [email or web address]?? [phone] 02/25/25 1433 CAMERON Ceballos-GEOLOGICAL DRAFTER> Date/Time Promise Craft M.A. CCC-GEOLOGICAL DRAFTER Co-Signature Required for all Medicare patients Date/Time Co-Signature CC: ~ [facility]07-18-2025 Consult note [facility] Medical Records Department [address] [place] [address] Consultation - Neurology 02/25/25 1026 MR#: [id number] Acct: [id number] Name: WILLEM EVANS Rep #:[id number] : 1945 79 From: Salud Sinclair MD PCP: Dr. Citlaly العراقي MD Status:AD M IN Location: [place] [id number] Assessment and Plan: Stroke Assessment/Plan WILLEM EVANS is a 79 F with a history of CVA in December 2024, did receive TNK, knownRM1 stenosis who presents for evaluation of new L sided weakness. Concern for new RMCA stroke and MRI bRain with new watershed looking stroke. Etiology likely2/2 ICAD - Anti-platelet medication: recommend Plavix load 300mg and then doing Plavix 75mg+ASA 81mg x 90 days for her ICAD - for next 2 weeks, keep SBP 130-160/80-90, then BP goal should be <140/80 - LDL 66, A1c 6.0 - Occupational/ Physical therapy consults - NPO until swallow evaluation. IVF until able to take po - DVT prophylaxis with SCDs and heparin SQ - Vascular risk factor modification. 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 BP managementshould aim to achievelong term contorl in a reasonable amount of time, taking into consideration the individual patient's requirements and characteristics. Weight Management: Goal for BMI is 18.5 -24.9 kg/m2 Alcohol: No more than 2 drinks/day for men or 1 drink/day for non- women - Promote lifestyle modification: weight control, physical activity, moderation of alcohol intake, moderate sodium intake. Followup with PCP in 1-2 weeks, and in Neurology clinic in 6-12 weeks HPI Consult Data Date of Consult: 02/25/25 HPI Narrative HPI Narrative: WILLEM EVANS, is a 79 F who presents left-sided weakness and facial droop. Patient has history of CVAin December 2024, did receive TNK and was transferred to [facility]. 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 Patient's daughter had noticed patient with a slight left facial droop 2 days prior to patient's admission. This was followed by subjective weakness involving the left lower extremity the following day. She did check up on her mom and found patient to have flaccid paralysis involving the left upper extremity necessitating patient being brought to the emergency department. Imaging studies obtained demonstrated a high-grade stenosis in the proximal M1 horizontal component of the right middlecerebral, measuring 0.5 cm in length. Call was placed for patient to have been transferred to [facility]. Patient's daughter however requested further transfer not to take place. Patient family wanted patient placed placed in the facility instead. Neurologic History Patient at baseline only is aware of person and some family members. The day before she was having progressive weakness that worsened and could no longer walk. She had weakness in December and had facial droop then. Patient did not recovercompletely after the December stroke. They notice most of the weaknessat baseline onthe L arm. Can no longer walk on her own, someone always has to walk with her from now on even though she does not use assistive devices. She has baseline dementia, did not worsen in December -? General: Laying comfortably in bed; in no acute distress. -? HENT: Normal oropharynx and mucosa. Normal external appearance of ears and nose. Exophthalmos. -? Neck: Supple, no pain or tenderness -? CV:? No peripheral edema. -? Pulmonary:? Normal respiratory effort. -? Ext: No cyanosis, edema, or deformity -? Skin: No rash. Normal palpation of skin.? -? Musculoskeletal: full range of motion; no joint tenderness. Normal digits and nails by inspection. No clubbing. -? NEURO: -? Mental Status: The patient was alert and oriented to time, place, andperson. Normal recent/remote memory, concentration, and general fund of knowledge. -? Language: speech is clear.? Naming, repetition, fluency, and comprehension intact. -? Cranial Nerves: PERRL 4 mm/brisk. EOMI, visual ho full, R facial droop facial sensation intact, hearing intact Sternocleidomastoid and trapezius were equally strong. Soft palate raisesequally, no uvular deviations -? Motor: minimal movement in plane of bed with the LUE, antigravity in the RUE strongly b./l LE antigravity with no drift -? Tone: low tone in the LUE -? Sensation- difficult to assess, appears to have some extinction on the L -? Coordination: No dysmetria on [id number], finger follow finger or [id number]. -? 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 Depression Inflammatory bowel disease Anxiety Home Medications ?Medication ?Instructions ?Recorded ?Last Taken ?Type fluoxetine 40 mg capsule 60 mg PO DAILY anxiety 10/17 Unknown History multivitamin 1 tab PO DAILY suppliment Unknown History buspirone 10 mg tablet 10 mg PO TID mood 02/28/24 U nknown History melatonin 10 mg capsule 10 mg PO QHS PRN sleep 02/27 Unknown History memantine 10 mg tablet 10 mg PO BID memory 02/28/24 Unknown History polyethylene glycol 3350 17 17 g PO DAILY PRN constipa tion 03/08/24 Unknown History gram/dose oral powder (ClearLax) sennosides 8.6 mg tablet 17.2 mg PO BID PRN constipat ion 03/08/24 Unknown History (Evac-U-Gen (sennosides)) gabapentin 100 mg capsule 100 mg PO TID PRN PRN for pa in 12/18/24 Unknown History losartan 25 mg tablet 25 mg PO DAILY bp 12/18/24 U nknown History trazodone 50 mg tablet 50 mg PO QHS sleep 12/18/24 Unknown History aspirin 81 mg chewable tablet 1 tab PO DAILY supplimen t 02/24/25 Unknown History atorvastatin 40 mg tablet 40 mg PO QHS cholesterol Unknown History fluoxetine 20 mg capsule 60 mg PO DAILY depression Unknown History primidone 50 mg tablet (Mysoline) 25 mg PO QHS sleep/t remmors 02/24/25 Unknown History Allergy/AdvReac Type Severity Reaction Status Date / Time No Known Allergies Allergy Verified 02/24/25 09:29 Social History (Updated 02/24/25 @ 14:20 by Kera Vigil) household members: spouse housing: house Smoking Status: Never smoker Vital Signs Vital Signs Vital Signs: 02/24/25 11:27 02/24/25 13:00 02/24/25 13:44 Temperature 97.4 F L Temperature Source Pulse Rate 73 78 78 Respiratory Rate 18 18 16 Respiratory Effort Respiratory Depth Respiratory Pattern Blood Pressure 152/92 H 196/91 H 196/91 H Blood Pressure Mean 112 126 126 Blood Pressure Source Blood Pressure Position Blood Pressure Location Pulse Ox 98 96 94 Oxygen Delivery Method Room Air 02/24/25 13:55 02/24/25 14:00 02/24/25 14:22 Temperature 97.9 F Temperature Source Oral Pulse Rate 74 Respiratory Rate 16 Respiratory Effort Normal Non-Labored Respiratory Depth Normal Respiratory Pattern Normal Blood Pressure 197/76 H Blood Pressure Mean 116 Blood Pressure Source Monitor Blood Pressure Position Semi-Fowlers Blood Pressure Location Right Arm Pulse Ox 94 97 Oxygen Delivery Method Room Air Room Air Room Air 02/24/25 17:57 02/24/25 20:40 02/24/25 20:48 Temperature 98.6 F 97.4 F L Temperature Source Oral Temporal Pulse Rate 84 81 Respiratory Rate 14 16 Respiratory Effort Normal Non-Labored Respiratory Depth Normal Respiratory Pattern Normal Blood Pressure 164/84 H 184/77 H Blood Pressure Mean 110 112 Blood Pressure Source Monitor Monitor Blood Pressure Position Semi-Fowlers Semi-Fowlers Blood Pressure Location Right Arm Right Arm Pulse Ox 95 95 Oxygen Delivery Method Room Air Room Air Room Air 02/25/25 00:40 02/25/25 02:41 02/25/25 04:40 Temperature 97.5 F L 97.0 F L Temperature Source Temporal Temporal Pulse Rate 84 85 Respiratory Rate 15 16 Respiratory Effort Normal Non-Labored Respiratory Depth Normal Respiratory Pattern Normal Blood Pressure 177/85 H 174/82 H Blood Pressure Mean 115 112 Blood Pressure Source Monitor Monitor Blood Pressure Position Semi-Fowlers Semi-Fowlers Blood Pressure Location Right Arm Right Arm Pulse Ox 94 94 Oxygen Delivery Method Room Air Room Air Room Air 02/25/25 07:28 02/25/25 07:30 02/25/25 07:32 Temperature 97.8 F Temperature Source Oral Pulse Rate 84 Respiratory Rate 14 Respiratory Effort Normal Non-Labored Respiratory Depth Normal Respiratory Pattern Normal Blood Pressure 139/77 H Blood Pressure Mean 97 Blood Pressure Source Monitor Blood Pressure Position Semi-Fowlers Blood Pressure Location Right Arm Pulse Ox 95 94 Oxygen Delivery Method Room Air Room Air Room Air Weight Weight: 56.6 kg Body Mass Index (BMI) 20.0 EEG Results Procedure Details EEG Procedure Details: WILLEM EVANS is a 79 year old F with a past medical history of , who presentsfor evaluation of Electroencephalogram on DATE at TIME Lab / Micro Data 02/25/25 05:23 02/25/25 05:23 Labs: Laboratory Results - last 24 hr 02/24/25 09:35: PT 12.8, INR 1.0, APTT 28.7, Sodium 140, Potassium 3.4, Btglasvy151, Carbon Vjcjafh40.6, Anion Gap 14, BUN 9, Creatinine 0.63 L, Estim Creat Clear Calc 51.76, Est GFR (MDRD) Non-Af 90, BUN/Creatinine Ratio 14.9, Glucose 116 H, Calcium 9.5, Troponin T High Sens 20 H D 02/24/25 12:50: Troponin T Hi Sens 2 Hr 16 H 02/24/25 14:50: Troponin T Hi Sens 4Hr 19 H 02/25/25 05:23: WBC 10.0, RBC 3.88 L, Hgb 11.2 L, Hct 33.4 L, MCV 86.1, MCH 28.9, MCHC 33.5, RDW Std Deviation 45.6 H, RDW Coeff of Shon 14.4, Plt Count TNP,MPV 11.3, Immature Gran % (Auto) 0.300, Neut % (Auto) 75.8 H, Lymph % (Auto) 15.2 L, Wilcox % (Auto) 7.6, Eos % (Auto) 0.6, Baso % (Auto) 0.5, Absolute Neuts (auto) 7.5, Absolute Lymphs (auto) 1.51, Nucleated RBC % 0, Platelet Estimate ADEQUATE,Sodium 137, Potassium 3.5, Chloride 103, Carbon Dioxide 17.5 L, Anion Gap 17 H, BUN 5, Creatinine 0.53 L, Estim Creat Clear Calc 50.95, Est GFR (MDRD)Non-Af 94, BUN/Creatinine Ratio 8.7 L, Glucose 87, Calcium 9.2, Phosphorus 2.8, Magnesium 1.8, Triglycerides 84, Cholesterol 142, LDL Cholesterol, Calc 66, VLDLCholesterol 17, HDL Cholesterol 59, Cholesterol/HDL Ratio 2.40 Imaging Radiology Impression Brain CT 02/24/25 10:15 IMPRESSION: 1. Small vessel ischemic/degenerative changes. 2. No acute intracranial hemorrhage, midline shift or mass effect. If symptoms persist, further evaluation with MRI is recommended. Red Alert: No acute intracranial hemorrhage. The critical information above was relayed directly by me by telephone to Jared James on 02/24/2025 at 10:37 am with readback verification. Reading Location: [facility] Head/Neck CTA 02/24/25 10:15 IMPRESSION: There is a high-grade stenosis in the proximal M1 horizontal component of the right middle cerebral, measuring 0.5 cm in length, axial image [id number]. Critical results were discussed with Dr. Jmaes by Dr. Reddy at the time ofdictation. Reading Location[facility] Active Medications Active Medications Active Medications: Current Medications Generic Name Dose Route Start Last Admin Trade Name Freq PRN Reason Stop Dose Admin Acetaminophen 650 mg 02/24/25 13:56 Acetaminophen 325 Mg Tablet PO Q6H PRN PRN Pain 1-10 Or Fever>100.7 Al Hydroxide/Mg Hydroxide 30 ml 02/24/25 13:56 Mag Hydrox/Al Hydrox/Simeth 30 Ml Udc PO Q6H PRN PRN Gastric Burning Aspirin 81 mg 02/25/25 08:00 02/25/25 10:12 Aspirin 81 Mg Tab.Chew PO 81 mg DAILYCM BAUTISTA Administration Atorvastatin Calcium 40 mg 02/24/25 22:00 02/24/25 21:35 Atorvastatin Calcium 40 Mg Tablet PO Not Given QHS BAUTISTA Buspirone HCl 10 mg 02/25/25 14:00 Buspirone 5 Mg Tablet PO TID BAUTISTA Enoxaparin Sodium 40 mg 02/25/25 10:00 02/25/25 10:12 Enoxaparin 40 Mg/0.4 Ml Syringe SC 40 mg DAILY BAUTISTA Administration Famotidine 20 mg 02/24/25 22:00 02/25/25 10:12 Famotidine 20 Mg Tablet PO 20 mg BID BAUTISTA Administration Fluoxetine HCl 60 mg 02/25/25 10:30 Fluoxetine 20 Mg Capsule PO DAILY BAUTISTA Gabapentin 100 mg 02/25/25 10:16 Gabapentin 100 Mg Capsule PO TID PRN PRN for pain Hydralazine HCl 5 mg 02/24/25 13:56 Hydralazine 20 Mg/Ml Vial IV 02/25/25 13:56 Q30M PRN maintain BP parameters with HR <60 Sodium Chloride 1,000 mls @ 125 mls/hr 02/24/25 13:56 02/25/25 06:14 IV 125 mls/hr .Q8H BAUTISTA Administration Sodium Chloride 250 mls @ 15 mls/hr 02/24/25 14:20 IV .[id number] PRN Saline Flush Sodium Chloride 250 mls @ 15 mls/hr 02/24/25 14:20 IV .[id number] PRN Additional IVPB Infusion Labetalol HCl 10 - 20 mg 02/24/25 13:56 Labetalol 20 Mg/4 Ml Vial IV 02/25/25 13:56 Q10M PRN PRN maintain BP parameters with HR >/=60 Losartan Potassium 25 mg 02/25/25 10:30 Losartan Potassium 25 Mg Tablet PO DAILY [facility] Protocol Melatonin 3 mg 02/24/25 13:56 Melatonin 3 Mg Tablet PO QHS PRN PRN INSOMNIA Memantine 10 mg 02/25/25 10:30 Memantine Hydrochloride 10 Mg Tablet PO BID [facility] Nitroglycerin 0.4 mg 02/24/25 13:56 Nitroglycerin (Inpatient Use) 0.4 Mg Tab.Subl SL Q5M PRN CARDIAC/CHEST PAIN Non-Formulary Medication 17 gm 02/25/25 10:16 Polyethylene Glycol 3350 [Clearlax] PO DAILY PRN constipation Ondansetron HCl 4 mg 02/24/25 13:56 Ondansetron 4 Mg/2 Ml Vial IV Q8H PRN PRN NAUSEA/VOMITING Primidone 25 mg 02/25/25 22:00 Primidone 50 Mg Tablet PO QHS [facility] Senna tablet 02/25/25 10:16 Senna Tablet PO BID PRN constipation Senna/Docusate Sodium 2 tablet 02/24/25 13:56 Senna/Docusate Sodium 1 Tablet PO BID PRN PRN Constipation Sodium Chloride 10 - 40 ml 02/24/25 14:20 0.9% Saline Lock 10 Ml Syringe IV UD PRN SALINE FLUSH Trazodone HCl 50 mg 02/25/25 22:00 Trazodone 50 Mg Tablet PO QHS [facility] NIHSS NIHSS Nursing Documentation NIHSS Nursing Documentation: NIHSS: Ischemic Stroke/TIA Start: 02/24/25 13:56 Text: For PCU Patients: NIH and Neuro Check every 4 Status: Active hours, PRN and with change in RN caregiver. Freq: [id number] Protocol: Activity Type Activity Date Activity User E-sign Co-sign Detail Recorded Client Recorded Date Recorded By Document 02/25/25 07:33 DS [id number] 02/25/25 07:55 DS 02/25/25 07:33 NIH Stroke Scale [NIHSS] A score of 0 is normal or asymptomatic . Total possible score is 42. Inpatient: RN or Physician to activate a stroke alert for onset of new stroke symptoms or with NIHSS increase >/= 3 points. Following change in neurological status, NIHSS will be performed per physician order or more frequently PRN. -1a. Level of Consciousness 0 - Alert; keenly responsive -1b. LOC Questions 0 - Answers BOTH questions correctly -1c. LOC Commands 0 - Performs BOTH tasks correctly -2. Best Gaze 0 - Normal -3. Visual 1 - Partial hemianopia -4. Facial Palsy 2 - Partial paralysis ( total or near- total paralysis of lower face) -5a. Left Arm 1 - Drift; arm drifts downward but doesn?t hit the bed -5b. Right Arm 0 - No drift; arm holds 90 ( or 45) degrees for full 10 seconds -6a. Left Leg 0 - No drift; leg holds 30- degree position for full 5 seconds -6b. Right Leg 0 - No drift; leg holds 30- degree position for full 5 seconds -7. Limb Ataxia 1 - Present in 1 limb -8. Sensory 1 - Mild-to- moderate sensory loss; -9. Best Language 1 - Mild-to- moderate aphasia; -10. Dysarthria 1 = Mild-to- moderate dysarthria; -11. Extinction and Inattention 0 - No abnormality -Total 8 Query Text:A score of 0 is normal or asymptomatic. Total possible score is 42 . ED: Notify Physician for NIHSS increase by > / = 3 points. Inpatient: RN or Physician to activate a stroke alert for NIHSS increase of > / = 3 points. Coma Scale [Assess] -Eye Opening Spontaneous -Motor Obeys Commands -Verbal Confused [Total] -Coma Scale Total 14 NIHSS 1a. Level of Consciousness: 0 - Alert; keenly responsive 1b. LOC Questions: 2 - Answers NEITHER question correctly 1c. LOC Commands: 0 - Performs BOTH tasks correctly 2. Best Gaze: 0 - Normal 3. Visual: 0 - No visual loss 4. Facial Palsy: 2 - Partial paralysis (total or near-total paralysis of lower face) 5a. Left Arm: 3 - No effort against gravity; arm falls 5b. Right Arm: 0 - No drift; arm holds 90 (or 45) degrees for full 10 seconds 6a. Left Le - No drift; leg holds 30-degree position for full 5 seconds 6b. Right Le - No drift; leg holds 30-degree position for full 5 seconds 7. Limb Ataxia: 0 - Absent 8. Sensory: 1 - Bket-lo-jlieuuiz sensory loss; 9. Best Language: 0 - No aphasia; normal 10. Dysarthria: 0 - Normal 11. Extinction and Inattention: 1 - Visual, tactile, auditory, spatial, or personal inattention; Total: 9 02/25/25 1323 Cosigner Signature (if applicable): CC: Dr. Citlaly العراقي MD~ Signed [facility]07-18-2025 Progress note Author Tabitha Whitfield [facility] Note Date/Time February 25, 2025 10:2 2am [facility] Medical Records Department [address] [place] [address] Progress Note - Hospitalist 02/25/25 1021 MR#: [id number] Acct: [id number] Name: WILLEM EVANS Rep #:[id number] : 1945 79 From: Tabitha Whitfield MD PCP: Dr. Citlaly العراقي MD Status:AD M IN Location: [address] 1 Reason for Visit Chief Complaint: Left-sided weakness Subjective Subjective Patient is a 79-year-old female presenting with left-sided weakness. An assessment of acute CVA admitted admitted to a monitored bed where patient is currently undergoing evaluation. Patient is scheduled to undergo cookie swallowas well as MRI Objective Data Objective Data Vital Signs: Vital Signs Temp Pulse Resp BP Pulse Ox O2 Del Method 97.8 F 84 14 139/77 H 94 Room Air 02/25/25 07:28 02/25/25 07:28 02/25/25 07:28 02/25/25 07:28 02/25/25 07:32 02/25/25 07:32 Oxygen Delivery Method Room Air Weight: 56.6 kg Body Mass Index (BMI) 20.0 Intake & Output: Intake and Output for Last 24 Hours 02/23/25 02/24/25 02/25/25 23:59 23:59 23:59 Intake Total 1933.33 / 1933.33 881.25 / 881.25 Output Total 600 / 600 Balance 1333.33 / 1333.33 881.25 / 881.25 Lab / Micro Data 02/25/25 05:23 02/25/25 05:23 Labs: Laboratory Results - last 24 hr 02/24/25 09:35: PT 12.8, INR 1.0, APTT 28.7, Sodium 140, Potassium 3.4, Sgmwpnag243, Carbon Dioxide 22.6, Anion Gap 14, BUN 9, Creatinine 0.63 L, Estim Creat Clear Calc 51.76, Est GFR (MDRD) Non-Af 90, BUN/Creatinine Ratio 14.9, Glucose 116 H, Calcium 9.5, Troponin T High Sens 20 H D 02/24/25 12:50: Troponin T Hi Sens 2 Hr 16 H 02/24/25 14:50: Troponin T Hi Sens 4Hr 19 H 02/25/25 05:23: WBC 10.0, RBC 3.88 L, Hgb 11.2 L, Hct 33.4 L, MCV 86.1, MCH 28.9, MCHC 33.5, RDW Std Deviation 45.6 H, RDW Coeff of Shon 14.4, Plt Count TNP,MPV 11.3, Immature Gran % (Auto) 0.300, Neut % (Auto) 75.8 H, Lymph % (Auto) 15.2 L, Wilcox % (Auto) 7.6, Eos % (Auto) 0.6, Baso % (Auto) 0.5, Absolute Neuts (auto) 7.5, Absolute Lymphs (auto) 1.51, Nucleated RBC % 0, Platelet Estimate ADEQUATE, Sodium 137, Potassium 3.5, Chloride 103, Carbon Dioxide 17.5 L, Anion Gap 17 H, BUN 5, Creatinine 0.53 L, Estim Creat Clear Calc 50.95, Est GFR (MDRD)Non-Af 94, BUN/Creatinine Ratio 8.7 L, Glucose 87, Calcium 9.2, Phosphorus 2.8, Magnesium 1.8, Triglycerides 84, Cholesterol 142, LDL Cholesterol, Calc 66, VLDLCholesterol 17, HDL Cholesterol 59, Cholesterol/HDL Ratio 2.40 Radiography Diagnostic Testing: Radiology Impression Brain CT 02/24/25 10:15 IMPRESSION: 1. Small vessel ischemic/degenerative changes. 2. No acute intracranial hemorrhage, midline shift or mass effect. If symptoms persist, further evaluation with MRI is recommended. Red Alert: No acute intracranial hemorrhage. The critical information above was relayed directly by me by telephone to Jared James on 02/24/2025 at 10:37 am with readback verification. Reading Location: [facility] Head/Neck CTA 02/24/25 10:15 IMPRESSION: There is a high-grade stenosis in the proximal M1 horizontal component of the right middle cerebral, measuring 0.5 cm in length, axial image [id number]. Critical results were discussed with Dr. James by Dr. Reddy at the time ofdictation. Reading Location: [facility] Physical Exam Narrative GENERAL: Dysarthric HEENT: Atraumatic; normocephalic EYES; Anicteric, Normal Conjunctiva NECK; supple, normal thyroid, RESPIRATORY: Diminished to auscultation CARDIOVASCULAR: Regular S1 S2, GI: soft, normoactive bowel sounds, : No Renal angle tenderness; EXTREMITIES: No edema, no clubbing, MUSCULOSKELETAL: no muscle wasting NEURO: Awake; left facial droop with flaccid paralysis involving the left upperextremity SKIN: No Rash PSYCH; Flat affect Assessment & Plan Assessment/Plan (1) Acute right MCA stroke: PLAN: Plan Patient is a 79-year-old female presenting with left-sided weakness 1. Acute CVA ? Patient presented with left facial droop with left-sided weakness. Imaging studies obtained in the ED did show a high-grade stenosis in the proximal M1 horizontal component of the right middle cerebral, measuring 0.5 cm in length. Patient was accepted for transfer to [facility] regarding her large vessel occlusion for intervention patient family however declined for patient johanny transferred. Patient admitted to a monitored bed requested for PT/OT/ST evaluation. Patient started on antiplatelet therapy with aspirin as well as atorvastatin. 2D echo and an MRI ordered as part of patient's evaluation. Consult placed to [facility] teleneuro. Patient was not a candidate for TNK given the fact that her last known well is unknown ? 02/25/2025; patient scheduled to undergo cookie swallow and MRI #2. Previous CVA ? Patient did receive TNK and transferred to a [facility] where no intervention was done regarding her high-grade stenosis in the proximal M1?right MCA 3. Essential hypertension ? Will proceed permissive hypertension protocol 4. Depression with anxiety ? Patient is on fluoxetine as well as buspirone 5. Dementia ? Patient is on memantine 10 mg twice daily will resume once home meds have beenreconciled 6. Anemia ? Secondary to chronic disorder monitoring H&H and transfuse if patient becomes symptomatic or hemoglobin falls below 7 7. DVT prophylaxis ? Subcu Lovenox Time spent in the patient's overall evaluation,decision-making process, review of diagnostic data, adjustment of management, discussion with other providers, nursing nursing and ancillary staff involved in patient's care documentation, 38 Minutes Charges/Coding Visit Charges Inpatient E&M: 00626 Subs Hosp L2 NIHSS NIHSS Nursing Documentation NIHSS Nursing Documentation: NIHSS: Ischemic Stroke/TIA Start: 02/24/25 13:56 Text: For PCU Patients: NIH and Neuro Check every 4 Status: Active hours, PRN and with change in RN caregiver. Freq: [id number] Protocol: Activity Type Activity Date Activity User E-sign Co-sign Detail Recorded Client Recorded Date Recorded By Document 02/25/25 07:33 DS [id number] 02/25/25 07:55 DS 02/25/25 07:33 NIH Stroke Scale [NIHSS] A score of 0 is normal or asymptomatic . Total possible score is 42. Inpatient: RN or Physician to activate a stroke alert for onset of new stroke symptoms or with NIHSS increase >/= 3 points. Following change in neurological status, NIHSS will be performed per physician order or more frequently PRN. -1a. Level of Consciousness 0 - Alert; keenly responsive -1b. LOC Questions 0 - Answers BOTH questions correctly -1c. LOC Commands 0 - Performs BOTH tasks correctly -2. Best Gaze 0 - Normal -3. Visual 1 - Partial hemianopia -4. Facial Palsy 2 - Partial paralysis ( total or near- total paralysis of lower face) -5a. Left Arm 1 - Drift; arm drifts downward but doesn?t hit the bed -5b. Right Arm 0 - No drift; arm holds 90 ( or 45) degrees for full 10 seconds -6a. Left Leg 0 - No drift; leg holds 30- degree position for full 5 seconds -6b. Right Leg 0 - No drift; leg holds 30- degree position for full 5 seconds -7. Limb Ataxia 1 - Present in 1 limb -8. Sensory 1 - Mild-to- moderate sensory loss; -9. Best Language 1 - Mild-to- moderate aphasia; -10. Dysarthria 1 = Mild-to- moderate dysarthria; -11. Extinction and Inattention 0 - No abnormality -Total 8 Query Text:A score of 0 is normal or asymptomatic. Total possible score is 42 . ED: Notify Physician for NIHSS increase by > / = 3 points. Inpatient: RN or Physician to activate a stroke alert for NIHSS increase of > / = 3 points. Coma Scale [Assess] -Eye Opening Spontaneous -Motor Obeys Commands -Verbal Confused [Total] -Coma Scale Total 14 02/25/25 1022 <Electronically signed by Tabitha Whitfield MD> Cosigner Signature (if applicable): CC: ~ Signed [facility] Work Phone: [phone] Progress note [facility] Medical Records Department [address] [place] [id number] Progress Note - Hospitalist 02/25/25 1021 MR#: [id number] Acct: [id number] Name: WILLEM EVANS Rep #:[id number] : 1945 79 From: Tabitha Whitfield MD PCP: Dr. Citlaly العراقي MD Status:AD M IN Location: [place] [address] Reason for Visit Chief Complaint: Left-sided weakness Subjective Subjective Patient is a 79-year-old female presenting with left-sided weakness. An assessment of acute CVA admitted admitted to a monitored bed where patient is currently undergoing evaluation. Patient is scheduled to undergo cookie swallowas well as MRI Objective Data Objective Data Vital Signs: Vital Signs Temp Pulse Resp BP Pulse Ox O2 Del Method 97.8 F 84 14 139/77 H 94 Room Air 02/25/25 07:28 02/25/25 07:28 02/25/25 07:28 02/25/25 07:28 02/25/25 07:32 02/25/25 07:32 Oxygen Delivery Method Room Air Weight: 56.6 kg Body Mass Index (BMI) 20.0 Intake & Output: Intake and Output for Last 24 Hours 02/23/25 02/24/25 02/25/25 23:59 23:59 23:59 Intake Total 1933.33 / 1933.33 881.25 / 881.25 Output Total 600 / 600 Balance 1333.33 / 1333.33 881.25 / 881.25 Lab / Micro Data 02/25/25 05:23 02/25/25 05:23 Labs: Laboratory Results - last 24 hr 02/24/25 09:35: PT 12.8, INR 1.0, APTT 28.7, Sodium 140, Potassium 3.4, [id number], Carbon Rpxjyqo52.6, Anion Gap 14, BUN 9, Creatinine 0.63 L, Estim Creat Clear Calc 51.76, Est GFR (MDRD) Non-Af 90, BUN/Creatinine Ratio 14.9, Glucose 116 H, Calcium 9.5, Troponin T High Sens 20 H D 02/24/25 12:50: Troponin T Hi Sens 2 Hr 16 H 02/24/25 14:50: Troponin T Hi Sens 4Hr 19 H 02/25/25 05:23: WBC 10.0, RBC 3.88 L, Hgb 11.2 L, Hct 33.4 L, MCV 86.1, MCH 28.9, MCHC 33.5, RDW Std Deviation 45.6 H, RDW Coeff of Shon 14.4, Plt Count TNP,MPV 11.3, Immature Gran % (Auto) 0.300, Neut % (Auto) 75.8 H, Lymph % (Auto) 15.2 L, Wilcox % (Auto) 7.6, Eos % (Auto) 0.6, Baso % (Auto) 0.5, Absolute Neuts (auto) 7.5, Absolute Lymphs (auto) 1.51, Nucleated RBC % 0, Platelet Estimate ADEQUATE,Sodium 137, Potassium 3.5, Chloride 103, Carbon Dioxide 17.5 L, Anion Gap 17 H, BUN 5, Creatinine 0.53 L, Estim Creat Clear Calc 50.95, Est GFR (MDRD)Non-Af 94, BUN/Creatinine Ratio 8.7 L, Glucose 87, Calcium 9.2, Phosphorus 2.8, Magnesium 1.8, Triglycerides 84, Cholesterol 142, LDL Cholesterol, Calc 66, VLDLCholesterol 17, HDL Cholesterol 59, Cholesterol/HDL Ratio 2.40 Radiography Diagnostic Testing: Radiology Impression Brain CT 02/24/25 10:15 IMPRESSION: 1. Small vessel ischemic/degenerative changes. 2. No acute intracranial hemorrhage, midline shift or mass effect. If symptoms persist, further evaluation with MRI is recommended. Red Alert: No acute intracranial hemorrhage. The critical information above was relayed directly by me by telephone to Jared James on 02/24/2025 at 10:37 am with readback verification. Reading Location: [facility] Head/Neck CTA 02/24/25 10:15 IMPRESSION: There is a high-grade stenosis in the proximal M1 horizontal component of the right middle cerebral, measuring 0.5 cm in length, axial image [id number]. Critical results were discussed with Dr. James by Dr. Reddy at the time ofdictation. Reading Location[facility] Physical Exam Narrative GENERAL: Dysarthric HEENT: Atraumatic; normocephalic EYES; Anicteric, Normal Conjunctiva NECK; supple, normal thyroid, RESPIRATORY: Diminished to auscultation CARDIOVASCULAR: Regular S1 S2, GI: soft, normoactive bowel sounds, : No Renal angle tenderness; EXTREMITIES: No edema, no clubbing, MUSCULOSKELETAL: no muscle wasting NEURO: Awake; left facial droop with flaccid paralysis involving the left upperextremity SKIN: No Rash PSYCH; Flat affect Assessment & Plan Assessment/Plan (1) Acute right MCA stroke: PLAN: Plan Patient is a 79-year-old female presenting with left-sided weakness 1. Acute CVA ? Patient presented with left facial droop with left-sided weakness. Imaging studies obtained in the ED did show a high-grade stenosis in the proximal M1 horizontal component of the right middle cerebral, measuring 0.5 cm in length. Patient was accepted for transfer to [facility] regarding her large vessel occlusion for intervention patient family however declined for patient johanny transferred. Patient admitted to a monitored bed requested for PT/OT/ST evaluation. Patient started on antiplatelet therapy with aspirin as well as atorvastatin. 2D echo and an MRI ordered as part of patient's evaluation. Consult placed to [facility]. Patient was not a candidate for TNK given the fact that her last known well is unknown ? 02/25/2025; patient scheduled to undergo cookie swallow and MRI #2. Previous CVA ? Patient did receive TNK and transferred to a [facility] where no intervention was done regarding her high-grade stenosis in the proximal M1?right MCA 3. Essential hypertension ? Will proceed permissive hypertension protocol 4. Depression with anxiety ? Patient is on fluoxetine as well as buspirone 5. Dementia ? Patient is on memantine 10 mg twice daily will resume once home meds have beenreconciled 6. Anemia ? Secondary to chronic disorder monitoring H&H and transfuse if patient becomes symptomatic or hemoglobin falls below 7 7. DVT prophylaxis ? Subcu Lovenox Time spent in the patient's overall evaluation,decision-making process, review of diagnostic data, adjustment of management, discussion with other providers, nursing nursing and ancillary staff involved in patient's care documentation, 38 Minutes Charges/Coding Visit Charges Inpatient E&M: 68362 Subs Hosp L2 NIHSS NIHSS Nursing Documentation NIHSS Nursing Documentation: NIHSS: Ischemic Stroke/TIA Start: 02/24/25 13:56 Text: For PCU Patients: NIH and Neuro Check every 4 Status: Active hours, PRN and with change in RN caregiver. Freq: [id number] Protocol: Activity Type Activity Date Activity User E-sign Co-sign Detail Recorded Client Recorded Date Recorded By Document 02/25/25 07:33 DS [id number] 02/25/25 07:55 DS 02/25/25 07:33 NIH Stroke Scale [NIHSS] A score of 0 is normal or asymptomatic . Total possible score is 42. Inpatient: RN or Physician to activate a stroke alert for onset of new stroke symptoms or with NIHSS increase >/= 3 points. Following change in neurological status, NIHSS will be performed per physician order or more frequently PRN. -1a. Level of Consciousness 0 - Alert; keenly responsive -1b. LOC Questions 0 - Answers BOTH questions correctly -1c. LOC Commands 0 - Performs BOTH tasks correctly -2. Best Gaze 0 - Normal -3. Visual 1 - Partial hemianopia -4. Facial Palsy 2 - Partial paralysis ( total or near- total paralysis of lower face) -5a. Left Arm 1 - Drift; arm drifts downward but doesn?t hit the bed -5b. Right Arm 0 - No drift; arm holds 90 ( or 45) degrees for full 10 seconds -6a. Left Leg 0 - No drift; leg holds 30- degree position for full 5 seconds -6b. Right Leg 0 - No drift; leg holds 30- degree position for full 5 seconds -7. Limb Ataxia 1 - Present in 1 limb -8. Sensory 1 - Mild-to- moderate sensory loss; -9. Best Language 1 - Mild-to- moderate aphasia; -10. Dysarthria 1 = Mild-to- moderate dysarthria; -11. Extinction and Inattention 0 - No abnormality -Total 8 Query Text:A score of 0 is normal or asymptomatic. Total possible score is 42 . ED: Notify Physician for NIHSS increase by > / = 3 points. Inpatient: RN or Physician to activate a stroke alert for NIHSS increase of > / = 3 points. Coma Scale [Assess] -Eye Opening Spontaneous -Motor Obeys Commands -Verbal Confused [Total] -Coma Scale Total 14 02/25/25 1022 Cosigner Signature (if applicable): CC: ~ Signed [facility]07-17-2025 History and physical note Author Tabitha Whitfield [facility] Note Date/Time February 24, 2025 12:5 3pm [facility] Medical Records Department [address] [place] [address] H&P Exam - Hospitalist 02/24/25 1227 MR#: [id number] Acct: [id number] Name: WILLEM EVANS Rep #:[id number] : 1945 79 From: Tabitha Whitfield MD PCP: Dr. Citlaly العراقي MD Status:AD M IN Location: [facility] HAM096- 1 HPI - General General Date of Admission: 02/24/25 HPI Narrative WILLEM EVANS, is a 79 F who presents left-sided weakness and facial droop. Patient has history of CVA in December 2024, did receive TNK and was transferred to [facility]. 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 Patient's daughter had noticed patient with a slight left facial droop 2 days prior to patient's admission. This was followed by subjective weakness involving the left lower extremity the following day. She did check up on her mom and found patient to have flaccid paralysis involving the left upper extremity necessitating patient being brought to the emergency department. Imaging studies obtained demonstrated a high-grade stenosis in the proximal M1 horizontal component of the right middle cerebral, measuring 0.5 cm in length. Call was placed for patient to have been transferred to [facility]. Patient's daughter however requested further transfer not to take place. Patient family wanted patient placed placed in the facility instead. 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 Depression Inflammatory bowel disease Anxiety Home Medications ?Medication ?Instructions ?Recorded ?Last Taken ?Type fluoxetine 40 mg capsule 60 mg PO DAILY 10/17/21 Unkn own History multivitamin 1 tab PO DAILY 10/17/21 Unkn own History buspirone 10 mg tablet 10 mg PO TID 02/28/24 Unknow n History melatonin 10 mg capsule 10 mg PO QHS PRN sleep 02/27 Unknown History memantine 10 mg tablet 10 mg PO BID 02/28/24 Unknow n History polyethylene glycol 3350 17 17 g PO DAILY 03/08/24 Unk nown History gram/dose oral powder (ClearLax) sennosides 8.6 mg tablet 17.2 mg PO BID 03/08/24 Unkn own History (Evac-U-Gen (sennosides)) gabapentin 100 mg capsule 100 mg PO TID PRN PRN for pa in 12/18/24 Unknown History losartan 25 mg tablet 25 mg PO DAILY 12/18/24 Unkn own History trazodone 50 mg tablet 50 mg PO QHS 12/18/24 Unknow n History Allergy/AdvReac Type Severity Reaction Status Date / Time No Known Allergies Allergy Verified 02/24/25 09:29 Social History household members: spouse housing: house Smoking Status: Never smoker ROS ROS Narrative Difficult to elicit with patient being dysarthric Vital Signs Vital Signs Vital Signs: 02/24/25 09:29 02/24/25 09:44 02/24/25 09:44 Temperature 98.0 F Temperature Source Oral Pulse Rate 85 78 Respiratory Rate 22 H 21 H Blood Pressure 152/85 H 154/77 H Blood Pressure Mean 107 102 Pulse Ox 95 95 Oxygen Delivery Method Room Air Room Air Room Air 02/24/25 10:08 02/24/25 11:27 Temperature Temperature Source Pulse Rate 77 73 Respiratory Rate 16 18 Blood Pressure 165/80 H 152/92 H Blood Pressure Mean 108 112 Pulse Ox 97 98 Oxygen Delivery Method Room Air Weight Weight: 57.5 kg Body Mass Index (BMI) 20.5 Physical Exam Narrative GENERAL: Dysarthric HEENT: Atraumatic; normocephalic EYES; Anicteric, Normal Conjunctiva NECK; supple, normal thyroid, RESPIRATORY: Diminished to auscultation CARDIOVASCULAR: Regular S1 S2, GI: soft, normoactive bowel sounds, : No Renal angle tenderness; EXTREMITIES: No edema, no clubbing, MUSCULOSKELETAL: no muscle wasting NEURO: Awake; left facial droop with flaccid paralysis involving the left upperextremity SKIN: No Rash PSYCH; Flat affect Results Lab / Micro Data 02/24/25 09:35 02/24/25 09:35 Labs: Laboratory Results - last 24 hr 02/24/25 09:35: WBC 10.1, RBC 3.92 L, Hgb 11.4 L, Hct 34.4 L, MCV 87.8, MCH 29.1, MCHC 33.1, RDW Std Deviation 46.4 H, RDW Coeff of Shon 14.4, Plt Count 406,MPV 10.2, Immature Gran % (Auto) 0.300, Neut % (Auto) 77.1 H, Lymph % (Auto) 14.0 L, Wilcox % (Auto) 7.6, Eos % (Auto) 0.4, Baso % (Auto) 0.6, Absolute Neuts (auto) 7.8 H, Absolute Lymphs (auto) 1.42, Nucleated RBC % 0, PT 12.8, INR 1.0, APTT 28.7, Sodium 140, Potassium 3.4, Chloride 103, Carbon Dioxide 22.6, Anion Gap 14, BUN 9, Creatinine 0.63 L, Estim Creat Clear Calc 51.76, Est GFR (MDRD) Non-Af 90, BUN/Creatinine Ratio 14.9, Glucose 116 H, Calcium 9.5, Troponin T High Sens 20 H D 02/24/25 09:39: POC Glucose 113 H Imaging Radiology Impression Brain CT 02/24/25 10:15 IMPRESSION: 1. Small vessel ischemic/degenerative changes. 2. No acute intracranial hemorrhage, midline shift or mass effect. If symptoms persist, further evaluation with MRI is recommended. Red Alert: No acute intracranial hemorrhage. The critical information above was relayed directly by me by telephone to Jared James on 02/24/2025 at 10:37 am with readback verification. Reading Location: [facility] Head/Neck CTA 02/24/25 10:15 IMPRESSION: There is a high-grade stenosis in the proximal M1 horizontal component of the right middle cerebral, measuring 0.5 cm in length, axial image [id number]. Critical results were discussed with Dr. James by Dr. Reddy at the time ofdictation. Reading Location: [facility] Assessment & Plan Assessment/Plan (1) Acute right MCA stroke: PLAN: Plan Patient is a 79-year-old female presenting with left-sided weakness 1. Acute CVA ? Patient presented with left facial droop with left-sided weakness. Imaging studies obtained in the ED did show a high-grade stenosis in the proximal M1 horizontal component of the right middle cerebral, measuring 0.5 cm in length. Patient was accepted for transfer to [facility] regarding her large vessel occlusion for intervention patient family however declined for patient johanny transferred. Patient admitted to a monitored bed requested for PT/OT/ST evaluation. Patient started on antiplatelet therapy with aspirin as well as atorvastatin. 2D echo and an MRI ordered as part of patient's evaluation. Consult placed to [facility]. Patient was not a candidate for TNK given the fact that her last known well is unknown #2. Previous CVA ? Patient did receive TNK and transferred to a [facility] where no intervention was done regarding her high-grade stenosis in the proximal M1?right MCA 3. Essential hypertension ? Will proceed permissive hypertension protocol 4. Depression with anxiety ? Patient is on fluoxetine as well as buspirone 5. Dementia ? Patient is on memantine 10 mg twice daily will resume once home meds have beenreconciled 6. Anemia ? Secondary to chronic disorder monitoring H&H and transfuse if patient becomes symptomatic or hemoglobin falls below 7 7. DVT prophylaxis ? Subcu Lovenox Time spent in the patient's overall evaluation,decision-making process, review of diagnostic data, adjustment of management, discussion with other providers, nursing nursing and ancillary staff involved in patient's care documentation, 75 Minutes Advance planning; did discuss with the patient and family (patient's daughter) regarding advanced directives as well as CODE STATUS. Did explain the various scenarios involved ( FULL CODE, DNR CCA, DNR CCA with no intubation, and DNR CC and what each meant) patient elected to be DNR CCA no intubation. Order was placed. Time spent on discussion 16 minutes. Charges/Coding Multi Select Codes Visit Charges Visit Charges: 15245 Init Hosp L3 Hospitalists' Procedures Procedures: 58311 Advncd Care Plan 30 Min 02/24/25 1253 <Electronically signed by Tabitha Whitfield MD> Cosigner Signature (if applicable): CC: Dr. Tabitha Whitfield MD; Dr. Citlaly العراقي MD~ Signed [facility] Work Phone: 1(660) 926-874107-17-2025 Discharge summary Author Jared James [facility] Note Date/Time February 24, 2025 12:1 8pm [facility] Medical Records Department [address] [place] [address] Emergency Department Summary 02/24/25 MR#: [id number] Acct: [id number] Name: WILLEM EVANS Rep #:[id number] : 1945 79 From: Jared James DO PCP: Dr. Citlaly العراقي MD Status:RE G ER Location: ED HPI History of Present Illness Chief Complaint: Neuro S/Sx Narrative Narrative: Patient is a 79-year-old female with past medical history of dementia, hyperlipidemia, anxiety, IBS, depression who presented to the emergency department with concern for left-sided facial droop, left arm weakness. According to the who provides history of present illness secondary to her dementia he states that few days ago he noted that she had some left-sided facial droop. He states that yesterday she had blood work obtained around 9:00 in the morning and noted that she had some weakness in her left arm as well thathad progressively worsened into today therefore they had her sent here for further evaluation and management. They deny blood thinning medications denies any falls. was also inquiring about likely placement into a facility lisa states that he cannot care for her anymore at home. 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 Depression Inflammatory bowel disease Anxiety Home Medications ?Medication ?Instructions ?Recorded ?Last Taken ?Type fluoxetine 40 mg capsule 60 mg PO DAILY 10/17/21 Unkn own History multivitamin 1 tab PO DAILY 10/17/21 Unkn own History buspirone 10 mg tablet 10 mg PO TID 02/28/24 Unknow n History melatonin 10 mg capsule 10 mg PO QHS PRN sleep 02/27 Unknown History memantine 10 mg tablet 10 mg PO BID 02/28/24 Unknow n History polyethylene glycol 3350 17 17 g PO DAILY 03/08/24 Unk nown History gram/dose oral powder (ClearLax) sennosides 8.6 mg tablet 17.2 mg PO BID 03/08/24 Unkn own History (Evac-U-Gen (sennosides)) gabapentin 100 mg capsule 100 mg PO TID PRN PRN for pa in 12/18/24 Unknown History losartan 25 mg tablet 25 mg PO DAILY 12/18/24 Unkn own History trazodone 50 mg tablet 50 mg PO QHS 12/18/24 Unknow n History Allergy/AdvReac Type Severity Reaction Status Date / Time No Known Allergies Allergy Verified 02/24/25 09:29 Social History household members: spouse housing: house Smoking Status: Never smoker ROS ROS ED ROS Narrative Constitutional: Denies headache Eyes: Denies double vision blurry vision Cardiovascular: Denies chest pain Respiratory: Denies shortness of breath Abdomen: Denies nausea vomit diarrhea Neurological: Complains of left-sided facial droop left arm weakness as noted above Musculoskeletal: Denies back pain Skin: Denies any rashes or lesions EXAM Physical Exam Narrative Exam Narrative: General: Patient lying in bed rest comfortably did not appear to be in acute distress Head: Atraumatic, normocephalic Eyes: PERRL bilaterally, EOMI bilaterally, no conjunctival injection noted Neck: Soft, supple, trachea midline Cardiovascular: Regular rate and rhythm Respiratory: Clear to auscultation bilaterally Extremities: +2/5 strength noted in the left upper extremity and the left lower extremity, +4/5 strength noted in the right upper and lower extremity Neurological: Patient is following commands knew that she was at a hospital she knew that it was 2024 she was confused and thought it was spring. She was able to tell me there was a clock on the wall. Patient does have significant left arm weakness as well as left-sided facial droop. Patient has left lower extremity weakness more on the left when compared to the right although both areweak Skin: Warm, dry, intact no rashes or lesions noted Const Vital Signs: 02/24/25 09:29 02/24/25 09:44 02/24/25 09:44 Temperature 98.0 F Temperature Source Oral Pulse Rate 85 78 Respiratory Rate 22 H 21 H Blood Pressure 152/85 H 154/77 H Blood Pressure Mean 107 102 Pulse Ox 95 95 Oxygen Delivery Method Room Air Room Air Room Air 02/24/25 10:08 02/24/25 11:27 Temperature Temperature Source Pulse Rate 77 73 Respiratory Rate 16 18 Blood Pressure 165/80 H 152/92 H Blood Pressure Mean 108 112 Pulse Ox 97 98 Oxygen Delivery Method Room Air MDM MDM MDM Narrative Medical decision making narrative: Patient is a 79-year-old female who presented to the emergency department for concern for left-sided facial droop and left arm weakness. On the differential diagnosis includes but limited to intracranial hemorrhage, ischemic stroke, hypoglycemia, electrolyte abnormality. Once workup is obtained and reviewed shewill be reevaluated. Patient is not a tenecteplase candidate as her symptoms started a few days ago. Patient is also not an LVO candidate as once again her symptoms started more than 24 hours ago. Patient's CBC was reviewed and showed no evidence leukocytosis white blood count10.1, hemoglobin 1.4, plate count of 406. Patient INR normal at 1, PT of 12.8. Patient sodium was 140, potassium was noted to be normal at 3.4, creatinine 0.63. Patient's troponin was 20 EKG reviewed showed sinus rhythm with a rate of[address] changes noted in V2 and V3. When compared to EKG from January 24, 2025 this was largely unchanged. Patient's [id number] glucose was 113. Patient CT head and brain without contrast showed small vessel ischemic/degenerative changes no acute intracranial hemorrhage midline shift or mass effect recommending MRI if symptoms persist. Patient CTA head and neck reviewed and showed high-grade stenosis in the proximal M1 horizontal component of the right middle cerebral measuring 0.5 cm in length. I reached out to [facility] teleneurology to discuss this given her symptoms have progressively worsened despite them starting in a few days ago to see if they would suggest intervention or not. I originally spoke with Dr. Sinclair after she was done evaluating my other patient and she is requesting I go through the transfer line so she could see the image to further evaluate. During this time Dr. Lemos called back and I had further discussion with him and he states that he would recommend transfer down to [facility] for further evaluation given that she has progressively worsened despite her symptoms starting a few days ago and unclear last known well. He was recommending aspirin loaded with Plavix as well. Dr. Sinclair also called back again and I discussed with her the case again as well and she also would recommend transfer down in case she needs emergent stenting if she still continues to progressively worsen I notified her that the family at bedside is still refusing transfer. She told me that they will not plan on seeing the patient tomorrow then unless the hospitalist put a formal consult in we will notify the hospitalist of this as well. I went back in to update the family/significant other and the daughter had arrived who is a nurse practitioner and the neurology unit and I notified them that the recommendation was transfer to [facility] and she is refusing this she states that she does not want intervention at this point in time she states thatshe does not want Plavix load either. She states that she wants the patient placed into a nursing facility. At this point time will discuss case with hospitalist for admission. Discussed case with hospitalist Dr. Whitfield who accept patient for admission. Patient notified as well as for members all question concerns answered. Lab Data Labs: Laboratory Results - last 24 hr 02/24/25 02/24/25 09:35 09:39 WBC 10.1 RBC 3.92 L Hgb 11.4 L Hct 34.4 L MCV 87.8 MCH 29.1 MCHC 33.1 RDW Std Deviation 46.4 H RDW Coeff of Shon 14.4 Plt Count 406 MPV 10.2 Immature Gran % (Auto) 0.300 Neut % (Auto) 77.1 H Lymph % (Auto) 14.0 L Wilcox % (Auto) 7.6 Eos % (Auto) 0.4 Baso % (Auto) 0.6 Absolute Neuts (auto) 7.8 H Absolute Lymphs (auto) 1.42 Nucleated RBC % 0 PT 12.8 INR 1.0 APTT 28.7 Sodium 140 Potassium 3.4 Chloride 103 Carbon Dioxide 22.6 Anion Gap 14 BUN 9 Creatinine 0.63 L Estim Creat Clear Calc 51.76 Est GFR (MDRD) Non-Af 90 BUN/Creatinine Ratio 14.9 Glucose 116 H Calcium 9.5 Troponin T High Sens 20 H D POC Glucose 113 H Radiography Diagnostic Testing: Clinical Impression(s) from Imaging Studies Brain CT 02/24/25 10:15 IMPRESSION: 1. Small vessel ischemic/degenerative changes. 2. No acute intracranial hemorrhage, midline shift or mass effect. If symptoms persist, further evaluation with MRI is recommended. Red Alert: No acute intracranial hemorrhage. The critical information above was relayed directly by me by telephone to Jared James on 02/24/2025 at 10:37 am with readback verification. Reading Location: [facility] Head/Neck CTA 02/24/25 10:15 IMPRESSION: There is a high-grade stenosis in the proximal M1 horizontal component of the right middle cerebral, measuring 0.5 cm in length, axial image [id number]. Critical results were discussed with Dr. James by Dr. Reddy at the time ofdictation. Reading Location: [facility] Discharge Plan Triage Chief Complaint: Neuro S/Sx ED Provider: Jared James Dx/Rx/DC Orders Clinical Impression: Stroke, Left leg weakness, Left arm weakness, Facial droop, History of dementia Prescriptions: No Action fluoxetine 40 mg capsule 60 mg PO DAILY Patient Comments: TAKE 1 CAPSULE BY MOUTH ONCE DAILY multivitamin [Multi-Vitamin] Tablet 1 tab PO DAILY buspirone 10 mg tablet 10 mg PO TID memantine 10 mg tablet 10 mg PO BID melatonin 10 mg capsule 10 mg PO QHS PRN (Reason: sleep) sennosides [Evac-U-Gen (sennosides)] 8.6 mg tablet 17.2 mg PO BID polyethylene glycol 3350 [ClearLax] 17 gram/dose powder 17 g PO DAILY trazodone 50 mg tablet 50 mg PO QHS gabapentin 100 mg capsule 100 mg PO TID PRN PRN (Reason: for pain) losartan 25 mg tablet 25 mg PO DAILY Primary Care Provider: Citlaly العراقي Referrals: Citlaly العراقي MD [Primary Care Provider] - Print Language: Jamaican Disposition Disposition: Acute Care Hospital [facility] What to do if you have Problems For any increased pain, shortness of breath, bleeding, nausea or vomiting, chestpain, or any unexpected problems, contact your Primary Care Provider. Call [facility] ([phone]) or report to the closest Emergency Room. Call 911 if necessary. 02/24/25 1218 <Electronically signed by Jared James DO> Cosigner Signature (if applicable): CC: Dr. Citlaly العراقي MD ~ Signed [facility] Work Phone: 1(144) 575-828007-17-2025 Evaluation note* Diagnosis Onset Date Resolution Status Admit Date Acute right MCA stroke acute Ju 2024 12:15pm Facial droop acute February 24, 2 025 12:15pm History of dementia acute February 24, 2025 12:15pm Left arm weakness acute February 242024 12:15pm Left leg weakness acute February 242024 12:15pm Stroke acute February 24 12:15pm [facility] Work Phone: [phone]) 366-923007-17-2025 Evaluation note* Diagnosis Onset Date Resolution Status Admit Date Acute right MCA stroke acute 2024 12:15pm Facial droop acute February 24, 2 025 12:15pm History of dementia acute February 24, 2025 12:15pm Left arm weakness acute February 242024 12:15pm Left leg weakness acute February 242024 12:15pm Stroke acute February 24 12:15pm Elevated alkaline phosphatas e level acute March 21 11:01am Regurgitation of food acute Mar 11:01am 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 Citlaly العراقي MD Status:RE G ER Location: ED HPI History of Present Illness Chief Complaint: Neuro S/Sx Narrative Narrative: Patient is a 79-year-old female with past medical history of dementia, hyperlipidemia, anxiety, IBS, depression who presented to the emergency department with concern for left-sided facial droop, left arm weakness. According to the who provides history of present illness secondary to her dementia he states that few days ago he noted that she had some left-sided facial droop. He states that yesterday she had blood work obtained around 9:00 in the morning and noted that she had some weakness in her left arm as well thathad progressively worsened into today therefore they had her sent here for further evaluation and management. They deny blood thinning medications denies any falls. was also inquiring about likely placement into a facility lisa states that he cannot care for her anymore at home. 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 Depression Inflammatory bowel disease Anxiety Home Medications ?Medication ?Instructions ?Recorded ?Last Taken ?Type fluoxetine 40 mg capsule 60 mg PO DAILY 10/17/21 Unkn own History multivitamin 1 tab PO DAILY 10/17/21 Unkn own History buspirone 10 mg tablet 10 mg PO TID 02/28/24 Unknow n History melatonin 10 mg capsule 10 mg PO QHS PRN sleep 02/27 Unknown History memantine 10 mg tablet 10 mg PO BID 02/28/24 Unknow n History polyethylene glycol 3350 17 17 g PO DAILY 03/08/24 Unk nown History gram/dose oral powder (ClearLax) sennosides 8.6 mg tablet 17.2 mg PO BID 03/08/24 Unkn own History (Evac-U-Gen (sennosides)) gabapentin 100 mg capsule 100 mg PO TID PRN PRN for pa in 12/18/24 Unknown History losartan 25 mg tablet 25 mg PO DAILY 12/18/24 Unkn own History trazodone 50 mg tablet 50 mg PO QHS 12/18/24 Unknow n History Allergy/AdvReac Type Severity Reaction Status Date / Time No Known Allergies Allergy Verified 02/24/25 09:29 Social History household members: spouse housing: house Smoking Status: Never smoker ROS ROS ED ROS Narrative Constitutional: Denies headache Eyes: Denies double vision blurry vision Cardiovascular: Denies chest pain Respiratory: Denies shortness of breath Abdomen: Denies nausea vomit diarrhea Neurological: Complains of left-sided facial droop left arm weakness as noted above Musculoskeletal: Denies back pain Skin: Denies any rashes or lesions EXAM Physical Exam Narrative Exam Narrative: General: Patient lying in bed rest comfortably did not appear to be in acute distress Head: Atraumatic, normocephalic Eyes: PERRL bilaterally, EOMI bilaterally, no conjunctival injection noted Neck: Soft, supple, trachea midline Cardiovascular: Regular rate and rhythm Respiratory: Clear to auscultation bilaterally Extremities: +2/5 strength noted in the left upper extremity and the left lower extremity, +4/5 strength noted in the right upper and lower extremity Neurological: Patient is following commands knew that she was at a hospital she knew that it was 2024 she was confused and thought it was spring. She was able to tell me there was a clock on the wall. Patient does have significant left arm weakness as well as left-sided facial droop. Patient has left lower extremity weakness more on the left when compared to the right although both areweak Skin: Warm, dry, intact no rashes or lesions noted Const Vital Signs: 02/24/25 09:29 02/24/25 09:44 02/24/25 09:44 Temperature 98.0 F Temperature Source Oral Pulse Rate 85 78 Respiratory Rate 22 H 21 H Blood Pressure 152/85 H 154/77 H Blood Pressure Mean 107 102 Pulse Ox 95 95 Oxygen Delivery Method Room Air Room Air Room Air 02/24/25 10:08 02/24/25 11:27 Temperature Temperature Source Pulse Rate 77 73 Respiratory Rate 16 18 Blood Pressure 165/80 H 152/92 H Blood Pressure Mean 108 112 Pulse Ox 97 98 Oxygen Delivery Method Room Air MDM MDM MDM Narrative Medical decision making narrative: Patient is a 79-year-old female who presented to the emergency department for concern for left-sided facial droop and left arm weakness. On the differential diagnosis includes but limited to intracranial hemorrhage, ischemic stroke, hypoglycemia, electrolyte abnormality. Once workup is obtained and reviewed shewill be reevaluated. Patient is not a tenecteplase candidate as her symptoms started a few days ago. Patient is also not an LVO candidate as once again her symptoms started more than 24 hours ago. Patient's CBC was reviewed and showed no evidence leukocytosis white blood count10.1, hemoglobin 1.4, plate count of 406. Patient INR normal at 1, PT of 12.8. Patient sodium was 140, potassium was noted to be normal at 3.4, creatinine 0.63. Patient's troponin was 20 EKG reviewed showed sinus rhythm with a rate of[address] changes noted in V2 and V3. When compared to EKG from January 24, 2025 this was largely unchanged. Patient's dguvt-wx-mebl glucose was 113. Patient CT head and brain without contrast showed small vessel ischemic/degenerative changes no acute intracranial hemorrhage midline shift or mass effect recommending MRI if symptoms persist. Patient CTA head and neck reviewed and showed high-grade stenosis in the proximal M1 horizontal component of the right middle cerebral measuring 0.5 cm in length. [facility] given her symptoms have progressively worsened despite them starting in a few days ago to see if they would suggest intervention or not. I originally spoke with Dr. Sinclair after she was done evaluating my other patient and she is requesting I go through the transfer line so she could see the image to further evaluate. During this time Dr. Lemos called back and I had further discussion with him and he states that he would recommend transfer down to [facility] for further evaluation given that she has progressively worsened despite her symptoms starting a few days ago and unclear last known well. He was recommending aspirin loaded with Plavix as well. Dr. Sinclair also called back again and I discussed with her the case again as well and she also would recommend transfer down in case she needs emergent stenting if she still continues to progressively worsen I notified her that the family at bedside is still refusing transfer. She told me that they will not plan on seeing the patient tomorrow then unless the hospitalist put a formal consult in we will notify the hospitalist of this as well. I went back in to update the family/significant other and the daughter had arrived who is a nurse practitioner and the neurology unit and I notified them that the recommendation was transfer to [facility] and she is refusing this she states that she does not want intervention at this point in time she states thatshe does not want Plavix load either. She states that she wants the patient placed into a nursing facility. At this point time will discuss case with hospitalist for admission. Discussed case with hospitalist Dr. Whitfield who accept patient for admission. Patient notified as well as for members all question concerns answered. Lab Data Labs: Laboratory Results - last 24 hr 02/24/25 02/24/25 09:35 09:39 WBC 10.1 RBC 3.92 L Hgb 11.4 L Hct 34.4 L MCV 87.8 MCH 29.1 MCHC 33.1 RDW Std Deviation 46.4 H RDW Coeff of Shon 14.4 Plt Count 406 MPV 10.2 Immature Gran % (Auto) 0.300 Neut % (Auto) 77.1 H Lymph % (Auto) 14.0 L Wilcox % (Auto) 7.6 Eos % (Auto) 0.4 Baso % (Auto) 0.6 Absolute Neuts (auto) 7.8 H Absolute Lymphs (auto) 1.42 Nucleated RBC % 0 PT 12.8 INR 1.0 APTT 28.7 Sodium 140 Potassium 3.4 Chloride 103 Carbon Dioxide 22.6 Anion Gap 14 BUN 9 Creatinine 0.63 L Estim Creat Clear Calc 51.76 Est GFR (MDRD) Non-Af 90 BUN/Creatinine Ratio 14.9 Glucose 116 H Calcium 9.5 Troponin T High Sens 20 H D POC Glucose 113 H Radiography Diagnostic Testing: Clinical Impression(s) from Imaging Studies Brain CT 02/24/25 10:15 IMPRESSION: 1. Small vessel ischemic/degenerative changes. 2. No acute intracranial hemorrhage, midline shift or mass effect. If symptoms persist, further evaluation with MRI is recommended. Red Alert: No acute intracranial hemorrhage. The critical information above was relayed directly by me by telephone to Jared James on 02/24/2025 at 10:37 am with readback verification. Reading Location: [facility] Head/Neck CTA 02/24/25 10:15 IMPRESSION: There is a high-grade stenosis in the proximal M1 horizontal component of the right middle cerebral, measuring 0.5 cm in length, axial image [id number]. Critical results were discussed with Dr. James by Dr. Reddy at the time ofdictation. Reading Location: [facility] Discharge Plan Triage Chief Complaint: Neuro S/Sx ED Provider: Jared James Dx/Rx/DC Orders Clinical Impression: Stroke, Left leg weakness, Left arm weakness, Facial droop, History of dementia Prescriptions: No Action fluoxetine 40 mg capsule 60 mg PO DAILY Patient Comments: TAKE 1 CAPSULE BY MOUTH ONCE DAILY multivitamin [Multi-Vitamin] Tablet 1 tab PO DAILY buspirone 10 mg tablet 10 mg PO TID memantine 10 mg tablet 10 mg PO BID melatonin 10 mg capsule 10 mg PO QHS PRN (Reason: sleep) sennosides [Evac-U-Gen (sennosides)] 8.6 mg tablet 17.2 mg PO BID polyethylene glycol 3350 [ClearLax] 17 gram/dose powder 17 g PO DAILY trazodone 50 mg tablet 50 mg PO QHS gabapentin 100 mg capsule 100 mg PO TID PRN PRN (Reason: for pain) losartan 25 mg tablet 25 mg PO DAILY Primary Care Provider: Citlaly العراقي Referrals: Citlaly العراقي MD [Primary Care Provider] - Print Language: Jamaican Disposition Disposition: Acute Care Hospital [facility] What to do if you have Problems For any increased pain, shortness of breath, bleeding, nausea or vomiting, chestpain, or any unexpected problems, contact your Primary Care Provider. Call [facility] ([phone]) or report to the closest Emergency Room. Call 911 if necessary. 02/24/25 1218 <Electronically signed by Jared James DO> Cosigner Signature (if applicable): CC: Dr. Citlaly العراقي MD ~ Signed [facility] Work Phone: [phone] History and physical note [facility] Medical Records Department [address] [place] [address] H&P Exam - Hospitalist 02/24/25 1227 MR#: [id number] Acct: [id number] Name: WILLEM EVANS Rep #:[id number] : 1945 79 From: Tabitha Whitfield MD PCP: Dr. Citlaly العراقي MD Status:AD M IN Location: [facility] [id number] HPI - General General Date of Admission: 02/24/25 HPI Narrative WILLEM EVANS, is a 79 F who presents left-sided weakness and facial droop. Patient has history of CVAin December 2024, did receive TNK and was transferred to [facility]. 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 Patient's daughter had noticed patient with a slight left facial droop 2 days prior to patient's admission. This was followed by subjective weakness involving the left lower extremity the following day. She did check up on her mom and found patient to have flaccid paralysis involving the left upper extremity necessitating patient being brought to the emergency department. Imaging studies obtained demonstrated a high-grade stenosis in the proximal M1 horizontal component of the right middlecerebral, measuring 0.5 cm in length. Call was placed for patient to have been transferred to [facility]. Patient's daughter however requested further transfer not to take place. Patient family wanted patient placed placed in the facility instead. 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 Depression Inflammatory bowel disease Anxiety Home Medications ?Medication ?Instructions ?Recorded ?Last Taken ?Type fluoxetine 40 mg capsule 60 mg PO DAILY 10/17/21 Unkn own History multivitamin 1 tab PO DAILY 10/17/21 Unkn own History buspirone 10 mg tablet 10 mg PO TID 02/28/24 Unknow n History melatonin 10 mg capsule 10 mg PO QHS PRN sleep 02/27 Unknown History memantine 10 mg tablet 10 mg PO BID 02/28/24 Unknow n History polyethylene glycol 3350 17 17 g PO DAILY 03/08/24 Unk nown History gram/dose oral powder (ClearLax) sennosides 8.6 mg tablet 17.2 mg PO BID 03/08/24 Unkn own History (Evac-U-Gen (sennosides)) gabapentin 100 mg capsule 100 mg PO TID PRN PRN for pa in 12/18/24 Unknown History losartan 25 mg tablet 25 mg PO DAILY 12/18/24 Unkn own History trazodone 50 mg tablet 50 mg PO QHS 12/18/24 Unknow n History Allergy/AdvReac Type Severity Reaction Status Date / Time No Known Allergies Allergy Verified 02/24/25 09:29 Social History household members: spouse housing: house Smoking Status: Never smoker ROS ROS Narrative Difficult to elicit with patient being dysarthric Vital Signs Vital Signs Vital Signs: 02/24/25 09:29 02/24/25 09:44 02/24/25 09:44 Temperature 98.0 F Temperature Source Oral Pulse Rate 85 78 Respiratory Rate 22 H 21 H Blood Pressure 152/85 H 154/77 H Blood Pressure Mean 107 102 Pulse Ox 95 95 Oxygen Delivery Method Room Air Room Air Room Air 02/24/25 10:08 02/24/25 11:27 Temperature Temperature Source Pulse Rate 77 73 Respiratory Rate 16 18 Blood Pressure 165/80 H 152/92 H Blood Pressure Mean 108 112 Pulse Ox 97 98 Oxygen Delivery Method Room Air Weight Weight: 57.5 kg Body Mass Index (BMI) 20.5 Physical Exam Narrative GENERAL: Dysarthric HEENT: Atraumatic; normocephalic EYES; Anicteric, Normal Conjunctiva NECK; supple, normal thyroid, RESPIRATORY: Diminished to auscultation CARDIOVASCULAR: Regular S1 S2, GI: soft, normoactive bowel sounds, : No Renal angle tenderness; EXTREMITIES: No edema, no clubbing, MUSCULOSKELETAL: no muscle wasting NEURO: Awake; left facial droop with flaccid paralysis involving the left upperextremity SKIN: No Rash PSYCH; Flat affect Results Lab / Micro Data 02/24/25 09:35 02/24/25 09:35 Labs: Laboratory Results - last 24 hr 02/24/25 09:35: WBC 10.1, RBC 3.92 L, Hgb 11.4 L, Hct 34.4 L, MCV 87.8, MCH 29.1, MCHC 33.1, RDW Std Deviation 46.4 H, RDW Coeff of Shon 14.4, Plt Count 406,MPV 10.2, Immature Gran % (Auto) 0.300, Neut % (Auto) 77.1 H, Lymph % (Auto) 14.0 L, Wilcox % (Auto) 7.6, Eos % (Auto) 0.4, Baso % (Auto) 0.6, Absolute Neuts (auto) 7.8 H, Absolute Lymphs (auto) 1.42, Nucleated RBC % 0, PT 12.8, INR 1.0, APTT 28.7, Sodium 140, Potassium 3.4, Chloride 103, Carbon Dioxide 22.6, Anion Gap 14, BUN 9, Creatinine 0.63 L, Estim Creat Clear Calc 51.76, Est GFR (MDRD) Non-Af 90, BUN/Creatinine Ratio 14.9, Glucose 116H, Calcium 9.5, Troponin T High Sens 20 H D 02/24/25 09:39: POC Glucose 113 H Imaging Radiology Impression Brain CT 02/24/25 10:15 IMPRESSION: 1. Small vessel ischemic/degenerative changes. 2. No acute intracranial hemorrhage, midline shift or mass effect. If symptoms persist, further evaluation with MRI is recommended. Red Alert: No acute intracranial hemorrhage. The critical information above was relayed directly by me by telephone to Jared James on 02/24/2025 at 10:37 am with readback verification. Reading Location: [facility] Head/Neck CTA 02/24/25 10:15 IMPRESSION: There is a high-grade stenosis in the proximal M1 horizontal component of the right middle cerebral, measuring 0.5 cm in length, axial image [id number]. Critical results were discussed with Dr. James by Dr. Reddy at the time ofdictation. Reading Location: [facility] Assessment & Plan Assessment/Plan (1) Acute right MCA stroke: PLAN: Plan Patient is a 79-year-old female presenting with left-sided weakness 1. Acute CVA ? Patient presented with left facial droop with left-sided weakness. Imaging studies obtained in the ED did show a high-grade stenosis in the proximal M1 horizontal component of the right middle cerebral, measuring 0.5 cm in length. Patient was accepted for transfer to [facility] regarding her large vessel occlusion for intervention patient family however declined for patient johanny transferred. Patient admitted to a monitored bed requested for PT/OT/ST evaluation. Patient started on antiplatelet therapy with aspirin as well as atorvastatin. 2D echo and an MRI ordered as part of patient's evaluation. Consult placed to [facility]. Patient was not a candidate for TNK given the fact that her last known well is unknown #2. Previous CVA ? Patient did receive TNK and transferred to a [facility] where no intervention was done regarding her high-grade stenosis in the proximal M1?right MCA 3. Essential hypertension ? Will proceed permissive hypertension protocol 4. Depression with anxiety ? Patient is on fluoxetine as well as buspirone 5. Dementia ? Patient is on memantine 10 mg twice daily will resume once home meds have beenreconciled 6. Anemia ? Secondary to chronic disorder monitoring H&H and transfuse if patient becomes symptomatic or hemoglobin falls below 7 7. DVT prophylaxis ? Subcu Lovenox Time spent in the patient's overall evaluation,decision-making process, review of diagnostic data, adjustment of management, discussion with other providers, nursing nursing and ancillary staff involved in patient's care documentation, 75 Minutes Advance planning; did discuss with the patient and family (patient's daughter) regarding advanced directives as well as CODE STATUS. Did explain the various scenarios involved ( FULL CODE, DNR CCA, DNR CCA with no intubation, and DNR CC and what each meant) patient elected to be DNR CCA no intubation. Order was placed. Time spent on discussion 16 minutes. Charges/Coding Multi Select Codes Visit Charges Visit Charges: 83628 Init Hosp L3 Hospitalists' Procedures Procedures: 05601 Advncd Care Plan 30 Min 02/24/25 1253 Cosigner Signature (if applicable): CC: Dr. Tabitha Whitfield MD; Dr. Citlaly العراقي MD~ Signed [facility]07-17-2025 Discharge summary [facility] Medical Records Department [address] [place] [address] Emergency Department Summary 02/24/25 MR#: [id number] Acct: [id number] Name: WILLEM EVANS Rep #:[id number] : 1945 79 From: Jared James DO PCP: Dr. Citlaly العراقي MD Status:RE G ER Location: ED HPI History of Present Illness Chief Complaint: Neuro S/Sx Narrative Narrative: Patient is a 79-year-old female with past medical history of dementia, hyperlipidemia, anxiety, IBS, depression who presented to the emergency department with concern for left-sided facial droop, left arm weakness. According to the who provides history of present illness secondary to her dementia he states that few days ago he noted that she had some left-sided facial droop. He states that yesterday she had blood work obtained around 9:00 in the morning and noted that she had some weakness in her left arm as well thathad progressively worsened into today therefore they had her sent here for further evaluation and management. They deny blood thinning medications denies any falls. was also inquiring about likely placement into a facility lisa states that he cannot care for her anymore at home. 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 Depression Inflammatory bowel disease Anxiety Home Medications ?Medication ?Instructions ?Recorded ?Last Taken ?Type fluoxetine 40 mg capsule 60 mg PO DAILY 10/17/21 Unkn own History multivitamin 1 tab PO DAILY 10/17/21 Unkn own History buspirone 10 mg tablet 10 mg PO TID 02/28/24 Unknow n History melatonin 10 mg capsule 10 mg PO QHS PRN sleep 02/27 Unknown History memantine 10 mg tablet 10 mg PO BID 02/28/24 Unknow n History polyethylene glycol 3350 17 17 g PO DAILY 03/08/24 Unk nown History gram/dose oral powder (ClearLax) sennosides 8.6 mg tablet 17.2 mg PO BID 03/08/24 Unkn own History (Evac-U-Gen (sennosides)) gabapentin 100 mg capsule 100 mg PO TID PRN PRN for pa in 12/18/24 Unknown History losartan 25 mg tablet 25 mg PO DAILY 12/18/24 Unkn own History trazodone 50 mg tablet 50 mg PO QHS 12/18/24 Unknow n History Allergy/AdvReac Type Severity Reaction Status Date / Time No Known Allergies Allergy Verified 02/24/25 09:29 Social History household members: spouse housing: house Smoking Status: Never smoker ROS ROS ED ROS Narrative Constitutional: Denies headache Eyes: Denies double vision blurry vision Cardiovascular: Denies chest pain Respiratory: Denies shortness of breath Abdomen: Denies nausea vomit diarrhea Neurological: Complains of left-sided facial droop left arm weakness as noted above Musculoskeletal: Denies back pain Skin: Denies any rashes or lesions EXAM Physical Exam Narrative Exam Narrative: General: Patient lying in bed rest comfortably did not appear to be in acute distress Head: Atraumatic, normocephalic Eyes: PERRL bilaterally, EOMI bilaterally, no conjunctival injection noted Neck: Soft, supple, trachea midline Cardiovascular: Regular rate and rhythm Respiratory: Clear to auscultation bilaterally Extremities: +2/5 strength noted in the left upper extremity and the left lower extremity, +4/5 strength noted in the right upper and lower extremity Neurological: Patient is following commands knew that she was at a hospital she knew that it was 2024 she was confused and thought it was spring. She was able to tell me there was a clock on the wall. Patient does have significant left arm weakness as well as left-sided facial droop. Patient has left lower extremity weakness more on the left when compared to the right although both areweak Skin: Warm, dry, intact no rashes or lesions noted Const Vital Signs: 02/24/25 09:29 02/24/25 09:44 02/24/25 09:44 Temperature 98.0 F Temperature Source Oral Pulse Rate 85 78 Respiratory Rate 22 H 21 H Blood Pressure 152/85 H 154/77 H Blood Pressure Mean 107 102 Pulse Ox 95 95 Oxygen Delivery Method Room Air Room Air Room Air 02/24/25 10:08 02/24/25 11:27 Temperature Temperature Source Pulse Rate 77 73 Respiratory Rate 16 18 Blood Pressure 165/80 H 152/92 H Blood Pressure Mean 108 112 Pulse Ox 97 98 Oxygen Delivery Method Room Air MDM MDM MDM Narrative Medical decision making narrative: Patient is a 79-year-old female who presented to the emergency department for concern for left-sided facial droop and left arm weakness. On the differential diagnosis includes but limited to intracranial hemorrhage, ischemic stroke, hypoglycemia, electrolyte abnormality. Once workup is obtained kiran melendez be reevaluated. Patient is not a tenecteplase candidate as her symptoms started a few days ago. Patient is also notan LVO candidate as once again her symptoms started more than 24 hours ago. Patient's CBC was reviewed and showed no evidence leukocytosis white blood count10.1, hemoglobin 1.4, plate count of 406. Patient INR normal at 1, PT of 12.8. Patient sodium was 140, potassium was noted to be normal at 3.4, creatinine 0.63. Patient's troponin was 20 EKG reviewed showed sinus rhythmwith a rate of[address] changes noted in V2 and V3. When compared to EKG from 2024 this was largely unchanged. Patient's nevqm-[id number] glucose was 113. Patient CT head and brain without contrast showed small vessel ischemic/degenerative changes no acute intracranial hemorrhage midline shift or mass effect recommending MRI if symptoms persist. Patient CTA head and neck rev iewed and showed high-grade stenosis in the proximal M1 horizontal component of the right middle cerebral measuring 0.5 cm in length. I reached out to [facility] teleneurology to discuss this given her symptoms have progressively worsened despite them starting in a few days ago to see if they would suggest intervention or not. I originally spoke with Dr. Sinclair after she was done evaluating my other patient and she is requesting I go through the transfer line so she could see the image to further evaluate. During this time Dr. Lemos called back and I had further discussion with him and he states that he would recommend transfer down to [facility] for further evaluation given that she has progressively worseneddespite her symptoms starting a few days ago and unclear last known well. He was recommending aspirin loaded with Plavix as well. Dr. Sinclair also called back again and I discussed with her the case again as well and she also would recommend transfer down in case she needs emergent stenting if she still continues to progressively worsen I notified her that the family at bedside is still refusing transfer. She told me that they will not plan on seeing the patient tomorrow then unless the hospitalistput a formal consult in we will notify the hospitalist of this as well. I went back in to update the family/significant other and the daughter had arrived who is a nurse practitioner and the neurology unit and I notified them that the recommendation was transfer to [facility] and she is refusing this she states that she does not want intervention at this point in time she states thatshe does not want Plavix load either. She states that she wants the patient placed into a nursing facility. At this point time will discuss case with hospitalist for admission. Discussed case with hospitalist Dr. Whitfield who accept patient for admission. Patient notified as well as for members all question concerns answered. Lab Data Labs: Laboratory Results - last 24 hr 02/24/25 02/24/25 09:35 09:39 WBC 10.1 RBC 3.92 L Hgb 11.4 L Hct 34.4 L MCV 87.8 MCH 29.1 MCHC 33.1 RDW Std Deviation 46.4 H RDW Coeff of Shon 14.4 Plt Count 406 MPV 10.2 Immature Gran % (Auto) 0.300 Neut % (Auto) 77.1 H Lymph % (Auto) 14.0 L Wilcox % (Auto) 7.6 Eos % (Auto) 0.4 Baso % (Auto) 0.6 Absolute Neuts (auto) 7.8 H Absolute Lymphs (auto) 1.42 Nucleated RBC % 0 PT 12.8 INR 1.0 APTT 28.7 Sodium 140 Potassium 3.4 Chloride 103 Carbon Dioxide 22.6 Anion Gap 14 BUN 9 Creatinine 0.63 L Estim Creat Clear Calc 51.76 Est GFR (MDRD) Non-Af 90 BUN/Creatinine Ratio 14.9 Glucose 116 H Calcium 9.5 Troponin T High Sens 20 H D POC Glucose 113 H Radiography Diagnostic Testing: Clinical Impression(s) from Imaging Studies Brain CT 02/24/25 10:15 IMPRESSION: 1. Small vessel ischemic/degenerative changes. 2. No acute intracranial hemorrhage, midline shift or mass effect. If symptoms persist, further evaluation with MRI is recommended. Red Alert: No acute intracranial hemorrhage. The critical information above was relayed directly by me by telephone to Jared James on 02/24/2025 at 10:37 am with readback verification. Reading Location: [facility] Head/Neck CTA 02/24/25 10:15 IMPRESSION: There is a high-grade stenosis in the proximal M1 horizontal component of the right middle cerebral, measuring 0.5 cm in length, axial image 360-364/522. Critical results were discussed with Dr. James by Dr. Reddy at the time ofdictation. Reading [facility] Dis[facility] Plan Triage Chief Complaint: Neuro S/Sx ED Provider: Jared James Dx/Rx/DC Orders Clinical Impression: Stroke, Left leg weakness, Left arm weakness, Facial droop, History of dementia Prescriptions: No Action fluoxetine 40 mg capsule 60 mg PO DAILY Patient Comments: TAKE 1 CAPSULE BY MOUTH ONCE DAILY multivitamin [Multi-Vitamin] Tablet 1 tab PO DAILY buspirone 10 mg tablet 10 mg PO TID memantine 10 mg tablet 10 mg PO BID melatonin 10 mg capsule 10 mg PO QHS PRN (Reason: sleep) sennosides [Evac-U-Gen (sennosides)] 8.6 mg tablet 17.2 mg PO BID polyethylene glycol 3350 [ClearLax] 17 gram/dose powder 17 g PO DAILY trazodone 50 mg tablet 50 mg PO QHS gabapentin 100 mg capsule 100 mg PO TID PRN PRN (Reason: for pain) losartan 25 mg tablet 25 mg PO DAILY Primary Care Provider: Citlaly العراقي Referrals: Citlaly العراقي MD [Primary Care Provider] - Print Language: Jamaican Disposition Disposition: Acute Care Hospital [facility] What to do if you have Problems For any increased pain, shortness of breath, bleeding, nausea or vomiting, chestpain, or any unexpected problems, contact your Primary Care Provider. Call [facility] ([phone]) or report tothe closest Emergency Room. Call 911 if necessary. 02/24/25 1218 Cosigner Signature (if applicable): CC: Dr. Ciltaly العراقي MD ~ Signed [facility]07-17-2025 Radiology Diagnostic study note [facility] Imaging Services [address] [place], [place] [address] STROKE CTA Head AND Neck W/Con MR#: [id number] Acct: [id number] Name: WILLEM EVANS Rep #: [id number] : 1945 F 79 From: Mark Reddy MD PCP: Dr. Citlaly العراقي MD Status: RE G ER Study:STROKE CTA Head AND Neck W/Con Date of Exam: 02/24/25 Exam# [id number] Ordering Dr: Abiel James DO PROCEDURE: STROKE CTA HEAD AND NECK W/CON 02/24/2025 REASON FOR EXAM: NEURO DEFICIT, ACUTE, STROKE SUSPECTED TECHNIQUE: STROKE CTA HEAD AND NECK W/CON Multiplanar Sagittal and Coronal images were obtained. CONTRAST: 100 cc Isovue 370 One or more dose reduction techniques were used (e.g., Automated exposure control, adjustment of the mA and/or kV according to patient size, use of iterative reconstruction technique). RADIATION DOSE SUMMARY: DLP: 1199 mGycm COMPARISON: None FINDINGS: Aortic Arch: Patent Brachiocephalic and Subclavians: Patent RIGHT Carotid: Right CCA: Patent, plaque is noted Right ICA: Patent Maximum stenosis (NASCET): 0 % Right ECA: Patent LEFT Carotid: Left CCA: Patent, plaque is noted Left ICA: Patent Maximum stenosis (NASCET): 0 % Left ECA: Patent Vertebrals: Patent RIGHT Vertebral: Patent LEFT Vertebral: Patent Anatomy: Patent, plaque is noted in the carotid siphons Aneurysm or avm: None Anterior cerebral arteries: Patent Middle cerebral arteries: The left middle cerebral is widely patent. There is ahigh-grade stenosis in the proximal M1 horizontal component of the right middle cerebral, measuring 0.5 cm in length, axial image 360-364/522. Basilar artery: Patent Posterior cerebral arteries: Patent Other major branches of the posterior circulation: Patent Major venous structures: Patent Other findings: Neck: Unremarkable lungs: Clear bones: There is no acute bony abnormality. CT/STROKE CTA Head AND Neck W/Con IMPRESSION: There is a high-grade stenosis in the proximal M1 horizontal component of the right middle cerebral, measuring 0.5 cm in length, axial image 360-364/522. Critical results were discussed with Dr. James by Dr. Reddy at the time ofdictation. Reading Location: [facility] CC: Dr. Citlaly العراقي MD; Dr. Jared James DO ~ Nut Tapper: Signed [facility]07-17-2025 Radiology Diagnostic study note [facility] Imaging Services [address] [place] [address] STROKE Brain/Head without Cont MR#: [id number] Acct: [id number] Name: WILLEM EVANS Rep #: [id number] : 1945 F 79 From: Leidy Alejandra MD PCP: Dr. Citlaly العراقي MD Status: RE G ER Study:STROKE Brain/Head without Cont Date of Exam: 02/24/25 Exam# [id number] Ordering Dr: Abiel James DO EXAM: CT Head Without Intravenous Contrast CLINICAL INDICATION: NEURO DEFICIT, ACUTE, STROKE SUSPECTED TECHNIQUE: Axial computed tomography images of the head/brain without intravenous contrast. This CTexam was performed using one or more of the following dose reduction techniques: automated exposure control, adjustment of the mA and/or kV according to patient size, and/or use of iterative reconstruction technique. 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 Areas of decreased attenuation in the deep cerebral white matter are consistent with small vessel ischemic/degenerative changes. No acute intracranial hemorrhage, midline shift or mass effect. If symptoms persist, further evaluation with MRI is recommended. BONES/JOINTS: Unremarkable. No acute fracture. SOFT TISSUES: Unremarkable. SINUSES: Unremarkable as visualized. No acute sinusitis. MASTOID AIR CELLS: Unremarkable as visualized. No mastoid effusion. CT/STROKE Brain/Head without Cont IMPRESSION: 1. Small vessel ischemic/degenerative changes. 2. No acute intracranial hemorrhage, midline shift or mass effect. If symptoms persist, further evaluation with MRI is recommended. Red Alert: No acute intracranial hemorrhage. The critical information above was relayed directly by me by telephone to Jared James on 02/24/2025 at 10:37 am with readback verification. Reading Location: [facility] CC: Dr. Citlaly العراقي MD; Dr. Jared James DO ~ Nut Tapper: Signed [facility]06-26-2025 Telephone encounter Note* Telephone Encounter - Gustavo Marin MA - 02/03/2025 8:57 AM EDT PCP/Team is not in office today. PCP returns to office tomorrow. Can route to OC to advise. Last Rx: 12/10/24 #30 w/1 refill. Gustavo Marin MA [facility]06-26-2025 Miscellaneous Notes* Telephone Encounter - Gustavo Marin MA - 02/03/2025 8:57 AM EDT PCP/Team is not in office today. PCP returns to office tomorrow. Can route to OC to advise. Last Rx: 12/10/24 #30 w/1 refill. Gustavo Marin MA * Telephone Encounter - Vijaya Diaz - 02/03/2025 8:41 AM EDT Patient is out of medication - please expedite today. TY Patient has been identified by name and date of : Yes Spouse phones for refill(s): traMADol 50 mg tab(s) (ULTRAM) Date of last office visit in primary care: 01/04/2025 Date of next office visit in primary care: 03/01/2025 Please advise. Thank you. Vijaya Diaz. documented [facility] encounter[facility] Telephone encounter Note * Telephone Encounter - Vijaya Diaz - 02/03/2025 8:41 AM EDT Patient is out of medication - please expedite today. TY Patient has been identified by name and date of : Yes Spouse phones for refill(s): traMADol 50 mg tab(s) (ULTRAM) Date of last office visit in primary care: 01/04/2025 Date of next office visit in primary care: 03/01/2025 Please advise. Thank you. Vijaya Diaz. [facility]06-16-2025 Radiology Diagnostic study note [facility] Imaging Services [address] [place], [place] [address] Chest 1 View MR#: [id number] Acct: [id number] Name: WILLEM EVANS Rep #: [id number] : 1945 F 79 From: Radha Leon MD PCP: Dr. Citlaly العراقي MD Status: RE G ER Study:Chest 1 View Date of Exam: 5 Exam# [id number] Ordering Dr: Mir Galindo DO PROCEDURE: CHEST 1 VIEW 01/24/2025 REASON FOR EXAM: NEURO DEFICIT, ACUTE, STROKE SUSPECTED TECHNIQUE: Frontal view of the chest. COMPARISON: None FINDINGS: No focal consolidations. Mild pulmonary vascular congestion. No pleural effusion or pneumothorax. Heart is borderline enlarged in size. Calcified aortic arch. Small hiatal hernia. RAD/Chest 1 View IMPRESSION: No focal consolidations. Mild pulmonary vascular congestion. No pleural effusion or pneumothorax. Small hiatal hernia. Reading Location: [facility] CC: Dr. Mir Galindo DO; Dr. Citlaly العراقي MD ~ Nut Tapper: Signed [facility]06-16-2025 Radiology Diagnostic study note [facility] Imaging Services [address] [place], [place] [address] STROKE CTA Head AND Neck W/Con MR#: [id number] Acct: [id number] Name: WILLEM EVANS Rep #: [id number] : 1945 F 79 From: Hollis Brower MD PCP: Dr. Citlaly العراقي MD Status: RE G ER Study:STROKE CTA Head AND Neck W/Con Date of Exam: 01/24/25 Exam# [id number] Ordering Dr: Mir Galindo DO PROCEDURE: STROKE CTA HEAD AND NECK W/CON 01/24/2025 REASON FOR EXAM: NEURO DEFICIT, ACUTE, STROKE SUSPECTED TECHNIQUE: STROKE CTA HEAD AND NECK W/CON Multiplanar Sagittal and Coronal images were obtained. CONTRAST: Isovue 370 VOLUME: 75 mL One or more dose reduction techniques were used (e.g., Automated exposure control, adjustment of the mA and/or kV according to patient size, use of iterative reconstruction technique). RADIATION DOSE SUMMARY: CTDlvol: 16.61+ 15.59 mGy DLP: 514.38 mGycm COMPARISON: 12/18/2024 CTA. FINDINGS: Atherosclerosis of the aortic arch without significant stenosis. The common carotid arteries are patent without evidence of stenosis or injury. Atherosclerosis of the bilateral proximal internal carotid arteries without hemodynamically significant stenosis. The left cervical vertebral artery is slightly dominant when comparedto the right. The bilateral cervical vertebral arteries are patent without evidence of stenosis or injury. Atherosclerosis of the carotid siphons without hemodynamically significant stenosis. The anterior cerebral, anterior communicating, middle cerebral, and posterior cerebral arteries are patent without evidence of stenosis or injury. The lhtocy-km-Phegtd is intact. No significant aneurysm. The vertebrobasilar system is patent. Improvedcirculation of the M1 segment of the right MCA. The lung apices are clear. CT/STROKE CTA Head AND Neck W/Con IMPRESSION: No acute arterial abnormality of the head or neck. Reading Location: [id number] CC: Dr. Mir Galindo DO; Dr. Citlaly العراقي MD ~ Nut Tapper: Signed [facility]06-16-2025 Radiology Diagnostic study note [facility] Imaging Services [address] [place] [address] STROKE Brain/Head without Cont MR#: [id number] Acct: [id number] Name: WILLEM EVANS Rep #: [id number] : 1945 F 79 From: Zenon Harman MD PCP: Dr. Citlaly العراقي MD Status: G ER Study:STROKE Brain/Head without Cont Date of Exam: 01/24/25 Exam# [id number] Ordering Dr: Mir Galindo DO PROCEDURE: STROKE BRAIN/HEAD WITHOUT CONT 01/24/2025 REASON FOR EXAM: NEURO DEFICIT, ACUTE, STROKE SUSPECTED TECHNIQUE: STROKE BRAIN/HEAD WITHOUT CONT Coronal and Sagittal reconstruction series were provided. One or more dose reduction techniques were used (e.g., Automated exposure control, adjustment of the mA and/or kV according to patient size, use of iterative reconstruction technique. RADIATION DOSE SUMMARY: CTDlvol: 44.99 mGy DLP: 745.49 mGycm COMPARISON: CT head without contrast, 12/18/2024. FINDINGS: There is moderate diffuse cerebral atrophy with concomitant ventriculomegaly. There are chronic cortical infarctions in both basal ganglia and in the periventricular white matter of both frontal lobes. There is no evidence of acute intracranial hemorrhage or infarction. There are no abnormal intracranial masses or mass effects. The ventricular system and basilar cisterns are unremarkable. There is calcific vascular disease of the intracranial portion of both internal carotid arteries in the left vertebral artery. The skull base and calvarium are normal. There is right carlos eduardo bullosa with mild nasal septal deviation to the left. The paranasal sinuses and mastoid air cells are unremarkable. There are bilateral scleral lu. The intraorbital contents are otherwise unremarkable. The visualized extracranial soft tissues are normal. CT/STROKE Brain/Head without Cont IMPRESSION: 1. No evidence of acute intracranial pathology. 2. Cerebral atrophy. 3. Other findings as noted. Reading Location: [id number] CC: Dr. Mir Galindo DO; Dr. Citlaly العراقي MD ~ Nut Tapper: Signed [facility] Work Phone: [phone]) 729-617805-30-2025 Telephone encounter Note* Telephone Encounter - Ofelia Linda - 01/07/2025 10:57 AM EDT Transitional Care Management (TCM) [facility] Monitoring Program Provider Action / FYI: N/A SUMMARY: Outreach type: INITIAL OUTREACH Discharge Network Status: In-Network [facility] Patient discharged from [place] on 12/21/24. 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 Contact made with patient: No - 2nd unsuccessful attempt - end outreach and close encounter. Ofelia Linda January 07, 2025 11:01 AM [facility]05-30-2025 Miscellaneous Notes* Telephone Encounter - Ofelia Linda - 01/07/2025 10:57 AM EDT Transitional Care Management (TCM) [facility] Monitoring Program Provider Action / FYI: N/A SUMMARY: Outreach type: INITIAL OUTREACH Discharge Network Status: In-Network Discharge Source of Patient: [facility] TCM Discharge Report Patient discharged from [place] on 12/21/24. 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 Contact made with patient: No - 2nd unsuccessful attempt - end outreach and close encounter. Ofelia Linda January 07, 2025 11:01 AM documented in this encounterJ[facility] History of Present illness Narrative* Citlaly العراقي MD - 01/04/2025 2:20 PM EDT Transitional Care Management TCM Eligibility Documentation The following information was gathered during patient outreach 12/23/2024 Date of Outreach: Outreach Attempt 1: Contact Made Date of Discharge 12/21/2024 Provider Documentation Willem Evans is a 79 year old female here today for a follow up from recent hospitalization. I havereviewed the patient's hospital course including discharge summary, discharge medications , and follow up needs with the patient and any family members present at today's visit. HPI Here with daughter, Lindsey who works in Neuro ICU. Here with her daughter and , pt has been urinating and having normal BM fine. She is following with Dawn Spears for tremors and dementia. Was started on Mysoline 50 mg half pill at bedtime due to her tremors. states that the dementia is not improving, has sundowners. Is taking Namenda 10 mg BID. She is able to dress herself, just needs prompting when she is in the shower.Daughter comes over on her days off to help. helps her a lot. They were scheduled to followup with a Neurosurgeon but cancelled as it was too far for her to travel, don't feel they are goingto proceed with that. Suggested to take both Plavix and ASA but due to risk of bleeding with her falling they didn't want to add the Plavix. They opted to just take the ASA for 3 months. She is walking well, did use wheelchair to get back to the office today. Is walking about 100 ft. Left side was affected but she has improvement and full use. No chest pains,dizziness, or SOB. BP checked occ at home when they can get the wrist cuff to work. She is taking Losartan 25 mg daily. Hospital d/c this when she was discharged home but pt has been taking it. BP when she was admitted was up to 170 systolic. She has sundowners so at night it was going up to 180 systolic. She does take Trazodone 50 mg at bedtime. Continues to have back pain. Was on gabapentin 100 mg 1 pill TID prn but had not been giving it to her. She has been complaining of back pain again. felt it works well for her. HOSPITAL COURSE: Per ICU transfer note 12/20 79 F with advanced dementia, HTN (more so in last 6 months) admitted with acute L weakness to [place] ED. iNIHSS 12 for which she received IV TNK, CTH neg, CTA w/ RM1 occlusion, transferred to [facility] for further management and potential EVT. Symptomatically improved after arrival without need for thrombectomy. Patient remains confused (baseline AOX1), but able to move L side this morning. MRI + RMCA stroke. Pt has improved during hospital stay and now planning home vs home health. Daughter is nurse in neurology. Recommendation is DAPT but family prefers monotherapy. Echo and dvt studyobtained benign. Plan for zio patch x 30 days. Follow up pcp 1 week and neuro as outpatient. Started on primidone for essential tremor- will continue Visit notes: This is a 79yo f, pmh of dementia and HTN, brought in by EMS to [place] ED for LFD and left sided weakness. Per report, patient's LKW was approximately 1730, prior to arriving to ED. iNIHSS 12 LFD, left sided weakness, left neglect, and slurred speech. Telestroke was consulted and recommend TNK. TNK was given at 2006. Symptoms improved to NIHSS 1 for mild left facial droop. She was briefly started on cardene infusion for SBP 190s. NIL at [facility] was consulted and recommends transferring patient toNSICU for closer neurological monitoring and possible emergent mechanical thrombectomy ASSESSMENT 79 year old female w/ PMHx significant for HTN and dementia who presented 12/18 with concern for left-sided weakness and slurred speech. TNK given at 2006. Post-TNK improved to NIH of 1, therefore thrombectomy was deferred. MRA completed yesterday noted persistent R M1 occlusion vs high-grade stenosis. No indication for neuroendovascular intervention at this time given low NIH score. Recommend continued close neuro monitoring for any exam worsening. Persistent R M1 occlusion versus high-grade stenosis noted on MRA, as well as stenoses of the bilateral psychiatric arnp, is suggestive of ICAD. Recommend DAPT for 3 months, however patient's daughter is hesitant due to somewhat frequent falls putting patient at higher risk of bleeding, may prefer single agentantiplatelet. Discussed reasoning for our recommendation with daughter who verbalized understanding. RECOMMENDATIONS - No neuroendovascular intervention indicated given low NIH - Recommend DAPT with Aspirin 81mg and Plavix 75mg daily x 3 months - Continue appropriate post-stroke care and secondary prevention per NSICU Above plan discussed with neurointerventional staff, Dr. Bonilla. SIGNATURE: Juany Guerrero PA-C Neuroendovascular Intervention 12/20/2024 PHYSICAL EXAMINATION BP 142/80 Pulse 66 Resp 16 Wt 60.6 kg (133 lb 9.6 oz) GENERAL: well appearing, alert, in no acute distress and uses wheelchair HEART: regular rate and rhythm. No murmur, rubs or gallops. LUNGS: clear to auscultation, no wheezing, rhonchi, or crackles ASSESSMENT/PLAN: 1. Hospital discharge follow-up - ICD9: V67.59, ICD10: Z09 (primary diagnosis) Improved Continue current medications. 2. Hypertension, unspecified type - ICD9: 401.9, ICD10: I10 - Controlled - Continue current medications - Recommend home blood pressure monitoring, to bring results to next visit - Encouraged sodium restriction, DASH or Mediterranean diet - Recommend regular aerobic exercise - Discussed need for and benefit of weight loss. BMI 22.93 kg/(m^2) - LOSARTAN 25 MG TABLET 3. Cerebral infarction, unspecified mechanism (HCC) - ICD9: 434.91, ICD10: I63.9 Continue current medications. 4. Hypokalemia - ICD9: 276.8, ICD10: E87.6 Monitor with labs 5. Essential tremor - ICD9: 333.1, ICD10: G25.0 Continue current medications. Continue with Neuro 6. Dementia without behavioral disturbance (HCC) - ICD9: 294.20, ICD10: F03.90 Continue current medications. Continue with Neuro 7. Chronic midline low back pain without sciatica - ICD9: 724.2, 338.29, ICD10: M54.50, G89.29 Stable Continue with Gabapentin 100 mg 1 pill TID Follow up in February as scheduled with fasting labs prior. I agree with the Chief Complaint, ROS, and Past Histories independently gathered by the clinical user support analyst and the remaining scribed note accurately describes my personal service to the patient. Citlaly العراقي MD The documentation for this note was completed by Ani Núñez MA acting as scribe for Citlaly العراقي MD. January 04, 2025 2:22 PM. Ani Núñez MA documented in this encounterJ.[facility]. [facility]05-[facility] NoteHNO ID: [id number] Author: CITLALY العراقي MD Service: ? Author Type: Physician Type: Progress Notes Filed: 01/04/2025 15:01 Note Text: Transitional Care Management TCM Eligibility Documentation The following information was gathered during patient outreach 12/23/2024 Date of Outreach: Outreach Attempt 1: Contact Made Date of Discharge 12/21/2024 Provider Documentation Willem Evans is a 79 year old female here today for a follow up from recent hospitalization. I have reviewed the patient's hospital course including discharge summary, discharge medications , and follow up needs with the patient and any family members present at today's visit. HPI Here with daughter, Lindsey who works in Neuro ICU. Here with her daughter and , pt has been urinating and having normal BM fine. She is following with Neuro Rosemarie Spears for tremors and dementia. Was started on Mysoline 50 mg half pill at bedtime due to her tremors. states that the dementia is not improving, has sundowners. Is taking Namenda 10 mg BID. She is able to dress herself, just needs prompting when she is in the shower. Daughter comes over on her days off to help. helps her a lot. They were scheduled to follow up with a Neurosurgeon but cancelled as it was too far for her to travel, don't feel they are going to proceed with that. Suggested to take both Plavix and ASA but due to risk of bleeding with her falling they didn't want to add the Plavix. They opted to just take the ASA for 3 months. She is walking well, did use wheelchair to get back to the office today. Is walking about 100 ft. Left side was affected but she has improvement and full use. No chest pains,dizziness, or SOB. BP checked occ at home when they can get the wrist cuff to work. She is taking Losartan 25 mg daily. Hospital d/c this when she was discharged home but pt has been taking it. BP when she was admitted was up to 170 systolic. She has sundowners so at night it was going up to 180 systolic. She does take Trazodone 50 mg at bedtime. Continues to have back pain. Was on gabapentin 100 mg 1 pill TID prn but had not been giving it to her. She has been complaining of back pain again. felt it works well for her. HOSPITAL COURSE: Per ICU transfer note 12/20 79 F with advanced dementia, HTN (more so in last 6 months) admitted with acute L weakness to [place] ED. iNIHSS 12 for which she received IV TNK, CTH neg, CTA w/ RM1 occlusion, transferred to [facility] for further management and potential EVT. Symptomatically improved after arrival without need for thrombectomy. Patient remains confused (baseline AOX1), but able to move L side this morning. MRI + RMCA stroke. Pt has improved during hospital stay and now planning home vs home health. Daughter is nurse in neurology. Recommendation is DAPT but family prefers monotherapy. Echo and dvt study obtained benign. Plan for zio patch x 30 days. Follow up pcp 1 week and neuro as outpatient. Started on primidone for essential tremor- will continue Visit notes: This is a 79yo f, pmh of dementia and HTN, brought in by EMS to [place] ED for LFD and left sided weakness. Per report, patient's LKW was approximately 1730, prior to arriving to ED. iNIHSS 12 LFD, left sided weakness, left neglect, and slurred speech. Telestroke was consulted and recommend TNK. TNK was given at 2006. Symptoms improved to NIHSS 1 for mild left facial droop. She was briefly started on cardene infusion for SBP 190s. NIL at [facility] was consulted and recommends transferring patient to NSICU for closer neurological monitoring and possible emergent mechanical thrombectomy ASSESSMENT 79 year old female w/ PMHx significant for HTN and dementia who presented 12/18 with concern for left-sided weakness and slurred speech. TNK given at 2006. Post-TNK improved to NIH of 1, therefore thrombectomy was deferred. MRA completed yesterday noted persistent R M1 occlusion vs high-grade stenosis. No indication for neuroendovascular intervention at this time given low NIH score. Recommend continued close neuro monitoring for any exam worsening. Persistent R M1 occlusion versus high-grade stenosis noted on MRA, as well as stenoses of the bilateral psychiatric arnp, is suggestive of ICAD. Recommend DAPT for 3 months, however patient's daughter is hesitant due to somewhat frequent falls putting patient at higher risk of bleeding, may prefer single agent antiplatelet. Discussed reasoning for our recommendation with daughter who verbalized understanding. RECOMMENDATIONS - No neuroendovascular intervention indicated given low NIH - Recommend DAPT with Aspirin 81mg and Plavix 75mg daily x 3 months - Continue appropriate post-stroke care and secondary prevention per NSICU Above plan discussed with neurointerventional staff, Dr. Bonilla. SIGNATURE: Juany Guerrero PA-C Neuroendovascular Intervention 12/20/2024 PHYSICAL EXAMINA (more content not included)...[facility] 12-27-2024 Telephone encounter Note* Telephone Encounter - Charo Price - 12/27/2024 11:30 AM EDT Transitional [facility] Management [facility]) [facility] Provider Action / FYI: N/a SUMMARY: Outreach type: INITIAL OUTREACH Discharge Network Status: In-Network [facility] Patient discharged from [place] on 12/21/2024. 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 Contact made with patient: No, for Follow-up - end outreach and close encounter. Charo Price December 27, 2024 11:32 AM [facility]05-19-2025 Miscellaneous Notes* Telephone Encounter - Charo Price - 12/27/2024 11:30 AM EDT Transitional Care Management (TCM) [facility] Monitoring Program Provider Action / FYI: N/a SUMMARY: Outreach type: INITIAL OUTREACH Discharge Network Status: In-Network Discharge Source of Patient: [facility] TCM Discharge Report Patient discharged from [place] on 12/21/2024. 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 Contact made with patient: No, for Follow-up - end outreach and close encounter. Charo Price December 27, 2024 11:32 AM documented in this encounterJ.W. [facility] NoteHNO ID: [id number] Author: GUSTAVO MARIN MA Service: ? Author Type: Strategies Analyst Type: Progress Notes Filed: 12/23/2024 16:38 Note Text: TRANSITION CARE MANAGEMENT (TCM) INITIAL CONTACT Strategies Analyst Outreach Provider Action/FYI: Pt originally presented to [facility] but was then transferred to [place]. Daughter reached out to the office with update regarding pt and changes in medication. Reviewed changes with Lindsey via [employer]. Asked if any meds were d/c, but none were. Appt has been scheduled with PCP on 01/04. Daughter advised she needs to make a f/u appt with her Neurologist here in [place]. Pt had f/u appt with Neurosurgeon on 12/28, but this appt was cancelled. Per Daughter she said this was a Vascular Provider, not a Neurosurgeon. Initial contact with patient post discharge, spoke to daughter Lindsey via [employer]. Patient identified by name and . TRANSITION CARE MANAGEMENT INITIAL OUTREACH DOCUMENTATION: No data to display SUMMARY: -Pt discharged from [facility] on 12/21/24. -Admitted for: Admission Discharged 12/18/2024 - 12/21/2024 (3 days) [facility] Saji Rivera DO Last attending Treatment team Acute ischemic cerebrovascular accident (CVA) involving left middle cerebral artery territory (HCC) Principal problem HOSPITAL COURSE: Per ICU transfer note 12/20 79 F with advanced dementia, HTN (more so in last 6 months) admitted with acute L weakness to [place] ED. iNIHSS 12 for which she received IV TNK, CTH neg, CTA w/ RM1 occlusion, transferred to [facility] for further management and potential EVT. Symptomatically improved after arrival without need for thrombectomy. Patient remains confused (baseline AOX1), but able to move L side this morning. MRI + RMCA stroke. Pt has improved during hospital stay and now planning home vs home health. Daughter is nurse in neurology. Recommendation is DAPT but family prefers monotherapy. Echo and dvt study obtained benign. Plan for zio patch x 30 days. Follow up pcp 1 week and neuro as outpatient. Started on primidone for essential tremor- will continue Visit notes: This is a 79yo f, pmh of dementia and HTN, brought in by EMS to [place] ED for LFD and left sided weakness. Per report, patient's LKW was approximately 1730, prior to arriving to ED. iNIHSS 12 LFD, left sided weakness, left neglect, and slurred speech. Telestroke was consulted and recommend TNK. TNK was given at 2006. Symptoms improved to NIHSS 1 for mild left facial droop. She was briefly started on cardene infusion for SBP 190s. NIL at [facility] was consulted and recommends transferring patient to NSICU for closer neurological monitoring and possible emergent mechanical thrombectomy ASSESSMENT 79 year old female w/ PMHx significant for HTN and dementia who presented 5/10 with concern for left-sided weakness and slurred speech. TNK given at 2006. Post-TNK improved to NIH of 1, therefore thrombectomy was deferred. MRA completed yesterday noted persistent R M1 occlusion vs high-grade stenosis. No indication for neuroendovascular intervention at this time given low NIH score. Recommend continued close neuro monitoring for any exam worsening. Persistent R M1 occlusion versus high-grade stenosis noted on MRA, as well as stenoses of the bilateral psychiatric arnp, is suggestive of ICAD. Recommend DAPT for 3 months, however patient's daughter is hesitant due to somewhat frequent falls putting patient at higher risk of bleeding, may prefer single agent antiplatelet. Discussed reasoning for our recommendation with daughter who verbalized understanding. RECOMMENDATIONS - No neuroendovascular intervention indicated given low NIH - Recommend DAPT with Aspirin 81mg and Plavix 75mg daily x 3 months - Continue appropriate post-stroke care and secondary prevention per NSICU Above plan discussed with neurointerventional staff, Dr. Bonilla. SIGNATURE: Juany Guerrero PA-C Neuroendovascular Intervention 12/20/2024 Do you have a hospital follow up appointment with your PCP? Appointment on 01/04/[address] العراقي at 2:20 pm. Yes. Remind patient of appointment date, time, and location. If not within 14 calendar days of discharge - please reschedule accordingly. MEDICATIONS: Many patients have questions or concerns about their medications once they are home. Were you prescribed any new medications? Yes Were you told to hold any medications? If yes, what are those medications? Lipitor 40 mg once daily, ASA 81 mg daily, and Primidone 50 mg once daily Were any of your medications discontinued? No Do you have any questions about getting or taking your medications? No, but worried about only receiving a 30 day supply. Your discharge instructions/After visit Summary (AVS) are important in guiding you through the recovery process. Is there anything I might help you understand? No Do you have all the necessary equipment and supplies at home? (more content not included)...[facility]05-15-2025 History of Present illness Narrative* Gustavo Marin MA - 12/23/2024 11:28 AM EDT Images from the original note were not included. TRANSITION CARE MANAGEMENT (TCM) INITIAL CONTACT Strategies Analyst Outreach Provider Action/FYI: Pt originally presented to [facility] but was then transferred to [place]. Daughter reached out to the office with update regarding pt and changes in medication. Reviewed changes with Lindsey via [employer]. Asked if any meds were d/c, but none were. Appt has been scheduled with PCP on 01/04. Daughter advised she needs to make a f/u appt with her Neurologist here in [place]. Pt had f/u appt with Neurosurgeon on 12/28, but this appt was cancelled. Per Daughter she said this was a Vascular Provider, not a Neurosurgeon. Initial contact with patient post discharge, spoke to daughter, Lindsey via [employer]. Patient identified by name and . TRANSITION CARE MANAGEMENT INITIAL OUTREACH DOCUMENTATION: No data to display SUMMARY: -Pt discharged from [facility] on 12/21/24. -Admitted for: Admission Discharged 12/18/2024 - 12/21/2024 (3 days) [facility] Saji Rivera, Last attending Treatment team Acute ischemic cerebrovascular accident (CVA) involving left middle cerebral artery territory (HCC) Principal problem HOSPITAL COURSE: Per ICU transfer note 12/20 79 F with advanced dementia, HTN (more so in last 6 months) admitted with acute L weakness to [place] ED. iNIHSS 12 for which she received IV TNK, CTH neg, CTA w/ RM1 occlusion, transferred to [facility] for further management and potential EVT. Symptomatically improved after arrival without need for thrombectomy. Patient remains confused (baseline AOX1), but able to move L side this morning. MRI + RMCA stroke. Pt has improved during hospital stay and now planning home vs home health. Daughter is nurse in neurology. Recommendation is DAPT but family prefers monotherapy. Echo and dvt studyobtained benign. Plan for zio patch x 30 days. Follow up pcp 1 week and neuro as outpatient. Started on primidone for essential tremor- will continue Visit notes: This is a 79yo f, pmh of dementia and HTN, brought in by EMS to [place] ED for LFD and left sided weakness. Per report, patient's LKW was approximately 1730, prior to arriving to ED. iNIHSS 12 LFD, left sided weakness, left neglect, and slurred speech. Telestroke was consulted and recommend TNK. TNK was given at 2006. Symptoms improved to NIHSS 1 for mild left facial droop. She was briefly started on cardene infusion for SBP 190s. NIL at [facility] was consulted and recommends transferring patient toNSICU for closer neurological monitoring and possible emergent mechanical thrombectomy ASSESSMENT 79 year old female w/ PMHx significant for HTN and dementia who presented 12/18 with concern for left-sided weakness and slurred speech. TNK given at 2006. Post-TNK improved to NIH of 1, therefore thrombectomy was deferred. MRA completed yesterday noted persistent R M1 occlusion vs high-grade stenosis. No indication for neuroendovascular intervention at this time given low NIH score. Recommend continued close neuro monitoring for any exam worsening. Persistent R M1 occlusion versus high-grade stenosis noted on MRA, as well as stenoses of the bilateral psychiatric arnp, is suggestive of ICAD. Recommend DAPT for 3 months, however patient's daughter is hesitant due to somewhat frequent falls putting patient at higher risk of bleeding, may prefer single agentantiplatelet. Discussed reasoning for our recommendation with daughter who verbalized understanding. RECOMMENDATIONS - No neuroendovascular intervention indicated given low NIH - Recommend DAPT with Aspirin 81mg and Plavix 75mg daily x 3 months - Continue appropriate post-stroke care and secondary prevention per NSICU Above plan discussed with neurointerventional staff, Dr. Bonilla. SIGNATURE: Juany Guerrero PA-C Neuroendovascular Intervention 12/20/2024 Do you have a hospital follow up appointment with your PCP? Appointment on 01/04/[address] العراقي at 2:20 pm. Yes. Remind patient of appointment date, time, and location. If not within 14 calendar days of discharge - please reschedule accordingly. MEDICATIONS: Many patients have questions or concerns about their medications once they are home. Were you prescribed any new medications? Yes Were you told to hold any medications? If yes, what are those medications? Lipitor 40 mg once daily, ASA 81 mg daily, and Primidone 50 mg once daily Were any of your medications discontinued? No Do you have any questions about getting or taking your medications? No, but worried about only receiving a 30 day supply. Your discharge instructions/After visit Summary (AVS) are important in guiding you through the recovery process. Is there anything I might help you understand? No Do you have all the necessary equipment and supplies at home? Yes Medical records from recent hospitalization: Epic Gustavo Marin MA documented in this encounterJ.[facility]. [facility] Telephone encounter Note * Telephone Encounter - Gustavo Marin MA - 12/23/2024 11:27 AM EDT Pt scheduled with PCP. Will start TCM encounter for 14 day TCM. Gustavo Marin MA [facility]05-15-2025 Miscellaneous Notes* Telephone Encounter - Gustavo Marin MA - 12/23/2024 11:27 AM EDT Pt scheduled with PCP. Will start TCM encounter for 14 day TCM. Gustavo Marin MA * Telephone Encounter - Gustavo Marin MA - 12/23/2024 10:29 AM EDT Sent message back to pt's Daughter regarding pt. Meds already updated in her chart. We can completeTCM, since this is first point of contact. Did ask if any medications were d/c. Also asked if pt is scheduled to Neurology or Neurosurgeon as recommended on d/c. Reviewed chart and pt's follow up appt with Neurosurgeon was cancelled for 12/28/24 via [employer]. Gustavo Marin MA documented in this encounterJ.W. [facility]05-[facility] Telephone encounter Note * Telephone Encounter - Gustavo Marin MA - 12/23/2024 10:29 AM EDT Sent message back to pt's Daughter regarding pt. Meds already updated in her chart. We can completeTCM, since this is first point of contact. Did ask if any medications were d/c. Also asked if pt is scheduled to Neurology or Neurosurgeon as recommended on d/c. Reviewed chart and pt's follow up appt with Neurosurgeon was cancelled for 12/28/24 via [employer]. Gustavo Marin MA [facility]05-15-2025 NotePatient Outreach (ODILIAPWS) WILLEM EVANS ([id number]) 1945 F Date Time Provider Department 12/23/24 CITLALY العراقيPWS During your visit today, we recorded the following information about you: Gustavo Marin MA 12/23/2024 4:38 PM Signed TRANSITION CARE MANAGEMENT (TCM) INITIAL CONTACT Strategies Analyst Outreach Provider Action/FYI: Pt originally presented to [facility] but was then transferred to [place]. Daughter reached out to the office with update regarding pt and changes in medication. Reviewed changes with Lindsey via [employer]. Asked if any meds were d/c, but none were. Appt has been scheduled with PCP on 01/04. Daughter advised she needs to make a f/u appt with her Neurologist here in [place]. Pt had f/u appt with Neurosurgeon on 12/28, but this appt was cancelled. Per Daughter she said this was a Vascular Provider, not a Neurosurgeon. Initial contact with patient post discharge, spoke to daughter, Lindsey via [email or web address]. Patient identified by name and . TRANSITION CARE MANAGEMENT INITIAL OUTREACH DOCUMENTATION: No data to display SUMMARY: -Pt discharged from [facility] on 12/21/24. -Admitted for: Admission Discharged 12/18/2024 - 12/21/2024 (3 days) [facility] Saji Rivera DO Last attending Treatment team Acute ischemic cerebrovascular accident (CVA) involving left middle cerebral artery territory (HCC) Principal problem HOSPITAL COURSE: Per ICU transfer note 12/20 79 F with advanced dementia, HTN (more so in last 6 months) admitted with acute L weakness to [place] ED. iNIHSS 12 for which she received IV TNK, CTH neg, CTA w/ RM1 occlusion, transferred to [facility] for further management and potential EVT. Symptomatically improved after arrival without need for thrombectomy. Patient remains confused (baseline AOX1), but able to move L side this morning. MRI + RMCA stroke. Pt has improved during hospital stay and now planning home vs home health. Daughter is nurse in neurology. Recommendation is DAPT but family prefers monotherapy. Echo and dvt study obtained benign. Plan for zio patch x 30 days. Follow up pcp 1 week and neuro as outpatient. Started on primidone for essential tremor- will continue Visit notes: This is a 79yo f, pmh of dementia and HTN, brought in by EMS to [place] ED for LFD and left sided weakness. Per report, patient's LKW was approximately 1730, prior to arriving to ED. iNIHSS 12 LFD, left sided weakness, left neglect, and slurred speech. Telestroke was consulted and recommend TNK. TNK was given at 2006. Symptoms improved to NIHSS 1 for mild left facial droop. She was briefly started on cardene infusion for SBP 190s. NIL at [facility] was consulted and recommends transferring patient to NSICU for closer neurological monitoring and possible emergent mechanical thrombectomy ASSESSMENT 79 year old female w/ PMHx significant for HTN and dementia who presented 12/18 with concern for left-sided weakness and slurred speech. TNK given at 2006. Post-TNK improved to NIH of 1, therefore thrombectomy was deferred. MRA completed yesterday noted persistent R M1 occlusion vs high-grade stenosis. No indication for neuroendovascular intervention at this time given low NIH score. Recommend continued close neuro monitoring for any exam worsening. Persistent R M1 occlusion versus high-grade stenosis noted on MRA, as well as stenoses of the bilateral psychiatric arnp, is suggestive of ICAD. Recommend DAPT for 3 months, however patient's daughter is hesitant due to somewhat frequent falls putting patient at higher risk of bleeding, may prefer single agent antiplatelet. Discussed reasoning for our recommendation with daughter who verbalized understanding. RECOMMENDATIONS - No neuroendovascular intervention indicated given low NIH - Recommend DAPT with Aspirin 81mg and Plavix 75mg daily x 3 months - Continue appropriate post-stroke care and secondary prevention per NSICU Above plan discussed with neurointerventional staff, Dr. Bonilla. SIGNATURE: Juany Guerrero PA-C Neuroendovascular Intervention 12/20/2024 Do you have a hospital follow up appointment with your PCP? Appointment on 01/04/[address] العراقي at 2:20 pm. Yes. Remind patient of appointment date, time, and location. If not within 14 calendar days of discharge - please reschedule accordingly. MEDICATIONS: Many patients have questions or concerns about their medications once they are home. Were you prescribed any new medications? Yes Were you told to hold any medications? If yes, what are those medications? Lipitor 40 mg once daily, ASA 81 mg daily, and Primidone 50 mg once daily Were any of your medications discontinued? No Do you have any questions about getting or taking your medications? No, but worried about only receiving a 30 day supply. Your discharge instructions/After visit Summary (A (more content not included)...[place] [id number] NoteHNO ID: [id number] Author: LARRY MCKEON RPh Service: Pharmacy Author Type: Pharmacist Type: Plan of Care Filed: 12/21/2024 13:43 Note Text: DISCHARGE MEDICATION REVIEW BY PHARMACY Patient Name: Willme Evans Account #: Data Unavailable Admission Date: 12/18/2024 Date of Contact: December 21, 2024 Time of Contact: 1:42 PM Medication list was reviewed by a Pharmacist for drug interactions or drug related problems:Yes Below is a summary of pharmacist recommendations discussed with LIP: No recommendations at this time from discharge medication list. Ischemic Stroke Care Path Core Measures High intensity statin ordered? Yes: atorvastatin 40 mg daily Antithrombotic ordered? Aspirin Additional Neuro Recs? Primidone for essential tremor continued Larry Mckeon RPh Pager: Available via [employer] 12/21/2024 1:42 PM Medication List START taking these medications aspirin 81 mg chewable tablet 1 tablet by ORAL/FEEDING TUBE route once daily. Start taking on: December 22, 2024 atorvastatin 40 mg tablet Commonly known as: LIPITOR 1 tablet by ORAL/FEEDING TUBE route daily at bedtime. primidone 50 mg tablet Commonly known as: MYSOLINE 0.5 tablets by ORAL/FEEDING TUBE route daily at bedtime. CONTINUE taking these medications acetaminophen 500 mg tablet Commonly known as: TYLENOL EXTRA STRENGTH Take 2 tablets by mouth every 6 hours as needed for pain. busPIRone 10 mg tablet Commonly known as: BUSPAR Take 1 tablet by mouth three times a day. * DAILY MULTIVITAMIN tablet Generic drug: multivitamin * MULTIPLE VITAMINS tablet Generic drug: multivitamin * FLUoxetine 40 mg capsule Commonly known as: PROzac Take 1 capsule by mouth once daily. * FLUoxetine 20 mg capsule Commonly known as: PROzac Take 1 capsule by mouth once daily. Take along with 40 mg pill for a total of 60 mg daily gabapentin 100 mg capsule Commonly known as: NEURONTIN Take 1 capsule by mouth three times a day as needed for up to 90 days. loratadine 10 mg tablet Commonly known as: CLARITIN MELATONIN ORAL memantine 10 mg tablet Commonly known as: NAMENDA Take 1 tablet by mouth two times a day. methocarbamol 500 mg tablet Commonly known as: ROBAXIN Take 1 tablet by mouth three times a day as needed. ondansetron 4 mg tablet Commonly known as: ZOFRAN PREMARIN vaginal cream Generic drug: conjugated estrogens Use 1 g vaginally two times a week. traMADol 50 mg tablet Commonly known as: ULTRAM Take 1 tablet by mouth four times a day as needed for pain for up to 15 days. traZODone 50 mg tablet Commonly known as: DESYREL Take 1 tablet by mouth daily at bedtime. * This list has 4 medication(s) that are the same as other medications prescribed for you. Read the directions carefully, and ask your doctor or other care provider to review them with you. STOP taking these medications losartan 25 mg tablet Commonly known as: COZAAR ASK your doctor about these medications pantoprazole DR 40 mg tablet Commonly known as: PROTONIX Where to Get Your Medications These medications were sent to [facility] [address] [place], [place] [id number] [place] [id number] aspirin 81 mg chewable tablet atorvastatin 40 mg tablet primidone [facility] History of Present illness Narrative* Allyson Santos Glass Glazier - 12/21/2024 1:30 PM EDT Applied 14 day extended wear EKG patch. Pt's family present for instruction and verbalized understanding of monitor use / diary. documented in this encounterJ.W. [facility]05-13-2025 NoteHNO ID: [id number] Author: ALLYSON SANTOS Glass Glazier Service: ? Author Type: Glass Glazier Type: Progress Notes Filed: 12/21/2024 14:20 Note Text: Applied 14 day extended wear EKG patch. Pt's family present for instruction and verbalized understanding of monitor use / diary.[facility] 12-21-2024 NoteHNO ID: [id number] Author: ALEX MAYER, RN Service: Care Management Author Type: Registered Nurse Type: Care Mgt Progress Note Filed: 12/21/2024 13:30 Note Text: CARE MANAGEMENT DISCHARGE NOTE SERVICE DATE: December 21, 2024 SERVICE TIME: 1:29 PM Admission Date: 12/18/2024 LOS: 3 days Discharge Arrangement Discharge Arrangement: Home with Self Care, Home with Relative Provider Name: Citlaly العراقي MD, Caregiver Assessment Caregiver is ready, willing and able to meet the patient's needs as recommended by the inter-professional team: Yes Name of Caregiver: [place], , and family Transportation Arrangements Transportation Arrangements: Car Handoff Communication: Handoff to: Primary Care Physician Primary Care Physician Name/Phone: Citlaly العراقي MD, Additional Information: Pt is being discharged home with no skilled needs. Per family, another family member is able to work with pt for therapy, if needed. Family to transport pt home at time of discharge. SIGNATURE: Alex Mayer RN, BSN PATIENT NAME: Willem Evans DATE: December 21, 2024 TIME: 1:29 [facility]05-12-2025 NoteHNO ID: [id number] Author: ADARSH TOUSSAINT MD Service: Neurology ICU Author Type: Physician Type: Progress Notes Filed: 12/20/2024 15:45 Note Text: Neuro ICU Progress Note (Staff Attestation) This is a 79yo f, pmh of dementia and HTN, brought in by EMS to [place] ED for LFD and left sided weakness. Per report, patient's LKW was approximately 1730, prior to arriving to ED. iNIHSS 12 LFD, left sided weakness, left neglect, and slurred speech. Telestroke was consulted and recommend TNK. TNK was given at 2006. Symptoms improved to NIHSS 1 for mild left facial droop. She was briefly started on cardene infusion for SBP 190s. NIL at [facility] was consulted and recommends transferring patient to NSICU for closer neurological monitoring and possible emergent mechanical thrombectomy. I have personally performed a face to face assessment of the patient and have reviewed the PA/SUPERINTENDENT QUARRY/Resident/Medical Student note. Plan of care discussed with: Provider, RN, Patient. We made the following changes during rounds: Regular diet Progressive mobility Actions/Plans: ASA Statin PRimidone PT, OT Progressive mobility Out of bed to chair SCDs Sq heparin Transfer to floor Stroke team follow up DISPO: FLoor Brief Exam Findings: Awake, alert, hard of hearing UE 4/5 , LE 3-4/5 IBETH Tremors - likely essential tremors DNR - DNI per prior patient wishes and family request ==== The patient currently has the following hospital problems: Principal Problem: Acute ischemic stroke (HCC) Active Problems: Mixed hyperlipidemia Essential tremor Resolved Problems: * No resolved hospital problems. * ==== This patient has a high probability of sudden, clinically significant deterioration, which requires the highest level of physician preparedness to intervene urgently. I managed/supervised life or organ supporting interventions that required frequent physician assessment. I devoted my full attention to the direct care of this patient for the amount of time indicated below. Time I spent with family or surrogate(s) is included only if the patient was incapable of providing the necessary information or participating in medical decision making. Time devoted to teaching is not included. Plan of care rounds were performed and the ICU checklist was reviewed and completed. Present on Admission: Acute ischemic stroke (HCC) Essential tremor Mixed hyperlipidemia Hypokalemia Cerebral edema (HCC) Benign essential tremor History of dementia Signature: Adarsh Toussaint MD [facility] Date: 12/20/2024 Time: 3:39 [facility]05-12-2025 NoteHNO ID: [id number] Author: DHIRAJ KRAUS LSW Service: Care Management Author Type: Biscuit Maker Type: Care Mgt Progress Note Filed: 12/20/2024 14:44 Note Text: CARE MANAGEMENT PROGRESS NOTE SERVICE DATE: 12/20/2024 SERVICE TIME: 2:42 PM LOS: 2 days SW Consult Chart reviewed. Pt has a history of dementia and is confused, unable to complete stroke depression screen at this time. SIGNATURE: KECIA Navarrete PATIENT NAME: Willem Evans DATE: December 20, 2024 TIME: 2:42 [facility]05-12-2025 NoteHNO ID: [id number] Author: RIMA BARRAGAN APRN.CNP Service: Neurology ICU Author Type: Nurse Practitioner Type: Progress Notes Filed: 12/20/2024 10:52 Note Text: SERVICE DATE: 12/20/2024 SERVICE TIME: 10:52 AM NEURO ICU PROGRESS NOTE DATE OF ADMISSION: 12/18/2024 Subjective Hospital Course: 12/20: NAEON. MRI showing R MCA territory acute infarcts. MRA with severe stenosis of R M1. ASA, SQH started. Awaiting TTE. Transfer to [facility]. Objective BP 162/75 Pulse 74 Temp 36.2 ?C (97.2 ?F) (Temporal) Resp 19 Wt 61.6 kg (135 lb 12.9 oz) SpO2 92% Weight change: Neuro: awake, up in chair eating breakfast GCS: Eyes: 4. Spontaneous Verbal: 4: Confused Motor: 6: Obeys Motor commands Total: 14 Awake, alert and oriented to self only. Follows commands. Perrl 4b, EOM intact. Visual ho intact. L facial droop. Speech clear. NASH 5/5. No drift or ataxia. Sensation intact. CV: RRR on tele. No m/g/r Pulm: CTAB, even unlabored on RA GI/: +BS all quadrants. Abd soft, nontender Skin/Extremities: Edema- No Peripheral pulses- Present all extremities Wounds/Drsgs- No Breakdown- No Diagnostic tests reviewed for today's visit: Most recent labs and imaging results. Most recent EKG Lines, Drains, and Airways Line Duration Peripheral 12/18/241999 External Facility Left Forearm 20 Gauge 1 day Peripheral 12/18/241999 External Facility Right Wrist 20 Gauge 1 day ICU Checklist Last Documented/Reviewed time: 12/20/2024 8:45 AM ICU Consent Complete?: Yes ICU Code Status History assess/Full code by default: No, active code status present A= Assess, Prevent, Manage Pain Pain adequately controlled?: Yes C= Choice of Sedation and Analgesia RASS at Goal?: Yes B= Both Spontaneous Awakening and Breathing Trials Ventilator: None D= Delirium: Assess, Prevent and Manage ICU Delirium Status: CAM Negative - no action required Sleep adequate?: Yes Restraint Status: None E= Early Mobility/Excercise ICU Mobility: ICU Mobility Goal: Bed rest/turns only, Head of bed 60 degrees F= Family Engagement and Empowerment ICU plan of care visit at bedside in last 24 hours: Yes, Provider, RN, Patient/ designee ICU Disposition: ICU Disposition-POC Detail: To be determined Prevention: Line Status: None Flores Status: None Pressure Injury Status: None GI/Stress Ulcer Prophylaxis: None - not required Nutrition is at Goal: Yes VTE Prophylaxis: Chemoprophylaxis: Heparin SQ Mechanical Prophylaxis: Knee high SCD PERSONAL INVOLVEMENT IN CARE: Reviewing initiation, responses and adjustments to therapies, coordination of care, and updating family with Staff Physician, Dr. Toussaint. Assessment AND Plan This is a 79yo f, pmh of dementia and HTN, brought in by EMS to [place] ED for LFD and left sided weakness. Per report, patient's LKW was approximately 1730, prior to arriving to ED. iNIHSS 12 LFD, left sided weakness, left neglect, and slurred speech. Telestroke was consulted and recommend TNK. TNK was given at 2006. Symptoms improved to NIHSS 1 for mild left facial droop. She was briefly started on cardene infusion for SBP 190s. NIL at [facility] was consulted and recommends transferring patient to NSICU for closer neurological monitoring and possible emergent mechanical thrombectomy. Neurology Essential tremor- (present on admission) Primidone 25mg HS started - Monitor for drowsiness Acute ischemic stroke (HCC)- (present on admission) P/W LFD, left sided weakness and drift, neglect and slurred speech. CTH showed no acute process. CTA noted R M1 occlusion. TNK given at 2006 on 12/18 MRI/MRA Brain, Neck (12/19) - Patchy areas of restricted diffusion in the right MCA territory consistent with acute infarct. - High-grade stenosis or occlusion of the proximal right M1 segment, with attenuated flow in the distal right M1 and M2 branches. This appears similar to the CTA performed 12/18/2024. - Probable proximal right P2 stenosis and mild to moderate left P2 narrowing. - No evidence of carotid or vertebral artery stenosis. Plan: - Q4h neuros - tele -stroke care path place -stroke education -SBP<180 -PRN Labetalol - ASA 81mg monotherapy Per request of family, no DAPT d/t falls -Echo with bubble study -24hr Post TNK CTH - stable -PT/OT/GEOLOGICAL DRAFTER -DVT ppx: SCDs, SQ Lovenox -Lipitor 40mg -Senna for bowel regimen Cardiovascular Mixed hyperlipidemia- (present on admission) LDL 64, goal <70 Lipitor 40mg HS Medication and Non-Pharmacologic VTE Prophylaxis/Anticoagulants Anticoagulant AND Antiplatelet Medications (From admission, onward) Start Dose Route Frequency Last Action Ordered Stop 12/20/24 1200 enoxaparin 40 mg injection (LOVENOX) (enoxaparin injection (LOVENOX)) 40 mg SUBCUTANEOUS EVERY 24 HOURS Ordered 12/20/24 1046 -- 12/20/24 09 (more content not included)...[facility]05-12-2025 NoteHNO ID: [id number] Author: VALE CEDENO RN Service: Care Management Author Type: Registered Nurse Type: Care Mgt Initial Assessment Filed: 12/20/2024 09:34 Note Text: CARE MANAGEMENT: ASSESSMENT AND DISCHARGE PLAN SERVICE DATE: December 20, 2024 SERVICE TIME: 9:28 AM PCP: Citlaly العراقي MD Primary Contact: Extended Emergency Contact Information Primary Emergency Contact: Virginia Evans Address: [address] [place] [id number] Relation: Spouse Secondary Emergency Contact: Lindsey Bell Mobile Relation: Daughter Admission Status: Inpatient Insurance Provider: [facility] POS Discharge Planning requested by: Per Department Practice Potential Transition Plans Advance Directives Current Advance Directive: None Hedis Specialist Attempted to Assist with AD Completion: No Unable to Assist Due To:: Delirium Current Living Arrangements and Support Lives with: Spouse/significant other Type of Residence: Private Residence (Apartment or Condo) Support: Children, Spouse/significant other How do you manage to accomplish the following: Independent: Ambulation, Bathe/Shower, Dress, Going to the bathroom Needs Assistance: Medication Management Dependent: Meals/Meal Prep, Transportation to appointments/community Current Services/Equipment Current Post-Acute Service(s): DME Current DME Type: Cane, Standard walker Discharge Planning Patient Goal(s): Be able to go home, Independent living, General wellness [place] of Choice Explained: [place] of Choice Given: Yes Level of Care Discussed: Halfway Facility Are you interested in bedside delivery of your medications? No Discharge Planning Participant(s): Patient, Spouse/significant other, Children Patient/Family Comments: Caregiver Assessment: Caregiver is ready, willing and able to meet the patient's needs as recommended by the inter-professional team: Yes Name of Caregiver: Virginia, spouse Transport at Discharge: Transportation Arrangements: To Be Determined Needs Prior to Discharge: Needs Prior to Discharge: To Be Determined Post-Acute Discharge Plan: Met with patient's spouse, daughter Lindsey. Patient lives at home with her Virginia. reports it takes patient some time to do ADLs, and he offers assist as needed, Spouse provides transport. Per , patient has walker and cane but does not use them, has been shuffling' when she walks. +PCP, +RX coverage. Daughter voiced likely need to look into placement or AL. Referral made to Criss Giselle with [facility] to reach out to daughter Lindsey to provide information. A SNF list also provided to daughter to review. Await therapy evals. Disposition TBD. CM to continue to follow. SIGNATURE: Vale Cedeno RN PATIENT NAME: Willem Evans DATE: December 20, 2024 TIME: 9:28 [facility]05-10-2025 History of Present illness Narrative* Howie Leonardo, YSABEL.ANALYST COMPETITIVE INTELLIGENCE - 12/18/2024 11:00 PM EDT Critical Care Transport Note Patient Name: Willem Evans Service Date: 12/18/24 Referring Facility: [facility] [place] [facility] SUBJECTIVE/CHIEF COMPLAINT: Stroke REASON FOR TRANSPORT: LVO requiring interventional neurology services not available at the referring facility History of Present Illness: The following history is what was known to CCT team at time of given care and summarized through: review of available medical records, referring provider report, and referring nursing report Willem Evans is a 79 year old female with a past medical history significant for dementia (baselineto self), OA and anxiety. She presented to [facility] this evening for evaluation of acute neurological deficits. Patient was noted to be LKW @ 1730 prior to taking a nap. Patient wasthan noted to develop acute onset of L facial droop and L arm weakness. Patient was brought to the ER where he was noted to have L neglect, L sided weakness and facial droop. Initial NIHSS score of 12. Patient was taken for CT of the brain which revealed no acute abnormalities. Brain CTA noted acute LVO of R M1 MCA. At that time it was decided to administer TNK 16mg. Patient's SBP increased to 190s and was treated with labetalol and Cardene IV gtt. At 2200, pt was assessed to have significant improvement in symptoms with NIHSS 1 for continued L facial droop. Shortly after that she again had an NIHSS of 12 with similar symptoms to presentation necessitating a repeat Head CT. At this time, the physician managing the patient requested transfer to [facility] for tertiary and/or quaternary services unavailable at the referring facility. Patient condition at time of exam was: Acutely ill. Due to the unique circumstances of the patient, it was determined that this was the closest, most appropriate facility by referring physician. The physician managing the patient requested the [facility] Critical Care Transport Team transport and treat the patient for the purpose of tertiary care, evaluation, and management of her acute neurological condition(s). Air medical transport was requested to reduce the [id number] time,20 minutes by air vs. approximately 55 minutes by ground, with the potential for increased ground tr ansport time secondary to: facility or provider reports delayed or no ground transport available, distance between facilities and the patient's condition requiring an emergent procedure or evaluationnot available at the referring facility, and distance between facilities and ground round transporttime would be excessive and detrimental to patient given current clinical status. ROS: Could not obtain due to patient's mental status/critical illness PAST MEDICAL HISTORY: PAST MEDICAL HISTORY Diagnosis Date Allergic rhinitis, cause unspecified Generalized anxiety disorder with social component Irritable bowel syndrome mainly constipation Osteoporosis, unspecified per prior DEXA times 2 Overweight(278.02) PAST SURGICAL HISTORY: PAST SURGICAL HISTORY Procedure Laterality Date COLONOSCOPY [address] ABEL [facility], NORMAL LIG/TRNSXJ FLP TUBE ABDL/VAG APPR UNI/BI Tubal ligation she was 36 years old ALLERGIES: ALLERGIES No Known Allergies SOCIAL HISTORY: Social History Tobacco Use Smoking status: Never Smokeless tobacco: Never Tobacco comments: Goes by Willem Vaping Use Vaping status: Never Used Substance Use Topics Alcohol use: No Drug use: No FAMILY HISTORY: FAMILY HISTORY Problem Relation Age of Onset Stroke Father at 85, healthy til then Breast Cancer Maternal Aunt roughly 40 Colon Cancer Other none Coronary Artery Disease Other none Diabetes Other none HOME MEDICATIONS: Current Outpatient Medications Medication Instructions acetaminophen (TYLENOL EXTRA STRENGTH) 1,000 mg, ORAL, EVERY 6 HOURS NEEDED busPIRone (BUSPAR) 10 mg, ORAL, 3 TIMES DAILY conjugated estrogens (PREMARIN) vaginal cream 0.5 applicators, VAGINAL, 2 TIMES WEEKLY DAILY MULTIVITAMIN TAB Take one(1) tablet daily. FLUoxetine (PROZAC) 40 mg, ORAL, DAILY FLUoxetine (PROZAC) 20 mg, ORAL, DAILY, Take along with 40 mg pill for a total of 60 mg daily gabapentin (NEURONTIN) 100 mg, ORAL, 3 TIMES DAILY NEEDED loratadine (CLARITIN) 10 mg tablet Take by mouth. losartan (COZAAR) 25 mg, ORAL, DAILY MELATONIN ORAL 6 mg, AT BEDTIME memantine (NAMENDA) 10 mg, ORAL, 2 TIMES DAILY methocarbamol (ROBAXIN) 500 mg, ORAL, 3 TIMES DAILY NEEDED multivitamin (MULTIPLE VITAMINS) tablet Take by mouth. ondansetron (ZOFRAN) 4 mg, EVERY [address] (PROTONIX) 40 mg, EVERY 12 HOURS traMADol (ULTRAM) 50 mg, ORAL, 4 TIMES DAILY NEEDED traZODone (DESYREL) 50 mg, ORAL, AT BEDTIME Medications Administered by Referring Facility: TNK 16mg @ 2107 NSS Labetalol 20mg IVP Nicardipine IV gtt @ 5mg/hr OBJECTIVE: Recent Labs, Diagnostics & Procedure Reports by OSH reviewed as available CBC: WBC 7.7k, Hgb 10.9, Hct 32.6, Plt 381K CHEMISTRY: Na 142, K 3.6, Cl 107, CO2 23.5, BUN 12, SCr 0.92, Glu 147 Coags: INR 0.9, PT 12.5 Diagnostics & Procedure Reports ECG: normal EKG, normal sinus rhythm CT Brain: No acute intracranial abnormality; no acute infarct, intracranial hemorrhage or extra-axial collection. Chronic microvascular ischemia and involutional changes. CTA Brain: Abrupt cutoff with resultant occlusion of a short segmental R M1 MCA branch with distal reconstruction proximal to the M2. Scattered atherosclerotic calcification otherwise, without significant stenosis. PHYSICAL EXAM: Upon CCT Arrival at Referring Facility Invasive Lines/Devices/Tubes Placed by Referring Facility: Peripheral IV Access Vital Signs: HR 76bpm, BP 161/77mmHg, RR 17, SpO2 94% Oxygen/Ventilator Settings: RA HEENT: normocephalic, EOMI, PERRL. Oropharynx clear, Mucous membranes moist Respiratory: clear to auscultation bilaterally,no respiratory distress,no rales,no rhonchi,no wheezing. Cardiovascular: regular rate and rhythm. Gastrointestinal: soft, nontender, nondistended. Genitourinary: Flores intact w/ yellow tinged urine Musculoskeletal: No clubbing, cyanosis or edema Skin: normal Neurologic: awake alert and normally oriented per baseline (oriented to self and critical access hospital hospital,2019) GCS: Eyes: spontaneous = 4, Verbal: confused = 4, Motor: obeys commands =6, and GCS Total: 14 NIHSS: 1(a). Mental Status - LOC 0 = Alert and Attentive 1(b). LOC Questions 2 = Neither (baseline) 1(c). LOC-Commands 0 = Both 2. Gaze 0 = Normal 3. Visual Ho 0 = Full 4. Facial Weakness 1 = Minor, lower (left) 5(a). Left Arm 0 = No drift 5(b). Right Arm 0 = No drift 6(a). Left Leg 0 = No drift 6(b). Right Leg 0 = No drift 7. Ataxia 0 = Absent 8. Sensory 0 = Normal 9. Aphasia 0 = None 10. Dysarthria 0 = Absent 11. Neglect 0 = None NIHSS Total (0-42): 3 CRITICAL CARE COURSE Upon bedside arrival at referring facility the patient was assessed and detailed physical exam performed. Initial exam findings as described above. The patient was placed on the transport monitor andall transport equipment transitioned in standard fashion. The patient was transferred to the transport cot and transported to the Aircraft and loaded without incident. The patient was medically managed, monitored, and reassessed during transport. Medications Managed & Administered by CCT: Nicardipine IV gtt @ 5mg/hr - stopped Procedures Performed by CCT: None ASSESSMENT/PLAN: Willem Evans is a 79 year old female Acute R M1 MCA Ischemic Stroke Altered Mental Status Dementia Acute Neurological Deficits Plan: - Presented with L sided weakness, neglect and facial droop, LKW was 1730, CT revealed R M1 MCA occlusion - Patient was given TNK @ 2107. - Will maintain BP < 180/105 Post-Thrombolysis - Close Neuro Monitoring/Reassessment - Close Hemodynamic Monitoring - HOB > 30 degrees - Expedite transfer to [facility] Neuro ICU post possible thrombectomy The transport was completed without significant incident or change in the patient's status. The patient was transported to by [facility] (Helicopter) for tertiary and/or quaternary evaluation and management of her Emergent Medical and Surgical condition(s). Upon arrival to the receiving facility, a [id number] report was given to bedside staff in bed# 3210. Patient care was transferred. The patient condition was Acutely Ill at the time of transfer. SPECIAL EQUIPMENT: None MODE OF TRANSPORT: [facility] (Helicopter) CRITICAL CARE TIME: I personally performed 40 minutes of critical care time exclusive of separatelybillable procedures, ambulance charges and treating other patients. This was necessary to treat or prevent further deterioration of the following condition(s): Respiratory compromise, Hemodynamic compromise, Acute stroke, Cardiovascular Impairment, Respiratory impairment, and JUNIOR RECRUITER Impairment which the patient had and/or had a high probability of suddenly developing. SIGNATURE: Howie Leonardo APRN.CNP Acute Care Nurse Practitioner [facility] Critical Care Transport Team documented in this encounter[facility]. [facility] NoteHNO ID: [id number] Author: HOWIE LEONARDO APRN.CNP Service: ? Author Type: Nurse Practitioner Type: Progress Notes Filed: 12/19/2024 01:16 Note Text: Critical Care Transport Note Patient Name: Willem Evans Service Date: 12/18/24 Referring Facility: [facility] ED Accepting [place] [facility] SUBJECTIVE/CHIEF COMPLAINT: Stroke REASON FOR TRANSPORT: LVO requiring interventional neurology services not available at the referring facility History of Present Illness: The following history is what was known to CCT team at time of given care and summarized through: review of available medical records, referring provider report, and referring nursing report Willem Evans is a 79 year old female with a past medical history significant for dementia (baseline to self), OA and anxiety. She presented to [facility] this evening for evaluation of acute neurological deficits. Patient was noted to be LKW @ 1730 prior to taking a nap. Patient was than noted to develop acute onset of L facial droop and L arm weakness. Patient was brought to the ER where he was noted to have L neglect, L sided weakness and facial droop. Initial NIHSS score of 12. Patient was taken for CT of the brain which revealed no acute abnormalities. Brain CTA noted acute LVO of R M1 MCA. At that time it was decided to administer TNK 16mg. Patient's SBP increased to 190s and was treated with labetalol and Cardene IV gtt. At 2200, pt was assessed to have significant improvement in symptoms with NIHSS 1 for continued L facial droop. Shortly after that she again had an NIHSS of 12 with similar symptoms to presentation necessitating a repeat Head CT. At this time, the physician managing the patient requested transfer to [facility] [place] for tertiary and/or quaternary services unavailable at the referring facility. Patient condition at time of exam was: Acutely ill. Due to the unique circumstances of the patient, it was determined that this was the closest, most appropriate facility by referring physician. The physician managing the patient requested the [facility] Critical Care Transport Team transport and treat the patient for the purpose of tertiary care, evaluation, and management of her acute neurological condition(s). Air medical transport was requested to reduce the [id number] time, 20 minutes by air vs. approximately 55 minutes by ground, with the potential for increased ground transport time secondary to: facility or provider reports delayed or no ground transport available, distance between facilities and the patient's condition requiring an emergent procedure or evaluation not available at the referring facility, and distance between facilities and ground round transport time would be excessive and detrimental to patient given current clinical status. ROS: Could not obtain due to patient's mental status/critical illness PAST MEDICAL HISTORY: PAST MEDICAL HISTORY Diagnosis Date Allergic rhinitis, cause unspecified Generalized anxiety disorder with social component Irritable bowel syndrome mainly constipation Osteoporosis, unspecified per prior DEXA times 2 Overweight(278.02) PAST SURGICAL HISTORY: PAST SURGICAL HISTORY Procedure Laterality Date COLONOSCOPY [address] ABEL [facility], NORMAL LIG/TRNSXJ FLP TUBE ABDL/VAG APPR UNI/BI Tubal ligation she was 36 years old ALLERGIES: ALLERGIES No Known Allergies SOCIAL HISTORY: Social History Tobacco Use Smoking status: Never Smokeless tobacco: Never Tobacco comments: Goes by Willem Vaping Use Vaping status: Never Used Substance Use Topics Alcohol use: No Drug use: No FAMILY HISTORY: FAMILY HISTORY Problem Relation Age of Onset Stroke Father at 85, healthy til then Breast Cancer Maternal Aunt roughly 40 Colon Cancer Other none Coronary Artery Disease Other none Diabetes Other none HOME MEDICATIONS: Current Outpatient Medications Medication Instructions acetaminophen (TYLENOL EXTRA STRENGTH) 1,000 mg, ORAL, EVERY 6 HOURS NEEDED busPIRone (BUSPAR) 10 mg, ORAL, 3 TIMES DAILY conjugated estrogens (PREMARIN) vaginal cream 0.5 applicators, VAGINAL, 2 TIMES WEEKLY DAILY MULTIVITAMIN TAB Take one(1) tablet daily. FLUoxetine (PROZAC) 40 mg, ORAL, DAILY FLUoxetine (PROZAC) 20 mg, ORAL, DAILY, Take along with 40 mg pill for a total of 60 mg daily gabapentin (NEURONTIN) 100 mg, ORAL, 3 TIMES DAILY NEEDED loratadine (CLARITIN) 10 mg tablet Take by mouth. losartan (COZAAR) 25 mg, ORAL, DAILY MELATONIN ORAL 6 mg, AT BEDTIME memantine (NAMENDA) 10 mg, ORAL, 2 TIMES DAILY methocarbamol (ROBAXIN) 500 mg, ORAL, 3 TIMES DAILY NEEDED multivitamin (MULTIPLE VITAMINS) tablet Take by mouth. ondansetron (ZOFRAN) 4 mg, EVERY [address] (PROTONIX) 40 mg, EVERY 12 HOURS traMADol (ULTRAM) 50 mg (more content not included)...[facility] 12-18-2024 NoteHNO ID: [id number] Author: ALEX VENTURA MD Service: Electrophysiology Author Type: Physician Type: Procedures Filed: 01/07/2025 15:11 Note Text: Patient Name: Willem Evans : 1945 Ordering Provider: ANALI RICKS Indication: I63.512 Cerebral infarction due to unspecified occlusion Type of Monitor: Extended Monitoring-Zio Patch Enrollment Dates: 12/21/2024-01/03/2025 IRHYTHM FINDINGS: Patient had a min HR of 53 bpm, max HR of 167 bpm, and avg HR of 69 bpm. Predominant underlying rhythm was Sinus Rhythm. 14 Supraventricular Tachycardia runs occurred, the run with the fastest interval lasting 9 beats with a max rate of 167 bpm, the longest lasting 13 beats with an avg rate of 98 bpm. Isolated SVEs were rare (<1.0%), SVE Couplets were rare (<1.0%), and SVE Triplets were rare (<1.0%). Isolated VEs were rare (<1.0%), VE Couplets were rare (<1.0%), and no VE Triplets were present. Ventricular Trigeminy was present.[facility]05-10-2025 Radiology Diagnostic study note [facility] Imaging Services [address] [place] [address] Brain/Head without Contrast MR#: [id number] Acct: [id number] Name: WILLEM EVANS Rep #: [id number] : 1945 F 79 From: Emilia Chu MD PCP: Dr. Citlaly العراقي MD Status: RE G ER Study:Brain/Head without Contrast Date of Exa m: 12/18/24 Exam# [id number] Ordering Dr: Lopez Alejandra DO PROCEDURE: BRAIN/HEAD WITHOUT CONTRAST 12/18/2024 REASON FOR EXAM: LEFT SIDE WEAKNESS TECHNIQUE: Head CT without intravenous contrast. Coronal and Sagittal reconstruction serieswere provided. One or more dose reduction techniques were used (e.g., Automated exposure control, adjustment of the mA and/or kV according to patient size, use of iterative reconstruction technique. COMPARISON: CT brain 12/18/2024 FINDINGS: No acute intracranial hemorrhage, mass, mass effect, midline shift or pathologicextra-axial fluid collection. Mild parenchymal atrophy with commensurate increase in CSF containing spaces. Patchy white matter hypodensities, patient demographics favor chronic microvascular ischemic changes. Paranasal sinuses and mastoid air cells are clear. The calvarium is grossly intact. CT/Brain/Head without Contrast IMPRESSION: No acute intracranial abnormality. Chronic microvascular ischemia and involutional changes. Reading Location: [facility] CC: Dr. Citlaly العراقي MD; DO Sadiq Davis Nut Tapper: Signed [facility]05-10-2025 Radiology Diagnostic study note [facility] Imaging Services [address] [place] [address] STROKE CTA Head AND Neck W/Con MR#: [id number] Acct: [id number] Name: WILLEM EVANS Rep #: [id number] : 1945 F 79 From: Emilia Chu MD PCP: Dr. Citlaly العراقي MD Status: RE G ER Study:STROKE CTA Head AND Neck W/Con Date of Exam: 12/18/24 Exam# [id number] Ordering Dr: Lopez Alejandra DO PROCEDURE: STROKE CTA HEAD AND NECK W/CON 12/18/2024 REASON FOR EXAM: NEURO DEFICIT, ACUTE, STROKE SUSPECTED TECHNIQUE: CTA imaging of the head and neck from the aortic arch to the skull vertex with out contrast and with intravenous contrast. Multiplanar and multisequence images were obtained. CONTRAST: Omnipaque 350 VOLUME: 100 mL Not Provided Gauge IV One or more dose reduction techniques were used (e.g., Automated exposure control, adjustment of the mA and/or kV according to patient size, use of iterative reconstruction technique). COMPARISON: None FINDINGS: Aortic Arch: Three-vessel arch branch anatomy. Atherosclerotic calcification without hemodynamically significant stenosis Brachiocephalic and Subclavians: Mild atherosclerotic plaque without significantstenosis. RIGHT Carotid: Right CCA: Mild calcified and soft plaque. Right ICA: Mild calcified and soft plaque. Maximum stenosis (NASCET): 10 % Right ECA: Unremarkable. LEFT Carotid: Left CCA: Unremarkable. Left ICA: Unremarkable. Maximum stenosis (NASCET): 0 % Left ECA: Unremarkable. Vertebrals: Codominant. Arise from the subclavians. Both vertebrals form the basilar. RIGHT Vertebral: Unremarkable. LEFT Vertebral: Unremarkable. Anatomy: Freeman of [place] anatomy is normal. Aneurysm or avm: No intracranial aneurysms or large vascular malformations are identified. Anterior cerebral arteries: Unremarkable: Middle cerebral arteries: There is abrupt cutoff of the right M1 MCA branch (series 2 image 299), with a short-segment occlusion. There is reconstitution of the distal right M1, with mild-moderate stenosis, likely secondary to noncalcified plaque. Remainder of the M2 and M3 branches appear within normal limits although slightly attenuated in caliber. The left MCA demonstrates normal caliber and perfusion. Basilar artery: Unremarkable. Posterior cerebral arteries: Unremarkable. Other major branches of the posterior circulation: Unremarkable. Major venous structures: Unremarkable. Other findings: Neck: No lymphadenopathy. Lungs: Lung apices are clear. Bones: Degenerative changesof the cervical spine. 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 Scattered atherosclerotic calcification otherwise, without hemodynamically significant stenosis. Red Alert: Findings communicated with on 12/18/2024 at 9 p.m. Reading Location: [facility] CC: Dr. Citlaly العراقي MD; Dr. Lopez Alejandra DO ~ Nut Tapper: Signed [facility]05-10-2025 Radiology Diagnostic study note [facility] Imaging Services [address] [place] [address] STROKE Brain/Head without Cont MR#: [id number] Acct: [id number] Name: WILLEM EVANS Rep #: [id number] : 1945 F 79 From: Emilia Chu MD PCP: Dr. Citlaly العراقي MD Status: RE G ER Study:STROKE Brain/Head without Cont Date of Exam: 12/18/24 Exam# [id number] Ordering Dr: Lopez Alejandra DO PROCEDURE: STROKE BRAIN/HEAD WITHOUT CONT 12/18/2024 REASON FOR EXAM: NEURO DEFICIT, ACUTE, STROKE SUSPECTED TECHNIQUE: Head CT without intravenous contrast. Coronal and Sagittal reconstruction serieswere provided. One or more dose reduction techniques were used (e.g., Automated exposure control, adjustment of the mA and/or kV according to patient size, use of iterative reconstruction technique. COMPARISON: None FINDINGS: No acute intracranial hemorrhage, mass, mass effect, midline shift or pathologicextra-axial fluid collection. Mild parenchymal atrophy with commensurate increase in CSF containing spaces. Patchy white matter hypodensities, patient demographics favor chronic microvascular ischemic changes. Paranasal sinuses and mastoid air cells are clear. The calvarium is grossly intact. CT/STROKE Brain/Head without Cont IMPRESSION: No acute intracranial abnormality; no acute infarct, intracranial hemorrhage or extra-axial collection. Chronic microvascular ischemia and involutional changes. Reading [facility] CC: Dr. Citlaly العراقي MD; Dr. Lopez Alejandra DO ~ Nut Tapper: Signed [facility]05-02-2025 Telephone encounter Note* Telephone Encounter - Citlaly العراقي MD - 12/10/2024 10:47 AM EDT OK to refill as ordered Citlaly العراقي MD [facility]05-02-2025 Miscellaneous Notes* Telephone Encounter - Citlaly العراقي MD - 12/10/2024 10:47 AM EDT OK to refill as ordered Citlaly العراقي MD * Telephone Encounter - Trent Feliciano RN - 12/10/2024 8:40 AM EDT The patient has been identified by name and date of : Yes Caregiver verified no other encounters exist for this prescription request: Yes Caregiver confirmed with patient/requestor that no other refills are due, in the near future, with this provider at this time: Yes The last office visit in the department: 08/12/2024 Does the patient have a future office visit with this provider/department: Yes 03/01/2025 Requested Prescriptions Pending Prescriptions Disp Refills traMADol (ULTRAM) 50 mg tablet 30 tablet 1 Sig: Take 1 tablet by mouth four times a day as needed for pain for up to 15 days. busPIRone (BUSPAR) 10 mg tablet 90 tablet 5 Sig: Take 1 tablet by mouth three times a day. Trent Feliciano RN December 10, 2024 8:41 AM documented in [facility] encounter[facility] Telephone encounter Note * Telephone Encounter - Julia Nichols LPN - 12/10/2024 9:39 AM EDT TC to Pt. Updated her she already had medication filled and just need to call her pharmacy. Julia Nichols LPN [facility]05-02-2025 Miscellaneous Notes* Telephone Encounter - Julia Nichols LPN - 12/10/2024 9:39 AM EDT TC to Pt. Updated her she already had medication filled and just need to call her pharmacy. Julia Nichols LPN * Telephone Encounter - Trent Feliciano RN - 12/10/2024 8:42 AM EDT The patient has been identified by name and date of : Yes Caregiver verified no other encounters exist for this prescription request: Yes Caregiver confirmed with patient/requestor that no other refills are due, in the near future, with this provider at this time: Yes The last office visit in the department: 07/14/2024 Does the patient have a future office visit with this provider/department: Yes 04/20/2025 Requested Prescriptions Pending Prescriptions Disp Refills memantine (NAMENDA) 10 mg tablet 180 tablet 1 Sig: Take 1 tablet by mouth two times a day. Trent Feliciano RN December 10, 2024 8:42 AM documented in this encounterJ[facility] Telephone encounter Note * Telephone Encounter - Trent Feliciano RN - 12/10/2024 8:42 AM EDT The patient has been identified by name and date of : Yes Caregiver verified no other encounters exist for this prescription request: Yes Caregiver confirmed with patient/requestor that no other refills are due, in the near future, with this provider at this time: Yes The last office visit in the department: 07/14/2024 Does the patient have a future office visit with this provider/department: Yes 04/20/2025 Requested Prescriptions Pending Prescriptions Disp Refills memantine (NAMENDA) 10 mg tablet 180 tablet 1 Sig: Take 1 tablet by mouth two times a day. Trent Feliciano RN December 10, 2024 8:42 AM [facility]05-02-2025 Telephone encounter Note* Telephone Encounter - Trent Feliciano RN - 12/10/2024 8:40 AM EDT The patient has been identified by name and date of : Yes Caregiver verified no other encounters exist for this prescription request: Yes Caregiver confirmed with patient/requestor that no other refills are due, in the near future, with this provider at this time: Yes The last office visit in the department: 08/12/2024 Does the patient have a future office visit with this provider/department: Yes 03/01/2025 Requested Prescriptions Pending Prescriptions Disp Refills traMADol (ULTRAM) 50 mg tablet 30 tablet 1 Sig: Take 1 tablet by mouth four times a day as needed for pain for up to 15 days. busPIRone (BUSPAR) 10 mg tablet 90 tablet 5 Sig: Take 1 tablet by mouth three times a day. Trent Feliciano RN December 10, 2024 8:41 AM [facility]03-17-2025 NoteHNO ID: [id number] Author: HERMAN PALUMBO MD Service: ? Author Type: Physician Type: Progress Notes Filed: 10/25/2024 15:56 Note Text: Acid Wash Operator offered: Patient declines. Willem Evans is a 79 year old female who presents for pessary maintenance. Patient is suffering from memory loss. Patient's states that patient did fall multiple times and with one of her falls the pessary fell out. Patient since that time has not had any issues with urinating. Patient reports has not had any pelvic pressure or any issues with prolapse. patient offers no other complaints at this time. OB History No obstetric history on file. [place] Ro[place] History LMP: Postmenopausal Age at Menarche: Age at First : Age at Menopause: [place] Roofer History Comments: Sexual Activity: Yes; Male; 1984, monogamous since; no history of STDs Contraception: No contraception data on record PAST MEDICAL HISTORY Diagnosis Date Allergic rhinitis, cause unspecified Generalized anxiety disorder with social component Irritable bowel syndrome mainly constipation Osteoporosis, unspecified per prior DEXA times 2 Overweight(278.02) PAST SURGICAL HISTORY Procedure Laterality Date COLONOSCOPY [address] ABEL [facility], NORMAL LIG/TRNSXJ FLP TUBE ABDL/VAG APPR UNI/BI Tubal ligation she was 36 years old FAMILY HISTORY Problem Relation Age of Onset Stroke Father at 85, healthy til then Breast Cancer Maternal Aunt roughly 40 Colon Cancer Other none Coronary Artery Disease Other none Diabetes Other none Social History Tobacco Use Smoking status: Never Smokeless tobacco: Never Tobacco comments: Goes by Willem [employer] Use Vaping status: Never Used Substance Use Topics Alcohol use: No Drug use: No Current Outpatient Medications Medication Sig traZODone (DESYREL) 50 mg tablet Take 1 tablet by mouth daily at bedtime. methocarbamol (ROBAXIN) 500 mg tablet Take 1 tablet by mouth three times a day as needed. gabapentin (NEURONTIN) 100 mg capsule Take 1 capsule by mouth three times a day as needed for up to 90 days. losartan (COZAAR) 25 mg tablet Take 1 tablet by mouth once daily. memantine (NAMENDA) 10 mg tablet Take 1 tablet by mouth two times a day. FLUoxetine (PROZAC) 40 mg capsule Take 1 capsule by mouth once daily. FLUoxetine (PROZAC) 20 mg capsule Take 1 capsule by mouth once daily. Take along with 40 mg pill for a total of 60 mg daily busPIRone (BUSPAR) 10 mg tablet Take 1 tablet by mouth three times a day. ondansetron (ZOFRAN) 4 mg tablet Take 4 mg by mouth every 8 hours as needed for nausea/vomiting. pantoprazole DR (PROTONIX) 40 mg tablet Take 40 mg by mouth every 12 hours. (Patient not taking: Reported on 10/25/2024) conjugated estrogens (PREMARIN) vaginal cream Use 1 g vaginally two times a week. multivitamin (MULTIPLE VITAMINS) tablet Take by mouth. loratadine (CLARITIN) 10 mg tablet Take by mouth. acetaminophen (TYLENOL EXTRA STRENGTH) 500 mg tablet Take 2 tablets by mouth every 6 hours as needed for pain. MELATONIN ORAL Take 6 mg by mouth daily at bedtime. DAILY MULTIVITAMIN TAB Take one(1) tablet daily. No current facility-administered medications for this visit. Allergies As of Date: 10/25/2024 (No Known Allergies) Fully Assessed 10/25/2024 REVIEW OF SYSTEMS SENSITIVE EXAM: The sensitive examination was discussed with the Patient or Patient's Authorized Liaison Inspection Laboratory Assistant. As applicable, any other physician, advance practice provider, medical student, or other health professional student that will be observing or involved in the sensitive examination for educational or training purposes was discussed with the Patient or Authorized Liaison Inspection Laboratory Assistant. The Patient or Authorized Liaison Inspection Laboratory Assistant has agreed to proceed with the sensitive examination. (Sensitive examination includes inspection and/or palpation of the breasts, pelvis, prostate and anorectal regions). EXAM: BP 158/90 Wt 138 lb (62.6kg) GENERAL: pleasant, female in no apparent distress HEENT: Normocephalic and atraumatic ABDOMEN: soft, non-tender, and no masses PELVIC: external genitalia normal, normal Bartholin's glands, urethra, [place]'s glands, no vulvar lesions, no cervical lesions, physiologic discharge present, normal appearing perineal body and perianal region, cystocele grade 1 BIMANUAL: uterus normal size, shape and consistency, no adnexal masses, and non-tender EXTREMITIES: normal ASSESSMENT AND PLAN: Assessment AND Plan Cystocele with prolapse Discussed with the patient if she is asymptomatic able to urinate not having any pelvic pressure can leave the pessary out at this time. If she experiences any of the symptoms as discussed with her we can replace the pessary. Patient and were both understanding and agreed to plan of care. I spent a total of 20 minutes on the date of the service which included preparing to see the patient, face-to (more content not included)...[facility]03-17-2025 History of Present illness Narrative* Herman Palumbo MD - 10/25/2024 3:09 PM EDT Acid Wash Operator offered: Patient declines. Willem Evans is a 79 year old female who presents for pessary maintenance. Patient is suffering from memory loss. Patient's states that patient did fall multiple times and with one of her falls the pessary fell out. Patient since that time has not had any issues with urinating. Patient reports has not had any pelvic pressure or any issues with prolapse. patient offers no other complaints at this time. OB History No obstetric history on file. [place] Roofer History LMP: Postmenopausal Age at Menarche: Age at First : Age at Menopause: [place] Roofer History Comments: Sexual Activity: Yes; Male; 1984, monogamous since; no history of STDs Contraception: No contraception data on record PAST MEDICAL HISTORY Diagnosis Date Allergic rhinitis, cause unspecified Generalized anxiety disorder with social component Irritable bowel syndrome mainly constipation Osteoporosis, unspecified per prior DEXA times 2 Overweight(278.02) PAST SURGICAL HISTORY Procedure Laterality Date COLONOSCOPY [address] [facility], NORMAL LIG/TRNSXJ FLP TUBE ABDL/VAG APPR UNI/BI Tubal ligation she was 36 years old FAMILY HISTORY Problem Relation Age of Onset Stroke Father at 85, healthy til then Breast Cancer Maternal Aunt roughly 40 Colon Cancer Other none Coronary Artery Disease Other none Diabetes Other none Social History Tobacco Use Smoking status: Never Smokeless tobacco: Never Tobacco comments: Goes by Willem [employer] Use Vaping status: Never Used Substance Use Topics Alcohol use: No Drug use: No Current Outpatient Medications Medication Sig traZODone (DESYREL) 50 mg tablet Take 1 tablet by mouth daily at bedtime. methocarbamol (ROBAXIN) 500 mg tablet Take 1 tablet by mouth three times a day as needed. gabapentin (NEURONTIN) 100 mg capsule Take 1 capsule by mouth three times a day as needed for up to90 days. losartan (COZAAR) 25 mg tablet Take 1 tablet by mouth once daily. memantine (NAMENDA) 10 mg tablet Take 1 tablet by mouth two times a day. FLUoxetine (PROZAC) 40 mg capsule Take 1 capsule by mouth once daily. FLUoxetine (PROZAC) 20 mg capsule Take 1 capsule by mouth once daily. Take along with 40 mg pill for a total of 60 mg daily busPIRone (BUSPAR) 10 mg tablet Take 1 tablet by mouth three times a day. ondansetron (ZOFRAN) 4 mg tablet Take 4 mg by mouth every 8 hours as needed for nausea/vomiting. pantoprazole DR (PROTONIX) 40 mg tablet Take 40 mg by mouth every 12 hours. (Patient not taking: Reported on 10/25/2024) conjugated estrogens (PREMARIN) vaginal cream Use 1 g vaginally two times a week. multivitamin (MULTIPLE VITAMINS) tablet Take by mouth. loratadine (CLARITIN) 10 mg tablet Take by mouth. acetaminophen (TYLENOL EXTRA STRENGTH) 500 mg tablet Take 2 tablets by mouth every 6 hours as needed for pain. MELATONIN ORAL Take 6 mg by mouth daily at bedtime. DAILY MULTIVITAMIN TAB Take one(1) tablet daily. No current facility-administered medications for this visit. Allergies As of Date: 10/25/2024 (No Known Allergies) Fully Assessed 10/25/2024 REVIEW OF SYSTEMS SENSITIVE EXAM: The sensitive examination was discussed with the Patient or Patient's Authorized Liaison Inspection Laboratory Assistant. As applicable, any other physician, advance practice provider, medical student, or other health professional student that will be observing or involved in the sensitive examination for educational or training purposes was discussed with the Patient or Authorized Liaison Inspection Laboratory Assistant. The Patient or Authorized Liaison Inspection Laboratory Assistant has agreed to proceed with the sensitive examination. (Sensitive examination includes inspection and/or palpation of the breasts, pelvis, prostate and anorectal regions). EXAM: BP 158/90 Wt 138 lb (62.6kg) GENERAL: pleasant, female in no apparent distress HEENT: Normocephalic and atraumatic ABDOMEN: soft, non-tender, and no masses PELVIC: external genitalia normal, normal Bartholin's glands, urethra, [place]'s glands, no vulvar lesions, no cervical lesions, physiologic discharge present, normal appearing perineal body and perianal region, cystocele grade 1 BIMANUAL: uterus normal size, shape and consistency, no adnexal masses, and non-tender EXTREMITIES: normal ASSESSMENT AND PLAN: Assessment & Plan Cystocele with prolapse Discussed with the patient if she is asymptomatic able to urinate not having any pelvic pressure can leave the pessary out at this time. If she experiences any of the symptoms as discussed with her we can replace the pessary. Patient and were both understanding and agreed to plan of care. I spent a total of 20 minutes on the date of the service which included preparing to see the patient, [id number] patient care, completing clinical documentation, obtaining and/or reviewing separately obtained history, and performing a medically appropriate examination. Herman Almanzar MD documented in this encounterJ[facility] Telephone encounter Note * Telephone Encounter - Robyn Phipps RN - 09/30/2024 11:07 AM EST Patient's called to r/s her pessary f/u appointment today. Today is not a good day with shaunementia, he said. She fell 3 times in a day several weeks ago on a Friday and by that herpessary came out. Patient is voiding without issue. R/S for 10/25 per 's request. Advised to call if would like seen sooner. DOMINIQUEI only Robyn Phipps RN [facility]02-20-2025 Miscellaneous Notes* Telephone Encounter - Robyn Phipps RN - 09/30/2024 11:07 AM EST Patient's called to r/s her pessary f/u appointment today. Today is not a good day with herdementia, he said. She fell 3 times in a day several weeks ago on a Friday and by that herpessary came out. Patient is voiding without issue. R/S for 10/25 per 's request. Advised to call if would like seen sooner. DOMINIQUEI daisy Phipps RN documented in this encounterJ.W. [facility]01-[facility] Telephone encounter Note * Telephone Encounter - Gustavo Marin MA - 08/17/2024 4:57 PM EST Call to pt's spouse, [place]. Notified him of results below, verbalized understanding. Gustavo Marin MA [facility]01-07-2025 Miscellaneous Notes* Telephone Encounter - Gustavo Marin MA - 08/17/2024 4:57 PM EST Call to pt's spouse, [place]. Notified him of results below, verbalized understanding. Gustavo Marin MA * Telephone Encounter - Citlaly العراقي MD - 08/17/2024 4:49 PM EST Please notify patient that her urine looks OK; does not look like infection Citlaly العراقي MD documented in this encounterJ.[facility]. [facility]01-[facility] Telephone encounter Note * Telephone Encounter - Citlaly العراقي MD - 08/17/2024 4:49 PM EST Please notify patient that her urine looks OK; does not look like infection Citlaly العراقي MD [facility]01-03-2025 NoteHNO ID: [id number] Author: ?, ?, ? Service: ? Author Type: ? Type: Progress Notes Filed: 08/13/2024 09:38 Note Text: POPULATION HEALTH NAVIGATION OUTREACH Action/[facility] Support: Called pt to schedule an appt in Pain Management. Spoke w/ pt's , Will call back later to schedule appt. Reason for Outreach Care Gap/HCC or Scheduling Wellness Visits Care Gaps due: N/A Patient Contacted: Spoke to patient/parent/or legal guardian Patient identified by name and : No Navigation Signature: Hilda Steel August 13, 2024 9:38 [facility]01-03-2025 History of Present illness Narrative* Hilda Steel - 08/13/2024 9:38 AM EST POPULATION HEALTH NAVIGATION OUTREACH Action/[facility] Support: Called pt to schedule an appt in Pain Management. Spoke w/ pt's , Willcall back later to schedule appt. Reason for Outreach Care Gap/HCC or Scheduling Wellness Visits Care Gaps due: N/A Patient Contacted: Spoke to patient/parent/or legal guardian Patient identified by name and : No Navigation Signature: Hlida Steel August 13, 2024 9:38 AM documented in this encounterJ.W. [facility] NotePatient Outreach (NETNAV) WILLEM EVANS ([id number]) 1945 F Date Time Provider Department 08/13/24 NO PCP BARBRA During your visit today, we recorded the following information about you: Ananda Hilda Rajan 08/13/2024 9:38 AM Signed POPULATION HEALTH NAVIGATION OUTREACH Action/[facility] Support: Called pt to schedule an appt in Pain Management. Spoke w/ pt's , Will call back later to schedule appt. Reason for Outreach Care Gap/HCC or Scheduling Wellness Visits Care Gaps due: N/A Patient Contacted: Spoke to patient/parent/or legal guardian Patient identified by name and : No Navigation Signature: Hilda Steel August 13, 2024 9:38 AM Allergies As of Date: 08/13/2024 (No Known Allergies) Date Reviewed: 08/12/2024 Reviewed by: Ani Núñez MA - Fully Assessed Prescriptions as of 08/13/2024 - traZODone (DESYREL) 50 mg tablet Take 1 tablet by mouth daily at bedtime. - methocarbamol (ROBAXIN) 500 mg tablet Take 1 tablet by mouth three times a day as needed. - traMADol (ULTRAM) 50 mg tablet Take 1 tablet by mouth four times a day as needed for pain for up to 15 days. - gabapentin (NEURONTIN) 100 mg capsule Take 1 capsule by mouth three times a day as needed for up to 90 days. - losartan (COZAAR) 25 mg tablet Take 1 tablet by mouth once daily. - memantine (NAMENDA) 10 mg tablet Take 1 tablet by mouth two times a day. - FLUoxetine (PROZAC) 40 mg capsule Take 1 capsule by mouth once daily. - FLUoxetine (PROZAC) 20 mg capsule Take 1 capsule by mouth once daily. Take along with 40 mg pill for a total of 60 mg daily - busPIRone (BUSPAR) 10 mg tablet Take 1 tablet by mouth three times a day. - ondansetron (ZOFRAN) 4 mg tablet Take 4 mg by mouth every 8 hours as needed for nausea/vomiting. - pantoprazole DR (PROTONIX) 40 mg tablet Take 40 mg by mouth every 12 hours. - conjugated estrogens (PREMARIN) vaginal cream Use 1 g vaginally two times a week. - multivitamin (MULTIPLE VITAMINS) tablet Take by mouth. - loratadine (CLARITIN) 10 mg tablet Take by mouth. - acetaminophen (TYLENOL EXTRA STRENGTH) 500 mg tablet Take 2 tablets by mouth every 6 hours as needed for pain. - MELATONIN ORAL Take 6 mg by mouth daily at bedtime. - DAILY MULTIVITAMIN TAB Take one(1) tablet daily. Meds Comments as of 06/22/2019: 3 mg Melatonin at bedtime Imodium prn Problem List As Of Date 08/13/2024 Noted Resolved Major depressive disorder, recurrent, in full r*09/01/2006 OSTEOPOROSIS NOS [M81.0] 09/01/2006 GENERALIZED ANXIETY DIS [F41.1] 09/01/2006 JOINT PAIN-SHLDER [M25.519] 09/01/2006 IRRITABLE COLON [K58.9] ALLERGIC RHINITIS NOS [J30.9] MIXED HYPERLIPIDEMIA [E78.2] 10/05/2007 OBESITY NOS [E66.9] 10/05/2007 CAROTID ART OCCL-NO INFARCT [I65.29] 11/29/2008 Acute midline low back pain without sciatica [M*11/07/2021 03/14/2022 Dementia without behavioral disturbance (HCC) [*10/31/2023 Encounter Status:Closed by HILDA STEEL on 08/13/24[facility]01-02-2025 Instructions* Patient Instructions* Ani Núñez MA - 08/12/2024 4:40 PM EST Recommend taking the Miralax or stool softener while using pain medications to keep her from getting backed up. documented in this encounterJ.W. [facility]01-02-[facility] History of Present illness Narrative* Citlaly العراقي MD - 08/12/2024 4:20 PM EST Chief Complaint Patient presents with: Follow Up Back Pain HPI Willem Evans is a 78 year old female who presents here today for a 4 month follow up. Daughter here with patient and pt . Daughter states that they are considering moving both ptand pt into an assisted living facility. Pt here today with her spouse for a 4 month follow up. Was originally scheduled with Yun Jackson CNP on 08/25/23. Is supposed to have blood work completed, labs placed for her appt. Fall risk. Has a hard time maneuvering around, getting up and down. She uses a walker at home. Has a shuffle gait. Hx of IBS. Takes Protonix 40 mg but pt has not been taking it, seems to be doing ok without it. Haschronic constipation issues, doesn't use the miralax or Senna regularly. She has been having urinary incontinence.pt has never had any urinary incontinence before. No urinary pain, no increased confusion. Has seen GI. HTN: Seen in office on 07/16/24 for elevated BP and started on Losartan 25 mg once daily at that visit. Pt over the past several months and visits has had several elevated BP readings. Pt denies any chest pain, sob or dizziness. Has wrist monitor at home, but doesn't really work well on patient. YEIMI/Depression/Insomnia: Chronic but stable on current regimen of Prozac 40 mg + 20 mg once daily and Buspar 10 mg 1 tab po TID. Takes Trazodone 50 mg 1 tab at bedtime for sleep. Dementia: Follows with Neurology for dementia. Overall stable at present time, but does have occasional bad days which has 2-3 day segments of increased agitation and worsened memory. Does a lot of cognitive activities at home such as puzzles and word searches. Pt on current regimen of Namenda 10 mg twice daily. Pain: Chronic ongoing back pain. Has had intermittent issues with her back, requiring courses of opiate medication. Was seen in March for a compression fx. Pt has had several falls over the past year. Recently Spouse contacted the office on 07/27/24, updating office that pt fell 2 days prior and has since had back pain. Was requesting something to help the ease the pain. Pt was given Tramadol. Nothing seems to help much with the pain. She uses Flexeril today but that hasn't helped. Has a lot of pain on palpation so no massaging. She denies any pain going into the legs. This episode has worsened in the last few weeks. She has had 3 falls in the last few weeks. Has never been evaluated by pain management. Rated pain 10/10, ache when sitting, sharp pains with movement, she gets some spasms and muscle tightness. Percocet really caused her constipation to worsen. Pre-DM: Monitoring A1c through routine labs. Pt currently on no medication at this time. Past medical history, appointments, medications, allergies reviewed. Previous Medical History PAST MEDICAL HISTORY Diagnosis Date Allergic rhinitis, cause unspecified Generalized anxiety disorder with social component Irritable bowel syndrome mainly constipation Osteoporosis, unspecified per prior DEXA times 2 Overweight(278.02) Previous Surgical History PAST SURGICAL HISTORY Procedure Laterality Date COLONOSCOPY [address] [facility], NORMAL LIG/TRNSXJ FLP TUBE ABDL/VAG APPR UNI/BI Tubal ligation she was 36 years old Family History FAMILY HISTORY Problem Relation Age of Onset Stroke Father at 85, healthy til then Breast Cancer Maternal Aunt roughly 40 Colon Cancer Other none Coronary Artery Disease Other none Diabetes Other none Patient Allergies ALLERGIES No Known Allergies Current Medications Current Outpatient Medications on File Prior to Visit Medication Sig losartan (COZAAR) 25 mg tablet Take 1 tablet by mouth once daily. memantine (NAMENDA) 10 mg tablet Take 1 tablet by mouth two times a day. FLUoxetine (PROZAC) 40 mg capsule Take 1 capsule by mouth once daily. FLUoxetine (PROZAC) 20 mg capsule Take 1 capsule by mouth once daily. Take along with 40 mg pill for a total of 60 mg daily busPIRone (BUSPAR) 10 mg tablet Take 1 tablet by mouth three times a day. traZODone (DESYREL) 50 mg tablet Take 1 tablet by mouth daily at bedtime. ondansetron (ZOFRAN) 4 mg tablet Take 4 mg by mouth every 8 hours as needed for nausea/vomiting. pantoprazole DR (PROTONIX) 40 mg tablet Take 40 mg by mouth every 12 hours. conjugated estrogens (PREMARIN) vaginal cream Use 1 g vaginally two times a week. multivitamin (MULTIPLE VITAMINS) tablet Take by mouth. loratadine (CLARITIN) 10 mg tablet Take by mouth. acetaminophen (TYLENOL EXTRA STRENGTH) 500 mg tablet Take 2 tablets by mouth every 6 hours as needed for pain. MELATONIN ORAL Take 6 mg by mouth daily at bedtime. DAILY MULTIVITAMIN TAB Take one(1) tablet daily. No current facility-administered medications on file prior to visit. Social History Social History Tobacco Use Smoking status: Never Smokeless tobacco: Never Tobacco comments: Goes by Willem Vaping Use Vaping status: Never Used Substance Use Topics Alcohol use: No Drug use: No EXAM: BP 122/74 Pulse 64 Resp 16 Wt 68.5 kg (151 lb) General Appearance: Well appearing, alert, in no acute distress, well-hydrated, well nourished., Wheelchair, and Walker. Back:diffuse tenderness lumbar spine Lungs: Lungs clear to auscultation. No wheezing, rhonchi, rales.. Heart: RRR without murmur, gallop, or rubs. No ectopy. Health Maintenance List Bone Density Screening due on 11/24/2010 Covid-19 Vaccine(2023- season) due on 04/11/2024 Advance Directive Discussion due on 08/11/2024 DTaP,Tdap,Td Vaccine(1 - Tdap) due on 10/30/2024 RSV Vaccine(1 - 1-dose 75+ series) due on 10/30/2024 Shingrix Vaccine(1 of 2) due on 10/30/2024 Diabetes Screening due on 02/01/2027 Influenza Vaccine Completed Hepatitis C Screening Completed Pneumococcal Vaccine: 50+ Completed Mammogram Screening Discontinued Colorectal Cancer Screening Discontinued Data reviewed Labs ordered, not yet completed. Pt was unable to provide a urine sample today, will have it done at lab when she gets blood work done. ASSESSMENT/PLAN: 1. Major depressive disorder, recurrent, in full remission (HCC) - ICD9: 296.36, ICD10: F33.42 (primary diagnosis) Controlled Continue current medications. 2. Chronic insomnia - ICD9: 780.52, ICD10: F51.04 Controlled Continue current medications. - TRAZODONE 50 MG TABLET 3. Stress incontinence of urine - ICD9: [id number], ICD10: N39.3 Unable to provider urine today, will do a the lab - UA DIP, URINE (POC) 4. Mixed hyperlipidemia - ICD9: 272.2, ICD10: E78.2 - Control undetermined, due for labs - Continue current medications - Counseled on healthy diet and regular exercise - Discussed need for and benefit of weight loss. BMI 25.92 kg/(m^2) 5. Irritable bowel syndrome, unspecified type - ICD9: 564.1, ICD10: K58.9 Continue with Miralax 6. Generalized anxiety disorder - ICD9: 300.02, ICD10: F41.1 Controlled Continue current medications. 7. Dementia without behavioral disturbance (HCC) - ICD9: 294.20, ICD10: F03.90 Continue with Nuero 8. Fall, initial encounter - ICD9: E888.9, ICD10: W19.XXXA Recommend continued use of walker 9. Chronic midline low back pain without sciatica - ICD9: 724.2, 338.29, ICD10: M54.50, G89.29 Tramadol rx given Gabapentin 100 mg once daily Robaxin given to use Consult pain Management Follow up as needed. Will notify of lab results. I agree with the Chief Complaint, ROS, and Past Histories independently gathered by the clinical user support analyst and the remaining scribed note accurately describes my personal service to the patient. Medical Decision Making: Problems: Moderate: 1+ chronic illnesses with change and 2+ stable chronic illnesses Data: Unique test(s) ordered: 1 Risk: Moderate: Drug management Medical Decision Making Level: 4 - Moderate Citlaly العراقي MD The documentation for this note was completed by Ani Núñez MA acting as scribe for Citlaly العراقي MD. August 12, 2024 4:37 PM. Ani Núñez MA documented in this encounterJ.W. [facility]01-02-2025 NoteHNO ID: [id number] Author: CITLALY العراقي MD Service: ? Author Type: Physician Type: Progress Notes Filed: 08/12/2024 16:52 Note Text: Chief Complaint Patient presents with: Follow Up Back Pain HPI Willem Evans is a 78 year old female who presents here today for a 4 month follow up. Daughter here with patient and pt . Daughter states that they are considering moving both pt and pt into an assisted living facility. Pt here today with her spouse for a 4 month follow up. Was originally scheduled with Yun Jackson CNP on 08/25/23. Is supposed to have blood work completed, labs placed for her appt. Fall risk. Has a hard time maneuvering around, getting up and down. She uses a walker at home. Has a shuffle gait. Hx of IBS. Takes Protonix 40 mg but pt has not been taking it, seems to be doing ok without it. Has chronic constipation issues, doesn't use the miralax or Senna regularly. She has been having urinary incontinence.pt has never had any urinary incontinence before. No urinary pain, no increased confusion. Has seen GI. HTN: Seen in office on 07/16/24 for elevated BP and started on Losartan 25 mg once daily at that visit. Pt over the past several months and visits has had several elevated BP readings. Pt denies any chest pain, sob or dizziness. Has wrist monitor at home, but doesn't really work well on patient. YEIMI/Depression/Insomnia: Chronic but stable on current regimen of Prozac 40 mg + 20 mg once daily and Buspar 10 mg 1 tab po TID. Takes Trazodone 50 mg 1 tab at bedtime for sleep. Dementia: Follows with Neurology for dementia. Overall stable at present time, but does have occasional bad days which has 2-3 day segments of increased agitation and worsened memory. Does a lot of cognitive activities at home such as puzzles and word searches. Pt on current regimen of Namenda 10 mg twice daily. Pain: Chronic ongoing back pain. Has had intermittent issues with her back, requiring courses of opiate medication. Was seen in March for a compression fx. Pt has had several falls over the past year. Recently Spouse contacted the office on 07/27/24, updating office that pt fell 2 days prior and has since had back pain. Was requesting something to help the ease the pain. Pt was given Tramadol. Nothing seems to help much with the pain. She uses Flexeril today but that hasn't helped. Has a lot of pain on palpation so no massaging. She denies any pain going into the legs. This episode has worsened in the last few weeks. She has had 3 falls in the last few weeks. Has never been evaluated by pain management. Rated pain 10/10, ache when sitting, sharp pains with movement, she gets some spasms and muscle tightness. Percocet really caused her constipation to worsen. Pre-DM: Monitoring A1c through routine labs. Pt currently on no medication at this time. Past medical history, appointments, medications, allergies reviewed. Previous Medical History PAST MEDICAL HISTORY Diagnosis Date Allergic rhinitis, cause unspecified Generalized anxiety disorder with social component Irritable bowel syndrome mainly constipation Osteoporosis, unspecified per prior DEXA times 2 Overweight(278.02) Previous Surgical History PAST SURGICAL HISTORY Procedure Laterality Date COLONOSCOPY [address] [facility], NORMAL LIG/TRNSXJ FLP TUBE ABDL/VAG APPR UNI/BI Tubal ligation she was 36 years old Family History FAMILY HISTORY Problem Relation Age of Onset Stroke Father at 85, healthy til then Breast Cancer Maternal Aunt roughly 40 Colon Cancer Other none Coronary Artery Disease Other none Diabetes Other none Patient Allergies ALLERGIES No Known Allergies Current Medications Current Outpatient Medications on File Prior to Visit Medication Sig losartan (COZAAR) 25 mg tablet Take 1 tablet by mouth once daily. memantine (NAMENDA) 10 mg tablet Take 1 tablet by mouth two times a day. FLUoxetine (PROZAC) 40 mg capsule Take 1 capsule by mouth once daily. FLUoxetine (PROZAC) 20 mg capsule Take 1 capsule by mouth once daily. Take along with 40 mg pill for a total of 60 mg daily busPIRone (BUSPAR) 10 mg tablet Take 1 tablet by mouth three times a day. traZODone (DESYREL) 50 mg tablet Take 1 tablet by mouth daily at bedtime. ondansetron (ZOFRAN) 4 mg tablet Take 4 mg by mouth every 8 hours as needed for nausea/vomiting. pantoprazole DR (PROTONIX) 40 mg tablet Take 40 mg by mouth every 12 hours. conjugated estrogens (PREMARIN) vaginal cream Use 1 g vaginally two times a week. multivitamin (MULTIPLE VITAMINS) tablet Take by mouth. loratadine (CLARITIN) 10 mg tablet Take by mouth. acetaminophen (TYLENOL EXTRA STRENGTH) 500 mg tablet Take 2 tablets by mouth every 6 hours as needed for pain. MELATONIN ORAL Take 6 mg by mouth daily at bedtime. DAILY MULTIVITAMIN TAB Take one(1) tablet daily. No current facility-administered medications on (more content not included)... [facility]12-27-2024 Telephone encounter Note* Telephone Encounter - Vijaya Diaz - 08/06/2024 11:15 AM EST Patient is asking for this to please be expedited today. Patient has been identified by name and date of : Yes Patient phones for refill(s): Requested Prescriptions Pending Prescriptions Disp Refills FLUoxetine (PROZAC) 40 mg capsule 90 capsule 3 Sig: Take 1 capsule by mouth once daily. Date of last office visit in primary care: 07/16/2024 Date of next office visit in primary care: 2024 Please advise. Thank you. Vijaya Diaz. [facility]12-27-20[facility] Miscellaneous Notes* Telephone Encounter - Vijaya Diaz - 08/06/2024 11:15 AM EST Patient is asking for this to please be expedited today. Patient has been identified by name and date of : Yes Patient phones for refill(s): Requested Prescriptions Pending Prescriptions Disp Refills FLUoxetine (PROZAC) 40 mg capsule 90 capsule 3 Sig: Take 1 capsule by mouth once daily. Date of last office visit in primary care: 07/16/2024 Date of next office visit in primary care: 2024 Please advise. Thank you. Vijaya Diaz. documented in this encounterJ.W. Ruby [facility]12-17-2024 Telephone encounter Note * Telephone Encounter - Gustavo Marin MA - 07/27/2024 12:42 PM EST Call to pt's spouse, [place] and notified him that Rx has been sent in as requested. [place] verbalized understanding. Gustavo Marin MA [facility]12-17-[facility] Miscellaneous Notes* Telephone Encounter - Gustavo Marin MA - 07/27/2024 12:42 PM EST Call to pt's spouse, [place] and notified him that Rx has been sent in as requested. [place] verbalized understanding. Gustavo Marin MA * Telephone Encounter - Citlaly العراقي MD - 07/27/2024 11:26 AM EST Ok for a few tramadol as ordered Citlaly العراقي MD * Telephone Encounter - Sarah Cheung - 07/27/2024 8:43 AM EST Willem has her spouse [place] is calling Citlaly العراقي MD today with concern regarding patient took a fall this past Friday evening 07/25/[address] to bed. Patient fell on the right side and bruised up her right arm. At this time the middle of the back is hurting and sore from that fall, also bruised her chin. Spouse is requesting Tramadol if provider agrees. The [facility] Please call spouse Virginia to discuss at [phone] Patient has been identified by name and birthdate. Duration of symptoms: 3 days Person calling: spouse: [place] Call patient spouse at: [phone] Was an appointment scheduled: No Closing statement: Symptom Call: Thank you for [facility], your call is very important. A nurse will call in approximately 2-4 hours during business hours. If this is an emergency, please contact 911. Sarah Asif documented in this encounterJ.W. Ruby [facility] Hospital12-17-2024 Telephone encounter Note * Telephone Encounter - Citlaly العراقي MD - 07/27/2024 11:26 AM EST Ok for a few tramadol as ordered Citlaly العراقي MD [facility]12-[facility] Telephone encounter Note* Telephone Encounter - Sarah Cheung - 07/27/2024 8:43 AM EST Willem has her spouse [place] is calling Citlaly العراقي MD today with concern regarding patient took a fall this past Friday evening 07/25/[address] to bed. Patient fell on the right side and bruised up her right arm. At this time the middle of the back is hurting and sore from that fall, also bruised her chin. Spouse is requesting Tramadol if provider agrees. The [facility] Please call spouse Virginia to discuss at [phone] Patient has been identified by name and birthdate. Duration of symptoms: 3 days Person calling: spouse: [place] Call patient spouse at: [phone] Was an appointment scheduled: No Closing statement: Symptom Call: Thank you for calling [facility], your call is very important. A nurse will call in approximately 2-4 hours during business hours. If this is an emergency, please contact 911. Sarah Asif [facility]12-06-2024 Instructions* Patient Instructions* Gustavo Marin MA - 07/16/2024 2:19 PM EST Start Losartan 25 mg once daily in the morning. This has been sent to [facility]. Keep appt with Yun in August as scheduled. documented in this encounterJ.W. Ruby [facility] Hospital12-06-2024 History of Present illness Narrative* Ciltaly العراقي MD - 07/16/2024 2:00 PM EST Chief Complaint Patient presents with: Follow Up: BP HPI Willem Evans is a 78 year old female who presents here today for blood pressure follow up. Here today with spouse, [place]. Pt saw Yun Jackson in Apr for elevated BP. She was not started on any medications at that time.Blood pressure at that visit was 142/78. Today patient denies any chest pains, dizziness, or shortness of breath. They do have a wrist cuff at home, but doesn't seem to work well on patient, so have not been able to really check. Spouse notes that she's had several elevated readings over her last few visits. Currently on no blood pressure medications. Spouse asking if she needs to take a low doseAspirin. Following with neuro for dementia. At this time she has stablized. Was recently seen by Neuro on 07/14/24 and pt's BP was 176/90 during OV. They recommended pt follow up with Primary Care and scheduled visit today. Spouse states that patient has suffered from 3 falls, which has taken time to recover from over thepast two years. Has suffered ongoing back issues causing weakness. At this time, she's overall recovered per patient spouse. Past medical history, appointments, medications, allergies reviewed. Previous Medical History PAST MEDICAL HISTORY Diagnosis Date Allergic rhinitis, cause unspecified Generalized anxiety disorder with social component Irritable bowel syndrome mainly constipation Osteoporosis, unspecified per prior DEXA times 2 Overweight(278.02) Previous Surgical History PAST SURGICAL HISTORY Procedure Laterality Date COLONOSCOPY [address] [facility], NORMAL LIG/TRNSXJ FLP TUBE ABDL/VAG APPR UNI/BI Tubal ligation she was 36 years old Family History FAMILY HISTORY Problem Relation Age of Onset Stroke Father at 85, healthy til then Breast Cancer Maternal Aunt roughly 40 Colon Cancer Other none Coronary Artery Disease Other none Diabetes Other none Patient Allergies ALLERGIES No Known Allergies Current Medications Current Outpatient Medications on File Prior to Visit Medication Sig memantine (NAMENDA) 10 mg tablet Take 1 tablet by mouth two times a day. FLUoxetine (PROZAC) 40 mg capsule Take 1 capsule by mouth once daily. FLUoxetine (PROZAC) 20 mg capsule Take 1 capsule by mouth once daily. Take along with 40 mg pill for a total of 60 mg daily busPIRone (BUSPAR) 10 mg tablet Take 1 tablet by mouth three times a day. traZODone (DESYREL) 50 mg tablet Take 1 tablet by mouth daily at bedtime. ondansetron (ZOFRAN) 4 mg tablet Take 4 mg by mouth every 8 hours as needed for nausea/vomiting. pantoprazole DR (PROTONIX) 40 mg tablet Take 40 mg by mouth every 12 hours. conjugated estrogens (PREMARIN) vaginal cream Use 1 g vaginally two times a week. multivitamin (MULTIPLE VITAMINS) tablet Take by mouth. loratadine (CLARITIN) 10 mg tablet Take by mouth. acetaminophen (TYLENOL EXTRA STRENGTH) 500 mg tablet Take 2 tablets by mouth every 6 hours as needed for pain. MELATONIN ORAL Take 6 mg by mouth daily at bedtime. DAILY MULTIVITAMIN TAB Take one(1) tablet daily. No current facility-administered medications on file prior to visit. Social History Social History Tobacco Use Smoking status: Never Smokeless tobacco: Never Tobacco comments: Goes by Willem Vaping Use Vaping status: Never Used Substance Use Topics Alcohol use: No Drug use: No EXAM: BP 148/72 Pulse 82 Resp 18 Wt 68.8 kg (151 lb 10.8 oz) General Appearance: Well appearing, alert, in no acute distress, well-hydrated, well nourished.. Lungs: Lungs clear to auscultation. No wheezing, rhonchi, rales.. Heart: RRR without murmur, gallop, or rubs. No ectopy. Health Maintenance List Bone Density Screening due on 11/24/2010 Covid-19 Vaccine( - 2023- season) due on 04/11/2024 DTaP,Tdap,Td Vaccine(1 - Tdap) due on 10/30/2024 RSV Vaccine(1 - 1-dose 75+ series) due on 10/30/2024 Shingrix Vaccine(1 of 2) due on 10/30/2024 Diabetes Screening due on 02/01/2027 Influenza Vaccine Completed Advance Directive Discussion Completed Hepatitis C Screening Completed Pneumococcal Vaccine: 65+ Completed Mammogram Screening Discontinued Colorectal Cancer Screening Discontinued Data reviewed None ASSESSMENT/PLAN: 1. Hypertension, unspecified type - ICD9: 401.9, ICD10: I10 - Newly dx. - Elevated in office today - Start Losartan 25 mg once daily - Recommend home blood pressure monitoring, to bring results to next visit - Encouraged sodium restriction, DASH or Mediterranean diet - Recommend regular aerobic exercise Follow up with Yun in August as scheduled. Pt spouse asking after appt in August if appt can be scheduled back in this office to be seen. Notified to update Yun to schedule 3-4 mo f/u with this office. I agree with the Chief Complaint, ROS, and Past Histories independently gathered by the clinical user support analyst and the remaining scribed note accurately describes my personal service to the patient. Medical Decision Making: Problems: Moderate: 1+ chronic illnesses with change Risk: Moderate: Drug management Medical Decision Making Level: 4 - Moderate Citlaly العراقي MD The documentation for this note was completed by Gustavo Marin MA acting as scribe for Citlaly العراقي MD. July 16, 2024 2:08 PM. Gustavo Marin MA [place] [address]-06-2024 NoteHNO ID: [id number] Author: CITLALY العراقي MD Service: ? Author Type: Physician Type: Progress Notes Filed: 07/16/2024 14:21 Note Text: Chief Complaint Patient presents with: Follow Up: BP HPI Willem Evans is a 78 year old female who presents here today for blood pressure follow up. Here today with spouse, [place]. Pt saw Yun Jackson in Apr for elevated BP. She was not started on any medications at that time. Blood pressure at that visit was 142/78. Today patient denies any chest pains, dizziness, or shortness of breath. They do have a wrist cuff at home, but doesn't seem to work well on patient, so have not been able to really check. Spouse notes that she's had several elevated readings over her last few visits. Currently on no blood pressure medications. Spouse asking if she needs to take a low dose Aspirin. Following with neuro for dementia. At this time she has stablized. Was recently seen by Neuro on 07/14/24 and pt's BP was 176/90 during OV. They recommended pt follow up with Primary Care and scheduled visit today. Spouse states that patient has suffered from 3 falls, which has taken time to recover from over the past two years. Has suffered ongoing back issues causing weakness. At this time, she's overall recovered per patient spouse. Past medical history, appointments, medications, allergies reviewed. Previous Medical History PAST MEDICAL HISTORY Diagnosis Date Allergic rhinitis, cause unspecified Generalized anxiety disorder with social component Irritable bowel syndrome mainly constipation Osteoporosis, unspecified per prior DEXA times 2 Overweight(278.02) Previous Surgical History PAST SURGICAL HISTORY Procedure Laterality Date COLONOSCOPY [address] ABEL, [facility], NORMAL LIG/TRNSXJ FLP TUBE ABDL/VAG APPR UNI/BI Tubal ligation she was 36 years old Family History FAMILY HISTORY Problem Relation Age of Onset Stroke Father at 85, healthy til then Breast Cancer Maternal Aunt roughly 40 Colon Cancer Other none Coronary Artery Disease Other none Diabetes Other none Patient Allergies ALLERGIES No Known Allergies Current Medications Current Outpatient Medications on File Prior to Visit Medication Sig memantine (NAMENDA) 10 mg tablet Take 1 tablet by mouth two times a day. FLUoxetine (PROZAC) 40 mg capsule Take 1 capsule by mouth once daily. FLUoxetine (PROZAC) 20 mg capsule Take 1 capsule by mouth once daily. Take along with 40 mg pill for a total of 60 mg daily busPIRone (BUSPAR) 10 mg tablet Take 1 tablet by mouth three times a day. traZODone (DESYREL) 50 mg tablet Take 1 tablet by mouth daily at bedtime. ondansetron (ZOFRAN) 4 mg tablet Take 4 mg by mouth every 8 hours as needed for nausea/vomiting. pantoprazole DR (PROTONIX) 40 mg tablet Take 40 mg by mouth every 12 hours. conjugated estrogens (PREMARIN) vaginal cream Use 1 g vaginally two times a week. multivitamin (MULTIPLE VITAMINS) tablet Take by mouth. loratadine (CLARITIN) 10 mg tablet Take by mouth. acetaminophen (TYLENOL EXTRA STRENGTH) 500 mg tablet Take 2 tablets by mouth every 6 hours as needed for pain. MELATONIN ORAL Take 6 mg by mouth daily at bedtime. DAILY MULTIVITAMIN TAB Take one(1) tablet daily. No current facility-administered medications on file prior to visit. Social History Social History Tobacco Use Smoking status: Never Smokeless tobacco: Never Tobacco comments: Goes by Willem [employer] Use Vaping status: Never Used Substance Use Topics Alcohol use: No Drug use: No EXAM: BP 148/72 Pulse 82 Resp 18 Wt 68.8 kg (151 lb 10.8 oz) General Appearance: Well appearing, alert, in no acute distress, well-hydrated, well nourished.. Lungs: Lungs clear to auscultation. No wheezing, rhonchi, rales.. Heart: RRR without murmur, gallop, or rubs. No ectopy. Health Maintenance List Bone Density Screening due on 11/24/2010 Covid-19 Vaccine(2023- season) due on 04/11/2024 DTaP,Tdap,Td Vaccine(1 - Tdap) due on 10/30/2024 RSV Vaccine(1 - 1-dose 75+ series) due on 10/30/2024 Shingrix Vaccine(1 of 2) due on 10/30/2024 Diabetes Screening due on 02/01/2027 Influenza Vaccine Completed Advance Directive Discussion Completed Hepatitis C Screening Completed Pneumococcal Vaccine: 65+ Completed Mammogram Screening Discontinued Colorectal Cancer Screening Discontinued Data reviewed None ASSESSMENT/PLAN: 1. Hypertension, unspecified type - ICD9: 401.9, ICD10: I10 - Newly dx. - Elevated in office today - Start Losartan 25 mg once daily - Recommend home blood pressure monitoring, to bring results to next visit - Encouraged sodium restriction, DASH or Mediterranean diet - Recommend regular aerobic exercise Follow up with Yun in August as scheduled. Pt spouse asking after appt in August if appt can be scheduled back in this office to be seen. Notified to update Yun to schedule 3-4 mo f/u with this (more content not included)... [facility]12-04-2024 Instructions* Patient Instructions* Rosemarie Spears PA-C - 07/14/2024 1:24 PM EST Follow up with primary care for blood pressure on Friday Stay on namenda 10mg twice daily Increase physical activity and cognitive activity Follow up in 5 months [facility] NoteHNO ID: [id number] Author: ROSEMARIE SPEARS PA-C Service: ? Author Type: Physician Engineer/Conductor Type: Progress Notes Filed: 07/14/2024 14:10 Note Text: [facility] Name: Willem Evans Age: [age] year old Gender: female Primary Care Provider: Citlaly العراقي MD 07/14/2024 - General Neurology, Rosemarie Spears PA-C ASSESSMENT ASSESSMENT/PLAN: 1. Dementia without behavioral disturbance, psychotic disturbance, mood disturbance, or anxiety, unspecified dementia severity, unspecified dementia type (HCC) - ICD9: 294.20, ICD10: F03.90 (primary diagnosis) 2. Memory change - ICD9: 780.93, ICD10: R41.3 Patient presents with her today for memory loss, dementia follow-up. Previous MRI with hippocampal volumes in 1st percentile, noted gradual memory loss likely concerning for neurodegenerative process like Alzheimer's disease. Did try Aricept in the past but noted bradycardia with this. Is currently on Namenda 10 mg twice daily and doing well, no side effects. is primary history provider and notes her memory has been stable, she does have occasional bad days which usually occur in 2 to 3 days segments, but then she will have many good days. During these times she is bit more agitated and has worsened memory, no etiology for when these days occur. Otherwise, no behavioral changes, no wandering, sleep has been stable, appetite and weight are stable. Patient did have 1 slip and fall in the bathroom, states that she was able to slowly bring herself down by holding onto the door with no injuries. got rid of the rug in the bathroom. Patient is not very physically active, discussed this with patient and family about increasing physical activity around the house. Patient does do a lot of cognitive activities at home including puzzles and word searches. No new symptoms today that would warrant additional workup at this time. Will continue with Namenda 10 mg twice daily and encouraged conservative therapy noted above. Patient has been agreeable to treatment plan of care at this time, questions were answered. Patient to follow-up in 5 to 6 months. Rosemarie Spears PA-C This is a 78 year old female followed for dementia Current medication treatment: Namenda 10 mg twice daily Indication for repeat cognitive testing: No Encounter Diagnosis ICD-10-CM 1. Dementia without behavioral disturbance, psychotic disturbance, mood disturbance, or anxiety, unspecified dementia severity, unspecified dementia type (HCC) F03.90 2. Memory change R41.3 Return in about 5 months (around 12/12/2024). Chart, labs,and relevant images reviewed. Chief Complaint:Patient presents with: Recheck: 3 months dementia Chart Review: Last Filed Values Date of Most Recent Assessment and Plan 04/14/24 Specialty General Neurology Assessment ASSESSMENT/PLAN: 1. Dementia without behavioral disturbance, psychotic disturbance, mood disturbance, or anxiety, unspecified dementia severity, unspecified dementia type (HCC) - ICD9: 294.20, ICD10: F03.90 (primary diagnosis) 2. Lacunar infarction (HCC) - ICD9: 434.91, ICD10: I63.81 3. Memory loss - ICD9: 780.93, ICD10: R41.3 4. Memory change - ICD9: 780.93, ICD10: R41.3 Patient with worsening memory since last visit, history primarily provided by . Notes she has been having good and bad days, today is a bad day. Angelina was , previous was . However, original moca ws . Patient with significant hippocampal atrophy on MRI brain concerning for neurodegenerative process, however, also has depression which may be contributing. No new concerns today, she did have a mechanical fall in February sustaining two compression fractures in her back, recovered well from this but notes she was agitated and confused during recovery, attributing this to pain meds. Has since improved. No further falls, walking around the house but not often, very cognitively active. Will continue with namenda 10mg bid and encouraged conservative therapy. Discussed help at home as patient lives solely with her , he notes no signs of burnout, doing well and deferred social work consult. No new symptoms that would warrant additional work up at this time, patient to follow up in 3 months for repeat moca. Patient and agreeable to treatment and plan. Rosemarie Spears PA-C HPI: Last seen on 04/14/24 for dementia. Some worsening memory, concerning for alzheimers. Had mechanical fall, on namenda 10mg bid. Deferred social work. Patient presents with her for follow-up appointment. Has been provides majority of information and history. Notes that patient did have 1 fall since last appointment where she was in the bathroom and she slipped on her slipper and fell down gently, holding onto the door. She did not hit her head. Notes that they got rid of the rug in the bathroom. No other falls. Does note that her mood (more content not included)...[facility]12-04-2024 History of Present illness Narrative* Rosemarie Spears PA-C - 07/14/2024 1:08 PM EST Images from the original note were not included. [facility] Name: Willem Evans Age: [age] year old Gender: female Primary Care Provider: Citlaly العراقي MD 07/14/2024 - General Neurology, Rosemarie Spears PA-C ASSESSMENT ASSESSMENT/PLAN: 1. Dementia without behavioral disturbance, psychotic disturbance, mood disturbance, or anxiety, unspecified dementia severity, unspecified dementia type (HCC) - ICD9: 294.20, ICD10: F03.90 (primary diagnosis) 2. Memory change - ICD9: 780.93, ICD10: R41.3 Patient presents with her today for memory loss, dementia follow-up. Previous MRI with hippocampal volumes in 1st percentile, noted gradual memory loss likely concerning for neurodegenerativeprocess like Alzheimer's disease. Did try Aricept in the past but noted bradycardia with this. Is currently on Namenda 10 mg twice daily and doing well, no side effects. is primary history provider and notes her memory has been stable, she does have occasional bad days which usually occur in 2 to 3 days segments, but then she will have many good days. During these times she is bit more agitated and has worsened memory, no etiology for when these days occur. Otherwise, no behavioral changes, no wandering, sleep has been stable, appetite and weight are stable. Patient did have 1 slip and fall in the bathroom, states that she was able to slowly bring herself down by holding onto the door with no injuries. got rid of the rug in the bathroom. Patient is not very physically active, discussed this with patient and family about increasing physical activity around the house. Patient does do a lot of cognitive activities at home including puzzles and word searches. No new symptoms today that would warrant additional workup at this time. Will continue with Namenda 10 mg twice daily and encouraged conservative therapy noted above. Patient has been agreeable to treatment plan of care at this time, questions were answered. Patient to follow-up in 5 to 6 months. Rosemarie Spears PA-C This is a 78 year old female followed for dementia Current medication treatment: Namenda 10 mg twice daily Indication for repeat cognitive testing: No Encounter Diagnosis ICD-10-CM 1. Dementia without behavioral disturbance, psychotic disturbance, mood disturbance, or anxiety, unspecified dementia severity, unspecified dementia type (HCC) F03.90 2. Memory change R41.3 Return in about 5 months (around 12/12/2024). Chart, labs,and relevant images reviewed. Chief Complaint:Patient presents with: Recheck: 3 months dementia Chart Review: Last Filed Values Date of Most Recent Assessment and Plan 04/14/24 Specialty General Neurology Assessment ASSESSMENT/PLAN: 1. Dementia without behavioral disturbance, psychotic disturbance, mood disturbance, or anxiety, unspecified dementia severity, unspecified dementia type (HCC) - ICD9: 294.20, ICD10: F03.90 (primary diagnosis) 2. Lacunar infarction (HCC) - ICD9: 434.91, ICD10: I63.81 3. Memory loss - ICD9: 780.93, ICD10: R41.3 4. Memory change - ICD9: 780.93, ICD10: R41.3 Patient with worsening memory since last visit, history primarily provided by . Notes she has been having good and bad days, today is a bad day. Angelina was , previous was . However, original moca ws . Patient with significant hippocampal atrophy on MRI brain concerning for neurodegenerative process, however, also has depression which may be contributing. No new concerns today,she did have a mechanical fall in February sustaining two compression fractures in her back, recovered well from this but notes she was agitated and confused during recovery, attributing this to pain meds. Has since improved. No further falls, walking around the house but not often, very cogniti vely active. Will continue with namenda 10mg bid and encouraged conservative therapy. Discussed help at home as patient lives solely with her , he notes no signs of burnout, doing well and deferred social work consult. No new symptoms that would warrant additional work up at this time, patient to follow up in 3 months for repeat moca. Patient and agreeable to treatment and plan. Rosemarie Spears PA-C HPI: Last seen on 04/14/24 for dementia. Some worsening memory, concerning for alzheimers. Had mechanical fall, on namenda 10mg bid. Deferred social work. Patient presents with her for follow-up appointment. Has been provides majority of information and history. Notes that patient did have 1 fall since last appointment where she was in the bathroom and she slipped on her slipper and fell down gently, holding onto the door. She did not hit herhead. Notes that they got rid of the rug in the bathroom. No other falls. Does note that her mood has been fluctuating, about a week and a half ago she had 2 bad days where she was more agitated and did not want to speak with family, but lately she has been fine. Notes that she has good days and bad days, typically she will have a few bad days in a row and then had many good days, no triggers that he can think of as to a cause. No change in memory per and patient report, feel this is stable. Doing well with Namenda without any lightheadedness or dizziness. Taking this twice daily. No weight fluctuations, diet is stable. Is not very physically active but does do a lot of puzzles and reading Sleep concerns? no Eating/nutrition concerns? no Med side effects concerns? no Hallucinations? no Social work consult interest? no Wandering/getting lost concern? no Caregiver burnout concern? no Driving safety concern? 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 FLUoxetine (PROZAC) 20 mg capsule Take 1 capsule by mouth once daily. Take along with 40 mg pill for a total of 60 mg daily busPIRone (BUSPAR) 10 mg tablet Take 1 tablet by mouth three times a day. traZODone (DESYREL) 50 mg tablet Take 1 tablet by mouth daily at bedtime. ondansetron (ZOFRAN) 4 mg tablet Take 4 mg by mouth every 8 hours as needed for nausea/vomiting. conjugated estrogens (PREMARIN) vaginal cream Use 1 g vaginally two times a week. multivitamin (MULTIPLE VITAMINS) tablet Take by mouth. loratadine (CLARITIN) 10 mg tablet Take by mouth. acetaminophen (TYLENOL EXTRA STRENGTH) 500 mg tablet Take 2 tablets by mouth every 6 hours as needed for pain. MELATONIN ORAL Take 6 mg by mouth daily at bedtime. memantine (NAMENDA) 10 mg tablet Take 1 tablet by mouth two times a day. pantoprazole DR (PROTONIX) 40 mg tablet Take 40 mg by mouth every 12 hours. DAILY MULTIVITAMIN TAB Take one(1) tablet daily. ALLERGIES No Known Allergies FAMILY HISTORY Problem Relation Age of Onset Stroke Father at 85, healthy til then Breast Cancer Maternal Aunt roughly 40 Colon Cancer Other none Coronary Artery Disease Other none Diabetes Other none PAST SURGICAL HISTORY Procedure Laterality Date COLONOSCOPY [address] ABEL [facility], NORMAL LIG/TRNSXJ FLP TUBE ABDL/VAG APPR UNI/BI Tubal ligation she was 36 years old Social Hx: @Alcohol Use: Not on file Tobacco Use: Low Risk (07/14/2024) Patient History Smoking Tobacco Use: Never Smokeless Tobacco Use: Never Passive Exposure: Not on file 07/14/24 1314 07/14/24 1320 BP: (!) 201/90 175/72 Pulse: 74 Neurologic Exam Cognitive and Language: Alert and answered questions appropriately. Language was fluent. Cranial Nerves: Extraocular movements were full with no diplopia or nystagmus. Facial strength was symmetric. Motor: Sensory: Coordination: Normal finger to nose and heel to lee testing bilaterally. Normal gait. Labs: Lab Results Component Value Date WBC 9.83 04/07/2023 HCT 39.4 04/07/2023 MCV 92.9 04/07/2023 PLT 410 (H) 04/07/2023 Lab Results Component Value Date HBA1C 5.9 02/02/2024 HBA1C 6.1 08/27/2023 HBA1C 5.7 06/13/2022 HBA1C 6.3 01/21/2018 HBA1C 6.0 02/17/2017 HBA1C 6.0 02/23/2016 HBA1C 6.2 06/18/2013 Cholesterol, Total Date Value Ref Range Status 08/22/2023 195 <200 mg/dL Final Comment: <200 mg/dL, Desirable 200-239 mg/dL, Borderline high >239 mg/dL, High HDL Cholesterol Date Value Ref Range Status 08/22/2023 69 >39 mg/dL Final Comment: 40-59 mg/dL, Acceptable >59 mg/dL, High: Negative risk factor for coronary heart disease <40 mg/dL, Low: Positive risk factor for coronary heart disease LDL Cholesterol Date Value Ref Range Status 08/22/2023 98 <100 mg/dL Final Comment: <100 mg/dL, Optimal 100-129 mg/dL, Near optimal/above optimal 130-159 mg/dL, Borderline high 160-189 mg/dL, High >189 mg/dL, Very high Secondary prevention optimal LDL Cholesterol levels are recommended to be < 70 mg/dL Triglyceride Date Value Ref Range Status 08/22/2023 140 <150 mg/dL Final Comment: <150 mg/dL, Normal 150-199 mg/dL, Borderline high 200-499 mg/dL, High >499 mg/dL, Very high Lab Results Component Value Date TSH 2.050 04/07/2023 TSH 3.850 03/23/2012 Lab Results Component Value Date [id number] 04/07/2023 Results for orders placed or performed in visit on 02/02/24 HGB A1C Result Value Ref Range Hemoglobin A1C 5.9 (H) 4.3 - 5.6 % Estimated Average Glucose 123 mg/dL COMP METABOLIC PANEL Result Value Ref Range Protein, Total 7.4 6.3 - 8.0 g/dL Albumin 4.4 3.9 - 4.9 g/dL Calcium, Total 10.3 (H) 8.5 - 10.2 mg/dL Bilirubin, Total 0.6 0.2 - 1.3 mg/dL Alkaline Phosphatase 88 34 - 123 U/L AST 20 13 - 35 U/L ALT 15 7 - 38 U/L Glucose 130 (H) 74 - 99 mg/dL BUN 13 7 - 21 mg/dL Creatinine 0.83 0.58 - 0.96 mg/dL Sodium 140 136 - 144 mmol/L Potassium 4.1 3.7 - 5.1 mmol/L Chloride 102 98 - 107 mmol/L CO2 25 22 - 30 mmol/L Anion Gap 13 8 - 15 mmol/L Estimated Glomerular Filtration Rate 72 >=60 mL/min/1.73m Radiology: MRI Head/Brain - Last 2 Impressions MRI BRAIN WO IVCON Exam End: 05/22/2023 9:51 AM (Final result) Impression: IMPRESSION: * No evidence of an acute intracranial process or intracranial mass. * Severe temporal predominant volume loss. Quantitative assessment as above.... MRI BRAIN WO IVCON Exam End: 07/25/2022 2:01 PM (Final result) Impression: IMPRESSION: No evidence of an acute intracranial infarction. Volume loss and chronic small vessel ischemic changes.... This note was dictated using [employer] speech recognition software and may contain some errors that were a result of the program not accurately transcribing what was dictated, despite efforts to make corrections. Note that unless urgent, test and MRI results will be discussed at next follow- up visit. PROMIS (Patient-Reported Outcomes Measurement Information System) is a set of person-centered measures that evaluates and monitors physical, social, and emotional health. It can be used with the general population and with individuals living with chronic conditions. PROMIS 10: PHYSICAL AND MENTAL HEALTH: 12/16/2018 PHQ-9 PHQ-2 Score 5 PHQ-9 Score 8 Medical Decision Making: Medical Decision Making Level: 1 - N/A I spent a total of 40 minutes on the date of the service which included preparing to see the patient, [id number] patient care, completing clinical documentation, obtaining and/or reviewing separately obtained history, performing a medically appropriate examination, counseling and educating the pat ient/family/caregiver, and ordering medications, tests, or procedures. documented in this encounterJ.[facility]. [facility] NoteHNO ID: [id number] Author: HERMAN PALUMBO MD Service: ? Author Type: Physician Type: Progress Notes Filed: 07/07/2024 12:07 Note Text: Acid Wash Operator offered: Patient declines. Willem Evans is a 78 year old No obstetric history on file. who presents today for pessary insertion/cleaning. She wears a size 2 short stem Gellhorn pessary. She returns today with no complaints. She has not had problems with the pessary. She has not had vaginal discharge. She has not had vaginal bleeding. EXAM: pleasant, well developed, well nourished, in no apparent distress Pelvic: Bartholin's, urethra and [place]'s glands were normal. The Gellhorn pessary was removed. Vaginal exam indicated no erythema, no ulcerations, and no vaginal discharge. The pessary was cleaned a size 2 Gellhorn was inserted without difficulty The pessary was inserted, patient tolerated the procedure well and the device is comfortable. (N81.4) Cystocele with prolapse (primary encounter diagnosis) (Z46.89) Pessary maintenance Pessary check in 3 months I spent a total of 20 minutes on the date of the service which included preparing to see the patient, [id number] patient care, completing clinical documentation, obtaining and/or reviewing separately obtained history, performing a medically appropriate examination, and counseling and educating the patient/family/caregiver. Herman Almanzar [facility]11-27-2024 History of Present illness Narrative* Herman Palumbo MD - 07/07/2024 11:45 AM EST Acid Wash Operator offered: Patient declines. Willem Evans is a 78 year old No obstetric history on file. who presents today for pessary insertion/cleaning. She wears a size 2 short stem Gellhorn pessary. She returns today with no complaints. She has not had problems with the pessary. She has not had vaginal discharge. She has not had vaginalbleeding. EXAM: pleasant, well developed, well nourished, in no apparent distress Pelvic: Bartholin's, urethra and [place]'s glands were normal. The Gellhorn pessary was removed. Vaginal exam indicated no erythema, no ulcerations, and no vaginal discharge. The pessary was cleaned a size 2 Gellhorn was inserted without difficulty The pessary was inserted, patient tolerated the procedure well and the device is comfortable. (N81.4) Cystocele with prolapse (primary encounter diagnosis) (Z46.89) Pessary maintenance Pessary check in 3 months I spent a total of 20 minutes on the date of the service which included preparing to see the patient, [id number] patient care, completing clinical documentation, obtaining and/or reviewing separately obtained history, performing a medically appropriate examination, and counseling and educating the patient/family/caregiver. Herman Almanzar MD documented [facility] encounter[facility] Telephone encounter Note * Telephone Encounter - Uday Elizabeth APRN.CNP - 06/04/2024 9:51 AM EDT The following approved medication requests have been transmitted electronically. Requested Prescriptions Pending Prescriptions Disp Refills FLUoxetine (PROZAC) 40 mg capsule 90 capsule 3 Sig: Take 1 capsule by mouth once daily. FLUoxetine (PROZAC) 20 mg capsule 90 capsule 3 Sig: Take 1 capsule by mouth once daily. Take along with 40 mg pill for a total of 60 mg daily busPIRone (BUSPAR) 10 mg tablet 90 tablet 5 Sig: Take 1 tablet by mouth three times a day. Uday Elizabeth APRN.CNP [facility]10-25-2024 Miscellaneous Notes* Telephone Encounter - Uday Elizabeth APRN.CNP - 06/04/2024 9:51 AM EDT The following approved medication requests have been transmitted electronically. Requested Prescriptions Pending Prescriptions Disp Refills FLUoxetine (PROZAC) 40 mg capsule 90 capsule 3 Sig: Take 1 capsule by mouth once daily. FLUoxetine (PROZAC) 20 mg capsule 90 capsule 3 Sig: Take 1 capsule by mouth once daily. Take along with 40 mg pill for a total of 60 mg daily busPIRone (BUSPAR) 10 mg tablet 90 tablet 5 Sig: Take 1 tablet by mouth three times a day. Uday Elizabeth APRN.CNP * Telephone Encounter - Gustavo Marin MA - 06/04/2024 9:44 AM EDT We do not prescribe Namenda, refill encounter sent to Neuro. Pended Buspar and Prozac 40 mg and 20 mg. Gustavo Marin MA * Telephone Encounter - Robyn Winn - 06/04/2024 9:30 AM EDT Prescription Refill Information The patient has been identified by name and date of : Yes Caregiver verified no other encounters exist for this prescription request: Yes Caregiver confirmed with patient/requestor that no other refills are due, in the near future, with this provider at this time: Yes The last office visit in the department: 04-14-24 Does the patient have a future office visit with this provider/department: Yes Requested scripts: Disp Refills Start End busPIRone (BUSPAR) 10 mg tablet 90 tablet 5 10/31/2023 04/28/2024 Sig: Take 1 tablet by mouth three times a day. Sent to pharmacy as: busPIRone (BUSPAR) 10 mg tablet Class: Normal Route: ORAL Disp Refills Start End memantine (NAMENDA) 5 mg tablet (Discontinued) 60 tablet 2 08/19/2023 11/19/2023 Sig: Take 1 tablet daily x1 week, then increase to 1 tablet twice daily Sent to pharmacy as: memantine (NAMENDA) 5 mg tablet Class: Normal Order: [id number] FLUoxetine (PROZAC) 40 mg capsule 90 capsule 3 08/01/2023 -- Sig: Take 1 capsule by mouth once daily. Sent to pharmacy as: FLUoxetine (PROZAC) 40 mg capsule Class: Normal Route: ORAL Order: [id number] Disp Refills Start End FLUoxetine (PROZAC) 20 mg capsule 90 capsule 3 08/01/2023 -- Sig: Take 1 capsule by mouth once daily. Take along with 40 mg pill for a total of 60 mg daily Sent to pharmacy as: FLUoxetine (PROZAC) 20 mg capsule Class: Normal Route: ORAL Order: [id number] Venus Messina June 04, 2024 9:31 AM documented in this encounterJ[facility]. [facility]10-[facility] Telephone encounter Note * Telephone Encounter - Gustavo Marin MA - 06/04/2024 9:46 AM EDT Pt called in requesting a refill for Namenda to PCP's office. Refill encounter started and routed to Neuro. Gustavo Marin MA [facility]10-25-[facility]24 Miscellaneous Notes* Telephone Encounter - Gustavo Marin MA - 06/04/2024 9:46 AM EDT Pt called in requesting a refill for Namenda to PCP's office. Refill encounter started and routed to Neuro. Gustavo Marin MA documented in this encounterJ[facility]. [facility]10-[facility] Telephone encounter Note * Telephone Encounter - Gustavo Marin MA - 06/04/2024 9:44 AM EDT We do not prescribe Namenda, refill encounter sent to Neuro. Pended Buspar and Prozac 40 mg and 20 mg. Gustavo Marin MA [facility]10-25-2024 Telephone encounter Note* Telephone Encounter - Robyn Winn - 06/04/2024 9:30 AM EDT Prescription Refill Information The patient has been identified by name and date of : Yes Caregiver verified no other encounters exist for this prescription request: Yes Caregiver confirmed with patient/requestor that no other refills are due, in the near future, with this provider at this time: Yes The last office visit in the department: 04-14-24 Does the patient have a future office visit with this provider/department: Yes Requested scripts: Disp Refills Start End busPIRone (BUSPAR) 10 mg tablet 90 tablet 5 10/31/2023 04/28/2024 Sig: Take 1 tablet by mouth three times a day. Sent to pharmacy as: busPIRone (BUSPAR) 10 mg tablet Class: Normal Route: ORAL Disp Refills Start End memantine (NAMENDA) 5 mg tablet (Discontinued) 60 tablet 2 08/19/2023 11/19/2023 Sig: Take 1 tablet daily x1 week, then increase to 1 tablet twice daily Sent to pharmacy as: memantine (NAMENDA) 5 mg tablet Class: Normal Order: [id number] FLUoxetine (PROZAC) 40 mg capsule 90 capsule 3 08/01/2023 -- Sig: Take 1 capsule by mouth once daily. Sent to pharmacy as: FLUoxetine (PROZAC) 40 mg capsule Class: Normal Route: ORAL Order: [id number] Disp Refills Start End FLUoxetine (PROZAC) 20 mg capsule 90 capsule 3 08/01/2023 -- Sig: Take 1 capsule by mouth once daily. Take along with 40 mg pill for a total of 60 mg daily Sent to pharmacy as: FLUoxetine (PROZAC) 20 mg capsule Class: Normal Route: ORAL Order: [id number] Venus Messina June 04, 2024 9:31 AM [facility] Work Phone: [phone] Telephone encounter Note* Telephone Encounter - Citlaly العراقي MD - 05/28/2024 4:48 PM EDT OK to refill as ordered Citlaly العراقي MD [facility]10-18-2024 Miscellaneous Notes* Telephone Encounter - Citlaly العراقي MD - 05/28/2024 4:48 PM EDT OK to refill as ordered Citlaly العراقي MD * Telephone Encounter - Jessy Stephenson - 05/28/2024 3:24 PM EDT Prescription Refill Information The patient has been identified by name and date of : Yes Caregiver verified no other encounters exist for this prescription request: Yes Caregiver confirmed with patient/requestor that no other refills are due, in the near future, with this provider at this time: Yes The last office visit in the department: 04/14/24 Does the patient have a future office visit with this provider/department: Yes Requested Prescriptions Pending Prescriptions Disp Refills traZODone (DESYREL) 50 mg tablet 30 tablet 2 Sig: Take 1 tablet by mouth daily at bedtime. Jessy Messina May 28, 2024 3:25 PM documented in this encounterJ.[facility]. [facility]10-[facility]-20[facility] Telephone encounter Note * Telephone Encounter - Jessy Stephenson - 05/28/2024 3:24 PM EDT Prescription Refill Information The patient has been identified by name and date of : Yes Caregiver verified no other encounters exist for this prescription request: Yes Caregiver confirmed with patient/requestor that no other refills are due, in the near future, with this provider at this time: Yes The last office visit in the department: 04/14/24 Does the patient have a future office visit with this provider/department: Yes Requested Prescriptions Pending Prescriptions Disp Refills traZODone (DESYREL) 50 mg tablet 30 tablet 2 Sig: Take 1 tablet by mouth daily at bedtime. Jessy Messina May 28, 2024 3:25 PM [facility]09-04-20[facility] Instructions* Patient Instructions* Yun Jackson APRN.CNP - 04/14/2024 2:33 PM EDT Continue to take all medication as prescribed. Monitor blood pressure at home, goal 130/80 or less Watch salt and processed foods in the diet. Keep scheduled appointments with Neurology Follow up 3 month. documented in this encounterJ.[facility]. [facility]09-04-[facility] History of Present illness Narrative* Yun Jackson APRN.CNP - 04/14/2024 2:20 PM EDT This is a 78 year old female who presents today with: Patient presents with: Follow Up: 3 month follow up HISTORY OF PRESENT ILLNESS: Willem Evans is a 78 year old female. Patient presents with: Follow Up: 3 month follow up Prediabetes: A1C went from 6.1 to 5.9, refers that they have been watching diet. No hypoglycemic episodes. Denies increased thirst or urination. No difficulty with vision. Repeat labs due in August. Anxiety/depression: Taking Prozac 40 mg plus an additional 20 mg. Taking BuSpar 10 mg three times daily. refers that some days she seems more anxious, usually in the evening after dinner. Sleeping well. No Si/Hi. Using Trazodone 50 mg at bedtime which has been very helpful. Memory: Some worsening symptoms in the evening. Following with Neurology, Seen today prior to todays appt. Taking Namenda. Still some agitation at night time, seems to come and go. Refers she feels well. Gi Bleed: Taking protonix 40 mg BID. No abdominal pain, nausea, or vomiting. Vaccines: Would like flu vaccine today. PAST MEDICAL HISTORY: PAST MEDICAL HISTORY No date: Allergic rhinitis, cause unspecified No date: Generalized anxiety disorder Comment: with social component No date: Irritable bowel syndrome Comment: mainly constipation No date: Osteoporosis, unspecified Comment: per prior DEXA times 2 No date: Overweight(278.02) PAST SURGICAL HISTORY 2001 +/-: COLONOSCOPY Comment: DR. ABEL, [facility], NORMAL No date: LIG/TRNSXJ FLP TUBE ABDL/VAG APPR UNI/BI Comment: Tubal ligation she was 36 years old ALLERGIES Patient has no known allergies. MEDICATIONS Current Outpatient Medications Medication Sig ondansetron (ZOFRAN) 4 mg tablet Take 4 mg by mouth every 8 hours as needed for nausea/vomiting. pantoprazole DR (PROTONIX) 40 mg tablet Take 40 mg by mouth every 12 hours. traZODone (DESYREL) 50 mg tablet Take 1 tablet by mouth daily at bedtime. memantine (NAMENDA) 10 mg tablet Take 1 tablet by mouth two times a day. busPIRone (BUSPAR) 10 mg tablet Take 1 tablet by mouth three times a day. FLUoxetine (PROZAC) 20 mg capsule Take 1 capsule by mouth once daily. Take along with 40 mg pill for a total of 60 mg daily FLUoxetine (PROZAC) 40 mg capsule Take 1 capsule by mouth once daily. conjugated estrogens (PREMARIN) vaginal cream Use 1 g vaginally two times a week. multivitamin (MULTIPLE VITAMINS) tablet Take by mouth. loratadine (CLARITIN) 10 mg tablet Take by mouth. acetaminophen (TYLENOL EXTRA STRENGTH) 500 mg tablet Take 2 tablets by mouth every 6 hours as needed for pain. MELATONIN ORAL Take 6 mg by mouth daily at bedtime. DAILY MULTIVITAMIN TAB Take one(1) tablet daily. No current facility-administered medications for this visit. FAMILY HISTORY Problem Relation Age of Onset Stroke Father at 85, healthy til then Breast Cancer Maternal Aunt roughly 40 Colon Cancer Other none Coronary Artery Disease Other none Diabetes Other none Social History Tobacco Use Smoking status: Never Smokeless tobacco: Never Tobacco comments: Goes by Willem Vaping Use Vaping status: Never Used Substance Use Topics Alcohol use: No Drug use: No REVIEW OF SYSTEMS GENERAL: No weight loss, malaise or fevers/chills HEENT: Negative for frequent or significant headaches, No changes in hearing or vision. NECK: Negative for lumps, goiter, pain and significant neck swelling RESPIRATORY: Negative for cough, hemoptysis, wheezing, dyspnea or shortness of breath CARDIOVASCULAR: Negative for chest pain, leg swelling, orthopnea, or palpitations GI: No nausea, vomiting, or diarrhea/constipation. No hematochezia/melena. No heartburn or reflux symptoms. : No history of dysuria, frequency or incontinence MUSCULOSKELETAL: Negative for joint pain or swelling. SKIN: Negative for lesions, rash, and itching ENDOCRINE: Negative for cold or heat intolerance, polyuria, polydipsia and goiter NEURO: No history of headaches, syncope, paralysis, seizures or tremors MOOD: Negative for depression, anxiety, or suicidal ideation. EXAM: BP 142/78 Pulse 73 Resp 16 Wt 69.3 kg (152 lb 12.5 oz) SpO2 98% PHYSICAL EXAM: General Appearance: Well appearing, alert, in no acute distress, well-hydrated, well nourished. Skin: Skin color, texture, turgor normal, no suspicious rashes or lesions. Head: Normocephalic, no masses, lesions, tenderness or abnormalities. Eyes: Anicteric sclera. Extraocular movements are intact. Lungs: Lungs clear to auscultation. No wheezing, rhonchi, rales. Heart: RRR without murmur, gallop, or rubs. No ectopy. Extremities: No deformities, edema, skin discoloration, clubbing or cyanosis. Good capillary refill. Peripheral Pulses: Normal. Neurologic: Gait normal. Sensation grossly intact. ASSESSMENT/PLAN: 1. Elevated blood pressure reading without diagnosis of hypertension - ICD9: 796.2, ICD10: R03.0 (primary diagnosis) - Encouraged dietary sodium restriction/DASH diet - Recommended regular aerobic exercise. - Recommend home blood pressure monitoring, to bring results in on next visit - Denied wanting to start medication at this time - Goal of BP <130/80 2. Dementia without behavioral disturbance (HCC) - ICD9: 294.20, ICD10: F03.90 - Stable, continue to take current medication. - Keep scheduled appointments with neurology. 3. Generalized anxiety disorder - ICD9: 300.02, ICD10: F41.1 - Stable, continue to take current medication 4. Major depressive disorder, recurrent, in full remission (HCC) - ICD9: 296.36, ICD10: F33.42 - Same plan as #3. 5. Agitation - ICD9: 307.9, ICD10: R45.1 - Same plan as #3. 6. Gastrointestinal hemorrhage, unspecified gastrointestinal hemorrhage type - ICD9: 578.9, ICD10: K92.2 - Stable, continue to take current medication 7. Chronic insomnia - ICD9: 780.52, ICD10: F51.04 - Stable, continue to take current medication 8. Prediabetes - ICD9: 790.29, ICD10: R73.03 - Get repeat labs in August prior to next appointment - Work on lifestyle changes at home. 9. Mixed hyperlipidemia - ICD9: 272.2, ICD10: E78.2 - Control undetermined, due for labs - Counseled on healthy diet and regular exercise 10. Encounter for immunization - ICD9: V03.89, ICD10: Z23 - VIS provided. - INFLUENZA VACCINE, PRSV FREE, AGE 65+ YR, HIGH DOSE, TRIVALENT (FLUZONE HIGH-DOSE) Follow-up in August with labs prior. Discussed treatment plan and patient voices understanding. Patient's questions answered appropriately. Medications and potential side effects were discussed and patient voices understanding. Yun Jackson APRN.CNP This note was partially generated using [employer] voice recognition system. Note was reviewed for accuracy. There may be minor misspellings or grammar miscues with [employer] voice recognition. documented in this encounterJ.W. [facility]09-04-[facility]24 NoteHNO ID: [id number] Author: YUN JACKSON APRN.CNP Service: ? Author Type: Nurse Practitioner Type: Progress Notes Filed: 04/14/2024 15:23 Note Text: This is a 78 year old female who presents today with: Patient presents with: Follow Up: 3 month follow up HISTORY OF PRESENT ILLNESS: Willem Evans is a 78 year old female. Patient presents with: Follow Up: 3 month follow up Prediabetes: A1C went from 6.1 to 5.9, refers that they have been watching diet. No hypoglycemic episodes. Denies increased thirst or urination. No difficulty with vision. Repeat labs due in August. Anxiety/depression: Taking Prozac 40 mg plus an additional 20 mg. Taking BuSpar 10 mg three times daily. refers that some days she seems more anxious, usually in the evening after dinner. Sleeping well. No Si/Hi. Using Trazodone 50 mg at bedtime which has been very helpful. Memory: Some worsening symptoms in the evening. Following with Neurology, Seen today prior to todays appt. Taking Namenda. Still some agitation at night time, seems to come and go. Refers she feels well. Gi Bleed: Taking protonix 40 mg BID. No abdominal pain, nausea, or vomiting. Vaccines: Would like flu vaccine today. PAST MEDICAL HISTORY: PAST MEDICAL HISTORY No date: Allergic rhinitis, cause unspecified No date: Generalized anxiety disorder Comment: with social component No date: Irritable bowel syndrome Comment: mainly constipation No date: Osteoporosis, unspecified Comment: per prior DEXA times 2 No date: Overweight(278.02) PAST SURGICAL HISTORY 2001 +/-: COLONOSCOPY Comment: DR. ABEL, [facility], NORMAL No date: LIG/TRNSXJ FLP TUBE ABDL/VAG APPR UNI/BI Comment: Tubal ligation she was 36 years old ALLERGIES Patient has no known allergies. MEDICATIONS Current Outpatient Medications Medication Sig ondansetron (ZOFRAN) 4 mg tablet Take 4 mg by mouth every 8 hours as needed for nausea/vomiting. pantoprazole DR (PROTONIX) 40 mg tablet Take 40 mg by mouth every 12 hours. traZODone (DESYREL) 50 mg tablet Take 1 tablet by mouth daily at bedtime. memantine (NAMENDA) 10 mg tablet Take 1 tablet by mouth two times a day. busPIRone (BUSPAR) 10 mg tablet Take 1 tablet by mouth three times a day. FLUoxetine (PROZAC) 20 mg capsule Take 1 capsule by mouth once daily. Take along with 40 mg pill for a total of 60 mg daily FLUoxetine (PROZAC) 40 mg capsule Take 1 capsule by mouth once daily. conjugated estrogens (PREMARIN) vaginal cream Use 1 g vaginally two times a week. multivitamin (MULTIPLE VITAMINS) tablet Take by mouth. loratadine (CLARITIN) 10 mg tablet Take by mouth. acetaminophen (TYLENOL EXTRA STRENGTH) 500 mg tablet Take 2 tablets by mouth every 6 hours as needed for pain. MELATONIN ORAL Take 6 mg by mouth daily at bedtime. DAILY MULTIVITAMIN TAB Take one(1) tablet daily. No current facility-administered medications for this visit. FAMILY HISTORY Problem Relation Age of Onset Stroke Father at 85, healthy til then Breast Cancer Maternal Aunt roughly 40 Colon Cancer Other none Coronary Artery Disease Other none Diabetes Other none Social History Tobacco Use Smoking status: Never Smokeless tobacco: Never Tobacco comments: Goes by Willem Vaping Use Vaping status: Never Used Substance Use Topics Alcohol use: No Drug use: No REVIEW OF SYSTEMS GENERAL: No weight loss, malaise or fevers/chills HEENT: Negative for frequent or significant headaches, No changes in hearing or vision. NECK: Negative for lumps, goiter, pain and significant neck swelling RESPIRATORY: Negative for cough, hemoptysis, wheezing, dyspnea or shortness of breath CARDIOVASCULAR: Negative for chest pain, leg swelling, orthopnea, or palpitations GI: No nausea, vomiting, or diarrhea/constipation. No hematochezia/melena. No heartburn or reflux symptoms. : No history of dysuria, frequency or incontinence MUSCULOSKELETAL: Negative for joint pain or swelling. SKIN: Negative for lesions, rash, and itching ENDOCRINE: Negative for cold or heat intolerance, polyuria, polydipsia and goiter NEURO: No history of headaches, syncope, paralysis, seizures or tremors MOOD: Negative for depression, anxiety, or suicidal ideation. EXAM: BP 142/78 Pulse 73 Resp 16 Wt 69.3 kg (152 lb 12.5 oz) SpO2 98% PHYSICAL EXAM: General Appearance: Well appearing, alert, in no acute distress, well-hydrated, well nourished. Skin: Skin color, texture, turgor normal, no suspicious rashes or lesions. Head: Normocephalic, no masses, lesions, tenderness or abnormalities. Eyes: Anicteric sclera. Extraocular movements are intact. Lungs: Lungs clear to auscultation. No wheezing, rhonchi, rales. Heart: RRR without murmur, gallop, or rubs. No ectopy. Extremities: No deformities, edema, skin discoloration, clubbing or cyanosis. Good capillary refill. Peripheral Pulses: Normal. Neurologic: Gait normal. Sensation grossl (more content not included)... [facility]09-04-2024 Instructions* Patient Instructions* Rosemarie Spears PA-C - 04/14/2024 1:46 PM EDT Continue with namenda 10mg Follow up in three months or sooner if needed documented in this encounterJ.W. [facility]09-04-2024 NoteHNO ID: [id number] Author: ROSEMARIE SPEARS PA-C Service: ? Author Type: Physician Engineer/Conductor Type: Progress Notes Filed: 04/14/2024 14:39 Note Text: [facility] Name: Willem Evans Age: [age] year old Gender: female Primary Care Provider: Citlaly العراقي MD 04/14/2024 - General Neurology, Rosemarie Spears PA-C ASSESSMENT ASSESSMENT/PLAN: 1. Dementia without behavioral disturbance, psychotic disturbance, mood disturbance, or anxiety, unspecified dementia severity, unspecified dementia type (HCC) - ICD9: 294.20, ICD10: F03.90 (primary diagnosis) 2. Lacunar infarction (HCC) - ICD9: 434.91, ICD10: I63.81 3. Memory loss - ICD9: 780.93, ICD10: R41.3 4. Memory change - ICD9: 780.93, ICD10: R41.3 Patient with worsening memory since last visit, history primarily provided by . Notes she has been having good and bad days, today is a bad day. Angelina was 15, previous was . However, original moca ws 14. Patient with significant hippocampal atrophy on MRI brain concerning for neurodegenerative process, however, also has depression which may be contributing. No new concerns today, she did have a mechanical fall in February sustaining two compression fractures in her back, recovered well from this but notes she was agitated and confused during recovery, attributing this to pain meds. Has since improved. No further falls, walking around the house but not often, very cognitively active. Will continue with namenda 10mg bid and encouraged conservative therapy. Discussed help at home as patient lives solely with her , he notes no signs of burnout, doing well and deferred social work consult. No new symptoms that would warrant additional work up at this time, patient to follow up in 3 months for repeat moca. Patient and agreeable to treatment and plan. Rosemarie Spears PA-C This is a 78 year old female followed for memory loss. Current medication treatment: Namenda 10mg bid Indication for repeat cognitive testing: No Encounter Diagnosis ICD-10-CM 1. Dementia without behavioral disturbance, psychotic disturbance, mood disturbance, or anxiety, unspecified dementia severity, unspecified dementia type (HCC) F03.90 2. Lacunar infarction (HCC) I63.81 3. Memory loss R41.3 4. Memory change R41.3 Return in about 3 months (around 07/14/2024). Chart, labs,and relevant images reviewed. Chief Complaint:Patient presents with: Follow Up Chart Review: 12/10/23 ASSESSMENT/PLAN: 1. Dementia without behavioral disturbance, psychotic disturbance, mood disturbance, or anxiety, unspecified dementia severity, unspecified dementia type (HCC) - ICD9: 294.20, ICD10: F03.90 (primary diagnosis) Patient with significant improvement in her MoCA today, previous was and today was . Did significant treatment in her mood as well, patient does suffer from depression and is on Prozac and BuSpar, likely impacting her memory. However, MRI of the brain was hippocampus in the 1st percentile, neuro psychological testing concerning for dementia process like Alzheimer's disease as well as 0/5 on MoCA for delayed recall concerning for neurodegenerative process like Alzheimer's disease. Discussed this at length with patient and her and they understand. Previously did not tolerate Aricept due to bradycardia so this was stopped. She started Namenda at last appointment and had some benefit with this, no side effects. Would like to increase if tolerated. Will increase Namenda to 10 mg twice daily, discussed common side effects and patient is amenable. Weight is stable, patient is not driving, able to perform ADLs at home where she lives with her . Encouraged conservative therapy as well including increasing physical activity, cognitive activity. 2. Lacunar infarction (HCC) - ICD9: 434.91, ICD10: I63.81 No new neurologic symptoms, patient compliant with aspirin daily. Encouraged monitoring and maintaining risk factors with primary care. Patient has been agreeable to treatment plan of care at this time, questions were answered. Patient to follow-up in 3 months or sooner should any symptoms change or worsen. Rosemarie Spears PA-C HPI: Last seen on 12/10/23 for memory loss, neuropsych testing supports dementia. Reports being stable on aricpet 10mg, moca , increased namenda to 10mg bid. Patient presents with her for follow up. Notes she had a fall in February after she was bending over to put clothes in the washer. Sustained two compression fractures, has been doing well. Was very confused for a while due to the trauma as well as the pain medication but since she has stopped this, she has improved. Notes that the last few days she has been forgetful, but before this she had three good days. Seems her memory is fluctuating daily. Was agitated during he recovery but now her mood is normal. Patient has no memory of t (more content not included)...[facility]09-04-2024 History of Present illness Narrative* Rosemarie Spears PA-C - 04/14/2024 1:31 PM EDT Images from the original note were not included. [facility] Name: Willem Evans Age: [age] year old Gender: female Primary Care Provider: Citlaly العراقي MD 04/14/2024 - General Neurology, Rosemarie Spears PA-C ASSESSMENT ASSESSMENT/PLAN: 1. Dementia without behavioral disturbance, psychotic disturbance, mood disturbance, or anxiety, unspecified dementia severity, unspecified dementia type (HCC) - ICD9: 294.20, ICD10: F03.90 (primary diagnosis) 2. Lacunar infarction (HCC) - ICD9: 434.91, ICD10: I63.81 3. Memory loss - ICD9: 780.93, ICD10: R41.3 4. Memory change - ICD9: 780.93, ICD10: R41.3 Patient with worsening memory since last visit, history primarily provided by . Notes she has been having good and bad days, today is a bad day. Angelina was , previous was . However, original moca ws . Patient with significant hippocampal atrophy on MRI brain concerning for neurodegenerative process, however, also has depression which may be contributing. No new concerns today,she did have a mechanical fall in February sustaining two compression fractures in her back, recovered well from this but notes she was agitated and confused during recovery, attributing this to pain meds. Has since improved. No further falls, walking around the house but not often, very cogniti vely active. Will continue with namenda 10mg bid and encouraged conservative therapy. Discussed help at home as patient lives solely with her , he notes no signs of burnout, doing well and deferred social work consult. No new symptoms that would warrant additional work up at this time, patient to follow up in 3 months for repeat moca. Patient and agreeable to treatment and plan. Rosemarie Spears PA-C This is a 78 year old female followed for memory loss. Current medication treatment: Namenda 10mg bid Indication for repeat cognitive testing: No Encounter Diagnosis ICD-10-CM 1. Dementia without behavioral disturbance, psychotic disturbance, mood disturbance, or anxiety, unspecified dementia severity, unspecified dementia type (HCC) F03.90 2. Lacunar infarction (HCC) I63.81 3. Memory loss R41.3 4. Memory change R41.3 Return in about 3 months (around 07/14/2024). Chart, labs,and relevant images reviewed. Chief Complaint:Patient presents with: Follow Up Chart Review: 12/10/23 ASSESSMENT/PLAN: 1. Dementia without behavioral disturbance, psychotic disturbance, mood disturbance, or anxiety, unspecified dementia severity, unspecified dementia type (HCC) - ICD9: 294.20, ICD10: F03.90 (primary diagnosis) Patient with significant improvement in her MoCA today, previous was and today was . Didsignificant treatment in her mood as well, patient does suffer from depression and is on Prozac andBuSpar, likely impacting her memory. However, MRI of the brain was hippocampus in the 1st percentile, neuro psychological testing concerning for dementia process like Alzheimer's disease as well as 0/5 on MoCA for delayed recall concerning for neurodegenerative process like Alzheimer's disease. Discussed this at length with patient and her and they understand. Previously did not tolerate Aricept due to bradycardia so this was stopped. She started Namenda at last appointment and had somebenefit with this, no side effects. Would like to increase if tolerated. Will increase Namenda to 10 mg twice daily, discussed common side effects and patient is amenable. Weight is stable, patient is not driving, able to perform ADLs at home where she lives with her . Encouraged conservative therapy as well including increasing physical activity, cognitive activity. 2. Lacunar infarction (HCC) - ICD9: 434.91, ICD10: I63.81 No new neurologic symptoms, patient compliant with aspirin daily. Encouraged monitoring and maintaining risk factors with primary care. Patient has been agreeable to treatment plan of care at this time, questions were answered. Patientto follow-up in 3 months or sooner should any symptoms change or worsen. Rosemarie Spears PA-C HPI: Last seen on 12/10/23 for memory loss, neuropsych testing supports dementia. Reports being stable on aricpet 10mg, moca , increased namenda to 10mg bid. Patient presents with her for follow up. Notes she had a fall in February after she was bendingover to put clothes in the washer. Sustained two compression fractures, has been doing well. Was very confused for a while due to the trauma as well as the pain medication but since she has stopped this, she has improved. Notes that the last few days she has been forgetful, but before this she had three good days. Seems her memory is fluctuating daily. Was agitated during he recovery but now her mood is normal. Patient has no memory of the fall or recovery. Slowly increasing her physical activity, notes good cognitive activity. She is no longer cooking. Sleep concerns? yes, but on a sleep pill Eating/nutrition concerns? no Med side effects concerns? no Hallucinations? no Social work consult interest? no Wandering/getting lost concern? no Caregiver burnout concern? no Driving safety concern? no Review of Systems ACTIVE PROBLEM LIST Major Depressive Disorder, Recurrent, in Full Remission (Hcc) Osteoporosis, Unspecified Generalized Anxiety Disorder Pain in Joint, Shoulder Region Irritable Bowel Syndrome Allergic Rhinitis, Cause Unspecified Mixed Hyperlipidemia Obesity, Unspecified Occlusion and Stenosis of Carotid Artery Without Mention of Cerebral Infarction Dementia Without Behavioral Disturbance (Hcc) PAST MEDICAL HISTORY No date: Allergic rhinitis, cause unspecified No date: Generalized anxiety disorder Comment: with social component No date: Irritable bowel syndrome Comment: mainly constipation No date: Osteoporosis, unspecified Comment: per prior DEXA times 2 No date: Overweight(278.02) Medications: Reviewed ondansetron (ZOFRAN) 4 mg tablet Take 4 mg by mouth every 8 hours as needed for nausea/vomiting. pantoprazole DR (PROTONIX) 40 mg tablet Take 40 mg by mouth every 12 hours. traZODone (DESYREL) 50 mg tablet Take 1 tablet by mouth daily at bedtime. memantine (NAMENDA) 10 mg tablet Take 1 tablet by mouth two times a day. busPIRone (BUSPAR) 10 mg tablet Take 1 tablet by mouth three times a day. FLUoxetine (PROZAC) 20 mg capsule Take 1 capsule by mouth once daily. Take along with 40 mg pill for a total of 60 mg daily FLUoxetine (PROZAC) 40 mg capsule Take 1 capsule by mouth once daily. conjugated estrogens (PREMARIN) vaginal cream Use 1 g vaginally two times a week. multivitamin (MULTIPLE VITAMINS) tablet Take by mouth. loratadine (CLARITIN) 10 mg tablet Take by mouth. acetaminophen (TYLENOL EXTRA STRENGTH) 500 mg tablet Take 2 tablets by mouth every 6 hours as needed for pain. MELATONIN ORAL Take 6 mg by mouth daily at bedtime. DAILY MULTIVITAMIN TAB Take one(1) tablet daily. ALLERGIES No Known Allergies FAMILY HISTORY Problem Relation Age of Onset Stroke Father at 85, healthy til then Breast Cancer Maternal Aunt roughly 40 Colon Cancer Other none Coronary Artery Disease Other none Diabetes Other none PAST SURGICAL HISTORY 2001 +/-: COLONOSCOPY Comment: DR. ABEL, [facility], NORMAL No date: LIG/TRNSXJ FLP TUBE ABDL/VAG APPR UNI/BI Comment: Tubal ligation she was 36 years old Social Hx: lives with @Alcohol Use: Not on file Tobacco Use: Low Risk (04/14/2024) Patient History Smoking Tobacco Use: Never Smokeless Tobacco Use: Never Passive Exposure: Not on file 04/14/24 1328 BP: 174/76 Pulse: 66 MoCA: Visuospatial: 10/13 Namin/3 Attention: 01/14 Language: 1 Abstract: 0/2 Delayed recall: 0/5 Orientation: 10/14 Was very upset during testing Neurologic Exam Cognitive and Language: Alert and answered questions appropriately. Language was fluent. Cranial Nerves: Extraocular movements were full with no diplopia or nystagmus. Facial strength was symmetric. Motor: Moves all four extremities Coordination: Normal finger to nose and heel to lee testing bilaterally. Normal gait. Labs: Lab Results Component Value Date WBC 9.83 04/07/2023 HCT 39.4 04/07/2023 MCV 92.9 04/07/2023 PLT 410 (H) 04/07/2023 Lab Results Component Value Date HBA1C 5.9 02/02/2024 HBA1C 6.1 08/27/2023 HBA1C 5.7 06/13/2022 HBA1C 6.3 01/21/2018 HBA1C 6.0 02/17/2017 HBA1C 6.0 02/23/2016 HBA1C 6.2 06/18/2013 Cholesterol, Total Date Value Ref Range Status 08/22/2023 195 <200 mg/dL Final Comment: <200 mg/dL, Desirable 200-239 mg/dL, Borderline high >239 mg/dL, High HDL Cholesterol Date Value Ref Range Status 08/22/2023 69 >39 mg/dL Final Comment: 40-59 mg/dL, Acceptable >59 mg/dL, High: Negative risk factor for coronary heart disease <40 mg/dL, Low: Positive risk factor for coronary heart disease LDL Cholesterol Date Value Ref Range Status 08/22/2023 98 <100 mg/dL Final Comment: <100 mg/dL, Optimal 100-129 mg/dL, Near optimal/above optimal 130-159 mg/dL, Borderline high 160-189 mg/dL, High >189 mg/dL, Very high Secondary prevention optimal LDL Cholesterol levels are recommended to be < 70 mg/dL Triglyceride Date Value Ref Range Status 08/22/2023 140 <150 mg/dL Final Comment: <150 mg/dL, Normal 150-199 mg/dL, Borderline high 200-499 mg/dL, High >499 mg/dL, Very high Lab Results Component Value Date TSH 2.050 04/07/2023 TSH 3.850 03/23/2012 Lab Results Component Value Date B12 [id number] 04/07/2023 Radiology: MRI Head/Brain - Last 2 Impressions MRI BRAIN WO IVCON Exam End: 05/22/2023 9:51 AM (Final result) Impression: IMPRESSION: * No evidence of an acute intracranial process or intracranial mass. * Severe temporal predominant volume loss. Quantitative assessment as above.... MRI BRAIN WO IVCON Exam End: 07/25/2022 2:01 PM (Final result) Impression: IMPRESSION: No evidence of an acute intracranial infarction. Volume loss and chronic small vessel ischemic changes.... This note was dictated using [employer] speech recognition software and may contain some errors that were a result of the program not accurately transcribing what was dictated, despite efforts to make corrections. Note that unless urgent, test and MRI results will be discussed at next follow- up visit. PROMIS (Patient-Reported Outcomes Measurement Information System) is a set of person-centered measures that evaluates and monitors physical, social, and emotional health. It can be used with the general population and with individuals living with chronic conditions. PROMIS 10: PHYSICAL AND MENTAL HEALTH: 12/16/2018 PHQ-9 PHQ-2 Score 5 PHQ-9 Score 8 Medical Decision Making: Medical Decision Making Level: 1 - N/A I spent a total of 45 minutes on the date of the service which included preparing to see the patient, [id number] patient care, completing clinical documentation, obtaining and/or reviewing separately obtained history, performing a medically appropriate examination, counseling and educating the pat ient/family/caregiver, and ordering medications, tests, or procedures. documented in this encounterJ.[facility]. [facility] NoteHNO ID: [id number] Author: HERMAN PALUMBO MD Service: ? Author Type: Physician Type: Progress Notes Filed: 04/07/2024 12:11 Note Text: Acid Wash Operator offered: Patient declines. Willem Evans is a 78 year old No obstetric history on file. who presents today for pessary insertion She wears a size 2 short-stem Gellhorn pessary. She returns today with no complaints. The Pessary fell out a few days ago- otherwise before that no problems- like bleeding or discharge, no pain. EXAM: BP 142/70 Wt 69.4 kg (153 lb) pleasant, well developed, well nourished, in no apparent distress Pelvic: Bartholin's, urethra and [place]'s glands were normal. no erythema, no ulcerations, and no vaginal discharge. The pessary was cleaned a new size 2 short-stem Gellhorn was inserted without difficulty The pessary was inserted, patient tolerated the procedure well and the device is comfortable. (N81.2) Cervical prolapse (primary encounter diagnosis) (N81.4) Cystocele with prolapse (Z46.89) Pessary maintenance RTO 3 mo for pessary maintenance I spent a total of 20 minutes on the date of the service which included preparing to see the patient, [id number] patient care, completing clinical documentation, obtaining and/or reviewing separately obtained history, performing a medically appropriate examination, and counseling and educating the patient/family/caregiver Herman Almanzar MD .[facility]08-28-2024 History of Present illness Narrative* Herman Palumbo MD - 04/07/2024 11:44 AM EDT Acid Wash Operator offered: Patient declines. Willem Evans is a 78 year old No obstetric history on file. who presents today for pessary insertion She wears a size 2 short-stem Gellhorn pessary. She returns today with no complaints. The Pessaryfell out a few days ago- otherwise before that no problems- like bleeding or discharge, no pain. EXAM: BP 142/70 Wt 69.4 kg (153 lb) pleasant, well developed, well nourished, in no apparent distress Pelvic: Bartholin's, urethra and [place]'s glands were normal. no erythema, no ulcerations, and no vaginal discharge. The pessary was cleaned a new size 2 short-stem Gellhorn was inserted without difficulty The pessary was inserted, patient tolerated the procedure well and the device is comfortable. (N81.2) Cervical prolapse (primary encounter diagnosis) (N81.4) Cystocele with prolapse (Z46.89) Pessary maintenance RTO 3 mo for pessary maintenance I spent a total of 20 minutes on the date of the service which included preparing to see the patient, [id number] patient care, completing clinical documentation, obtaining and/or reviewing separately obtained history, performing a medically appropriate examination, and counseling and educating the patient/family/caregiver Herman Almanzar MD . documented in this encounterJ.W. [facility]08-23-[facility] Telephone encounter Note * Telephone Encounter - Julita Bermudez RN - 04/02/2024 12:49 PM EDT Pt's states Pt does not have any issues with emptying her bladder. Appt made for 04/07 with DM for pessary placement. Memory issues are not new-Has been seeing neurology since 08/19/23. Julita Bermudez RN [facility]08-[facility]-2024 Miscellaneous Notes* Telephone Encounter - Julita Bermudez RN - 04/02/2024 12:49 PM EDT Pt's states Pt does not have any issues with emptying her bladder. Appt made for 04/07 with DM for pessary placement. Memory issues are not new-Has been seeing neurology since 08/19/23. Julita Bermudez RN * Telephone Encounter - Ashlie Lovett APRN.CNP - 04/02/2024 12:42 PM EDT If memory problems are new/acute, needs to be evaluated in ER. Ashlie Lovett APRN.[employer] * Telephone Encounter - Robyn Abraham MD - 04/02/2024 12:36 PM EDT Is she having any problems with emptying her bladder? Otherwise she does need to be seen today. A routine appointment can be made. * Telephone Encounter - Julita Bermudez RN - 04/02/2024 12:31 PM EDT Pt's calls stating her pessary has fallen out and he wants to know what he should do. States he is able to bring her in the office today if possible. He states she is having memory problems and asks that we call his cell phone [phone]. Please advise.Julita Bermudez RN documented in this encounterJ.W. [facility]08-23-2024 Telephone encounter Note * Telephone Encounter - Ashlie Lovett APRN.CNP - 04/02/2024 12:42 PM EDT If memory problems are new/acute, needs to be evaluated in ER. Ashlie Lovett APRN.[employer] [facility] Work Phone: 1(879) 569-574208-23-2024 Telephone encounter Note* Telephone Encounter - Robyn Abraham MD - 04/02/2024 12:36 PM EDT Is she having any problems with emptying her bladder? Otherwise she does need to be seen today. A routine appointment can be made. [facility] Work Phone: 1(981) 572-778708-23-2024 Telephone encounter Note* Telephone Encounter - Julita Bermudez RN - 04/02/2024 12:31 PM EDT Pt's calls stating her pessary has fallen out and he wants to know what he should do. States he is able to bring her in the office today if possible. He states she is having memory problems and asks that we call his cell phone [phone]. Please advise.Julita Bermudez RN [facility]08-02-2024 History of Present illness Narrative* Citlaly العراقي MD - 03/12/2024 2:20 PM EDT Chief Complaint Patient presents with: Hospital Follow Up HPI Willem Evans is a 78 year old female who presents here today for a Hospital follow up. Pt here today with her spouse for an ED visit. Pt seen in [facility] ED on 02/28/24 and 03/08/24. Initially diagnosed with compression fracture spine, then had GI bleeding after taking Celebrex. Spouse is inquiring about a sleeping pill to help her sleep through the night. Pt is very uncomfortable and not sleeping well. Does have hx of dementia. Pt is still in a lot of pain and needs something done now for the pain. Using Tylenol, but this is not effective. She was given oxycodone in ER but paul caused constipation. Spouse is not sure what route they need to go. Still having dark black stool, pale in color and feeling very unwell. No vomiting of blood any longer. Pt reports she has chronic back issues and has gone through issues with her back in the past. Asking if she needs to have upper GI and Colonoscopy done. She is currently taking Protonix 40 mg bid and Zofran 4 mg prn. Not able to keep much down. Has been off her routine medications for severaldays which is very concerning for him. [facility] ED visit from 03/08/24: Narrative: Patient is a 78-year-old female from home with past medical history of anxiety and depression and as well as IBS and dementia. She was seen in the ER on February 27 secondary to mechanical fall and was found to have a thoracic and lumbar compression fracture. She was placed on Percocet and discharged home with family. Family states that she was recently placed on Celebrex by the family physician secondary to persistent pain. Patient went to bed normally and then awoke this morning covered in emesisthat appeared dark/coffee-ground in nature. also states he noticed some dark stools recently. Family reports that patient does appear paler in color than her baseline. With concern for internal bleeding she was brought in for evaluation. Medical decision making narrative: Patient arrived to the ER hemodynamically stable but family reported coffee- ground emesis. She was recently placed on Celebrex which could be the cause of this. Family states that there is no remote history of alcohol abuse or gastritis. With concern for internal bleeding basic labs were obtained and her hemoglobin is low at 9.3 which is down from a few years ago at 12 but this is well above a transfusion value of 7. The patient's BUN is elevated at 55 which also correlates with upper GI bleed.Stool however is not melanotic. Secondaryto concern for GI bleed patient was given IV fluids as well as a Protonix bolus and drip. She is hemodynamically stable and does not need vasopressors or airway protection but with concern for active internal bleeding a CTA will be obtained. Plan of care will be to potentially admit to the hospital for furtherworkup after laboratory studies and CT report are resulted. CTA is still pending and therefore patient will be signed out to the day physician Dr. James ADDENDUM by Dr. Jared James DO on 03/08/24 at 0925 Patient's case was signed out to me by previous provider to follow-up on her CTA abdomen pelvis. Patient CBC was significant for leukocytosis of 14,000, hemoglobin is noted to be 9.3 which was down from a previous blood draw but does appear to be stable, platelet count noted to be normal at 443.Patient INR normal at 1, PT normal at13.4. Patient's sodium normal 140, potassium normal 3.9, creatinine normal at 0.79 her BUN is elevated when compared to previous blood draws at 55. Patient'sglucose was 189., Lactic acid normal at 2, AST and ALT were 1322 respectively. Patient's urinalysis did not reveal any evidence of infection. Patient CTA abdomen pelvis with contrast was reviewed and showed no definitive site of active GI bleeding. Suggestion of wall thickening ascending through the transverse colon likely nondistention colitis likely likely. Colonic diverticulosis without evidence of diverticulitis. There is a moderate size hiatal hernia which is increased from prior study. Patient has a marked L1 vertebral body compression fracture with increased vertebral body height loss and kyphosis compared to prior study uncertain age. Did discuss the results with the family members at bedside and daughter works with neurosurgery at [facility] they would like to take the patient home. Patient has remained hemodynamically stable during her observation period here and has not had any more episodes of coffee-ground emesis. Daughter states thatshe will have her follow-up with [facility] neurosurgery team for her compression fracture. They were encouraged to avoid any NSAID use in the futuregoing forward. They are encouragedto return with persistent vomiting black tarry stools or any other concerns. They are agreeable with this plan and wouldlike to go home she was discharged home in stable condition. Patient was sent aprescription for Protonix twice a day and was also encouraged to follow-up with a auricular detoxification specialist. Imaging 02/28/24: RAD/Knee 4 or More Views IMPRESSION: Negative right knee x-rays. RAD/Thoracic Spine 2 Views IMPRESSION: 1. Mild levoscoliosis. 2. Approximately 20% loss of height of T8 that appears old. Consider CT if clinically indicated. 3. Marked compression fracture of L1 only seen on the AP view. Also appears old. Consider CT if clinically indicated. Electronically Signed: Howie Brand MD at 5:16 EDT Reading Location ID and Past medical history, appointments, medications, allergies reviewed. Previous Medical History PAST MEDICAL HISTORY No date: Allergic rhinitis, cause unspecified No date: Generalized anxiety disorder Comment: with social component No date: Irritable bowel syndrome Comment: mainly constipation No date: Osteoporosis, unspecified Comment: per prior DEXA times 2 No date: Overweight(278.02) Previous Surgical History PAST SURGICAL HISTORY 2001 +/-: COLONOSCOPY Comment: DR. ABEL, [facility], NORMAL No date: LIG/TRNSXJ FLP TUBE ABDL/VAG APPR UNI/BI Comment: Tubal ligation she was 36 years old Family History FAMILY HISTORY Problem Relation Age of Onset Stroke Father at 85, healthy til then Breast Cancer Maternal Aunt roughly 40 Colon Cancer Other none Coronary Artery Disease Other none Diabetes Other none Patient Allergies ALLERGIES No Known Allergies Current Medications Current Outpatient Medications on File Prior to Visit Medication Sig LORazepam (ATIVAN) 0.5 mg Take 1 tablet by mouth at bedtime as needed (Anxiety) for up to 30 days. memantine (NAMENDA) 10 mg tablet Take 1 tablet by mouth two times a day. busPIRone (BUSPAR) 10 mg tablet Take 1 tablet by mouth three times a day. FLUoxetine (PROZAC) 20 mg capsule Take 1 capsule by mouth once daily. Take along with 40 mg pill for a total of 60 mg daily FLUoxetine (PROZAC) 40 mg capsule Take 1 capsule by mouth once daily. conjugated estrogens (PREMARIN) vaginal cream Use 1 g vaginally two times a week. multivitamin (MULTIPLE VITAMINS) tablet Take by mouth. loratadine (CLARITIN) 10 mg tablet Take by mouth. naproxen (NAPROSYN) 500 mg tablet TWICE A DAY (Patient not taking: Reported on 02/09/2024) multivitamin (MULTIPLE VITAMINS) tablet DAILY (Patient not taking: Reported on 08/01/2023) PREMARIN vaginal cream USE 1 GRAM VAGINALLY TWICE WEEKLY. (Patient not taking: Reported on 08/01/2023) acetaminophen (TYLENOL EXTRA STRENGTH) 500 mg tablet Take 2 tablets by mouth every 6 hours as needed for pain. MELATONIN ORAL Take 6 mg by mouth daily at bedtime. DAILY MULTIVITAMIN TAB Take one(1) tablet daily. No current facility-administered medications on file prior to visit. Social History Social History Tobacco Use Smoking status: Never Smokeless tobacco: Never Tobacco comments: Goes by Willem Vaping Use Vaping Use: Never used Substance Use Topics Alcohol use: No Drug use: No EXAM: There were no vitals taken for this visit. General Appearance: Mild discomfort with back pain, feels nauseated at times; alert. Back:tenderness lower thoracic upper lumbar area Lungs: Lungs clear to auscultation. No wheezing, rhonchi, rales.. Heart: RRR without murmur, gallop, or rubs. No ectopy. Health Maintenance List Bone Density Screening due on 11/24/2010 DTaP,Tdap,Td Vaccine(1 - Tdap) due on 10/30/2024 RSV Vaccine(1 - 1-dose 60+ series) due on 10/30/2024 Shingrix Vaccine(1 of 2) due on 10/30/2024 Covid-19 Vaccine(4 - season) due on 10/30/2024 Influenza Vaccine(1) due on 04/11/2024 Diabetes Screening due on 02/01/2027 Advance Directive Discussion Completed Hepatitis C Screening Completed Pneumococcal Vaccine: 65+ Completed Mammogram Screening Discontinued Colorectal Cancer Screening Discontinued Data reviewed [facility] records ASSESSMENT/PLAN: 1. Compression fracture of L1 vertebra with routine healing, subsequent encounter - ICD9: V54.17, ICD10: S32.010D (primary diagnosis) Will try tramadol for pain control. Discussed that she may need to return to ER and consider inpt pain control - TRAMADOL 50 MG TABLET 2. Dementia without behavioral disturbance (HCC) - ICD9: 294.20, ICD10: F03.90 3. Generalized anxiety disorder - ICD9: 300.02, ICD10: F41.1 4. Gastrointestinal hemorrhage, unspecified gastrointestinal hemorrhage type - ICD9: 578.9, ICD10: K92.2 5. Chronic insomnia - ICD9: 780.52, ICD10: F51.04 - TRAZODONE 50 MG TABLET Follow up prn Medical Decision Making: Problems: Moderate: 1+ chronic illnesses with change and New problem with uncertain prognosis Data: Unique source(s) for external note(s) reviewed: 1 Risk: Moderate: Drug management Medical Decision Making Level: 4 - Moderate Citlaly العراقي MD documented in this encounterJ.W. [facility] NoteHNO ID: [id number] Author: CITLALY العراقي MD Service: ? Author Type: Physician Type: Progress Notes Filed: 03/12/2024 16:29 Note Text: Chief Complaint Patient presents with: Hospital Follow Up HPI Willem Evans is a 78 year old female who presents here today for a Hospital follow up. Pt here today with her spouse for an ED visit. Pt seen in [facility] ED on 02/28/24 and 03/08/24. Initially diagnosed with compression fracture spine, then had GI bleeding after taking Celebrex. Spouse is inquiring about a sleeping pill to help her sleep through the night. Pt is very uncomfortable and not sleeping well. Does have hx of dementia. Pt is still in a lot of pain and needs something done now for the pain. Using Tylenol, but this is not effective. She was given oxycodone in ER but paul caused constipation. Spouse is not sure what route they need to go. Still having dark black stool, pale in color and feeling very unwell. No vomiting of blood any longer. Pt reports she has chronic back issues and has gone through issues with her back in the past. Asking if she needs to have upper GI and Colonoscopy done. She is currently taking Protonix 40 mg bid and Zofran 4 mg prn. Not able to keep much down. Has been off her routine medications for several days which is very concerning for him. [facility] ED visit from 03/08/24: Narrative: Patient is a 78-year-old female from home with past medical history of anxiety and depression and as well as IBS and dementia. She was seen in the ER on February 27 secondary to mechanical fall and was found to have a thoracic and lumbar compression fracture. She was placed on Percocet and discharged home with family. Family states that she was recently placed on Celebrex by the family physician secondary to persistent pain. Patient went to bed normally and then awoke this morning covered in emesis that appeared dark/coffee-ground in nature. also states he noticed some dark stools recently. Family reports that patient does appear paler in color than her baseline. With concern for internal bleeding she was brought in for evaluation. Medical decision making narrative: Patient arrived to the ER hemodynamically stable but family reported coffee-ground emesis. She was recently placed on Celebrex which could be the cause of this. Family states that there is no remote history of alcohol abuse or gastritis. With concern for internal bleeding basic labs were obtained and her hemoglobin is low at 9.3 which is down from a few years ago at 12 but this is well above a transfusion value of 7. The patient's BUN is elevated at 55 which also correlates with upper GI bleed. Stool however is not melanotic. Secondaryto concern for GI bleed patient was given IV fluids as well as a Protonix bolus and drip. She is hemodynamically stable and does not need vasopressors or airway protection but with concern for active internal bleeding a CTA will be obtained. Plan of care will be to potentially admit to the hospital for furtherworkup after laboratory studies and CT report are resulted. CTA is still pending and therefore patient will be signed out to the day physician Dr. James ADDENDUM by Dr. Jared James DO on 03/08/24 at 0925 Patient's case was signed out to me by previous provider to follow-up on her CTA abdomen pelvis. Patient CBC was significant for leukocytosis of 14,000, hemoglobin is noted to be 9.3 which was down from a previous blood draw but does appear to be stable, platelet count noted to be normal at 443. Patient INR normal at 1, PT normal at13.4. Patient's sodium normal 140, potassium normal 3.9, creatinine normal at 0.79 her BUN is elevated when compared to previous blood draws at 55. Patient'sglucose was 189., Lactic acid normal at 2, AST and ALT were 1322 respectively. Patient's urinalysis did not reveal any evidence of infection. Patient CTA abdomen pelvis with contrast was reviewed and showed no definitive site of active GI bleeding. Suggestion of wall thickening ascending through the transverse colon likely nondistention colitis likely likely. Colonic diverticulosis without evidence of diverticulitis. There is a moderate size hiatal hernia which is increased from prior study. Patient has a marked L1 vertebral body compression fracture with increased vertebral body height loss and kyphosis compared to prior study uncertain age. Did discuss the results with the family members at bedside and daughter works with neurosurgery at [facility] they would like to take the patient home. Patient has remained hemodynamically stable during her observation period here and has not had any more episodes of coffee-ground emesis. Daughter states thatshe will have her follow-up with [facility] neurosurgery team for her compression fracture. They were encouraged to avoid any NSAID use in the futuregoing forward. They are encouraged to return with persistent vomiting bruno (more content not included)...[facility]07-24-2024 Telephone encounter Note* Telephone Encounter - Zofia Bower RN - 03/03/2024 9:19 AM EDT The patient has been identified by name and date of : Yes Caregiver verified no other encounters exist for this prescription request: Yes Caregiver confirmed with patient/requestor that no other refills are due, in the near future, with this provider at this time: Yes The last office visit in the department: 12/10/2023 Does the patient have a future office visit with this provider/department: 04/13/2024 Requested Prescriptions Pending Prescriptions Disp Refills memantine (NAMENDA) 10 mg tablet 180 tablet 0 Sig: Take 1 tablet by mouth two times a day. Zofia Bower RN March 03, 2024 9:20 AM [facility]07-24-[facility]24 Miscellaneous Notes* Telephone Encounter - Zofia Bower RN - 03/03/2024 9:19 AM EDT The patient has been identified by name and date of : Yes Caregiver verified no other encounters exist for this prescription request: Yes Caregiver confirmed with patient/requestor that no other refills are due, in the near future, with this provider at this time: Yes The last office visit in the department: 12/10/2023 Does the patient have a future office visit with this provider/department: 04/13/2024 Requested Prescriptions Pending Prescriptions Disp Refills memantine (NAMENDA) 10 mg tablet 180 tablet 0 Sig: Take 1 tablet by mouth two times a day. Zofia Bower RN March 03, 2024 9:20 AM documented in this encounterJ.W. Ruby [facility]07-22-2024 Telephone encounter Note * Telephone Encounter - Ani Núñez MA - 03/01/2024 8:00 PM EDT Pt [place] notified. [facility]07-[facility] Miscellaneous Notes* Telephone Encounter - Ani Núñez MA - 03/01/2024 8:00 PM EDT Pt [place] notified. * Telephone Encounter - Citlaly العراقي MD - 03/01/2024 7:14 PM EDT Ok fro Celebrex as ordered for pain Citlaly العراقي MD * Telephone Encounter - Gustavo Marin MA - 03/01/2024 4:30 PM EDT Pt given Percocet on 02/28/24 #14 to last 1 week. Pt is also taking Ativan 0.5 mg in the evening dueto agitation. Gustavo Marin MA * Telephone Encounter - Ani Núñez MA - 03/01/2024 2:05 PM EDT Er report in scanned doc. Ani Núñez MA * Telephone Encounter - Robyn Romo - 03/01/2024 1:24 PM EDT Pt was in ER on [facility] . Spouse called to schedule hospital follow up. Wanted to see Dr. العراقي so she is not scheduled until 03/12/24. He wants to know if she could get anything for pain. She has a couple of days left of the Oxycodone given from the ER. documented in this encounterJ.W. Ruby [facility]07-22-2024 Telephone encounter Note * Telephone Encounter - Citlaly العراقي MD - 03/01/2024 7:14 PM EDT Ok fro Celebrex as ordered for pain Citlaly العراقي MD [facility]07-[facility] Telephone encounter Note* Telephone Encounter - Gustavo Marin MA - 03/01/2024 4:30 PM EDT Pt given Percocet on 02/28/24 #14 to last 1 week. Pt is also taking Ativan 0.5 mg in the evening dueto agitation. Gustavo Marin MA [facility]07-22-2024 Telephone encounter Note* Telephone Encounter - Ani Núñez MA - 03/01/2024 2:05 PM EDT Er report in scanned doc. Ani Núñez MA [facility]07-[facility] Telephone encounter Note* Telephone Encounter - Robyn Romo - 03/01/2024 1:24 PM EDT Pt was in ER on [facility] 02/26-. Spouse called to schedule hospital follow up. Wanted to see Dr. العراقي so she is not scheduled until 03/12/24. He wants to know if she could get anything for pain. She has a couple of days left of the Oxycodone given from the ER. [facility] Work Phone: [phone]) 234-859107-10-2024 Telephone encounter Note* Telephone Encounter - Yun Jackson APRN.CNP - 02/18/2024 6:59 PM EDT The following approved medication requests have been transmitted electronically. Requested Prescriptions Signed Prescriptions Disp Refills LORazepam (ATIVAN) 0.5 mg 30 tablet 0 Sig: Take 1 tablet by mouth at bedtime as needed (Anxiety) for up to 30 days. Authorizing Provider: YUN JACKSON APRN.CNP PDMP website checked and validated. All prescriptions have been APPROPRIATELY filled. No suspiciousactivity was identified. 02/18/2024 by Yun Jackson APRN.CNP [facility]07-10-2024 Miscellaneous Notes* Telephone Encounter - Yun Jackson APRN.CNP - 02/18/2024 6:59 PM EDT The following approved medication requests have been transmitted electronically. Requested Prescriptions Signed Prescriptions Disp Refills LORazepam (ATIVAN) 0.5 mg 30 tablet 0 Sig: Take 1 tablet by mouth at bedtime as needed (Anxiety) for up to 30 days. Authorizing Provider: YUN JACKSON APRN.CNP PDMP website checked and validated. All prescriptions have been APPROPRIATELY filled. No suspiciousactivity was identified. 02/18/2024 by Yun Jackson APRN.CNP * Telephone Encounter - Cris Longoria RN - 02/18/2024 4:12 PM EDT Patient's calls and states that lorazapam has been working well for patient's agitation andanxiety at night. asking if provider can send in a refill of medication to [facility]. Please review and advise, Cris Longoria RN documented in this encounterJ.W. [facility]07-10-2024 Telephone encounter Note * Telephone Encounter - Cris Longoria RN - 02/18/2024 4:12 PM EDT Patient's calls and states that lorazapam has been working well for patient's agitation andanxiety at night. asking if provider can send in a refill of medication to [facility]. Please review and advise, Cris Longoria RN [facility]07-01-2024 History of Present illness Narrative* Yun Jackson APRN.ANALYST COMPETITIVE INTELLIGENCE - 02/09/2024 1:40 PM EDT This is a 78 year old female who presents today with: Patient presents with: Follow Up: 3 month follow up HISTORY OF PRESENT ILLNESS: Willem Evans is a 78 year old female. Patient presents with: Follow Up: 3 month follow up 3 month follow up LABS DUE Prediabetes: A1C went from 6.1 to 5.9, refers that they have been watching diet. No hypoglycemic episodes. Denies increased thirst or urination. No difficulty with vision. Anxiety/depression: Taking Prozac 40 mg plus an additional 20 mg. Taking BuSpar 10 mg three times daily. refers that some days she seems more anxious, usually in the evening after dinner. Sleeping well. No Si/Hi. Memory: Some worsening symptoms in the evening. Following with Neurology, last seen in June. Started on Aricept and recommend daily ASA for dementia. Stopped Aricept and started Namenda at last office visit. Still some agitation at night time, seems to come and go. Memory recall, refersthat she forgot that she had an appointment today. Refers she feels well. Not aware that she has memory issues. PAST MEDICAL HISTORY: PAST MEDICAL HISTORY Diagnosis Date Allergic rhinitis, cause unspecified Generalized anxiety disorder with social component Irritable bowel syndrome mainly constipation Osteoporosis, unspecified per prior DEXA times 2 Overweight(278.02) PAST SURGICAL HISTORY Procedure Laterality Date COLONOSCOPY [address] ABEL, [facility], [facility] LIG/TRNSXJ FLP TUBE ABDL/VAG APPR UNI/BI Tubal ligation she was 36 years old ALLERGIES Patient has no known allergies. MEDICATIONS Current Outpatient Medications Medication Sig memantine (NAMENDA) 10 mg tablet Take 1 tablet by mouth two times a day. busPIRone (BUSPAR) 10 mg tablet Take 1 tablet by mouth three times a day. donepezil (ARICEPT) 5 mg tablet Take 1 tablet by mouth daily at bedtime. (Patient not taking: Reported on 10/31/2023) FLUoxetine (PROZAC) 20 mg capsule Take 1 capsule by mouth once daily. Take along with 40 mg pill for a total of 60 mg daily FLUoxetine (PROZAC) 40 mg capsule Take 1 capsule by mouth once daily. conjugated estrogens (PREMARIN) vaginal cream Use 1 g vaginally two times a week. multivitamin (MULTIPLE VITAMINS) tablet Take by mouth. loratadine (CLARITIN) 10 mg tablet Take by mouth. naproxen (NAPROSYN) 500 mg tablet TWICE A DAY multivitamin (MULTIPLE VITAMINS) tablet DAILY (Patient not taking: Reported on 08/01/2023) PREMARIN vaginal cream USE 1 GRAM VAGINALLY TWICE WEEKLY. (Patient not taking: Reported on 08/01/2023) acetaminophen (TYLENOL EXTRA STRENGTH) 500 mg tablet Take 2 tablets by mouth every 6 hours as needed for pain. MELATONIN ORAL Take 6 mg by mouth daily at bedtime. DAILY MULTIVITAMIN TAB Take one(1) tablet daily. ASPIRIN 81 MG TAB Take one(1) tablet daily. (Patient not taking: Reported on 10/27/2023) No current facility-administered medications for this visit. FAMILY HISTORY Problem Relation Age of Onset Stroke Father at 85, healthy til then Breast Cancer Maternal Aunt roughly 40 Colon Cancer Other none Coronary Artery Disease Other none Diabetes Other none Social History Tobacco Use Smoking status: Never Smokeless tobacco: Never Tobacco comments: Goes by Willem Vaping Use Vaping Use: Never used Substance Use Topics Alcohol use: No Drug use: No REVIEW OF SYSTEMS GENERAL: No weight loss, malaise or fevers/chills HEENT: Negative for frequent or significant headaches, No changes in hearing or vision. NECK: Negative for lumps, goiter, pain and significant neck swelling RESPIRATORY: Negative for cough, hemoptysis, wheezing, dyspnea or shortness of breath CARDIOVASCULAR: Negative for chest pain, leg swelling, orthopnea, or palpitations GI: No nausea, vomiting, or diarrhea/constipation. No hematochezia/melena. No heartburn or reflux symptoms. : No history of dysuria, frequency or incontinence MUSCULOSKELETAL: Negative for joint pain or swelling. SKIN: Negative for lesions, rash, and itching ENDOCRINE: Negative for cold or heat intolerance, polyuria, polydipsia and goiter NEURO: No history of headaches, syncope, paralysis, seizures or tremors MOOD: + Agitation and anxiety EXAM: BP 120/58 Pulse 84 Resp 16 Wt 73.5 kg (162 lb) SpO2 96% PHYSICAL EXAM: General Appearance: Well appearing, alert, in no acute distress, well-hydrated, well nourished.. Skin: Skin color, texture, turgor normal, no suspicious rashes or lesions. Head: Normocephalic, no masses, lesions, tenderness or abnormalities. Eyes: Anicteric sclera. Pupils are equally round and reactive to light. Extraocular movements are intact. . Lungs: Lungs clear to auscultation. No wheezing, rhonchi, rales.. Heart: RRR without murmur, gallop, or rubs. No ectopy. Extremities: No deformities, edema, skin discoloration, clubbing or cyanosis. Good capillary refill. . Peripheral Pulses: Normal, Capillary refill <2secs, strong peripheral pulses, Pulses palpable. Neurologic: Gait normal. Sensation grossly intact. ASSESSMENT/PLAN: 1. Prediabetes - ICD9: 790.29, ICD10: R73.03 (primary diagnosis) - Continue to work on lifestyle changes at home. - Get repeat labs in 6 months. - HEMOGLOBIN A1C 2. Agitation - ICD9: 307.9, ICD10: R45.1 - Add on Lorazepam 0.5 mg in the evenings/bedtime to help with agitation. - Will discuss agitation with Neurology. - LORAZEPAM 0.5 MG TABLET 3. Generalized anxiety disorder - ICD9: 300.02, ICD10: F41.1 - Continue with Prozac and buspar as prescribed. 4. Major depressive disorder, recurrent, in full remission (HCC) - ICD9: 296.36, ICD10: F33.42 - Same plan as #3 5. Dementia without behavioral disturbance (HCC) - ICD9: 294.20, ICD10: F03.90 - Continue to take current medication - Keep scheduled appointment with neurology. 6. Mixed hyperlipidemia - ICD9: 272.2, ICD10: E78.2 - Controlled - Counseled on healthy diet and regular exercise - COMPREHENSIVE METABOLIC PANEL - LIPID PANEL BASIC Follow up in 3 months or sooner as needed. Discussed treatment plan and patient voices understanding. Patient's questions answered appropriately. Medications and potential side effects were discussed and patient voices understanding. Yun Jackson APRN.CNP PDMP website checked and validated. All prescriptions have been APPROPRIATELY filled. No suspiciousactivity was identified. 02/09/2024 by Yun Jackson APRN.CNP This note was partially generated using [employer] voice recognition system. Note was reviewed for accuracy. There may be minor misspellings or grammar miscues with [employer] voice recognition. documented in this encounterJ.W. [facility]07-01-2024 Instructions* Patient Instructions* Yun Jackson APRN.CNP - 02/09/2024 1:38 PM EDT Continue to watch diet, decreased processed foods and sweets. Increase protein, veggies, and stay active. Keep scheduled appointments with neurology, office will discuss medications with them. May try Lorazepam 0.5 mg in the evening as needed for anxiety or agitation Get repeat fasting labs in 6 months 3 month follow up documented in this encounterJ.W. Ruby [facility]06-13-2024 History of Present illness Narrative* Herman Palumbo MD - 01/22/2024 3:12 PM EDT Acid Wash Operator offered: Patient declines. Willem Evans is a 78 year old No obstetric history on file. who presents today for pessary insertion/cleaning. She wears a size 2 short knob Gellhorn pessary. She returns today with no complaints. She has not had problems with the pessary. She has not had vaginal discharge. She has not had vaginalbleeding. EXAM: pleasant, well developed, well nourished, in no apparent distress Pelvic: Bartholin's, urethra and [place]'s glands were normal. The Gellhorn pessary was removed. Vaginal exam indicated no erythema, no ulcerations, and no vaginal discharge. The pessary was cleaned a NEW size 2 short-stem Gellhorn was inserted without difficulty The pessary was inserted, patient tolerated the procedure well and the device is comfortable. (N81.4) Cystocele with prolapse (primary encounter diagnosis) (Z46.89) Pessary maintenance New pessary placed today- RTO 3 mo or sooner if needed. I spent a total of 20 minutes on the date of the service which included preparing to see the patient, [id number] patient care, completing clinical documentation, obtaining and/or reviewing separately obtained history, performing a medically appropriate examination, and counseling and educating the patient/family/caregiver Herman Almanzar MD . documented in this encounterJ.W. [facility]05-01-2024 Instructions* Patient Instructions* Rosemarie Spears PA-C - 12/10/2023 11:23 AM EDT Continue taking aspirin 81mg daily for stroke prevention and follow with your primary care providerfor further management Namenda (increase to 10mg twice a day) Increase your physical activity and brain activity. Stay hydrated. Follow up in three months Resources: 1. The area Agency of A[facility] is called [facility]. Their website is www.dhad.org, and phone number is [phone]. Their Aging and Disability Resource Center phone number is [phone]. 2. The [employer] website has plenty of information about resources, what to expect, and tons of other information. Their website is https://www.alz.org/ and their help line is 231-173-9766. Their local website is alz.org/[email or web address], and local phone number is [phone]; 3. [facility] [employer] [facility] [place] also has a website with plenty of information, advice, rob help line: https://alzfdn.org/ and 914-468-9196 4. Family [employer]iver [employer] (web site: Caregiver.org) PRANAV Silva-- a secure online solution for quality information, support, and resources for family caregivers. Contact: Toll-free number: [phone] 5. Alzheimers.gov. Find Alzheimer disease and related dementias information, resources, research and more documented in this encounterJ.W. [facility] History of Present illness Narrative* Rosemarie Spears PA-C - 12/10/2023 11:14 AM EDT ESTABLISHED PATIENT VISIT Last visit: 08/19/23 ASSESSMENT/PLAN: 1. Dementia without behavioral disturbance, psychotic disturbance, mood disturbance, or anxiety, unspecified dementia severity, unspecified dementia type (HCC) - ICD9: 294.20, ICD10: F03.90 (primary diagnosis) 2. Memory loss - ICD9: 780.93, ICD10: R41.3 3. Lacunar infarction (HCC) - ICD9: 434.91, ICD10: I63.81 Patient presents with for follow-up for memory loss. Patient was started on Aricept 10 mg at last appointment, no improvement noted and patient noted to be slightly bradycardic today on arrival. Patient has been referred to stop this medication at this time, MoCA was , previous . No new symptoms or concerns. MRI of the brain did show hippocampus in the 1st percentile concerning for neurodegenerative process like Alzheimer's disease. Patient has neuropsychological testing scheduled for 09-19-2023 and encouraged to keep this appointment. At this time, discussed conservative measures that will improve memory function including increasing water intake, brain activities, physical activity, optimizing sleep. Patient and agree and understand. Will stop Aricept, did discuss Namenda and patient and family would like to try this medication. Discussed common side effects and patient is amenable. Will titrate up to 5 mg twice daily and reassess in 3 months. Patient's blood pressure was found to be elevated today, did discuss with patient and to follow-up with primary care for further blood pressure monitoring. Patient and agree and understand. Patient also with history of lacunar infarct, encouraged aspirin daily as well as management of comorbidities including blood pressure, cholesterol and diabetes. Patient and agreeable to treatment plan of care at this time, all questions were answered. Patient to follow-up in 2 to 3 months or sooner should any symptoms change or worsen. Rosemarie Spears PA-C CHIEF COMPLAINT: follow up HISTORY OF PRESENT ILLNESS: Willem Evans is a 78 year old female, There were no vitals taken for this visit. with a PMH significant for IBS, YEIMI and osteoporosis, depression, dementia. Last seen 08/19/23 for dementia. No change, titrated aricept up to 10mg. MoCA was , had neuropsych testing concerning for dementia. Stopped aricept due to bradycardia, started namenda 5mg bid. Patient presents with her for follow-up appointment for memory loss. Since last appointment, patient and report no change. Has been does note that maybe she remembers topics of conversation a bit more but not when they happened. No side effects with the Namenda, tolerating this well. notes that she still is able to cook for dinner every night, no issues getting herself ready or with any ADLs. Patient is not driving, lives at home with her . Typically starts increasing activity when it warms up but has not started to go on walks yet. Reads throughout the day and does a lot of crossword puzzles. No new concerns today, good water intake, good appetite, sleep is stable. notes some occasional irritation, but notes this is chronic for the last few years. No falls since last appointment. REVIEW OF SYSTEMS GENERAL:No weight loss, malaise or fevers. HEENT:Negative for frequent or significant headaches, No changes in hearing or vision, no nose bleeds or other nasal problems NECK:Negative for lumps, goiter, pain and significant neck swelling RESPIRATORY: Negative for cough, wheezing or shortness of breath. CARDIOVASCULAR: Negative for chest pain, leg swelling or palpitations. GASTROINTESTINAL: Negative for abdominal discomfort, blood in stools or black stools or change in bowel habits GENITOURINARY: No history of dysuria, frequency or incontinence MUSCULOSKELETAL: Negative for joint pain or swelling, back pain or muscle pain. NEUROLOGIC:Negative for focal numbness or weakness, headaches and dizziness or syncope, vision changes, speech/languag changes - EXCEPT that as per HPI above. SKIN:Negative for lesions, rash, and itching. PSYCHIATRIC: Negative for sleep disturbance, mood disorder and recent psychosocial stressors. HEMATOLOGIC/LYMPHATIC/IMMUNOLOGIC:Negative for prolonged bleeding, bruising easily or swollen nodes. ENDOCRINE: Negative for cold or heat intolerance, polyuria, polydipsia and goiter. The remainder of the ROS was reviewed and is negative. LAB/IMAGING: Those performed since patient's last visit have been reviewed. Neuropsych testing 09/19/23 Based on the results from the neuropsychological evaluation, the onset and course of cognitive concerns, as well as brain imaging, a diagnosis of dementia appears supported. Given the pattern of deficits with notable impacts to memory, cognitive flexibility, and aspects of language, this raises concern for Alzheimer's disease. Additional contributions include sleep inefficiency, pain, and mood symptoms MEDICATIONS: memantine (NAMENDA) 5 mg tablet 1 tablet twice daily busPIRone (BUSPAR) 10 mg tablet Take 1 tablet by mouth three times a day. FLUoxetine (PROZAC) 20 mg capsule Take 1 capsule by mouth once daily. Take along with 40 mg pill for a total of 60 mg daily FLUoxetine (PROZAC) 40 mg capsule Take 1 capsule by mouth once daily. conjugated estrogens (PREMARIN) vaginal cream Use 1 g vaginally two times a week. multivitamin (MULTIPLE VITAMINS) tablet Take by mouth. loratadine (CLARITIN) 10 mg tablet Take by mouth. naproxen (NAPROSYN) 500 mg tablet TWICE A DAY acetaminophen (TYLENOL EXTRA STRENGTH) 500 mg tablet Take 2 tablets by mouth every 6 hours as needed for pain. MELATONIN ORAL Take 6 mg by mouth daily at bedtime. DAILY MULTIVITAMIN TAB Take one(1) tablet daily. donepezil (ARICEPT) 5 mg tablet Take 1 tablet by mouth daily at bedtime. (Patient not taking: Reported on 10/31/2023) multivitamin (MULTIPLE VITAMINS) tablet DAILY (Patient not taking: Reported on 08/01/2023) PREMARIN vaginal cream USE 1 GRAM VAGINALLY TWICE WEEKLY. (Patient not taking: Reported on 08/01/2023) ASPIRIN 81 MG TAB Take one(1) tablet daily. (Patient not taking: Reported on 10/27/2023) HISTORIES PAST MEDICAL HISTORY Diagnosis Date Allergic rhinitis, cause unspecified Generalized anxiety disorder with social component Irritable bowel syndrome mainly constipation Osteoporosis, unspecified per prior DEXA times 2 Overweight(278.02) FAMILY HISTORY Problem Relation Age of Onset Stroke Father at 85, healthy til then Breast Cancer Maternal Aunt roughly 40 Colon Cancer Other none Coronary Artery Disease Other none Diabetes Other none SOCIAL HISTORY Social History Tobacco Use Smoking status: Never Smokeless tobacco: Never Tobacco comments: Goes by Willem Vaping Use Vaping Use: Never used Substance Use Topics Alcohol use: No Drug use: No PHYSICAL EXAMINATION BP 155/79 Pulse 65 Resp 18 Wt 72.9 kg (160 lb 12.8 oz) SpO2 99% MoCA: Visual-spatial 11/13 Namin/3 Attention: 01/14 Language: 09/13 Abstraction: 09/12 Delayed recall: Orientation: 12/14 GENERAL EXAM: General appearance: NAD, pleasant. HEENT: NC/AT, nasal congestion absent, no oral lesions, membranes moist. NECK: No masses, supple. Lungs: Breathing comfortably Extr: Moves all extremities without difficulty Skin: Cool to touch. No rash. Psych: Mood improved from previous, laughing and making jokes throughout appointment NEUROLOGICAL EXAM: General: Awake, alert, oriented x3 (person,place,time), speech fluent, no dysarthria; comprehension, naming, repetition intact. See MoCA above CN: PERRL, EOMI and without nystagmus, VFF to confrontation, facial sensation and strength are normal and symmetric, hearing is intact to finger rub bilaterally, palate and tongue movements are intact and symmetric. SCM and trapezius strength normal. Motor: Normal tone, bulk Reflexes: Not tested Coordination:No tremors. Sensation: No evidence of neglect. Gait: Narrow based and stable with normal stride and arm swing. Assessment and Plan: ASSESSMENT/PLAN: 1. Dementia without behavioral disturbance, psychotic disturbance, mood disturbance, or anxiety, unspecified dementia severity, unspecified dementia type (HCC) - ICD9: 294.20, ICD10: F03.90 (primary diagnosis) Patient with significant improvement in her MoCA today, previous was and today was . Didsignificant treatment in her mood as well, patient does suffer from depression and is on Prozac andBuSpar, likely impacting her memory. However, MRI of the brain was hippocampus in the 1st percentile, neuro psychological testing concerning for dementia process like Alzheimer's disease as well as 0/5 on MoCA for delayed recall concerning for neurodegenerative process like Alzheimer's disease. Discussed this at length with patient and her and they understand. Previously did not tolerate Aricept due to bradycardia so this was stopped. She started Namenda at last appointment and had somebenefit with this, no side effects. Would like to increase if tolerated. Will increase Namenda to 10 mg twice daily, discussed common side effects and patient is amenable. Weight is stable, patient is not driving, able to perform ADLs at home where she lives with her . Encouraged conservative therapy as well including increasing physical activity, cognitive activity. 2. Lacunar infarction (HCC) - ICD9: 434.91, ICD10: I63.81 No new neurologic symptoms, patient compliant with aspirin daily. Encouraged monitoring and maintaining risk factors with primary care. Patient has been agreeable to treatment plan of care at this time, questions were answered. Patientto follow-up in 3 months or sooner should any symptoms change or worsen. Rosemarie Spears PA-C I spent a total of 45 minutes on the date of the service which included preparing to see the patient, [id number] patient care, completing clinical documentation, obtaining and/or reviewing separately obtained history, performing a medically appropriate examination, counseling and educating the pat ient/family/caregiver, and ordering medications, tests, or procedures. This document has been created with the use of voice recognition technology. It may contain inaccuracies: (e.g. misspellings, inaccurate syntax or word sense) that have escaped review. documented in this encounterJ.W. [facility]04-10-2024 Miscellaneous Notes* Telephone Encounter - Masha Shore OCCA - 11/19/2023 9:39 AM EDT TC to patients spouse who verbalized understanding of medication sent to pharmacy. No further questions at this time. BETH Orosco * Telephone Encounter - Antonette Butcher LPN - 11/19/2023 8:50 AM EDT Patient has been identified by name and date of : Spouse phones for refill(s): Requested Prescriptions Pending Prescriptions Disp Refills memantine (NAMENDA) 5 mg tablet 180 tablet Si tablet twice daily Date of last office visit in primary care: 08/19/2023 Date of next office visit in primary care: 12/10/2023 asking for 90 day rx, has 4 pills left Please advise. Thank you. Antonette Butcher LPN. documented in this encounterJ.W. [facility]03-22-2024 History of Present illness Narrative* Yun Jackson APRN.[employer] - 10/31/2023 10:40 AM EDT This is a 78 year old female who presents today with: Patient presents with: Follow Up: 3 month follow up HISTORY OF PRESENT ILLNESS: Willem Evans is a 78 year old female. Patient presents with: Follow Up: 3 month follow up 3 month follow up Prediabetes: A1C 6.1, has not been watching diet. No hypoglycemic episodes. Denies increased thirstor urination. No difficulty with vision. Anxiety/depression: Taking Prozac 40 mg plus an additional 20 mg. Taking BuSpar 10 mg twice daily. refers that some days she seems more anxious, usually in the evening after dinner. Sleeping well. No Si/Hi. Memory: Memory has been stable. Some worsening symptoms in the evening. Following with Neurology, last seen in June. Started on Aricept and recommend daily ASA for dementia. Stopped Aricept and started Namenda at last office visit. Still some agitation at night time, seems to come and go. Refers she feels well. PAST MEDICAL HISTORY: PAST MEDICAL HISTORY Diagnosis Date Allergic rhinitis, cause unspecified Generalized anxiety disorder with social component Irritable bowel syndrome mainly constipation Osteoporosis, unspecified per prior DEXA times 2 Overweight(278.02) PAST SURGICAL HISTORY Procedure Laterality Date COLONOSCOPY [address] [facility], NORMAL LIG/TRNSXJ FLP TUBE ABDL/VAG APPR UNI/BI Tubal ligation she was 36 years old ALLERGIES Patient has no known allergies. MEDICATIONS Current Outpatient Medications Medication Sig memantine (NAMENDA) 5 mg tablet Take 1 tablet daily x1 week, then increase to 1 tablet twice daily donepezil (ARICEPT) 5 mg tablet Take 1 tablet by mouth daily at bedtime. busPIRone (BUSPAR) 10 mg tablet Take 1 tablet by mouth two times a day. FLUoxetine (PROZAC) 20 mg capsule Take 1 capsule by mouth once daily. Take along with 40 mg pill for a total of 60 mg daily FLUoxetine (PROZAC) 40 mg capsule Take 1 capsule by mouth once daily. conjugated estrogens (PREMARIN) vaginal cream Use 1 g vaginally two times a week. multivitamin (MULTIPLE VITAMINS) tablet Take by mouth. loratadine (CLARITIN) 10 mg tablet Take by mouth. naproxen (NAPROSYN) 500 mg tablet TWICE A DAY multivitamin (MULTIPLE VITAMINS) tablet DAILY (Patient not taking: Reported on 08/01/2023) PREMARIN vaginal cream USE 1 GRAM VAGINALLY TWICE WEEKLY. (Patient not taking: Reported on 08/01/2023) acetaminophen (TYLENOL EXTRA STRENGTH) 500 mg tablet Take 2 tablets by mouth every 6 hours as needed for pain. MELATONIN ORAL Take 6 mg by mouth daily at bedtime. DAILY MULTIVITAMIN TAB Take one(1) tablet daily. ASPIRIN 81 MG TAB Take one(1) tablet daily. (Patient not taking: Reported on 10/27/2023) No current facility-administered medications for this visit. FAMILY HISTORY Problem Relation Age of Onset Stroke Father at 85, healthy til then Breast Cancer Maternal Aunt roughly 40 Colon Cancer Other none Coronary Artery Disease Other none Diabetes Other none Social History Tobacco Use Smoking status: Never Smokeless tobacco: Never Tobacco comments: Goes by Willem [employer] Use Vaping Use: Never used Substance Use Topics Alcohol use: No Drug use: No REVIEW OF SYSTEMS GENERAL: No weight loss, malaise or fevers/chills HEENT: Negative for frequent or significant headaches, No changes in hearing or vision. NECK: Negative for lumps, goiter, pain and significant neck swelling RESPIRATORY: Negative for cough, hemoptysis, wheezing, dyspnea or shortness of breath CARDIOVASCULAR: Negative for chest pain, leg swelling, orthopnea, or palpitations GI: No nausea, vomiting, or diarrhea/constipation. No hematochezia/melena. No heartburn or reflux symptoms. : No history of dysuria, frequency or incontinence MUSCULOSKELETAL: Negative for joint pain or swelling. SKIN: Negative for lesions, rash, and itching ENDOCRINE: Negative for cold or heat intolerance, polyuria, polydipsia and goiter NEURO: No history of headaches, syncope, paralysis, seizures or tremors MOOD: + Anxiety/Irritation EXAM: BP 118/78 Pulse 87 Resp 16 Wt 72.6 kg (160 lb) SpO2 97% PHYSICAL EXAM: General Appearance: Well appearing, alert, in no acute distress, well-hydrated, well nourished. Skin: Skin color, texture, turgor normal, no suspicious rashes or lesions. Head: Normocephalic, no masses, lesions, tenderness or abnormalities. Eyes: Anicteric sclera. Extraocular movements are intact. Lungs: Lungs clear to auscultation. No wheezing, rhonchi, rales. Heart: RRR without murmur, gallop, or rubs. No ectopy. Extremities: No deformities, edema, skin discoloration, clubbing or cyanosis. Good capillary refill. Peripheral Pulses: Normal, Capillary refill <2secs, strong peripheral pulses, Pulses palpable. Neurologic: Gait normal. Sensation grossly intact. Latest Ref Rng 08/22/2023 Protein, Total 6.3 - 8.0 g/dL 7.4 Albumin 3.9 - 4.9 g/dL 4.4 Calcium 8.5 - 10.2 mg/dL 10.0 Bilirubin, Total 0.2 - 1.3 mg/dL 0.4 Alkaline Phosphatase 34 - 123 U/L 79 AST 13 - 35 U/L 27 ALT 7 - 38 U/L 22 Glucose 74 - 99 mg/dL 142 (H) BUN 7 - 21 mg/dL 11 Creatinine 0.58 - 0.96 mg/dL 0.67 Sodium 136 - 144 mmol/L 139 Potassium 3.7 - 5.1 mmol/L 3.9 Chloride 97 - 105 mmol/L 103 CO2 22 - 30 mmol/L 22 Anion Gap 9 - 18 mmol/L 14 eGFR >=60 mL/min/1.73m 90 Cholesterol, Total <200 mg/dL 195 Triglyceride <150 mg/dL 140 HDL Cholesterol >39 mg/dL 69 Non HDL Cholesterol <130 mg/dL 126 Fasting Time hrs 12 VLDL Cholesterol <30 mg/dL 28 TC:HDL Ratio <5.10 2.83 LDL Cholesterol <100 mg/dL 98 LDL:HDL Ratio <2.54 1.42 Hemoglobin A1C 4.3 - 5.6 % Estimated Average Glucose mg/dL Legend: (H) High ASSESSMENT/PLAN: 1. Prediabetes - ICD9: 790.29, ICD10: R73.03 (primary diagnosis) - Work on eating a low carb diet, discussed lifestyle changes in great detail. Provided diabetic booklet. - Get repeat labs in 3 months prior to office visit. - HGB A1C - COMP METABOLIC PANEL 2. Generalized anxiety disorder - ICD9: 300.02, ICD10: F41.1 - Increase BuSpar 10 mg 3 times daily. - BUSPIRONE 10 MG TABLET 3. Major depressive disorder, recurrent, in full remission (HCC) - ICD9: 296.36, ICD10: F33.42 - Stable, continue current medication. 4. Dementia without behavioral disturbance (HCC) - ICD9: 294.20, ICD10: F03.90 - Stable, continue with Namenda and keep scheduled appointments with neurology. 5. Mixed hyperlipidemia - ICD9: 272.2, ICD10: E78.2 - Controlled - Counseled on healthy diet and regular exercise Follow-up in 3 months or sooner as needed. Discussed treatment plan and patient voices understanding. Patient's questions answered appropriately. Medications and potential side effects were discussed and patient voices understanding. Yun Jackson APRN.CNP This note was partially generated using [employer] voice recognition system. Note was reviewed for accuracy. There may be minor misspellings or grammar miscues with [employer] voice recognition. documented in this encounterJ.W. [facility]03-22-2024 Instructions* Patient Instructions* Yun Jackson APRN.CNP - 10/31/2023 10:35 AM EDT Get repeat labs in 3 months prior to next visit. Try to work on eating a low carb diet, watch bread and pasta in the diet. Try to limit sweets such as cakes, cookies, and pies. Increase Buspar 10 mg three times daily to help with anxiety,. Keep scheduled appointments with neurology. Follow up in 3 months or sooner as needed. Condiments: Nataliia ordoñez documented in this encounterJ.W. Ruby [facility]03-18-2024 History of Present illness Narrative* Tamie Vale APRN.CNP - 10/27/2023 1:00 PM EDT Acid Wash Operator offered: Patient declines. Willem Evans is a 78 year old No obstetric history on file. who presents today with a pessary issue. She states that she was urinating and the pessary just fell out. She wears a size 2 short-stem Gellhorn pessary. She has not had vaginal discharge. She has not had vaginal bleeding. EXAM: pleasant, well developed, well nourished, in no apparent distress The pessary was cleaned a size 2 short-stem Gellhorn was inserted without difficulty The pessary was inserted, patient tolerated the procedure well and the device is comfortable. ASSESSMENT/PLAN: 1. Presence of pessary - ICD9: V45.89, ICD10: Z96.0 Follow up for routine pessary maintenance or as needed Taime Vale APRN.KARLEE Medical Decision Making: Problems: Low: Acute, uncomplicated illness or injury Risk: Low: Low risk from testing/treatment Medical Decision Making Level: 3 - Low documented in this encounterJ.W. Ruby [facility]03-12-2024 History of Present illness Narrative* Herman Palumbo MD - 10/21/2023 1:27 PM EDT Acid Wash Operator offered: Patient declines. Willem Evans is a 78 year old No obstetric history on file. who presents today for pessary insertion/cleaning. She wears a size 2 short-stem Gellhorn pessary. She returns today with no complaints. She has not had problems with the pessary. She has not had vaginal discharge. She has not had vaginal bleeding. EXAM: pleasant, well developed, well nourished, in no apparent distress Pelvic: Bartholin's, urethra and [place]'s glands were normal. The Gellhorn pessary was removed. Vaginal exam indicated no erythema, no ulcerations, and no vaginal discharge. Small area of granulation tissue on anterior lip of cervix that bled on contact- silver nitrate applied. Small pedunculated polyp arising from external cervix- has not changed- does not bleed on contact- does not appear inflamed. The pessary was cleaned a size 2 short-stem Gellhorn was inserted without difficulty The pessary was inserted, patient tolerated the procedure well and the device is comfortable. (N81.9) Female genital prolapse, unspecified type (primary encounter diagnosis) (N81.4) Cystocele with prolapse (Z46.89) Pessary maintenance RTO 3 months or PRN Will order new pessary for next visit I spent a total of 20 minutes on the date of the service which included preparing to see the patient, [id number] patient care, completing clinical documentation, obtaining and/or reviewing separately obtained history, performing a medically appropriate examination, and counseling and educating the patient/family/caregiver. Herman Almanzar MD documented in this encounterJ.W. Ruby [facility]12-12-2023 History of Present illness Narrative* Herman Palumbo MD - 07/22/2023 1:17 PM EST Acid Wash Operator offered: Patient declines. Willem Evans is a 77 year old No obstetric history on file. who presents today for pessary insertion/cleaning. She wears a short knob Gellhorn pessary. She returns today with no complaints. She has not had problems with the pessary. She has not had vaginal discharge. She has not had vaginal bleeding. EXAM: pleasant, well developed, well nourished, in no apparent distress Pelvic: Bartholin's, urethra and [place]'s glands were normal. The Gellhorn pessary was removed. Vaginal exam indicated no erythema, no ulcerations, and no vaginal discharge. The pessary was cleaned a short knob Gellhorn was inserted without difficulty The pessary was inserted, patient tolerated the procedure well and the device is comfortable. Advised to continue use of estrogen cream 2-3 times weekly Bring to next visit. (N81.4) Cystocele with prolapse (primary encounter diagnosis) Comment: Plan: conjugated estrogens (PREMARIN) vaginal cream (Z46.89) Pessary maintenance Comment: RTO 2 months I spent a total of 20 minutes on the date of the service which included preparing to see the patient, [id number] patient care, completing clinical documentation, obtaining and/or reviewing separately obtained history, performing a medically appropriate examination, counseling and educating the pat ient/family/caregiver, and ordering medications, tests, or procedures. Herman Almanzar MD documented in this encounterJ.W. Ruby [facility]11-16-2023 Miscellaneous Notes* Telephone Encounter - Kailey Diego MA - 06/26/2023 5:17 PM EST Patient notified of results, verbalizes understanding of instructions. Kailey Diego MA * Telephone Encounter - Anna Lizarraga APRN.CNP - 06/26/2023 5:10 PM EST Please inform patient that urine culture was negative for growth. May complete ATB if it helping symptoms. She will need to follow up with PCP to ensure the blood in urine has resolved. documented in this encounterJ.W. Ruby [facility] Hospital11-16-2023 Miscellaneous Notes* Telephone Encounter - Madison Stovall APRN.CNP - 06/26/2023 8:41 AM EST Patient identified by name and date of . Discussed positive COVID test result and Paxlovid prescription was sent to pharmacy. Last labs for kidney function: Component Latest Ref Rng & Units 04/07/2023 Protein, Total 6.3 - 8.0 g/dL 7.3 Albumin 3.9 - 4.9 g/dL 4.8 Calcium 8.5 - 10.2 mg/dL 10.4 (H) Bilirubin, Total 0.2 - 1.3 mg/dL 0.2 Alkaline Phosphatase 34 - 123 U/L 85 AST 13 - 35 U/L 18 ALT 7 - 38 U/L 19 Glucose 74 - 99 mg/dL 111 (H) BUN 7 - 21 mg/dL 15 Creatinine 0.58 - 0.96 mg/dL 0.78 Sodium 136 - 144 mmol/L 140 Potassium 3.7 - 5.1 mmol/L 4.6 Chloride 97 - 105 mmol/L 102 CO2 22 - 30 mmol/L 25 Anion Gap 9 - 18 mmol/L 13 eGFR >=60 mL/min/1.73m 78 Madison Stovall APRN.CNP documented in this encounterJ.[facility]. [facility]-15-[facility]23 Miscellaneous Notes* Addendum Note - Madison Stovall APRN.CNP - 06/25/2023 2:20 PM EST Addended by: MADISON STOVALL on: 06/25/2023 02:20 PM Modules accepted: Orders * Addendum Note - Madison Stovall APRN.CNP - 06/25/2023 1:19 PM EST Addended by: MADISON STOVALL on: 06/25/2023 01:19 PM Modules accepted: Orders documented in this encounterJ.W. [facility]11-15-2023 Instructions* Patient Instructions* Madison Stovall APRN.CNP - 06/25/2023 9:58 AM EST ASSESSMENT/PLAN: 1. Generalized weakness - ICD9: 780.79, ICD10: R53.1 (primary diagnosis) - UA DIP, URINE (POC) - patient unable to give sample in clinic. Supplies given, will return with urine sample as soon aspossible. 2. Chills - ICD9: 780.64, ICD10: R68.83 - COVID & INFLUENZA A/B NAAT, ROUTINE 3. Acute cystitis with hematuria - ICD9: 595.0, ICD10: N30.01 - CEPHALEXIN 500 MG CAPSULE - Follow-up with your PCP in 3-5 days if symptoms have not improved or sooner if symptoms worsen - Discussed red flags and need for immediate medical evaluation if any occur. - Discussed supportive care treatment with fluids, rest and analgesia. - Discussed expected course of illness Madison Stovall APRN.KARLEE documented in this encounterJ.W. [facility]11-15-2023 History of Present illness Narrative* Madison Stovall APRN.KARLEE - 06/25/2023 9:33 AM EST Subjective Cough Associated symptoms include chills, ear pain, headaches and sore throat. Pertinent negatives include no shortness of breath. Willem Evans is a 77 year old female who presents with chills, headache, cough, sore throat and generalized weakness since last night. Her states she has early dementia-they are seeing neurologist for this. He thinks she had a fever last night. She took Madiha [place] and Tylenol last night. She has not had any known sick contacts. Review of Systems Constitutional: Positive for chills and malaise/fatigue. Negative for fever. HENT: Positive for ear pain and sore throat. Negative for congestion. Respiratory: Positive for cough. Negative for sputum production and shortness of breath. Cardiovascular: Negative. Gastrointestinal: Negative for diarrhea, nausea and vomiting. Neurological: Positive for weakness and headaches. Negative for dizziness and speech change. BP 134/75 Pulse 80 Temp 36.2 C (97.2 F) Resp 18 Wt 73 kg (161 lb) SpO2 95% PAST MEDICAL HISTORY Diagnosis Date Allergic rhinitis, cause unspecified Generalized anxiety disorder with social component Irritable bowel syndrome mainly constipation Osteoporosis, unspecified per prior DEXA times 2 Overweight(278.02) PAST SURGICAL HISTORY Procedure Laterality Date COLONOSCOPY [address] ABEL [facility], NORMAL LIG/TRNSXJ FLP TUBE ABDL/VAG APPR UNI/BI Tubal ligation she was 36 years old ALLERGIES Patient has no known allergies. MEDICATIONS donepezil (ARICEPT) 5 mg tablet Take 1 tablet by mouth daily at bedtime. PREMARIN vaginal cream USE 1 GRAM VAGINALLY TWICE WEEKLY. busPIRone (BUSPAR) 10 mg tablet Take 1 tablet by mouth twice daily. FLUoxetine (PROZAC) 20 mg capsule Take 1 capsule by mouth once daily. Take along with 40 mg pill for a total of 60 mg daily FLUoxetine (PROZAC) 40 mg capsule Take 1 capsule by mouth once daily. acetaminophen (TYLENOL EXTRA STRENGTH) 500 mg tablet Take 2 tablets by mouth every 6 hours as needed for pain. MELATONIN ORAL Take 6 mg by mouth daily at bedtime. DAILY MULTIVITAMIN TAB Take one(1) tablet daily. ASPIRIN 81 MG TAB Take one(1) tablet daily. FAMILY HISTORY Problem Relation Age of Onset Stroke Father at 85, healthy til then Breast Cancer Maternal Aunt roughly 40 Colon Cancer Other none Coronary Artery Disease Other none Diabetes Other none Social History Tobacco Use Smoking status: Never Smokeless tobacco: Never Tobacco comments: Goes by Willem [employer] Use Vaping Use: Never used Substance Use Topics Alcohol use: No Drug use: No Objective Physical Exam Vitals and nursing note reviewed. Constitutional: Appearance: Normal appearance. HENT: Right Ear: Tympanic membrane, ear canal and external ear normal. Left Ear: Tympanic membrane, ear canal and external ear normal. Nose: Nose normal. Mouth/Throat: Mouth: Mucous membranes are moist. Pharynx: Oropharynx is clear. Uvula midline. No oropharyngeal exudate or posterior oropharyngeal erythema. Cardiovascular: Rate and Rhythm: Normal rate and regular rhythm. Heart sounds: Normal heart sounds. Pulmonary: Effort: Pulmonary effort is normal. No respiratory distress. Breath sounds: Normal breath sounds. No wheezing or rales. Musculoskeletal: Cervical back: Neck supple. Lymphadenopathy: Cervical: No cervical adenopathy. Skin: General: Skin is warm and dry. Findings: No erythema or rash. Neurological: Mental Status: She is alert. Last labs for kidney function: Component Latest Ref Rng & Units 04/07/2023 Protein, Total 6.3 - 8.0 g/dL 7.3 Albumin 3.9 - 4.9 g/dL 4.8 Calcium 8.5 - 10.2 mg/dL 10.4 (H) Bilirubin, Total 0.2 - 1.3 mg/dL 0.2 Alkaline Phosphatase 34 - 123 U/L 85 AST 13 - 35 U/L 18 ALT 7 - 38 U/L 19 Glucose 74 - 99 mg/dL 111 (H) BUN 7 - 21 mg/dL 15 Creatinine 0.58 - 0.96 mg/dL 0.78 Sodium 136 - 144 mmol/L 140 Potassium 3.7 - 5.1 mmol/L 4.6 Chloride 97 - 105 mmol/L 102 CO2 22 - 30 mmol/L 25 Anion Gap 9 - 18 mmol/L 13 eGFR >=60 mL/min/1.73m 78 Office Visit on 06/25/2023 Component Date Value Ref Range Status GLUCOSE UA (POCT) 06/25/2023 Negative Negative mg/dL Final BILIRUBIN UA (POCT) 06/25/2023 Negative Negative Final KETONE UA (POCT) 06/25/2023 Trace Negative mg/dL Final SPECIFIC GRAVITY UA (POCT) 06/25/2023 <=1.005 (A) 1.005 - 1.030 Final HEMOGLOBIN/BLOOD UA (POCT) 06/25/2023 Small (A) Negative Final PH UA (POCT) 06/25/2023 6.0 4.5 - 8.0 Final PROTEIN UA (POCT) 06/25/2023 Negative Negative mg/dL Final UROBILINOGEN UA (POCT) 06/25/2023 0.2 Normal E.U./dL Final NITRITE UA (POCT) 06/25/2023 Negative Negative Final LEUKOCYTES UA (POCT) 06/25/2023 Trace (A) Negative Final COLOR UA (POCT) 06/25/2023 Other Final CLARITY UA (POCT) 06/25/2023 Cloudy Final ASSESSMENT/PLAN: 1. Generalized weakness - ICD9: 780.79, ICD10: R53.1 (primary diagnosis) - UA DIP, URINE (POC) - patient unable to give sample in clinic. Supplies given, will return with urine sample as soon aspossible. 2. Chills - ICD9: 780.64, ICD10: R68.83 - COVID & INFLUENZA A/B NAAT, ROUTINE 3. Acute cystitis with hematuria - ICD9: 595.0, ICD10: N30.01 - CEPHALEXIN 500 MG CAPSULE - Follow-up with your PCP in 3-5 days if symptoms have not improved or sooner if symptoms worsen - Discussed red flags and need for immediate medical evaluation if any occur. - Discussed supportive care treatment with fluids, rest and analgesia. - Discussed expected course of illness Madison Stovall APRN.KARLEE documented in this encounterJ.W. [facility]11-07-2023 Instructions* Patient Instructions* Rosemarie Spears PA-C - 06/17/2023 2:19 PM EST Memory testing schedule this today Start aricept 5mg at night Stay physically active, stay social For family: -Routine activity -Separate the person from what seems to be upsetting him -Assess for the presence of pain, constipation, or other physical problem -Review medications, especially new medications -Travel with them to where they are in time -Do not disagree; respect the person's thoughts even if they are incorrect -Physical interaction: Maintain eye contact, get to their height level, and allow space -Speak slowly and calmly in a normal tone of voice. The person may not understand the words spoken,but they may picker and sorter load and unload the tone of the voice behind the words and respond to that -Avoid finger pointing, scolding, or threatening -Redirect the person to participate in enjoyable activities, or offer comfort foods that they may recognize and like -If you appear to be the cause of the problem, leave the room for a while -Validate that the person seems to be upset over something. Reassure the person that you want to help them and you love them. -Avoid asking the person to do what appears to trigger an agitated or aggressive response. Your MRI did show a few lacunar strokes: General guidelines for stroke risk factor management, if present Hypertension Target blood pressure <140/90, <130/80 for high risk; normal is 120/80 Hyperlipidemia Target total cholesterol < 200 Target LDL <100, < 70 for high risk Target HDL >45 for men, >55 for women Target triglycerides <150 Diabetes Target HgbA1c <7% Smoking Target is smoking cessation Physical inactivity Target is exercise at least 3 times per week Target waist circumference, in inches is <35 for women and <40 for men Follow up in 2 months documented in this encounterJ.W. [facility]11-07-2023 History of Present illness Narrative* Rosemarie Spears PA-C - 06/17/2023 1:39 PM EST ESTABLISHED PATIENT VISIT Last visit: 04/22/23 Assessment & Plan: Willem Evans is a 77 year old female with a history of IBS, YEIMI and osteoporosis. Her examination demonstrates depressed mood, MoCA of . Patient with 1 to 2 years of poor short-term memory. Notes history of depression and is currently on Prozac after trying multiple antidepressants. Notes that this has helped but does note some variable mood. History and physical somewhat limited due to patient's , commonly contradicting whatpatient states. MoCA is significant for , but during the memory testing patient was very discouraged and appeared depressed. Depression worsened after they moved from their house into a small apartment, and both patient and note that they are under stress as they are trying to find something to buy long-term. Previous MRI of the brain obtained in July 2022 does show moderate volume loss diffusely without any infarct. Patient also with signficant hearing loss on exam, has hearing aids in place but notes that they do not work well. Patient's symptoms likely multifactorial with mood, hearing loss and possible neurodegenerative process. Exam was limited as time ran out, will domore in depth physical at next appointment, no obvious neurologic deficits observed. Normal gait, no masked fascies, no obvious tremor. Recent TSH, B12, Folate, A1c normal. At this time, will obtained MRI of the brain with volumetric analysis. Additionally, will order neuropsychological testing. Deferred any medication at this time. Patient and agreeable to treatment plan of care at this time, all questions were answered. Patient to follow up after testing. Willem was seen today for new patient evaluation. Diagnoses and all orders for this visit: Memory loss - MRI BRAIN WO IVCON; Future - NEUROPSYCHOLOGICAL TESTING CONSULT Memory change - CONSULT TO NEUROLOGY - MRI BRAIN WO IVCON; Future - NEUROPSYCHOLOGICAL TESTING CONSULT Hearing loss, unspecified hearing loss type, unspecified laterality She should return to see me in 3 months. CHIEF COMPLAINT: follow up HISTORY OF PRESENT ILLNESS: Willem Evans is a 77 year old female, There were no vitals taken for this visit. with a PMH significant for IBS, YEIMI and osteoporosis. Last seen 04/22/23 for memory concerns, significant depression and hearing loss. Driving occasionally, no falls but leaves stove on. MoCA was 16/30. MRI of the brain with volumetric analysis showed significant temporal volume loss and hippocampal loss in the 1st percentile. Patient presents with for follow-up. When asked how her memory has been or if she has any new symptoms, she looks to her who states that she is not. Patient denies any worsening in her memory, agrees that her memory has been stable. They do note that they today they got intoa fight prior to this appointment because they were thinking about buying property and patient does not remember the property creating frustration for the . Patient does not leave the stove on, no falls since last appointment. Patient is no longer driving. No new medications or diagnoses since last appointment. Patient notes that she is sleeping well. Patient states that she is not very active throughout the day, but drinks plenty of water per day. Does puzzles as well. NO new concerns or symptoms today. Did ask patient about her mood and she states that it is not good, feels depressed. Following with PCP for depression management. Patient's denies any worsening of patient's depression. REVIEW OF SYSTEMS GENERAL:No weight loss, malaise or fevers. HEENT:Negative for frequent or significant headaches, No changes in hearing or vision, no nose bleeds or other nasal problems NECK:Negative for lumps, goiter, pain and significant neck swelling RESPIRATORY: Negative for cough, wheezing or shortness of breath. CARDIOVASCULAR: Negative for chest pain, leg swelling or palpitations. GASTROINTESTINAL: Negative for abdominal discomfort, blood in stools or black stools or change in bowel habits GENITOURINARY: No history of dysuria, frequency or incontinence MUSCULOSKELETAL: Negative for joint pain or swelling, back pain or muscle pain. NEUROLOGIC:Negative for focal numbness or weakness, headaches and dizziness or syncope, vision changes, speech/languag changes - EXCEPT that as per HPI above. SKIN:Negative for lesions, rash, and itching. PSYCHIATRIC: Negative for sleep disturbance, mood disorder and recent psychosocial stressors. HEMATOLOGIC/LYMPHATIC/IMMUNOLOGIC:Negative for prolonged bleeding, bruising easily or swollen nodes. ENDOCRINE: Negative for cold or heat intolerance, polyuria, polydipsia and goiter. The remainder of the ROS was reviewed and is negative. LAB/IMAGING: Those performed since patient's last visit have been reviewed. MRI brain WO 05/22/23 IMPRESSION: * No evidence of an acute intracranial process or intracranial mass. * Severe temporal predominant volume loss. Quantitative assessment as above. * Hippocampal volumes at the 1st percentile when compared to age matched normal controls by quantitative analysis. * Mild white matter disease which is nonspecific but likely reflective of chronic microvascular ischemia. Small chronic lacunar infarcts as detailed. * Less than 5 parenchymal microhemorrhages by MRI. MEDICATIONS: PREMARIN vaginal cream USE 1 GRAM VAGINALLY TWICE WEEKLY. busPIRone (BUSPAR) 10 mg tablet Take 1 tablet by mouth twice daily. FLUoxetine (PROZAC) 20 mg capsule Take 1 capsule by mouth once daily. Take along with 40 mg pill for a total of 60 mg daily FLUoxetine (PROZAC) 40 mg capsule Take 1 capsule by mouth once daily. acetaminophen (TYLENOL EXTRA STRENGTH) 500 mg tablet Take 2 tablets by mouth every 6 hours as needed for pain. MELATONIN ORAL Take 6 mg by mouth daily at bedtime. DAILY MULTIVITAMIN TAB Take one(1) tablet daily. ASPIRIN 81 MG TAB Take one(1) tablet daily. HISTORIES PAST MEDICAL HISTORY Diagnosis Date Allergic rhinitis, cause unspecified Generalized anxiety disorder with social component Irritable bowel syndrome mainly constipation Osteoporosis, unspecified per prior DEXA times 2 Overweight(278.02) FAMILY HISTORY Problem Relation Age of Onset Stroke Father at 85, healthy til then Breast Cancer Maternal Aunt roughly 40 Colon Cancer Other none Coronary Artery Disease Other none Diabetes Other none SOCIAL HISTORY Social History Tobacco Use Smoking status: Never Smokeless tobacco: Never Tobacco comments: Goes by Willem Vaping Use Vaping Use: Never used Substance Use Topics Alcohol use: No Drug use: No PHYSICAL EXAMINATION BP 156/75 Pulse 77 Resp 16 Wt 73.8 kg (162 lb 9.6 oz) SpO2 96% Repeat MoCA deferred (patient forgot hearing aids) GENERAL EXAM: General appearance: NAD, pleasant. HEENT: NC/AT, nasal congestion absent, no oral lesions, membranes moist. NECK: No masses, supple. Lungs: Breathing comfortably Extr: Moves all extremities without difficulty Skin: Cool to touch. No rash. NEUROLOGICAL EXAM: General: Awake, alert, oriented x3 (person,place,time), speech fluent, no dysarthria; comprehension, naming, repetition intact. Poor short term memory CN: PERRL, EOMI and without nystagmus, VFF to confrontation, facial sensation and strength are normal and symmetric, poor hearing bilaterally (patient forgot hearing aids), palate and tongue movements are intact and symmetric. SCM and trapezius strength normal. Motor: Normal tone, bulk and strength (5/5) bilaterally (throughout extremities x4). Reflexes: 2/4 and symmetric Coordination: FNF intact. Heel to lee intact. Slight intention tremor to the BUE worse on left. Sensation: No evidence of neglect. Gait: Narrow based and stable with normal stride and arm swing. Romberg normal. Assessment and Plan: ASSESSMENT/PLAN: 1. Memory loss - ICD9: 780.93, ICD10: R41.3 (primary diagnosis) 2. Dementia without behavioral disturbance, psychotic disturbance, mood disturbance, or anxiety, unspecified dementia severity, unspecified dementia type (HCC) - ICD9: 294.20, ICD10: F03.90 Patient with stable memory since last appointment, deferred repeat MoCA today as patient forgot herhearing aids. No change or new symptoms since last appointment. MRI of the brain showing hippocampus in the 1st percentile along with severe temporal volume loss bilaterally, concerning for neurodegenerative process like Alzheimer's disease. Patient MoCA at last appointment was 16/30, but she was very emotional throughout testing. Patient also reporting poorly treated depression, currently takingProzac. Also with significant hearing loss as well, but has hearing aids at home that seem to help.Ordered neuropsychological testing at last appointment, patient has yet to schedule this, encouraged to schedule this today and patient agrees. Discussed my concerns for patient having a neurodegenerative process including dementia and patient and agree. However throughout the appointment, had to repeatedly tell patient this diagnosis as she forgot. states her forgetfulness is thecause of many arguments at home, discussed with patient and that this is likely secondary to the degeneration of her brain and discussed not arguing the patient should there be a disagreement. Concerned that depression is likely playing a factor as well as patient states that her mood is not well managed at this time. Encouraged her to follow-up with her primary care, has an appointment scheduled already for this month. Regarding medications, patient without any history of heart block, bradycardia. EKG was obtained today in the office without any signs of heart block or QT prolongation. Patient amenable to starting Aricept 5 mg and titrating up to 10 mg as tolerated. Discussed common side effects and patient is amenable. Discussed other conservative therapies that may be beneficial including increasing physical activity, increasing brain activity and optimizing sleep. 3. Lacunar infarct MRI of the brain did show lacunar infarcts. Patient without any significant neurodeficits on exam. Discussed risk factors for stroke and encourage patient to continue her aspirin therapy, states thatshe has not taken this for many months because she forgot. Encouraged her to follow-up with primarycare for other risk factor management including blood pressure, cholesterol and blood sugar. Patient has been agreeable to treatment plan of care at this time, all questions were answered. Patient to follow-up in 2 to 3 months or sooner should any symptoms change or worsen. Rosemarie Spears PA-C I spent a total of 45 minutes on the date of the service which included preparing to see the patient, [id number] patient care, completing clinical documentation, obtaining and/or reviewing separately obtained history, performing a medically appropriate examination, counseling and educating the pat ient/family/caregiver, and ordering medications, tests, or procedures. This document has been created with the use of voice recognition technology. It may contain inaccuracies: (e.g. misspellings, inaccurate syntax or word sense) that have escaped review. documented in this encounterJ.W. [facility]10-13-2023 Miscellaneous Notes* Telephone Encounter - Anna Abreu LPN - 05/23/2023 11:54 AM EDT TC pt to move up appointment. Pt now scheduled June 17. Anna Abreu LPN * Telephone Encounter - Anna Abreu LPN - 05/23/2023 11:41 AM EDT ----- Message from Rosemarie Spears PA-C sent at 05/23/2023 11:31 AM EDT ----- Would we be able to move up her follow up to discuss results? Rosemarie Spears PA-C documented in this encounterJ.W. [facility]10-12-2023 History of Present illness Narrative* Annabel Renae RT(R) - 05/22/2023 9:20 AM EDT Radiology Service Progress Note PATIENT NAME: Willem Evans DATE OF SERVICE: May 22, 2023 TIME: 9:17 AM PATIENT IDENTITY VERIFICATION COMPLETED USING TWO (2) IDENTIFIERS: Name and Date of confirmedby patient verbally. FALL SCREENING: Has the patient had 2 falls in the last year or 1 fall with injury or currently using an Ambulatory Assistive Device (Walker, Cane, Wheelchair, Crutches, etc.)? No PATIENT GENDER DATA: Female. status: : No status: NO. PATIENT RELEVANT IMPLANT DATA REVIEWED: Yes RADIOLOGY DEPARTMENT: MR; Exam(s) Completed: Head: Routine Brain PERIPHERAL IV DATA: Not applicable SIGNED BY: RT Vera(R) May 22, 2023 9:17 AM documented in this encounterJ.W. [facility]10-10-2023 History of Present illness Narrative* Herman Palumbo MD - 05/20/2023 11:13 AM EDT Acid Wash Operator offered: Patient declines. Willem Evans is a 77 year old female who presents for pessary maintenance. Patient reports has occasional spotting when placing the estrogen cream vaginally. Otherwise is doing well. Patient denies any foul vaginal discharge. Denies any pain with the pessary. No issues with bowel movements. OB History No obstetric history on file. [place] History LMP: Postmenopausal Age at Menarche: Age at First : Age at Menopause: [place] History Comments: Sexual Activity: Yes; Male; 1983, monogamous since; no history of STDs Contraception: No contraception data on record PAST MEDICAL HISTORY Diagnosis Date Allergic rhinitis, cause unspecified Generalized anxiety disorder with social component Irritable bowel syndrome mainly constipation Osteoporosis, unspecified per prior DEXA times 2 Overweight(278.02) PAST SURGICAL HISTORY Procedure Laterality Date COLONOSCOPY [address] ABEL [facility], NORMAL LIG/TRNSXJ FLP TUBE ABDL/VAG APPR UNI/BI Tubal ligation she was 36 years old FAMILY HISTORY Problem Relation Age of Onset Stroke Father at 85, healthy til then Breast Cancer Maternal Aunt roughly 40 Colon Cancer Other none Coronary Artery Disease Other none Diabetes Other none Social History Tobacco Use Smoking status: Never Smokeless tobacco: Never Tobacco comments: Goes by Willem Vaping Use Vaping Use: Never used Substance Use Topics Alcohol use: No Drug use: No Current Outpatient Medications Medication Sig PREMARIN vaginal cream USE 1 GRAM VAGINALLY TWICE WEEKLY. busPIRone (BUSPAR) 10 mg tablet Take 1 tablet by mouth twice daily. FLUoxetine (PROZAC) 20 mg capsule Take 1 capsule by mouth once daily. Take along with 40 mg pill for a total of 60 mg daily FLUoxetine (PROZAC) 40 mg capsule Take 1 capsule by mouth once daily. acetaminophen (TYLENOL EXTRA STRENGTH) 500 mg tablet Take 2 tablets by mouth every 6 hours as needed for pain. MELATONIN ORAL Take 6 mg by mouth daily at bedtime. DAILY MULTIVITAMIN TAB Take one(1) tablet daily. ASPIRIN 81 MG TAB Take one(1) tablet daily. No current facility-administered medications for this visit. Allergies As of Date: 05/20/2023 (No Known Allergies) Fully Assessed 04/22/2023 REVIEW OF SYSTEMS Abdomen: no pain Bladder: no dysuria.. Expanded ROS: GENERAL: Negative for fever Allergies and current medication updated:Yes EXAM: BP 144/82 Wt 164 lb (74.4kg) GENERAL: pleasant, female in no apparent distress HEENT: Normocephalic and atraumatic NECK: full range of motion ABDOMEN: soft, non-tender, and no masses PELVIC: Gellhorn pessary removed. Patient tolerated well. Minimal blood noted on the pessary. Vaginal atrophy appreciated. Pessary was coated to treatment sand. External genitalia normal, normal Bartholin's glands, urethra, [place]'s glands, no vulvar lesions, good vaginal support, physiologic discharge present, normal appearing perineal body and perianal region, slight erythema on the anterior lip of the cervix. Pinpoint spotting. Silver nitrate applied. No further active bleeding. Pessary replaced without difficulty. BIMANUAL: uterus normal size, shape and consistency, no adnexal masses, and non-tender NEURO: alert and oriented x3,exam grossly non-focal EXTREMITIES: normal ASSESSMENT AND PLAN: Encounter Diagnosis ICD-10-CM 1. Cystocele with prolapse N81.4 2. Pessary maintenance Z46.89 3. The patient irritation on the anterior lip of the cervix. Silver nitrate was applied. Continue use of vaginal estrogen cream. Follow-up in the office in 2 months or sooner if indicated. Bleeding precautions were reviewed. Offer urogynecology for second opinion for surgical intervention patient declines at this time. I spent a total of 20 minutes on the date of the service which included preparing to see the patient, [id number] patient care, completing clinical documentation, obtaining and/or reviewing separately obtained history, performing a medically appropriate examination, counseling and educating the pat ient/family/caregiver, and ordering medications, tests, or procedures. Herman Almanzar MD documented in this encounterJ.W. [facility]09-25-[facility] Miscellaneous Notes* Telephone Encounter - Kaelyn Redmond LPN - 05/05/2023 2:54 PM EDT See pharmacy generated refill request below. Pt was last seen in the office 04/18/23. Please advise. Kaelyn Redmond LPN documented in this encounterJ.W. [facility]09-12-2023 Instructions* Patient Instructions* Rosemarie Spears PA-C - 04/22/2023 2:32 PM EDT Neuropsychological testing MRI brain without contrast Follow up after testing documented in this encounterJ.W. Ruby [facility]09-12-2023 History of Present illness Narrative* Rosemarie Spears PA-C - 04/22/2023 1:36 PM EDT Images from the original note were not included. Neurology Outpatient Clinic Date: April 22, 2023 Patient Name: Willem Evans Referring provider: Yun Jackson CNP [address] [facility] [address] Consult requested for memory loss by Yun Jackson CNP. Recommendations will be communicated via shared medical record or US mail. Primary physician: Citlaly العراقي [address] [place] [address] Reason for Evaluation: memory loss Subjective HPI Willem Evans is a 77 year old female with history of IBS, YEIMI and osteoporosis who presents for evaluation of memory concerns. Dr. Jackson is the referring physician. Dr. Citlaly العراقي MD is thePCP. Chart review: Saw PCP 04/07/23 for memory change, takes prozac for anxiety and depression. 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 Some difficulty with word recall attimes. Has not had any safety concerns at home. Refers this has been on going for some time. Vitamin D slightly low, B12, TSH and folate normal. MRI of the brain 07/25/22 was normal with mild microvascular changes, moderate volume loss. Per patient: Patient's history primarily obtained through the as he frequently interrupted patient. Patient and state symptoms began within the last year or 2, states that he first noticed issues with her short- term memory after they moved from their home into an apartment. Patient became depressed after this and has tried and failed multiple antidepressants, currently on Prozac which seems to be helping. Primary concern is for short-term memory, states that she will repeatedly ask questions about things he already answered throughout the day. Patient notes that her concern is not remembering things people told her. States that they will tell her that she was informed of the something earlier and she does not remember. However, patient does have significanthearing loss and is unsure if she has heard it at all. Patient has been also notes that they are currently under a lot of stress as they are looking for anew place to live because it is difficult to buy house or apartment in this market. Patient does note that she drives occasionally without any issues, but does not drive regularly. No recent falls, patient does not leave the stove on or the faucet running. Does not get lost. notes that he is concerned that if she was able to drive that she would get lost but this is not out of her norm per her . When asked about mood, patient's interjects and states that patient has a very variable mood but its been this way for her whole life giving many examples on her irritability with him. However, no aggression or acute change in personality. Patient denies any tremor, denies forgetting who she is, denies hallucinations, denies anosmia or micrographia. Patient notes her sleep can be variable, but does get good sleep on average. Takes melatonin before bed every night, no snoring, no frequent awakenings, does have a dry mouth in the morning but feels well rested throughout the day. However, patient's states she does not feel well rested through the day. Patient does drink water throughout the day, but does not exercise regularly. One head injury many years ago but no recent head injuries. Family history of dementia with her sister but no others, no parkinsons. No other symptoms including headaches, vision changes, tremor, w eakness, slurred speech Labs/Imaging MRI brain WO 07/25/23 IMPRESSION: No evidence of an acute intracranial infarction. Volume loss and chronic small vessel ischemic changes. Medications: Current Outpatient Medications Medication Sig Dispense Refill busPIRone (BUSPAR) 10 mg tablet Take 1 tablet by mouth twice daily. 60 tablet 5 conjugated estrogens (PREMARIN) vaginal cream Use 1 g vaginally two times a week. 42.5 g 1 FLUoxetine (PROZAC) 20 mg capsule Take 1 capsule by mouth once daily. Take along with 40 mg pill for a total of 60 mg daily 90 capsule 3 FLUoxetine (PROZAC) 40 mg capsule Take 1 capsule by mouth once daily. 90 capsule 3 acetaminophen (TYLENOL EXTRA STRENGTH) 500 mg tablet Take 2 tablets by mouth every 6 hours as needed for pain. MELATONIN ORAL Take 6 mg by mouth daily at bedtime. DAILY MULTIVITAMIN TAB Take one(1) tablet daily. 0 ASPIRIN 81 MG TAB Take one(1) tablet daily. 0 No current facility-administered medications for this visit. ROS ROS: Her ROS was positive for that mentioned in the HPI. Otherwise a 10-point ROS was completed andwas negative. ALLERGIES No Known Allergies Past Medical History: PAST MEDICAL HISTORY Diagnosis Date Allergic rhinitis, cause unspecified Generalized anxiety disorder with social component Irritable bowel syndrome mainly constipation Osteoporosis, unspecified per prior DEXA times 2 Overweight(278.02) Family History: FAMILY HISTORY Problem Relation Age of Onset Stroke Father at 85, healthy til then Breast Cancer Maternal Aunt roughly 40 Colon Cancer Other none Coronary Artery Disease Other none Diabetes Other none Also includes: Sister with dementia. Social History: Social History Tobacco Use Smoking status: Never Smokeless tobacco: Never Tobacco comments: Goes by Willem Vaping Use Vaping Use: Never used Substance Use Topics Alcohol use: No Drug use: No Retired, recently moved Objective 04/22/23 1335 BP: 157/75 Pulse: 70 Resp: 16 SpO2: 96% Weight: 72.4 kg (159 lb 9.6 oz) Physical Examination MoCA: visuospatial: 2 Namin Attention: 01/14 Language: 08/13 Abstraction: 2 Delayed recall: 05 Orientation: 6 Throughout interview patient easily discouraged and depressed saying I just do not know. General Appearance: Well appearing, alert, in no acute distress, well-hydrated, well nourished. Head: Normocephalic Pulm: Breathing comfortably Neck: Supple Psych: Easily discouraged, looks to frequently, apologetic Neurological Examination: Mental Status: Alert and Oriented to Place, Person, Time and Situation and Patient follows commands.. Language: Is intact to Comprehension, Fluency and Repetition Cranial Nerves: CNII: Visual acuity normal, visual ho full to confrontation CNIII, IV, : Pupils equal, round and reactive to light, full extraoccular movements CN V: not tested CN VII: Facial muscles symmetric and strong CN VIII: Significantly decreased hearing bilaterally CN IX: Gag Reflex not examined CN X: Palate elevates symmetrically CN XI: Full strength shoulder shrug bilaterally CN XII: Tongue protrusion full and midline Motor Exam: Inspection - Normal, no fasciculations or tremors noted. Power:Moves all four extremities without difficulty Sensory Examination No signs of neglect Coordination: no tremor, handwriting intact Gait: Patient's gait is normal DATA REVIEWED Actual films/image/tracing reviewed and summarized as follows: MRI brain Old records reviewed and summarized as follows: PCP Assessment/Plan Assessment & Plan: Willem Evans is a 77 year old female with a history of IBS, YEIMI and osteoporosis. Her examination demonstrates depressed mood, MoCA of . Patient with 1 to 2 years of poor short-term memory. Notes history of depression and is currently on Prozac after trying multiple antidepressants. Notes that this has helped but does note some variable mood. History and physical somewhat limited due to patient's , commonly contradicting whatpatient states. MoCA is significant for , but during the memory testing patient was very discouraged and appeared depressed. Depression worsened after they moved from their house into a small apartment, and both patient and note that they are under stress as they are trying to find something to buy long-term. Previous MRI of the brain obtained in July 2022 does show moderate volume loss diffusely without any infarct. Patient also with signficant hearing loss on exam, has hearing aids in place but notes that they do not work well. Patient's symptoms likely multifactorial with mood, hearing loss and possible neurodegenerative process. Exam was limited as time ran out, will domore in depth physical at next appointment, no obvious neurologic deficits observed. Normal gait, no masked fascies, no obvious tremor. Recent TSH, B12, Folate, A1c normal. At this time, will obtained MRI of the brain with volumetric analysis. Additionally, will order neuropsychological testing. Deferred any medication at this time. Patient and agreeable to treatment plan of care at this time, all questions were answered. Patient to follow up after testing. Willem was seen today for new patient evaluation. Diagnoses and all orders for this visit: Memory loss - MRI BRAIN WO IVCON; Future - NEUROPSYCHOLOGICAL TESTING CONSULT Memory change - CONSULT TO NEUROLOGY - MRI BRAIN WO IVCON; Future - NEUROPSYCHOLOGICAL TESTING CONSULT Hearing loss, unspecified hearing loss type, unspecified laterality She should return to see me in 3 months. I spent a total of 60 minutes on the date of the service which included preparing to see the patient, [id number] patient care, completing clinical documentation, obtaining and/or reviewing separately obtained history, performing a medically appropriate examination, counseling and educating the pat ient/family/caregiver, and ordering medications, tests, or procedures. Rosemarie Spears PA-C [facility] This document has been created with the use of voice recognition technology. It may contain inaccuracies: (e.g. misspellings, inaccurate syntax or word sense) that have escaped review. documented in this encounterJ.W. [facility]09-08-2023 History of Present illness Narrative* Herman Palumbo MD - 04/18/2023 9:05 AM EDT Acid Wash Operator offered: Patient declines. Willem Evans is a 77 year old female who presents for concerns regarding a few episodes of vaginal spotting. She states it was just enough when wiping and to stain her underwear. She denies any abdominal pain or cramping with the bleeding. She states that she is still using the vaginal estrogen cream approximately twice per week. She is not having any vaginal pain. Pessary is still in place. Patient offers no other concerns today. OB History No obstetric history on file. Terra [place]ta Roofer History LMP: Postmenopausal Age at Menarche: Age at First : Age at Menopause: Terra Cotta Roofer History Comments: Sexual Activity: Yes; Male; 1983, monogamous since; no history of STDs Contraception: No contraception data on record PAST MEDICAL HISTORY Diagnosis Date Allergic rhinitis, cause unspecified Generalized anxiety disorder with social component Irritable bowel syndrome mainly constipation Osteoporosis, unspecified per prior DEXA times 2 Overweight(278.02) PAST SURGICAL HISTORY Procedure Laterality Date COLONOSCOPY [address] [facility], NORMAL LIG/TRNSXJ FLP TUBE ABDL/VAG APPR UNI/BI Tubal ligation she was 36 years old FAMILY HISTORY Problem Relation Age of Onset Stroke Father at 85, healthy til then Breast Cancer Maternal Aunt roughly 40 Colon Cancer Other none Coronary Artery Disease Other none Diabetes Other none Social History Tobacco Use Smoking status: Never Smokeless tobacco: Never Tobacco comments: Goes by Willem Vaping Use Vaping Use: Never used Substance Use Topics Alcohol use: No Drug use: No Current Outpatient Medications Medication Sig busPIRone (BUSPAR) 10 mg tablet Take 1 tablet by mouth twice daily. conjugated estrogens (PREMARIN) vaginal cream Use 1 g vaginally two times a week. FLUoxetine (PROZAC) 20 mg capsule Take 1 capsule by mouth once daily. Take along with 40 mg pill for a total of 60 mg daily FLUoxetine (PROZAC) 40 mg capsule Take 1 capsule by mouth once daily. acetaminophen (TYLENOL EXTRA STRENGTH) 500 mg tablet Take 2 tablets by mouth every 6 hours as needed for pain. MELATONIN ORAL Take 6 mg by mouth daily at bedtime. DAILY MULTIVITAMIN TAB Take one(1) tablet daily. ASPIRIN 81 MG TAB Take one(1) tablet daily. No current facility-administered medications for this visit. Allergies As of Date: 04/18/2023 (No Known Allergies) Fully Assessed 04/07/2023 REVIEW OF SYSTEMS Abdomen: no pain - diarrhea today in office. Bladder: no dysuria.. Expanded ROS: GENERAL: Negative for fever Allergies and current medication updated:Yes EXAM: BP 110/60 Wt 160 lb (72.6kg) GENERAL: pleasant, female in no apparent distress HEENT: Normocephalic and atraumatic NECK: full range of motion DERMATOLOGY: without lesionsABDOMEN: soft, non-tender, and no masses PELVIC: Gellhorn pessary removed without difficulty. On the anterior lip of the cervix there is some irritation with pinpoint bleeding. No ulcerations. There is a pedunculated appearing polyp that isnot connected to the cervical os but located at 9 o'clock position. External genitalia normal, normal Bartholin's glands, urethra, [place]'s glands, no vulvar lesions, normal appearing perineal body and perianal region, no active bleeding from the cervical os. Silver nitrate was applied to the anterior lip of the cervix. BIMANUAL: uterus normal size, shape and consistency, no adnexal masses, and non-tender NEURO: alert and oriented x3,exam grossly non-focal EXTREMITIES: normal ASSESSMENT AND PLAN: Encounter Diagnosis ICD-10-CM 1. PMB (postmenopausal bleeding) N95.0 2. Vaginal inflammation from pessary, initial encounter ([facility]) T83.69XA N76.0 3. Pessary maintenance Z46.89 4. Female genital prolapse, unspecified type N81.9 5. Reviewed previous pelvic ultrasound performed October 2021. Discussed with the patient endometrialbiopsy. Discussed that I do feel the bleeding is likely from the anterior lip of the cervix and cervical irritation from the pessary but endometrial biopsy was offered. Patient accepted. 6. 2-1/4 inch Gellhorn pessary was malodorous and stained. We will try a smaller pessary as it was uncomfortable to remove today. NEW 2 inch Gellhorn with short knob pessary was placed RTO 2-3months Herman Almanzar MD ENDOMETRIAL BIOPSY Willem is a 77 year old who presents today for an endometrial biopsy for post menopausal bleeding. test: n/a UNIVERSAL PROTOCOL / SAFETY CHECKLIST Procedure to be Performed: EMB Sign In: A Moment of CARE was completed. Personnel directly involved with the procedure wore the appropriate PPE (Personal Protective Equipment). Patient/Surrogate Stated/Verified: PATIENT VERIFIED(optional for EMERGENT procedures): Patient name, Date of , Relevant allergies, and The intended procedure Time Out Communication: Intended patient and procedure match the source documents. Consent documented and matches the intended procedure. Sign Out: SIGN OUT (optional for EMERGENT procedures): All specimen containers correctly labeled. Herman Almanzar MD PROCEDURE: EXTERNAL GENITALIA: Normal in appearance without lesions VAGINA: Normal in appearance without lesions BIOPSY: Speculum placed into the vagina with excellent visualization of the cervix. Cervix cleaned with betadine. Anterior lip of cervix grasped with single toothed tenaculum. Uterus sounded to 6 cm.Pipelle inserted into the uterus without difficulty and endometrial biopsy obtained. Specimen labeled and sent to pathology. Hemostasis achieved. Procedure Summary: Patient tolerated procedure well. ASSESSMENT: post menopausal bleeding PLAN: Specimens labeled and sent to Pathology. Will notify patient of results in 1-2 weeks. Herman Almanzar MD I spent a total of 20 minutes on the date of the service which included preparing to see the patient, [id number] patient care, completing clinical documentation, obtaining and/or reviewing separately obtained history, performing a medically appropriate examination, and counseling and educating the patient/family/caregiver Herman Almanzar MD . documented in this encounterJ.W. [facility]09-01-2023 Miscellaneous Notes* Telephone Encounter - Kaelyn Redmond LPN - 04/11/2023 1:15 PM EDT Contacted pt with below message and assisted to schedule office visit to be evaluated. Kaelyn Redmond LPN * Telephone Encounter - Herman Palumbo MD - 04/11/2023 12:57 PM EDT Does not need to go to ER. She can be seen in office- might have irritation from pessary. Schedule where appropriate. * Telephone Encounter - Robyn Phipps RN - 04/11/2023 12:37 PM EDT Patient called with c/o vaginal bleeding. Bright red spotting that began yesterday. Wearing a liner, but it's only when she wipes. Not having any pain. No recent intercourse. Patient stated DM advised patient to go to ER if she ever had vaginal bleeding. Patient asking for provider's recommendation. Robyn Phipps RN documented in this encounterJ.W. [facility]08-31-2023 Miscellaneous Notes* Telephone Encounter - Cristela Galeana LPN - 04/10/2023 9:04 AM EDT Pt was notified of lab results & instructions, pt voiced understanding. Cristela Galeana LPN * Telephone Encounter - Yun Jackson APRN.CNP - 04/10/2023 8:38 AM EDT Can you please call the patient and let her know that I reviewed her lab results. Labs were all relatively normal. Vitamin D was mildly low. I would recommend taking Vitamin D3, 2000 international unit(s) daily. I would recommend that she keep up coming appointment with neurology to discuss memory changes. Please let me know if she has any questions. Thank you. Yun Jackson APRN.KARLEE documented in this encounterJ.W. [facility]07-06-2023 History of Present illness Narrative* Herman Richards MD - 02/13/2023 1:34 PM EDT Acid Wash Operator offered: Patient declines. Willem Evans is a 77 year old female who presents for pessary maintenance. Patient reports is doingwell. Denies any foul odors. Patient states today had 1 tiny pink spot of blood when wiping. Deniesany pain. OB History No obstetric history on file. Terra Cotta Roofer History LMP: Postmenopausal Age at Menarche: Age at First : Age at Menopause: Terra Cotta Roofer History Comments: Sexual Activity: Yes; Male; 1983, monogamous since; no history of STDs Contraception: No contraception data on record PAST MEDICAL HISTORY Diagnosis Date Allergic rhinitis, cause unspecified Generalized anxiety disorder with social component Irritable bowel syndrome mainly constipation Osteoporosis, unspecified per prior DEXA times 2 Overweight(278.02) PAST SURGICAL HISTORY Procedure Laterality Date COLONOSCOPY [address] [facility], NORMAL LIG/TRNSXJ FLP TUBE ABDL/VAG APPR UNI/BI Tubal ligation she was 36 years old FAMILY HISTORY Problem Relation Age of Onset Stroke Father at 85, healthy til then Breast Cancer Maternal Aunt roughly 40 Colon Cancer Other none Coronary Artery Disease Other none Diabetes Other none Social History Tobacco Use Smoking status: Never Smokeless tobacco: Never Tobacco comments: Goes by Willem Vaping Use Vaping Use: Never used Substance Use Topics Alcohol use: No Drug use: No Current Outpatient Medications Medication Sig busPIRone (BUSPAR) 10 mg tablet Take 1 tablet by mouth twice daily. conjugated estrogens (PREMARIN) vaginal cream Use 1 g vaginally two times a week. FLUoxetine (PROZAC) 20 mg capsule Take 1 capsule by mouth once daily. Take along with 40 mg pill for a total of 60 mg daily FLUoxetine (PROZAC) 40 mg capsule Take 1 capsule by mouth once daily. acetaminophen (TYLENOL EXTRA STRENGTH) 500 mg tablet Take 2 tablets by mouth every 6 hours as needed for pain. MELATONIN ORAL Take 6 mg by mouth daily at bedtime. DAILY MULTIVITAMIN TAB Take one(1) tablet daily. ASPIRIN 81 MG TAB Take one(1) tablet daily. No current facility-administered medications for this visit. Allergies As of Date: 02/13/2023 (No Known Allergies) Fully Assessed 12/30/2022 REVIEW OF SYSTEMS Abdomen: no pain Bladder: no dysuria.. Expanded ROS: GENERAL: Negative for fever Allergies and current medication updated:Yes EXAM: BP 142/72 Wt 157 lb (71.2kg) GENERAL: pleasant, female in no apparent distress HEENT: Normocephalic and atraumatic NECK: full range of motion DERMATOLOGY: Normal and without lesions PELVIC: Gellhorn removed without difficulty. Gellhorn was cleaned with soap and water and coated with [place]imo-[place]. Upon speculum exam there was some erythema and pinpoint bleeding on the vaginal mucosa. No ulceration. Patient gave verbal permission to apply silver nitrate to the area. No active bleeding appreciated. The pessary was then replaced without difficulty. Bleeding precautions were reviewed with the patient. There is no bleeding noted from the cervix or from the cervical os. There were no masses. Patient tolerated the procedure well. NEURO: alert and oriented x3,exam grossly non-focal EXTREMITIES: normal ASSESSMENT AND PLAN: Encounter Diagnosis ICD-10-CM 1. Cystocele with prolapse N81.4 2. Female genital prolapse, unspecified type N81.9 3. Vaginal inflammation from pessary, initial encounter ([facility]) T83.69XA N76.0 4. Pessary maintenance Z46.89 5. RTO 3 mo or PRN. Bleeding precautions reviewed. I spent a total of 20 minutes on the date of the service which included preparing to see the patient, [id number] patient care, completing clinical documentation, obtaining and/or reviewing separately obtained history, performing a medically appropriate examination, counseling and educating the pat ient/family/caregiver, and ordering medications, tests, or procedures. Herman Almanzar MD documented in this encounterJ.W. [facility]04-06-2023 Miscellaneous Notes* Telephone Encounter - Robyn Phipps RN - 11/14/2022 2:02 PM EDT Patient called needing refill of Premarin cream. Last seen 11/05/22. Robyn Phipps RN documented in this encounterJ.W. [facility]03-28-2023 Miscellaneous Notes* Telephone Encounter - Kaelyn Redmond LPN - 11/05/2022 2:52 PM EDT Spoke with pt and she stated that she and her decided to continue with her current course of treatment. Pt is aware that there is a consult order for her to be seen and if she changes her mind we would be happy to assist in scheduling her. Kaelyn Redmond LPN * Telephone Encounter - Herman Richards MD - 11/05/2022 2:40 PM EDT Are we sure? She is the one that asked me today, are you sure she understood? She was going to makean appt with Litzy Velasco. If she doesn't want it that is fine- she knows the consultorder is there. * Telephone Encounter - Kaelyn Redmond LPN - 11/05/2022 2:36 PM EDT Please advise how to proceed. Kaelyn Redmond LPN * Telephone Encounter - Robyn Robin - 11/05/2022 2:26 PM EDT Patient declined to have consult with 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 Robyn Robin documented in this encounterJ.W. [facility]03-[facility] History of Present illness Narrative* Herman Richards MD - 11/05/2022 1:27 PM EDT Acid Wash Operator offered: Patient declines. Willem Evans is a 77 year old female who presents for 3 maintenance. Patient reports is doing well with the pessary. She denies any pain, odors, discharge. She reports over once in a while she will have a brown tinge on her toilet paper when wiping. She denies any other concerns at this time. She is still considering surgical intervention. OB History No obstetric history on file. Terra Cotta Roofer History LMP: Postmenopausal Age at Menarche: Age at First : Age at Menopause: Terra Cotta Roofer History Comments: Sexual Activity: Yes; Male; 1983, monogamous since; no history of STDs Contraception: No contraception data on record PAST MEDICAL HISTORY Diagnosis Date Allergic rhinitis, cause unspecified Generalized anxiety disorder with social component Irritable bowel syndrome mainly constipation Osteoporosis, unspecified per prior DEXA times 2 Overweight(278.02) PAST SURGICAL HISTORY Procedure Laterality Date COLONOSCOPY [address] ABEL [facility], NORMAL LIG/TRNSXJ FLP TUBE ABDL/VAG APPR UNI/BI Tubal ligation she was 36 years old FAMILY HISTORY Problem Relation Age of Onset Stroke Father at 85, healthy til then Breast Cancer Maternal Aunt roughly 40 Colon Cancer Other none Coronary Artery Disease Other none Diabetes Other none Social History Tobacco Use Smoking status: Never Smokeless tobacco: Never Tobacco comments: Goes by Willem [employer] Use Vaping Use: Never used Substance Use Topics Alcohol use: No Drug use: No Current Outpatient Medications Medication Sig FLUoxetine (PROZAC) 20 mg capsule Take 1 capsule by mouth once daily. Take along with 40 mg pill for a total of 60 mg daily FLUoxetine (PROZAC) 40 mg capsule Take 1 capsule by mouth once daily. conjugated estrogens (PREMARIN) vaginal cream Use 1 g vaginally two times a week. acetaminophen (TYLENOL EXTRA STRENGTH) 500 mg tablet Take 2 tablets by mouth every 6 hours as needed for pain. cetirizine (ZYRTEC) 10 mg tablet Take 1 tablet by mouth once daily. tiZANidine (ZANAFLEX) 4 mg tablet Take 1 tablet by mouth three times daily as needed (muscle spasms). omeprazole (PRILOSEC) 20 mg capsule Take 1 capsule by mouth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 ASSESSMENT: Willem Evans tolerated the session with no issues. She demonstrated improvements in pain and overall functional status . The patient will continue to benefit from ongoing skilled physicaltherapy to progress toward set goals. PLAN FOR NEXT VISIT: Will further upgrade reps of exs SUBJECTIVE: Patient Reason for Visit: Pt notes that she is pretty pleased with her progress. Notes that she is doing better with standing to prepare meals Pain: Pain Pain Level: 2 Pain Location: Low Back/Lumbar Spine - Left Description: Aching Frequency: Continuous Post Treatment Pain Post Treatment Pain Level: No Change Post Treatment Pain Location: Low Back/Lumbar Spine - Left Post Treatment Pain Description: Sore OBJECTIVE MEASURES WITH LEVEL OF FUNCTION: Pt transfers and ambulates with ease and no increased pain TREATMENT: Therapeutic Exercise: 1: TA 1x10 2: TA seated with LAQ slow and controlled cues given to pt. 1x10 B 3: TA seated with alternating hip [id number] 4: Ta seated with alternating arm lifts 1x12 5: green rep band trunk flexion 1x12 6: green rep band scapular retraction 1x12 7: seated hip adduction 1x10 Skilled Intervention: Patient was educated in proper exercise technique and purpose for exercises. Reviewed and educated patient on additions/changes for home exercise program . Skilled judgment was provided in selection of appropriate interventions. Correct performance of therapeutic exercises was facilitated with verbal and visual cuing. Patient education as noted. Home Exercise Program Assigned: 1: increase to 12 reps of all exs. Billing Therapeutic Exercise Treatment Minutes: 30 Total Treatment Time Minutes (timed/untimed): 30 Annabel Moore PT documented in this encounterJ.W. [facility]05-26-[facility] History of Present illness Narrative* Annabel Moore PT - 01/03/2022 2:50 PM EDT Episode Visit Count: 4 Therapist That Will Oversee The Plan Of Care: Annabel Moore PT Start of Care Date: 11/07/21 Onset Date: 10/15/21 Plan of Care Certification Date: 01/02/22 Next Certification Due Date: 02/14/22 Patient Identified by Name and Date of : Yes REHABILITATION AND SPORTS THERAPY PHYSICAL THERAPY PROGRESS REPORT PLAN OF CARE UPDATE: Assessment: Willem Evans demonstrates moderate improvement in rising from a chair, walking and physical activities. She hasprogressed toward goals. Patient continues to present with impairments in ADL's, independence in exercise and strength that interfere with . Current prognosis is Good due to: current objective clinical presentation . She will benefit from continued skilled therapy services tomeet the updated goals for this plan of care as noted below. Goals for Episode of Care: created on 11/07/21 through 12/20/21 updated 01/01/22 Independent in home exercises./ partially achieved Patient will decrease pain to 4/10 with functional activities to allow patient to improve ambulation and standing tolerance for ADLs./ partially achieved Stand / Walk without pain/symptoms increasing . partially achieved Sleep through night without pain/symptoms waking her up ./ achieved Maintain proper sitting posture throughout session/ partially achieved Patient will be able to tolerate functional activities without increased symptoms./partially achieved Knowledgeable regarding prophylaxis./ partially achieved Patient will increase strength of core to allow for improve ability to complete ADLs./ partially achieved Patient Goals: alleviate pain/ progressing. Planned Interventions, Frequency, and Duration: 1x/week, 4 weeks Total Number of Visits Planned: 4 Patient to be seen for Therapeutic exercise (50752);Neuromuscular re-education (26814);Manual therapy (71749);Therapeutic activities (48482);Self-chcf management (04128);Patient/Family/CaregiverEducation;Body Mechanics Training PLAN FOR NEXT VISIT: Will continue to review exs as needed for proper form SUBJECTIVE: Patient Reason for Visit: Pt reports that her back is tender and sore. Sleeping in bed now which is going well. Knows that she is much better but still having pain to stand and cook meals. Spine History Pain is Worse Always: Standing Pain: Pain Pain Level: 3 Pain Location: Low Back/Lumbar Spine - Left;Low Back/Lumbar Spine - Right Description: Aching Frequency: Continuous Post Treatment Pain Post Treatment Pain Level: No Change Post Treatment Pain Location: Low Back/Lumbar Spine - Right;Low Back/Lumbar Spine - Left Post Treatment Pain Description: Aching;Sore PROMIS Scales Higher is Better 02/20/2017 [facility] Mental - Percentile 13 % T-scores: mean of general population = 50. 5 points is clinically meaningfully difference Percentiles provide an indication of how the patient's score ranks in relation to the general population. Higher percentile rankings indicate better function/quality of life. 50th percentile is the average of the general population and indicates half of respondents had a worse score. T-scores: mean of general population = 50. 5 points is clinically meaningfully difference Percentiles provide an indication of how the patient's score ranks in relation to the general population. Higher percentile rankings indicate better function/quality of life. 50th percentile is the average of the general population and indicates half of respondents had a worse score. OBJECTIVE MEASURES WITH LEVEL OF FUNCTION: Posture / Alignment Posture: Increased thoracic kyphosis;Elevated shoulder -left Spine Observations R Lumbar Spine Palpation Tenderness: Paraspinals L Lumbar Spine Palpation Tenderness: Paraspinals Lumbar Spine AROM Lumbar Flexion: Minimal limitation Lumbar Extension: (to upright posture) LE Strength Trunk Strength: 3+/5 Gait Gait: Independent Gait Device: None Gait Observation: no deviations and normal wendy TREATMENT: Therapeutic Exercise: 1: TA 1x10 2: TA seated with LAQ slow and controlled cues given to pt. 2x10 B 3: TA seated with alternating hip flexion 2x10 4: Ta seated with alternating arm lifts 1x12 5: green rep band trunk flexion 1x12 pt required cues for form 6: green rep band scapular retraction 1x12 pt required cues for form 7: seated hip adduction 2x10 Skilled Intervention: Patient was educated in proper exercise technique and purpose for exercises. Reviewed and educated patient on additions/changes for home exercise program . Skilled judgment was provided in selection of appropriate interventions. Correct performance of therapeutic exercises was facilitated with verbal and visual cuing. Additional time necessary for additional instruction for form with exs due to pt having difficulty with recalling and performing exs properly . Billing Therapeutic Exercise Treatment Minutes: 38 Total Treatment Time Minutes (timed/untimed): 38 Annabel Moore PT documented in this encounterJ.W. [facility]05-16-2022 Instructions* Patient Instructions* Ani Núeñz Ma - 12/24/2021 4:00 PM EDT You can continue with Tylenol as needed, try taking 2 pills every 8 hours. Start Mobic 15 mg once a day. This is ok to take with the Tylenol. Use the Tizanidine 3 times per day as needed or just at bedtime, this is the muscle relaxant. This can cause drowsiness. Continue with Physical Therapy, heat and stretches. documented in this encounterJ.W. [facility]05-16-2022 History of Present illness Narrative* Citlaly العراقي MD - 12/24/2021 3:40 PM EDT Chief Complaint Patient presents with: 6 Month Exam HPI Willem Evans is a 76 year old female who presents here today for 6 month follow up. Here with her , [place]. Does not have an advance directive. No bowel, Gi, or urinary issues. Pt was having stomach pain and upset, was started on Prilosec 20 mg daily. Does have IBS issues. Follows with [facility]ER for Pessary maintenance and Premarin cream. YEIMI/Depression: Taking Prozac 20 mg and 40 mg daily. Doing well with the Prozac, no side effects. Pain: Has been doing PT for her back pain every week to every 2 weeks. She is still having issues with the back pain, it has improved some. She is doing her stretches from PT, using heat and taking 1,000 mg Tylenol every 6 hours. She has used a muscle relaxant but did not have any more refills on it. She used Celebrex but that caused constipation so can't take it. She is not able to do much walking without pain, fatigue, or weakness to the back. Lipid: Controlling with lifestyle. Taking Aspirin 81 mg daily. Past medical history, appointments, medications, allergies reviewed. Previous Medical History PAST MEDICAL HISTORY Diagnosis Date Allergic rhinitis, cause unspecified Generalized anxiety disorder with social component Irritable bowel syndrome mainly constipation Osteoporosis, unspecified per prior DEXA times 2 Overweight(278.02) Previous Surgical History PAST SURGICAL HISTORY Procedure Laterality Date COLONOSCOPY [address] ABEL, [facility], NORMAL LIG/TRNSXJ FLP TUBE ABDL/VAG APPR UNI/BI Tubal ligation she was 36 years old Family History FAMILY HISTORY Problem Relation Age of Onset Stroke Father at 85, healthy til then Breast Cancer Maternal Aunt roughly 40 Colon Cancer Other none Coronary Artery Disease Other none Diabetes Other none Patient Allergies ALLERGIES No Known Allergies Current Medications Current Outpatient Medications on File Prior to Visit Medication Sig omeprazole (PRILOSEC) 20 mg capsule Take 1 capsule by mouth daily before breakfast. 1/2 hr before meal. FLUoxetine (PROZAC) 20 mg capsule Take 1 capsule by mouth once daily. Take along with 40 mg pill for a total of 60 mg daily FLUoxetine HCl (PROZAC) 40 mg capsule Take 1 capsule by mouth once daily. MELATONIN ORAL Take 6 mg by mouth daily at bedtime. Black Cohosh 20 mg tab Take 1 tablet by mouth. DAILY MULTIVITAMIN TAB Take one(1) tablet daily. ASPIRIN 81 MG TAB Take one(1) tablet daily. No current facility-administered medications on file prior to visit. Social History Social History Tobacco Use Smoking status: Never Smoker Smokeless tobacco: Never Used Tobacco comment: Goes by Willem Vaping Use Vaping Use: Never used Substance Use Topics Alcohol use: No Drug use: No EXAM: BP 160/80 Pulse 72 Resp 14 Wt 73.3 kg (161 lb 8 oz) General Appearance: Well appearing, alert, in no acute distress, well-hydrated, well nourished. andOverweight. Back:indicates pain in left lower lumbar area and midline Lungs: Lungs clear to auscultation. No wheezing, rhonchi, rales.. Heart: RRR without murmur, gallop, or rubs. No ectopy. Health Maintenance List SHINGRIX VACCINE(1 of 2) Never done DTAP,TDAP,TD(1 - Tdap) due on 04/15/2007 ADVANCE DIRECTIVE DISCUSSION Never done DIABETES SCREEN due on 12/22/2023 BONE DENSITY Completed INFLUENZA Completed HEPATITIS C SCREENING Completed PNEUMOVAX AGE 65 AND OVER WITH 5YR LOOKBACK Completed COVID-19 VACCINE Completed MENINGOCOCCAL CONJUGATE Aged Out Data reviewed None ASSESSMENT/PLAN: 1. Mixed hyperlipidemia - ICD9: 272.2, ICD10: E78.2 (primary diagnosis) - to be determined upon return of lab results - Encouraged following a low fat, low cholesterol diet. - Discussed the benefits of regular aerobic exercise and weight loss. 2. Acute midline low back pain without sciatica - ICD9: 724.2, ICD10: M54.50 Decrease Tylenol to 1,000 mg every 8 hours Add Mobic 15 mg daily Add Tizanidine TID prn Follow up in 4-8 weeks if not improving 3. Major depressive disorder, recurrent, in full remission (HCC) - ICD9: 296.36, ICD10: F33.42 Stable Continue current medications. 4. Generalized anxiety disorder - ICD9: 300.02, ICD10: F41.1 Stable Continue current medications. Follow up in 6 months. I agree with the Chief Complaint, ROS, and Past Histories independently gathered by the clinical user support analyst and the remaining scribed note accurately describes my personal service to the patient. Medical Decision Making: Problems: Moderate: 2+ stable chronic illnesses Risk: Moderate: Drug management Medical Decision Making Level: 4 - Moderate Citlaly العراقي MD The documentation for this note was completed by Ani Núñez Ma acting as scribe for Citlaly العراقي MD. December 24, 2021 3:42 PM. Ani Núñez Ma documented in this encounterJ.W. [facility]04-27-2022 History of Present illness Narrative* Annabel Moore, PT - 12/05/2021 10:11 AM EDT Episode Visit Count: 3 Therapist That Will Oversee The Plan Of Care: Annabel Moore PT Start of Care Date: 11/07/21 Onset Date: 10/15/21 Plan of Care Certification Date: 11/07/21 Next Certification Due Date: 12/20/21 Patient Identified by Name and Date of : Yes REHABILITATION AND SPORTS THERAPY PHYSICAL THERAPY TREATMENT NOTE ASSESSMENT: Willem Evans tolerated the session with no issues. She demonstrated improvements in overall mobility and decreased pain . The patient will continue to benefit from ongoing skilled physical therapy to progress toward set goals. PLAN FOR NEXT VISIT: Continue to advance strengthening. POC SUBJECTIVE: Patient Reason for Visit: Pt notes that she hurt this morning but took some Tylenol anddid exs and now she is feeling pretty good. Notes that her tolerance to standing for meal prep is decreased but pain improves with sitting and she is able to resume activity Pain: Pain Pain Level: 3 Pain Location: Low Back/Lumbar Spine - Left;Low Back/Lumbar Spine - Right Description: Aching Frequency: Continuous Post Treatment Pain Post Treatment Pain Level: Better Post Treatment Pain Location: Low Back/Lumbar Spine - Left;Low Back/Lumbar Spine - Right OBJECTIVE MEASURES WITH LEVEL OF FUNCTION: Increased ease of transfers and gait speed TREATMENT: Therapeutic Exercise: 1: TA 1x10 2: TA seated with LAQ slow and controlled cues given to pt. 1x12 B 3: TA seated with alternating hip flexion 1x12 4: Ta seated with alternating arm lifts 1x12 5: green rep band trunk flexion 1x12 6: green rep band scapular retraction 1x12 7: seated hip adduction 2x10 Skilled Intervention: Patient was educated in proper exercise technique and purpose for exercises. Reviewed and educated patient on additions/changes for home exercise program . Skilled judgment was provided in selection of appropriate interventions. Provided written instruction for home exercise program to facilitate proper performance and compliance. Correct performance of therapeutic exercises was facilitated with verbal and visual cuing. Patient education as noted. Home Exercise Program Assigned: 1: green rep band trunk flexion 1x12 2: green rep band scapular retraction 1x12 3: increase reps 4: seated hip adduction Billing Therapeutic Exercise Treatment Minutes: 25 Total Treatment Time Minutes (timed/untimed): 25 Annabel Moore PT documented in this encounterJ.W. [facility]04-13-2022 History of Present illness Narrative* Annabel Moore PT - 11/21/2021 1:22 PM EDT Episode Visit Count: 2 Therapist That Will Oversee The Plan Of Care: Annabel Moore PT Start of Care Date: 11/07/21 Onset Date: 10/15/21 Plan of Care Certification Date: 11/07/21 Next Certification Due Date: 12/20/21 Patient Identified by Name and Date of : Yes REHABILITATION AND SPORTS THERAPY PHYSICAL THERAPY TREATMENT NOTE ASSESSMENT: Willem Evans tolerated the session with decreased pain. She demonstrated improvements in mobility, transfers, walking and centralization of pain . The patient will continue to benefit from ongoing skilled physical therapy to progress toward set goals. PLAN FOR NEXT VISIT: consider hip adduction seated with pillow SUBJECTIVE: Patient Reason for Visit: Pt notes that she still has pain in her back but only in one spot. able to sleep in bed. Pt reports that she has been doing the exs and used padded chair supportthat has massager in it several times a day which is helpful Pain: Pain Pain Level: 5 Pain Location: Low Back/Lumbar Spine - Left Description: Aching Frequency: Continuous Post Treatment Pain Post Treatment Pain Level: Better Post Treatment Pain Location: Low Back/Lumbar Spine - Left;Low Back/Lumbar Spine - Right Post Treatment Pain Description: Aching OBJECTIVE MEASURES WITH LEVEL OF FUNCTION: Increased wendy of gait . TREATMENT: Therapeutic Exercise: 1: TA 1x10 2: TA seated with LAQ slow and controlled cues given to pt. 1x10 B 3: TA seated with alternating hip flexion 1x10 4: Ta seated with alternating arm lifts 1x10 5: green rep band trunk flexion 1x10 Skilled Intervention: Patient was educated in proper exercise technique and purpose for exercises. Reviewed and educated patient on additions/changes for home exercise program . Skilled judgment was provided in selection of appropriate interventions. Provided written instruction for home exercise program to facilitate proper performance and compliance. Correct performance of therapeutic exercises was facilitated with verbal and visual cuing. Patient education as noted. Home Exercise Program Assigned: 1: TA seated with alternating hip flexion 1x10 2: Ta seated with alternating arm lifts 1x10 3: green rep band trunk flexion 1x10 Billing Therapeutic Exercise Treatment Minutes: 25 Total Treatment Time Minutes (timed/untimed): 25 Annabel Moore PT documented in this encounterJ.W. [facility]04-13-2022 Miscellaneous Notes* Telephone Encounter - Ani Núñez Ma - 11/21/2021 9:56 AM EDT Spoke with pt, notified her of results. She is doing a little better. She slept all night last night. She did have PT yesterday. States today she is tired and weak, has some back pain. Ani Núñez Ma * Telephone Encounter - Ani Núñez Ma - 11/21/2021 9:53 AM EDT Tried to call pt, get message that phone is off the hook. Will try to call back later. Ani Núñez Ma * Telephone Encounter - Citlaly العراقي MD - 11/20/2021 5:15 PM EDT Please notify patient that her lab work looked OK. How is she feeling this week? Citlaly العراقي MD documented in this encounterJ.W. [facility]04-07-2022 History of Present illness Narrative* Citlaly العراقي MD - 11/15/2021 2:20 PM EDT Chief Complaint Patient presents with: Abdominal Pain Nausea HPI Willem Evans is a 76 year old female who presents here today for Above Complaints. Pt scheduled for a same day visit. She's here today with her . She doesn't know what to do and wants to get better due to her doing everything currently. Pt continues to have mid lower abdominal pain x 1 month, she believes. Has been seen by ER twice with no abnormality noted on work up for her back and GI issues. Had abd CT that was normal. No longertaking [place] (or Celebrex/Tizanidine) for back pain, but continues to have this. Describes this pain as an ache but no longer having the sharp/spasm type pain. Was to do exercises from PT, but due tolack of energy she's not been completing this. Takes Tylenol 2 tabs po every 4 hours. Pt reports loose stools, at times liquid ranging from once to several times per day. Denies any foul odor. Describes stool as dark colored but not black or tarry. Denies seeing any blood. She ratespain a 5/10, described as tender, sore, bloated and pressure like, never sharp or stabbing. Has tried doing a blander diet over the past several days with no improvement in symptoms. Spouse states that she has decreased appetite, at times eating very minimally. She will eat a couple bites of food and will suddenly vomit. This does not happen always, but most recently at a restaurant. Has lost almost 10 lbs total, 5 lbs since her visit on 11/01/21. Feels very weak and lethargic. Anxiety - Pt back on increased dosage of Prozac 60 mg once daily (40 + 20). Spouse feels this helpskeep her anxiety and depression much better controlled. She's went through multiple medications in the past that never helped her. Past medical history, appointments, medications, allergies reviewed. Previous Medical History PAST MEDICAL HISTORY Diagnosis Date Allergic rhinitis, cause unspecified Generalized anxiety disorder with social component Irritable bowel syndrome mainly constipation Osteoporosis, unspecified per prior DEXA times 2 Overweight(278.02) Previous Surgical History PAST SURGICAL HISTORY Procedure Laterality Date COLONOSCOPY [address] ABEL, [facility], NORMAL LIG/TRNSXJ FLP TUBE ABDL/VAG APPR UNI/BI Tubal ligation she was 36 years old Family History FAMILY HISTORY Problem Relation Age of Onset Stroke Father at 85, healthy til then Breast Cancer Maternal Aunt roughly 40 Colon Cancer Other none Coronary Artery Disease Other none Diabetes Other none Patient Allergies ALLERGIES No Known Allergies Current Medications Current Outpatient Medications on File Prior to Visit Medication Sig FLUoxetine (PROZAC) 20 mg capsule Take 1 capsule by mouth once daily. Take along with 40 mg pill for a total of 60 mg daily celecoxib (CELEBREX) 100 mg capsule Take 1 capsule by mouth twice daily. tiZANidine (ZANAFLEX) 4 mg tablet Take 1 tablet by mouth three times daily as needed (muscle spasms). FLUoxetine HCl (PROZAC) 40 mg capsule Take 1 capsule by mouth once daily. conjugated estrogens (PREMARIN) vaginal cream Use 1 g vaginally two times a week. acetaminophen (TYLENOL) 325 mg cap Take by mouth. MELATONIN ORAL Take 6 mg by mouth daily at bedtime. Black Cohosh 20 mg tab Take 1 tablet by mouth. DAILY MULTIVITAMIN TAB Take one(1) tablet daily. ASPIRIN 81 MG TAB Take one(1) tablet daily. No current facility-administered medications on file prior to visit. Social History Social History Tobacco Use Smoking status: Never Smoker Smokeless tobacco: Never Used Tobacco comment: Goes by Willem [employer] Use Vaping Use: Never used Substance Use Topics Alcohol use: No Drug use: No EXAM: BP 154/80 Pulse 78 Resp 16 Wt 72.9 kg (160 lb 12.8 oz) SpO2 96% General Appearance: Well appearing, alert, in no acute distress, well-hydrated, well nourished.. Lungs: Lungs clear to auscultation. No wheezing, rhonchi, rales.. Heart: RRR without murmur, gallop, or rubs. No ectopy. Abdomen: Soft, mild lower abd tenderness, no guarding or rebound Health Maintenance List SHINGRIX VACCINE(1 of 2) Never done DTAP,TDAP,TD(1 - Tdap) due on 04/15/2007 ADVANCE DIRECTIVE DISCUSSION Never done DIABETES SCREEN due on 12/22/2023 BONE DENSITY Completed INFLUENZA Completed HEPATITIS C SCREENING Completed PNEUMOVAX AGE 65 AND OVER WITH 5YR LOOKBACK Completed COVID-19 VACCINE Completed MENINGOCOCCAL CONJUGATE Aged Out Data reviewed Epic ASSESSMENT/PLAN: 1. Lower abdominal pain - ICD9: 789.09, ICD10: R10.30 (primary diagnosis) Possible gastritis from medication use - Begin treatment with Prilosec 20 mg QD 2. Loose stools - ICD9: 787.7, ICD10: R19.5 - Start Prilosec daily 3. Nausea and vomiting, unspecified vomiting type - ICD9: 787.01, ICD10: R11.2 - As noted above - Check labs 4. Fatigue, unspecified type - ICD9: 780.79, ICD10: R53.83 - Check labs 5. Decreased appetite - ICD9: 783.0, ICD10: R63.0 - Monitor 6. Weight loss - ICD9: 783.21, ICD10: R63.4 - Monitor Check labs today, labs orders given to go to [facility]. Update office next week with how she is feeling I agree with the Chief Complaint, ROS, and Past Histories independently gathered by the clinical user support analyst and the remaining scribed note accurately describes my personal service to the patient. Medical Decision Making: Problems: Moderate: New problem with uncertain prognosis Data: Unique test(s) ordered: 2 Risk: Moderate: Drug management Medical Decision Making Level: 4 - Moderate Citlaly العراقي MD The documentation for this note was completed by Gustavo Marin Ma acting as scribe for Citlaly العراقي MD. November 15, 2021 2:31 PM. Gustavo Marin Ma documented in this encounterJ.W. [facility] History of Present illness Narrative* Annabel Moore, PT - 11/08/2021 9:06 AM EDT Episode Visit Count: 1 Therapist That Will Oversee The Plan Of Care: Annabel Moore PT Start of Care Date: 11/07/21 Onset Date: 10/15/21 Plan of Care Certification Date: 11/07/21 Next Certification Due Date: 12/20/21 Patient Identified by Name and Date of : Yes [facility] THERAPY PHYSICAL THERAPY EVALUATION PLAN OF CARE: Assessment: Willem Evans presents with diagnosis of acute midline back pain without sciatica that interferes with sleeping;rising from a chair;walking in the house;walking in the community;stair negotiation;lifting;physical activities . She presents with impairments in ADL's, gait, independence in exercise, overall function, strength and tissue tenderness. . Prognosis for therapy is Good due to: current objective clinical presentation;within-session changes .Pt with good response to activities performed in therapy today She will benefit from skilled therapy services to meet the goals established for this plan of care as noted below. Classification Low Back Pain Subgroup Classification: Core stabilization subgroup: recommended visits 10. Core Stabilization Subgroup Classification based on: pain with transitional movements Goals for Episode of Care: created on 11/07/21 through 12/20/21 Independent in home exercises. Patient will decrease pain to 4/10 with functional activities to allow patient to improve ambulation and standing tolerance for ADLs. Stand / Walk without pain/symptoms increasing . Sleep through night without pain/symptoms waking her up . Maintain proper sitting posture throughout session Patient will be able to tolerate functional activities without increased symptoms. Knowledgeable regarding prophylaxis. Patient will increase strength of core to allow for improve ability to complete ADLs. Patient Goals: alleviate pain Planned Interventions, Frequency, and Duration: Current Frequency: 1x/week Duration: 4 weeks Total Number of Visits Planned: 4 Planned Treatment Interventions: Therapeutic exercise (46462);Manual therapy (03707);Neuromuscular re-education (41157);Self-chcf management (66825);Patient/Family/Caregiver Education;Body Mechanics Training;Gait Training (17683) PLAN FOR NEXT VISIT: Will add TA exs in sitting, consider manual traction in future if tolerates supine Patient demonstrates good understanding of plan of care and treatment. The above goals and plan of care were discussed and agreed upon by patient/family. SUBJECTIVE: Willem Evans is a 76 year old female seen today for Pt notes that she has pain in low back , not stabbing pain in low back , unable to lie down in bed and not getting rest. Has been sleeping in chair. Patient Goals: alleviate pain Functional Limitations: sleeping;rising from a chair;walking in the house;walking in the community;stair negotiation;lifting;physical activities Prior Level of Function: Independent without limitations Relevant History Preferred Language: Jamaican Employment: Retired Home Environment Patient Lives With: Spouse Home Type: Apt/Condo Entry To Home: No Stairs Tub/Shower Type: has to step into Intake Information: Prescription present Previous Treatment: Pain meds ;NSAIDs ;Muscle relaxer Red Flags Vertebral Fracture Red Flags: Female;Age >70 Vertebral Fracture Clinical Reasoning: Proceed with caution due to the above (1- 2) risk factors Spine History Symptoms Location at Onset: Back Symptoms Since Onset: Unchanging Pain is Worse Always: Bending;Walking;On the Move;Lying Pain is Better Sometimes: Sitting Sleeping Position: (unable to sleep in bed) Sleep Affected by Pain: Pain keeps from falling asleep Pain: Pain Pain Level: 9 Pain Location: Low Back/Lumbar Spine - Left;Low Back/Lumbar Spine - Right Description: Aching Frequency: Continuous Post Treatment Pain Post Treatment Pain Level: No Change Post Treatment Pain Location: Low Back/Lumbar Spine - Right;Low Back/Lumbar Spine - Left Post Treatment Pain Description: Aching PROMIS Scales Higher is Better 02/20/2017 [facility] Mental - Percentile 13 % T-scores: mean of general population = 50. 5 points is clinically meaningfully difference Percentiles provide an indication of how the patient's score ranks in relation to the general population. Higher percentile rankings indicate better function/quality of life. 50th percentile is the average of the general population and indicates half of respondents had a worse score. T-scores: mean of general population = 50. 5 points is clinically meaningfully difference Percentiles provide an indication of how the patient's score ranks in relation to the general population. Higher percentile rankings indicate better function/quality of life. 50th percentile is the average of the general population and indicates half of respondents had a worse score. OBJECTIVE MEASURES WITH LEVEL OF FUNCTION: Posture / Alignment Posture: Decreased thoracic kyphosis;Decreased lumbar lordosis Sitting Posture: Fair Effects of Posture Correction: improved pain with use of towel roll Spine Observations R Lumbar Spine Palpation Tenderness: Paraspinals L Lumbar Spine Palpation Tenderness: Paraspinals Lumbar Spine AROM Lumbar Flexion: Moderate limitation LE Strength Trunk Strength: 3+/5 R Knee Extension (L3): 4-/5 L Knee Extension (L3): 4-/5 Functional Strength Functional Strength: Pt painful and limited with sit to stand, walking for periords of time, standing Gait Weight Bearing Status: FWB Gait: Independent Gait Device: None Gait Deviations: (antalgic and decreased wendy , improved with walker) Education: Education Learning Preferences: Demonstration;Explanation;Performance;Printed Materials Barriers: None Learning/educational needs: Home exercise program;Plan of Care Education Provided: Yes, see treatment interventions for education provided Education Provided To: Patient;Family ( present throughout session) Education Mode/Type: Demonstration;Explanation/Discussion;Literature/Printed Materials;Performance Response to Education/Teach Back: States/Identifies;Return Demonstration TREATMENT: PT Treatment Interventions: Therapeutic Exercise;Manual Therapy;Self-[facility] Management;Gait Training Evaluation Therapeutic Exercise: 1: instruction in TA 1x10 to perform several times per day 2: LAQ 1x10 seated in chair with towel roll and pillow for postural correction Skilled Intervention: Patient was educated in proper exercise technique and purpose for exercises. Skilled judgment was provided in selection of appropriate interventions. Provided written instruction for home exercise program to facilitate proper performance and compliance. Correct performance of therapeutic exercises was facilitated with verbal and visual cuing. Patient education as noted. Manual Therapy: Soft Tissue Mobilization: seated on plinth high low, use of lacrosse ball , push to tolerance x8 min with instruction in use of ball at home for same Skilled Intervention: Manual skills to improve joint mobility, ROM, and decrease pain. Utilized anatomy knowledge of the therapist, and assessment of patient's response to intervention. Gait Trainin: instruction in use of wheeled walker, included instruction in proper height of walker and propergait pattern . Utilized walker in dept with decreased back pain Skilled Intervention: Patient was provided supervision during pre-gait/gait training to prevent falls and insure safety. Facilitated proper gait cycle with the use of verbal and visual cues for correction of gait deviations identified in the objective section above. Skilled judgment used to assess selection, proper sizing and proper use of assistive device. Education provided to patient regarding the proper sequence for level surface negotiation. Self-[facility] Management: 1: instruction in postural correction use of towel roll with improvement of pain 2: discussed importance of movement and activity as tolerated to increase strength, encouraged use of walker for short walks in house frequently as tolerated Skilled Intervention: Skilled judgment in the selection of proper modification for activity of daily living/home management based on clinical presentation, deficits, and needs. Physical assistance was provided during education for modifications and patient safety. Educated the patient regarding recommendations and provided written instruction to facilitate compliance. Provided written instruction for activities of daily living techniques to facilitate proper performance and compliance. Reviewed patient specific diagnosis in relation to activities of daily living/home management. Home Exercise Program Assigned: 1: as outlined above Billing * Evaluation Low Complexity: 1 Unit Therapeutic Exercise Treatment Minutes: 10 Manual TherapyTreatment Minutes: 8 Self-Care/Home Management Treatment Minutes: 10 Gait Training Treatment Minutes: 8 Total Treatment Time Minutes (timed and untimed codes) : 50 Annabel Moore PT documented in this encounterJ.W. [facility]03-30-[facility] History of Past illness Narrative* Problem Noted Date Resolved Date Acute midline low back pain without sciatica 03/14/2022 documented as of this encounter (statuses as of 05/07/2022) [facility] of Past illness Narrative* Problem Noted Date Resolved Date Acute midline low back pain without sciatica 03/14/2022 documented as of this encounter (statuses as of 06/28/2022) [address]30-2022 History of Past illness Narrative* Problem Noted Date Resolved Date Acute midline low back pain without sciatica 03/14/2022 documented as of this encounter (statuses as of 07/02/2022) [address]30-2022 History of Past illness Narrative* Problem Noted Date Resolved Date Acute midline low back pain without sciatica 03/14/2022 documented as of this encounter (statuses as of 07/31/2022) [facility] of Past illness Narrative* Problem Noted Date Resolved Date Acute midline low back pain without sciatica 03/14/2022 documented as of this encounter (statuses as of 08/13/2022) [facility] of Past illness Narrative* Problem Noted Date Resolved Date Acute midline low back pain without sciatica 03/14/2022 documented as of this encounter (statuses as of 11/05/2022) [address]2022 History of Past illness Narrative* Problem Noted Date Resolved Date Acute midline low back pain without sciatica 03/14/2022 documented as of this encounter (statuses as of 11/05/2022) [address]2022 History of Past illness Narrative* Problem Noted Date Resolved Date Acute midline low back pain without sciatica 03/14/2022 documented as of this encounter (statuses as of 11/14/2022) [address]2022 History of Past illness Narrative* Problem Noted Date Resolved Date Acute midline low back pain without sciatica 03/14/2022 documented as of this encounter (statuses as of 02/14/2023) [facility] of Past illness Narrative* Problem Noted Date Diagnosed Date Resolved Date Acute midline low back pain without sciatica 2 03/14/2022 documented as of this encounter (statuses as of 04/10/2023) [facility] of Past illness Narrative* Problem Noted Date Diagnosed Date Resolved Date Acute midline low back pain without sciatica 2 03/14/2022 documented as of this encounter (statuses as of 04/11/2023) [facility] of Past illness Narrative* Problem Noted Date Diagnosed Date Resolved Date Acute midline low back pain without sciatica 2 03/14/2022 documented as of this encounter (statuses as of 04/18/2023) [facility] of Past illness Narrative* Problem Noted Date Diagnosed Date Resolved Date Acute midline low back pain without sciatica 2 03/14/2022 documented as of this encounter (statuses as of 04/23/2023) [facility] of Past illness Narrative* Problem Noted Date Diagnosed Date Resolved Date Acute midline low back pain without sciatica 2 03/14/2022 documented as of this encounter (statuses as of 05/06/2023) [facility] of Past illness Narrative* Problem Noted Date Diagnosed Date Resolved Date Acute midline low back pain without sciatica 2 03/14/2022 documented as of this encounter (statuses as of 05/20/2023) [address]-2022 History of Past illness Narrative* Problem Noted Date Diagnosed Date Resolved Date Acute midline low back pain without sciatica 2 03/14/2022 documented as of this encounter (statuses as of 05/23/2023) [address]30-2022 History of Past illness Narrative* Problem Noted Date Diagnosed Date Resolved Date Acute midline low back pain without sciatica 2 03/14/2022 documented as of this encounter (statuses as of 06/15/2023) [place] [address]30-[address]22 History of Past illness Narrative* Problem Noted Date Diagnosed Date Resolved Date Acute midline low back pain without sciatica 2 03/14/2022 documented as of this encounter (statuses as of 06/15/2023) [place] [address]30-[address]22 History of Past illness Narrative* Problem Noted Date Diagnosed Date Resolved Date Acute midline low back pain without sciatica 2 03/14/2022 documented as of this encounter (statuses as of 06/18/2023) [place] [address]22 History of Past illness Narrative* Problem Noted Date Diagnosed Date Resolved Date Acute midline low back pain without sciatica 2 03/14/2022 documented as of this encounter (statuses as of 06/25/2023) [place] [address]30-[address]22 History of Past illness Narrative* Problem Noted Date Diagnosed Date Resolved Date Acute midline low back pain without sciatica 2 03/14/2022 documented as of this encounter (statuses as of 06/26/2023) [facility] of Past illness Narrative* Problem Noted Date Diagnosed Date Resolved Date Acute midline low back pain without sciatica 2 03/14/2022 documented as of this encounter (statuses as of 06/27/2023) [facility] of Past illness Narrative* Problem Noted Date Diagnosed Date Resolved Date Acute midline low back pain without sciatica 2 03/14/2022 documented as of this encounter (statuses as of 07/23/2023) [address]30-[address]22 History of Past illness Narrative* Problem Noted Date Diagnosed Date Resolved Date Acute midline low back pain without sciatica 2 03/14/2022 documented as of this encounter (statuses as of 10/22/2023) [address]30-[address]22 History of Past illness Narrative* Problem Noted Date Diagnosed Date Resolved Date Acute midline low back pain without sciatica 2 03/14/2022 documented as of this encounter (statuses as of 10/27/2023) [address]30-[address]22 History of Past illness Narrative* Problem Noted Date Diagnosed Date Resolved Date Acute midline low back pain without sciatica 2 03/14/2022 documented as of this encounter (statuses as of 10/31/2023) [facility] of Past illness Narrative* Problem Noted Date Diagnosed Date Resolved Date Acute midline low back pain without sciatica 2 03/14/2022 documented as of this encounter (statuses as of 11/19/2023) [facility] History of Present illness Narrative* Annie Medina RT(R) - 05/21/2021 12:00 PM EDT Radiology Service Progress Note PATIENT NAME: Willem Evans DATE OF SERVICE: May 21, 2021 TIME: 12:14 PM PATIENT IDENTITY VERIFICATION COMPLETED USING TWO (2) IDENTIFIERS: Name and Date of confirmedby patient verbally. FALL SCREENING: Has the patient had 2 falls in the last year or 1 fall with injury or currently using an Ambulatory Assistive Device (Walker, Cane, Wheelchair, Crutches, etc.)? No PATIENT GENDER DATA: Female. status: : No status: NO. PATIENT RELEVANT IMPLANT DATA REVIEWED: Not Applicable RADIOLOGY DEPARTMENT: General X-ray: Exam(s) Completed: Lower Extremity X- Ray(s): Heel, Right PERIPHERAL IV DATA: Not applicable SIGNED BY: RT Cathy(R) May 21, 2021 12:14 PM documented in this encounterJ.W. Ruby [facility] HospitalDischarge summary Author Tabitha Whitfield [facility] Note Date/Time February 26, 2025 6:28 pm [facility] Medical Records Department [address] [place] [address] Transfer to [facility] MR#: [id number] Acct: [id number] Name: WILLEM EVANS Rep #:[id number] : 1945 79 From: Tabitha Whitfield MD PCP: Dr. Citlaly العراقي MD Status:AD M IN Certification of patient admission REQUIRED AT TIME OF ADMISSION. I CERTIFY THAT POST-HOSPITAL ECF SERVICES ARE REQUIRED TO BE GIVEN ON AN IN-PATIENT BASIS BECAUSE OF THE ABOVE NAMED PATIENT'S NEED FOR CUSTODIAL CARE ON A CONTINUING BASIS FOR THE CONDITION(S) FOR WHICH HE/SHE WAS RECEIVING IN-PATIENT HOSPITAL SERVICES PRIOR TO HIS/HER TRANSFER TO THE ECF. 02/26/25 1058<Electronically signed by Tabitha Whitfield MD> Diet Diet Order/Speech Therapy: INPATIENT Hospital Diet / Speech Therapy Order(s) 02/25/25 13:17 Diet: Regular - General Food consistency:: Pureed Liquid Consistency:: [place]/Mildly Thick Speech Therapy Comments: TOTAL FEED, Liquid by tsp only, Meds crushed in DC O2, CPAP, BIPAP needs Home O2 Discharge instructions: No Problem/Diagnosis (1) Acute right MCA stroke: Status: Acute Code(s): I63.511 - Cerebral infarction due to unspecified occlusion or stenosis of right middle cerebral artery Plan Patient is a 79-year-old female presenting with left-sided weakness 1. Acute CVA ? Patient presented with left facial droop with left-sided weakness. Imaging studies obtained in the ED did show a high-grade stenosis in the proximal M1 horizontal component of the right middle cerebral, measuring 0.5 cm in length. Patient was accepted for transfer to [facility] regarding her large vessel occlusion for intervention patient family however declined for patient johanny transferred. Patient admitted to a monitored bed requested for PT/OT/ST evaluation. Patient started on antiplatelet therapy with aspirin as well as atorvastatin. 2D echo and an MRI ordered as part of patient's evaluation. Consult placed to [facility]. Patient was not a candidate for TNK given the fact that her last known well is unknown ? 02/25/2025; patient scheduled to undergo cookie swallow and MRI 02/26/2025; MRI 1. Multiple foci of restricted diffusion in the right cerebral hemisphere consistent with acute embolic infarctions. 2. Multiple chronic cortical and lacunar infarctions as described. 3. Cerebral atrophy. [facility] patient to be discharged on high-dose statin therapy aspirin as well as Plavix (patient daughter initially was against her mom receiving Plavix however patient's did agree for Plavix to be given after discussion with [facility]) 2D echo ?Mild concentric left ventricular hypertrophy. Mild inferior hypokinesis. Septal wall motion consistent with left bundle branchblock. Estimated LVEF 55%. Stage I diastolic dysfunction. Mild (1+) aortic valve insufficiency. #2. Previous CVA ? Patient did receive TNK and transferred to [facility] where no intervention was doneregarding her high-grade stenosis in the proximal M1?right MCA 3. Essential hypertension ? Will proceed permissive hypertension protocol 4. Depression with anxiety ? Patient is on fluoxetine as well as buspirone 5. Dementia ? Patient is on memantine 10 mg twice daily will resume once home meds have beenreconciled 6. Anemia ? Secondary to chronic disorder monitoring H&H and transfuse if patient becomes symptomatic or hemoglobin falls below 7 7. DVT prophylaxis ? Subcu Lovenox Time spent in the patient's overall evaluation,decision-making process, review of diagnostic data, adjustment of management, discussion with other providers, nursing nursing and ancillary staff involved in patient's care documentation, 38 Minutes Allergies/Procedures Done in Hospital Allergies No Known Allergies Allergy (Verified 02/24/25 09:29) Type of Care/Length of Stay Estimated LOS: Convalescent Care Less Than 30 days Type of Care Needed: Skilled Rehab Potential: Good Prognosis: Good Additional Orders/Day of Discharge Day of Discharge: 02/26/25 Dietary and Speech Recommendations Dietitian Recommendations/Changes: Recommend advanced diet as tolerate to cardiac per GEOLOGICAL DRAFTER recommendations. PO needs to be established. Will monitor weight trends. Discharge Plan Admission Admit Date/Time: 02/24/25 12:15 Attending Provider: Tabitha Whitfield Primary Care Provider: Citlaly العراقي Consulting Providers: Fabrice Trevizo; Le Noble; Sandy Eugene; Marva Mattson; Salud Sinclair; Richard Lemos; Mary Kay Patel; Zac Mares; Derrell Bahena; Donny Cowan; Teresa Marcelino; Krzysztof Mauro; Marga Lam; Nathanael Walker; Steff Peñaloza; Damon Andres; Lesia Montague; Billy Alexander; Anila Tejada; Ramon Doyle Discharge Orders/Prescriptions Prescriptions: New potassium chloride 20 mEq tablet,ER particles/crystals 20 meq PO DAILY Qty: 30 0RF clopidogrel [Plavix] 75 mg tablet 75 mg PO DAILY Qty: 90 0RF Continued fluoxetine 40 mg capsule 60 mg PO DAILY Patient Comments: TAKE 1 CAPSULE BY MOUTH ONCE DAILY multivitamin Tablet 1 tab PO DAILY aspirin 81 mg tablet,chewable 1 tab PO DAILY atorvastatin 40 mg tablet 40 mg PO QHS fluoxetine 20 mg capsule 60 mg PO DAILY primidone [Mysoline] 50 mg tablet 25 mg PO QHS buspirone 10 mg tablet 10 mg PO TID memantine 10 mg tablet 10 mg PO BID melatonin 10 mg capsule 10 mg PO QHS PRN (Reason: sleep) sennosides [Evac-U-Gen (sennosides)] 8.6 mg tablet 17.2 mg PO BID PRN (Reason: constipation) polyethylene glycol 3350 [ClearLax] 17 gram/dose powder 17 g PO DAILY PRN (Reason: constipation) trazodone 50 mg tablet 50 mg PO QHS gabapentin 100 mg capsule 100 mg PO TID PRN PRN (Reason: for pain) losartan 25 mg tablet 25 mg PO DAILY Referrals / Follow Up: Citlaly العراقي MD [Primary Care Provider] - Disposition Disposition (needs filled in before D/C Order can be placed): [facility] 02/26/25 1058 <Electronically signed by Tabitha Whitfield MD> Cosigner Signature (if applicable): CC: Marva Mattson; Marga Lam; Damon Andres; Salud Sinclair MD; Sandy Eugene MD; Fabrice Trevizo MD; Dr. Le Noble MD; Dr. Richard Lemos MD; Dr. Mary Kay Patel MD; Dr. Derrell Bahena MD; Dr. Zac Mares MD; Dr. Donny Cowan MD; Dr. Citlaly العراقي MD; Dr. Krzysztof Mauro DO; Dr. Steff Peñaloza MD; Dr. Nathanael Walker MD; Dr. Lesia Montague MD; Dr. Billy Alexander MD; Dr. Anila Tejada MD; Teresa Marcelino DO; Ramon Doyle MD ~ [facility] Work Phone: Evaluation note* Diagnosis Acute midline low back pain without sciatica [facility] Diagnosis Lower abdominal pain- Primary Abdominal pain, other specified site Loose stools Abnormal feces Nausea and vomiting, unspecified vomiting type Fatigue, unspecified type Decreased appetite Anorexia Weight loss Loss of weight [facility] Diagnosis Acute midline low back pain without sciatica- Primary [facility] Work [facility]: Evaluation note* Diagnosis Mixed hyperlipidemia- Primary Acute midline low back pain without sciatica Major depressive disorder, recurrent, in full remission (HCC) Major depressive disorder, recurrent episode, in full remission Generalized anxiety disorder [facility] Diagnosis Acute midline low back pain without sciatica- Primary [facility]* Diagnosis Acute midline low back pain without sciatica- Primary [facility]* Diagnosis Cystocele with prolapse [facility]* Diagnosis Pessary maintenance- Primary Fitting and adjustment of other device Female genital prolapse, unspecified type [facility]* Diagnosis Female genital prolapse, unspecified type- Primary Pessary maintenance Fitting and adjustment of other device [facility]* Diagnosis GENERALIZED ANXIETY DIS- Primary Generalized anxiety disorder Mixed hyperlipidemia Irritable bowel syndrome, unspecified type Major depressive disorder, recurrent, in full remission (HCC) Major depressive disorder, recurrent episode, in full remission Osteoporosis, unspecified Need for influenza vaccination Need for prophylactic vaccination and inoculation against influenza Memory change Memory loss Cognitive impairment, mild, so stated Mild cognitive impairment, so stated [facility]* Diagnosis Female genital prolapse, unspecified type- Primary Pessary maintenance Fitting and adjustment of other device [facility]* Diagnosis Female genital prolapse, unspecified type- Primary Pessary maintenance Fitting and adjustment of other device [facility]* Diagnosis Cystocele with prolapse- Primary Female genital prolapse, unspecified type Vaginal inflammation from pessary, initial encounter ([facility]) Pessary maintenance Fitting and adjustment of other device [facility]* Diagnosis PMB (postmenopausal bleeding)- Primary Postmenopausal bleeding Vaginal inflammation from pessary, initial encounter ([facility]) Pessary maintenance Fitting and adjustment of other device Female genital prolapse, unspecified type [facility]* Diagnosis Memory loss- Primary Memory change Memory loss Hearing loss, unspecified hearing loss type, unspecified laterality [facility]* Diagnosis Cystocele with prolapse [facility] Diagnosis Cystocele with prolapse- Primary Pessary maintenance Fitting and adjustment of other device [facility] Diagnosis Memory change Memory loss Memory loss [facility]* Diagnosis Cognitive impairment, mild, so stated Mild cognitive impairment, so stated [facility]* Diagnosis Memory loss- Primary Dementia without behavioral disturbance, psychotic disturbance, mood disturbance, or anxiety, unspecified dementia severity, unspecified dementia type (HCC) Lacunar infarction (HCC) Unspecified cerebral artery occlusion with cerebral infarction [facility]* Diagnosis Generalized weakness- Primary Other malaise and fatigue Chills Chills (without fever) Acute cystitis with hematuria Acute cystitis [facility]* Diagnosis Cystocele with prolapse- Primary Pessary maintenance Fitting and adjustment of other device documented [facility]* Diagnosis Female genital prolapse, unspecified type- Primary Cystocele with prolapse Pessary maintenance Fitting and adjustment of other device documented [facility]* Diagnosis Presence of pessary- Primary Other postprocedural status [facility] Diagnosis Prediabetes- Primary Other abnormal glucose Generalized anxiety disorder Major depressive disorder, recurrent, in full remission (HCC) Major depressive disorder, recurrent episode, in full remission Dementia without behavioral disturbance (HCC) Dementia, unspecified, without behavioral disturbance Mixed hyperlipidemia documented [facility]* Diagnosis Dementia without behavioral disturbance, psychotic disturbance, mood disturbance, or anxiety, unspecified dementia severity, unspecified dementia type (HCC)- Primary Lacunar infarction (HCC) Unspecified cerebral artery occlusion with cerebral infarction [facility]* Diagnosis Cystocele with prolapse- Primary Pessary maintenance Fitting and adjustment of other device documented [facility]* Diagnosis Cystocele with prolapse Prediabetes- Primary Other abnormal glucose Generalized anxiety disorder Major depressive disorder, recurrent, in full remission (HCC) Major depressive disorder, recurrent episode, in full remission Dementia without behavioral disturbance (HCC) Dementia, unspecified, without behavioral disturbance Mixed hyperlipidemia documented [facility]* Diagnosis Prediabetes- Primary Other abnormal glucose Agitation Other and unspecified special symptom or syndrome, not elsewhere classified Generalized anxiety disorder Major depressive disorder, recurrent, in full remission (HCC) Major depressive disorder, recurrent episode, in full remission Dementia without behavioral disturbance (HCC) Dementia, unspecified, without behavioral disturbance Mixed hyperlipidemia documented [facility]* Diagnosis Agitation- Primary Other and unspecified special symptom or syndrome, not elsewhere classified Dementia without behavioral disturbance (HCC) Dementia, unspecified, without behavioral disturbance [facility]* Diagnosis Compression fracture of L1 vertebra with routine healing, subsequent encounter- Primary Dementia without behavioral disturbance (HCC) Dementia, unspecified, without behavioral disturbance Generalized anxiety disorder Gastrointestinal hemorrhage, unspecified gastrointestinal hemorrhage type Chronic insomnia Insomnia, unspecified [facility]* Diagnosis Encounter for fitting and adjustment of pessary- Primary Fitting and adjustment of other device Cervical prolapse Uterine prolapse without mention of vaginal wall prolapse Vaginal atrophy Postmenopausal atrophic vaginitis documented [facility]* Diagnosis Cervical prolapse- Primary Uterine prolapse without mention of vaginal wall prolapse Cystocele with prolapse Pessary maintenance Fitting and adjustment of other device documented [facility]* Diagnosis Dementia without behavioral disturbance, psychotic disturbance, mood disturbance, or anxiety, unspecified dementia severity, unspecified dementia type (HCC)- Primary Lacunar infarction (HCC) Unspecified cerebral artery occlusion with cerebral infarction Memory loss Memory change Memory loss documented [facility]* Diagnosis Elevated blood pressure reading without diagnosis of hypertension- Primary Dementia without behavioral disturbance (HCC) Dementia, unspecified, without behavioral disturbance Generalized anxiety disorder Major depressive disorder, recurrent, in full remission (HCC) Major depressive disorder, recurrent episode, in full remission Agitation Other and unspecified special symptom or syndrome, not elsewhere classified Gastrointestinal hemorrhage, unspecified gastrointestinal hemorrhage type Chronic insomnia Insomnia, unspecified Prediabetes Other abnormal glucose Mixed hyperlipidemia Encounter for immunization Need for other specified prophylactic vaccination against single bacterial disease documented in this encounter [facility] note* Diagnosis Pain of right heel Pain in limb [facility]* Diagnosis Chronic insomnia Insomnia, unspecified documented in this encounter [facility] note* Diagnosis Generalized anxiety disorder Major depressive disorder, recurrent, in full remission (HCC) Major depressive disorder, recurrent episode, in full remission documented [facility]* Diagnosis Cystocele with prolapse- Primary Pessary maintenance Fitting and adjustment of other device documented [facility]* Diagnosis Dementia without behavioral disturbance, psychotic disturbance, mood disturbance, or anxiety, unspecified dementia severity, unspecified dementia type ([facility])- Primary Memory change Memory loss [facility]* Diagnosis Hypertension, unspecified type- Primary Major depressive disorder, recurrent, in full remission (HCC) Major depressive disorder, recurrent episode, in full remission Dementia without behavioral disturbance (HCC) Dementia, unspecified, without behavioral disturbance documented [facility]* Diagnosis Fall, initial encounter- Primary documented [facility]* Diagnosis Generalized anxiety disorder [facility]* Diagnosis Chronic midline low back pain without sciatica- Primary Chronic insomnia Insomnia, unspecified Stress incontinence of urine Major depressive disorder, recurrent, in full remission (HCC) Major depressive disorder, recurrent episode, in full remission Mixed hyperlipidemia Irritable bowel syndrome, unspecified type Generalized anxiety disorder Dementia without behavioral disturbance (HCC) Dementia, unspecified, without behavioral disturbance Fall, initial encounter documented [facility]* Diagnosis Cystocele with prolapse- Primary documented [facility]* Diagnosis Chronic midline low back pain without sciatica Generalized anxiety disorder [facility]* Diagnosis Acute ischemic cerebrovascular accident (CVA) involving left middle cerebral artery territory (HCC)- Primary Acute ischemic cerebrovascular accident (CVA) involving left middle cerebral artery territory (HCC) Essential tremor Essential and other specified forms of tremor Mixed hyperlipidemia Hypokalemia Hypopotassemia Cerebral edema (HCC) Cerebral edema Benign essential tremor Essential and other specified forms of tremor History of dementia Personal history of other mental disorder Hospital discharge follow-up- Primary Other follow-up examination Hypertension, unspecified type Cerebral infarction, unspecified mechanism (HCC) Hypokalemia Hypopotassemia Essential tremor Essential and other specified forms of tremor Dementia without behavioral disturbance (HCC) Dementia, unspecified, without behavioral disturbance Chronic midline low back pain without sciatica documented in this encounter [facility] note* Diagnosis Acute ischemic cerebrovascular accident (CVA) involving left middle cerebral artery territory (HCC)- Primary Acute ischemic cerebrovascular accident (CVA) involving left middle cerebral artery territory (HCC) Essential tremor Essential and other specified forms of tremor Mixed hyperlipidemia Hypokalemia Hypopotassemia Cerebral edema (HCC) Cerebral edema Benign essential tremor Essential and other specified forms of tremor History of dementia Personal history of other mental disorder Chronic midline low back pain without sciatica [facility] Diagnosis Onset Date Resolution Status Admit Date Acute right MCA stroke acute Ju 2024 12:15pm Facial droop acute February 24, 2 025 12:15pm History of dementia acute February 24, 2025 12:15pm Left arm weakness acute February 242024 12:15pm Left leg weakness acute February 242024 12:15pm Stroke acute February 24 12:15pm [facility] Work Phone: History and physical note Author Tabitha Whitfield [facility] Note Date/Time February 24, 2025 12:5 3pm [facility] Medical Records Department [address] [place] [address] H&P Exam - Hospitalist 02/24/25 1227 MR#: [id number] Acct: [id number] Name: WILLEM EVANS Rep #:[id number] : 1945 79 From: Tabitha Whitfield MD PCP: Dr. Citlaly العراقي MD Status:AD IN Location: [place] [id number] 1 HPI - General General Date of Admission: 02/24/25 HPI Narrative WILLEM EVANS, is a 79 F who presents left-sided weakness and facial droop. Patient has history of CVA in December 2024, did receive TNK and was transferred to [facility]. 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 Patient's daughter had noticed patient with a slight left facial droop 2 days prior to patient's admission. This was followed by subjective weakness involving the left lower extremity the following day. She did check up on her mom and found patient to have flaccid paralysis involving the left upper extremity necessitating patient being brought to the emergency department. Imaging studies obtained demonstrated a high-grade stenosis in the proximal M1 horizontal component of the right middle cerebral, measuring 0.5 cm in length. Call was placed for patient to have been transferred to [facility]. Patient's daughter however requested further transfer not to take place. Patient family wanted patient placed placed in the facility instead. 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 Depression Inflammatory bowel disease Anxiety Home Medications ?Medication ?Instructions ?Recorded ?Last Taken ?Type fluoxetine 40 mg capsule 60 mg PO DAILY 10/17/21 Unkn own History multivitamin 1 tab PO DAILY 10/17/21 Unkn own History buspirone 10 mg tablet 10 mg PO TID 02/28/24 Unknow n History melatonin 10 mg capsule 10 mg PO QHS PRN sleep 02/27 Unknown History memantine 10 mg tablet 10 mg PO BID 02/28/24 Unknow n History polyethylene glycol 3350 17 17 g PO DAILY 03/08/24 Unk nown History gram/dose oral powder (ClearLax) sennosides 8.6 mg tablet 17.2 mg PO BID 03/08/24 Unkn own History (Evac-U-Gen (sennosides)) gabapentin 100 mg capsule 100 mg PO TID PRN PRN for pa in 12/18/24 Unknown History losartan 25 mg tablet 25 mg PO DAILY 12/18/24 Unkn own History trazodone 50 mg tablet 50 mg PO QHS 12/18/24 Unknow n History Allergy/AdvReac Type Severity Reaction Status Date / Time No Known Allergies Allergy Verified 02/24/25 09:29 Social History household members: spouse housing: house Smoking Status: Never smoker ROS ROS Narrative Difficult to elicit with patient being dysarthric Vital Signs Vital Signs Vital Signs: 02/24/25 09:29 02/24/25 09:44 02/24/25 09:44 Temperature 98.0 F Temperature Source Oral Pulse Rate 85 78 Respiratory Rate 22 H 21 H Blood Pressure 152/85 H 154/77 H Blood Pressure Mean 107 102 Pulse Ox 95 95 Oxygen Delivery Method Room Air Room Air Room Air 02/24/25 10:08 02/24/25 11:27 Temperature Temperature Source Pulse Rate 77 73 Respiratory Rate 16 18 Blood Pressure 165/80 H 152/92 H Blood Pressure Mean 108 112 Pulse Ox 97 98 Oxygen Delivery Method Room Air Weight Weight: 57.5 kg Body Mass Index (BMI) 20.5 Physical Exam Narrative GENERAL: Dysarthric HEENT: Atraumatic; normocephalic EYES; Anicteric, Normal Conjunctiva NECK; supple, normal thyroid, RESPIRATORY: Diminished to auscultation CARDIOVASCULAR: Regular S1 S2, GI: soft, normoactive bowel sounds, : No Renal angle tenderness; EXTREMITIES: No edema, no clubbing, MUSCULOSKELETAL: no muscle wasting NEURO: Awake; left facial droop with flaccid paralysis involving the left upperextremity SKIN: No Rash PSYCH; Flat affect Results Lab / Micro Data 02/24/25 09:35 02/24/25 09:35 Labs: Laboratory Results - last 24 hr 02/24/25 09:35: WBC 10.1, RBC 3.92 L, Hgb 11.4 L, Hct 34.4 L, MCV 87.8, MCH 29.1, MCHC 33.1, RDW Std Deviation 46.4 H, RDW Coeff of Shon 14.4, Plt Count 406,MPV 10.2, Immature Gran % (Auto) 0.300, Neut % (Auto) 77.1 H, Lymph % (Auto) 14.0 L, Wilcox % (Auto) 7.6, Eos % (Auto) 0.4, Baso % (Auto) 0.6, Absolute Neuts (auto) 7.8 H, Absolute Lymphs (auto) 1.42, Nucleated RBC % 0, PT 12.8, INR 1.0, APTT 28.7, Sodium 140, Potassium 3.4, Chloride 103, Carbon Dioxide 22.6, Anion Gap 14, BUN 9, Creatinine 0.63 L, Estim Creat Clear Calc 51.76, Est GFR (MDRD) Non-Af 90, BUN/Creatinine Ratio 14.9, Glucose 116 H, Calcium 9.5, Troponin T High Sens 20 H D 02/24/25 09:39: POC Glucose 113 H Imaging Radiology Impression Brain CT 02/24/25 10:15 IMPRESSION: 1. Small vessel ischemic/degenerative changes. 2. No acute intracranial hemorrhage, midline shift or mass effect. If symptoms persist, further evaluation with MRI is recommended. Red Alert: No acute intracranial hemorrhage. The critical information above was relayed directly by me by telephone to Jared James on 02/24/2025 at 10:37 am with readback verification. Reading [facility] Head/Neck CTA 02/24/25 10:15 IMPRESSION: There is a high-grade stenosis in the proximal M1 horizontal component of the right middle cerebral, measuring 0.5 cm in length, axial image [id number]. Critical results were discussed with Dr. James by Dr. Reddy at the time ofdictation. Reading Location: [facility] Assessment & Plan Assessment/Plan (1) Acute right MCA stroke: PLAN: Plan Patient is a 79-year-old female presenting with left-sided weakness 1. Acute CVA ? Patient presented with left facial droop with left-sided weakness. Imaging studies obtained in the ED did show a high-grade stenosis in the proximal M1 horizontal component of the right middle cerebral, measuring 0.5 cm in length. Patient was accepted for transfer to [facility] regarding her large vessel occlusion for intervention patient family however declined for patient johanny transferred. Patient admitted to a monitored bed requested for PT/OT/ST evaluation. Patient started on antiplatelet therapy with aspirin as well as atorvastatin. 2D echo and an MRI ordered as part of patient's evaluation. Consult placed to [facility]. Patient was not a candidate for TNK given the fact that her last known well is unknown #2. Previous CVA ? Patient did receive TNK and transferred to a [facility] where no intervention was done regarding her high-grade stenosis in the proximal M1?right MCA 3. Essential hypertension ? Will proceed permissive hypertension protocol 4. Depression with anxiety ? Patient is on fluoxetine as well as buspirone 5. Dementia ? Patient is on memantine 10 mg twice daily will resume once home meds have beenreconciled 6. Anemia ? Secondary to chronic disorder monitoring H&H and transfuse if patient becomes symptomatic or hemoglobin falls below 7 7. DVT prophylaxis ? Subcu Lovenox Time spent in the patient's overall evaluation,decision-making process, review of diagnostic data, adjustment of management, discussion with other providers, nursing nursing and ancillary staff involved in patient's care documentation, 75 Minutes Advance planning; did discuss with the patient and family (patient's daughter) regarding advanced directives as well as CODE STATUS. Did explain the various scenarios involved ( FULL CODE, DNR CCA, DNR CCA with no intubation, and DNR CC and what each meant) patient elected to be DNR CCA no intubation. Order was placed. Time spent on discussion 16 minutes. Charges/Coding Multi Select Codes Visit Charges Visit Charges: 35479 Init Hosp L3 Hospitalists' Procedures Procedures: 11250 Advncd Care Plan 30 Min 02/24/25 1253 <Electronically signed by Tabitha Whitfield MD> Cosigner Signature (if applicable): CC: Dr. Tabitha Whitfield MD; Dr. Citlaly العراقي MD~ Signed [facility] Work Phone: [facility] for referral (narrative)* Outpatient Procedure (Routine) - Pending Review Specialty Diagnoses / Procedures Referred By Contac t Referred To Contact [facility] Diagnoses PMB (postmenopausal bleeding) Procedures ENDOMETRIAL BIOPSY ENDOMETRIAL BX W/WO ENDOCERVIX BX W/O DILAT SPX Herman Palumbo MD [address] [place] [address] [address] Referral ID Status Reason Start Date Expiration Date Visits Requested Visits Authorized [id number] Pending Review Auto-Generat ed Referral 04/18/2023 04/17/2024 1 1 [facility] for referral (narrative)* Outpatient Procedure (Routine) - Pending Review Specialty Diagnoses / Procedures Referred By Contac t Referred To Contact [facility] Diagnoses Memory loss Dementia without behavioral disturbance, psychotic disturbance, mood disturbance, or anxiety, unspecified dementia severity, unspecified dementia type (HCC) Procedures ECG COMPLETE ECG ROUTINE ECG W/LEAST 12 LDS W/I&R Rosemarie Spears PA-C [address] [place] [address] [place] [address] Referral ID Status Reason Start Date Expiration Date Visits Requested Visits Authorized [id number] Pending Review Auto-Generat ed Referral 06/17/2023 06/16/2024 1 1 [facility] for referral (narrative)* Diagnostic Procedure Only (Urgent) - Closed Specialty Diagnoses / Procedures Referred By Ayana murillo Referred To Contact XR IMAGING Diagnoses Pain of right heel Procedures XR CALCANEUS 2V AXIAL/LAT RT X-RAY HEEL Leighton López MD [address] [place] [address] [place] [id number] Referral ID Status Reason Start Date Expiration Date V isits Requested Visits Authorized [id number] Closed Auto-Generate d Referral 05/21/2021 08/10/2021 1 1 [facility] for referral (narrative)No reason for referral information [facility]WWood [facility] Work Phone: Reason for visit Narrative* Diagnostic Procedure Only (Urgent) - Closed Specialty Diagnoses / Procedures Referred By Ayana murillo Referred To Contact XR IMAGING Diagnoses Pain of right heel Procedures XR CALCANEUS 2V AXIAL/LAT RT X-RAY HEEL Leighton López MD [address] [place] [address] [place] [id number] Referral ID Status Reason Start Date Expiration Date V isits Requested Visits Authorized [id number] Closed Auto-Generate d Referral 05/21/2021 08/10/2021 1 1 [facility] for visit Narrative* Auth/Cert (Routine) Specialty Diagnoses / Procedures Referred By Ayana murillo Referred To Contact Diagnoses Acute ischemic left MCA stroke (HCC) stroke Procedures NA [place] [address] [place] [address] Phone: tel: Referral ID Status Reason Start Date Expiration Date Visits Re quested Visits Authorized [id number] 1 1 [facility] Chief Complaint and Reason for Visit Chief Complaint BACK back Chief Complaint Admit Date stroke alert December 18, 2024 7:28p m Chief Complaint Admit Date stroke alert December 18, 2024 7:28p m stroke alert January 24, 2025 4:01 pm Chief Complaint Admit Date stroke alert December 18, 2024 7:28p m stroke alert January 24, 2025 4:01 pm LEFT FACIAL DROOP February 24, 2025 12:1 5pm LEFT FACIAL DROOP February 24, 2025 12:2 7pm Reason for Visit Admit Date Acute right MCA stroke February 24, 2025 1 2:15pm Facial droop February 24, 2025 12:1 5pm History of dementia February 24, 2025 12:1 5pm Left arm weakness February 24, 2025 12:1 5pm Left leg weakness February 24, 2025 12:1 5pm Stroke February 24, 2025 12:1 5pm Chief Complaint Admit Date stroke alert December 18, 2024 7:28p m stroke alert January 24, 2025 4:01 pm LEFT FACIAL DROOP February 24, 2025 12:1 5pm LEFT FACIAL DROOP February 24, 2025 12:2 7pm LEFT FACIAL DROOP February 25, 2025 10:2 1am LEFT FACIAL DROOP February 26, 2025 10:4 5am Chief Complaint Admit Date stroke alert December 18, 2024 7:28p m stroke alert January 24, 2025 4:01 pm LEFT FACIAL DROOP February 24, 2025 12:1 5pm LEFT FACIAL DROOP February 24, 2025 12:2 7pm LEFT FACIAL DROOP February 25, 2025 10:2 1am LEFT FACIAL DROOP February 26, 2025 10:4 5am LABWORK February 28, 2025 5:00 am LAB WORK March 02, 2025 5:00 am LAB WORK March 07, 2025 4:00 am VOMITING NAUSEA March 21, 2025 11 :01am Reason for Visit Admit Date Acute right MCA stroke February 24, 2025 1 2:15pm Facial droop February 24, 2025 12:1 5pm History of dementia February 24, 2025 12:1 5pm Left arm weakness February 24, 2025 12:1 5pm Left leg weakness February 24, 2025 12:1 5pm Stroke February 24, 2025 12:1 5pm Elevated alkaline phosphatase level [facility] st 2024 11:01am Regurgitation of food March 21, 2025 11:01am Monoplegia of upper limb fol lowing cerebral infarction affecting left March 21, 2025 11:01am Chief Complaint Admit Date stroke alert December 18, 2024 7:28p m stroke alert January 24, 2025 4:01 pm LEFT FACIAL DROOP February 24, 2025 12:1 5pm LEFT FACIAL DROOP February 24, 2025 12:2 7pm LEFT FACIAL DROOP February 25, 2025 10:2 1am LEFT FACIAL DROOP February 26, 2025 10:4 5am LABWORK February 28, 2025 5:00 am Admission Exam February 28, 2025 5:22 pm LAB WORK March 02, 2025 5:00 am LAB WORK March 07, 2025 4:00 am VOMITING NAUSEA March 21, 2025 11 :01am Chief Complaint Admit Date stroke alert December 18, 2024 7:28p m stroke alert January 24, 2025 4:01 pm LEFT FACIAL DROOP February 24, 2025 12:1 5pm LEFT FACIAL DROOP February 24, 2025 12:2 7pm LEFT FACIAL DROOP February 25, 2025 10:2 1am LEFT FACIAL DROOP February 26, 2025 10:4 5am LABWORK February 28, 2025 5:00 am Admission Exam February 28, 2025 5:22 pm Admission Exam March 01, 2025 12:2 0pm LAB WORK March 02, 2025 5:00 am LAB WORK March 07, 2025 4:00 am VOMITING NAUSEA March 21, 2025 11 :01am Chief Complaint Admit Date stroke alert December 18, 2024 7:28p m stroke alert January 24, 2025 4:01 pm LEFT FACIAL DROOP February 24, 2025 12:1 5pm LEFT FACIAL DROOP February 24, 2025 12:2 7pm LEFT FACIAL DROOP February 25, 2025 10:2 1am LEFT FACIAL DROOP February 26, 2025 10:4 5am LABWORK February 28, 2025 5:00 am Admission Exam February 28, 2025 5:22 pm Admission Exam March 01, 2025 12:2 0pm LAB WORK March 02, 2025 5:00 am LAB WORK March 07, 2025 4:00 am New Concern March 07, 2025 3:45 pm VOMITING NAUSEA March 21, 2025 11 :01am Chief Complaint Admit Date stroke alert December 18, 2024 7:28p m stroke alert January 24, 2025 4:01 pm LEFT FACIAL DROOP February 24, 2025 12:1 5pm LEFT FACIAL DROOP February 24, 2025 12:2 7pm LEFT FACIAL DROOP February 25, 2025 10:2 1am LEFT FACIAL DROOP February 26, 2025 10:4 5am LABWORK February 28, 2025 5:00 am Admission Exam February 28, 2025 5:22 pm Admission Exam March 01, 2025 12:2 0pm LAB WORK March 02, 2025 5:00 am LAB WORK March 07, 2025 4:00 am New Concern March 07, 2025 3:45 pm New Concern March 10, 2025 1:37 pm VOMITING NAUSEA March 21, 2025 11 :01am Chief Complaint Admit Date stroke alert December 18, 2024 7:28p m stroke alert January 24, 2025 4:01 pm LEFT FACIAL DROOP February 24, 2025 12:1 5pm LEFT FACIAL DROOP February 24, 2025 12:2 7pm LEFT FACIAL DROOP February 25, 2025 10:2 1am LEFT FACIAL DROOP February 26, 2025 10:4 5am LABWORK February 28, 2025 5:00 am Admission Exam February 28, 2025 5:22 pm Admission Exam March 01, 2025 12:2 0pm LAB WORK March 02, 2025 5:00 am LAB WORK March 07, 2025 4:00 am New Concern March 07, 2025 3:45 pm New Concern March 10, 2025 1:37 pm LAB WORK March 14, 2025 5:0 0am LAB WORK March 14, 2025 5:1 5pm NEW CONCERN March 16, 2025 4:2 7pm VOMITING NAUSEA March 21, 2025 11 :01am Advance Directives No Advanced Directives Records Found Advance Directive Response Recorded Date/ Time Living Will No October 31, 2021 6:52am Power of [facility] No October 31 6:52am Advance Directive Response Recorded Date/ Time Do you have a Healthcare Power of [facility] Traffic Control [facility]? No December 18, 2024 7:37pm Date Activated Date Inactivated Comments 12/18/2024 11:02 PM Question Answer Comments DNR Order Discussed With: Surrogate Decision Kana er Surrogate Decision Maker Name: Lindsey Bell Date Activated Date Inactivated Comments 12/19/2024 11:42 AM 12/21/2024 5:14 PM Question Answer Comments DNR Order Discussed With: Surrogate Decision Kana er Surrogate Decision Maker Name: Sarah Hi Surrogate Decision Maker Relationship: SpouseMajority of Adult Children (patient support representative) Date Activated Date Inactivated Comments 12/18/2024 11:02 PM 12/19/2024 11:42 AM Question Answer Comments DNR Order Discussed With: Surrogate Decision Kana er Surrogate Decision Maker Name: Lindsey Bell Date Activated Date Inactivated Comments 12/19/2024 11:42 AM 12/21/2024 5:14 PM Question Answer Comments DNR Order Discussed With: Surrogate Decision Kana er Surrogate Decision Maker Name: Sarah Hi Surrogate Decision Maker Relationship: SpouseMajority of Adult Children (patient support representative) Date Activated Date Inactivated Comments 12/18/2024 11:02 PM 12/19/2024 11:42 AM Question Answer Comments DNR Order Discussed With: Surrogate Decision Kana er Surrogate Decision Maker Name: Lindsey Fernandezey Advance Directive Response Recorded Date/ Time Do you have a Healthcare Power of [facility] Traffic [facility]ist [facility]? No January 24, 2025 4:07pm Do you have a Healthcare Power of [facility] Traffic [facility]? No December 18, 2024 7:37pm Advance Directive Response Recorded Date/ Time Do you have a Healthcare Power of [facility] Traffic Control Specialist [facility]? No January 24, 2025 4:07pm Do you have a Healthcare Power of [facility] Traffic Control Specialist [facility]? No February 24, 2025 10:21am Do you have a Healthcare Power of Air Traffic Control Specialist [facility]? No December 18, 2024 7:37pm Advance Directive Response Recorded Date/ Time Do you have a Healthcare Power of [facility] Traffic Control Specialist [facility]? No January 24, 2025 4:07pm Do you have a Healthcare Power of [facility] Traffic Control Specialist [facility]? No February 24, 2025 2:16pm Do you have a Healthcare Power of [facility] Traffic Control Specialist [facility]? No December 18, 2024 7:37pm Reason for Referral Specialty Diagnoses / Procedures Referred By Ayana murillo Referred To Contact Diagnoses Female genital prolapse, unspecified type Procedures CONSULT TO FEMALE UROLOGY/URO GYNECOLOGY OFFICE/OUTPATIENT [facility] MDM 60-74 MINUTES Herman Palumbo MD [address] [place] [address] Referral ID Status Reason Start Date Expiration Date Visits Requested Visits Authorized [id number] Pending Review PCP Requested Referral 05/07/2022 05/07/2023 1 1 Specialty Diagnoses / Procedures Referred By Contac t Referred To Contact MR IMAGING Diagnoses Cognitive impairment, mild, so stated Procedures MRI BRAIN WO IVCON MRI BRAIN BRAIN STEM W/O CONTRAST MATERIAL Citlaly العراقي MD [address] [place] [address] Mr Imaging Referral ID Status Reason Start Date Expiration Date Visits Requested Visits Authorized [id number] Pending Review Auto-Generat ed Referral 07/28/2023 1 1 Referral ID Status Reason Start Date Expiration Date Visits Requested Visits Authorized [id number] Pending Review PCP Requested Referral 11/05/2022 11/05/2023 1 1 Specialty Diagnoses / Procedures Referred By Contac t Referred To Contact MR IMAGING Diagnoses Memory change Memory loss Procedures MRI BRAIN WO IVCON MRI BRAIN BRAIN STEM W/O CONTRAST MATERIAL Rosemarie Spears PA-C [address] [place] [id number] [place] [address] Referral ID Status Reason Start Date Expiration Date Visits Requested Visits Authorized [id number] Pending Review Auto-Generat ed Referral 04/22/2023 05/21/2024 1 1 Specialty Diagnoses / Procedures Referred By Contac t Referred To Contact MR IMAGING Diagnoses Memory change Memory loss Procedures MRI BRAIN WO IVCON MRI BRAIN BRAIN STEM W/O CONTRAST MATERIAL Rosemarie Spears PA-C [address] [place] [address] [place] [address] Referral ID Status Reason Start Date Expiration Date V isits Requested Visits Authorized [id number] Closed Auto-Generate d Referral 05/08/2023 08/10/2023 1 1 Specialty Diagnoses / Procedures Referred By Contac t Referred To Contact MR IMAGING Diagnoses Cognitive impairment, mild, so stated Procedures MRI BRAIN WO IVCON MRI BRAIN BRAIN STEM W/O CONTRAST MATERIAL Citlaly العراقي MD [address] [place] [address] [place] [id number] Referral ID Status Reason Start Date Expiration Date V isits Requested Visits Authorized [id number] Closed Auto-Generate d Referral 07/18/2022 01/14/2023 1 1 Specialty Diagnoses / Procedures Referred By Contac t Referred To Contact Pain Management Diagnoses Chronic midline low back pain without sciatica Procedures CONSULT TO PAIN MGT OFFICE/OUTPATIENT [facility] MDM 60 MINUTES Citlaly العراقي MD [address] [place] [address] Referral ID Status Reason Start Date Expiration Date Visits Requested Visits Authorized [id number] Authorized PCP Requested Referral 08/12/2024 08/12/2025 1 1 Health Concerns Infection Onset Date Last Indicated Resolved Time COVID-19 Confirmed 06/25/2023 06/25/2023 Summary Purpose Family History No Family History Records FoundNo Family History Records FoundNo Family History Records FoundNo Family History Records Found Additional Source Comments Source Comments (unrecognize d section and content) In the event this informatio n is protected by the Federal Confidentiality of Alcohol and Drug Abuse Patient Records regulations: The Federal rules restrict any use of the information to criminally investigate or prosecute any alcohol or drug abuse patient.[facility] the event this information is protected by the Federal Confidentiality of Alcohol and Drug Abuse Patient Records regulations: The Federal rules restrict any use of the information to criminally investigate or prosecute any alcohol or drug abuse patient.[facility] the event this information is protected by the Federal Confidentiality of Alcohol and Drug Abuse Patient Records regulations: The Federal rules restrict any use of the information to criminally investigate or prosecute any alcohol or drug abuse patient.[facility] the event this information is protected by the Federal Confidentiality of Alcohol and Drug Abuse Patient Records regulations: The Federal rules restrict any use of the information to criminally investigate or prosecute any alcohol or drug abuse patient.[facility] the event this information is protected by the Federal Confidentiality of Alcohol and Drug Abuse Patient Records regulations: The Federal rules restrict any use of the information to criminally investigate or prosecute any alcohol or drug abuse patient.[facility]In the event this information is protected by the Federal Confidentiality of Alcohol and Drug Abuse Patient Records regulations: The Federal rules restrict any use of the information to criminally investigate or prosecute any alcohol or drug abuse patient.[facility]In the event this information is protected by the Federal Confidentiality of Alcohol and Drug Abuse Patient Records regulations: The Federal rules restrict any use of the information to criminally investigate or prosecute any alcohol or drug abuse patient.[facility]In the event this information is protected by the Federal Confidentiality of Alcohol and Drug Abuse Patient Records regulations: The Federal rules restrict any use of the information to criminally investigate or prosecute any alcohol or drug abuse patient.[facility]In the event this information is protected by the Federal Confidentiality of Alcohol and Drug Abuse Patient Records regulations: The Federal rules restrict any use of the information to criminally investigate or prosecute any alcohol or drug abuse patient.[facility] HospitalIn the event this information is protected by the Federal Confidentiality of Alcohol and Drug Abuse Patient Records regulations: The Federal rules restrict any use of the information to criminally investigate or prosecute any alcohol or drug abuse patient.[facility] the event this information is protected by the Federal Confidentiality of Alcohol and Drug Abuse Patient Records regulations: The Federal rules restrict any use of the information to criminally investigate or prosecute any alcohol or drug abuse patient.[facility] the event this information is protected by the Federal Confidentiality of Alcohol and Drug Abuse Patient Records regulations: The Federal rules restrict any use of the information to criminally investigate or prosecute any alcohol or drug abuse patient.[facility]In the event this information is protected by the Federal Confidentiality of Alcohol and Drug Abuse Patient Records regulations: The Federal rules restrict any use of the information to criminally investigate or prosecute any alcohol or drug abuse patient.[facility]In the event this information is protected by the Federal Confidentiality of Alcohol and Drug Abuse Patient Records regulations: The Federal rules restrict any use of the information to criminally investigate or prosecute any alcohol or drug abuse patient.[facility]In the event this information is protected by the Federal Confidentiality of Alcohol and Drug Abuse Patient Records regulations: The Federal rules restrict any use of the information to criminally investigate or prosecute any alcohol or drug abuse patient.[facility] HospitalIn the event this information is protected by the Federal Confidentiality of Alcohol and Drug Abuse Patient Records regulations: The Federal rules restrict any use of the information to criminally investigate or prosecute any alcohol or drug abuse patient.[facility] HospitalIn the event this information is protected by the Federal Confidentiality of Alcohol and Drug Abuse Patient Records regulations: The Federal rules restrict any use of the information to criminally investigate or prosecute any alcohol or drug abuse patient.[facility] HospitalIn the event this information is protected by the Federal Confidentiality of Alcohol and Drug Abuse Patient Records regulations: The Federal rules restrict any use of the information to criminally investigate or prosecute any alcohol or drug abuse patient.[facility] HospitalIn the event this information is protected by the Federal Confidentiality of Alcohol and Drug Abuse Patient Records regulations: The Federal rules restrict any use of the information to criminally investigate or prosecute any alcohol or drug abuse patient.[facility] HospitalIn the event this information is protected by the Federal Confidentiality of Alcohol and Drug Abuse Patient Records regulations: The Federal rules restrict any use of the information to criminally investigate or prosecute any alcohol or drug abuse patient.[facility] HospitalIn the event this information is protected by the Federal Confidentiality of Alcohol and Drug Abuse Patient Records regulations: The Federal rules restrict any use of the information to criminally investigate or prosecute any alcohol or drug abuse patient.[facility] HospitalIn the event this information is protected by the Federal Confidentiality of Alcohol and Drug Abuse Patient Records regulations: The Federal rules restrict any use of the information to criminally investigate or prosecute any alcohol or drug abuse patient.[facility] HospitalIn the event this information is protected by the Federal Confidentiality of Alcohol and Drug Abuse Patient Records regulations: The Federal rules restrict any use of the information to criminally investigate or prosecute any alcohol or drug abuse patient.[facility] HospitalIn the event this information is protected by the Federal Confidentiality of Alcohol and Drug Abuse Patient Records regulations: The Federal rules restrict any use of the information to criminally investigate or prosecute any alcohol or drug abuse patient.[facility] HospitalIn the event this information is protected by the Federal Confidentiality of Alcohol and Drug Abuse Patient Records regulations: The Federal rules restrict any use of the information to criminally investigate or prosecute any alcohol or drug abuse patient.[facility] HospitalIn the event this information is protected by the Federal Confidentiality of Alcohol and Drug Abuse Patient Records regulations: The Federal rules restrict any use of the information to criminally investigate or prosecute any alcohol or drug abuse patient.[facility] HospitalIn the event this information is protected by the Federal Confidentiality of Alcohol and Drug Abuse Patient Records regulations: The Federal rules restrict any use of the information to criminally investigate or prosecute any alcohol or drug abuse patient.[facility] HospitalIn the event this information is protected by the Federal Confidentiality of Alcohol and Drug Abuse Patient Records regulations: The Federal rules restrict any use of the information to criminally investigate or prosecute any alcohol or drug abuse patient.[facility] HospitalIn the event this information is protected by the Federal Confidentiality of Alcohol and Drug Abuse Patient Records regulations: The Federal rules restrict any use of the information to criminally investigate or prosecute any alcohol or drug abuse patient.[facility] HospitalIn the event this information is protected by the Federal Confidentiality of Alcohol and Drug Abuse Patient Records regulations: The Federal rules restrict any use of the information to criminally investigate or prosecute any alcohol or drug abuse patient.[facility] HospitalIn the event this information is protected by the Federal Confidentiality of Alcohol and Drug Abuse Patient Records regulations: The Federal rules restrict any use of the information to criminally investigate or prosecute any alcohol or drug abuse patient.[facility] HospitalIn the event this information is protected by the Federal Confidentiality of Alcohol and Drug Abuse Patient Records regulations: The Federal rules restrict any use of the information to criminally investigate or prosecute any alcohol or drug abuse patient.[facility] HospitalIn the event this information is protected by the Federal Confidentiality of Alcohol and Drug Abuse Patient Records regulations: The Federal rules restrict any use of the information to criminally investigate or prosecute any alcohol or drug abuse patient.[facility] HospitalIn the event this information is protected by the Federal Confidentiality of Alcohol and Drug Abuse Patient Records regulations: The Federal rules restrict any use of the information to criminally investigate or prosecute any alcohol or drug abuse patient.[facility] HospitalIn the event this information is protected by the Federal Confidentiality of Alcohol and Drug Abuse Patient Records regulations: The Federal rules restrict any use of the information to criminally investigate or prosecute any alcohol or drug abuse patient.[facility] HospitalIn the event this information is protected by the Federal Confidentiality of Alcohol and Drug Abuse Patient Records regulations: The Federal rules restrict any use of the information to criminally investigate or prosecute any alcohol or drug abuse patient.[facility] HospitalIn the event this information is protected by the Federal Confidentiality of Alcohol and Drug Abuse Patient Records regulations: The Federal rules restrict any use of the information to criminally investigate or prosecute any alcohol or drug abuse patient.[facility] the event this information is protected by the Federal Confidentiality of Alcohol and Drug Abuse Patient Records regulations: The Federal rules restrict any use of the information to criminally investigate or prosecute any alcohol or drug abuse patient.[facility] HospitalIn the event this information is protected by the Federal Confidentiality of Alcohol and Drug Abuse Patient Records regulations: The Federal rules restrict any use of the information to criminally investigate or prosecute any alcohol or drug abuse patient.[facility] HospitalIn the event this information is protected by the Federal Confidentiality of Alcohol and Drug Abuse Patient Records regulations: The Federal rules restrict any use of the information to criminally investigate or prosecute any alcohol or drug abuse patient.[facility] HospitalIn the event this information is protected by the Federal Confidentiality of Alcohol and Drug Abuse Patient Records regulations: The Federal rules restrict any use of the information to criminally investigate or prosecute any alcohol or drug abuse patient.[facility] HospitalIn the event this information is protected by the Federal Confidentiality of Alcohol and Drug Abuse Patient Records regulations: The Federal rules restrict any use of the information to criminally investigate or prosecute any alcohol or drug abuse patient.[facility] HospitalIn the event this information is protected by the Federal Confidentiality of Alcohol and Drug Abuse Patient Records regulations: The Federal rules restrict any use of the information to criminally investigate or prosecute any alcohol or drug abuse patient.[facility] HospitalIn the event this information is protected by the Federal Confidentiality of Alcohol and Drug Abuse Patient Records regulations: The Federal rules restrict any use of the information to criminally investigate or prosecute any alcohol or drug abuse patient.[facility] HospitalIn the event this information is protected by the Federal Confidentiality of Alcohol and Drug Abuse Patient Records regulations: The Federal rules restrict any use of the information to criminally investigate or prosecute any alcohol or drug abuse patient.[facility] HospitalIn the event this information is protected by the Federal Confidentiality of Alcohol and Drug Abuse Patient Records regulations: The Federal rules restrict any use of the information to criminally investigate or prosecute any alcohol or drug abuse patient.[facility] HospitalIn the event this information is protected by the Federal Confidentiality of Alcohol and Drug Abuse Patient Records regulations: The Federal rules restrict any use of the information to criminally investigate or prosecute any alcohol or drug abuse patient.[facility] HospitalIn the event this information is protected by the Federal Confidentiality of Alcohol and Drug Abuse Patient Records regulations: The Federal rules restrict any use of the information to criminally investigate or prosecute any alcohol or drug abuse patient.[facility] HospitalIn the event this information is protected by the Federal Confidentiality of Alcohol and Drug Abuse Patient Records regulations: The Federal rules restrict any use of the information to criminally investigate or prosecute any alcohol or drug abuse patient.[facility] HospitalIn the event this information is protected by the Federal Confidentiality of Alcohol and Drug Abuse Patient Records regulations: The Federal rules restrict any use of the information to criminally investigate or prosecute any alcohol or drug abuse patient.[facility] HospitalIn the event this information is protected by the Federal Confidentiality of Alcohol and Drug Abuse Patient Records regulations: The Federal rules restrict any use of the information to criminally investigate or prosecute any alcohol or drug abuse patient.[facility] HospitalIn the event this information is protected by the Federal Confidentiality of Alcohol and Drug Abuse Patient Records regulations: The Federal rules restrict any use of the information to criminally investigate or prosecute any alcohol or drug abuse patient.[facility] HospitalIn the event this information is protected by the Federal Confidentiality of Alcohol and Drug Abuse Patient Records regulations: The Federal rules restrict any use of the information to criminally investigate or prosecute any alcohol or drug abuse patient.[facility] HospitalIn the event this information is protected by the Federal Confidentiality of Alcohol and Drug Abuse Patient Records regulations: The Federal rules restrict any use of the information to criminally investigate or prosecute any alcohol or drug abuse patient.[facility] HospitalIn the event this information is protected by the Federal Confidentiality of Alcohol and Drug Abuse Patient Records regulations: The Federal rules restrict any use of the information to criminally investigate or prosecute any alcohol or drug abuse patient.[facility] HospitalIn the event this information is protected by the Federal Confidentiality of Alcohol and Drug Abuse Patient Records regulations: The Federal rules restrict any use of the information to criminally investigate or prosecute any alcohol or drug abuse patient.[facility] HospitalIn the event this information is protected by the Federal Confidentiality of Alcohol and Drug Abuse Patient Records regulations: The Federal rules restrict any use of the information to criminally investigate or prosecute any alcohol or drug abuse patient.[facility] HospitalIn the event this information is protected by the Federal Confidentiality of Alcohol and Drug Abuse Patient Records regulations: The Federal rules restrict any use of the information to criminally investigate or prosecute any alcohol or drug abuse patient.[facility] HospitalIn the event this information is protected by the Federal Confidentiality of Alcohol and Drug Abuse Patient Records regulations: The Federal rules restrict any use of the information to criminally investigate or prosecute any alcohol or drug abuse patient.[facility] HospitalIn the event this information is protected by the Federal Confidentiality of Alcohol and Drug Abuse Patient Records regulations: The Federal rules restrict any use of the information to criminally investigate or prosecute any alcohol or drug abuse patient.[facility] HospitalIn the event this information is protected by the Federal Confidentiality of Alcohol and Drug Abuse Patient Records regulations: The Federal rules restrict any use of the information to criminally investigate or prosecute any alcohol or drug abuse patient.[facility] HospitalIn the event this information is protected by the Federal Confidentiality of Alcohol and Drug Abuse Patient Records regulations: The Federal rules restrict any use of the information to criminally investigate or prosecute any alcohol or drug abuse patient.[facility] HospitalIn the event this information is protected by the Federal Confidentiality of Alcohol and Drug Abuse Patient Records regulations: The Federal rules restrict any use of the information to criminally investigate or prosecute any alcohol or drug abuse patient.[facility] HospitalIn the event this information is protected by the Federal Confidentiality of Alcohol and Drug Abuse Patient Records regulations: The Federal rules restrict any use of the information to criminally investigate or prosecute any alcohol or drug abuse patient.[facility] HospitalIn the event this information is protected by the Federal Confidentiality of Alcohol and Drug Abuse Patient Records regulations: The Federal rules restrict any use of the information to criminally investigate or prosecute any alcohol or drug abuse patient.[facility] HospitalIn the event this information is protected by the Federal Confidentiality of Alcohol and Drug Abuse Patient Records regulations: The Federal rules restrict any use of the information to criminally investigate or prosecute any alcohol or drug abuse patient.[facility] HospitalIn the event this information is protected by the Federal Confidentiality of Alcohol and Drug Abuse Patient Records regulations: The Federal rules restrict any use of the information to criminally investigate or prosecute any alcohol or drug abuse patient.[facility] HospitalIn the event this information is protected by the Federal Confidentiality of Alcohol and Drug Abuse Patient Records regulations: The Federal rules restrict any use of the information to criminally investigate or prosecute any alcohol or drug abuse patient.[facility] HospitalIn the event this information is protected by the Federal Confidentiality of Alcohol and Drug Abuse Patient Records regulations: The Federal rules restrict any use of the information to criminally investigate or prosecute any alcohol or drug abuse patient.[facility] HospitalIn the event this information is protected by the Federal Confidentiality of Alcohol and Drug Abuse Patient Records regulations: The Federal rules restrict any use of the information to criminally investigate or prosecute any alcohol or drug abuse patient.[facility] HospitalIn the event this information is protected by the Federal Confidentiality of Alcohol and Drug Abuse Patient Records regulations: The Federal rules restrict any use of the information to criminally investigate or prosecute any alcohol or drug abuse patient.[facility] HospitalIn the event this information is protected by the Federal Confidentiality of Alcohol and Drug Abuse Patient Records regulations: The Federal rules restrict any use of the information to criminally investigate or prosecute any alcohol or drug abuse patient.[facility] HospitalIn the event this information is protected by the Federal Confidentiality of Alcohol and Drug Abuse Patient Records regulations: The Federal rules restrict any use of the information to criminally investigate or prosecute any alcohol or drug abuse patient.[facility] HospitalIn the event this information is protected by the Federal Confidentiality of Alcohol and Drug Abuse Patient Records regulations: The Federal rules restrict any use of the information to criminally investigate or prosecute any alcohol or drug abuse patient.[facility] HospitalIn the event this information is protected by the Federal Confidentiality of Alcohol and Drug Abuse Patient Records regulations: The Federal rules restrict any use of the information to criminally investigate or prosecute any alcohol or drug abuse patient.[facility] HospitalIn the event this information is protected by the Federal Confidentiality of Alcohol and Drug Abuse Patient Records regulations: The Federal rules restrict any use of the information to criminally investigate or prosecute any alcohol or drug abuse patient.[facility] Reason for Visit (unrecogniz ed section and content) Reason Comments Physical Therapy Specialty Diagnoses / Procedures Referred By Ayana murillo Referred To Contact [facility] Diagnoses Acute midline low back pain without sciatica Procedures CONSULT TO PHYSICAL THERAPY PHYSICAL THERAPY EVALUATION HIGH COMPLEX 45 MINS Citlaly العراقي MD [address] [place] [address] [facility] [address] [place] [address] Referral ID Status Reason Start Date Expiration Date V isits Requested Visits Authorized [id number] Authorized 08/11/2021 08/10/2022 99 99 Reason Comments PT Progress Note Reason Comments PT Eval Patient Education Reason Comments Abdominal Pain Nausea Reason Comments Results Reason Comments 6 Month Exam Reason Onset Date Comments Refill Request 01/21/2022 Reason Comments Pessary Reason Comments Pessary Reason Onset Date Comments 6 Month Exam Immunizations 06/28/2022 Flu vaccination Reason Comments Results - Mri Reason Comments Pessary Reason Comments Follow Up Pessary check Reason Comments Appointment Patient declined to have consult with 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 Reason Onset Date Comments Refill Request 11/14/2022 Reason Comments Results Labs Reason Comments AUB Reason Comments New Patient Evaluation Specialty Diagnoses / Procedures Referred By Contgoran t Referred To Contact Neurology Diagnoses Memory change Procedures CONSULT TO NEUROLOGY OFFICE/OUTPATIENT NEW HIGH MDM 60-74 MINUTES Yun Jackson APRN.[employer] [address] [place] [address] Referral ID Status Reason Start Date Expiration Date Visits Requested Visits Authorized [id number] Pending Review PCP Requested Referral 04/07/2023 04/06/2024 1 1 Reason Comments Refill Request Specialty Diagnoses / Procedures Referred By Contac t Referred To Contact MR IMAGING Diagnoses Memory change Memory loss Procedures MRI BRAIN WO IVCON MRI BRAIN BRAIN STEM W/O CONTRAST MATERIAL Rosemarie Spears PA-C [address] [place] [address] [place] [id number] Referral ID Status Reason Start Date Expiration Date V isits Requested Visits Authorized [id number] Closed Auto-Generate d Referral 05/08/2023 08/10/2023 1 1 Specialty Diagnoses / Procedures Referred By Contac t Referred To Contact [facility] IMAG[facility] Diagnoses Cognitive impairment, mild, so stated Procedures MRI BRAIN WO IVCON MRI BRAIN BRAIN STEM W/O CONTRAST MATERIAL Citlaly العراقي MD [address] [place] [address] [place] [id number] Referral ID Status Reason Start Date Expiration Date V isits Requested Visits Authorized [id number] Closed Auto-Generate d Referral 07/18/2022 01/14/2023 1 1 Reason Comments Follow Up Reason Comments Cough ST, chills, fever, w eakness x2 days, fell last night Reason Comments pessary maintenance Reason Comments Follow Up 3 month follow up Reason Onset Date Comments Refill Request 11/19/2023 Reason Comments Follow Up Reason Comments Patient Update Reason Comments Patient Question Reason Onset Date Comments Refill Request 03/03/2024 Reason Comments Hospital Follow Up Reason Comments Pessary fell out Reason Onset Date Comments Refill Request 05/28/2024 Reason Onset Date Comments Refill Request 06/04/2024 Reason Comments Recheck 3 months dementia Reason Comments Follow Up BP Reason Comments Fall Reason Onset Date Comments Refill Request 08/06/2024 Reason Comments Follow Up Back Pain Reason Onset Date Comments Refill Request 12/10/2024 Reason Comments Critical Care Transport Reason Onset Date Comments Transition Of Care 12/23/2024 Reason Comments Transition Of Care Reason Comments Hospital F/U [facility]- 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, HTN, Tremor, Hypokalemia Reason Onset Date Comments Refill Request 02/03/2025 Care Teams (unrecognized sec tion and content) 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 Plant Supervisor Relationship Specialty Start Date End Date Citlaly العراقي MD [address] [facility] [place] [address] PCP - General Family Practice 06/20/14 Sintering Plant Supervisor Relationship Specialty Start Date End Date Citlaly العراقي MD [address] [facility] [place] [address] PCP - General Family Practice 06/20/14 Sintering Plant Supervisor Relationship Specialty Start Date End Date Citlaly العراقي MD [address] [place] [address] PCP - General Family Practice 06/20/14 Sintering Plant Supervisor Relationship Specialty Start Date End Date Citlaly العراقي MD [address] [place] [address] PCP - General Family Practice 06/20/14 Sintering Plant Supervisor Relationship Specialty Start Date End Date Citlaly العراقي MD [address] [place] [address] PCP - General Family Practice 06/20/14 Sintering Plant Supervisor Relationship Specialty Start Date End Date Citlaly العراقي MD [address] [facility] [place] [address] PCP - General Family Practice 06/20/14 Sintering Plant Supervisor Relationship Specialty Start Date End Date iCtlaly العراقي MD [address] [place] [address] PCP - General Family Practice 06/20/14 Sintering Plant Supervisor Relationship Specialty Start Date End Date Citlaly العراقي MD [address] [place] [address] PCP - General Family Practice 06/20/14 Sintering Plant Supervisor Relationship Specialty Start Date End Date Citlaly العراقي MD [address] [place] [address] PCP - General Family Medicine 06/20/14 Sintering Plant Supervisor Relationship Specialty Start Date End Date Citlaly العراقي MD [address] [place] [address] PCP - General Family Medicine 06/20/14 Sintering Plant Supervisor Relationship Specialty Start Date End Date Citlaly العراقي MD [address] [place] [address] PCP - General Family Medicine 06/20/14 Sintering Plant Supervisor Relationship Specialty Start Date End Date Citlaly العراقي MD [address] [place] [address] PCP - General Family Medicine 06/20/14 Sintering Plant Supervisor Relationship Specialty Start Date End Date Citlaly العراقي MD [address] [place] [address] PCP - General Family Medicine 06/20/14 Sintering Plant Supervisor Relationship Specialty Start Date End Date Citlaly العراقي MD [address] [place] [address] PCP - General Family Medicine 06/20/14 Sintering Plant Supervisor Relationship Specialty Start Date End Date Citlaly العراقي MD [address] [place] [address] PCP - General Family Medicine 06/20/14 Sintering Plant Supervisor Relationship Specialty Start Date End Date Citlaly العراقي MD [address] [place] [address] PCP - General Family Medicine 06/20/14 Sintering Plant Supervisor Relationship Specialty Start Date End Date Citlaly العراقي MD [address] [place] [address] PCP - General Family Medicine 06/20/14 Sintering Plant Supervisor Relationship Specialty Start Date End Date Citlaly العراقي MD [address] [facility] [place] [address] PCP - General Family Medicine 06/20/14 Sintering Plant Supervisor Relationship Specialty Start Date End Date Citlaly العراقي MD [address] [place] [address] PCP - General Family Medicine 06/20/14 Sintering Plant Supervisor Relationship Specialty Start Date End Date Citlaly العراقي MD [address] [place] [address] PCP - General Family Medicine 06/20/14 Sintering Plant Supervisor Relationship Specialty Start Date End Date Citlaly العراقي MD [address] [place] [address] PCP - General Family Medicine 06/20/14 Sintering Plant Supervisor Relationship Specialty Start Date End Date Citlaly العراقي MD [address] [facility] [place] [address] PCP - General Family Medicine 06/20/14 Sintering Plant Supervisor Relationship Specialty Start Date End Date Citlaly العراقي MD [address] [facility] [place] [address] PCP - General Family Medicine 06/20/14 Sintering Plant Supervisor Relationship Specialty Start Date End Date Citlaly العراقي MD [address] [facility] [place] [address] PCP - General Family Medicine 06/20/14 Sintering Plant Supervisor Relationship Specialty Start Date End Date Citlaly العراقي MD [address] [place] [address] PCP - General Family Medicine 06/20/14 Sintering Plant Supervisor Relationship Specialty Start Date End Date Citlaly العراقي MD [address] [place] [address] PCP - General Family Medicine 06/20/14 Sintering Plant Supervisor Relationship Specialty Start Date End Date Citlaly العراقي MD [address] [place] [address] PCP - General Family Medicine 06/20/14 Sintering Plant Supervisor Relationship Specialty Start Date End Date Citlaly العراقي MD [address] [facility] [place] [address] PCP - General Family Medicine 06/20/14 Sintering Plant Supervisor Relationship Specialty Start Date End Date Citlaly العراقي MD [address] [place] [address] PCP - General Family Medicine 06/20/14 Sintering Plant Supervisor Relationship Specialty Start Date End Date Citlaly العراقي MD [address] [place] [address] PCP - General Family Medicine 06/20/14 Sintering Plant Supervisor Relationship Specialty Start Date End Date Citlaly العراقي MD [address] [place] [address] PCP - General Family Medicine 06/20/14 Sintering Plant Supervisor Relationship Specialty Start Date End Date Citlaly العراقي MD [address] [facility] [place] [address] PCP - General Family Medicine 06/20/14 Sintering Plant Supervisor Relationship Specialty Start Date End Date Citlaly العراقي MD [address] [facility] [place] [address] PCP - General Family Medicine 06/20/14 Sintering Plant Supervisor Relationship Specialty Start Date End Date Citlaly العراقي MD [address] [place] [address] PCP - General Family Medicine 06/20/14 Sintering Plant Supervisor Relationship Specialty Start Date End Date Citlaly العراقي MD [address] [facility] [place] [address] PCP - General Family Medicine 06/20/14 Sintering Plant Supervisor Relationship Specialty Start Date End Date Citlaly العراقي MD [address] [facility] [place] [address] PCP - General Family Medicine 06/20/14 Yun Jackson, [employer]GEANT [employer].ANA[employer] [address] [facility] [place] [address] Plush Finisher Family Medicine 07/18/24 Sintering Plant Supervisor Relationship Specialty Start Date End Date Citlaly العراقي MD [address] [facility] [place] [address] PCP - General Family Medicine 06/20/14 Yun Jackson, SERGEANT AT [employer].ANA[employer] COMP[employer] INTELLIGENCE [address] [facility] [place] [address] Plush Finisher Family Medicine 07/18/24 Uday Elizabeth SERGE[employer] AT [employer].ANALY[employer] COMP[employer] INTELLIGENCE [address] [facility] [place] [address] Plush Finisher Family Medicine 07/27/24 Sintering Plant Supervisor Relationship Specialty Start Date End Date Citlaly العراقي MD [address] [place] [address] PCP - General Family Medicine 06/20/14 Yun Jackson APRN.ANA[employer]TELLIGENCE [address] [place] [address] Plush Finisher Family Medicine 07/18/24 Uday Elizabeth APRN.ANALY[employer] [address] [facility] [place] [address] Plush Finisher Family Medicine 07/27/24 Sintering Plant Supervisor Relationship Specialty Start Date End Date Citlaly العراقي MD [address] [facility] [place] [address] PCP - General Family Medicine 06/20/14 Yun Jackson APRN.[employer]TE[employer] [address] [place] [address] Plush Finisher Family Medicine 07/18/24 Uday Elizabeth APRN.ANALY[employer] [address] [place] [address] Plush Finisher Family Medicine 07/27/24 Sintering Plant Supervisor Relationship Specialty Start Date End Date Citlaly العراقي MD [address] [facility] [place] [address] PCP - General Family Medicine 06/20/14 Yun Jackson APRN.ANALYST COMP[employer]TELLIGENCE [address] [facility] [place] [address] Plush Finisher Family Medicine 07/18/24 Uday Elizabeth APRN.ANALY[employer]TE[employer]IGENCE [address] [place] [address] Pl[employer] Finisher Family Medicine 07/27/24 Sintering Plant Supervisor Relationship Specialty Start Date End Date Citlaly العراقي MD [address] [place] [address] PCP - General Family Medicine 06/20/14 Yun Jackson [employer]GE[employer] [address] [place] [address] Plush Finisher Family Medicine 07/18/24 Uday Elizabeth APRN.ANALY[employer] COMP[employer]TE[employer]IGENCE [address] [place] [address] Plush Finisher Family Medicine 07/27/24 Sintering Plant Supervisor Relationship Specialty Start Date End Date Citlaly العراقي MD [address] [place] [address] PCP - General Family Medicine 06/20/14 Yun Jackson [employer]GEANT [employer].ANA[employer]TE[employer]IGENCE [address] [place] [address] Plush Finisher Family Medicine 07/18/24 Uday Elizabeth SERGEANT [employer].ANALYST COMPET[employer]IVE INTELLIGENCE [address] [place] [address] Plush Finisher Family Medicine 07/27/24 Sintering Plant Supervisor Relationship Specialty Start Date End Date Citlaly العراقي MD [address] [place] [address] PCP - General Family Medicine 06/20/14 Yun Jackson [employer]GEANT [employer].ANA[employer]TELLIGENCE [address] [place] [address] Plush Finisher Family Medicine 07/18/24 Udya Elizabeth APRN.ANALYST COMP[employer] INTELLIGENCE [address] [facility] [place] [address] Pl[employer] Finisher Family Medicine 07/27/24 Team Status: Active Member Role Status Dates Dr. Citlaly العراقي MD Primary Care Provider Active Team Status: Inactive Member Role Status Dates Dr. Citlaly العراقي MD Primary Care Provider Active Start: December 18, 2024 End: December 18, 2024 Dr. Lopez Alejandra DO Emergency Provider Active Start : December 18, 2024 End: December 18, 2024 Sintering Plant Supervisor Relationship Specialty Start Date End Date Citlaly العراقي MD [address] [facility] [place] [address] PCP - General Family Medicine 06/20/14 Yun Jackson APRN.ANALY[employer]TELLIGENCE [address] [facility] [place] [address] Plush Finisher Family Medicine 07/18/24 Uday Elizabeth SERGEANT [employer].ANALYST COMPETITIVE INTELLIGENCE [address] [facility] [place] [address] [facility] 07/27/24 Sintering Plant Supervisor Relationship Specialty Start Date End Date Citlaly العراقي MD [address] [facility] [place] [address] PCP - General Family Medicine 06/20/14 Yun Jackson SERGEANT [employer].ANALY[employer] COMP[employer] INTELLIGENCE [address] [place] [address] Plush Finisher Family Medicine 07/18/24 Uday Elizabeth APRN.ANALYST COMP[employer]TELLIGENCE [address] [place] [address] Plush Finisher Family Medicine 07/27/24 Sintering Plant Supervisor Relationship Specialty Start Date End Date Citlaly العراقي MD [address] [facility] [place] [address] PCP - General Family Medicine 06/20/14 Uday Elizabeth APRN.ANALYST COMPETITIVE INTELLIGENCE [address] [place] [address] Plush Finisher Family Medicine 07/27/24 Tejas Brito MD Plush Finisher 12/21/24 01/03/25 Sintering Plant Supervisor Relationship Specialty Start Date End Date Citlaly العراقي MD [address] [place] [address] PCP - General Family Medicine 06/20/14 Uday Elizabeth APRN.ANALYST COMPETITIVE INTELLIGENCE [address] [place] [address] Plush Finisher Family Medicine 07/27/24 Tejas Brito MD Plush Finisher 12/21/24 01/03/25 Sintering Plant Supervisor Relationship Specialty Start Date End Date Citlaly العراقي MD [address] [place] [address] PCP - General Family Medicine 06/20/14 Uday Elizabeth SERGEANT AT [employer].ANALYST COMPETITIVE INTELLIGENCE [address] [place] [address] Plush Finisher Family Medicine 07/27/24 Tejas Brito MD Plush Finisher 12/21/24 01/03/25 Sintering Plant Supervisor Relationship Specialty Start Date End Date Citlaly العراقي MD [address] [place] [address] PCP - General Family Medicine 06/20/14 Uday Elizabeth APRN.ANALYST COMPETITIVE INTELLIGENCE [address] [place] [address] Plush Finisher Family [facility] 07/27/24 Sintering Plant Supervisor Relationship Specialty Start Date End Date Citlaly العراقي MD [address] [place], [place] [address] [phone] PCP - General Family Medicine 06/20/14 Uday Elizabeth APRN.ANALYST COMPETITIVE INTELLIGENCE [address] [place] [address] [facility] Team Status: Inactive Member Role Status Dates Dr. Citlaly العراقي MD Primary Care Provider Active Start: December 18, 2024 End: December 18, 2024 Dr. Lopez Alejandra DO Attending Provider Active Start : December 18, 2024 End: December 18, 2024 Dr. Lopez Alejandra DO Emergency Provider Active Start : December 18, 2024 End: December 18, 2024 Team Status: Inactive Member Role Status Dates Dr. Citlaly العراقي MD Primary Care Provider Active Start: January 24, 2025 End: January 24, 2025 Dr. Mir Galindo DO Emergency Provider Active Start: January 24, 2025 End: January 24, 2025 Sintering Plant Supervisor Relationship Specialty Start Date End Date Citlaly العراقي MD [address] [place] [address] PCP - General Family Medicine 06/20/14 Uday Elizabeth APRN.ANALYST COMPETITIVE INTELLIGENCE [address] [place], [place] [address] [phone] [facility] Team Status: Active Member Role/Relationship Status Dates Dr. Citlaly العراقي MD Primary Care Provider Active Team Status: Inactive Member Role/Relationship Status Dates Dr. Citlaly العراقي MD Primary Care Provider Active Start: December 18, 2024 End: December 18, 2024 Dr. Lopez Alejandra DO Attending Provider Active Start : December 18, 2024 End: December 18, 2024 Dr. Lopez Alejandra DO Emergency Provider Active Start : December 18, 2024 End: December 18, 2024 Team Status: Inactive Member Role/Relationship Status Dates Dr. Citlaly العراقي MD Primary Care Provider Active Start: January 24, 2025 End: January 24, 2025 Dr. Mir Galindo DO Attending Provider Active Start: January 24, 2025 End: January 24, 2025 Dr. Mir Galindo DO Emergency Provider Active Start: January 24, 2025 End: January 24, 2025 Team Status: Active Member Role/Relationship Status Dates Dr. Citlaly العراقي MD Primary Care Provider Active Start: February 24, 2025 Dr. Jared James DO Emergency Provider Active Start: February 24, 2025 Dr. Tabitha Whitfield MD Admit Provider Active Star t: February 24, 2025 Dr. Tabitha Whitfield MD Attending Provider Active Start: February 24, 2025 Team Status: Active Member Role/Relationship Status Dates Dr. Citlaly العراقي MD Primary Care Provider Active Start: February 24, 2025 Dr. Jared James DO Emergency Provider Active Start: February 24, 2025 Dr. Tabitha Whitfield MD Admit Provider Active Star t: February 24, 2025 Dr. Tabitha Whitfield MD Attending Provider Active Start: February 24, 2025 Dr. Tabitha Whitfield MD Other Provider Active Star t: February 24, 2025 Team Status: Inactive Member Role/Relationship Status Dates Dr. Citlaly العراقي MD Primary Care Provider Active Start: February 24, 2025 End: February 26, 2025 Dr. Jared James DO Emergency Provider Active Start: February 24, 2025 End: February 26, 2025 Dr. Tabitha Whitfield MD Admit Provider Active Star t: February 24, 2025 End: February 26, 2025 Dr. Tabitha Whitfield MD Attending Provider Active Start: February 24, 2025 End: February 26, 2025 Fabrice Trevizo MD Other Provider Active Start: 2024 End: February 26, 2025 Dr. Le Noble MD Other Provider Active Start: February 24, 2025 End: February 26, 2025 Sandy Eugene MD Other Provider Active Start : February 24, 2025 End: February 26, 2025 Dr. Marva Mattson DO Other Provider Active St art: February 24, 2025 End: February 26, 2025 Dr. Salud Sinclair MD Other Provider Active Start: February 24, 2025 End: February 26, 2025 Dr. Richard Lemos MD Other Provider Active Sta rt: February 24, 2025 End: February 26, 2025 Dr. Mary Kay Patel MD Other Provider Active Start : February 24, 2025 End: February 26, 2025 Dr. Zac Mares MD Other Provider Active Start: February 24, 2025 End: February 26, 2025 Dr. Derrell Bahena MD Other Provider Active Start : February 24, 2025 End: February 26, 2025 Dr. Donny Cowan MD Other Provider Active Sta rt: February 24, 2025 End: February 26, 2025 Teresa Marcelino MD Other Provider Active Start : February 24, 2025 End: February 26, 2025 Dr. Krzysztof Mauro MD Other Provider Active St art: February 24, 2025 End: February 26, 2025 Dr. Marga Lam MD Other Provider Active Start : February 24, 2025 End: February 26, 2025 Dr. Nathanael Walker MD Other Provider Active Sta rt: February 24, 2025 End: February 26, 2025 Dr. Steff Peñaloza MD Other Provider Active Start: February 24, 2025 End: February 26, 2025 Dr. Damon Andres MD Other Provider Active St art: February 24, 2025 End: February 26, 2025 Dr. Lesia Montague MD Other Provider Active Star t: February 24, 2025 End: February 26, 2025 Dr. Billy Alexander MD Other Provider Active St art: February 24, 2025 End: February 26, 2025 Dr. Anila Tejada MD Other Provider Active Start: February 24, 2025 End: February 26, 2025 Ramon Doyle MD Other Provider Active Start: February 24, 2025 End: February 26, 2025 Team Status: Active Member Role/Relationship Status Dates Dr. Citlaly العراقي MD Primary Care Provider Active Start: February 25, 2025 Dr. Vita Aden MD Attending Provider Active Start: February 25, 2025 Team Status: Active Member Role/Relationship Status Dates Dr. Citlaly العراقي MD Primary Care Provider Active Start: February 25, 2025 Dr. Jared James DO Emergency Provider Active Start: February 25, 2025 Dr. Tabitha Whitfield MD Admit Provider Active Star t: February 25, 2025 Dr. Tabitha Whitfield MD Attending Provider Active Start: February 25, 2025 Dr. Tabitha Whitfield MD Other Provider Active Star t: February 25, 2025 Fabrice Trevizo MD Other Provider Active Start: 2024 Dr. Le Noble MD Other Provider Active Start: February 25, 2025 Sandy Eugene MD Other Provider Active Start : February 25, 2025 Dr. Marva Mattson DO Other Provider Active St art: February 25, 2025 Dr. aSlud Sinclair MD Other Provider Active Start: February 25, 2025 Dr. Richard Lemos MD Other Provider Active Sta rt: February 25, 2025 Dr. Mary Kay Patel MD Other Provider Active Start : February 25, 2025 Dr. Zac Mares MD Other Provider Active Start: February 25, 2025 Dr. Derrell Bahena MD Other Provider Active Start : February 25, 2025 Dr. Donny Cowan MD Other Provider Active Sta rt: February 25, 2025 Teresa Marcelino MD Other Provider Active Start : February 25, 2025 Dr. Krzysztof Mauro MD Other Provider Active St art: February 25, 2025 Dr. Marga Lam MD Other Provider Active Start : February 25, 2025 Dr. Nathanael Walker MD Other Provider Active Sta rt: February 25, 2025 Dr. Steff Peñaloza MD Other Provider Active Start: February 25, 2025 Dr. Damon Andres MD Other Provider Active St art: February 25, 2025 Dr. Lesia Montague MD Other Provider Active Star t: February 25, 2025 Dr. Billy Alexander MD Other Provider Active St art: February 25, 2025 Dr. Anila Tejada MD Other Provider Active Start: February 25, 2025 Ramon Doyle MD Other Provider Active Start: February 25, 2025 Team Status: Active Member Role/Relationship Status Dates Dr. Citlaly العراقي MD Primary Care Provider Active Start: February 26, 2025 Dr. Jared James DO Emergency Provider Active Start: February 26, 2025 Dr. Tabitha Whitfield MD Admit Provider Active Star t: February 26, 2025 Dr. Tabitha Whitfield MD Attending Provider Active Start: February 26, 2025 Dr. Tabitha Whitfield MD Other Provider Active Star t: February 26, 2025 Fabrice Trevizo MD Other Provider Active Start: 2024 Dr. Le Noble MD Other Provider Active Start: February 26, 2025 Sandy Eugene MD Other Provider Active Start : February 26, 2025 Dr. Marva Mattson DO Other Provider Active St art: February 26, 2025 Dr. Salud Sinclair MD Other Provider Active Start: February 26, 2025 Dr. Richard Lemos MD Other Provider Active Sta rt: February 26, 2025 Dr. Mar yKay Patel MD Other Provider Active Start : February 26, 2025 Dr. Zac Mares MD Other Provider Active Start: February 26, 2025 Dr. Derrell Bahena MD Other Provider Active Start : February 26, 2025 Dr. Donny Cowan MD Other Provider Active Sta rt: February 26, 2025 Teresa Marcelino MD Other Provider Active Start : February 26, 2025 Dr. Krzysztof Mauro MD Other Provider Active St art: February 26, 2025 Dr. Marga Lam MD Other Provider Active Start : February 26, 2025 Dr. Nathanael Walker MD Other Provider Active Sta rt: February 26, 2025 Dr. Steff Peñaloza MD Other Provider Active Start: February 26, 2025 Dr. Damon Andres MD Other Provider Active St art: February 26, 2025 Dr. Lesia Montague MD Other Provider Active Star t: February 26, 2025 Dr. Billy Alexander MD Other Provider Active St art: February 26, 2025 Dr. 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 Citlaly العراقي MD Primary Care Provider Active Start: February 28, 2025 Dionicio HANKS MD Attending Provider Active Start: February 28, 2025 Team Status: Active Member Role/Relationship Status Dates Dr. Citlaly العراقي MD Primary Care Provider Active Start: March 02, 2025 Dionicio HANKS MD Attending Provider Active Start: March 02, 2025 Team Status: Active Member Role/Relationship Status Dates Dr. Citlaly العراقي MD Primary Care Provider Active Start: March 07, 2025 Dionicio HANKS MD Attending Provider Active Start: March 07, 2025 Dionicio HANKS MD Referring Provider Active Start: March 07, 2025 Team Status: Active Member Role/Relationship Status Dates Dr. Citlaly العراقي MD Primary Care Provider Active Start: March 14, 2025 Dionicio HANKS MD Attending Provider Active Start: March 14, 2025 Team Status: Active Member Role/Relationship Status Dates Dr. Citlaly العراقي MD Primary Care Provider Active Start: March 14, 2025 Dionicio HANKS MD Attending Provider Active Start: March 14, 2025 Team Status: Inactive Member Role/Relationship Status Dates Dr. Citlaly العراقي MD Primary Care Provider Active Start: March 21, 2025 End: March 21, 2025 Dr. Citlaly العراقي MD Referring Provider Active Start: March 21, 2025 End: March 21, 2025 MACK Schaeffer Attending Provider Active S tart: March 21, 2025 End: March 21, 2025 Team Status: Inactive Member Role/Relationship Status Dates Dr. Citlaly العراقي MD Primary Care Provider Active Start: February 28, 2025 End: February 28, 2025 Julia Mtz NP, NP-C Attending Provider Active Start: February 28, 2025 End: February 28, 2025 Team Status: Active Member Role/Relationship Status Dates Dr. Citlaly العراقي MD Primary Care Provider Active Start: March 02, 2025 Dionicio HANKS MD Attending Provider Active Start: March 02, 2025 Team Status: Active Member Role/Relationship Status Dates Dr. Citlaly العراقي MD Primary Care Provider Active Start: March 07, 2025 Dionicio HANKS MD Attending Provider Active Start: March 07, 2025 Dionicio HANKS MD Referring Provider Active Start: March 07, 2025 Team Status: Active Member Role/Relationship Status Dates Dr. Citlaly العراقي MD Primary Care Provider Active Start: March 14, 2025 Dionicio HANKS MD Attending Provider Active Start: March 14, 2025 Team Status: Inactive Member Role/Relationship Status Dates Dr. Citlaly العراقي MD Primary Care Provider Active Start: March 21, 2025 End: March 21, 2025 Dr. Citlaly العراقي MD Referring Provider Active Start: March 21, 2025 End: March 21, 2025 MACK Schaeffer Attending Provider Active S tart: March 21, 2025 End: March 21, 2025 Team Status: Active Member Role/Relationship Status Dates Dr. Citlaly العراقي MD Primary Care Provider Active Start: March 22, 2025 Dionicio HANKS MD Attending Provider Active Start: March 22, 2025 Team Status: Inactive Member Role/Relationship Status Dates Dr. Citlaly العراقي MD Primary Care Provider Active Start: March 01, 2025 End: March 01, 2025 Dr. Dionicio Fong MD Attending Provider Active Start: March 01, 2025 End: March 01, 2025 Team Status: Active Member Role/Relationship Status Dates Dr. Citlaly العراقي MD Primary Care Provider Active Start: March 02, 2025 Dionicio HANKS MD Attending Provider Active Start: March 02, 2025 Team Status: Active Member Role/Relationship Status Dates Dr. Citlaly العراقي MD Primary Care Provider Active Start: March 07, 2025 Dionicio HANKS MD Attending Provider Active Start: March 07, 2025 Dionicio HANKS MD Referring Provider Active Start: March 07, 2025 Team Status: Active Member Role/Relationship Status Dates Dr. Citlaly العراقي MD Primary Care Provider Active Start: March 14, 2025 Dionicio HANKS MD Attending Provider Active Start: March 14, 2025 Team Status: Inactive Member Role/Relationship Status Dates Dr. Citlaly العراقي MD Primary Care Provider Active Start: March 21, 2025 End: March 21, 2025 Dr. Citlaly العراقي MD Referring Provider Active Start: March 21, 2025 End: March 21, 2025 TAMIKA SchaefferC Attending Provider Active S tart: March 21, 2025 End: March 21, 2025 Team Status: Active Member Role/Relationship Status Dates Dr. Citlaly العراقي MD Primary Care Provider Active Start: March 22, 2025 Dionicio HANKS MD Attending Provider Active Start: March 22, 2025 Team Status: Inactive Member Role/Relationship Status Dates Dr. Citlaly العراقي MD Primary Care Provider Active Start: March 07, 2025 End: March 07, 2025 TAMIKA Adame NPC Attending Provider Active Start: March 07, 2025 End: March 07, 2025 Team Status: Active Member Role/Relationship Status Dates Dr. Citlaly العراقي MD Primary Care Provider Active Start: March 14, 2025 Dionicio HANKS MD Attending Provider Active Start: March 14, 2025 Team Status: Inactive Member Role/Relationship Status Dates Dr. Citlaly العراقي MD Primary Care Provider Active Start: March 21, 2025 End: March 21, 2025 Dr. Citlaly العراقي MD Referring Provider Active Start: March 21, 2025 End: March 21, 2025 MACK Schaeffer Attending Provider Active S tart: March 21, 2025 End: March 21, 2025 Team Status: Active Member Role/Relationship Status Dates Dr. Citlaly العراقي MD Primary Care Provider Active Start: March 22, 2025 Dionicio HANKS MD Attending Provider Active Start: March 22, 2025 Team Status: Inactive Member Role/Relationship Status Dates Dr. Citlaly العراقي MD Primary Care Provider Active Start: March 10, 2025 End: March 10, 2025 Julia Mtz WHEELAGE CLERK, WHEELAGE CLERK-C Attending Provider Active Start: March 10, 2025 End: March 10, 2025 Team Status: Active Member Role/Relationship Status Dates Dr. Citlaly العراقي MD Primary Care Provider Active Start: March 14, 2025 Dionicio HANKS MD Attending Provider Active Start: March 14, 2025 Team Status: Inactive Member Role/Relationship Status Dates Dr. Citlaly العراقي MD Primary Care Provider Active Start: March 21, 2025 End: March 21, 2025 Dr. Citlaly العراقي MD Referring Provider Active Start: March 21, 2025 End: March 21, 2025 MACK Schaeffer Attending Provider Active S tart: March 21, 2025 End: March 21, 2025 Team Status: Active Member Role/Relationship Status Dates Dr. Citlaly العراقي MD Primary Care Provider Active Start: March 22, 2025 Dionicio HANKS MD Attending Provider Active Start: March 22, 2025 Team Status: Inactive Member Role/Relationship Status Dates Dr. Citlaly العراقي MD Primary Care Provider Active Start: March 16, 2025 End: March 16, 2025 Julia Mtz NP WHEELAGE CLERK-C Attending Provider Active Start: March 16, 2025 End: March 16, 2025 Team Status: Inactive Member Role/Relationship Status Dates Dr. Citlaly العراقي MD Primary Care Provider Active Start: March 21, 2025 End: March 21, 2025 Dr. Citlaly العراقي MD Referring Provider Active Start: March 21, 2025 End: March 21, 2025 MACK Schaeffer Attending Provider Active S tart: March 21, 2025 End: March 21, 2025 Team Status: Active Member Role/Relationship Status Dates Dr. Citlaly العراقي MD Primary Care Provider Active Start: March 22, 2025 Dionicio HANKS MD Attending Provider Active Start: March 22, 2025 Team Status: Active Member Role/Relationship Status Dates Dr. Citlaly العراقي MD Primary Care Provider Active Start: March 28, 2025 Dionicio HANKS MD Attending Provider Active Start: March 28, 2025 Team Status: Active Member Role/Relationship Status Dates Dr. Citlaly العراقي MD Primary Care Provider Active Start: April 05, 2025 Dionicio HANKS MD Attending Provider Active Start: April 05, 2025 Goals (unrecognized section and content) Goals may be documented in a n alternate sectionGoals may be documented in an alternate sectionGoals may be documented in an alternate sectionGoals may be documented in an alternate section INFORMATION SOURCE (unrecogn ized section and content) DATE CREATED AUTHOR 01/09/2025 [facility] DATE CREATED AUTHOR AUTHOR'S ORGANIZ ATION 02/28/2025 [facility] DATE CREATED AUTHOR AUTHOR'S ORGANIZ ATION 03/01/2025 [facility] DATE CREATED AUTHOR AUTHOR'S ORGANIZ ATION 05/29/2025 [facility] FOR RECORDS PERTAINING TO PATIENTS WHO ARE OR HAVE BEEN ENROLLED IN A CHEMICAL DEPENDENCY/SUBSTANCEABUSE PROGRAM, SOME INFORMATION MAY BE OMITTED. This clinical summary was aggregated from multiple sources. Caution should be exercised in using it in the provision of clinical care. This summary normalizes information from multiple sources, and as a consequence, information in this document may materially change the coding, format and clinical context of patient data. In addition, data may be omitted in some cases. CLINICAL DECISIONS SHOULD BE BASED ON THE PRIMARY CLINICAL RECORDS. [employer] provides no warranty or guarantee of the accuracy or completeness of information in this document.
--- NOTE | 2025-05-29 21:52 | RAD_ITS ---
PROCEDURE: HIP, UNI W/ PELVIS 2-3 VIEWS 05/29/2025 REASON FOR EXAM: FALL TECHNIQUE: Procedure Code: [facility] Modality: DX Procedure: HIP, UNI W/ PELVIS 2-3 VIEWS Laterality: FINDINGS: No acute fracture or dislocation. Minimal degenerative changes are noted within both hips and the pubic symphysis. Phleboliths are seen within the lower pelvis.. RAD/HIP, UNI W/ Pelvis 2-3 Views IMPRESSION: As above. Reading Location: [id number]
--- NOTE | 2025-05-29 22:22 | ED.VIS.FALL ---
HPI HPI - Fall History of Present Illness Chief Complaint: Fall Informant: patient and spouse/S.O. Occured/Mechanism Occurred: Today Mechanism/Context: Yes same level fall Usually ambulates: Non-Ambulatory Pain/Injury Pain Location: lower extremity Quality of Pain: Dull Current Severity: Mild Maximum Severity: Mild Narrative Narrative: 79-year-old female history of dementia, strokes, multiple falls. She is DNR comfort care. Patient is from [facility]. Reportedly was in a wheelchair unattended fell out of the wheelchair and they want her evaluated for hip pain. She is a very limited informant due to her dementia. Her is at bedside he filled in the history. He said this is her baseline. She has frequent falls. Patient is DNR. 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 Depression Inflammatory bowel disease Anxiety Home Medications ?Medication ?Instructions ?Recorded ?Last Taken ?Type fluoxetine 40 mg capsule 60 mg PO DAILY anxiety 10/17/21 Unknown History multivitamin 1 tab PO DAILY suppliment 10/17/21 Unknown History buspirone 10 mg tablet 10 mg PO TID mood 02/28/24 Unknown History melatonin 10 mg capsule 10 mg PO QHS PRN sleep 02/28/24 Unknown History memantine 10 mg tablet 10 mg PO BID memory 02/28/24 Unknown History polyethylene glycol 3350 17 17 g PO DAILY PRN constipation 03/08/24 Unknown History gram/dose oral powder (ClearLax) sennosides 8.6 mg tablet 17.2 mg PO BID PRN constipation 03/08/24 Unknown History (Evac-U-Gen (sennosides)) gabapentin 100 mg capsule 100 mg PO TID PRN PRN for pain 12/18/24 Unknown History losartan 25 mg tablet 25 mg PO DAILY bp 12/18/24 Unknown History trazodone 50 mg tablet 50 mg PO QHS sleep 12/18/24 Unknown History aspirin 81 mg chewable tablet 1 tab PO DAILY suppliment 02/24/25 Unknown History atorvastatin 40 mg tablet 40 mg PO QHS cholesterol 02/24/25 Unknown History fluoxetine 20 mg capsule 60 mg PO DAILY depression 02/24/25 Unknown History primidone 50 mg tablet (Mysoline) 25 mg PO QHS sleep/tremmors 02/24/25 Unknown History clopidogrel 75 mg tablet (Plavix) 75 mg PO DAILY #90 tabs 02/26/25 Unknown Rx potassium chloride 20 mEq 20 meq PO DAILY #30 tabs 02/26/25 Unknown Rx tablet,extended release(part/cryst) ondansetron HCl 4 mg tablet 4 mg PO Q8H 03/21/25 Unknown History pantoprazole 40 mg tablet,delayed 40 mg PO QDAY 03/21/25 Unknown History release Allergy/AdvReac Type Severity Reaction Status Date / Time No Known Allergies Allergy Verified 05/29/25 20:48 Family History no significant family his Social History household members: spouse housing: house Smoking Status: Never smoker ROS ROS ED ROS Narrative Unable due to the patient's dementia. denies any recent illness. Review of Systems ROS Unobtainable: due to mental status EXAM Physical Exam Narrative Exam Narrative: 79-year-old female lying in bed vital signs stable afebrile. Does not look septic toxic. No distress. at bedside. H EENT exam pupils round react light. Moist mucous membranes. She does have a left facial droop that is chronic from her prior stroke. No signs of trauma to her face or scalp. No hematoma or laceration. C-spine neck nontender. Back nontender. No bruising. Lungs clear to auscultation. Heart regular rhythm rate about 80 no murmur. Chest wall and ribs nontender. Abdomen soft nontender. Nondistended. Pelvic girdle intact. She has no shortening or rotation to either hip. There is no specific pelvis tenderness. There is no specific bruises currently. She can flex and extend at both knees and hips. There is no shortening or rotation. Dorsi plantarflexion is intact. Upper extremities are nontender. 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 Neurologically she is demented. She does answer limited questions and follows limited commands. Again per this is her baseline. Const Vital Signs: 05/29/25 20:48 05/29/25 20:53 Temperature 98.3 F Temperature Source Oral Pulse Rate 80 Respiratory Rate 15 Respiratory Effort Normal Non-Labored Respiratory Depth Normal Respiratory Pattern Normal Blood Pressure 131/79 H Blood Pressure Mean 96 Pulse Ox 97 Oxygen Delivery Method Room Air Room Air MDM MDM MDM Narrative Medical decision making narrative: 79-year-old demented female fell out of the wheelchair injuring her left hip. Hip and pelvis x-rays were obtained. There is no acute fracture. No dislocation of the hip. There may be an old suprapubic rami fracture. Versus chronic changes. She is nontender over that site I do not think it is acute. She will be discharged back to the extended-care facility. says she normally does not ambulate and stays in the wheelchair. History & Record Review Discussion w/independent historian: Patient and Family ( at bedside.) Additional record(s) reviewed:: Prior inpatient record, Prior outpatient record, Prior ED visit and Prior labs Radiography Diagnostic Testing: Left hip and pelvis x-ray interpreted by myself shows chronic changes. No hip fracture or dislocation. Possible old suprapubic rami fracture does not appear to be acute. And could be chronic degenerative changes also. Discharge Plan Triage Chief Complaint: Fall ED Provider: Riley Warner Dx/Rx/DC Orders Clinical Impression: Fall, Contusion of hip, left, History of dementia, History of stroke, DNR (do not resuscitate) Instructions: ED Soft Tissue Contusion Prescriptions: No Action ondansetron HCl 4 mg tablet 4 mg PO Q8H pantoprazole 40 mg tablet,delayed release (DR/EC) 40 mg PO QDAY fluoxetine 40 mg capsule 60 mg PO DAILY Patient Comments: TAKE 1 CAPSULE BY MOUTH ONCE DAILY multivitamin Tablet 1 tab PO DAILY aspirin 81 mg tablet,chewable 1 tab PO DAILY atorvastatin 40 mg tablet 40 mg PO QHS fluoxetine 20 mg capsule 60 mg PO DAILY primidone [Mysoline] 50 mg tablet 25 mg PO QHS potassium chloride 20 mEq tablet,ER particles/crystals 20 meq PO DAILY Qty: 30 0RF clopidogrel [Plavix] 75 mg tablet 75 mg PO DAILY Qty: 90 0RF buspirone 10 mg tablet 10 mg PO TID memantine 10 mg tablet 10 mg PO BID melatonin 10 mg capsule 10 mg PO QHS PRN (Reason: sleep) sennosides [Evac-U-Gen (sennosides)] 8.6 mg tablet 17.2 mg PO BID PRN (Reason: constipation) polyethylene glycol 3350 [ClearLax] 17 gram/dose powder 17 g PO DAILY PRN (Reason: constipation) trazodone 50 mg tablet 50 mg PO QHS gabapentin 100 mg capsule 100 mg PO TID PRN PRN (Reason: for pain) losartan 25 mg tablet 25 mg PO DAILY Primary Care Provider: Dionicio Fong Referrals: Dionicio Fong MD [Primary Care Provider, Internal Medicine] - As Needed Activity Restrictions/Additional Instructions: X-ray looks good tonight. No signs of a hip fracture. This should progressively get better. Ice and Tylenol for pain. If not improving have it reevaluated with a second x-ray. Print Language: Maori Disposition Disposition: Home, Self Care
[2025-05-29 22:34] VITALS: BP 111/50; PULSE 77; RESP 16; TEMP 36.8; O2SAT 97
--- NOTE | 2025-05-29 22:37 | ED.RN ---
attempted to call report to [place]. No answer.
[2025-05-29 22:44] VITALS: BP 95/67; PULSE 73; O2SAT 93
[2025-05-30] VITALS: BP 88/50; PULSE 81; RESP 16; O2SAT 97
[2025-05-30 02:00] VITALS: BP 108/57; PULSE 73; RESP 16; O2SAT 93
== END 2025-05-30 02:27 | disposition home or self-care (01) ==
PROVIDERS: Emergency Provider Emergency Medicine; PCP Internal Medicine; Visit Provider Emergency Medicine
DX: S70.02XA Contusion of left hip, initial encounter (principal); F03.90 Unspecified dementia, unspecified severity, without behavioral disturbance, psychotic disturbance, mood disturbance, and anxiety; Z51.5 Encounter for palliative care; E78.5 Hyperlipidemia, unspecified; Z86.73 Personal history of transient ischemic attack (TIA), and cerebral infarction without residual deficits; W05.0XXA Fall from non-moving wheelchair, initial encounter
CPT/HCPCS: 73502; 99284